=== PATIENT | male | born 1950 | race Caucasian/White ===

== ENCOUNTER 2018-01-29 16:06 | Inpatient (IN) | payer MEDICARE, OTHER ==
--- NOTE | 2018-01-29 16:13 | ED Physician Chart ---
ED Chief Complaint/HPI - Patient Information Date Seen:: 01/29/18 Time Seen:: 16:00 Chief Complaint:: Redness and Swelling History of Present Illness:: onset x 3 days of right sided redness and swelling; no report of trauma, H/As, S /T, neck pain, C/P, SOB, Abd. Pain, A/N/V/D/C, fever, chills, or urinary s/s Historian:: Patient, EMS Review:: Nurse's Note Reviewed, Old Chart Reviewed, EMS run form Reviewed ED Review of Systems - Review of Systems General/Constitutional: Fever, No chills, No weight loss, No weakness, No diaphoresis, No edema, No loss of appetite Skin: No skin lesions, No rash, No bruising Head: No headache, No light-headedness Eyes: No loss of vision, No pain, No diplopia ENT: No earache, No nasal drainage, No sore throat, No tinnitus Neck: No neck pain, No swelling, No thyromegaly, No stiffness, No mass noted Cardio Vascular: No chest pain, No palpitations, No PND, No orthopnea, No edema Pulmonary: No SOB, No cough, No sputum, No wheezing GI: No nausea, No vomiting, No diarrhea, No pain, No melena, No hematochezia, No constipation, No hematemesis G/U: No dysuria, No frequency, No hematuria, No nacturia Musculoskeletal: No bone or joint pain, No back pain, No muscle pain Endocrine: No polyuria, No polydipsia Psychiatric: No prior psych history, No depression, No anxiety, No suicidal ideation, No homicidal ideation, No auditory hallucination, No visual hallucination Hematopoietic: No bruising, No lymphadenopathy Allergic/Immuno: No urticaria, No angioedema Neurological: No syncope, No focal symptoms, No weakness, No paresthesia, No headache, No seizure, No dizziness, No confusion, No vertigo ED Past Medical History - Past Medical History Obtainable: Yes Past Medical History: HTN, Asthma/COPD, CVA/TIA, Dyslipidemia, ESRD, Arthritis Family History: Diabetes Melitus, HTN Social History: Non Smoker, No Alcohol, No Drug Use, Single, Care Facility Surgical History: other (Dialysis Catheter) Psychiatricy History: None Medication: Reviewed ED Physical Exam - Physical Examination General/Constitutional: Awake, Well-developed, well-nourished, Alert, No distress, GCS 15, Non-toxic appearing, Ambulatory Head: Atraumatic Eyes: Lids, conjuctiva normal, PERRL, EOMI Skin: Nl inspection, No rash, No skin lesions, No ecchymosis, Well hydrated, No lymphadenopathy Other Skin comments:: + cellulitis ENMT: External ears, nose nl, TM canals nl, Nasal exam nl, Lips, teeth, gums nl , Oropharynx nl, Tonsils nl Neck: Nontender, Full ROM w/o pain, No JVD, No nuchal rigidity, No bruit, No mass, No stridor Respiratory: Nl effort/Exclusion, Clear to Auscultation, No Wheeze/Rhonchi/Rales Other Respiratory comments:: Lungs: Decreased Breath Sounds on the right side Cardio Vascular: RRR, No murmur, gallop, rubs, NL S1 S2, Carotid/Femoral/Distal pulses equal bilaterally GI: No tenderness/rebounding/guarding, No organomegaly, No hernia, Normal BS's, Nondistended, No mass/bruits, No McBurney tenderness : No CVA tenderness Extremities: No tenderness or effusion, Full ROM, normal strength in all extremities, No edema, Normal digits & nails Neuro/Psych: Alert/oriented, DTR's symmetric, Normal sensory exam, Normal motor strength, Judgement/insight normal, Mood normal, Normal gait, No focal deficits Misc: Normal back, No paraspinal tenderness ED Labs/Radiology/EKG Results - Lab Results Comments:: WBC: 12.2; BUN: 47; Cr: 5.5 - Radiology Results Comments:: CXR: Right Pleural effusion - EKG Interpretations EKG Time:: 16:35 Rate & Rhythm: 67; NSR Comments:: non-specific st-t changes ED Septic Shock - . Is Septic Shock (SBP<90, OR Lactate>4 mmol\L) present?: No ED Reassessment (Disposition) - Reassessment Reassessment Condition:: Improved - Diagnosis Diagnosis:: Right Pleural Effusion; Leukocytosis; Cellulitis; Facial Abscess; ESRD - Aftercare/Follow up Instructions Aftercare/Follow-Up Instructions:: Counseled pt regarding lab results/diagnosis & need follow up, Counseled pt & family regarding lab results/diagnosis & need follow up - Patient Disposition Discharge/Transfer:: Acute Care w/in this hosp Accepting Physician:: Dr. Verdugo Time Called:: 1800 Time Responded:: 18:00 Admitted to:: Med/Surg Spoke to:: Dr. Verdugo Admitting Medical Physician:: Dr. Verdugo Condition at Disposition:: Stable, Improved
[2018-01-29 17:15] LABS: INR 0.95 (0.5-1.4); PROTHROMBIN TIME (TEST) 9.9 SECONDS (9.5-11.5)
[2018-01-29 17:20] LABS: ALB/GLOB RATIO 0.6 (1.0-1.8); ALBUMIN 2.4 gm/dL (4.2-5.5); ANION GAP 9.6 (7.0-16.0); BILIRUBIN,TOTAL 0.4 mg/dL (0.3-1.0); CALCIUM SERUM 9.1 mg/dL (8.6-10.3); CARBON DIOXIDE 34.7 mEq/L (21.0-31.0); GFR AFRICAN-AMERICAN 13.5 ml/min (>90); GFR NON AFRICAN-AMERICAN 11.1 ml/min; POTASSIUM SERUM 4.3 mEq/L (3.5-5.1); TOTAL PROTEIN,SERUM 6.2 gm/dL (6.0-8.3)
[2018-01-29 17:38] LABS: % BASOPHILS 0.8 % (0.0-2.0); % NEUTROPHILS 74.7 % (40.0-80.0); BASOPHILE ABSOLUTE 0.1 Th/cumm (0-0.2); LYMPHOCYTE ABSOLUTE 1.8 Th/cmm (1.5-3.0); MONOCYTE ABSOLUTE 0.9 Th/cmm (0.3-1.0)
[2018-01-29 17:46] LABS: % EOSINOPHILS 2.3 % (0.0-5.0); % LYMPHOCYTES 14.5 % (20.0-50.0); % MONOCYTES 7.7 % (2.0-10.0); EOSINOPHILE ABSOLUTE 0.3 Th/cmm (0.1-0.4); HEMATOCRIT 33.7 % (41.0-60); HEMOGLOBIN 11.4 gm/dL (12-16); MEAN CELL VOLUME 92.7 fl (80-99); MEAN CORPUSCULAR HEMOGLOBIN 31.5 pg (27.0-31.0); MEAN CORPUSCULAR HGB CONC 33.9 pg (28.0-36.0); MEAN PLATELET VOLUME 7.2 fl; NEUTROPHILE ABSOLUTE 9.1 Th/cmm (1.8-8.0); PLATELET COUNT 374 Th/cmm (150-400); RED BLOOD COUNT 3.63 Mil/cmm (3.80-5.80); RED CELL DISTRIBUTION WIDTH 14.6 % (11.5-20.0)
[2018-01-29] MEDS ORDERED: cefTRIAXone 1 GM in Sodium Chloride 0.9% 50 ML IV ONE (17:46)
[2018-01-29 17:48] LABS: CREATININE - SERUM 5.5 mg/dL (0.7-1.3)
[2018-01-29 17:49] LABS: WHITE BLOOD COUNT 12.2 Th/cmm (4.8-10.8)
[2018-01-29 22:49] LABS: URINE MICROSCOPIC INDICATED? YES; URINE SOURCE MIDSTREAM
[2018-01-29 22:58] LABS: URINE BILIRUBIN NEGATIVE (NEGATIVE); URINE BLOOD MODERATE (NEGATIVE); URINE GLUCOSE (UA) NEGATIVE (NEGATIVE); URINE KETONE NEGATIVE (NEGATIVE); URINE LEUKOCYTE ESTERASE LARGE (NEGATIVE); URINE NITRATE NEGATIVE (NEGATIVE); URINE PH 8.5 (4.6 - 8.0); URINE PROTEIN 100 mg/dL (NEGATIVE); URINE UROBILINOGEN 0.2 E.U./dL (0.2 - 1.0)
[2018-01-29 23:02] LABS: URINE CLARITY HAZY (CLEAR); URINE COLOR YELLOW
[2018-01-29 23:06] LABS: URINE BACTERIA MANY /hpf (NONE SEEN); URINE EPITHELIAL CELLS FEW /lpf (FEW); URINE WBC >100 /hpf (0-5)
[2018-01-29] MEDS ORDERED: Non-Formulary Item 1 EA (Lactobacillus Acidophilus [Acidophilus Lactobacillus] 1 EACH) PO SCH (23:15)
[2018-01-29] MEDS ORDERED: Non-Formulary Item 1 EA (Protein Hydrolysate,Milk [Liquid Protein Fortifier] 30 ML) PO SCH (23:15)
[2018-01-29] MEDS ORDERED: Morphine Sulfate 2 mg/mL 1mL Syr IVP PRN (23:18)
[2018-01-29] MEDS: Hydrocodone/APAP 5mg/325mg Tab PO PRN (23:29)
[2018-01-30] MEDS ORDERED: Morphine Sulfate 4 mg/mL 1mL Syr ONE (04:00)
[2018-01-30 06:04] VITALS: BP 180/84
[2018-01-30] MEDS ORDERED: Albuterol Nebulizer 2.5mg/3mL HHN PRN (08:00)
--- NOTE | 2018-01-30 08:13 | Diagnostic Imaging Report ---
Exam: Portable chest x-ray HISTORY: Pain. Prior exams: None Findings: Portable examination of the chest at 1625 hours was reviewed, no prior studies available for comparison The study demonstrates complete opacification of the right hemithorax most likely a fusion atelectasis with superimposed pneumonia. Endobronchial lesion cannot be excluded. The left lung parenchyma is well aerated. Bony thorax intact. 2 cm amorphous calcification is noted near the left acromioclavicular joint. Right-sided subclavian catheter terminates in superior vena cava IMPRESSION: Complete opacification right hemithorax. Clinical correlation and bronchoscopy may be helpful with follow-up examination recommended
[2018-01-30] MEDS: Lactobacillus Rhamnosus GG 15 Billion CFU CAP.SPRINK PO SCH (09:41)
[2018-01-30] MEDS: Vitamin B Complex w/Vitamin C Tab PO SCH (09:43)
[2018-01-30] MEDS: Morphine Sulfate 4 mg/mL 1mL Syr IVP PRN ×2 (10:15→14:36)
--- NOTE | 2018-01-30 10:26 | Diagnostic Imaging Report ---
Ultrasound soft tissues neck History: Pain rule out facial abscess Comparison: None Technique/procedure: Sonography of concern along the right mandibular region was performed in multiple planes. There is edema seen along the right mandibular region. Small nodules are seen in this region largest measuring 0.4 x 0.3 cm. No drainable fluid collection identified. IMPRESSION: Edema along the right mandibular area in the region of concern which may be due to cellulitis. No drainable fluid collection identified at this time. Small nodule seen in this region, nonspecific, and may represent small lymph nodes. If necessary CT follow-up may be helpful.
--- NOTE | 2018-01-30 12:21 | History & Physical ---
ADMIT DATE: CHIEF COMPLAINT: Right facial swelling and redness. HISTORY OF PRESENT ILLNESS: This is a 67-year-old gentleman, who resides at [facility] and who has past medical history significant for end-stage renal disease, on dialysis for about 7 years; COPD; hyperlipidemia; type 2 diabetes, who was in his usual state of health until 3 days ago when he woke up with right facial swelling, redness and pain. The patient denies any trauma or any unusual events. He had hemodialysis on Monday and on Monday as he woke up that is when he felt the swelling and the pain. He denies any fever, chills and again no trauma reported. Pertinent findings on admission included a white count of 12.2, UA consistent with a UTI and an x-ray showing complete opacification of the right hemithorax. PAST MEDICAL HISTORY: As noted above. He was on peritoneal dialysis up to a few months ago until he was diagnosed with peritonitis. He is currently on hemodialysis Tuesdays, and Saturdays; also chronic anemia; malnutrition. PAST SURGICAL HISTORY: He had cholecystectomy many years ago and he also had a drainage tube placed at that time and peritoneal dialysis placement. FAMILY HISTORY: Likely noncontributory to this admission. SOCIAL HISTORY: Longstanding history of nicotine dependence. He smoked about a pack a day for about 50 years, he quit a few months ago. Denies any alcohol or illicit drug usage. He lives at [facility]. ALLERGIES: NKDA. OUTPATIENT MEDICATIONS: Eliquis 2.5 b.i.d.; aspirin 81 q. day; fungal cream q. daily; Tylenol 650 q. 6 hours p.r.n. for pain; atorvastatin 40 at bedtime; Sensipar 30 q. day; Colace 100 q. day; Epogen 10,000 units Monday, Monday and Fridays; Nephro-Fito 1 tab q. day; Lasix 40 q. day; lactobacillus acidophilus 1 tab b.i.d.; Xopenex p.r.n. for SOB; Megace 40 q. day; metoprolol 50 b.i.d.; midodrine 5 t.i.d.; protein supplements t.i.d. with meals; Renvela 800 mg t.i.d.; Spiriva 18 mcg q. day. REVIEW OF SYSTEMS: CONSTITUTIONAL: No fever or chills, no recent weight loss. CARDIAC: No chest pain, palpitations. PULMONARY: Chronic cough but no shortness of breath. Denies any hemoptysis. GASTROINTESTINAL: No bowel habit changes. GENITOURINARY: Denies any dysuria or hematuria. NEUROLOGIC: No changes in vision, no headaches, no blurry vision. PHYSICAL EXAMINATION: VITAL SIGNS: Temperature 97.2, pulse 69, BP 174/85, respirations 18, satting 95-97% on room air. GENERAL: Well-developed, well-nourished, awake, alert and oriented x 3, not in acute distress. HEAD: He is atraumatic, normocephalic. On the right facial exam around the parotid gland, there is noticeable swelling and some warmth to touch. Currently, there is mild erythema as compared to the left side. There are no open wounds or drainage. PERRL. EOMI. NECK: There is no JVD or LAD. CARDIAC: Regular rate and rhythm with distant sounds. S1 and S2 are present. LUNGS: Diminished on the right side, otherwise clear to auscultation bilaterally. ABDOMEN: Soft, supple, nontender, nondistended, normoactive bowel sounds. There is a peritoneal dialysis catheter in place. EXTREMITIES: Lower extremity, there is no edema. LABORATORY DATA: White count 12.2, H and H 11/34 with a platelet count of 374. Sodium 135, potassium 4.3, chloride 95, CO2 34, BUN 47, creatinine 5.5. Troponin level was negative. UA shows positive for protein, moderate blood, large leukocyte esterase, 2-5 rbc's, over 100 wbc's and many bacteria. DIAGNOSTICS: Chest x-ray, again please refer to the HPI. EKG shows sinus rhythm, 67. ASSESSMENT: 1. Right facial swelling and redness consistent with cellulitis. Rule out abscess versus parotitis. 2. Complete opacification of the right hemithorax. Differential diagnosis includes lung collapse versus pleural effusion vs obstruction (mucous plug , mass). 3. Leukocytosis. 4. Urinary tract infection. 5. History of end-stage renal disease, on hemodialysis. 6. History of chronic obstructive pulmonary disease - appears to be stable clinically. 7. History of hyperlipidemia. 8. History of diabetes. PLAN: The patient has been admitted to the Medical/Surgical floor for further management and care. The patient has been placed on vancomycin, Rocephin and will be kept on his other medications as scheduled. An ultrasound will be done of the right facial swelling to rule out abscess and the patient will also be seen by Nephrology and Pulmonary given his hemodialysis and opacification of the right hemithorax. JOB# [id number] [place]
[2018-01-30] MEDS ORDERED: Albumin 25% 25gm/100mL 25 GM/100 ML BTL IV ONE (14:23)
[2018-01-30] MEDS: Ipratropium Neb 0.5 mg/2.5 mL UD HHN SCH ×2 (14:48→18:48)
[2018-01-30] MEDS: Albuterol/Ipratropium Neb 3 ML AERS HHN SCH ×2 (14:48→18:48)
[2018-01-30] MEDS: cefTRIAXone 1 GM in Sodium Chloride 0.9% 50 ML IV SCH (21:20)
[2018-01-31] MEDS: Albuterol/Ipratropium Neb 3 ML AERS HHN SCH ×7 (00:51→23:35)
[2018-01-31] MEDS: Ipratropium Neb 0.5 mg/2.5 mL UD HHN SCH (00:57)
[2018-01-31 05:37] LABS: % BASOPHILS 1.1 % (0.0-2.0); % EOSINOPHILS 2.4 % (0.0-5.0); % LYMPHOCYTES 14.3 % (20.0-50.0); % MONOCYTES 8.5 % (2.0-10.0); % NEUTROPHILS 73.7 % (40.0-80.0); BASOPHILE ABSOLUTE 0.1 Th/cumm (0-0.2); EOSINOPHILE ABSOLUTE 0.3 Th/cmm (0.1-0.4); HEMATOCRIT 32.4 % (41.0-60); HEMOGLOBIN 10.9 gm/dL (12-16); LYMPHOCYTE ABSOLUTE 1.9 Th/cmm (1.5-3.0); MEAN CORPUSCULAR HGB CONC 33.7 pg (28.0-36.0); MONOCYTE ABSOLUTE 1.1 Th/cmm (0.3-1.0); PLATELET COUNT 433 Th/cmm (150-400); RED BLOOD COUNT 3.52 Mil/cmm (3.80-5.80); RED CELL DISTRIBUTION WIDTH 14.6 % (11.5-20.0)
[2018-01-31 05:43] LABS: ANION GAP 13.1 (7.0-16.0); CALCIUM SERUM 8.8 mg/dL (8.6-10.3); CARBON DIOXIDE 26.8 mEq/L (21.0-31.0); GFR AFRICAN-AMERICAN 15.4 ml/min (>90); GFR NON AFRICAN-AMERICAN 12.7 ml/min; PHOSPHOROUS 4.1 mg/dL (2.5-5.0); POTASSIUM SERUM 3.9 mEq/L (3.5-5.1)
[2018-01-31 05:44] LABS: WHITE BLOOD COUNT 13.4 Th/cmm (4.8-10.8)
[2018-01-31 06:00] LABS: CREATININE - SERUM 4.9 mg/dL (0.7-1.3)
--- NOTE | 2018-01-31 08:08 | Diagnostic Imaging Report ---
CHEST X-RAY: AP view INDICATION: Shortness of breath COMPARISON: Chest x-ray 01/29/2018 FINDINGS: Right dialysis catheter is stable. Persistent complete opacification of the right hemithorax is noted. Congestive changes are noted. IMPRESSION: Persistent complete opacification of the right hemithorax which may be due to combination of large right effusion, right lung collapse and pneumonia. Cortical correlation and follow-up recommended. Overall no significant change. Congestive changes.
[2018-01-31] MEDS: Morphine Sulfate 4 mg/mL 1mL Syr IVP PRN (08:17)
[2018-01-31] MEDS: Lactobacillus Rhamnosus GG 15 Billion CFU CAP.SPRINK PO SCH (08:27)
[2018-01-31] MEDS: Vitamin B Complex w/Vitamin C Tab PO SCH (08:28)
--- NOTE | 2018-01-31 08:51 | Consultation ---
DATE OF CONSULTATION: 01/30/[address] Verdugo. Thank you very much, Dr. Verdugo for this consultation. HISTORY OF PRESENT ILLNESS: The patient is a 67-year-old male, who presents with abnormal labs. Chest x-ray showed right lung atelectasis versus collapse. The patient denies any shortness of breath. He is on dialysis 3 times a week. He has history of smoking for over 50 years, quit 2 months ago, he said. He denies any cough or congestion. No chest pain. OTHER PAST MEDICAL HISTORY: Hypertension. SOCIAL HISTORY: As above. REVIEW OF SYSTEMS: GENERAL: Weakness, no fatigue. CARDIOVASCULAR: No chest pain. RESPIRATORY: Shortness of breath. GASTROINTESTINAL: No nausea or vomiting. PHYSICAL EXAMINATION: GENERAL: Awake, alert, not in acute distress. VITAL SIGNS: Temperature 97.2, pulse 69, respiration is 20, blood pressure 174/85, saturation 95% on 2 liters oxygen. HEENT: Atraumatic, normocephalic. Pupils are equal and reactive to light and accommodation. Ears, nose and throat are normal. NECK: Supple. No JVD. CHEST: There is significant decreased breath sounds on right side. Few rhonchi bilaterally. HEART: Regular rate and rhythm. ABDOMEN: Soft. EXTREMITIES: No edema. Chest x-ray: Opacification of the right lung. LABORATORY DATA: WBC 12.2, hemoglobin is 7.4, hematocrit 33.7, platelets is 374. Sodium is 135, potassium 4.3, BUN is 47, creatinine 5.5. UA shows some WBCs and protein and large leukocyte esterase. IMPRESSION: 1. A 67-year-old male with a right lung opacification, possible endobronchial lesion versus atelectasis versus effusion as well. 2. Possibly underlying chronic obstructive pulmonary disease for many years of smoking. 3. Renal failure, on dialysis. 4. Urinary tract infection. PLAN: 1. IV antibiotics. 2. Nebulizer treatment. 3. Steroids. 4. CPT, supportive care, dialysis. 5. CT of the chest for further evaluation might need a bronchoscopy later. Thank you very much for this consultation. I will follow the patient with you. JOB# [id number]
--- NOTE | 2018-01-31 10:33 | Diagnostic Imaging Report ---
CT Chest without IV contrast HISTORY: Pleural effusion/pneumonia/atelectasis COMPARISON: Chest x-ray earlier the same day. Technique: Axial images were obtained from the base of the neck to the upper abdomen without IV contrast. Reconstructions were made. Total DLP 348, CTD I 17.8 Findings: A right IJ dialysis catheter is noted terminating within the cavoatrial junction. Assessment of the mediastinum is limited due to lack of IV contrast. No evidence of mediastinal lymphadenopathy. Heavy atherosclerosis is noted with heavy coronary artery calcifications. Heart size is normal. Trace pericardial effusion is noted. No evidence of an aortic aneurysm. There is a large right pleural effusion. There is also collapse of the right lung. Small left pleural effusion is seen with left basal compressive atelectatic changes. The upper abdomen demonstrates evidence of prior cholecystectomy. Generalized prominence of the common bile duct is noted measuring up to 1.2 cm. There is severe bilateral renal atrophy. Heavy atherosclerosis is noted. Degenerative changes of the spine are noted with multilevel Schmorl's node formation. IMPRESSION: Large right effusion with compressive atelectasis and collapse of the right lung. There may be underlying pneumonia. Small left effusion with left basal passive atelectatic consolidative changes. Heavy atherosclerotic vascular disease with coronary artery calcifications. Right IJ dialysis catheter with tip in the cavoatrial junction Severe bilateral renal atrophy Evidence of prior cholecystectomy. Common common bile duct measures up to 1.2 cm may be related to patient's previous cholecystectomy.
[2018-01-31] MEDS ORDERED: Vancomycin HCl 1.5 GM in Sodium Chloride 0.9% 500 ML IV ONE (11:00)
--- NOTE | 2018-01-31 13:21 | Consultation ---
DATE OF CONSULTATION: 01/30/2018 REASON FOR CONSULT: Electrolyte imbalance and fluid management. HISTORY OF PRESENT ILLNESS: This is a 67-year-old male with past medical history of end-stage renal disease, on hemodialysis, who came in because of right facial edema/erythema. Three days prior to admission, the patient noticed progressive increase in his right facial edema. A few hours prior to admission, he noted erythema along with increase amount of edema. He denied any fever/chills, facial pain, trauma, earache, toothache, nor any drainage. His white count was 12.2. Chest x-ray revealed complete right lung opacification. Facial ultrasound revealed right mandibular edema, questionable cellulitis with small lymph nodes. PAST MEDICAL HISTORY: 1. End-stage renal disease, on hemodialysis. The patient was on peritoneal dialysis, but developed peritonitis. Thus, he was switched to hemodialysis. 2. Type 2 diabetes mellitus. 3. Renal osteodystrophy. 4. Anemia, iron deficiency/chronic disease. 5. Secondary hyperparathyroidism. 6. COPD. PAST SURGICAL HISTORY: 1. Status post cholecystectomy. 2. Status post removal of infected PD catheter. CURRENT MEDICATIONS: He is currently on acetylcysteine, atorvastatin, ceftriaxone, cinacalcet, Epogen, furosemide, ipratropium, lactobacillus, megestrol acetate, metoprolol, midodrine, sevelamer, and vancomycin. ALLERGIES: No known drug allergies. SOCIAL HISTORY: He did have a history of smoking and quit only about 2 months ago. Denied any alcohol abuse. He used to be delivery truck driver heavy. FAMILY HISTORY: Noncontributory to present illness. REVIEW OF SYSTEMS: GENERAL: He did complain of weakness. Appetite had been fair. No fever or chills. HEENT: No mention of headaches nor dizziness. However, he did have that right facial swelling with some erythema. Denied any headaches, dizziness, blurring of vision, or decrease in hearing acuity. CARDIORESPIRATORY: Has a history of hypertension. No chest pain, palpitations, diaphoresis, cough and surprisingly, no shortness of breath nor congestion. GASTROINTESTINAL: No nausea or vomiting, abdominal pain or cramping, hematemesis, melena, hematochezia nor diarrhea. ENDOCRINE: No history of dyslipidemia nor any thyroid abnormalities. MUSCULOSKELETAL: Multiple joint arthralgias. GENITOURINARY: History of kidney failure, on hemodialysis. NEUROPSYCH: No syncopal episode nor seizure activity. PHYSICAL EXAMINATION: GENERAL: The patient is alert, verbal, and comfortable. VITAL SIGNS: Blood pressure is 174/85, pulse is 69, and temperature 97.2 degrees. SKIN: Good turgor and warm. No rash, no jaundice appreciated. HEENT: Head is normocephalic and atraumatic. Eyes; extraocular muscles intact. Pupils are equal, round, and reactive to light and accommodate. Anicteric sclerae. Pale conjunctivae. Nose, midline nasal septum. Mouth: Dry mucosa, adequate dentition. Face; mild right facial swelling with minimal erythema. No tenderness on palpation, no warmth. NECK: Supple. No adenopathy. No cervical nodes. Trachea palpated in the midline. CHEST AND CARDIOVASCULAR SYSTEM: S1 and S2. No rub, murmur and no gallop appreciated. Point of maximal impulse fifth intercostal space, left midclavicular line. No abdominal or femoral bruits are appreciated. LUNGS: Equal expansion. No use of accessory muscles. No supraclavicular retractions. Markedly diminished right-sided breath sounds, but no rales, wheezes, nor rhonchi appreciated. ABDOMEN: Flat and soft. Positive for bowel sounds. No bruits either diastolic or systolic. RECTAL: The patient refused. GENITOURINARY: Normal-appearing male genitalia. MUSCULOSKELETAL: No effusions present in his joints with adequate range of motion. EXTREMITIES: No evidence of edema, cyanosis, nor clubbing with palpable femoral, popliteal, and dorsalis pedis pulses. NEUROLOGIC: The patient is alert, verbal. Motor is 5/5. Cranial nerves 2-12 intact. Sensory intact. LABORATORY DATA: White count 12.2, hemoglobin 11.4, hematocrit 33.7, platelets 374, and polys 74.7%. Sodium is 135, potassium 4.3, chloride 95, CO2 34, BUN 47, creatinine 5.5, glucose 92, and albumin 2.4. Urine revealed large leukocyte esterase, greater than 100 wbc's, many bacteria. IMPRESSION: 1. End-stage renal disease, on hemodialysis. 2. Right facial edema with erythema, possible cellulitis, rule out any lymph node obstruction. 3. Right lung opacification with history of longstanding smoking, possible effusion secondary to malignancy or even some form of pneumonitis; mucus plug; severe atelectasis. 4. Complicated urinary tract infection. 5. Type 2 diabetes mellitus. 6. Renal osteodystrophy. 7. Anemia of chronic kidney disease, iron deficiency. 8. Secondary hyperparathyroidism. 9. Chronic obstructive pulmonary disease. PLAN: 1. He will continue on with hemodialysis. 2. Continue Rocephin. 3. Repeat chest x-ray, request for a CT scan of the chest. 4. Electrolytes. 5. Intact PTH. [facility]# [id number]
--- NOTE | 2018-01-31 14:05 | General Progress Note ---
Subjective - Review of Systems Service Date: 01/31/18 Subjective: feels better today, denied any cough/congestion Objective - Results Result Diagrams: 01/31/18 04:15 01/31/18 04:15 Recent Labs: Laboratory Last Values WBC 13.4 Th/cmm (4.8-10.8) H 01/31/18 04:15 RBC 3.52 Mil/cmm (3.80-5.80) L 01/31/18 04:15 Hgb 10.9 gm/dL (12-16) L 01/31/18 04:15 Hct 32.4 % (41.0-60) L 01/31/18 04:15 MCV 92.0 fl (80-99) 01/31/18 04:15 MCH 31.0 pg (27.0-31.0) 01/31/18 04:15 MCHC Differential 33.7 pg (28.0-36.0) 01/31/18 04:15 RDW 14.6 % (11.5-20.0) 01/31/18 04:15 Plt Count 433 Th/cmm (150-400) H 01/31/18 04:15 MPV 7.0 fl 01/31/18 04:15 Neutrophils % 73.7 % (40.0-80.0) 01/31/18 04:15 Lymphocytes % 14.3 % (20.0-50.0) L 01/31/18 04:15 Monocytes % 8.5 % (2.0-10.0) 01/31/18 04:15 Eosinophils % 2.4 % (0.0-5.0) 01/31/18 04:15 Basophils % 1.1 % (0.0-2.0) 01/31/18 04:15 ESR 87 mm/hr (0-20) H 01/31/18 04:15 PT 9.9 SECONDS (9.5-11.5) 01/29/18 16:42 INR 0.95 (0.5-1.4) 01/29/18 16:42 PTT (Actin FS) 29.9 SECONDS (26.0-38.0) 01/29/18 16:42 Sodium 134 mEq/L (136-145) L 01/31/18 04:15 Potassium 3.9 mEq/L (3.5-5.1) 01/31/18 04:15 Chloride 98 mEq/L (98-107) 01/31/18 04:15 Carbon Dioxide 26.8 mEq/L (21.0-31.0) 01/31/18 04:15 Anion Gap 13.1 (7.0-16.0) 01/31/18 04:15 BUN 35 mg/dL (7-25) H 01/31/18 04:15 Creatinine 4.9 mg/dL (0.7-1.3) H* 01/31/18 04:15 Est GFR ( Amer) 15.4 ml/min (>90) 01/31/18 04:15 Est GFR (Non-Af Amer) 12.7 ml/min 01/31/18 04:15 BUN/Creatinine Ratio 7.1 01/31/18 04:15 Glucose 72 mg/dL (70-105) 01/31/18 04:15 Whole Bld Lactic Acid 0.55 mmol/L (0.60-1.99) L 01/29/18 16:42 Calcium 8.8 mg/dL (8.6-10.3) 01/31/18 04:15 Phosphorus 4.1 mg/dL (2.5-5.0) 01/31/18 04:15 Magnesium 2.0 mg/dL (1.9-2.7) 01/31/18 04:15 Total Bilirubin 0.4 mg/dL (0.3-1.0) 01/29/18 16:42 AST 13 U/L (13-39) 01/29/18 16:42 ALT 7 U/L (7-52) 01/29/18 16:42 Alkaline Phosphatase 67 U/L (34-104) 01/29/18 16:42 Creatine Kinase 12 U/L (30-223) L 01/29/18 16:42 Troponin I 0.02 ng/mL (0.01-0.05) 01/29/18 16:42 C-Reactive Protein 11.4 mg/dL (0.0-0.9) H 01/31/18 04:15 Total Protein 6.2 gm/dL (6.0-8.3) 01/29/18 16:42 Albumin 2.4 gm/dL (4.2-5.5) L 01/29/18 16:42 Globulin 3.8 gm/dL 01/29/18 16:42 Albumin/Globulin Ratio 0.6 (1.0-1.8) L 01/29/18 16:42 Triglycerides 72 mg/dL (<150) 01/31/18 04:15 Cholesterol 97 mg/dL (<200) 01/31/18 04:15 LDL Cholesterol Direct 45 mg/dL (75-193) L 01/31/18 04:15 HDL Cholesterol 36 mg/dL (23-92) 01/31/18 04:15 TSH 2.15 uIU/ml (0.34-5.60) 01/31/18 04:15 Urine Source MIDSTREAM 01/29/18 22:30 Urine Color YELLOW 01/29/18 22:30 Urine Clarity HAZY (CLEAR) 01/29/18 22:30 Urine pH 8.5 (4.6 - 8.0) 01/29/18 22:30 Ur Specific [place] 1.015 (1.005-1.030) 01/29/18 22:30 Urine Protein 100 mg/dL (NEGATIVE) H 01/29/18 22:30 Urine Glucose (UA) NEGATIVE mg/dL (NEGATIVE) 01/29/18 22:30 Urine Ketones NEGATIVE mg/dL (NEGATIVE) 01/29/18 22:30 Urine Blood MODERATE (NEGATIVE) H 01/29/18 22:30 Urine Nitrate NEGATIVE (NEGATIVE) 01/29/18 22:30 Urine Bilirubin NEGATIVE (NEGATIVE) 01/29/18 22:30 Urine Urobilinogen 0.2 E.U./dL (0.2 - 1.0) 01/29/18 22:30 Ur Leukocyte Esterase LARGE (NEGATIVE) H 01/29/18 22:30 Urine RBC 2-5 /hpf (0-5) H 01/29/18 22:30 Urine WBC >100 /hpf (0-5) H 01/29/18 22:30 Ur Epithelial Cells FEW /lpf (FEW) 01/29/18 22:30 Urine Bacteria MANY /hpf (NONE SEEN) H 01/29/18 22:30 Random Vancomycin 10.1 ug/mL (5.0-40.0) 01/31/18 04:15 - Physical Exam Vitals and I&O: Vital Signs Temp 97.3 F 01/31/18 07:37 Pulse 78 01/31/18 11:31 Resp 18 01/31/18 11:31 BP 130/72 01/31/18 08:27 Pulse Ox 96 01/31/18 11:31 Intake & Output 01/30/18 01/31/18 01/31/18 18:59 06:59 18:59 Intake Total 550 170 Output Total 650 Balance -100 170 Weight (lbs) 81.647 kg 81.647 kg Intake: Intake, IV Amount 50 cefTRIAXone 1 gm In 50 Sodium Chloride 0.9% 50 ml @ 100 mls/hr IV Q24HR [facility] Rx#:[id number] Oral 550 120 Output: Urine 650 Other: # Voids 1 # Bowel Movements 0 Weight Source Bedscale Bedscale Active Medications: Current Medications Acetaminophen (Tylenol) 650 mg PO Q6HR PRN PRN Reason: PAIN Stop: 03/30/18 23:07 Acetaminophen/Hydrocodone Bitart ([place] 5mg/325mg) 2 tab PO Q4H PRN PRN Reason: Pain (Moderate) Stop: 03/30/18 23:16 Last Admin: 01/29/18 23:29 Dose: 2 tab Acetylcysteine (Mucomyst 20%) 2 ml HHN Q4HRT [facility] Stop: 03/31/18 14:59 Last Admin: 01/31/18 11:27 Dose: 2 ml Albuterol Sulfate (Albuterol 2.5mg/3ml Neb Ud) 2.5 mg HHN Q1H PRN PRN Reason: Respiratory Distress Stop: 03/31/18 07:59 Albuterol/Ipratropium (Duoneb Neb) 3 ml HHN Q4HRT [facility] Stop: 03/31/18 14:59 Last Admin: 01/31/18 11:27 Dose: 3 ml Atorvastatin Calcium (Lipitor) 40 mg PO HS [facility] Stop: 03/31/18 20:59 Last Admin: 01/30/18 21:19 Dose: 40 mg Cinacalcet (Sensipar) 30 mg PO DAILY [facility] Stop: 03/31/18 08:59 Last Admin: 01/31/18 08:28 Dose: Not Given Diclofenac Sodium (Voltaren) 50 mg PO BID [facility] Stop: 04/01/18 08:59 Last Admin: 01/31/18 08:25 Dose: 50 mg Docusate Sodium (Colace) 100 mg PO DAILY [facility] Stop: 03/31/18 08:59 Last Admin: 01/31/18 08:26 Dose: 100 mg Epoetin Vishal (Epogen) 10,000 units SUBQ MWF@1600 [facility] Stop: 04/01/18 15:59 Furosemide (Lasix) 40 mg PO DAILY [facility] Stop: 03/31/18 08:59 Last Admin: 01/31/18 08:26 Dose: 40 mg Heparin Sodium (Porcine) (Heparin) 5,000 units IVP ONCE@2100 [facility] Stop: 01/31/18 21:01 Last Admin: 01/30/18 21:18 Dose: 5,000 units Ceftriaxone Sodium 1 gm/ (Sodium Chloride) 50 mls @ 100 mls/hr IV Q24HR [facility] Stop: 03/31/18 18:59 Last Infusion: 01/30/18 21:50 Dose: Infused Ipratropium [place] (Atrovent Neb 0.5mg/2.5ml) 0.5 mg HHN Q6HRT [facility] Stop: 03/31/18 12:59 Last Admin: 01/31/18 00:57 Dose: Not Given Lactobacillus Rhamnosus (Culturelle 15b) 1 each PO DAILY [facility] Stop: 03/30/18 23:14 Last Admin: 01/31/18 08:27 Dose: 1 each Megestrol Acetate (Megace) 400 mg PO DAILY [facility] PRN Reason: Protocol Stop: 03/31/18 08:59 Last Admin: 01/31/18 09:31 Dose: Not Given Metoprolol Tartrate (Lopressor) 50 mg PO BID [facility] Stop: 03/30/18 23:14 Last Admin: 01/31/18 08:27 Dose: 50 mg Midodrine (Proamatine) 5 mg PO TID PRN PRN Reason: HYPOTENSION Stop: 03/30/18 23:07 Miscellaneous (Vancomycin Iv Per Pharmacy) 1 ea MC PRN [facility] Stop: 03/30/18 21:44 Morphine Sulfate (Morphine) 1 mg IVP Q4HR PRN PRN Reason: Pain (Severe) Stop: 03/30/18 23:17 Last Admin: 01/31/18 08:17 Dose: 1 mg Sevelamer Carbonate (Renvela) 800 mg PO TID [facility] Stop: 03/30/18 23:14 Last Admin: 01/31/18 08:28 Dose: 800 mg Vitamin B Complex/Vit C/Folic Acid (Vitamin B Complex W/Vitamin C) 1 tab PO DAILY [facility] Stop: 03/31/18 08:59 Last Admin: 01/31/18 08:28 Dose: 1 tab General: Alert, Oriented x3, Cooperative, No acute distress HEENT: Atraumatic, PERRLA, EOMI, Mucous membr. moist/pink Neck: Supple, +2 carotid pulse wo bruit Cardiovascular: Regular rate, Normal S1, Normal S2 Lungs: Other (decreased BS right lung field) Abdomen: Bowel sounds, Soft Extremities: no Edema Neurological: Sensation intact Skin: no Rash Psych/Mental Status: Mood NL Assessment/Plan - Problem List Patient Problems: All Active Problems RIGHT FACIAL SWELLING AND PAIN (Acute) - Assessment Assessment: ESRD on HD Right facial cellulitis Right lung opacification Cx UTI T2DM Anemia of CD - Plan Plan: Lab - Result Diagrams 01/31/18 04:15 01/31/18 04:15 Current Medications Acetaminophen (Tylenol) 650 mg PO Q6HR PRN PRN Reason: PAIN Stop: 03/30/18 23:07 Acetaminophen/Hydrocodone Bitart ([place] 5mg/325mg) 2 tab PO Q4H PRN PRN Reason: Pain (Moderate) Stop: 03/30/18 23:16 Last Admin: 01/29/18 23:29 Dose: 2 tab Acetylcysteine (Mucomyst 20%) 2 ml HHN Q4HRT [facility] Stop: 03/31/18 14:59 Last Admin: 01/31/18 11:27 Dose: 2 ml Albuterol Sulfate (Albuterol 2.5mg/3ml Neb Ud) 2.5 mg HHN Q1H PRN PRN Reason: Respiratory Distress Stop: 03/31/18 07:59 Albuterol/Ipratropium (Duoneb Neb) 3 ml HHN Q4HRT [facility] Stop: 03/31/18 14:59 Last Admin: 01/31/18 11:27 Dose: 3 ml Atorvastatin Calcium (Lipitor) 40 mg PO HS [facility] Stop: 03/31/18 20:59 Last Admin: 01/30/18 21:19 Dose: 40 mg Cinacalcet (Sensipar) 30 mg PO DAILY [facility] Stop: 03/31/18 08:59 Last Admin: 01/31/18 08:28 Dose: Not Given Diclofenac Sodium (Voltaren) 50 mg PO BID [facility] Stop: 04/01/18 08:59 Last Admin: 01/31/18 08:25 Dose: 50 mg Docusate Sodium (Colace) 100 mg PO DAILY [facility] Stop: 03/31/18 08:59 Last Admin: 01/31/18 08:26 Dose: 100 mg Epoetin Vishal (Epogen) 10,000 units SUBQ MWF@1600 [facility] Stop: 04/01/18 15:59 Furosemide (Lasix) 40 mg PO DAILY [facility] Stop: 03/31/18 08:59 Last Admin: 01/31/18 08:26 Dose: 40 mg Heparin Sodium (Porcine) (Heparin) 5,000 units IVP ONCE@2100 [facility] Stop: 01/31/18 21:01 Last Admin: 01/30/18 21:18 Dose: 5,000 units Ceftriaxone Sodium 1 gm/ (Sodium Chloride) 50 mls @ 100 mls/hr IV Q24HR [facility] Stop: 03/31/18 18:59 Last Infusion: 01/30/18 21:50 Dose: Infused Ipratropium [place] (Atrovent Neb 0.5mg/2.5ml) 0.5 mg HHN Q6HRT [facility] Stop: 03/31/18 12:59 Last Admin: 01/31/18 00:57 Dose: Not Given Lactobacillus Rhamnosus (Culturelle 15b) 1 each PO DAILY [facility] Stop: 03/30/18 23:14 Last Admin: 01/31/18 08:27 Dose: 1 each Megestrol Acetate (Megace) 400 mg PO DAILY [facility] PRN Reason: Protocol Stop: 03/31/18 08:59 Last Admin: 01/31/18 09:31 Dose: Not Given Metoprolol Tartrate (Lopressor) 50 mg PO BID [facility] Stop: 03/30/18 23:14 Last Admin: 01/31/18 08:27 Dose: 50 mg Midodrine (Proamatine) 5 mg PO TID PRN PRN Reason: HYPOTENSION Stop: 03/30/18 23:07 Miscellaneous (Vancomycin Iv Per Pharmacy) 1 ea MC PRN [facility] Stop: 03/30/18 21:44 Morphine Sulfate (Morphine) 1 mg IVP Q4HR PRN PRN Reason: Pain (Severe) Stop: 03/30/18 23:17 Last Admin: 01/31/18 08:17 Dose: 1 mg Sevelamer Carbonate (Renvela) 800 mg PO TID [facility] Stop: 03/30/18 23:14 Last Admin: 01/31/18 08:28 Dose: 800 mg Vitamin B Complex/Vit C/Folic Acid (Vitamin B Complex W/Vitamin C) 1 tab PO DAILY [facility] Stop: 03/31/18 08:59 Last Admin: 01/31/18 08:28 Dose: 1 tab Lab - Result Diagrams 01/31/18 04:15 01/31/18 04:15 schedule for HD in am less right facial discomfort CT scan chest revealed large right effusion 2/2 compatible ATx & collapse right lung ? PNA continue Rocephin WBC @ 13.4
[2018-01-31] MEDS: Epoetin Alfa 20000 Units/mL Vial SUBQ SCH (16:41)
[2018-01-31] MEDS: cefTRIAXone 1 GM in Sodium Chloride 0.9% 50 ML IV SCH (18:11)
[2018-02-01] MEDS: Albuterol/Ipratropium Neb 3 ML AERS HHN SCH ×6 (03:02→22:53)
[2018-02-01 05:51] LABS: % BASOPHILS 1.2 % (0.0-2.0); % EOSINOPHILS 4.6 % (0.0-5.0); % LYMPHOCYTES 16.1 % (20.0-50.0); % MONOCYTES 7.9 % (2.0-10.0); % NEUTROPHILS 70.2 % (40.0-80.0); BASOPHILE ABSOLUTE 0.1 Th/cumm (0-0.2); EOSINOPHILE ABSOLUTE 0.5 Th/cmm (0.1-0.4); HEMATOCRIT 31.6 % (41.0-60); HEMOGLOBIN 10.5 gm/dL (12-16); LYMPHOCYTE ABSOLUTE 1.6 Th/cmm (1.5-3.0); MEAN CELL VOLUME 92.2 fl (80-99); MEAN CORPUSCULAR HEMOGLOBIN 30.6 pg (27.0-31.0); MEAN CORPUSCULAR HGB CONC 33.2 pg (28.0-36.0); MEAN PLATELET VOLUME 6.9 fl; MONOCYTE ABSOLUTE 0.8 Th/cmm (0.3-1.0); NEUTROPHILE ABSOLUTE 7.1 Th/cmm (1.8-8.0); PLATELET COUNT 412 Th/cmm (150-400); RED BLOOD COUNT 3.42 Mil/cmm (3.80-5.80); RED CELL DISTRIBUTION WIDTH 14.5 % (11.5-20.0); WHITE BLOOD COUNT 10.1 Th/cmm (4.8-10.8)
[2018-02-01 06:07] LABS: ANION GAP 15.1 (7.0-16.0); CALCIUM SERUM 8.7 mg/dL (8.6-10.3); CARBON DIOXIDE 25.4 mEq/L (21.0-31.0); GFR AFRICAN-AMERICAN 11.1 ml/min (>90); GFR NON AFRICAN-AMERICAN 9.2 ml/min; POTASSIUM SERUM 4.5 mEq/L (3.5-5.1)
[2018-02-01 06:12] LABS: CREATININE - SERUM 6.5 mg/dL (0.7-1.3)
[2018-02-01] MEDS ORDERED: Dextrose 50% 50 mL Abboject IVP ONE ×2 (06:32→06:37)
[2018-02-01] MEDS: Lactobacillus Rhamnosus GG 15 Billion CFU CAP.SPRINK PO SCH (09:41)
[2018-02-01] MEDS: Vitamin B Complex w/Vitamin C Tab PO SCH (09:45)
--- NOTE | 2018-02-01 12:08 | General Progress Note ---
Subjective - Review of Systems Service Date: 02/01/18 Subjective: feels better today, denied any cough/congestion Objective - Results Result Diagrams: 02/01/18 05:22 02/01/18 05:22 Recent Labs: Laboratory Last Values WBC 10.1 Th/cmm (4.8-10.8) 02/01/18 05:22 RBC 3.42 Mil/cmm (3.80-5.80) L 02/01/18 05:22 Hgb 10.5 gm/dL (12-16) L 02/01/18 05:22 Hct 31.6 % (41.0-60) L 02/01/18 05:22 MCV 92.2 fl (80-99) 02/01/18 05:22 MCH 30.6 pg (27.0-31.0) 02/01/18 05:22 MCHC Differential 33.2 pg (28.0-36.0) 02/01/18 05:22 RDW 14.5 % (11.5-20.0) 02/01/18 05:22 Plt Count 412 Th/cmm (150-400) H 02/01/18 05:22 MPV 6.9 fl 02/01/18 05:22 Neutrophils % 70.2 % (40.0-80.0) 02/01/18 05:22 Lymphocytes % 16.1 % (20.0-50.0) L 02/01/18 05:22 Monocytes % 7.9 % (2.0-10.0) 02/01/18 05:22 Eosinophils % 4.6 % (0.0-5.0) 02/01/18 05:22 Basophils % 1.2 % (0.0-2.0) 02/01/18 05:22 ESR 87 mm/hr (0-20) H 01/31/18 04:15 PT 9.9 SECONDS (9.5-11.5) 01/29/18 16:42 INR 0.95 (0.5-1.4) 01/29/18 16:42 PTT (Actin FS) 29.9 SECONDS (26.0-38.0) 01/29/18 16:42 Sodium 134 mEq/L (136-145) L 02/01/18 05:22 Potassium 4.5 mEq/L (3.5-5.1) 02/01/18 05:22 Chloride 98 mEq/L (98-107) 02/01/18 05:22 Carbon Dioxide 25.4 mEq/L (21.0-31.0) 02/01/18 05:22 Anion Gap 15.1 (7.0-16.0) 02/01/18 05:22 BUN 41 mg/dL (7-25) H 02/01/18 05:22 Creatinine 6.5 mg/dL (0.7-1.3) H* 02/01/18 05:22 Est GFR ( Amer) 11.1 ml/min (>90) 02/01/18 05:22 Est GFR (Non-Af Amer) 9.2 ml/min 02/01/18 05:22 BUN/Creatinine Ratio 6.3 02/01/18 05:22 Glucose 56 mg/dL (70-105) L 02/01/18 05:22 POC Glucose 103 MG/DL (70 - 105) 02/01/18 07:42 Whole Bld Lactic Acid 0.55 mmol/L (0.60-1.99) L 01/29/18 16:42 Calcium 8.7 mg/dL (8.6-10.3) 02/01/18 05:22 Phosphorus 4.1 mg/dL (2.5-5.0) 01/31/18 04:15 Magnesium 2.0 mg/dL (1.9-2.7) 01/31/18 04:15 Total Bilirubin 0.4 mg/dL (0.3-1.0) 01/29/18 16:42 AST 13 U/L (13-39) 01/29/18 16:42 ALT 7 U/L (7-52) 01/29/18 16:42 Alkaline Phosphatase 67 U/L (34-104) 01/29/18 16:42 Creatine Kinase 12 U/L (30-223) L 01/29/18 16:42 Troponin I 0.02 ng/mL (0.01-0.05) 01/29/18 16:42 C-Reactive Protein 11.4 mg/dL (0.0-0.9) H 01/31/18 04:15 Total Protein 6.2 gm/dL (6.0-8.3) 01/29/18 16:42 Albumin 2.4 gm/dL (4.2-5.5) L 01/29/18 16:42 Globulin 3.8 gm/dL 01/29/18 16:42 Albumin/Globulin Ratio 0.6 (1.0-1.8) L 01/29/18 16:42 Triglycerides 72 mg/dL (<150) 01/31/18 04:15 Cholesterol 97 mg/dL (<200) 01/31/18 04:15 LDL Cholesterol Direct 45 mg/dL (75-193) L 01/31/18 04:15 HDL Cholesterol 36 mg/dL (23-92) 01/31/18 04:15 TSH 2.15 uIU/ml (0.34-5.60) 01/31/18 04:15 Urine Source MIDSTREAM 01/29/18 22:30 Urine Color YELLOW 01/29/18 22:30 Urine Clarity HAZY (CLEAR) 01/29/18 22:30 Urine pH 8.5 (4.6 - 8.0) 01/29/18 22:30 Ur Specific [place] 1.015 (1.005-1.030) 01/29/18 22:30 Urine Protein 100 mg/dL (NEGATIVE) H 01/29/18 22:30 Urine Glucose (UA) NEGATIVE mg/dL (NEGATIVE) 01/29/18 22:30 Urine Ketones NEGATIVE mg/dL (NEGATIVE) 01/29/18 22:30 Urine Blood MODERATE (NEGATIVE) H 01/29/18 22:30 Urine Nitrate NEGATIVE (NEGATIVE) 01/29/18 22:30 Urine Bilirubin NEGATIVE (NEGATIVE) 01/29/18 22:30 Urine Urobilinogen 0.2 E.U./dL (0.2 - 1.0) 01/29/18 22:30 Ur Leukocyte Esterase LARGE (NEGATIVE) H 01/29/18 22:30 Urine RBC 2-5 /hpf (0-5) H 01/29/18 22:30 Urine WBC >100 /hpf (0-5) H 01/29/18 22:30 Ur Epithelial Cells FEW /lpf (FEW) 01/29/18 22:30 Urine Bacteria MANY /hpf (NONE SEEN) H 01/29/18 22:30 Random Vancomycin 10.1 ug/mL (5.0-40.0) 01/31/18 04:15 - Physical Exam Vitals and I&O: Vital Signs Temp 96.9 F 02/01/18 04:00 Pulse 67 02/01/18 11:00 Resp 18 02/01/18 11:00 BP 156/78 02/01/18 09:44 Pulse Ox 96 02/01/18 11:00 Intake & Output 01/31/18 02/01/18 02/01/18 18:59 06:59 18:59 Intake Total 550 650 Output Total 750 Balance -200 650 Weight (lbs) 81.647 kg 81.647 kg Intake: Intake, IV Amount 550 cefTRIAXone 1 gm In 50 Sodium Chloride 0.9% 50 ml @ 100 mls/hr IV Q24HR [facility] Rx#:[id number] Oral 550 100 Output: Urine 750 Stool 0 Other: # Voids 1 # Bowel Movements 0 Weight Source Bedscale Bedscale Active Medications: Current Medications Acetaminophen (Tylenol) 650 mg PO Q6HR PRN PRN Reason: PAIN Stop: 03/30/18 23:07 Acetaminophen/Hydrocodone Bitart ([place] 5mg/325mg) 2 tab PO Q4H PRN PRN Reason: Pain (Moderate) Stop: 03/30/18 23:16 Last Admin: 01/29/18 23:29 Dose: 2 tab Acetylcysteine (Mucomyst 20%) 2 ml HHN Q4HRT [facility] Stop: 03/31/18 14:59 Last Admin: 02/01/18 07:22 Dose: Not Given Albuterol Sulfate (Albuterol 2.5mg/3ml Neb Ud) 2.5 mg HHN Q1H PRN PRN Reason: Respiratory Distress Stop: 03/31/18 07:59 Albuterol/Ipratropium (Duoneb Neb) 3 ml HHN Q4HRT [facility] Stop: 03/31/18 14:59 Last Admin: 02/01/18 11:00 Dose: 3 ml Atorvastatin Calcium (Lipitor) 40 mg PO HS [facility] Stop: 03/31/18 20:59 Last Admin: 01/31/18 20:34 Dose: 40 mg Cinacalcet (Sensipar) 30 mg PO DAILY [facility] Stop: 03/31/18 08:59 Last Admin: 02/01/18 09:38 Dose: Not Given Diclofenac Sodium (Voltaren) 50 mg PO BID [facility] Stop: 04/01/18 08:59 Last Admin: 02/01/18 09:39 Dose: Not Given Docusate Sodium (Colace) 100 mg PO DAILY [facility] Stop: 03/31/18 08:59 Last Admin: 02/01/18 09:39 Dose: Not Given Epoetin Vishal (Epogen) 10,000 units SUBQ MWF@1600 [facility] Stop: 04/01/18 15:59 Last Admin: 01/31/18 16:41 Dose: Not Given Furosemide (Lasix) 40 mg PO DAILY [facility] Stop: 03/31/18 08:59 Last Admin: 02/01/18 09:40 Dose: Not Given Ceftriaxone Sodium 1 gm/ (Sodium Chloride) 50 mls @ 100 mls/hr IV Q24HR [facility] Stop: 03/31/18 18:59 Last Infusion: 01/31/18 19:08 Dose: Infused Ipratropium [place] (Atrovent Neb 0.5mg/2.5ml) 0.5 mg HHN Q6HRT [facility] Stop: 03/31/18 12:59 Last Admin: 01/31/18 00:57 Dose: Not Given Lactobacillus Rhamnosus (Culturelle 15b) 1 each PO DAILY [facility] Stop: 03/30/18 23:14 Last Admin: 02/01/18 09:41 Dose: Not Given Megestrol Acetate (Megace) 400 mg PO DAILY [facility] PRN Reason: Protocol Stop: 03/31/18 08:59 Last Admin: 02/01/18 09:42 Dose: Not Given Metoprolol Tartrate (Lopressor) 50 mg PO BID [facility] Stop: 03/30/18 23:14 Last Admin: 02/01/18 09:44 Dose: Not Given Midodrine (Proamatine) 5 mg PO TID PRN PRN Reason: HYPOTENSION Stop: 03/30/18 23:07 Miscellaneous (Vancomycin Iv Per Pharmacy) 1 ea MC PRN [facility] Stop: 03/30/18 21:44 Morphine Sulfate (Morphine) 1 mg IVP Q4HR PRN PRN Reason: Pain (Severe) Stop: 03/30/18 23:17 Last Admin: 01/31/18 08:17 Dose: 1 mg Sevelamer Carbonate (Renvela) 800 mg PO TID [facility] Stop: 03/30/18 23:14 Last Admin: 02/01/18 09:45 Dose: Not Given Vitamin B Complex/Vit C/Folic Acid (Vitamin B Complex W/Vitamin C) 1 tab PO DAILY [facility] Stop: 03/31/18 08:59 Last Admin: 02/01/18 09:45 Dose: Not Given General: Alert, Oriented x3, Cooperative, No acute distress HEENT: Atraumatic, PERRLA, EOMI, Mucous membr. moist/pink Neck: Supple, +2 carotid pulse wo bruit Cardiovascular: Regular rate, Normal S1, Normal S2 Lungs: Other (decreased BS right lung field) Abdomen: Bowel sounds, Soft Extremities: no Edema Neurological: Sensation intact Skin: no Rash Psych/Mental Status: Mood NL Assessment/Plan - Problem List Patient Problems: All Active Problems RIGHT FACIAL SWELLING AND PAIN (Acute) - Assessment Assessment: ESRD on HD Right facial cellulitis Right lung opacification Cx UTI T2DM Anemia of CD - Plan Plan: Lab - Result Diagrams 01/31/18 04:15 01/31/18 04:15 Current Medications Acetaminophen (Tylenol) 650 mg PO Q6HR PRN PRN Reason: PAIN Stop: 03/30/18 23:07 Acetaminophen/Hydrocodone Bitart ([place] 5mg/325mg) 2 tab PO Q4H PRN PRN Reason: Pain (Moderate) Stop: 03/30/18 23:16 Last Admin: 01/29/18 23:29 Dose: 2 tab Acetylcysteine (Mucomyst 20%) 2 ml HHN Q4HRT [facility] Stop: 03/31/18 14:59 Last Admin: 01/31/18 11:27 Dose: 2 ml Albuterol Sulfate (Albuterol 2.5mg/3ml Neb Ud) 2.5 mg HHN Q1H PRN PRN Reason: Respiratory Distress Stop: 03/31/18 07:59 Albuterol/Ipratropium (Duoneb Neb) 3 ml HHN Q4HRT [facility] Stop: 03/31/18 14:59 Last Admin: 01/31/18 11:27 Dose: 3 ml Atorvastatin Calcium (Lipitor) 40 mg PO HS [facility] Stop: 03/31/18 20:59 Last Admin: 01/30/18 21:19 Dose: 40 mg Cinacalcet (Sensipar) 30 mg PO DAILY [facility] Stop: 03/31/18 08:59 Last Admin: 01/31/18 08:28 Dose: Not Given Diclofenac Sodium (Voltaren) 50 mg PO BID [facility] Stop: 04/01/18 08:59 Last Admin: 01/31/18 08:25 Dose: 50 mg Docusate Sodium (Colace) 100 mg PO DAILY [facility] Stop: 03/31/18 08:59 Last Admin: 01/31/18 08:26 Dose: 100 mg Epoetin Vishal (Epogen) 10,000 units SUBQ MWF@1600 [facility] Stop: 04/01/18 15:59 Furosemide (Lasix) 40 mg PO DAILY [facility] Stop: 03/31/18 08:59 Last Admin: 01/31/18 08:26 Dose: 40 mg Heparin Sodium (Porcine) (Heparin) 5,000 units IVP ONCE@2100 [facility] Stop: 01/31/18 21:01 Last Admin: 01/30/18 21:18 Dose: 5,000 units Ceftriaxone Sodium 1 gm/ (Sodium Chloride) 50 mls @ 100 mls/hr IV Q24HR [facility] Stop: 03/31/18 18:59 Last Infusion: 01/30/18 21:50 Dose: Infused Ipratropium [place] (Atrovent Neb 0.5mg/2.5ml) 0.5 mg HHN Q6HRT [facility] Stop: 03/31/18 12:59 Last Admin: 01/31/18 00:57 Dose: Not Given Lactobacillus Rhamnosus (Culturelle 15b) 1 each PO DAILY [facility] Stop: 03/30/18 23:14 Last Admin: 01/31/18 08:27 Dose: 1 each Megestrol Acetate (Megace) 400 mg PO DAILY [facility] PRN Reason: Protocol Stop: 03/31/18 08:59 Last Admin: 01/31/18 09:31 Dose: Not Given Metoprolol Tartrate (Lopressor) 50 mg PO BID [facility] Stop: 03/30/18 23:14 Last Admin: 01/31/18 08:27 Dose: 50 mg Midodrine (Proamatine) 5 mg PO TID PRN PRN Reason: HYPOTENSION Stop: 03/30/18 23:07 Miscellaneous (Vancomycin Iv Per Pharmacy) 1 ea MC PRN [facility] Stop: 03/30/18 21:44 Morphine Sulfate (Morphine) 1 mg IVP Q4HR PRN PRN Reason: Pain (Severe) Stop: 03/30/18 23:17 Last Admin: 01/31/18 08:17 Dose: 1 mg Sevelamer Carbonate (Renvela) 800 mg PO TID [facility] Stop: 03/30/18 23:14 Last Admin: 01/31/18 08:28 Dose: 800 mg Vitamin B Complex/Vit C/Folic Acid (Vitamin B Complex W/Vitamin C) 1 tab PO DAILY [facility] Stop: 03/31/18 08:59 Last Admin: 01/31/18 08:28 Dose: 1 t Lab - Result Diagrams 02/01/18 05:22 02/01/18 05:22 schedule for HD today less right facial discomfort CT scan chest revealed large right effusion 2/2 compatible ATx & collapse right lung ? PNA continue Rocephin WBC @ 10.1 agree w/ diagnostic/therapeutic thoracentesis
--- NOTE | 2018-02-01 12:28 | Diagnostic Imaging Report ---
Portable chest x-ray HISTORY: Shortness of breath, status post thoracentesis Compared with the prior exam of January 31, 2018, there remains complete opacification of the right hemithorax. Findings consistent with a persistent large right pleural effusion. No pneumothorax. IMPRESSION: 1. Persistent opacification of the right hemithorax consistent with a large residual pleural effusion.
--- NOTE | 2018-02-01 12:35 | Diagnostic Imaging Report ---
Thoracentesis (ultrasound-guided, right side) HISTORY: Pleural effusion Using ultrasound guidance and sterile technique, 1000 cc of yellow tinted pleural fluid was aspirated from the right hemithorax. The patient tolerated the procedure with no immediate apparent clinical complications. IMPRESSION: Thoracentesis as noted above
[2018-02-01 16:16] LABS: BF APPEARANCE HAZY; BF COLOR PALE YELLOW; BODY FLUID SOURCE PLEURAL
[2018-02-01 16:17] LABS: BF MONOCYTES 48 %; BF RBC 185 /cumm; BF WBC 149 /cumm
[2018-02-01 18:22] LABS: A1C % 3.5 % (4.0-6.0)
[2018-02-01] MEDS: cefTRIAXone 1 GM in Sodium Chloride 0.9% 50 ML IV SCH (20:05)
[2018-02-02] MEDS: Albuterol/Ipratropium Neb 3 ML AERS HHN SCH ×6 (02:35→22:53)
[2018-02-02] MEDS: Ipratropium Neb 0.5 mg/2.5 mL UD HHN SCH ×2 (06:43→12:45)
[2018-02-02 07:01] LABS: % EOSINOPHILS 5.5 % (0.0-5.0); % LYMPHOCYTES 19.6 % (20.0-50.0); % MONOCYTES 9.6 % (2.0-10.0); % NEUTROPHILS 64.3 % (40.0-80.0); BASOPHILE ABSOLUTE 0.1 Th/cumm (0-0.2); EOSINOPHILE ABSOLUTE 0.4 Th/cmm (0.1-0.4); HEMATOCRIT 31.5 % (41.0-60); HEMOGLOBIN 10.5 gm/dL (12-16); LYMPHOCYTE ABSOLUTE 1.5 Th/cmm (1.5-3.0); MEAN CELL VOLUME 92.5 fl (80-99); MEAN CORPUSCULAR HGB CONC 33.5 pg (28.0-36.0); MONOCYTE ABSOLUTE 0.7 Th/cmm (0.3-1.0); NEUTROPHILE ABSOLUTE 4.9 Th/cmm (1.8-8.0); PLATELET COUNT 362 Th/cmm (150-400); RED CELL DISTRIBUTION WIDTH 14.4 % (11.5-20.0); WHITE BLOOD COUNT 7.6 Th/cmm (4.8-10.8)
[2018-02-02 07:21] LABS: ANION GAP 8.8 (7.0-16.0); CALCIUM SERUM 8.5 mg/dL (8.6-10.3); CARBON DIOXIDE 30.8 mEq/L (21.0-31.0); GFR NON AFRICAN-AMERICAN 14.1 ml/min; POTASSIUM SERUM 3.6 mEq/L (3.5-5.1)
[2018-02-02 07:26] LABS: CREATININE - SERUM 4.5 mg/dL (0.7-1.3)
--- NOTE | 2018-02-02 07:35 | Diagnostic Imaging Report ---
CHEST X-RAY: AP view INDICATION: Shortness of breath COMPARISON: Chest x-ray 02/01/2018 FINDINGS: There is persistent complete opacification of the right hemithorax. Right dialysis catheter is stable. IMPRESSION: No significant change in pulmonary status.
[2018-02-02] MEDS: Vitamin B Complex w/Vitamin C Tab PO SCH (09:51)
[2018-02-02] MEDS: Lactobacillus Rhamnosus GG 15 Billion CFU CAP.SPRINK PO SCH (09:52)
[2018-02-02] MEDS ORDERED: Probiotic Screen MC PRN (13:09)
--- NOTE | 2018-02-02 14:22 | Pathology Report ---
[id number] Collection Date: 02/01/2018 Surgeon: Dr. Malka Torres Specimen Description: Thoracentesis fluid for cytology Gross Description: Received in a large glass bottle is approximately 1000 mL of dark red/brownish fluid. A financial representative portion is submitted for cytology processing. Microscopic Description: Examination of cell block and two cytospins shows scanty cellularity consisting of mostly degenerated fibrinous material and red blood cells, with only small numbers of lymphocytes and mesothelial cells appreciated. There is no evidence for atypia. Diagnosis: No cytologic evidence for malignancy (right pleural fluid cytology). [facility]# [id number]
--- NOTE | 2018-02-02 14:26 | General Progress Note ---
Subjective - Review of Systems Service Date: 02/02/18 Subjective: feels better today, denied any cough/congestion, eager to go home Objective - Results Result Diagrams: 02/02/18 05:30 02/02/18 05:30 Recent Labs: Laboratory Last Values WBC 7.6 Th/cmm (4.8-10.8) 02/02/18 05:30 RBC 3.40 Mil/cmm (3.80-5.80) L 02/02/18 05:30 Hgb 10.5 gm/dL (12-16) L 02/02/18 05:30 Hct 31.5 % (41.0-60) L 02/02/18 05:30 MCV 92.5 fl (80-99) 02/02/18 05:30 MCH 31.0 pg (27.0-31.0) 02/02/18 05:30 MCHC Differential 33.5 pg (28.0-36.0) 02/02/18 05:30 RDW 14.4 % (11.5-20.0) 02/02/18 05:30 Plt Count 362 Th/cmm (150-400) 02/02/18 05:30 MPV 7.0 fl 02/02/18 05:30 Neutrophils % 64.3 % (40.0-80.0) 02/02/18 05:30 Lymphocytes % 19.6 % (20.0-50.0) L 02/02/18 05:30 Monocytes % 9.6 % (2.0-10.0) 02/02/18 05:30 Eosinophils % 5.5 % (0.0-5.0) H 02/02/18 05:30 Basophils % 1.0 % (0.0-2.0) 02/02/18 05:30 ESR 87 mm/hr (0-20) H 01/31/18 04:15 PT 9.9 SECONDS (9.5-11.5) 01/29/18 16:42 INR 0.95 (0.5-1.4) 01/29/18 16:42 PTT (Actin FS) 29.9 SECONDS (26.0-38.0) 01/29/18 16:42 Sodium 137 mEq/L (136-145) 02/02/18 05:30 Potassium 3.6 mEq/L (3.5-5.1) 02/02/18 05:30 Chloride 101 mEq/L (98-107) 02/02/18 05:30 Carbon Dioxide 30.8 mEq/L (21.0-31.0) 02/02/18 05:30 Anion Gap 8.8 (7.0-16.0) 02/02/18 05:30 BUN 22 mg/dL (7-25) 02/02/18 05:30 Creatinine 4.5 mg/dL (0.7-1.3) H* 02/02/18 05:30 Est GFR ( Amer) 17.0 ml/min (>90) 02/02/18 05:30 Est GFR (Non-Af Amer) 14.1 ml/min 02/02/18 05:30 BUN/Creatinine Ratio 4.9 02/02/18 05:30 Glucose 78 mg/dL (70-105) 02/02/18 05:30 POC Glucose 103 MG/DL (70 - 105) 02/01/18 07:42 Hemoglobin A1c % 3.5 % (4.0-6.0) L 01/31/18 04:15 Whole Bld Lactic Acid 0.55 mmol/L (0.60-1.99) L 01/29/18 16:42 Calcium 8.5 mg/dL (8.6-10.3) L 02/02/18 05:30 Phosphorus 4.1 mg/dL (2.5-5.0) 01/31/18 04:15 Magnesium 2.0 mg/dL (1.9-2.7) 01/31/18 04:15 Total Bilirubin 0.4 mg/dL (0.3-1.0) 01/29/18 16:42 AST 13 U/L (13-39) 01/29/18 16:42 ALT 7 U/L (7-52) 01/29/18 16:42 Alkaline Phosphatase 67 U/L (34-104) 01/29/18 16:42 Creatine Kinase 12 U/L (30-223) L 01/29/18 16:42 Troponin I 0.02 ng/mL (0.01-0.05) 01/29/18 16:42 C-Reactive Protein 11.4 mg/dL (0.0-0.9) H 01/31/18 04:15 Total Protein 6.2 gm/dL (6.0-8.3) 01/29/18 16:42 Albumin 2.4 gm/dL (4.2-5.5) L 01/29/18 16:42 Globulin 3.8 gm/dL 01/29/18 16:42 Albumin/Globulin Ratio 0.6 (1.0-1.8) L 01/29/18 16:42 Triglycerides 72 mg/dL (<150) 01/31/18 04:15 Cholesterol 97 mg/dL (<200) 01/31/18 04:15 LDL Cholesterol Direct 45 mg/dL (75-193) L 01/31/18 04:15 HDL Cholesterol 36 mg/dL (23-92) 01/31/18 04:15 TSH 2.15 uIU/ml (0.34-5.60) 01/31/18 04:15 PTH Intact 36 pg/mL (15-65) 02/01/18 05:22 Urine Source MIDSTREAM 01/29/18 22:30 Urine Color YELLOW 01/29/18 22:30 Urine Clarity HAZY (CLEAR) 01/29/18 22:30 Urine pH 8.5 (4.6 - 8.0) 01/29/18 22:30 Ur Specific [place] 1.015 (1.005-1.030) 01/29/18 22:30 Urine Protein 100 mg/dL (NEGATIVE) H 01/29/18 22:30 Urine Glucose (UA) NEGATIVE mg/dL (NEGATIVE) 01/29/18 22:30 Urine Ketones NEGATIVE mg/dL (NEGATIVE) 01/29/18 22:30 Urine Blood MODERATE (NEGATIVE) H 01/29/18 22:30 Urine Nitrate NEGATIVE (NEGATIVE) 01/29/18 22:30 Urine Bilirubin NEGATIVE (NEGATIVE) 01/29/18 22:30 Urine Urobilinogen 0.2 E.U./dL (0.2 - 1.0) 01/29/18 22:30 Ur Leukocyte Esterase LARGE (NEGATIVE) H 01/29/18 22:30 Urine RBC 2-5 /hpf (0-5) H 01/29/18 22:30 Urine WBC >100 /hpf (0-5) H 01/29/18 22:30 Ur Epithelial Cells FEW /lpf (FEW) 01/29/18 22:30 Urine Bacteria MANY /hpf (NONE SEEN) H 01/29/18 22:30 Fluid Source PLEURAL 02/01/18 11:00 Fluid Color PALE YELLOW 02/01/18 11:00 Fluid Appearance HAZY 02/01/18 11:00 Fluid WBC 149 /cumm 02/01/18 11:00 Fluid RBC 185 /cumm 02/01/18 11:00 Fluid Neutrophils 2 % 02/01/18 11:00 Fluid Lymphocytes 50 % 02/01/18 11:00 Fluid Monocytes 48 % 02/01/18 11:00 Fluid Glucose 75.0 mg/dL 02/01/18 11:00 Fluid Total Protein 2.3 g/dL 02/01/18 11:00 Fluid Amylase 61 U/L 02/01/18 11:00 Random Vancomycin 18.0 ug/mL (5.0-40.0) 02/02/18 05:30 - Physical Exam Vitals and I&O: Vital Signs Temp 96.7 F 02/02/18 07:38 Pulse 76 02/02/18 10:28 Resp 20 02/02/18 10:28 BP 150/70 02/02/18 09:52 Pulse Ox 97 02/02/18 10:28 Intake & Output 02/01/18 02/02/18 02/02/18 18:59 06:59 18:59 Intake Total 400 100 Output Total 3400 Balance -3000 100 Weight (lbs) 81.647 kg 79.379 kg 79.379 kg Intake: Oral 400 100 Output: Stool 0 Hemodialysis 2400 Other 1000 Other: Weight Source Bedscale Bedscale Bedscale Active Medications: Current Medications Acetaminophen (Tylenol) 650 mg PO Q6HR PRN PRN Reason: PAIN Stop: 03/30/18 23:07 Acetaminophen/Hydrocodone Bitart ([place] 5mg/325mg) 2 tab PO Q4H PRN PRN Reason: Pain (Moderate) Stop: 03/30/18 23:16 Last Admin: 01/29/18 23:29 Dose: 2 tab Acetylcysteine (Mucomyst 20%) 2 ml HHN Q4HRT [facility] Stop: 03/31/18 14:59 Last Admin: 02/02/18 06:44 Dose: Not Given Albuterol Sulfate (Albuterol 2.5mg/3ml Neb Ud) 2.5 mg HHN Q1H PRN PRN Reason: Respiratory Distress Stop: 03/31/18 07:59 Last Admin: 02/01/18 15:33 Dose: 2.5 mg Albuterol/Ipratropium (Duoneb Neb) 3 ml HHN Q4HRT [facility] Stop: 03/31/18 14:59 Last Admin: 02/02/18 10:27 Dose: 3 ml Atorvastatin Calcium (Lipitor) 40 mg PO HS [facility] Stop: 03/31/18 20:59 Last Admin: 02/01/18 20:05 Dose: 40 mg Cinacalcet (Sensipar) 30 mg PO DAILY [facility] Stop: 03/31/18 08:59 Last Admin: 02/01/18 09:38 Dose: Not Given Diclofenac Sodium (Voltaren) 50 mg PO BID [facility] Stop: 04/01/18 08:59 Last Admin: 02/02/18 09:51 Dose: 50 mg Docusate Sodium (Colace) 100 mg PO DAILY [facility] Stop: 03/31/18 08:59 Last Admin: 02/02/18 09:52 Dose: 100 mg Epoetin Vishal (Epogen) 10,000 units SUBQ MWF@1600 [facility] Stop: 04/01/18 15:59 Last Admin: 01/31/18 16:41 Dose: Not Given Furosemide (Lasix) 40 mg PO DAILY [facility] Stop: 03/31/18 08:59 Last Admin: 02/02/18 09:52 Dose: 40 mg Ceftriaxone Sodium 1 gm/ (Sodium Chloride) 50 mls @ 100 mls/hr IV Q24HR [facility] Stop: 03/31/18 18:59 Last Admin: 02/01/18 20:05 Dose: 100 mls/hr Vancomycin HCl 1 gm/ Sodium (Chloride) 250 mls @ 165 mls/hr IV ONCE ONE Stop: 02/02/18 16:30 Ipratropium [place] (Atrovent Neb 0.5mg/2.5ml) 0.5 mg HHN Q6HRT [facility] Stop: 03/31/18 12:59 Last Admin: 02/02/18 12:45 Dose: Not Given Lactobacillus Rhamnosus (Culturelle 15b) 1 each PO DAILY [facility] Stop: 03/30/18 23:14 Last Admin: 02/02/18 09:52 Dose: 1 each Megestrol Acetate (Megace) 400 mg PO DAILY [facility] PRN Reason: Protocol Stop: 03/31/18 08:59 Metoprolol Tartrate (Lopressor) 50 mg PO BID [facility] Stop: 03/30/18 23:14 Last Admin: 02/02/18 09:51 Dose: 50 mg Midodrine (Proamatine) 5 mg PO TID PRN PRN Reason: HYPOTENSION Stop: 03/30/18 23:07 Miscellaneous (Vancomycin Iv Per Pharmacy) 1 ea MC PRN [facility] Stop: 03/30/18 21:44 Miscellaneous (Probiotic Screen) 1 ea MC PRN PRN PRN Reason: PROTOCOL Stop: 04/03/18 13:08 Morphine Sulfate (Morphine) 1 mg IVP Q4HR PRN PRN Reason: Pain (Severe) Stop: 03/30/18 23:17 Last Admin: 01/31/18 08:17 Dose: 1 mg Sevelamer Carbonate (Renvela) 800 mg PO TID [facility] Stop: 03/30/18 23:14 Last Admin: 02/02/18 14:19 Dose: 800 mg Vitamin B Complex/Vit C/Folic Acid (Vitamin B Complex W/Vitamin C) 1 tab PO DAILY [facility] Stop: 03/31/18 08:59 Last Admin: 02/02/18 09:51 Dose: 1 tab General: Alert, Oriented x3, Cooperative, No acute distress HEENT: Atraumatic, PERRLA, EOMI, Mucous membr. moist/pink Neck: Supple, +2 carotid pulse wo bruit Cardiovascular: Regular rate, Normal S1, Normal S2 Lungs: Other (decreased BS right lung field) Abdomen: Bowel sounds, Soft Extremities: no Edema Neurological: Sensation intact Skin: no Rash Psych/Mental Status: Mood NL Assessment/Plan - Problem List Patient Problems: All Active Problems RIGHT FACIAL SWELLING AND PAIN (Acute) - Assessment Assessment: ESRD on HD Right facial cellulitis Right lung opacification 2/2 effusion Cx UTI T2DM Anemia of CD - Plan Plan: Lab - Result Diagrams 01/31/18 04:15 01/31/18 04:15 Current Medications Acetaminophen (Tylenol) 650 mg PO Q6HR PRN PRN Reason: PAIN Stop: 03/30/18 23:07 Acetaminophen/Hydrocodone Bitart ([place] 5mg/325mg) 2 tab PO Q4H PRN PRN Reason: Pain (Moderate) Stop: 03/30/18 23:16 Last Admin: 01/29/18 23:29 Dose: 2 tab Acetylcysteine (Mucomyst 20%) 2 ml HHN Q4HRT [facility] Stop: 03/31/18 14:59 Last Admin: 01/31/18 11:27 Dose: 2 ml Albuterol Sulfate (Albuterol 2.5mg/3ml Neb Ud) 2.5 mg HHN Q1H PRN PRN Reason: Respiratory Distress Stop: 03/31/18 07:59 Albuterol/Ipratropium (Duoneb Neb) 3 ml HHN Q4HRT [facility] Stop: 03/31/18 14:59 Last Admin: 01/31/18 11:27 Dose: 3 ml Atorvastatin Calcium (Lipitor) 40 mg PO HS [facility] Stop: 03/31/18 20:59 Last Admin: 01/30/18 21:19 Dose: 40 mg Cinacalcet (Sensipar) 30 mg PO DAILY [facility] Stop: 03/31/18 08:59 Last Admin: 01/31/18 08:28 Dose: Not Given Diclofenac Sodium (Voltaren) 50 mg PO BID [facility] Stop: 04/01/18 08:59 Last Admin: 01/31/18 08:25 Dose: 50 mg Docusate Sodium (Colace) 100 mg PO DAILY [facility] Stop: 03/31/18 08:59 Last Admin: 01/31/18 08:26 Dose: 100 mg Epoetin Vishal (Epogen) 10,000 units SUBQ MWF@1600 [facility] Stop: 04/01/18 15:59 Furosemide (Lasix) 40 mg PO DAILY [facility] Stop: 03/31/18 08:59 Last Admin: 01/31/18 08:26 Dose: 40 mg Heparin Sodium (Porcine) (Heparin) 5,000 units IVP ONCE@2100 [facility] Stop: 01/31/18 21:01 Last Admin: 01/30/18 21:18 Dose: 5,000 units Ceftriaxone Sodium 1 gm/ (Sodium Chloride) 50 mls @ 100 mls/hr IV Q24HR [facility] Stop: 03/31/18 18:59 Last Infusion: 01/30/18 21:50 Dose: Infused Ipratropium [place] (Atrovent Neb 0.5mg/2.5ml) 0.5 mg HHN Q6HRT [facility] Stop: 03/31/18 12:59 Last Admin: 01/31/18 00:57 Dose: Not Given Lactobacillus Rhamnosus (Culturelle 15b) 1 each PO DAILY [facility] Stop: 03/30/18 23:14 Last Admin: 01/31/18 08:27 Dose: 1 each Megestrol Acetate (Megace) 400 mg PO DAILY [facility] PRN Reason: Protocol Stop: 03/31/18 08:59 Last Admin: 01/31/18 09:31 Dose: Not Given Metoprolol Tartrate (Lopressor) 50 mg PO BID [facility] Stop: 03/30/18 23:14 Last Admin: 01/31/18 08:27 Dose: 50 mg Midodrine (Proamatine) 5 mg PO TID PRN PRN Reason: HYPOTENSION Stop: 03/30/18 23:07 Miscellaneous (Vancomycin Iv Per Pharmacy) 1 ea MC PRN [facility] Stop: 03/30/18 21:44 Morphine Sulfate (Morphine) 1 mg IVP Q4HR PRN PRN Reason: Pain (Severe) Stop: 03/30/18 23:17 Last Admin: 01/31/18 08:17 Dose: 1 mg Sevelamer Carbonate (Renvela) 800 mg PO TID [facility] Stop: 03/30/18 23:14 Last Admin: 01/31/18 08:28 Dose: 800 mg Vitamin B Complex/Vit C/Folic Acid (Vitamin B Complex W/Vitamin C) 1 tab PO DAILY [facility] Stop: 03/31/18 08:59 Last Admin: 01/31/18 08:28 Dose: 1 t Lab - Result Diagrams 02/02/18 05:30 02/02/18 05:30 schedule for HD tomorrow less right facial discomfort CT scan chest revealed large right effusion 2/2 compatible ATx & collapse right lung ? PNA continue Rocephin WBC @ 7.6 agree w/ diagnostic/therapeutic thoracentesis
[2018-02-02] MEDS ORDERED: Albuterol/Ipratropium Neb 3 ML AERS HHN ONE (14:52)
--- NOTE | 2018-02-02 14:57 | General Progress Note ---
Subjective - Review of Systems Service Date: 02/02/18 Events since last encounter: discussed informed consent with patient and niece who is an RN Objective - Results Result Diagrams: 02/02/18 05:30 02/02/18 05:30 Recent Labs: Laboratory Last Values WBC 7.6 Th/cmm (4.8-10.8) 02/02/18 05:30 RBC 3.40 Mil/cmm (3.80-5.80) L 02/02/18 05:30 Hgb 10.5 gm/dL (12-16) L 02/02/18 05:30 Hct 31.5 % (41.0-60) L 02/02/18 05:30 MCV 92.5 fl (80-99) 02/02/18 05:30 MCH 31.0 pg (27.0-31.0) 02/02/18 05:30 MCHC Differential 33.5 pg (28.0-36.0) 02/02/18 05:30 RDW 14.4 % (11.5-20.0) 02/02/18 05:30 Plt Count 362 Th/cmm (150-400) 02/02/18 05:30 MPV 7.0 fl 02/02/18 05:30 Neutrophils % 64.3 % (40.0-80.0) 02/02/18 05:30 Lymphocytes % 19.6 % (20.0-50.0) L 02/02/18 05:30 Monocytes % 9.6 % (2.0-10.0) 02/02/18 05:30 Eosinophils % 5.5 % (0.0-5.0) H 02/02/18 05:30 Basophils % 1.0 % (0.0-2.0) 02/02/18 05:30 ESR 87 mm/hr (0-20) H 01/31/18 04:15 PT 9.9 SECONDS (9.5-11.5) 01/29/18 16:42 INR 0.95 (0.5-1.4) 01/29/18 16:42 PTT (Actin FS) 29.9 SECONDS (26.0-38.0) 01/29/18 16:42 Sodium 137 mEq/L (136-145) 02/02/18 05:30 Potassium 3.6 mEq/L (3.5-5.1) 02/02/18 05:30 Chloride 101 mEq/L (98-107) 02/02/18 05:30 Carbon Dioxide 30.8 mEq/L (21.0-31.0) 02/02/18 05:30 Anion Gap 8.8 (7.0-16.0) 02/02/18 05:30 BUN 22 mg/dL (7-25) 02/02/18 05:30 Creatinine 4.5 mg/dL (0.7-1.3) H* 02/02/18 05:30 Est GFR ( Amer) 17.0 ml/min (>90) 02/02/18 05:30 Est GFR (Non-Af Amer) 14.1 ml/min 02/02/18 05:30 BUN/Creatinine Ratio 4.9 02/02/18 05:30 Glucose 78 mg/dL (70-105) 02/02/18 05:30 POC Glucose 103 MG/DL (70 - 105) 02/01/18 07:42 Hemoglobin A1c % 3.5 % (4.0-6.0) L 01/31/18 04:15 Whole Bld Lactic Acid 0.55 mmol/L (0.60-1.99) L 01/29/18 16:42 Calcium 8.5 mg/dL (8.6-10.3) L 02/02/18 05:30 Phosphorus 4.1 mg/dL (2.5-5.0) 01/31/18 04:15 Magnesium 2.0 mg/dL (1.9-2.7) 01/31/18 04:15 Total Bilirubin 0.4 mg/dL (0.3-1.0) 01/29/18 16:42 AST 13 U/L (13-39) 01/29/18 16:42 ALT 7 U/L (7-52) 01/29/18 16:42 Alkaline Phosphatase 67 U/L (34-104) 01/29/18 16:42 Creatine Kinase 12 U/L (30-223) L 01/29/18 16:42 Troponin I 0.02 ng/mL (0.01-0.05) 01/29/18 16:42 C-Reactive Protein 11.4 mg/dL (0.0-0.9) H 01/31/18 04:15 Total Protein 6.2 gm/dL (6.0-8.3) 01/29/18 16:42 Albumin 2.4 gm/dL (4.2-5.5) L 01/29/18 16:42 Globulin 3.8 gm/dL 01/29/18 16:42 Albumin/Globulin Ratio 0.6 (1.0-1.8) L 01/29/18 16:42 Triglycerides 72 mg/dL (<150) 01/31/18 04:15 Cholesterol 97 mg/dL (<200) 01/31/18 04:15 LDL Cholesterol Direct 45 mg/dL (75-193) L 01/31/18 04:15 HDL Cholesterol 36 mg/dL (23-92) 01/31/18 04:15 TSH 2.15 uIU/ml (0.34-5.60) 01/31/18 04:15 PTH Intact 36 pg/mL (15-65) 02/01/18 05:22 Urine Source MIDSTREAM 01/29/18 22:30 Urine Color YELLOW 01/29/18 22:30 Urine Clarity HAZY (CLEAR) 01/29/18 22:30 Urine pH 8.5 (4.6 - 8.0) 01/29/18 22:30 Ur Specific [place] 1.015 (1.005-1.030) 01/29/18 22:30 Urine Protein 100 mg/dL (NEGATIVE) H 01/29/18 22:30 Urine Glucose (UA) NEGATIVE mg/dL (NEGATIVE) 01/29/18 22:30 Urine Ketones NEGATIVE mg/dL (NEGATIVE) 01/29/18 22:30 Urine Blood MODERATE (NEGATIVE) H 01/29/18 22:30 Urine Nitrate NEGATIVE (NEGATIVE) 01/29/18 22:30 Urine Bilirubin NEGATIVE (NEGATIVE) 01/29/18 22:30 Urine Urobilinogen 0.2 E.U./dL (0.2 - 1.0) 01/29/18 22:30 Ur Leukocyte Esterase LARGE (NEGATIVE) H 01/29/18 22:30 Urine RBC 2-5 /hpf (0-5) H 01/29/18 22:30 Urine WBC >100 /hpf (0-5) H 01/29/18 22:30 Ur Epithelial Cells FEW /lpf (FEW) 01/29/18 22:30 Urine Bacteria MANY /hpf (NONE SEEN) H 01/29/18 22:30 Fluid Source PLEURAL 02/01/18 11:00 Fluid Color PALE YELLOW 02/01/18 11:00 Fluid Appearance HAZY 02/01/18 11:00 Fluid WBC 149 /cumm 02/01/18 11:00 Fluid RBC 185 /cumm 02/01/18 11:00 Fluid Neutrophils 2 % 02/01/18 11:00 Fluid Lymphocytes 50 % 02/01/18 11:00 Fluid Monocytes 48 % 02/01/18 11:00 Fluid Glucose 75.0 mg/dL 02/01/18 11:00 Fluid Total Protein 2.3 g/dL 02/01/18 11:00 Fluid Amylase 61 U/L 02/01/18 11:00 Random Vancomycin 18.0 ug/mL (5.0-40.0) 02/02/18 05:30 - Physical Exam Vitals and I&O: Vital Signs Temp 96.7 F 02/02/18 07:38 Pulse 71 02/02/18 14:52 Resp 20 02/02/18 14:52 BP 150/70 02/02/18 09:52 Pulse Ox 97 02/02/18 14:52 Intake & Output 02/01/18 02/02/18 02/02/18 18:59 06:59 18:59 Intake Total 400 100 Output Total 3400 Balance -3000 100 Weight (lbs) 81.647 kg 79.379 kg 79.379 kg Intake: Oral 400 100 Output: Stool 0 Hemodialysis 2400 Other 1000 Other: Weight Source Bedscale Bedscale Bedscale Active Medications: Current Medications Acetaminophen (Tylenol) 650 mg PO Q6HR PRN PRN Reason: PAIN Stop: 03/30/18 23:07 Acetaminophen/Hydrocodone Bitart ([place] 5mg/325mg) 2 tab PO Q4H PRN PRN Reason: Pain (Moderate) Stop: 03/30/18 23:16 Last Admin: 01/29/18 23:29 Dose: 2 tab Acetylcysteine (Mucomyst 20%) 2 ml HHN Q4HRT [facility] Stop: 03/31/18 14:59 Last Admin: 02/02/18 06:44 Dose: Not Given Albuterol Sulfate (Albuterol 2.5mg/3ml Neb Ud) 2.5 mg HHN Q1H PRN PRN Reason: Respiratory Distress Stop: 03/31/18 07:59 Last Admin: 02/01/18 15:33 Dose: 2.5 mg Albuterol/Ipratropium (Duoneb Neb) 3 ml HHN Q4HRT [facility] Stop: 03/31/18 14:59 Last Admin: 02/02/18 14:51 Dose: 3 ml Atorvastatin Calcium (Lipitor) 40 mg PO HS [facility] Stop: 03/31/18 20:59 Last Admin: 02/01/18 20:05 Dose: 40 mg Cinacalcet (Sensipar) 30 mg PO DAILY [facility] Stop: 03/31/18 08:59 Last Admin: 02/01/18 09:38 Dose: Not Given Diclofenac Sodium (Voltaren) 50 mg PO BID [facility] Stop: 04/01/18 08:59 Last Admin: 02/02/18 09:51 Dose: 50 mg Docusate Sodium (Colace) 100 mg PO DAILY [facility] Stop: 03/31/18 08:59 Last Admin: 02/02/18 09:52 Dose: 100 mg Epoetin Vishal (Epogen) 10,000 units SUBQ MWF@1600 [facility] Stop: 04/01/18 15:59 Last Admin: 01/31/18 16:41 Dose: Not Given Furosemide (Lasix) 40 mg PO DAILY [facility] Stop: 03/31/18 08:59 Last Admin: 02/02/18 09:52 Dose: 40 mg Ceftriaxone Sodium 1 gm/ (Sodium Chloride) 50 mls @ 100 mls/hr IV Q24HR [facility] Stop: 03/31/18 18:59 Last Admin: 02/01/18 20:05 Dose: 100 mls/hr Vancomycin HCl 1 gm/ Sodium (Chloride) 250 mls @ 165 mls/hr IV ONCE ONE Stop: 02/02/18 16:30 Ipratropium [place] (Atrovent Neb 0.5mg/2.5ml) 0.5 mg HHN Q6HRT [facility] Stop: 03/31/18 12:59 Last Admin: 02/02/18 12:45 Dose: Not Given Lactobacillus Rhamnosus (Culturelle 15b) 1 each PO DAILY [facility] Stop: 03/30/18 23:14 Last Admin: 02/02/18 09:52 Dose: 1 each Megestrol Acetate (Megace) 400 mg PO DAILY [facility] PRN Reason: Protocol Stop: 03/31/18 08:59 Metoprolol Tartrate (Lopressor) 50 mg PO BID [facility] Stop: 03/30/18 23:14 Last Admin: 02/02/18 09:51 Dose: 50 mg Midodrine (Proamatine) 5 mg PO TID PRN PRN Reason: HYPOTENSION Stop: 03/30/18 23:07 Miscellaneous (Vancomycin Iv Per Pharmacy) 1 ea MC PRN [facility] Stop: 03/30/18 21:44 Miscellaneous (Probiotic Screen) 1 ea MC PRN PRN PRN Reason: PROTOCOL Stop: 04/03/18 13:08 Morphine Sulfate (Morphine) 1 mg IVP Q4HR PRN PRN Reason: Pain (Severe) Stop: 03/30/18 23:17 Last Admin: 01/31/18 08:17 Dose: 1 mg Sevelamer Carbonate (Renvela) 800 mg PO TID [facility] Stop: 03/30/18 23:14 Last Admin: 02/02/18 14:19 Dose: 800 mg Vitamin B Complex/Vit C/Folic Acid (Vitamin B Complex W/Vitamin C) 1 tab PO DAILY [facility] Stop: 03/31/18 08:59 Last Admin: 02/02/18 09:51 Dose: 1 tab General: Alert, Oriented x3, Cooperative, No acute distress HEENT: Atraumatic, PERRLA, EOMI, Mucous membr. moist/pink Neck: Supple, +2 carotid pulse wo bruit Cardiovascular: Regular rate, Normal S1, Normal S2 Lungs: Other (decreased BS right lung field) Abdomen: Bowel sounds, Soft Extremities: no Edema Neurological: Sensation intact Skin: no Rash Psych/Mental Status: Mood NL Assessment/Plan - Problem List Patient Problems: All Active Problems RIGHT FACIAL SWELLING AND PAIN (Acute)
[2018-02-02] MEDS: Epoetin Alfa 20000 Units/mL Vial SUBQ SCH (17:09)
[2018-02-02] MEDS: cefTRIAXone 1 GM in Sodium Chloride 0.9% 50 ML IV SCH (21:29)
[2018-02-03] MEDS: Albuterol/Ipratropium Neb 3 ML AERS HHN SCH ×6 (03:15→22:08)
[2018-02-03] MEDS: Lactobacillus Rhamnosus GG 15 Billion CFU CAP.SPRINK PO SCH (09:28)
[2018-02-03] MEDS: Vitamin B Complex w/Vitamin C Tab PO SCH (09:28)
--- NOTE | 2018-02-03 10:42 | General Progress Note ---
Subjective - Review of Systems Service Date: 02/03/18 Events since last encounter: scheduled for PleurX tube placement on 02/05/18 Objective - Results Result Diagrams: 02/02/18 05:30 02/02/18 05:30 Recent Labs: Laboratory Last Values WBC 7.6 Th/cmm (4.8-10.8) 02/02/18 05:30 RBC 3.40 Mil/cmm (3.80-5.80) L 02/02/18 05:30 Hgb 10.5 gm/dL (12-16) L 02/02/18 05:30 Hct 31.5 % (41.0-60) L 02/02/18 05:30 MCV 92.5 fl (80-99) 02/02/18 05:30 MCH 31.0 pg (27.0-31.0) 02/02/18 05:30 MCHC Differential 33.5 pg (28.0-36.0) 02/02/18 05:30 RDW 14.4 % (11.5-20.0) 02/02/18 05:30 Plt Count 362 Th/cmm (150-400) 02/02/18 05:30 MPV 7.0 fl 02/02/18 05:30 Neutrophils % 64.3 % (40.0-80.0) 02/02/18 05:30 Lymphocytes % 19.6 % (20.0-50.0) L 02/02/18 05:30 Monocytes % 9.6 % (2.0-10.0) 02/02/18 05:30 Eosinophils % 5.5 % (0.0-5.0) H 02/02/18 05:30 Basophils % 1.0 % (0.0-2.0) 02/02/18 05:30 ESR 87 mm/hr (0-20) H 01/31/18 04:15 PT 9.9 SECONDS (9.5-11.5) 01/29/18 16:42 INR 0.95 (0.5-1.4) 01/29/18 16:42 PTT (Actin FS) 29.9 SECONDS (26.0-38.0) 01/29/18 16:42 Sodium 137 mEq/L (136-145) 02/02/18 05:30 Potassium 3.6 mEq/L (3.5-5.1) 02/02/18 05:30 Chloride 101 mEq/L (98-107) 02/02/18 05:30 Carbon Dioxide 30.8 mEq/L (21.0-31.0) 02/02/18 05:30 Anion Gap 8.8 (7.0-16.0) 02/02/18 05:30 BUN 22 mg/dL (7-25) 02/02/18 05:30 Creatinine 4.5 mg/dL (0.7-1.3) H* 02/02/18 05:30 Est GFR ( Amer) 17.0 ml/min (>90) 02/02/18 05:30 Est GFR (Non-Af Amer) 14.1 ml/min 02/02/18 05:30 BUN/Creatinine Ratio 4.9 02/02/18 05:30 Glucose 78 mg/dL (70-105) 02/02/18 05:30 POC Glucose 103 MG/DL (70 - 105) 02/01/18 07:42 Hemoglobin A1c % 3.5 % (4.0-6.0) L 01/31/18 04:15 Whole Bld Lactic Acid 0.55 mmol/L (0.60-1.99) L 01/29/18 16:42 Calcium 8.5 mg/dL (8.6-10.3) L 02/02/18 05:30 Phosphorus 4.1 mg/dL (2.5-5.0) 01/31/18 04:15 Magnesium 2.0 mg/dL (1.9-2.7) 01/31/18 04:15 Total Bilirubin 0.4 mg/dL (0.3-1.0) 01/29/18 16:42 AST 13 U/L (13-39) 01/29/18 16:42 ALT 7 U/L (7-52) 01/29/18 16:42 Alkaline Phosphatase 67 U/L (34-104) 01/29/18 16:42 Creatine Kinase 12 U/L (30-223) L 01/29/18 16:42 Troponin I 0.02 ng/mL (0.01-0.05) 01/29/18 16:42 C-Reactive Protein 11.4 mg/dL (0.0-0.9) H 01/31/18 04:15 Total Protein 6.2 gm/dL (6.0-8.3) 01/29/18 16:42 Albumin 2.4 gm/dL (4.2-5.5) L 01/29/18 16:42 Globulin 3.8 gm/dL 01/29/18 16:42 Albumin/Globulin Ratio 0.6 (1.0-1.8) L 01/29/18 16:42 Triglycerides 72 mg/dL (<150) 01/31/18 04:15 Cholesterol 97 mg/dL (<200) 01/31/18 04:15 LDL Cholesterol Direct 45 mg/dL (75-193) L 01/31/18 04:15 HDL Cholesterol 36 mg/dL (23-92) 01/31/18 04:15 TSH 2.15 uIU/ml (0.34-5.60) 01/31/18 04:15 PTH Intact 36 pg/mL (15-65) 02/01/18 05:22 Urine Source MIDSTREAM 01/29/18 22:30 Urine Color YELLOW 01/29/18 22:30 Urine Clarity HAZY (CLEAR) 01/29/18 22:30 Urine pH 8.5 (4.6 - 8.0) 01/29/18 22:30 Ur Specific [place] 1.015 (1.005-1.030) 01/29/18 22:30 Urine Protein 100 mg/dL (NEGATIVE) H 01/29/18 22:30 Urine Glucose (UA) NEGATIVE mg/dL (NEGATIVE) 01/29/18 22:30 Urine Ketones NEGATIVE mg/dL (NEGATIVE) 01/29/18 22:30 Urine Blood MODERATE (NEGATIVE) H 01/29/18 22:30 Urine Nitrate NEGATIVE (NEGATIVE) 01/29/18 22:30 Urine Bilirubin NEGATIVE (NEGATIVE) 01/29/18 22:30 Urine Urobilinogen 0.2 E.U./dL (0.2 - 1.0) 01/29/18 22:30 Ur Leukocyte Esterase LARGE (NEGATIVE) H 01/29/18 22:30 Urine RBC 2-5 /hpf (0-5) H 01/29/18 22:30 Urine WBC >100 /hpf (0-5) H 01/29/18 22:30 Ur Epithelial Cells FEW /lpf (FEW) 01/29/18 22:30 Urine Bacteria MANY /hpf (NONE SEEN) H 01/29/18 22:30 Fluid Source PLEURAL 02/01/18 11:00 Fluid Color PALE YELLOW 02/01/18 11:00 Fluid Appearance HAZY 02/01/18 11:00 Fluid WBC 149 /cumm 02/01/18 11:00 Fluid RBC 185 /cumm 02/01/18 11:00 Fluid Neutrophils 2 % 02/01/18 11:00 Fluid Lymphocytes 50 % 02/01/18 11:00 Fluid Monocytes 48 % 02/01/18 11:00 Fluid Glucose 75.0 mg/dL 02/01/18 11:00 Fluid Total Protein 2.3 g/dL 02/01/18 11:00 Fluid Amylase 61 U/L 02/01/18 11:00 Random Vancomycin 18.0 ug/mL (5.0-40.0) 02/02/18 05:30 - Physical Exam Vitals and I&O: Vital Signs Temp 97.3 F 02/03/18 07:46 Pulse 66 02/03/18 09:29 Resp 19 02/03/18 07:46 BP 145/77 02/03/18 09:29 Pulse Ox 97 02/03/18 07:46 Intake & Output 02/02/18 02/03/18 02/03/18 18:59 06:59 18:59 Intake Total 500 50 Output Total 600 Balance -100 50 Weight (lbs) 79.379 kg 79.379 kg Intake: Intake, IV Amount 50 cefTRIAXone 1 gm In 50 Sodium Chloride 0.9% 50 ml @ 100 mls/hr IV Q24HR [facility] Rx#:[id number] Oral 500 Output: Urine 600 Other: # Bowel Movements 1 Weight Source Bedscale Bedscale Active Medications: Current Medications Acetaminophen (Tylenol) 650 mg PO Q6HR PRN PRN Reason: PAIN Stop: 03/30/18 23:07 Acetaminophen/Hydrocodone Bitart ([place] 5mg/325mg) 2 tab PO Q4H PRN PRN Reason: Pain (Moderate) Stop: 03/30/18 23:16 Last Admin: 01/29/18 23:29 Dose: 2 tab Acetylcysteine (Mucomyst 20%) 2 ml HHN Q4HRT [facility] Stop: 03/31/18 14:59 Last Admin: 02/03/18 07:29 Dose: Not Given Albuterol Sulfate (Albuterol 2.5mg/3ml Neb Ud) 2.5 mg HHN Q1H PRN PRN Reason: Respiratory Distress Stop: 03/31/18 07:59 Last Admin: 02/01/18 15:33 Dose: 2.5 mg Albuterol/Ipratropium (Duoneb Neb) 3 ml HHN Q4HRT [facility] Stop: 03/31/18 14:59 Last Admin: 02/03/18 07:07 Dose: 3 ml Atorvastatin Calcium (Lipitor) 40 mg PO HS [facility] Stop: 03/31/18 20:59 Last Admin: 02/02/18 21:30 Dose: 40 mg Cinacalcet (Sensipar) 30 mg PO DAILY [facility] Stop: 03/31/18 08:59 Last Admin: 02/03/18 09:36 Dose: Not Given Diclofenac Sodium (Voltaren) 50 mg PO BID [facility] Stop: 04/01/18 08:59 Last Admin: 02/03/18 09:29 Dose: 50 mg Docusate Sodium (Colace) 100 mg PO DAILY [facility] Stop: 03/31/18 08:59 Last Admin: 02/03/18 09:28 Dose: 100 mg Epoetin Vishal (Epogen) 10,000 units SUBQ MWF@1600 [facility] Stop: 04/01/18 15:59 Last Admin: 02/02/18 17:09 Dose: 10,000 units Furosemide (Lasix) 40 mg PO DAILY [facility] Stop: 03/31/18 08:59 Last Admin: 02/03/18 09:29 Dose: 40 mg Ceftriaxone Sodium 1 gm/ (Sodium Chloride) 50 mls @ 100 mls/hr IV Q24HR [facility] Stop: 03/31/18 18:59 Last Infusion: 02/02/18 21:59 Dose: Infused Ipratropium [place] (Atrovent Neb 0.5mg/2.5ml) 0.5 mg HHN Q6HRT [facility] Stop: 03/31/18 12:59 Last Admin: 02/02/18 12:45 Dose: Not Given Lactobacillus Rhamnosus (Culturelle 15b) 1 each PO DAILY [facility] Stop: 03/30/18 23:14 Last Admin: 02/03/18 09:28 Dose: 1 each Megestrol Acetate (Megace) 400 mg PO DAILY [facility] PRN Reason: Protocol Stop: 03/31/18 08:59 Last Admin: 02/03/18 09:30 Dose: Not Given Metoprolol Tartrate (Lopressor) 50 mg PO BID [facility] Stop: 03/30/18 23:14 Last Admin: 02/03/18 09:29 Dose: 50 mg Midodrine (Proamatine) 5 mg PO TID PRN PRN Reason: HYPOTENSION Stop: 03/30/18 23:07 Miscellaneous (Vancomycin Iv Per Pharmacy) 1 ea MC PRN [facility] Stop: 03/30/18 21:44 Miscellaneous (Probiotic Screen) 1 ea PRN PRN PRN Reason: PROTOCOL Stop: 04/03/18 13:08 Morphine Sulfate (Morphine) 1 mg IVP Q4HR PRN PRN Reason: Pain (Severe) Stop: 03/30/18 23:17 Last Admin: 01/31/18 08:17 Dose: 1 mg Sevelamer Carbonate (Renvela) 800 mg PO TID [facility] Stop: 03/30/18 23:14 Last Admin: 02/03/18 09:29 Dose: Not Given Vitamin B Complex/Vit C/Folic Acid (Vitamin B Complex W/Vitamin C) 1 tab PO DAILY [facility] Stop: 03/31/18 08:59 Last Admin: 02/03/18 09:28 Dose: 1 tab General: Alert, Oriented x3, Cooperative, No acute distress HEENT: Atraumatic, PERRLA, EOMI, Mucous membr. moist/pink Neck: Supple, +2 carotid pulse wo bruit Cardiovascular: Regular rate, Normal S1, Normal S2 Lungs: Other (decreased BS right lung field) Abdomen: Bowel sounds, Soft Extremities: no Edema Neurological: Sensation intact Skin: no Rash Psych/Mental Status: Mood NL Assessment/Plan - Problem List Patient Problems: All Active Problems RIGHT FACIAL SWELLING AND PAIN (Acute)
--- NOTE | 2018-02-03 12:22 | Consultation ---
DATE OF CONSULTATION: 02/02/2018 THORACIC SURGICAL CONSULT REFERRING PHYSICIAN: Dr. Verdugo. REASON FOR CONSULTATION: Right pleural effusion. Thank you for referring this patient to me. HISTORY OF PRESENT ILLNESS: This is a 67-year-old male admitted for electrolyte imbalance. The patient was noted to have complete opacification of the right chest and thoracentesis was done with removal of about 1000 mL of fluid. The repeat chest x-ray shows complete opacification of the right chest again. LABORATORY AND DIAGNOSTIC DATA: The laboratory studies show the WBC is normal, hemoglobin 10.5, and the platelet count is 364,000. BUN is 22 and creatinine is 4.5. PAST MEDICAL HISTORY: The patient has end-stage renal disease on peritoneal dialysis, which became infected and was removed. He now has a PermCath in the right subclavian location. PHYSICAL EXAMINATION: There is virtually no breath sounds on the right side, although the patient appears to be comfortable on nasal oxygen. ASSESSMENT AND PLAN: The niece who is a nurse at bedside and informed consent was discussed regarding the need for placement of PleurX tube for drainage of effusion as needed post-discharge. This will be scheduled on Monday as Surgery would not be available on the weekend. JOB# [id number]
[2018-02-03] MEDS ORDERED: Heparin Sodium 1,000 Units/mL Vial IVP ONE (14:52)
--- NOTE | 2018-02-03 17:33 | General Progress Note ---
Subjective - Review of Systems Service Date: 02/03/18 Subjective: feels better today, denied any cough/congestion, eager to go home Objective - Results Result Diagrams: 02/02/18 05:30 02/02/18 05:30 Recent Labs: Laboratory Last Values WBC 7.6 Th/cmm (4.8-10.8) 02/02/18 05:30 RBC 3.40 Mil/cmm (3.80-5.80) L 02/02/18 05:30 Hgb 10.5 gm/dL (12-16) L 02/02/18 05:30 Hct 31.5 % (41.0-60) L 02/02/18 05:30 MCV 92.5 fl (80-99) 02/02/18 05:30 MCH 31.0 pg (27.0-31.0) 02/02/18 05:30 MCHC Differential 33.5 pg (28.0-36.0) 02/02/18 05:30 RDW 14.4 % (11.5-20.0) 02/02/18 05:30 Plt Count 362 Th/cmm (150-400) 02/02/18 05:30 MPV 7.0 fl 02/02/18 05:30 Neutrophils % 64.3 % (40.0-80.0) 02/02/18 05:30 Lymphocytes % 19.6 % (20.0-50.0) L 02/02/18 05:30 Monocytes % 9.6 % (2.0-10.0) 02/02/18 05:30 Eosinophils % 5.5 % (0.0-5.0) H 02/02/18 05:30 Basophils % 1.0 % (0.0-2.0) 02/02/18 05:30 ESR 87 mm/hr (0-20) H 01/31/18 04:15 PT 9.9 SECONDS (9.5-11.5) 01/29/18 16:42 INR 0.95 (0.5-1.4) 01/29/18 16:42 PTT (Actin FS) 29.9 SECONDS (26.0-38.0) 01/29/18 16:42 Sodium 137 mEq/L (136-145) 02/02/18 05:30 Potassium 3.6 mEq/L (3.5-5.1) 02/02/18 05:30 Chloride 101 mEq/L (98-107) 02/02/18 05:30 Carbon Dioxide 30.8 mEq/L (21.0-31.0) 02/02/18 05:30 Anion Gap 8.8 (7.0-16.0) 02/02/18 05:30 BUN 22 mg/dL (7-25) 02/02/18 05:30 Creatinine 4.5 mg/dL (0.7-1.3) H* 02/02/18 05:30 Est GFR ( Amer) 17.0 ml/min (>90) 02/02/18 05:30 Est GFR (Non-Af Amer) 14.1 ml/min 02/02/18 05:30 BUN/Creatinine Ratio 4.9 02/02/18 05:30 Glucose 78 mg/dL (70-105) 02/02/18 05:30 POC Glucose 103 MG/DL (70 - 105) 02/01/18 07:42 Hemoglobin A1c % 3.5 % (4.0-6.0) L 01/31/18 04:15 Whole Bld Lactic Acid 0.55 mmol/L (0.60-1.99) L 01/29/18 16:42 Calcium 8.5 mg/dL (8.6-10.3) L 02/02/18 05:30 Phosphorus 4.1 mg/dL (2.5-5.0) 01/31/18 04:15 Magnesium 2.0 mg/dL (1.9-2.7) 01/31/18 04:15 Total Bilirubin 0.4 mg/dL (0.3-1.0) 01/29/18 16:42 AST 13 U/L (13-39) 01/29/18 16:42 ALT 7 U/L (7-52) 01/29/18 16:42 Alkaline Phosphatase 67 U/L (34-104) 01/29/18 16:42 Creatine Kinase 12 U/L (30-223) L 01/29/18 16:42 Troponin I 0.02 ng/mL (0.01-0.05) 01/29/18 16:42 C-Reactive Protein 11.4 mg/dL (0.0-0.9) H 01/31/18 04:15 Total Protein 6.2 gm/dL (6.0-8.3) 01/29/18 16:42 Albumin 2.4 gm/dL (4.2-5.5) L 01/29/18 16:42 Globulin 3.8 gm/dL 01/29/18 16:42 Albumin/Globulin Ratio 0.6 (1.0-1.8) L 01/29/18 16:42 Triglycerides 72 mg/dL (<150) 01/31/18 04:15 Cholesterol 97 mg/dL (<200) 01/31/18 04:15 LDL Cholesterol Direct 45 mg/dL (75-193) L 01/31/18 04:15 HDL Cholesterol 36 mg/dL (23-92) 01/31/18 04:15 TSH 2.15 uIU/ml (0.34-5.60) 01/31/18 04:15 PTH Intact 36 pg/mL (15-65) 02/01/18 05:22 Urine Source MIDSTREAM 01/29/18 22:30 Urine Color YELLOW 01/29/18 22:30 Urine Clarity HAZY (CLEAR) 01/29/18 22:30 Urine pH 8.5 (4.6 - 8.0) 01/29/18 22:30 Ur Specific [place] 1.015 (1.005-1.030) 01/29/18 22:30 Urine Protein 100 mg/dL (NEGATIVE) H 01/29/18 22:30 Urine Glucose (UA) NEGATIVE mg/dL (NEGATIVE) 01/29/18 22:30 Urine Ketones NEGATIVE mg/dL (NEGATIVE) 01/29/18 22:30 Urine Blood MODERATE (NEGATIVE) H 01/29/18 22:30 Urine Nitrate NEGATIVE (NEGATIVE) 01/29/18 22:30 Urine Bilirubin NEGATIVE (NEGATIVE) 01/29/18 22:30 Urine Urobilinogen 0.2 E.U./dL (0.2 - 1.0) 01/29/18 22:30 Ur Leukocyte Esterase LARGE (NEGATIVE) H 01/29/18 22:30 Urine RBC 2-5 /hpf (0-5) H 01/29/18 22:30 Urine WBC >100 /hpf (0-5) H 01/29/18 22:30 Ur Epithelial Cells FEW /lpf (FEW) 01/29/18 22:30 Urine Bacteria MANY /hpf (NONE SEEN) H 01/29/18 22:30 Fluid Source PLEURAL 02/01/18 11:00 Fluid Color PALE YELLOW 02/01/18 11:00 Fluid Appearance HAZY 02/01/18 11:00 Fluid WBC 149 /cumm 02/01/18 11:00 Fluid RBC 185 /cumm 02/01/18 11:00 Fluid Neutrophils 2 % 02/01/18 11:00 Fluid Lymphocytes 50 % 02/01/18 11:00 Fluid Monocytes 48 % 02/01/18 11:00 Fluid Glucose 75.0 mg/dL 02/01/18 11:00 Fluid Total Protein 2.3 g/dL 02/01/18 11:00 Fluid Amylase 61 U/L 02/01/18 11:00 Random Vancomycin 18.0 ug/mL (5.0-40.0) 02/02/18 05:30 - Physical Exam Vitals and I&O: Vital Signs Temp 97.9 F 02/03/18 15:26 Pulse 64 02/03/18 16:29 Resp 16 02/03/18 15:38 BP 142/74 02/03/18 16:29 Pulse Ox 98 02/03/18 15:38 Intake & Output 02/02/18 02/03/18 02/03/18 18:59 06:59 18:59 Intake Total 500 50 Output Total 600 Balance -100 50 Weight (lbs) 79.379 kg 79.379 kg Intake: Intake, IV Amount 50 cefTRIAXone 1 gm In 50 Sodium Chloride 0.9% 50 ml @ 100 mls/hr IV Q24HR [facility] Rx#:[id number] Oral 500 Output: Urine 600 Other: # Bowel Movements 1 Weight Source Bedscale Bedscale Active Medications: Current Medications Acetaminophen (Tylenol) 650 mg PO Q6HR PRN PRN Reason: PAIN Stop: 03/30/18 23:07 Acetaminophen/Hydrocodone Bitart ([place] 5mg/325mg) 2 tab PO Q4H PRN PRN Reason: Pain (Moderate) Stop: 03/30/18 23:16 Last Admin: 01/29/18 23:29 Dose: 2 tab Acetylcysteine (Mucomyst 20%) 2 ml HHN Q4HRT [facility] Stop: 03/31/18 14:59 Last Admin: 02/03/18 15:22 Dose: Not Given Albuterol Sulfate (Albuterol 2.5mg/3ml Neb Ud) 2.5 mg HHN Q1H PRN PRN Reason: Respiratory Distress Stop: 03/31/18 07:59 Last Admin: 02/01/18 15:33 Dose: 2.5 mg Albuterol/Ipratropium (Duoneb Neb) 3 ml HHN Q4HRT [facility] Stop: 03/31/18 14:59 Last Admin: 02/03/18 15:22 Dose: 3 ml Atorvastatin Calcium (Lipitor) 40 mg PO HS [facility] Stop: 03/31/18 20:59 Last Admin: 02/02/18 21:30 Dose: 40 mg Cinacalcet (Sensipar) 30 mg PO DAILY [facility] Stop: 03/31/18 08:59 Last Admin: 02/03/18 09:36 Dose: Not Given Diclofenac Sodium (Voltaren) 50 mg PO BID [facility] Stop: 04/01/18 08:59 Last Admin: 02/03/18 16:29 Dose: 50 mg Docusate Sodium (Colace) 100 mg PO DAILY [facility] Stop: 03/31/18 08:59 Last Admin: 02/03/18 09:28 Dose: 100 mg Epoetin Vishal (Epogen) 10,000 units SUBQ MWF@1600 [facility] Stop: 04/01/18 15:59 Last Admin: 02/02/18 17:09 Dose: 10,000 units Furosemide (Lasix) 40 mg PO DAILY [facility] Stop: 03/31/18 08:59 Last Admin: 02/03/18 09:29 Dose: 40 mg Ceftriaxone Sodium 1 gm/ (Sodium Chloride) 50 mls @ 100 mls/hr IV Q24HR [facility] Stop: 03/31/18 18:59 Last Infusion: 02/02/18 21:59 Dose: Infused Ipratropium [place] (Atrovent Neb 0.5mg/2.5ml) 0.5 mg HHN Q6HRT [facility] Stop: 03/31/18 12:59 Last Admin: 02/02/18 12:45 Dose: Not Given Lactobacillus Rhamnosus (Culturelle 15b) 1 each PO DAILY [facility] Stop: 03/30/18 23:14 Last Admin: 02/03/18 09:28 Dose: 1 each Megestrol Acetate (Megace) 400 mg PO DAILY [facility] PRN Reason: Protocol Stop: 03/31/18 08:59 Last Admin: 02/03/18 09:30 Dose: Not Given Metoprolol Tartrate (Lopressor) 50 mg PO BID [facility] Stop: 03/30/18 23:14 Last Admin: 02/03/18 16:29 Dose: 50 mg Midodrine (Proamatine) 5 mg PO TID PRN PRN Reason: HYPOTENSION Stop: 03/30/18 23:07 Miscellaneous (Vancomycin Iv Per Pharmacy) 1 ea MC PRN [facility] Stop: 03/30/18 21:44 Miscellaneous (Probiotic Screen) 1 ea MC PRN PRN PRN Reason: PROTOCOL Stop: 04/03/18 13:08 Morphine Sulfate (Morphine) 1 mg IVP Q4HR PRN PRN Reason: Pain (Severe) Stop: 03/30/18 23:17 Last Admin: 01/31/18 08:17 Dose: 1 mg Sevelamer Carbonate (Renvela) 800 mg PO TID [facility] Stop: 03/30/18 23:14 Last Admin: 02/03/18 13:27 Dose: Not Given Vitamin B Complex/Vit C/Folic Acid (Vitamin B Complex W/Vitamin C) 1 tab PO DAILY [facility] Stop: 03/31/18 08:59 Last Admin: 02/03/18 09:28 Dose: 1 tab General: Alert, Oriented x3, Cooperative, No acute distress HEENT: Atraumatic, PERRLA, EOMI, Mucous membr. moist/pink Neck: Supple, +2 carotid pulse wo bruit Cardiovascular: Regular rate, Normal S1, Normal S2 Lungs: Other (decreased BS right lung field) Abdomen: Bowel sounds, Soft Extremities: no Edema Neurological: Sensation intact Skin: no Rash Psych/Mental Status: Mood NL Assessment/Plan - Problem List Patient Problems: All Active Problems RIGHT FACIAL SWELLING AND PAIN (Acute) - Assessment Assessment: ESRD on HD Right facial cellulitis Right lung opacification 2/2 effusion Cx UTI T2DM Anemia of CD - Plan Plan: Lab - Result Diagrams 01/31/18 04:15 01/31/18 04:15 Current Medications Acetaminophen (Tylenol) 650 mg PO Q6HR PRN PRN Reason: PAIN Stop: 03/30/18 23:07 Acetaminophen/Hydrocodone Bitart ([place] 5mg/325mg) 2 tab PO Q4H PRN PRN Reason: Pain (Moderate) Stop: 03/30/18 23:16 Last Admin: 01/29/18 23:29 Dose: 2 tab Acetylcysteine (Mucomyst 20%) 2 ml HHN Q4HRT [facility] Stop: 03/31/18 14:59 Last Admin: 01/31/18 11:27 Dose: 2 ml Albuterol Sulfate (Albuterol 2.5mg/3ml Neb Ud) 2.5 mg HHN Q1H PRN PRN Reason: Respiratory Distress Stop: 03/31/18 07:59 Albuterol/Ipratropium (Duoneb Neb) 3 ml HHN Q4HRT [facility] Stop: 03/31/18 14:59 Last Admin: 01/31/18 11:27 Dose: 3 ml Atorvastatin Calcium (Lipitor) 40 mg PO HS [facility] Stop: 03/31/18 20:59 Last Admin: 01/30/18 21:19 Dose: 40 mg Cinacalcet (Sensipar) 30 mg PO DAILY [facility] Stop: 03/31/18 08:59 Last Admin: 01/31/18 08:28 Dose: Not Given Diclofenac Sodium (Voltaren) 50 mg PO BID [facility] Stop: 04/01/18 08:59 Last Admin: 01/31/18 08:25 Dose: 50 mg Docusate Sodium (Colace) 100 mg PO DAILY [facility] Stop: 03/31/18 08:59 Last Admin: 01/31/18 08:26 Dose: 100 mg Epoetin Vishal (Epogen) 10,000 units SUBQ MWF@1600 [facility] Stop: 04/01/18 15:59 Furosemide (Lasix) 40 mg PO DAILY [facility] Stop: 03/31/18 08:59 Last Admin: 01/31/18 08:26 Dose: 40 mg Heparin Sodium (Porcine) (Heparin) 5,000 units IVP ONCE@2100 [facility] Stop: 01/31/18 21:01 Last Admin: 01/30/18 21:18 Dose: 5,000 units Ceftriaxone Sodium 1 gm/ (Sodium Chloride) 50 mls @ 100 mls/hr IV Q24HR [facility] Stop: 03/31/18 18:59 Last Infusion: 01/30/18 21:50 Dose: Infused Ipratropium [place] (Atrovent Neb 0.5mg/2.5ml) 0.5 mg HHN Q6HRT [facility] Stop: 03/31/18 12:59 Last Admin: 01/31/18 00:57 Dose: Not Given Lactobacillus Rhamnosus (Culturelle 15b) 1 each PO DAILY [facility] Stop: 03/30/18 23:14 Last Admin: 01/31/18 08:27 Dose: 1 each Megestrol Acetate (Megace) 400 mg PO DAILY [facility] PRN Reason: Protocol Stop: 03/31/18 08:59 Last Admin: 01/31/18 09:31 Dose: Not Given Metoprolol Tartrate (Lopressor) 50 mg PO BID [facility] Stop: 03/30/18 23:14 Last Admin: 01/31/18 08:27 Dose: 50 mg Midodrine (Proamatine) 5 mg PO TID PRN PRN Reason: HYPOTENSION Stop: 03/30/18 23:07 Miscellaneous (Vancomycin Iv Per Pharmacy) 1 ea MC PRN [facility] Stop: 03/30/18 21:44 Morphine Sulfate (Morphine) 1 mg IVP Q4HR PRN PRN Reason: Pain (Severe) Stop: 03/30/18 23:17 Last Admin: 01/31/18 08:17 Dose: 1 mg Sevelamer Carbonate (Renvela) 800 mg PO TID [facility] Stop: 03/30/18 23:14 Last Admin: 01/31/18 08:28 Dose: 800 mg Vitamin B Complex/Vit C/Folic Acid (Vitamin B Complex W/Vitamin C) 1 tab PO DAILY [facility] Stop: 03/31/18 08:59 Last Admin: 01/31/18 08:28 Dose: 1 t Lab - Result Diagrams 02/02/18 05:30 02/02/18 05:30 schedule for HD today less right facial discomfort CT scan chest revealed large right effusion 2/2 compatible ATx & collapse right lung ? PNA continue Rocephin WBC @ 7.6 for Pleurx on Mon Nutritional Asmnt/Malnutr-PDOC - Dietary Evaluation Malnutrition Findings (Please click <Entered> for more info): Nutritional Asmnt/Malnutrition Start: 02/03/18 12: 10 Text: Status: Complete Freq: Document 02/03/18 12:10 [email or web address] (Rec: 02/03/18 12:31 [email or web address] [id number]) Nutritional Asmnt/Malnutrition Patient General Information Nutritional Screening Moderate Risk Diagnosis Rt facuial cellulitis, rt pleural effusion Pertinent Medical Hx/Surgical Hx ESRD on dialysis x 7 years, COPD, hyperlipidemia, Type 2 diabetes Subjective Information Per H&P, patient was on peritoneal dialysis up to a few months ago when he was diagnosed with peritonitis ( now on HD TTS). Per nursing notes, pt refusing some medications. Diet education not appropriate at this time. Current Diet Order/ Nutrition Support 60 gm CCHO, 1200 ml fluid restriction Patient / S.O Not Indicated Pertinent Medications lipitor, Sensipar, colace, lasix, Epogen, Megacem abx, Renvela, Vitamin B complex with C Pertinent Labs ((02/02) Cr 4.5, Ca 8.5, albumin 24 Nutritional Hx/Data Height 1.68 m Height (Calculated Centimeters) 167.6 Current Weight (lbs) 79.379 kg Weight (Calculated Kilograms) 79.4 Weight (Calculated Grams) 48271.7 Colbert Body Weight 142 % Colbert Body Weight 123 Body Mass Index (BMI) 28.2 Recent Weight Change No Weight Status Overweight GI Symptoms GI Symptoms None Last BM 02/02 x 1 Difficult in: None Food Allergies No Cultural/Ethnic/[employer] Belief none indicated Usual diet at home unknown Skin Integrity/Comment: Ba 15, cellulitis facial Current %PO Good (75-100%) Estimated Nutritional Goals BEE in Kcals: Adj wt of IBW Calories/Kcals/Kg 27-32 kcal/kg using 68.2 kg Adj wt Kcals Calculated 2065-7874 kcal/day Protein: Adj wt of IBW Protein g/k.2-1.5 gm/kg (HD) Protein Calculated 80-100 gm/day Fluid: ml Per MD due to HD Nutritional Problem 1. Problem Problem Increased nutrient needs related to Etiology impaired skin integrity/ dialysis aeb Signs/Symptoms: Facial cellulitis and on HD Intervention/Recommendation Comments Consider modifying diet to 2gm sodium. Glucose/HG1AC low, no need for Diabetic restriction . Continue to monitor K and Phosphorus levels and need for Renal diet (not needed at this time.) Consider Prosource with meals for added protein due to cellulitis and HD. Expected Outcomes/Goals Expected Outcomes/Goals oral intake to meet >75% of nutrient needs, nutritino related labs normalize, weight stable.
[2018-02-03] MEDS: cefTRIAXone 1 GM in Sodium Chloride 0.9% 50 ML IV SCH (18:00)
[2018-02-03] MEDS: Ipratropium Neb 0.5 mg/2.5 mL UD HHN SCH (19:39)
[2018-02-04] MEDS: Albuterol/Ipratropium Neb 3 ML AERS HHN SCH ×6 (02:00→22:13)
[2018-02-04] MEDS: Vitamin B Complex w/Vitamin C Tab PO SCH (08:46)
[2018-02-04] MEDS: Lactobacillus Rhamnosus GG 15 Billion CFU CAP.SPRINK PO SCH (08:46)
--- NOTE | 2018-02-04 09:28 | General Progress Note ---
Subjective - Review of Systems Service Date: 02/04/18 Events since last encounter: for placement of PleurX tube tomorrow Objective - Results Result Diagrams: 02/02/18 05:30 02/02/18 05:30 Recent Labs: Laboratory Last Values WBC 7.6 Th/cmm (4.8-10.8) 02/02/18 05:30 RBC 3.40 Mil/cmm (3.80-5.80) L 02/02/18 05:30 Hgb 10.5 gm/dL (12-16) L 02/02/18 05:30 Hct 31.5 % (41.0-60) L 02/02/18 05:30 MCV 92.5 fl (80-99) 02/02/18 05:30 MCH 31.0 pg (27.0-31.0) 02/02/18 05:30 MCHC Differential 33.5 pg (28.0-36.0) 02/02/18 05:30 RDW 14.4 % (11.5-20.0) 02/02/18 05:30 Plt Count 362 Th/cmm (150-400) 02/02/18 05:30 MPV 7.0 fl 02/02/18 05:30 Neutrophils % 64.3 % (40.0-80.0) 02/02/18 05:30 Lymphocytes % 19.6 % (20.0-50.0) L 02/02/18 05:30 Monocytes % 9.6 % (2.0-10.0) 02/02/18 05:30 Eosinophils % 5.5 % (0.0-5.0) H 02/02/18 05:30 Basophils % 1.0 % (0.0-2.0) 02/02/18 05:30 ESR 87 mm/hr (0-20) H 01/31/18 04:15 PT 9.9 SECONDS (9.5-11.5) 01/29/18 16:42 INR 0.95 (0.5-1.4) 01/29/18 16:42 PTT (Actin FS) 29.9 SECONDS (26.0-38.0) 01/29/18 16:42 Sodium 137 mEq/L (136-145) 02/02/18 05:30 Potassium 3.6 mEq/L (3.5-5.1) 02/02/18 05:30 Chloride 101 mEq/L (98-107) 02/02/18 05:30 Carbon Dioxide 30.8 mEq/L (21.0-31.0) 02/02/18 05:30 Anion Gap 8.8 (7.0-16.0) 02/02/18 05:30 BUN 22 mg/dL (7-25) 02/02/18 05:30 Creatinine 4.5 mg/dL (0.7-1.3) H* 02/02/18 05:30 Est GFR ( Amer) 17.0 ml/min (>90) 02/02/18 05:30 Est GFR (Non-Af Amer) 14.1 ml/min 02/02/18 05:30 BUN/Creatinine Ratio 4.9 02/02/18 05:30 Glucose 78 mg/dL (70-105) 02/02/18 05:30 POC Glucose 103 MG/DL (70 - 105) 02/01/18 07:42 Hemoglobin A1c % 3.5 % (4.0-6.0) L 01/31/18 04:15 Whole Bld Lactic Acid 0.55 mmol/L (0.60-1.99) L 01/29/18 16:42 Calcium 8.5 mg/dL (8.6-10.3) L 02/02/18 05:30 Phosphorus 4.1 mg/dL (2.5-5.0) 01/31/18 04:15 Magnesium 2.0 mg/dL (1.9-2.7) 01/31/18 04:15 Total Bilirubin 0.4 mg/dL (0.3-1.0) 01/29/18 16:42 AST 13 U/L (13-39) 01/29/18 16:42 ALT 7 U/L (7-52) 01/29/18 16:42 Alkaline Phosphatase 67 U/L (34-104) 01/29/18 16:42 Creatine Kinase 12 U/L (30-223) L 01/29/18 16:42 Troponin I 0.02 ng/mL (0.01-0.05) 01/29/18 16:42 C-Reactive Protein 11.4 mg/dL (0.0-0.9) H 01/31/18 04:15 Total Protein 6.2 gm/dL (6.0-8.3) 01/29/18 16:42 Albumin 2.4 gm/dL (4.2-5.5) L 01/29/18 16:42 Globulin 3.8 gm/dL 01/29/18 16:42 Albumin/Globulin Ratio 0.6 (1.0-1.8) L 01/29/18 16:42 Triglycerides 72 mg/dL (<150) 01/31/18 04:15 Cholesterol 97 mg/dL (<200) 01/31/18 04:15 LDL Cholesterol Direct 45 mg/dL (75-193) L 01/31/18 04:15 HDL Cholesterol 36 mg/dL (23-92) 01/31/18 04:15 TSH 2.15 uIU/ml (0.34-5.60) 01/31/18 04:15 PTH Intact 36 pg/mL (15-65) 02/01/18 05:22 Urine Source MIDSTREAM 01/29/18 22:30 Urine Color YELLOW 01/29/18 22:30 Urine Clarity HAZY (CLEAR) 01/29/18 22:30 Urine pH 8.5 (4.6 - 8.0) 01/29/18 22:30 Ur Specific [place] 1.015 (1.005-1.030) 01/29/18 22:30 Urine Protein 100 mg/dL (NEGATIVE) H 01/29/18 22:30 Urine Glucose (UA) NEGATIVE mg/dL (NEGATIVE) 01/29/18 22:30 Urine Ketones NEGATIVE mg/dL (NEGATIVE) 01/29/18 22:30 Urine Blood MODERATE (NEGATIVE) H 01/29/18 22:30 Urine Nitrate NEGATIVE (NEGATIVE) 01/29/18 22:30 Urine Bilirubin NEGATIVE (NEGATIVE) 01/29/18 22:30 Urine Urobilinogen 0.2 E.U./dL (0.2 - 1.0) 01/29/18 22:30 Ur Leukocyte Esterase LARGE (NEGATIVE) H 01/29/18 22:30 Urine RBC 2-5 /hpf (0-5) H 01/29/18 22:30 Urine WBC >100 /hpf (0-5) H 01/29/18 22:30 Ur Epithelial Cells FEW /lpf (FEW) 01/29/18 22:30 Urine Bacteria MANY /hpf (NONE SEEN) H 01/29/18 22:30 Fluid Source PLEURAL 02/01/18 11:00 Fluid Color PALE YELLOW 02/01/18 11:00 Fluid Appearance HAZY 02/01/18 11:00 Fluid WBC 149 /cumm 02/01/18 11:00 Fluid RBC 185 /cumm 02/01/18 11:00 Fluid Neutrophils 2 % 02/01/18 11:00 Fluid Lymphocytes 50 % 02/01/18 11:00 Fluid Monocytes 48 % 02/01/18 11:00 Fluid Glucose 75.0 mg/dL 02/01/18 11:00 Fluid Total Protein 2.3 g/dL 02/01/18 11:00 Fluid Amylase 61 U/L 02/01/18 11:00 Random Vancomycin 22.5 ug/mL (5.0-40.0) 02/04/18 05:52 - Physical Exam Vitals and I&O: Vital Signs Temp 97.6 F 02/04/18 07:46 Pulse 64 02/04/18 08:47 Resp 18 02/04/18 07:46 BP 167/80 02/04/18 08:47 Pulse Ox 96 02/04/18 07:46 Intake & Output 02/03/18 02/04/18 02/04/18 18:59 06:59 18:59 Intake Total 550 300 Output Total 2600 0 Balance -2050 300 Weight (lbs) 78.018 kg 78.018 kg Intake: Intake, IV Amount 50 cefTRIAXone 1 gm In 50 Sodium Chloride 0.9% 50 ml @ 100 mls/hr IV Q24HR [facility] Rx#:[id number] Oral 500 300 Output: Urine 0 Hemodialysis 2600 Other: # Bowel Movements 0 Weight Source Bedscale Bedscale Active Medications: Current Medications Acetaminophen (Tylenol) 650 mg PO Q6HR PRN PRN Reason: PAIN Stop: 03/30/18 23:07 Acetaminophen/Hydrocodone Bitart ([place] 5mg/325mg) 2 tab PO Q4H PRN PRN Reason: Pain (Moderate) Stop: 03/30/18 23:16 Last Admin: 01/29/18 23:29 Dose: 2 tab Acetylcysteine (Mucomyst 20%) 2 ml HHN Q4HRT [facility] Stop: 03/31/18 14:59 Last Admin: 02/04/18 07:17 Dose: Not Given Albuterol Sulfate (Albuterol 2.5mg/3ml Neb Ud) 2.5 mg HHN Q1H PRN PRN Reason: Respiratory Distress Stop: 03/31/18 07:59 Last Admin: 02/01/18 15:33 Dose: 2.5 mg Albuterol/Ipratropium (Duoneb Neb) 3 ml HHN Q4HRT [facility] Stop: 03/31/18 14:59 Last Admin: 02/04/18 07:11 Dose: 3 ml Atorvastatin Calcium (Lipitor) 40 mg PO HS [facility] Stop: 03/31/18 20:59 Last Admin: 02/03/18 21:03 Dose: 40 mg Cinacalcet (Sensipar) 30 mg PO DAILY [facility] Stop: 03/31/18 08:59 Last Admin: 02/04/18 08:45 Dose: 30 mg Diclofenac Sodium (Voltaren) 50 mg PO BID [facility] Stop: 04/01/18 08:59 Last Admin: 02/04/18 08:46 Dose: 50 mg Docusate Sodium (Colace) 100 mg PO DAILY [facility] Stop: 03/31/18 08:59 Last Admin: 02/04/18 08:46 Dose: 100 mg Epoetin Vishal (Epogen) 10,000 units SUBQ MWF@1600 [facility] Stop: 04/01/18 15:59 Last Admin: 02/02/18 17:09 Dose: 10,000 units Furosemide (Lasix) 40 mg PO DAILY [facility] Stop: 03/31/18 08:59 Last Admin: 02/04/18 08:46 Dose: 40 mg Ceftriaxone Sodium 1 gm/ (Sodium Chloride) 50 mls @ 100 mls/hr IV Q24HR [facility] Stop: 03/31/18 18:59 Last Infusion: 02/03/18 18:30 Dose: Infused Ipratropium [place] (Atrovent Neb 0.5mg/2.5ml) 0.5 mg HHN Q6HRT [facility] Stop: 03/31/18 12:59 Last Admin: 02/03/18 19:39 Dose: Not Given Lactobacillus Rhamnosus (Culturelle 15b) 1 each PO DAILY [facility] Stop: 03/30/18 23:14 Last Admin: 02/04/18 08:46 Dose: 1 each Megestrol Acetate (Megace) 400 mg PO DAILY [facility] PRN Reason: Protocol Stop: 03/31/18 08:59 Last Admin: 02/04/18 08:46 Dose: Not Given Metoprolol Tartrate (Lopressor) 50 mg PO BID [facility] Stop: 03/30/18 23:14 Last Admin: 02/04/18 08:47 Dose: 50 mg Midodrine (Proamatine) 5 mg PO TID PRN PRN Reason: HYPOTENSION Stop: 03/30/18 23:07 Miscellaneous (Vancomycin Iv Per Pharmacy) 1 ea MC PRN [facility] Stop: 03/30/18 21:44 Miscellaneous (Probiotic Screen) 1 ea MC PRN PRN PRN Reason: PROTOCOL Stop: 04/03/18 13:08 Morphine Sulfate (Morphine) 1 mg IVP Q4HR PRN PRN Reason: Pain (Severe) Stop: 03/30/18 23:17 Last Admin: 01/31/18 08:17 Dose: 1 mg Sevelamer Carbonate (Renvela) 800 mg PO TID [facility] Stop: 03/30/18 23:14 Last Admin: 02/04/18 08:46 Dose: 800 mg Vitamin B Complex/Vit C/Folic Acid (Vitamin B Complex W/Vitamin C) 1 tab PO DAILY [facility] Stop: 03/31/18 08:59 Last Admin: 02/04/18 08:46 Dose: 1 tab General: Alert, Oriented x3, Cooperative, No acute distress HEENT: Atraumatic, PERRLA, EOMI, Mucous membr. moist/pink Neck: Supple, +2 carotid pulse wo bruit Cardiovascular: Regular rate, Normal S1, Normal S2 Lungs: Other (decreased BS right lung field) Abdomen: Bowel sounds, Soft Extremities: no Edema Neurological: Sensation intact Skin: no Rash Psych/Mental Status: Mood NL Assessment/Plan - Problem List Patient Problems: All Active Problems RIGHT FACIAL SWELLING AND PAIN (Acute) Nutritional Asmnt/Malnutr-PDOC - Dietary Evaluation Malnutrition Findings (Please click <Entered> for more info): Nutritional Asmnt/Malnutrition Start: 02/03/18 12: 10 Text: Status: Complete Freq: Document 02/03/18 12:10 MMULHERN (Rec: 02/03/18 12:31 [email or web address] [id number]) Nutritional Asmnt/Malnutrition Patient General Information Nutritional Screening Moderate Risk Diagnosis Rt facuial cellulitis, rt pleural effusion Pertinent Medical Hx/Surgical Hx ESRD on dialysis x 7 years, COPD, hyperlipidemia, Type 2 diabetes Subjective Information Per H&P, patient was on peritoneal dialysis up to a few months ago when he was diagnosed with peritonitis ( now on HD TTS). Per nursing notes, pt refusing some medications. Diet education not appropriate at this time. Current Diet Order/ Nutrition Support 60 gm CCHO, 1200 ml fluid restriction Patient / S.O Not Indicated Pertinent Medications lipitor, Sensipar, colace, lasix, Epogen, [place] abx, Renvela, Vitamin B complex with C Pertinent Labs ((02/02) Cr 4.5, Ca 8.5, albumin 24 Nutritional Hx/Data Height 1.68 m Height (Calculated Centimeters) 167.6 Current Weight (lbs) 79.379 kg Weight (Calculated Kilograms) 79.4 Weight (Calculated Grams) 17962.7 [place] Body Weight 142 % [place] Body Weight 123 Body Mass Index (BMI) 28.2 Recent Weight Change No Weight Status Overweight GI Symptoms GI Symptoms None Last BM 02/02 x 1 Difficult in: None Food Allergies No Cultural/Ethnic/Temple Belief none indicated Usual diet at home unknown Skin Integrity/Comment: Ba 15, cellulitis facial Current %PO Good (75-100%) Estimated Nutritional Goals BEE in Kcals: Adj wt of IBW Calories/Kcals/Kg 27-32 kcal/kg using 68.2 kg Adj wt Kcals Calculated 8430-3568 kcal/day Protein: Adj wt of IBW Protein g/k.2-1.5 gm/kg (HD) Protein Calculated 80-100 gm/day Fluid: ml Per MD due to HD Nutritional Problem 1. Problem Problem Increased nutrient needs related to Etiology impaired skin integrity/ dialysis aeb Signs/Symptoms: Facial cellulitis and on HD Intervention/Recommendation Comments Consider modifying diet to 2gm sodium. Glucose/HG1AC low, no need for Diabetic restriction . Continue to monitor K and Phosphorus levels and need for Renal diet (not needed at this time.) Consider Prosource with meals for added protein due to cellulitis and HD. Expected Outcomes/Goals Expected Outcomes/Goals oral intake to meet >75% of nutrient needs, nutritino related labs normalize, weight stable.
--- NOTE | 2018-02-04 15:32 | General Progress Note ---
Subjective - Review of Systems Service Date: 02/04/18 Subjective: feels better today, denied any cough/congestion, eager to go home, watching golf Objective - Results Result Diagrams: 02/02/18 05:30 02/02/18 05:30 Recent Labs: Laboratory Last Values WBC 7.6 Th/cmm (4.8-10.8) 02/02/18 05:30 RBC 3.40 Mil/cmm (3.80-5.80) L 02/02/18 05:30 Hgb 10.5 gm/dL (12-16) L 02/02/18 05:30 Hct 31.5 % (41.0-60) L 02/02/18 05:30 MCV 92.5 fl (80-99) 02/02/18 05:30 MCH 31.0 pg (27.0-31.0) 02/02/18 05:30 MCHC Differential 33.5 pg (28.0-36.0) 02/02/18 05:30 RDW 14.4 % (11.5-20.0) 02/02/18 05:30 Plt Count 362 Th/cmm (150-400) 02/02/18 05:30 MPV 7.0 fl 02/02/18 05:30 Neutrophils % 64.3 % (40.0-80.0) 02/02/18 05:30 Lymphocytes % 19.6 % (20.0-50.0) L 02/02/18 05:30 Monocytes % 9.6 % (2.0-10.0) 02/02/18 05:30 Eosinophils % 5.5 % (0.0-5.0) H 02/02/18 05:30 Basophils % 1.0 % (0.0-2.0) 02/02/18 05:30 ESR 87 mm/hr (0-20) H 01/31/18 04:15 PT 9.9 SECONDS (9.5-11.5) 01/29/18 16:42 INR 0.95 (0.5-1.4) 01/29/18 16:42 PTT (Actin FS) 29.9 SECONDS (26.0-38.0) 01/29/18 16:42 Sodium 137 mEq/L (136-145) 02/02/18 05:30 Potassium 3.6 mEq/L (3.5-5.1) 02/02/18 05:30 Chloride 101 mEq/L (98-107) 02/02/18 05:30 Carbon Dioxide 30.8 mEq/L (21.0-31.0) 02/02/18 05:30 Anion Gap 8.8 (7.0-16.0) 02/02/18 05:30 BUN 22 mg/dL (7-25) 02/02/18 05:30 Creatinine 4.5 mg/dL (0.7-1.3) H* 02/02/18 05:30 Est GFR ( Amer) 17.0 ml/min (>90) 02/02/18 05:30 Est GFR (Non-Af Amer) 14.1 ml/min 02/02/18 05:30 BUN/Creatinine Ratio 4.9 02/02/18 05:30 Glucose 78 mg/dL (70-105) 02/02/18 05:30 POC Glucose 103 MG/DL (70 - 105) 02/01/18 07:42 Hemoglobin A1c % 3.5 % (4.0-6.0) L 01/31/18 04:15 Whole Bld Lactic Acid 0.55 mmol/L (0.60-1.99) L 01/29/18 16:42 Calcium 8.5 mg/dL (8.6-10.3) L 02/02/18 05:30 Phosphorus 4.1 mg/dL (2.5-5.0) 01/31/18 04:15 Magnesium 2.0 mg/dL (1.9-2.7) 01/31/18 04:15 Total Bilirubin 0.4 mg/dL (0.3-1.0) 01/29/18 16:42 AST 13 U/L (13-39) 01/29/18 16:42 ALT 7 U/L (7-52) 01/29/18 16:42 Alkaline Phosphatase 67 U/L (34-104) 01/29/18 16:42 Creatine Kinase 12 U/L (30-223) L 01/29/18 16:42 Troponin I 0.02 ng/mL (0.01-0.05) 01/29/18 16:42 C-Reactive Protein 11.4 mg/dL (0.0-0.9) H 01/31/18 04:15 Total Protein 6.2 gm/dL (6.0-8.3) 01/29/18 16:42 Albumin 2.4 gm/dL (4.2-5.5) L 01/29/18 16:42 Globulin 3.8 gm/dL 01/29/18 16:42 Albumin/Globulin Ratio 0.6 (1.0-1.8) L 01/29/18 16:42 Triglycerides 72 mg/dL (<150) 01/31/18 04:15 Cholesterol 97 mg/dL (<200) 01/31/18 04:15 LDL Cholesterol Direct 45 mg/dL (75-193) L 01/31/18 04:15 HDL Cholesterol 36 mg/dL (23-92) 01/31/18 04:15 TSH 2.15 uIU/ml (0.34-5.60) 01/31/18 04:15 PTH Intact 36 pg/mL (15-65) 02/01/18 05:22 Urine Source MIDSTREAM 01/29/18 22:30 Urine Color YELLOW 01/29/18 22:30 Urine Clarity HAZY (CLEAR) 01/29/18 22:30 Urine pH 8.5 (4.6 - 8.0) 01/29/18 22:30 Ur Specific [place] 1.015 (1.005-1.030) 01/29/18 22:30 Urine Protein 100 mg/dL (NEGATIVE) H 01/29/18 22:30 Urine Glucose (UA) NEGATIVE mg/dL (NEGATIVE) 01/29/18 22:30 Urine Ketones NEGATIVE mg/dL (NEGATIVE) 01/29/18 22:30 Urine Blood MODERATE (NEGATIVE) H 01/29/18 22:30 Urine Nitrate NEGATIVE (NEGATIVE) 01/29/18 22:30 Urine Bilirubin NEGATIVE (NEGATIVE) 01/29/18 22:30 Urine Urobilinogen 0.2 E.U./dL (0.2 - 1.0) 01/29/18 22:30 Ur Leukocyte Esterase LARGE (NEGATIVE) H 01/29/18 22:30 Urine RBC 2-5 /hpf (0-5) H 01/29/18 22:30 Urine WBC >100 /hpf (0-5) H 01/29/18 22:30 Ur Epithelial Cells FEW /lpf (FEW) 01/29/18 22:30 Urine Bacteria MANY /hpf (NONE SEEN) H 01/29/18 22:30 Fluid Source PLEURAL 02/01/18 11:00 Fluid Color PALE YELLOW 02/01/18 11:00 Fluid Appearance HAZY 02/01/18 11:00 Fluid WBC 149 /cumm 02/01/18 11:00 Fluid RBC 185 /cumm 02/01/18 11:00 Fluid Neutrophils 2 % 02/01/18 11:00 Fluid Lymphocytes 50 % 02/01/18 11:00 Fluid Monocytes 48 % 02/01/18 11:00 Fluid Glucose 75.0 mg/dL 02/01/18 11:00 Fluid Total Protein 2.3 g/dL 02/01/18 11:00 Fluid Amylase 61 U/L 02/01/18 11:00 Random Vancomycin 22.5 ug/mL (5.0-40.0) 02/04/18 05:52 - Physical Exam Vitals and I&O: Vital Signs Temp 96.9 F 02/04/18 11:00 Pulse 62 02/04/18 15:07 Resp 18 02/04/18 15:16 BP 145/69 02/04/18 11:00 Pulse Ox 94 02/04/18 15:07 Intake & Output 02/03/18 02/04/18 02/04/18 18:59 06:59 18:59 Intake Total 550 300 Output Total 2600 0 Balance -2050 300 Weight (lbs) 78.018 kg 78.018 kg Intake: Intake, IV Amount 50 cefTRIAXone 1 gm In 50 Sodium Chloride 0.9% 50 ml @ 100 mls/hr IV Q24HR [facility] Rx#:[id number] Oral 500 300 Output: Urine 0 Hemodialysis 2600 Other: # Bowel Movements 0 Weight Source Bedscale Bedscale Active Medications: Current Medications Acetaminophen (Tylenol) 650 mg PO Q6HR PRN PRN Reason: PAIN Stop: 03/30/18 23:07 Acetaminophen/Hydrocodone Bitart ([place] 5mg/325mg) 2 tab PO Q4H PRN PRN Reason: Pain (Moderate) Stop: 03/30/18 23:16 Last Admin: 01/29/18 23:29 Dose: 2 tab Acetylcysteine (Mucomyst 20%) [address] [facility] Stop: 03/31/18 14:59 Last Admin: 02/04/18 07:17 Dose: Not Given Albuterol Sulfate (Albuterol 2.5mg/3ml Neb Ud) 2.5 mg HHN Q1H PRN PRN Reason: Respiratory Distress Stop: 03/31/18 07:59 Last Admin: 02/01/18 15:33 Dose: 2.5 mg Albuterol/Ipratropium (Duoneb Neb) 3 ml HHN Q4HRT [facility] Stop: 03/31/18 14:59 Last Admin: 02/04/18 15:05 Dose: 3 ml Atorvastatin Calcium (Lipitor) 40 mg PO HS [facility] Stop: 03/31/18 20:59 Last Admin: 02/03/18 21:03 Dose: 40 mg Cinacalcet (Sensipar) 30 mg PO DAILY [facility] Stop: 03/31/18 08:59 Last Admin: 02/04/18 08:45 Dose: 30 mg Diclofenac Sodium (Voltaren) 50 mg PO BID [facility] Stop: 04/01/18 08:59 Last Admin: 02/04/18 08:46 Dose: 50 mg Docusate Sodium (Colace) 100 mg PO DAILY [facility] Stop: 03/31/18 08:59 Last Admin: 02/04/18 08:46 Dose: 100 mg Epoetin Vishal (Epogen) 10,000 units SUBQ MWF@1600 [facility] Stop: 04/01/18 15:59 Last Admin: 02/02/18 17:09 Dose: 10,000 units Furosemide (Lasix) 40 mg PO DAILY [facility] Stop: 03/31/18 08:59 Last Admin: 02/04/18 08:46 Dose: 40 mg Ceftriaxone Sodium 1 gm/ (Sodium Chloride) 50 mls @ 100 mls/hr IV Q24HR [facility] Stop: 03/31/18 18:59 Last Infusion: 02/03/18 18:30 Dose: Infused Ipratropium [place] (Atrovent Neb 0.5mg/2.5ml) 0.5 mg HHN Q6HRT [facility] Stop: 03/31/18 12:59 Last Admin: 02/03/18 19:39 Dose: Not Given Lactobacillus Rhamnosus (Culturelle 15b) 1 each PO DAILY [facility] Stop: 03/30/18 23:14 Last Admin: 02/04/18 08:46 Dose: 1 each Megestrol Acetate (Megace) 400 mg PO DAILY [facility] PRN Reason: Protocol Stop: 03/31/18 08:59 Last Admin: 02/04/18 08:46 Dose: Not Given Metoprolol Tartrate (Lopressor) [address] [facility] Stop: 03/30/18 23:14 Last Admin: 02/04/18 08:47 Dose: 50 mg Midodrine (Proamatine) 5 mg PO TID PRN PRN Reason: HYPOTENSION Stop: 03/30/18 23:07 Miscellaneous (Vancomycin Iv Per Pharmacy) [address] [facility] Stop: 03/30/18 21:44 Miscellaneous (Probiotic Screen) 1 ea MC PRN PRN PRN Reason: PROTOCOL Stop: 04/03/18 13:08 Morphine Sulfate (Morphine) 1 mg IVP Q4HR PRN PRN Reason: Pain (Severe) Stop: 03/30/18 23:17 Last Admin: 01/31/18 08:17 Dose: 1 mg Sevelamer Carbonate (Renvela) [address] [facility] Stop: 03/30/18 23:14 Last Admin: 02/04/18 13:16 Dose: Not Given Vitamin B Complex/Vit C/Folic Acid (Vitamin B Complex W/Vitamin C) [address] [facility] Stop: 03/31/18 08:59 Last Admin: 02/04/18 08:46 Dose: 1 tab General: Alert, Oriented x3, Cooperative, No acute distress HEENT: Atraumatic, PERRLA, EOMI, Mucous membr. moist/pink Neck: Supple, +2 carotid pulse wo bruit Cardiovascular: Regular rate, Normal S1, Normal S2 Lungs: Other (increased BS right lung field) Abdomen: Bowel sounds, Soft Extremities: no Edema Neurological: Sensation intact Skin: no Rash Psych/Mental Status: Mood NL Assessment/Plan - Problem List Patient Problems: All Active Problems RIGHT FACIAL SWELLING AND PAIN (Acute) - Assessment Assessment: ESRD on HD Right facial cellulitis Right lung opacification 2/2 effusion Cx UTI T2DM Anemia of CD - Plan Plan: Lab - Result Diagrams 01/31/18 04:15 01/31/18 04:15 Current Medications Acetaminophen (Tylenol) 650 mg PO Q6HR PRN PRN Reason: PAIN Stop: 03/30/18 23:07 Acetaminophen/Hydrocodone Bitart ([place] 5mg/325mg) 2 tab PO Q4H PRN PRN Reason: Pain (Moderate) Stop: 03/30/18 23:16 Last Admin: 01/29/18 23:29 Dose: 2 tab Acetylcysteine (Mucomyst 20%) [address] [facility] Stop: 03/31/18 14:59 Last Admin: 01/31/18 11:27 Dose: 2 ml Albuterol Sulfate (Albuterol 2.5mg/3ml Neb Ud) 2.5 mg HHN Q1H PRN PRN Reason: Respiratory Distress Stop: 03/31/18 07:59 Albuterol/Ipratropium (Duoneb Neb) 3 ml HHN Q4HRT [facility] Stop: 03/31/18 14:59 Last Admin: 01/31/18 11:27 Dose: 3 ml Atorvastatin Calcium (Lipitor) [address] [facility] Stop: 03/31/18 20:59 Last Admin: 01/30/18 21:19 Dose: 40 mg Cinacalcet (Sensipar) [address] [facility] Stop: 03/31/18 08:59 Last Admin: 01/31/18 08:28 Dose: Not Given Diclofenac Sodium (Voltaren) [address] [facility] Stop: 04/01/18 08:59 Last Admin: 01/31/18 08:25 Dose: 50 mg Docusate Sodium (Colace) [address] [facility] Stop: 03/31/18 08:59 Last Admin: 01/31/18 08:26 Dose: 100 mg Epoetin Vishal (Epogen) 10,000 units SUBQ MWF@1600 [facility] Stop: 04/01/18 15:59 Furosemide (Lasix) [address] [facility] Stop: 03/31/18 08:59 Last Admin: 01/31/18 08:26 Dose: 40 mg Heparin Sodium (Porcine) (Heparin) 5,000 units IVP ONCE@2100 [facility] Stop: 01/31/18 21:01 Last Admin: 01/30/18 21:18 Dose: 5,000 units Ceftriaxone Sodium 1 gm/ (Sodium Chloride) 50 mls @ 100 mls/hr IV Q24HR [facility] Stop: 03/31/18 18:59 Last Infusion: 01/30/18 21:50 Dose: Infused Ipratropium [place] (Atrovent Neb 0.5mg/2.5ml) 0.[address] [facility] Stop: 03/31/18 12:59 Last Admin: 01/31/18 00:57 Dose: Not Given Lactobacillus Rhamnosus (Culturelle 15b) [address] [facility] Stop: 03/30/18 23:14 Last Admin: 01/31/18 08:27 Dose: 1 each Megestrol Acetate (Megace) 400 mg PO DAILY [facility] PRN Reason: Protocol Stop: 03/31/18 08:59 Last Admin: 01/31/18 09:31 Dose: Not Given Metoprolol Tartrate (Lopressor) [address] [facility] Stop: 03/30/18 23:14 Last Admin: 01/31/18 08:27 Dose: 50 mg Midodrine (Proamatine) 5 mg PO TID PRN PRN Reason: HYPOTENSION Stop: 03/30/18 23:07 Miscellaneous (Vancomycin Iv Per Pharmacy) [address] [facility] Stop: 03/30/18 21:44 Morphine Sulfate (Morphine) 1 mg IVP Q4HR PRN PRN Reason: Pain (Severe) Stop: 03/30/18 23:17 Last Admin: 01/31/18 08:17 Dose: 1 mg Sevelamer Carbonate (Renvela) [address] [facility] Stop: 03/30/18 23:14 Last Admin: 01/31/18 08:28 Dose: 800 mg Vitamin B Complex/Vit C/Folic Acid (Vitamin B Complex W/Vitamin C) [address] [facility] Stop: 03/31/18 08:59 Last Admin: 01/31/18 08:28 Dose: 1 t Lab - Result Diagrams 02/02/18 05:30 02/02/18 05:30 pt. dialyzed yesterday & tolerated it well less right facial discomfort CT scan chest revealed large right effusion 2/2 compatible ATx & collapse right lung ? PNA continue Rocephin WBC @ 7.6 for PleurX tomorrow Nutritional Asmnt/Malnutr-PDOC - Dietary Evaluation Malnutrition Findings (Please click <Entered> for more info): Nutritional Asmnt/Malnutrition Start: 02/03/18 12: 10 Text: Status: Complete Freq: Document 02/03/18 12:10 MMULHERN (Rec: 02/03/18 12:31 [email or web address] VALERIO- [id number]) Nutritional Asmnt/Malnutrition Patient General Information Nutritional Screening Moderate Risk Diagnosis Rt facuial cellulitis, rt pleural effusion Pertinent Medical Hx/Surgical Hx ESRD on dialysis x 7 years, COPD, hyperlipidemia, Type 2 diabetes Subjective Information Per H&P, patient was on peritoneal dialysis up to a few months ago when he was diagnosed with peritonitis ( now on HD TTS). Per nursing notes, pt refusing some medications. Diet education not appropriate at this time. Current Diet Order/ Nutrition Support 60 gm CCHO, 1200 ml fluid restriction Patient / S.O Not Indicated Pertinent Medications lipitor, Sensipar, colace, lasix, Epogen, Megacem abx, Renvela, Vitamin B complex with C Pertinent Labs ((02/02) Cr 4.5, Ca 8.5, albumin 24 Nutritional Hx/Data Height 1.68 m Height (Calculated Centimeters) 167.6 Current Weight (lbs) 79.379 kg Weight (Calculated Kilograms) 79.4 Weight (Calculated Grams) 52257.7 [place] Body Weight 142 % [place] Body Weight 123 Body Mass Index (BMI) 28.2 Recent Weight Change No Weight Status Overweight GI Symptoms GI Symptoms None Last BM 02/02 x 1 Difficult in: None Food Allergies No Cultural/Ethnic/L[employer]-Day Belief none indicated Usual diet at home unknown Skin Integrity/Comment: Ba 15, cellulitis facial Current %PO Good (75-100%) Estimated Nutritional Goals BEE in Kcals: Adj wt of IBW Calories/Kcals/Kg 27-32 kcal/kg using 68.2 kg Adj wt Kcals Calculated 9357-2460 kcal/day Protein: Adj wt of IBW Protein g/k.2-1.5 gm/kg (HD) Protein Calculated 80-100 gm/day Fluid: ml Per MD due to HD Nutritional Problem 1. Problem Problem Increased nutrient needs related to Etiology impaired skin integrity/ dialysis aeb Signs/Symptoms: Facial cellulitis and on HD Intervention/Recommendation Comments Consider modifying diet to 2gm sodium. Glucose/HG1AC low, no need for Diabetic restriction . Continue to monitor K and Phosphorus levels and need for Renal diet (not needed at this time.) Consider Prosource with meals for added protein due to cellulitis and HD. Expected Outcomes/Goals Expected Outcomes/Goals oral intake to meet >75% of nutrient needs, nutritino related labs normalize, weight stable.
[2018-02-04] MEDS: cefTRIAXone 1 GM in Sodium Chloride 0.9% 50 ML IV SCH (18:01)
[2018-02-05] MEDS: Albuterol/Ipratropium Neb 3 ML AERS HHN SCH ×6 (02:49→23:03)
[2018-02-05] MEDS ORDERED: Dextrose 50% 50 mL Abboject IVP ONE (06:29)
[2018-02-05] MEDS: D5-0.45NS 1,000 ML IV SCH ×2 (06:49→21:04)
[2018-02-05] MEDS ORDERED: Midazolam 1mg/ml 2 ml vial IV ONE ×2 (08:15)
[2018-02-05] MEDS ORDERED: fentaNYL Citrate 100 mcg/2mL Vial ONE (08:16)
[2018-02-05] MEDS: Lactobacillus Rhamnosus GG 15 Billion CFU CAP.SPRINK PO SCH (08:16)
[2018-02-05] MEDS: Vitamin B Complex w/Vitamin C Tab PO SCH (08:17)
[2018-02-05] MEDS ORDERED: Propofol **SURGERY USE ONLY** 20 ML IV ONE (08:20)
[2018-02-05] MEDS ORDERED: Labetalol 5 mg/mL 20 mL Vial ONE (09:03)
--- NOTE | 2018-02-05 10:26 | Diagnostic Imaging Report ---
Portable chest x-ray HISTORY: Chest tube placement Compared with the prior radiograph of 02/02/2018, right chest tube is been inserted. The tip is in the upper medial portion of the right hemithorax. There is a large (greater than 90%) right pneumothorax. The left lung is clear. IMPRESSION: 1. Large (greater than 90%) right pneumothorax with chest tube placement.
--- NOTE | 2018-02-05 11:26 | Diagnostic Imaging Report ---
Chest tube placement (intraoperative fluoroscopic images and services) HISTORY: Right chest tube placement Intraoperative fluoroscopic images and services were provided facilitation of a right chest tube placement. 25 seconds fluoroscopy time was utilized.
--- NOTE | 2018-02-05 12:25 | Operative Report ---
DATE OF SURGERY: 02/05/2018 PREOPERATIVE DIAGNOSES: 1. Recurrent right pleural effusion. 2. End-stage renal disease, on hemodialysis. POSTOPERATIVE DIAGNOSES: 1. Recurrent right pleural effusion. 2. End-stage renal disease, on hemodialysis. OPERATION DONE: Placement of right PleurX tube under fluoroscopy. SURGEON: Dr. Arriola ANESTHESIA: MAC. ANESTHESIOLOGIST: Carlton. ESTIMATED BLOOD LOSS: None. OPERATIVE FINDINGS: A 4000 mL of serous fluid removed. Cultures were taken. DESCRIPTION OF PROCEDURE: The patient was given IV sedation. The right chest was prepped with ChloraPrep and draped in appropriate manner. 1% lidocaine was used to infiltrate the anterior axilla line at the seventh intercostal space. A size 18 needle was used to enter the pleural space and serous fluid was aspirated. A guide was inserted under fluoroscopy and went into the chest cavity without difficulty. Under fluoroscopy, the dilator and then the introducer was placed and then the PleurX tube. A PleurX tube was connected to suction and 4000 mL of fluid was removed. The PleurX tube was anchored to the chest wall with 2-0 silk. This secured in place with Op-Site. The patient tolerated the procedure well. JOB# [id number]
--- NOTE | 2018-02-05 12:55 | General Progress Note ---
Subjective - Review of Systems Service Date: 02/05/18 Subjective: feel ok, comfortable Objective - Results Result Diagrams: 02/02/18 05:30 02/05/18 07:47 Recent Labs: Laboratory Last Values WBC 7.6 Th/cmm (4.8-10.8) 02/02/18 05:30 RBC 3.40 Mil/cmm (3.80-5.80) L 02/02/18 05:30 Hgb 10.5 gm/dL (12-16) L 02/02/18 05:30 Hct 31.5 % (41.0-60) L 02/02/18 05:30 MCV 92.5 fl (80-99) 02/02/18 05:30 MCH 31.0 pg (27.0-31.0) 02/02/18 05:30 MCHC Differential 33.5 pg (28.0-36.0) 02/02/18 05:30 RDW 14.4 % (11.5-20.0) 02/02/18 05:30 Plt Count 362 Th/cmm (150-400) 02/02/18 05:30 MPV 7.0 fl 02/02/18 05:30 Neutrophils % 64.3 % (40.0-80.0) 02/02/18 05:30 Lymphocytes % 19.6 % (20.0-50.0) L 02/02/18 05:30 Monocytes % 9.6 % (2.0-10.0) 02/02/18 05:30 Eosinophils % 5.5 % (0.0-5.0) H 02/02/18 05:30 Basophils % 1.0 % (0.0-2.0) 02/02/18 05:30 ESR 87 mm/hr (0-20) H 01/31/18 04:15 PT 9.9 SECONDS (9.5-11.5) 01/29/18 16:42 INR 0.95 (0.5-1.4) 01/29/18 16:42 PTT (Actin FS) 29.9 SECONDS (26.0-38.0) 01/29/18 16:42 Sodium 137 mEq/L (136-145) 02/02/18 05:30 Potassium 3.6 mEq/L (3.5-5.1) 02/05/18 07:47 Chloride 101 mEq/L (98-107) 02/02/18 05:30 Carbon Dioxide 30.8 mEq/L (21.0-31.0) 02/02/18 05:30 Anion Gap 8.8 (7.0-16.0) 02/02/18 05:30 BUN 22 mg/dL (7-25) 02/02/18 05:30 Creatinine 4.5 mg/dL (0.7-1.3) H* 02/02/18 05:30 Est GFR ( Amer) 17.0 ml/min (>90) 02/02/18 05:30 Est GFR (Non-Af Amer) 14.1 ml/min 02/02/18 05:30 BUN/Creatinine Ratio 4.9 02/02/18 05:30 Glucose 78 mg/dL (70-105) 02/02/18 05:30 POC Glucose 125 MG/DL (70 - 105) H 02/05/18 12:10 Hemoglobin A1c % 3.5 % (4.0-6.0) L 01/31/18 04:15 Whole Bld Lactic Acid 0.55 mmol/L (0.60-1.99) L 01/29/18 16:42 Calcium 8.5 mg/dL (8.6-10.3) L 02/02/18 05:30 Phosphorus 4.1 mg/dL (2.5-5.0) 01/31/18 04:15 Magnesium 2.0 mg/dL (1.9-2.7) 01/31/18 04:15 Total Bilirubin 0.4 mg/dL (0.3-1.0) 01/29/18 16:42 AST 13 U/L (13-39) 01/29/18 16:42 ALT 7 U/L (7-52) 01/29/18 16:42 Alkaline Phosphatase 67 U/L (34-104) 01/29/18 16:42 Creatine Kinase 12 U/L (30-223) L 01/29/18 16:42 Troponin I 0.02 ng/mL (0.01-0.05) 01/29/18 16:42 C-Reactive Protein 11.4 mg/dL (0.0-0.9) H 01/31/18 04:15 Total Protein 6.2 gm/dL (6.0-8.3) 01/29/18 16:42 Albumin 2.4 gm/dL (4.2-5.5) L 01/29/18 16:42 Globulin 3.8 gm/dL 01/29/18 16:42 Albumin/Globulin Ratio 0.6 (1.0-1.8) L 01/29/18 16:42 Triglycerides 72 mg/dL (<150) 01/31/18 04:15 Cholesterol 97 mg/dL (<200) 01/31/18 04:15 LDL Cholesterol Direct 45 mg/dL (75-193) L 01/31/18 04:15 HDL Cholesterol 36 mg/dL (23-92) 01/31/18 04:15 TSH 2.15 uIU/ml (0.34-5.60) 01/31/18 04:15 PTH Intact 36 pg/mL (15-65) 02/01/18 05:22 Urine Source MIDSTREAM 01/29/18 22:30 Urine Color YELLOW 01/29/18 22:30 Urine Clarity HAZY (CLEAR) 01/29/18 22:30 Urine pH 8.5 (4.6 - 8.0) 01/29/18 22:30 Ur Specific [place] 1.015 (1.005-1.030) 01/29/18 22:30 Urine Protein 100 mg/dL (NEGATIVE) H 01/29/18 22:30 Urine Glucose (UA) NEGATIVE mg/dL (NEGATIVE) 01/29/18 22:30 Urine Ketones NEGATIVE mg/dL (NEGATIVE) 01/29/18 22:30 Urine Blood MODERATE (NEGATIVE) H 01/29/18 22:30 Urine Nitrate NEGATIVE (NEGATIVE) 01/29/18 22:30 Urine Bilirubin NEGATIVE (NEGATIVE) 01/29/18 22:30 Urine Urobilinogen 0.2 E.U./dL (0.2 - 1.0) 01/29/18 22:30 Ur Leukocyte Esterase LARGE (NEGATIVE) H 01/29/18 22:30 Urine RBC 2-5 /hpf (0-5) H 01/29/18 22:30 Urine WBC >100 /hpf (0-5) H 01/29/18 22:30 Ur Epithelial Cells FEW /lpf (FEW) 01/29/18 22:30 Urine Bacteria MANY /hpf (NONE SEEN) H 01/29/18 22:30 Fluid Source PLEURAL 02/01/18 11:00 Fluid Color PALE YELLOW 02/01/18 11:00 Fluid Appearance HAZY 02/01/18 11:00 Fluid WBC 149 /cumm 02/01/18 11:00 Fluid RBC 185 /cumm 02/01/18 11:00 Fluid Neutrophils 2 % 02/01/18 11:00 Fluid Lymphocytes 50 % 02/01/18 11:00 Fluid Monocytes 48 % 02/01/18 11:00 Fluid Glucose 75.0 mg/dL 02/01/18 11:00 Fluid Total Protein 2.3 g/dL 02/01/18 11:00 Fluid Amylase 61 U/L 02/01/18 11:00 Random Vancomycin 22.5 ug/mL (5.0-40.0) 02/04/18 05:52 - Physical Exam Vitals and I&O: Vital Signs Temp 97.0 F 02/05/18 12:31 Pulse 61 02/05/18 12:31 Resp 18 02/05/18 12:31 BP 144/83 02/05/18 12:31 Pulse Ox 99 02/05/18 12:31 Intake & Output 02/04/18 02/05/18 02/05/18 18:59 06:59 18:59 Intake Total 400 Output Total 1 Balance 399 Weight (lbs) 78.018 kg 78.018 kg Intake: Oral 400 Output: Urine 1 Other: # Bowel Movements 0 Weight Source Bedscale Bedscale Active Medications: Current Medications Acetaminophen (Tylenol) 650 mg PO Q6HR PRN PRN Reason: PAIN Stop: 03/30/18 23:07 Acetaminophen/Hydrocodone Bitart ([place] 5mg/325mg) 2 tab PO Q4H PRN PRN Reason: Pain (Moderate) Stop: 03/30/18 23:16 Last Admin: 01/29/18 23:29 Dose: 2 tab Acetylcysteine (Mucomyst 20%) 2 ml HHN Q4HRT AMANDA Stop: 03/31/18 14:59 Last Admin: 02/04/18 07:17 Dose: Not Given Albuterol Sulfate (Albuterol 2.5mg/3ml Neb Ud) 2.5 mg HHN Q1H PRN PRN Reason: Respiratory Distress Stop: 03/31/18 07:59 Last Admin: 02/01/18 15:33 Dose: 2.5 mg Albuterol/Ipratropium (Duoneb Neb) 3 ml HHN Q4HRT AMANDA Stop: 03/31/18 14:59 Last Admin: 02/05/18 11:43 Dose: 3 ml Atorvastatin Calcium (Lipitor) 40 mg PO HS AMANDA Stop: 03/31/18 20:59 Last Admin: 02/04/18 22:00 Dose: 40 mg Cinacalcet (Sensipar) 30 mg PO DAILY AMANDA Stop: 03/31/18 08:59 Last Admin: 02/05/18 08:16 Dose: Not Given Diclofenac Sodium (Voltaren) 50 mg PO BID AMANDA Stop: 04/01/18 08:59 Last Admin: 02/05/18 08:16 Dose: Not Given Docusate Sodium (Colace) 100 mg PO DAILY AMANDA Stop: 03/31/18 08:59 Last Admin: 02/05/18 08:16 Dose: Not Given Epoetin Vishal (Epogen) 10,000 units SUBQ MWF@1600 AMANDA Stop: 04/01/18 15:59 Last Admin: 02/02/18 17:09 Dose: 10,000 units Furosemide (Lasix) 40 mg PO DAILY AMANDA Stop: 03/31/18 08:59 Last Admin: 02/05/18 08:16 Dose: Not Given Ceftriaxone Sodium 1 gm/ (Sodium Chloride) 50 mls @ 100 mls/hr IV Q24HR AMANDA Stop: 03/31/18 18:59 Last Admin: 02/04/18 18:01 Dose: 100 mls/hr Dextrose/Sodium Chloride (D5-0.45ns) 1,000 mls @ 100 mls/hr IV .Q10H AMANDA Stop: 04/06/18 06:29 Last Admin: 02/05/18 06:49 Dose: 100 mls/hr Ipratropium [place] (Atrovent Neb 0.5mg/2.5ml) 0.5 mg HHN Q6HRT AMANDA Stop: 03/31/18 12:59 Last Admin: 02/03/18 19:39 Dose: Not Given Lactobacillus Rhamnosus (Culturelle 15b) 1 each PO DAILY AMANDA Stop: 03/30/18 23:14 Last Admin: 02/05/18 08:16 Dose: Not Given Megestrol Acetate (Megace) 400 mg PO DAILY AMANDA PRN Reason: Protocol Stop: 03/31/18 08:59 Last Admin: 02/05/18 08:17 Dose: Not Given Metoprolol Tartrate (Lopressor) 50 mg PO BID [facility] Stop: 03/30/18 23:14 Last Admin: 02/05/18 08:17 Dose: Not Given Midodrine (Proamatine) 5 mg PO TID PRN PRN Reason: HYPOTENSION Stop: 03/30/18 23:07 Miscellaneous (Vancomycin Iv Per Pharmacy) 1 ea MC PRN [facility] Stop: 03/30/18 21:44 Miscellaneous (Probiotic Screen) 1 ea MC PRN PRN PRN Reason: PROTOCOL Stop: 04/03/18 13:08 Morphine Sulfate (Morphine) 1 mg IVP Q4HR PRN PRN Reason: Pain (Severe) Stop: 03/30/18 23:17 Last Admin: 01/31/18 08:17 Dose: 1 mg Sevelamer Carbonate (Renvela) 800 mg PO TID [facility] Stop: 03/30/18 23:14 Last Admin: 02/05/18 08:17 Dose: Not Given Vitamin B Complex/Vit C/Folic Acid (Vitamin B Complex W/Vitamin C) 1 tab PO DAILY [facility] Stop: 03/31/18 08:59 Last Admin: 02/05/18 08:17 Dose: Not Given General: Alert, Oriented x3, Cooperative, No acute distress HEENT: Atraumatic, PERRLA, EOMI, Mucous membr. moist/pink Neck: Supple, +2 carotid pulse wo bruit Cardiovascular: Regular rate, Normal S1, Normal S2 Lungs: Other (increased BS right lung field, (+) PleurX tube) Abdomen: Bowel sounds, Soft Extremities: no Edema Neurological: Sensation intact Skin: no Rash Psych/Mental Status: Mood NL - Procedures Procedures: Procedures Procedure Code Date DRAINAGE OF R PLEURAL CAV WITH DRAIN DEV, PERC APPROACH [id number] 01/29/18 Assessment/Plan - Problem List Patient Problems: All Active Problems RIGHT FACIAL SWELLING AND PAIN (Acute) - Assessment Assessment: ESRD on HD Right facial cellulitis Right lung opacification 2/2 effusion S/P PleurX tube Cx UTI T2DM Anemia of CD - Plan Plan: Lab - Result Diagrams 01/31/18 04:15 01/31/18 04:15 Current Medications Acetaminophen (Tylenol) 650 mg PO Q6HR PRN PRN Reason: PAIN Stop: 03/30/18 23:07 Acetaminophen/Hydrocodone Bitart ([place] 5mg/325mg) 2 tab PO Q4H PRN PRN Reason: Pain (Moderate) Stop: 03/30/18 23:16 Last Admin: 01/29/18 23:29 Dose: 2 tab Acetylcysteine (Mucomyst 20%) 2 ml HHN Q4HRT [facility] Stop: 03/31/18 14:59 Last Admin: 01/31/18 11:27 Dose: 2 ml Albuterol Sulfate (Albuterol 2.5mg/3ml Neb Ud) 2.5 mg HHN Q1H PRN PRN Reason: Respiratory Distress Stop: 03/31/18 07:59 Albuterol/Ipratropium (Duoneb Neb) 3 ml HHN Q4HRT AMANDA Stop: 03/31/18 14:59 Last Admin: 01/31/18 11:27 Dose: 3 ml Atorvastatin Calcium (Lipitor) 40 mg PO HS [facility] Stop: 03/31/18 20:59 Last Admin: 01/30/18 21:19 Dose: 40 mg Cinacalcet (Sensipar) 30 mg PO DAILY AMANDA Stop: 03/31/18 08:59 Last Admin: 01/31/18 08:28 Dose: Not Given Diclofenac Sodium (Voltaren) 50 mg PO BID [facility] Stop: 04/01/18 08:59 Last Admin: 01/31/18 08:25 Dose: 50 mg Docusate Sodium (Colace) 100 mg PO DAILY [facility] Stop: 03/31/18 08:59 Last Admin: 01/31/18 08:26 Dose: 100 mg Epoetin Vishal (Epogen) 10,000 units SUBQ MWF@1600 [facility] Stop: 04/01/18 15:59 Furosemide (Lasix) 40 mg PO DAILY [facility] Stop: 03/31/18 08:59 Last Admin: 01/31/18 08:26 Dose: 40 mg Heparin Sodium (Porcine) (Heparin) 5,000 units IVP ONCE@2100 [facility] Stop: 01/31/18 21:01 Last Admin: 01/30/18 21:18 Dose: 5,000 units Ceftriaxone Sodium 1 gm/ (Sodium Chloride) 50 mls @ 100 mls/hr IV Q24HR [facility] Stop: 03/31/18 18:59 Last Infusion: 01/30/18 21:50 Dose: Infused Ipratropium [place] (Atrovent Neb 0.5mg/2.5ml) 0.5 mg HHN Q6HRT [facility] Stop: 03/31/18 12:59 Last Admin: 01/31/18 00:57 Dose: Not Given Lactobacillus Rhamnosus (Culturelle 15b) 1 each PO DAILY [facility] Stop: 03/30/18 23:14 Last Admin: 01/31/18 08:27 Dose: 1 each Megestrol Acetate (Megace) 400 mg PO DAILY AMANDA PRN Reason: Protocol Stop: 03/31/18 08:59 Last Admin: 01/31/18 09:31 Dose: Not Given Metoprolol Tartrate (Lopressor) 50 mg PO BID [facility] Stop: 03/30/18 23:14 Last Admin: 01/31/18 08:27 Dose: 50 mg Midodrine (Proamatine) 5 mg PO TID PRN PRN Reason: HYPOTENSION Stop: 03/30/18 23:07 Miscellaneous (Vancomycin Iv Per Pharmacy) 1 ea MC PRN [facility] Stop: 03/30/18 21:44 Morphine Sulfate (Morphine) 1 mg IVP Q4HR PRN PRN Reason: Pain (Severe) Stop: 03/30/18 23:17 Last Admin: 01/31/18 08:17 Dose: 1 mg Sevelamer Carbonate (Renvela) 800 mg PO TID [facility] Stop: 03/30/18 23:14 Last Admin: 01/31/18 08:28 Dose: 800 mg Vitamin B Complex/Vit C/Folic Acid (Vitamin B Complex W/Vitamin C) 1 tab PO DAILY [facility] Stop: 03/31/18 08:59 Last Admin: 01/31/18 08:28 Dose: 1 t Lab - Result Diagrams 02/02/18 05:30 02/02/18 05:30 scheduled for HD in am just had PleurX placed, miriam 4L of serous fluid obtained CT scan chest revealed large right effusion 2/2 compatible ATx & collapse right lung ? PNA continue Rocephin WBC @ 7.6 Nutritional Asmnt/Malnutr-PDOC - Dietary Evaluation Malnutrition Findings (Please click <Entered> for more info): Nutritional Asmnt/Malnutrition Start: 05/12/18 12: 10 Text: Status: Complete Freq: Document 02/03/18 12:10 RICO (Rec: 02/03/18 12:31 RICO [email or web address]- [email or web address]) Nutritional Asmnt/Malnutrition Patient General Information Nutritional Screening Moderate Risk Diagnosis Rt facuial cellulitis, rt pleural effusion Pertinent Medical Hx/Surgical Hx ESRD on dialysis x 7 years, COPD, hyperlipidemia, Type 2 diabetes Subjective Information Per H&P, patient was on peritoneal dialysis up to a few months ago when he was diagnosed with peritonitis ( now on HD TTS). Per nursing notes, pt refusing some medications. Diet education not appropriate at this time. Current Diet Order/ Nutrition Support 60 gm CCHO, 1200 ml fluid restriction Patient / S.O Not Indicated Pertinent Medications lipitor, Sensipar, colace, lasix, Epogen, Megacem abx, Renvela, Vitamin B complex with C Pertinent Labs ((02/02) Cr 4.5, Ca 8.5, albumin 24 Nutritional Hx/Data Height 1.68 m Height (Calculated Centimeters) 167.6 Current Weight (lbs) 79.379 kg Weight (Calculated Kilograms) 79.4 Weight (Calculated Grams) 00525.7 [place] Body Weight 142 % [place] Body Weight 123 Body Mass Index (BMI) 28.2 Recent Weight Change No Weight Status Overweight GI Symptoms GI Symptoms None Last BM 02/02 x 1 Difficult in: None Food Allergies No Cultural/Ethnic/Moravian Belief none indicated Usual diet at home unknown Skin Integrity/Comment: Ba 15, cellulitis facial Current %PO Good (75-100%) Estimated Nutritional Goals BEE in Kcals: Adj wt of IBW Calories/Kcals/Kg 27-32 kcal/kg using 68.2 kg Adj wt Kcals Calculated [id number] kcal/day Protein: Adj wt of IBW Protein g/k.2-1.5 gm/kg (HD) Protein Calculated 80-100 gm/day Fluid: ml Per MD due to HD Nutritional Problem 1. Problem Problem Increased nutrient needs related to Etiology impaired skin integrity/ dialysis aeb Signs/Symptoms: Facial cellulitis and on HD Intervention/Recommendation Comments Consider modifying diet to 2gm sodium. Glucose/HG1AC low, no need for Diabetic restriction . Continue to monitor K and Phosphorus levels and need for Renal diet (not needed at this time.) Consider Prosource with meals for added protein due to cellulitis and HD. Expected Outcomes/Goals Expected Outcomes/Goals oral intake to meet >75% of nutrient needs, nutritino related labs normalize, weight stable.
[2018-02-05] MEDS: Morphine Sulfate 4 mg/mL 1mL Syr IVP PRN (18:36)
[2018-02-05] MEDS: Epoetin Alfa 20000 Units/mL Vial SUBQ SCH (19:06)
[2018-02-05] MEDS: cefTRIAXone 1 GM in Sodium Chloride 0.9% 50 ML IV SCH (20:52)
[2018-02-05] MEDS: Hydrocodone/APAP 5mg/325mg Tab PO PRN (20:57)
[2018-02-06] MEDS: Albuterol/Ipratropium Neb 3 ML AERS HHN SCH ×6 (02:05→22:41)
[2018-02-06 06:07] LABS: ALB/GLOB RATIO 0.6 (1.0-1.8); ALBUMIN 2.1 gm/dL (4.2-5.5); ANION GAP 11.4 (7.0-16.0); BILIRUBIN,TOTAL 0.3 mg/dL (0.3-1.0); CALCIUM SERUM 8.6 mg/dL (8.6-10.3); CARBON DIOXIDE 23.5 mEq/L (21.0-31.0); GFR AFRICAN-AMERICAN 11.5 ml/min (>90); GFR NON AFRICAN-AMERICAN 9.5 ml/min; MAGNESIUM 1.9 mg/dL (1.9-2.7); POTASSIUM SERUM 3.9 mEq/L (3.5-5.1); TOTAL PROTEIN,SERUM 5.9 gm/dL (6.0-8.3)
[2018-02-06 06:11] LABS: CREATININE - SERUM 6.3 mg/dL (0.7-1.3)
[2018-02-06 06:34] LABS: % BASOPHILS 0.1 % (0.0-2.0); % EOSINOPHILS 5.7 % (0.0-5.0); % LYMPHOCYTES 21.8 % (20.0-50.0); % MONOCYTES 7.5 % (2.0-10.0); % NEUTROPHILS 64.9 % (40.0-80.0); EOSINOPHILE ABSOLUTE 0.6 Th/cmm (0.1-0.4); HEMATOCRIT 35.5 % (41.0-60); HEMOGLOBIN 11.7 gm/dL (12-16); LYMPHOCYTE ABSOLUTE 2.2 Th/cmm (1.5-3.0); MEAN CELL VOLUME 92.6 fl (80-99); MEAN CORPUSCULAR HEMOGLOBIN 30.5 pg (27.0-31.0); MEAN CORPUSCULAR HGB CONC 32.9 pg (28.0-36.0); MEAN PLATELET VOLUME 6.9 fl; MONOCYTE ABSOLUTE 0.8 Th/cmm (0.3-1.0); NEUTROPHILE ABSOLUTE 6.6 Th/cmm (1.8-8.0); PLATELET COUNT 350 Th/cmm (150-400); RED BLOOD COUNT 3.84 Mil/cmm (3.80-5.80); RED CELL DISTRIBUTION WIDTH 14.5 % (11.5-20.0); WHITE BLOOD COUNT 10.2 Th/cmm (4.8-10.8)
[2018-02-06] MEDS: Ipratropium Neb 0.5 mg/2.5 mL UD HHN SCH ×2 (07:43→13:53)
--- NOTE | 2018-02-06 07:57 | Diagnostic Imaging Report ---
CT Chest without IV contrast HISTORY: Pneumothorax COMPARISON: Chest x-ray performed the same day at 9:[address] of the chest on 01/31/2018. Technique: Axial images were obtained from the base of the neck to the upper abdomen without IV contrast. Reconstructions were made. Total DLP to 47 CTD I 6.3 Findings: A right sided IJ line is seen terminating at the cavoatrial junction. Evaluation of the mediastinum is limited due to lack of IV contrast. No definite evidence of mediastinal lymphadenopathy. An aberrant retroesophageal right subclavian artery is noted. Heavy atherosclerosis is noted including coronary artery calcifications. Heart size is normal. No pericardial effusion identified. There is a right anterior approach chest tube coursing superiorly initially and then coursing inferiorly with tip terminating along the medial aspect of the right lower hemithorax adjacent to the mediastinum. There is persistent large right anterior pneumothorax estimated at 40-50%. Diffuse right lung infiltrates are seen with consolidative changes and small right effusion. Small left effusion is also noted with left basal opacity of atelectatic and consolidative changes. The upper abdomen demonstrates severe bilateral renal atrophy. Previous cholecystectomy is noted. Dilated common bile duct is noted. Atherosclerosis is noted. Diffuse anasarca is noted. Degenerative changes of the spine are noted. IMPRESSION: Right-sided chest tube noted with tip terminating along the right lower lung along the mediastinal border. There is persistent right anterior pneumothorax estimated 40-50%. Extensive right lung infiltrates and small right effusion Small left effusion with left basal passive atelectatic and consolidative changes. Right sided central line with tip in the cavoatrial junction. Heavy atherosclerotic vascular disease . Incidentally noted is an aberrant retroesophageal right subclavian artery. Anasarca Bilateral renal atrophy. Previous cholecystectomy and nondilated common bile duct.
--- NOTE | 2018-02-06 08:23 | Diagnostic Imaging Report ---
CHEST X-RAY: AP view INDICATION: Right pleural effusion COMPARISON: Chest x-ray and chest CT 02/05/2018 FINDINGS: Right chest tube and right dialysis catheter are stable. Persistent right-sided pneumothorax is noted estimated at 40%. A right effusion is noted. Mild Congestive changes are noted. Cardiomegaly is noted. IMPRESSION: Persistent right pneumothorax greatest along the mid to upper lung zones estimated at 40-50% with right pleural effusion also noted. Please refer to CT chest performed on 02/05/2018 for further details. Mild congestive changes.
[2018-02-06] MEDS: Lactobacillus Rhamnosus GG 15 Billion CFU CAP.SPRINK PO SCH (08:39)
[2018-02-06] MEDS: Vitamin B Complex w/Vitamin C Tab PO SCH (08:39)
--- NOTE | 2018-02-06 11:13 | General Progress Note ---
Subjective - Review of Systems Service Date: 02/06/18 Subjective: feels ok, comfortable Objective - Results Result Diagrams: 02/06/18 05:35 02/06/18 05:35 Recent Labs: Laboratory Last Values WBC 10.2 Th/cmm (4.8-10.8) 02/06/18 05:35 RBC 3.84 Mil/cmm (3.80-5.80) 02/06/18 05:35 Hgb 11.7 gm/dL (12-16) L 02/06/18 05:35 Hct 35.5 % (41.0-60) L 02/06/18 05:35 MCV 92.6 fl (80-99) 02/06/18 05:35 MCH 30.5 pg (27.0-31.0) 02/06/18 05:35 MCHC Differential 32.9 pg (28.0-36.0) 02/06/18 05:35 RDW 14.5 % (11.5-20.0) 02/06/18 05:35 Plt Count 350 Th/cmm (150-400) 02/06/18 05:35 MPV 6.9 fl 02/06/18 05:35 Neutrophils % 64.9 % (40.0-80.0) 02/06/18 05:35 Lymphocytes % 21.8 % (20.0-50.0) 02/06/18 05:35 Monocytes % 7.5 % (2.0-10.0) 02/06/18 05:35 Eosinophils % 5.7 % (0.0-5.0) H 02/06/18 05:35 Basophils % 0.1 % (0.0-2.0) 02/06/18 05:35 ESR 87 mm/hr (0-20) H 01/31/18 04:15 PT 9.9 SECONDS (9.5-11.5) 01/29/18 16:42 INR 0.95 (0.5-1.4) 01/29/18 16:42 PTT (Actin FS) 29.9 SECONDS (26.0-38.0) 01/29/18 16:42 Sodium 133 mEq/L (136-145) L 02/06/18 05:35 Potassium 3.9 mEq/L (3.5-5.1) 02/06/18 05:35 Chloride 102 mEq/L (98-107) 02/06/18 05:35 Carbon Dioxide 23.5 mEq/L (21.0-31.0) 02/06/18 05:35 Anion Gap 11.4 (7.0-16.0) 02/06/18 05:35 BUN 22 mg/dL (7-25) 02/06/18 05:35 Creatinine 6.3 mg/dL (0.7-1.3) H* 02/06/18 05:35 Est GFR ( Amer) 11.5 ml/min (>90) 02/06/18 05:35 Est GFR (Non-Af Amer) 9.5 ml/min 02/06/18 05:35 BUN/Creatinine Ratio 3.5 02/06/18 05:35 Glucose 73 mg/dL (70-105) 02/06/18 05:35 POC Glucose 125 MG/DL (70 - 105) H 02/05/18 12:10 Hemoglobin A1c % 3.5 % (4.0-6.0) L 01/31/18 04:15 Whole Bld Lactic Acid 0.55 mmol/L (0.60-1.99) L 01/29/18 16:42 Calcium 8.6 mg/dL (8.6-10.3) 02/06/18 05:35 Phosphorus 4.1 mg/dL (2.5-5.0) 01/31/18 04:15 Magnesium 1.9 mg/dL (1.9-2.7) 02/06/18 05:35 Total Bilirubin 0.3 mg/dL (0.3-1.0) 02/06/18 05:35 AST 12 U/L (13-39) L 02/06/18 05:35 ALT 4 U/L (7-52) L 02/06/18 05:35 Alkaline Phosphatase 53 U/L (34-104) 02/06/18 05:35 Creatine Kinase 12 U/L (30-223) L 01/29/18 16:42 Troponin I 0.02 ng/mL (0.01-0.05) 01/29/18 16:42 C-Reactive Protein 11.4 mg/dL (0.0-0.9) H 01/31/18 04:15 Total Protein 5.9 gm/dL (6.0-8.3) L 02/06/18 05:35 Albumin 2.1 gm/dL (4.2-5.5) L 02/06/18 05:35 Globulin 3.8 gm/dL 02/06/18 05:35 Albumin/Globulin Ratio 0.6 (1.0-1.8) L 02/06/18 05:35 Triglycerides 72 mg/dL (<150) 01/31/18 04:15 Cholesterol 97 mg/dL (<200) 01/31/18 04:15 LDL Cholesterol Direct 45 mg/dL (75-193) L 01/31/18 04:15 HDL Cholesterol 36 mg/dL (23-92) 01/31/18 04:15 TSH 2.15 uIU/ml (0.34-5.60) 01/31/18 04:15 PTH Intact 36 pg/mL (15-65) 02/01/18 05:22 Urine Source MIDSTREAM 01/29/18 22:30 Urine Color YELLOW 01/29/18 22:30 Urine Clarity HAZY (CLEAR) 01/29/18 22:30 Urine pH 8.5 (4.6 - 8.0) 01/29/18 22:30 Ur Specific [place] 1.015 (1.005-1.030) 01/29/18 22:30 Urine Protein 100 mg/dL (NEGATIVE) H 01/29/18 22:30 Urine Glucose (UA) NEGATIVE mg/dL (NEGATIVE) 01/29/18 22:30 Urine Ketones NEGATIVE mg/dL (NEGATIVE) 01/29/18 22:30 Urine Blood MODERATE (NEGATIVE) H 01/29/18 22:30 Urine Nitrate NEGATIVE (NEGATIVE) 01/29/18 22:30 Urine Bilirubin NEGATIVE (NEGATIVE) 01/29/18 22:30 Urine Urobilinogen 0.2 E.U./dL (0.2 - 1.0) 01/29/18 22:30 Ur Leukocyte Esterase LARGE (NEGATIVE) H 01/29/18 22:30 Urine RBC 2-5 /hpf (0-5) H 01/29/18 22:30 Urine WBC >100 /hpf (0-5) H 01/29/18 22:30 Ur Epithelial Cells FEW /lpf (FEW) 01/29/18 22:30 Urine Bacteria MANY /hpf (NONE SEEN) H 01/29/18 22:30 Fluid Source PLEURAL 02/01/18 11:00 Fluid Color PALE YELLOW 02/01/18 11:00 Fluid Appearance HAZY 02/01/18 11:00 Fluid WBC 149 /cumm 02/01/18 11:00 Fluid RBC 185 /cumm 02/01/18 11:00 Fluid Neutrophils 2 % 02/01/18 11:00 Fluid Lymphocytes 50 % 02/01/18 11:00 Fluid Monocytes 48 % 02/01/18 11:00 Fluid Glucose 75.0 mg/dL 02/01/18 11:00 Fluid Total Protein 2.3 g/dL 02/01/18 11:00 Fluid Amylase 61 U/L 02/01/18 11:00 Random Vancomycin 22.5 ug/mL (5.0-40.0) 02/04/18 05:52 - Physical Exam Vitals and I&O: Vital Signs Temp 96.9 F 02/06/18 07:59 Pulse 62 02/06/18 08:40 Resp 18 02/06/18 07:59 BP 120/62 02/06/18 08:40 Pulse Ox 97 02/06/18 07:59 Intake & Output 02/05/18 02/06/18 02/06/18 18:59 06:59 18:59 Intake Total 1000 650 Balance 1000 650 Weight (lbs) 74.644 kg Intake: Intake, IV Amount 1000 D5-0.45NS 1,000 ml @ 100 1000 mls/hr IV .Q10H [facility] Rx#: [id number] Oral 650 Other: # Voids 0 # Bowel Movements 0 Weight Source Bedscale Active Medications: Current Medications Acetaminophen (Tylenol) 650 mg PO Q6HR PRN PRN Reason: PAIN Stop: 03/30/18 23:07 Acetaminophen/Hydrocodone Bitart ([place] 5mg/325mg) 2 tab PO Q4H PRN PRN Reason: Pain (Moderate) Stop: 03/30/18 23:16 Last Admin: 02/05/18 20:57 Dose: 2 tab Acetylcysteine (Mucomyst 20%) 2 ml HHN Q4HRT [facility] Stop: 03/31/18 14:59 Last Admin: 02/06/18 07:43 Dose: Not Given Albuterol Sulfate (Albuterol 2.5mg/3ml Neb Ud) 2.5 mg HHN Q1H PRN PRN Reason: Respiratory Distress Stop: 03/31/18 07:59 Last Admin: 02/01/18 15:33 Dose: 2.5 mg Albuterol/Ipratropium (Duoneb Neb) 3 ml HHN Q4HRT [facility] Stop: 03/31/18 14:59 Last Admin: 02/06/18 07:43 Dose: 3 ml Atorvastatin Calcium (Lipitor) 40 mg PO HS [facility] Stop: 03/31/18 20:59 Last Admin: 02/05/18 20:56 Dose: 40 mg Cinacalcet (Sensipar) 30 mg PO DAILY [facility] Stop: 03/31/18 08:59 Last Admin: 02/06/18 08:39 Dose: 30 mg Diclofenac Sodium (Voltaren) 50 mg PO BID [facility] Stop: 04/01/18 08:59 Last Admin: 02/06/18 08:40 Dose: 50 mg Docusate Sodium (Colace) 100 mg PO DAILY [facility] Stop: 03/31/18 08:59 Last Admin: 02/06/18 08:40 Dose: 100 mg Epoetin Vishal (Epogen) 10,000 units SUBQ MWF@1600 [facility] Stop: 04/01/18 15:59 Last Admin: 02/05/18 19:06 Dose: Not Given Furosemide (Lasix) 40 mg PO DAILY [facility] Stop: 03/31/18 08:59 Last Admin: 02/06/18 08:40 Dose: 40 mg Ceftriaxone Sodium 1 gm/ (Sodium Chloride) 50 mls @ 100 mls/hr IV Q24HR [facility] Stop: 03/31/18 18:59 Last Admin: 02/05/18 20:52 Dose: 100 mls/hr Ipratropium [place] (Atrovent Neb 0.5mg/2.5ml) 0.5 mg HHN Q6HRT [facility] Stop: 03/31/18 12:59 Last Admin: 02/06/18 07:43 Dose: Not Given Lactobacillus Rhamnosus (Culturelle 15b) 1 each PO DAILY [facility] Stop: 03/30/18 23:14 Last Admin: 02/06/18 08:39 Dose: 1 each Megestrol Acetate (Megace) 400 mg PO DAILY [facility] PRN Reason: Protocol Stop: 03/31/18 08:59 Last Admin: 02/06/18 08:46 Dose: Not Given Metoprolol Tartrate (Lopressor) 50 mg PO BID [facility] Stop: 03/30/18 23:14 Last Admin: 02/06/18 08:40 Dose: 50 mg Midodrine (Proamatine) 5 mg PO TID PRN PRN Reason: HYPOTENSION Stop: 03/30/18 23:07 Miscellaneous (Probiotic Screen) 1 ea MC PRN PRN PRN Reason: PROTOCOL Stop: 04/03/18 13:08 Morphine Sulfate (Morphine) 1 mg IVP Q4HR PRN PRN Reason: Pain (Severe) Stop: 03/30/18 23:17 Last Admin: 02/05/18 18:36 Dose: 1 mg Sevelamer Carbonate (Renvela) 800 mg PO TID [facility] Stop: 03/30/18 23:14 Last Admin: 02/06/18 08:46 Dose: Not Given Vitamin B Complex/Vit C/Folic Acid (Vitamin B Complex W/Vitamin C) 1 tab PO DAILY [facility] Stop: 03/31/18 08:59 Last Admin: 02/06/18 08:39 Dose: 1 tab General: Alert, Oriented x3, Cooperative, No acute distress HEENT: Atraumatic, PERRLA, EOMI, Mucous membr. moist/pink Neck: Supple, +2 carotid pulse wo bruit Cardiovascular: Regular rate, Normal S1, Normal S2 Lungs: Other (increased BS right lung field, (+) PleurX tube) Abdomen: Bowel sounds, Soft Extremities: no Edema Neurological: Sensation intact Skin: no Rash Psych/Mental Status: Mood NL - Procedures Procedures: Procedures Procedure Code Date DRAINAGE OF R PLEURAL CAV WITH DRAIN DEV, PERC APPROACH [id number] 01/29/18 Assessment/Plan - Problem List Patient Problems: All Active Problems RIGHT FACIAL SWELLING AND PAIN (Acute) - Assessment Assessment: ESRD on HD Right facial cellulitis Right lung opacification 2/2 effusion S/P PleurX tube Cx UTI T2DM Anemia of CD - Plan Plan: Lab - Result Diagrams 01/31/18 04:15 01/31/18 04:15 Current Medications Acetaminophen (Tylenol) 650 mg PO Q6HR PRN PRN Reason: PAIN Stop: 03/30/18 23:07 Acetaminophen/Hydrocodone Bitart ([place] 5mg/325mg) 2 tab PO Q4H PRN PRN Reason: Pain (Moderate) Stop: 03/30/18 23:16 Last Admin: 01/29/18 23:29 Dose: 2 tab Acetylcysteine (Mucomyst 20%) 2 ml HHN Q4HRT [facility] Stop: 03/31/18 14:59 Last Admin: 01/31/18 11:27 Dose: 2 ml Albuterol Sulfate (Albuterol 2.5mg/3ml Neb Ud) 2.5 mg HHN Q1H PRN PRN Reason: Respiratory Distress Stop: 03/31/18 07:59 Albuterol/Ipratropium (Duoneb Neb) 3 ml HHN Q4HRT [facility] Stop: 03/31/18 14:59 Last Admin: 01/31/18 11:27 Dose: 3 ml Atorvastatin Calcium (Lipitor) 40 mg PO HS [facility] Stop: 03/31/18 20:59 Last Admin: 01/30/18 21:19 Dose: 40 mg Cinacalcet (Sensipar) 30 mg PO DAILY [facility] Stop: 03/31/18 08:59 Last Admin: 01/31/18 08:28 Dose: Not Given Diclofenac Sodium (Voltaren) 50 mg PO BID [facility] Stop: 04/01/18 08:59 Last Admin: 01/31/18 08:25 Dose: 50 mg Docusate Sodium (Colace) 100 mg PO DAILY [facility] Stop: 03/31/18 08:59 Last Admin: 01/31/18 08:26 Dose: 100 mg Epoetin Vishal (Epogen) 10,000 units SUBQ MWF@1600 [facility] Stop: 04/01/18 15:59 Furosemide (Lasix) 40 mg PO DAILY [facility] Stop: 03/31/18 08:59 Last Admin: 01/31/18 08:26 Dose: 40 mg Heparin Sodium (Porcine) (Heparin) 5,000 units IVP ONCE@2100 [facility] Stop: 01/31/18 21:01 Last Admin: 01/30/18 21:18 Dose: 5,000 units Ceftriaxone Sodium 1 gm/ (Sodium Chloride) 50 mls @ 100 mls/hr IV Q24HR [facility] Stop: 03/31/18 18:59 Last Infusion: 01/30/18 21:50 Dose: Infused Ipratropium [place] (Atrovent Neb 0.5mg/2.5ml) 0.5 mg HHN Q6HRT [facility] Stop: 03/31/18 12:59 Last Admin: 01/31/18 00:57 Dose: Not Given Lactobacillus Rhamnosus (Culturelle 15b) 1 each PO DAILY [facility] Stop: 03/30/18 23:14 Last Admin: 01/31/18 08:27 Dose: 1 each Megestrol Acetate (Megace) 400 mg PO DAILY [facility] PRN Reason: Protocol Stop: 03/31/18 08:59 Last Admin: 01/31/18 09:31 Dose: Not Given Metoprolol Tartrate (Lopressor) 50 mg PO BID [facility] Stop: 03/30/18 23:14 Last Admin: 01/31/18 08:27 Dose: 50 mg Midodrine (Proamatine) 5 mg PO TID PRN PRN Reason: HYPOTENSION Stop: 03/30/18 23:07 Miscellaneous (Vancomycin Iv Per Pharmacy) 1 ea MC PRN [facility] Stop: 03/30/18 21:44 Morphine Sulfate (Morphine) 1 mg IVP Q4HR PRN PRN Reason: Pain (Severe) Stop: 03/30/18 23:17 Last Admin: 01/31/18 08:17 Dose: 1 mg Sevelamer Carbonate (Renvela) 800 mg PO TID [facility] Stop: 03/30/18 23:14 Last Admin: 01/31/18 08:28 Dose: 800 mg Vitamin B Complex/Vit C/Folic Acid (Vitamin B Complex W/Vitamin C) 1 tab PO DAILY [facility] Stop: 03/31/18 08:59 Last Admin: 01/31/18 08:28 Dose: 1 t Lab - Result Diagrams 02/06/18 05:35 02/06/18 05:35 scheduled for HD today just had PleurX placed CT scan chest revealed large right effusion 2/2 compatible ATx & collapse right lung ? PNA continue Rocephin WBC @ 10.2 Nutritional Asmnt/Malnutr-PDOC - Dietary Evaluation Malnutrition Findings (Please click <Entered> for more info): Nutritional Asmnt/Malnutrition Start: 02/03/18 12: 10 Text: Status: Complete Freq: Document 02/03/18 12:10 MMULHERN (Rec: 02/03/18 12:31 [email or web address] [email or web address]) Nutritional Asmnt/Malnutrition Patient General Information Nutritional Screening Moderate Risk Diagnosis Rt facuial cellulitis, rt pleural effusion Pertinent Medical Hx/Surgical Hx ESRD on dialysis x 7 years, COPD, hyperlipidemia, Type 2 diabetes Subjective Information Per H&P, patient was on peritoneal dialysis up to a few months ago when he was diagnosed with peritonitis ( now on HD TTS). Per nursing notes, pt refusing some medications. Diet education not appropriate at this time. Current Diet Order/ Nutrition Support 60 gm CCHO, 1200 ml fluid restriction Patient / S.O Not Indicated Pertinent Medications lipitor, Sensipar, colace, lasix, Epogen, [place] abx, Renvela, Vitamin B complex with C Pertinent Labs ((02/02) Cr 4.5, Ca 8.5, albumin 24 Nutritional Hx/Data Height 1.68 m Height (Calculated Centimeters) 167.6 Current Weight (lbs) 79.379 kg Weight (Calculated Kilograms) 79.4 Weight (Calculated Grams) 78891.7 [place] Body Weight 142 % [place] Body Weight 123 Body Mass Index (BMI) 28.2 Recent Weight Change No Weight Status Overweight GI Symptoms GI Symptoms None Last BM 02/02 x 1 Difficult in: None Food Allergies No Cultural/Ethnic/Evangelical Belief none indicated Usual diet at home unknown Skin Integrity/Comment: Ba 15, cellulitis facial Current %PO Good (75-100%) Estimated Nutritional Goals BEE in Kcals: Adj wt of IBW Calories/Kcals/Kg 27-32 kcal/kg using 68.2 kg Adj wt Kcals Calculated 5375-1162 kcal/day Protein: Adj wt of IBW Protein g/k.2-1.5 gm/kg (HD) Protein Calculated 80-100 gm/day Fluid: ml Per MD due to HD Nutritional Problem 1. Problem Problem Increased nutrient needs related to Etiology impaired skin integrity/ dialysis aeb Signs/Symptoms: Facial cellulitis and on HD Intervention/Recommendation Comments Consider modifying diet to 2gm sodium. Glucose/HG1AC low, no need for Diabetic restriction . Continue to monitor K and Phosphorus levels and need for Renal diet (not needed at this time.) Consider Prosource with meals for added protein due to cellulitis and HD. Expected Outcomes/Goals Expected Outcomes/Goals oral intake to meet >75% of nutrient needs, nutritino related labs normalize, weight stable.
--- NOTE | 2018-02-06 11:33 | General Progress Note ---
Subjective - Review of Systems Service Date: 02/06/18 Events since last encounter: pneumo persists move patient to ICU for suction as current machine does not work Objective - Results Result Diagrams: 02/06/18 05:35 02/06/18 05:35 Recent Labs: Laboratory Last Values WBC 10.2 Th/cmm (4.8-10.8) 02/06/18 05:35 RBC 3.84 Mil/cmm (3.80-5.80) 02/06/18 05:35 Hgb 11.7 gm/dL (12-16) L 02/06/18 05:35 Hct 35.5 % (41.0-60) L 02/06/18 05:35 MCV 92.6 fl (80-99) 02/06/18 05:35 MCH 30.5 pg (27.0-31.0) 02/06/18 05:35 MCHC Differential 32.9 pg (28.0-36.0) 02/06/18 05:35 RDW 14.5 % (11.5-20.0) 02/06/18 05:35 Plt Count 350 Th/cmm (150-400) 02/06/18 05:35 MPV 6.9 fl 02/06/18 05:35 Neutrophils % 64.9 % (40.0-80.0) 02/06/18 05:35 Lymphocytes % 21.8 % (20.0-50.0) 02/06/18 05:35 Monocytes % 7.5 % (2.0-10.0) 02/06/18 05:35 Eosinophils % 5.7 % (0.0-5.0) H 02/06/18 05:35 Basophils % 0.1 % (0.0-2.0) 02/06/18 05:35 ESR 87 mm/hr (0-20) H 01/31/18 04:15 PT 9.9 SECONDS (9.5-11.5) 01/29/18 16:42 INR 0.95 (0.5-1.4) 01/29/18 16:42 PTT (Actin FS) 29.9 SECONDS (26.0-38.0) 01/29/18 16:42 Sodium 133 mEq/L (136-145) L 02/06/18 05:35 Potassium 3.9 mEq/L (3.5-5.1) 02/06/18 05:35 Chloride 102 mEq/L (98-107) 02/06/18 05:35 Carbon Dioxide 23.5 mEq/L (21.0-31.0) 02/06/18 05:35 Anion Gap 11.4 (7.0-16.0) 02/06/18 05:35 BUN 22 mg/dL (7-25) 02/06/18 05:35 Creatinine 6.3 mg/dL (0.7-1.3) H* 02/06/18 05:35 Est GFR ( Amer) 11.5 ml/min (>90) 02/06/18 05:35 Est GFR (Non-Af Amer) 9.5 ml/min 02/06/18 05:35 BUN/Creatinine Ratio 3.5 02/06/18 05:35 Glucose 73 mg/dL (70-105) 02/06/18 05:35 POC Glucose 125 MG/DL (70 - 105) H 02/05/18 12:10 Hemoglobin A1c % 3.5 % (4.0-6.0) L 01/31/18 04:15 Whole Bld Lactic Acid 0.55 mmol/L (0.60-1.99) L 01/29/18 16:42 Calcium 8.6 mg/dL (8.6-10.3) 02/06/18 05:35 Phosphorus 4.1 mg/dL (2.5-5.0) 01/31/18 04:15 Magnesium 1.9 mg/dL (1.9-2.7) 02/06/18 05:35 Total Bilirubin 0.3 mg/dL (0.3-1.0) 02/06/18 05:35 AST 12 U/L (13-39) L 02/06/18 05:35 ALT 4 U/L (7-52) L 02/06/18 05:35 Alkaline Phosphatase 53 U/L (34-104) 02/06/18 05:35 Creatine Kinase 12 U/L (30-223) L 01/29/18 16:42 Troponin I 0.02 ng/mL (0.01-0.05) 01/29/18 16:42 C-Reactive Protein 11.4 mg/dL (0.0-0.9) H 01/31/18 04:15 Total Protein 5.9 gm/dL (6.0-8.3) L 02/06/18 05:35 Albumin 2.1 gm/dL (4.2-5.5) L 02/06/18 05:35 Globulin 3.8 gm/dL 02/06/18 05:35 Albumin/Globulin Ratio 0.6 (1.0-1.8) L 02/06/18 05:35 Triglycerides 72 mg/dL (<150) 01/31/18 04:15 Cholesterol 97 mg/dL (<200) 01/31/18 04:15 LDL Cholesterol Direct 45 mg/dL (75-193) L 01/31/18 04:15 HDL Cholesterol 36 mg/dL (23-92) 01/31/18 04:15 TSH 2.15 uIU/ml (0.34-5.60) 01/31/18 04:15 PTH Intact 36 pg/mL (15-65) 02/01/18 05:22 Urine Source MIDSTREAM 01/29/18 22:30 Urine Color YELLOW 01/29/18 22:30 Urine Clarity HAZY (CLEAR) 01/29/18 22:30 Urine pH 8.5 (4.6 - 8.0) 01/29/18 22:30 Ur Specific [place] 1.015 (1.005-1.030) 01/29/18 22:30 Urine Protein 100 mg/dL (NEGATIVE) H 01/29/18 22:30 Urine Glucose (UA) NEGATIVE mg/dL (NEGATIVE) 01/29/18 22:30 Urine Ketones NEGATIVE mg/dL (NEGATIVE) 01/29/18 22:30 Urine Blood MODERATE (NEGATIVE) H 01/29/18 22:30 Urine Nitrate NEGATIVE (NEGATIVE) 01/29/18 22:30 Urine Bilirubin NEGATIVE (NEGATIVE) 01/29/18 22:30 Urine Urobilinogen 0.2 E.U./dL (0.2 - 1.0) 01/29/18 22:30 Ur Leukocyte Esterase LARGE (NEGATIVE) H 01/29/18 22:30 Urine RBC 2-5 /hpf (0-5) H 01/29/18 22:30 Urine WBC >100 /hpf (0-5) H 01/29/18 22:30 Ur Epithelial Cells FEW /lpf (FEW) 01/29/18 22:30 Urine Bacteria MANY /hpf (NONE SEEN) H 01/29/18 22:30 Fluid Source PLEURAL 02/01/18 11:00 Fluid Color PALE YELLOW 02/01/18 11:00 Fluid Appearance HAZY 02/01/18 11:00 Fluid WBC 149 /cumm 02/01/18 11:00 Fluid RBC 185 /cumm 02/01/18 11:00 Fluid Neutrophils 2 % 02/01/18 11:00 Fluid Lymphocytes 50 % 02/01/18 11:00 Fluid Monocytes 48 % 02/01/18 11:00 Fluid Glucose 75.0 mg/dL 02/01/18 11:00 Fluid Total Protein 2.3 g/dL 02/01/18 11:00 Fluid Amylase 61 U/L 02/01/18 11:00 Random Vancomycin 22.5 ug/mL (5.0-40.0) 02/04/18 05:52 - Physical Exam Vitals and I&O: Vital Signs Temp 96.9 F 02/06/18 07:59 Pulse 75 02/06/18 11:14 Resp 18 02/06/18 11:14 BP 120/62 02/06/18 08:40 Pulse Ox 97 02/06/18 11:14 Intake & Output 02/05/18 02/06/18 02/06/18 18:59 06:59 18:59 Intake Total 1000 650 Balance 1000 650 Weight (lbs) 74.644 kg Intake: Intake, IV Amount 1000 D5-0.45NS 1,000 ml @ 100 1000 mls/hr IV .Q10H [facility] Rx#: [id number] Oral 650 Other: # Voids 0 # Bowel Movements 0 Weight Source Bedscale Active Medications: Current Medications Acetaminophen (Tylenol) 650 mg PO Q6HR PRN PRN Reason: PAIN Stop: 03/30/18 23:07 Acetaminophen/Hydrocodone Bitart ([place] 5mg/325mg) 2 tab PO Q4H PRN PRN Reason: Pain (Moderate) Stop: 03/30/18 23:16 Last Admin: 02/05/18 20:57 Dose: 2 tab Acetylcysteine (Mucomyst 20%) 2 ml HHN Q4HRT [facility] Stop: 03/31/18 14:59 Last Admin: 02/06/18 11:16 Dose: Not Given Albuterol Sulfate (Albuterol 2.5mg/3ml Neb Ud) 2.5 mg HHN Q1H PRN PRN Reason: Respiratory Distress Stop: 03/31/18 07:59 Last Admin: 02/01/18 15:33 Dose: 2.5 mg Albuterol/Ipratropium (Duoneb Neb) 3 ml HHN Q4HRT [facility] Stop: 03/31/18 14:59 Last Admin: 02/06/18 11:13 Dose: 3 ml Atorvastatin Calcium (Lipitor) 40 mg PO HS [facility] Stop: 03/31/18 20:59 Last Admin: 02/05/18 20:56 Dose: 40 mg Cinacalcet (Sensipar) 30 mg PO DAILY [facility] Stop: 03/31/18 08:59 Last Admin: 02/06/18 08:39 Dose: 30 mg Diclofenac Sodium (Voltaren) 50 mg PO BID [facility] Stop: 04/01/18 08:59 Last Admin: 02/06/18 08:40 Dose: 50 mg Docusate Sodium (Colace) 100 mg PO DAILY [facility] Stop: 03/31/18 08:59 Last Admin: 02/06/18 08:40 Dose: 100 mg Epoetin Vishal (Epogen) 10,000 units SUBQ MWF@1600 [facility] Stop: 04/01/18 15:59 Last Admin: 02/05/18 19:06 Dose: Not Given Furosemide (Lasix) 40 mg PO DAILY [facility] Stop: 03/31/18 08:59 Last Admin: 02/06/18 08:40 Dose: 40 mg Ceftriaxone Sodium 1 gm/ (Sodium Chloride) 50 mls @ 100 mls/hr IV Q24HR [facility] Stop: 03/31/18 18:59 Last Admin: 02/05/18 20:52 Dose: 100 mls/hr Ipratropium [place] (Atrovent Neb 0.5mg/2.5ml) 0.5 mg HHN Q6HRT [facility] Stop: 03/31/18 12:59 Last Admin: 02/06/18 07:43 Dose: Not Given Lactobacillus Rhamnosus (Culturelle 15b) 1 each PO DAILY [facility] Stop: 03/30/18 23:14 Last Admin: 02/06/18 08:39 Dose: 1 each Megestrol Acetate (Megace) 400 mg PO DAILY [facility] PRN Reason: Protocol Stop: 03/31/18 08:59 Last Admin: 02/06/18 08:46 Dose: Not Given Metoprolol Tartrate (Lopressor) 50 mg PO BID [facility] Stop: 03/30/18 23:14 Last Admin: 02/06/18 08:40 Dose: 50 mg Midodrine (Proamatine) 5 mg PO TID PRN PRN Reason: HYPOTENSION Stop: 03/30/18 23:07 Miscellaneous (Probiotic Screen) 1 ea MC PRN PRN PRN Reason: PROTOCOL Stop: 04/03/18 13:08 Morphine Sulfate (Morphine) 1 mg IVP Q4HR PRN PRN Reason: Pain (Severe) Stop: 03/30/18 23:17 Last Admin: 02/05/18 18:36 Dose: 1 mg Sevelamer Carbonate (Renvela) 800 mg PO TID [facility] Stop: 03/30/18 23:14 Last Admin: 02/06/18 08:46 Dose: Not Given Vitamin B Complex/Vit C/Folic Acid (Vitamin B Complex W/Vitamin C) 1 tab PO DAILY [facility] Stop: 03/31/18 08:59 Last Admin: 02/06/18 08:39 Dose: 1 tab General: Alert, Oriented x3, Cooperative, No acute distress HEENT: Atraumatic, PERRLA, EOMI, Mucous membr. moist/pink Neck: Supple, +2 carotid pulse wo bruit Cardiovascular: Regular rate, Normal S1, Normal S2 Lungs: Other (increased BS right lung field, (+) PleurX tube) Abdomen: Bowel sounds, Soft Extremities: no Edema Neurological: Sensation intact Skin: no Rash Psych/Mental Status: Mood NL - Procedures Procedures: Procedures Procedure Code Date DRAINAGE OF R PLEURAL CAV WITH DRAIN DEV, PERC APPROACH [id number] 01/29/18 Assessment/Plan - Problem List Patient Problems: All Active Problems RIGHT FACIAL SWELLING AND PAIN (Acute) Nutritional Asmnt/Malnutr-PDOC - Dietary Evaluation Malnutrition Findings (Please click <Entered> for more info): Nutritional Asmnt/Malnutrition Start: 02/03/18 12: 10 Text: Status: Complete Freq: Document 02/03/18 12:10 MMULHERN (Rec: 02/03/18 12:31 [id number] [email or web address]) Nutritional Asmnt/Malnutrition Patient General Information Nutritional Screening Moderate Risk Diagnosis Rt facuial cellulitis, rt pleural effusion Pertinent Medical Hx/Surgical Hx ESRD on dialysis x 7 years, COPD, hyperlipidemia, Type 2 diabetes Subjective Information Per H&P, patient was on peritoneal dialysis up to a few months ago when he was diagnosed with peritonitis ( now on HD TTS). Per nursing notes, pt refusing some medications. Diet education not appropriate at this time. Current Diet Order/ Nutrition Support 60 gm CCHO, 1200 ml fluid restriction Patient / S.O Not Indicated Pertinent Medications lipitor, Sensipar, colace, lasix, Epogen, Megacem abx, Renvela, Vitamin B complex with C Pertinent Labs ((02/02) Cr 4.5, Ca 8.5, albumin 24 Nutritional Hx/Data Height 1.68 m Height (Calculated Centimeters) 167.6 Current Weight (lbs) 79.379 kg Weight (Calculated Kilograms) 79.4 Weight (Calculated Grams) 38696.7 [place] Body Weight 142 % [place] Body Weight 123 Body Mass Index (BMI) 28.2 Recent Weight Change No Weight Status Overweight GI Symptoms GI Symptoms None Last BM 02/02 x 1 Difficult in: None Food Allergies No Cultural/Ethnic/Catholic Belief none indicated Usual diet at home unknown Skin Integrity/Comment: Ba 15, cellulitis facial Current %PO Good (75-100%) Estimated Nutritional Goals BEE in Kcals: Adj wt of IBW Calories/Kcals/Kg 27-32 kcal/kg using 68.2 kg Adj wt Kcals Calculated 0262-6307 kcal/day Protein: Adj wt of IBW Protein g/k.2-1.5 gm/kg (HD) Protein Calculated 80-100 gm/day Fluid: ml Per MD due to HD Nutritional Problem 1. Problem Problem Increased nutrient needs related to Etiology impaired skin integrity/ dialysis aeb Signs/Symptoms: Facial cellulitis and on HD Intervention/Recommendation Comments Consider modifying diet to 2gm sodium. Glucose/HG1AC low, no need for Diabetic restriction . Continue to monitor K and Phosphorus levels and need for Renal diet (not needed at this time.) Consider Prosource with meals for added protein due to cellulitis and HD. Expected Outcomes/Goals Expected Outcomes/Goals oral intake to meet >75% of nutrient needs, nutritino related labs normalize, weight stable.
[2018-02-06] MEDS: Hydrocodone/APAP 5mg/325mg Tab PO PRN (13:38)
[2018-02-06] MEDS: cefTRIAXone 1 GM in Sodium Chloride 0.9% 50 ML IV SCH (18:00)
[2018-02-07] MEDS: Albuterol/Ipratropium Neb 3 ML AERS HHN SCH ×6 (03:10→22:18)
[2018-02-07] MEDS: Hydrocodone/APAP 5mg/325mg Tab PO PRN (04:10)
[2018-02-07 06:14] LABS: ANION GAP 8.5 (7.0-16.0); CALCIUM SERUM 8.6 mg/dL (8.6-10.3); CARBON DIOXIDE 27.3 mEq/L (21.0-31.0); GFR AFRICAN-AMERICAN 17.4 ml/min (>90); GFR NON AFRICAN-AMERICAN 14.4 ml/min; MAGNESIUM 1.8 mg/dL (1.9-2.7); POTASSIUM SERUM 3.8 mEq/L (3.5-5.1)
[2018-02-07 06:16] LABS: % EOSINOPHILS 7.2 % (0.0-5.0); % LYMPHOCYTES 20.3 % (20.0-50.0); % MONOCYTES 8.7 % (2.0-10.0); % NEUTROPHILS 63.8 % (40.0-80.0); EOSINOPHILE ABSOLUTE 0.7 Th/cmm (0.1-0.4); HEMATOCRIT 36.5 % (41.0-60); LYMPHOCYTE ABSOLUTE 2.1 Th/cmm (1.5-3.0); MEAN CELL VOLUME 92.6 fl (80-99); MEAN CORPUSCULAR HEMOGLOBIN 30.5 pg (27.0-31.0); MEAN CORPUSCULAR HGB CONC 32.9 pg (28.0-36.0); MEAN PLATELET VOLUME 6.9 fl; MONOCYTE ABSOLUTE 0.9 Th/cmm (0.3-1.0); NEUTROPHILE ABSOLUTE 6.4 Th/cmm (1.8-8.0); PLATELET COUNT 331 Th/cmm (150-400); RED BLOOD COUNT 3.94 Mil/cmm (3.80-5.80); RED CELL DISTRIBUTION WIDTH 14.7 % (11.5-20.0); WHITE BLOOD COUNT 10.1 Th/cmm (4.8-10.8)
[2018-02-07 06:21] LABS: CREATININE - SERUM 4.4 mg/dL (0.7-1.3)
[2018-02-07] MEDS: Ipratropium Neb 0.5 mg/2.5 mL UD HHN SCH ×3 (07:18→19:04)
--- NOTE | 2018-02-07 09:08 | Diagnostic Imaging Report ---
CHEST X-RAY: AP view INDICATION: Shortness of breath COMPARISON: 02/06/2018 FINDINGS: Support devices including right-sided chest tube are stable. Right pneumothorax is again noted with right pleural effusion. Cardiomegaly is noted. IMPRESSION: Persistent right-sided hydropneumothorax. Stable right chest tube abutting the right mediastinal border. Note, pneumonia of the right lung cannot be excluded.
[2018-02-07] MEDS: Lactobacillus Rhamnosus GG 15 Billion CFU CAP.SPRINK PO SCH (09:52)
[2018-02-07] MEDS: Vitamin B Complex w/Vitamin C Tab PO SCH (09:52)
--- NOTE | 2018-02-07 13:09 | General Progress Note ---
Subjective - Review of Systems Service Date: 02/07/18 Subjective: feels ok, comfortable Objective - Results Result Diagrams: 02/07/18 05:30 02/07/18 05:30 Recent Labs: Laboratory Last Values WBC 10.1 Th/cmm (4.8-10.8) 02/07/18 05:30 RBC 3.94 Mil/cmm (3.80-5.80) 02/07/18 05:30 Hgb 12.0 gm/dL (12-16) 02/07/18 05:30 Hct 36.5 % (41.0-60) L 02/07/18 05:30 MCV 92.6 fl (80-99) 02/07/18 05:30 MCH 30.5 pg (27.0-31.0) 02/07/18 05:30 MCHC Differential 32.9 pg (28.0-36.0) 02/07/18 05:30 RDW 14.7 % (11.5-20.0) 02/07/18 05:30 Plt Count 331 Th/cmm (150-400) 02/07/18 05:30 MPV 6.9 fl 02/07/18 05:30 Neutrophils % 63.8 % (40.0-80.0) 02/07/18 05:30 Lymphocytes % 20.3 % (20.0-50.0) 02/07/18 05:30 Monocytes % 8.7 % (2.0-10.0) 02/07/18 05:30 Eosinophils % 7.2 % (0.0-5.0) H 02/07/18 05:30 Basophils % 0.0 % (0.0-2.0) 02/07/18 05:30 ESR 87 mm/hr (0-20) H 01/31/18 04:15 PT 9.9 SECONDS (9.5-11.5) 01/29/18 16:42 INR 0.95 (0.5-1.4) 01/29/18 16:42 PTT (Actin FS) 29.9 SECONDS (26.0-38.0) 01/29/18 16:42 Sodium 136 mEq/L (136-145) 02/07/18 05:30 Potassium 3.8 mEq/L (3.5-5.1) 02/07/18 05:30 Chloride 104 mEq/L (98-107) 02/07/18 05:30 Carbon Dioxide 27.3 mEq/L (21.0-31.0) 02/07/18 05:30 Anion Gap 8.5 (7.0-16.0) 02/07/18 05:30 BUN 12 mg/dL (7-25) 02/07/18 05:30 Creatinine 4.4 mg/dL (0.7-1.3) H* 02/07/18 05:30 Est GFR ( Amer) 17.4 ml/min (>90) 02/07/18 05:30 Est GFR (Non-Af Amer) 14.4 ml/min 02/07/18 05:30 BUN/Creatinine Ratio 2.7 02/07/18 05:30 Glucose 86 mg/dL (70-105) 02/07/18 05:30 POC Glucose 125 MG/DL (70 - 105) H 02/05/18 12:10 Hemoglobin A1c % 3.5 % (4.0-6.0) L 01/31/18 04:15 Whole Bld Lactic Acid 0.55 mmol/L (0.60-1.99) L 01/29/18 16:42 Calcium 8.6 mg/dL (8.6-10.3) 02/07/18 05:30 Phosphorus 4.1 mg/dL (2.5-5.0) 01/31/18 04:15 Magnesium 1.8 mg/dL (1.9-2.7) L 02/07/18 05:30 Total Bilirubin 0.3 mg/dL (0.3-1.0) 02/06/18 05:35 AST 12 U/L (13-39) L 02/06/18 05:35 ALT 4 U/L (7-52) L 02/06/18 05:35 Alkaline Phosphatase 53 U/L (34-104) 02/06/18 05:35 Creatine Kinase 12 U/L (30-223) L 01/29/18 16:42 Troponin I 0.02 ng/mL (0.01-0.05) 01/29/18 16:42 C-Reactive Protein 11.4 mg/dL (0.0-0.9) H 01/31/18 04:15 Total Protein 5.9 gm/dL (6.0-8.3) L 02/06/18 05:35 Albumin 2.1 gm/dL (4.2-5.5) L 02/06/18 05:35 Globulin 3.8 gm/dL 02/06/18 05:35 Albumin/Globulin Ratio 0.6 (1.0-1.8) L 02/06/18 05:35 Triglycerides 72 mg/dL (<150) 01/31/18 04:15 Cholesterol 97 mg/dL (<200) 01/31/18 04:15 LDL Cholesterol Direct 45 mg/dL (75-193) L 01/31/18 04:15 HDL Cholesterol 36 mg/dL (23-92) 01/31/18 04:15 TSH 2.15 uIU/ml (0.34-5.60) 01/31/18 04:15 PTH Intact 36 pg/mL (15-65) 02/01/18 05:22 Urine Source MIDSTREAM 01/29/18 22:30 Urine Color YELLOW 01/29/18 22:30 Urine Clarity HAZY (CLEAR) 01/29/18 22:30 Urine pH 8.5 (4.6 - 8.0) 01/29/18 22:30 Ur Specific [place] 1.015 (1.005-1.030) 01/29/18 22:30 Urine Protein 100 mg/dL (NEGATIVE) H 01/29/18 22:30 Urine Glucose (UA) NEGATIVE mg/dL (NEGATIVE) 01/29/18 22:30 Urine Ketones NEGATIVE mg/dL (NEGATIVE) 01/29/18 22:30 Urine Blood MODERATE (NEGATIVE) H 01/29/18 22:30 Urine Nitrate NEGATIVE (NEGATIVE) 01/29/18 22:30 Urine Bilirubin NEGATIVE (NEGATIVE) 01/29/18 22:30 Urine Urobilinogen 0.2 E.U./dL (0.2 - 1.0) 01/29/18 22:30 Ur Leukocyte Esterase LARGE (NEGATIVE) H 01/29/18 22:30 Urine RBC 2-5 /hpf (0-5) H 01/29/18 22:30 Urine WBC >100 /hpf (0-5) H 01/29/18 22:30 Ur Epithelial Cells FEW /lpf (FEW) 01/29/18 22:30 Urine Bacteria MANY /hpf (NONE SEEN) H 01/29/18 22:30 Fluid Source PLEURAL 02/01/18 11:00 Fluid Color PALE YELLOW 02/01/18 11:00 Fluid Appearance HAZY 02/01/18 11:00 Fluid WBC 149 /cumm 02/01/18 11:00 Fluid RBC 185 /cumm 02/01/18 11:00 Fluid Neutrophils 2 % 02/01/18 11:00 Fluid Lymphocytes 50 % 02/01/18 11:00 Fluid Monocytes 48 % 02/01/18 11:00 Fluid Glucose 75.0 mg/dL 02/01/18 11:00 Fluid Total Protein 2.3 g/dL 02/01/18 11:00 Fluid Amylase 61 U/L 02/01/18 11:00 Random Vancomycin 22.5 ug/mL (5.0-40.0) 02/04/18 05:52 - Physical Exam Vitals and I&O: Vital Signs Temp 96.5 F 02/07/18 11:53 Pulse 56 02/07/18 11:53 Resp 19 02/07/18 11:53 BP 145/72 02/07/18 11:53 Pulse Ox 100 02/07/18 11:53 Intake & Output 02/06/18 02/07/18 02/07/18 18:59 06:59 18:59 Intake Total 350 150 Output Total 300 2500 Balance 50 -2350 Weight (lbs) 74.389 kg 71.894 kg 71.668 kg Intake: Intake, IV Amount 50 cefTRIAXone 1 gm In 50 Sodium Chloride 0.9% 50 ml @ 100 mls/hr IV Q24HR [facility] Rx#:[id number] Oral 300 150 Output: Urine 300 Hemodialysis 2500 Other: # Voids 0 # Bowel Movements 0 Weight Source Bedscale Bedscale Bedscale Active Medications: Current Medications Acetaminophen (Tylenol) 650 mg PO Q6HR PRN PRN Reason: PAIN Stop: 03/30/18 23:07 Acetaminophen/Hydrocodone Bitart (Barton 5mg/325mg) 2 tab PO Q4H PRN PRN Reason: Pain (Moderate) Stop: 03/30/18 23:16 Last Admin: 02/07/18 04:10 Dose: 2 tab Acetylcysteine (Mucomyst 20%) 2 ml HHN Q4HRT AMANDA Stop: 03/31/18 14:59 Last Admin: 02/07/18 07:18 Dose: Not Given Albuterol Sulfate (Albuterol 2.5mg/3ml Neb Ud) 2.5 mg HHN Q1H PRN PRN Reason: Respiratory Distress Stop: 03/31/18 07:59 Last Admin: 02/01/18 15:33 Dose: 2.5 mg Albuterol/Ipratropium (Duoneb Neb) 3 ml HHN Q4HRT AMANDA Stop: 03/31/18 14:59 Last Admin: 02/07/18 10:57 Dose: 3 ml Atorvastatin Calcium (Lipitor) 40 mg PO HS [facility]ANDA Stop: 03/31/18 20:59 Last Admin: 02/06/18 22:00 Dose: 40 mg Cinacalcet (Sensipar) 30 mg PO DAILY [facility]AN[facility] Stop: 03/31/18 08:59 Last Admin: 02/07/18 09:57 Dose: Not Given Diclofenac Sodium (Voltaren) 50 mg PO BID [facility] Stop: 04/01/18 08:59 Last Admin: 02/07/18 09:51 Dose: 50 mg Docusate Sodium (Colace) 100 mg PO DAILY [facility] Stop: 03/31/18 08:59 Last Admin: 02/07/18 09:51 Dose: 100 mg Epoetin Vishal (Epogen) 10,000 units SUBQ MWF@1600 [facility] Stop: 04/01/18 15:59 Last Admin: 02/05/18 19:06 Dose: Not Given Furosemide (Lasix) 40 mg PO DAILY [facility] Stop: 03/31/18 08:59 Last Admin: 02/07/18 09:51 Dose: 40 mg Ceftriaxone Sodium 1 gm/ (Sodium Chloride) 50 mls @ 100 mls/hr IV Q24HR [facility] Stop: 03/31/18 18:59 Last Infusion: 02/06/18 18:30 Dose: Infused Ipratropium [place] (Atrovent Neb 0.5mg/2.5ml) 0.5 mg HHN Q6HRT [facility] Stop: 03/31/18 12:59 Last Admin: 02/07/18 07:18 Dose: Not Given Lactobacillus Rhamnosus (Culturelle 15b) 1 each PO DAILY [facility] Stop: 03/30/18 23:14 Last Admin: 02/07/18 09:52 Dose: 1 each Megestrol Acetate (Megace) 400 mg PO DAILY AMANDA PRN Reason: Protocol Stop: 03/31/18 08:59 Last Admin: 02/07/18 09:58 Dose: Not Given Metoprolol Tartrate (Lopressor) 50 mg PO BID [facility] Stop: 03/30/18 23:14 Last Admin: 02/07/18 09:52 Dose: 50 mg Midodrine (Proamatine) 5 mg PO TID PRN PRN Reason: HYPOTENSION Stop: 03/30/18 23:07 Miscellaneous (Probiotic Screen) 1 ea MC PRN PRN PRN Reason: PROTOCOL Stop: 04/03/18 13:08 Miscellaneous (Clinical Monitoring) 1 ea MC DAILY PRN PRN Reason: RENAL Stop: 04/08/18 08:30 Morphine Sulfate (Morphine) 1 mg IVP Q4HR PRN PRN Reason: Pain (Severe) Stop: 03/30/18 23:17 Last Admin: 02/05/18 18:36 Dose: 1 mg Mupirocin (Bactroban Oint) 1 appl NS BID [facility] Stop: 02/11/18 17:01 Last Admin: 02/07/18 10:39 Dose: 1 appl Sevelamer Carbonate (Renvela) 800 mg PO TID [facility] Stop: 03/30/18 23:14 Last Admin: 02/07/18 09:58 Dose: Not Given Vitamin B Complex/Vit C/Folic Acid (Vitamin B Complex W/Vitamin C) 1 tab PO DAILY [facility] Stop: 03/31/18 08:59 Last Admin: 02/07/18 09:52 Dose: 1 tab General: Alert, Oriented x3, Cooperative, No acute distress HEENT: Atraumatic, PERRLA, EOMI, Mucous membr. moist/pink Neck: Supple, +2 carotid pulse wo bruit Cardiovascular: Regular rate, Normal S1, Normal S2 Lungs: Other (increased BS right lung field, (+) PleurX tube) Abdomen: Bowel sounds, Soft Extremities: no Edema Neurological: Sensation intact Skin: no Rash Psych/Mental Status: Mood NL - Procedures Procedures: Procedures Procedure Code Date DRAINAGE OF R PLEURAL CAV WITH DRAIN DEV, PERC APPROACH [id number] 01/29/18 Assessment/Plan - Problem List Patient Problems: All Active Problems RIGHT FACIAL SWELLING AND PAIN (Acute) - Assessment Assessment: ESRD on HD Right facial cellulitis Right lung opacification 2/2 effusion S/P PleurX tube Cx UTI T2DM Anemia of CD - Plan Plan: Lab - Result Diagrams 01/31/18 04:15 01/31/18 04:15 Current Medications Acetaminophen (Tylenol) 650 mg PO Q6HR PRN PRN Reason: PAIN Stop: 03/30/18 23:07 Acetaminophen/Hydrocodone Bitart (Barton 5mg/325mg) 2 tab PO Q4H PRN PRN Reason: Pain (Moderate) Stop: 03/30/18 23:16 Last Admin: 01/29/18 23:29 Dose: 2 tab Acetylcysteine (Mucomyst 20%) 2 ml HHN Q4HRT [facility] Stop: 03/31/18 14:59 Last Admin: 01/31/18 11:27 Dose: 2 ml Albuterol Sulfate (Albuterol 2.5mg/3ml Neb Ud) 2.5 mg HHN Q1H PRN PRN Reason: Respiratory Distress Stop: 03/31/18 07:59 Albuterol/Ipratropium (Duoneb Neb) 3 ml HHN Q4HRT [facility] Stop: 03/31/18 14:59 Last Admin: 01/31/18 11:27 Dose: 3 ml Atorvastatin Calcium (Lipitor) 40 mg PO HS [facility] Stop: 03/31/18 20:59 Last Admin: 01/30/18 21:19 Dose: 40 mg Cinacalcet (Sensipar) 30 mg PO DAILY [facility] Stop: 03/31/18 08:59 Last Admin: 01/31/18 08:28 Dose: Not Given Diclofenac Sodium (Voltaren) 50 mg PO BID [facility] Stop: 04/01/18 08:59 Last Admin: 01/31/18 08:25 Dose: 50 mg Docusate Sodium (Colace) 100 mg PO DAILY [facility] Stop: 03/31/18 08:59 Last Admin: 01/31/18 08:26 Dose: 100 mg Epoetin Vishal (Epogen) 10,000 units SUBQ MWF@1600 [facility] Stop: 04/01/18 15:59 Furosemide (Lasix) 40 mg PO DAILY [facility] Stop: 03/31/18 08:59 Last Admin: 01/31/18 08:26 Dose: 40 mg Heparin Sodium (Porcine) (Heparin) 5,000 units IVP ONCE@2100 [facility] Stop: 01/31/18 21:01 Last Admin: 01/30/18 21:18 Dose: 5,000 units Ceftriaxone Sodium 1 gm/ (Sodium Chloride) 50 mls @ 100 mls/hr IV Q24HR [facility] Stop: 03/31/18 18:59 Last Infusion: 01/30/18 21:50 Dose: Infused Ipratropium [place] (Atrovent Neb 0.5mg/2.5ml) 0.5 mg HHN Q6HRT [facility] Stop: 03/31/18 12:59 Last Admin: 01/31/18 00:57 Dose: Not Given Lactobacillus Rhamnosus (Culturelle 15b) 1 each PO DAILY [facility] Stop: 03/30/18 23:14 Last Admin: 01/31/18 08:27 Dose: 1 each Megestrol Acetate (Megace) 400 mg PO DAILY [facility] PRN Reason: Protocol Stop: 03/31/18 08:59 Last Admin: 01/31/18 09:31 Dose: Not Given Metoprolol Tartrate (Lopressor) 50 mg PO BID [facility] Stop: 03/30/18 23:14 Last Admin: 01/31/18 08:27 Dose: 50 mg Midodrine (Proamatine) 5 mg PO TID PRN PRN Reason: HYPOTENSION Stop: 03/30/18 23:07 Miscellaneous (Vancomycin Iv Per Pharmacy) 1 ea MC PRN [facility] Stop: 03/30/18 21:44 Morphine Sulfate (Morphine) 1 mg IVP Q4HR PRN PRN Reason: Pain (Severe) Stop: 03/30/18 23:17 Last Admin: 01/31/18 08:17 Dose: 1 mg Sevelamer Carbonate (Renvela) 800 mg PO TID [facility] Stop: 03/30/18 23:14 Last Admin: 01/31/18 08:28 Dose: 800 mg Vitamin B Complex/Vit C/Folic Acid (Vitamin B Complex W/Vitamin C) 1 tab PO DAILY [facility] Stop: 03/31/18 08:59 Last Admin: 01/31/18 08:28 Dose: 1 t Lab - Result Diagrams 02/07/18 05:30 02/07/18 05:30 scheduled for HD tomorrow just had PleurX placed, suction now working CT scan chest revealed large right effusion 2/2 compatible ATx & collapse right lung ? PNA continue Rocephin WBC @ 10.1 Nutritional Asmnt/Malnutr-PDOC - Dietary Evaluation Malnutrition Findings (Please click <Entered> for more info): Nutritional Asmnt/Malnutrition Start: 02/03/18 12: 10 Text: Status: Complete Freq: Document 02/03/18 12:10 JENNARAUL (Rec: 02/03/18 12:31 RICO IMAN- [email or web address]) Nutritional Asmnt/Malnutrition Patient General Information Nutritional Screening Moderate Risk Diagnosis Rt facuial cellulitis, rt pleural effusion Pertinent Medical Hx/Surgical Hx ESRD on dialysis x 7 years, COPD, hyperlipidemia, Type 2 diabetes Subjective Information Per H&P, patient was on peritoneal dialysis up to a few months ago when he was diagnosed with peritonitis ( now on HD TTS). Per nursing notes, pt refusing some medications. Diet education not appropriate at this time. Current Diet Order/ Nutrition Support 60 gm CCHO, 1200 ml fluid restriction Patient / S.O Not Indicated Pertinent Medications lipitor, Sensipar, colace, lasix, Epogen, Megacem abx, Renvela, Vitamin B complex with C Pertinent Labs ((02/02) Cr 4.5, Ca 8.5, albumin 24 Nutritional Hx/Data Height 1.68 m Height (Calculated Centimeters) 167.6 Current Weight (lbs) 79.379 kg Weight (Calculated Kilograms) 79.4 Weight (Calculated Grams) 87969.7 [place] Body Weight 142 % [place] Body Weight 123 Body Mass Index (BMI) 28.2 Recent Weight Change No Weight Status Overweight GI Symptoms GI Symptoms None Last BM 02/02 x 1 Difficult in: None Food Allergies No Cultural/Ethnic/Oriental Orthodox Belief none indicated Usual diet at home unknown Skin Integrity/Comment: Ba 15, cellulitis facial Current %PO Good (75-100%) Estimated Nutritional Goals BEE in Kcals: Adj wt of IBW Calories/Kcals/Kg 27-32 kcal/kg using 68.2 kg Adj wt Kcals Calculated [id number] kcal/day Protein: Adj wt of IBW Protein g/k.2-1.5 gm/kg (HD) Protein Calculated 80-100 gm/day Fluid: ml Per MD due to HD Nutritional Problem 1. Problem Problem Increased nutrient needs related to Etiology impaired skin integrity/ dialysis aeb Signs/Symptoms: Facial cellulitis and on HD Intervention/Recommendation Comments Consider modifying diet to 2gm sodium. Glucose/HG1AC low, no need for Diabetic restriction . Continue to monitor K and Phosphorus levels and need for Renal diet (not needed at this time.) Consider Prosource with meals for added protein due to cellulitis and HD. Expected Outcomes/Goals Expected Outcomes/Goals oral intake to meet >75% of nutrient needs, nutritino related labs normalize, weight stable.
--- NOTE | 2018-02-07 14:35 | General Progress Note ---
Subjective - Review of Systems Service Date: 02/07/18 Events since last encounter: CT drainage about 1000 cc per day still has pneumo but patient has no SOB Objective - Results Result Diagrams: 02/07/18 05:30 02/07/18 05:30 Recent Labs: Laboratory Last Values WBC 10.1 Th/cmm (4.8-10.8) 02/07/18 05:30 RBC 3.94 Mil/cmm (3.80-5.80) 02/07/18 05:30 Hgb 12.0 gm/dL (12-16) 02/07/18 05:30 Hct 36.5 % (41.0-60) L 02/07/18 05:30 MCV 92.6 fl (80-99) 02/07/18 05:30 MCH 30.5 pg (27.0-31.0) 02/07/18 05:30 MCHC Differential 32.9 pg (28.0-36.0) 02/07/18 05:30 RDW 14.7 % (11.5-20.0) 02/07/18 05:30 Plt Count 331 Th/cmm (150-400) 02/07/18 05:30 MPV 6.9 fl 02/07/18 05:30 Neutrophils % 63.8 % (40.0-80.0) 02/07/18 05:30 Lymphocytes % 20.3 % (20.0-50.0) 02/07/18 05:30 Monocytes % 8.7 % (2.0-10.0) 02/07/18 05:30 Eosinophils % 7.2 % (0.0-5.0) H 02/07/18 05:30 Basophils % 0.0 % (0.0-2.0) 02/07/18 05:30 ESR 87 mm/hr (0-20) H 01/31/18 04:15 PT 9.9 SECONDS (9.5-11.5) 01/29/18 16:42 INR 0.95 (0.5-1.4) 01/29/18 16:42 PTT (Actin FS) 29.9 SECONDS (26.0-38.0) 01/29/18 16:42 Sodium 136 mEq/L (136-145) 02/07/18 05:30 Potassium 3.8 mEq/L (3.5-5.1) 02/07/18 05:30 Chloride 104 mEq/L (98-107) 02/07/18 05:30 Carbon Dioxide 27.3 mEq/L (21.0-31.0) 02/07/18 05:30 Anion Gap 8.5 (7.0-16.0) 02/07/18 05:30 BUN 12 mg/dL (7-25) 02/07/18 05:30 Creatinine 4.4 mg/dL (0.7-1.3) H* 02/07/18 05:30 Est GFR ( Amer) 17.4 ml/min (>90) 02/07/18 05:30 Est GFR (Non-Af Amer) 14.4 ml/min 02/07/18 05:30 BUN/Creatinine Ratio 2.7 02/07/18 05:30 Glucose 86 mg/dL (70-105) 02/07/18 05:30 POC Glucose 125 MG/DL (70 - 105) H 02/05/18 12:10 Hemoglobin A1c % 3.5 % (4.0-6.0) L 01/31/18 04:15 Whole Bld Lactic Acid 0.55 mmol/L (0.60-1.99) L 01/29/18 16:42 Calcium 8.6 mg/dL (8.6-10.3) 02/07/18 05:30 Phosphorus 4.1 mg/dL (2.5-5.0) 01/31/18 04:15 Magnesium 1.8 mg/dL (1.9-2.7) L 02/07/18 05:30 Total Bilirubin 0.3 mg/dL (0.3-1.0) 02/06/18 05:35 AST 12 U/L (13-39) L 02/06/18 05:35 ALT 4 U/L (7-52) L 02/06/18 05:35 Alkaline Phosphatase 53 U/L (34-104) 02/06/18 05:35 Creatine Kinase 12 U/L (30-223) L 01/29/18 16:42 Troponin I 0.02 ng/mL (0.01-0.05) 01/29/18 16:42 C-Reactive Protein 11.4 mg/dL (0.0-0.9) H 01/31/18 04:15 Total Protein 5.9 gm/dL (6.0-8.3) L 02/06/18 05:35 Albumin 2.1 gm/dL (4.2-5.5) L 02/06/18 05:35 Globulin 3.8 gm/dL 02/06/18 05:35 Albumin/Globulin Ratio 0.6 (1.0-1.8) L 02/06/18 05:35 Triglycerides 72 mg/dL (<150) 01/31/18 04:15 Cholesterol 97 mg/dL (<200) 01/31/18 04:15 LDL Cholesterol Direct 45 mg/dL (75-193) L 01/31/18 04:15 HDL Cholesterol 36 mg/dL (23-92) 01/31/18 04:15 TSH 2.15 uIU/ml (0.34-5.60) 01/31/18 04:15 PTH Intact 36 pg/mL (15-65) 02/01/18 05:22 Urine Source MIDSTREAM 01/29/18 22:30 Urine Color YELLOW 01/29/18 22:30 Urine Clarity HAZY (CLEAR) 01/29/18 22:30 Urine pH 8.5 (4.6 - 8.0) 01/29/18 22:30 Ur Specific [place] 1.015 (1.005-1.030) 01/29/18 22:30 Urine Protein 100 mg/dL (NEGATIVE) H 01/29/18 22:30 Urine Glucose (UA) NEGATIVE mg/dL (NEGATIVE) 01/29/18 22:30 Urine Ketones NEGATIVE mg/dL (NEGATIVE) 01/29/18 22:30 Urine Blood MODERATE (NEGATIVE) H 01/29/18 22:30 Urine Nitrate NEGATIVE (NEGATIVE) 01/29/18 22:30 Urine Bilirubin NEGATIVE (NEGATIVE) 01/29/18 22:30 Urine Urobilinogen 0.2 E.U./dL (0.2 - 1.0) 01/29/18 22:30 Ur Leukocyte Esterase LARGE (NEGATIVE) H 01/29/18 22:30 Urine RBC 2-5 /hpf (0-5) H 01/29/18 22:30 Urine WBC >100 /hpf (0-5) H 01/29/18 22:30 Ur Epithelial Cells FEW /lpf (FEW) 01/29/18 22:30 Urine Bacteria MANY /hpf (NONE SEEN) H 01/29/18 22:30 Fluid Source PLEURAL 02/01/18 11:00 Fluid Color PALE YELLOW 02/01/18 11:00 Fluid Appearance HAZY 02/01/18 11:00 Fluid WBC 149 /cumm 02/01/18 11:00 Fluid RBC 185 /cumm 02/01/18 11:00 Fluid Neutrophils 2 % 02/01/18 11:00 Fluid Lymphocytes 50 % 02/01/18 11:00 Fluid Monocytes 48 % 02/01/18 11:00 Fluid Glucose 75.0 mg/dL 02/01/18 11:00 Fluid Total Protein 2.3 g/dL 02/01/18 11:00 Fluid Amylase 61 U/L 02/01/18 11:00 Random Vancomycin 22.5 ug/mL (5.0-40.0) 02/04/18 05:52 - Physical Exam Vitals and I&O: Vital Signs Temp 96.5 F 02/07/18 11:53 Pulse 67 02/07/18 14:04 Resp 18 02/07/18 14:04 BP 145/72 02/07/18 11:53 Pulse Ox 98 02/07/18 14:04 Intake & Output 02/06/18 02/07/18 02/07/18 18:59 06:59 18:59 Intake Total 350 150 Output Total 300 2500 Balance 50 -2350 Weight (lbs) 74.389 kg 71.894 kg 71.668 kg Intake: Intake, IV Amount 50 cefTRIAXone 1 gm In 50 Sodium Chloride 0.9% 50 ml @ 100 mls/hr IV Q24HR [facility] Rx#:[id number] Oral 300 150 Output: Urine 300 Hemodialysis 2500 Other: # Voids 0 # Bowel Movements 0 Weight Source Bedscale Bedscale Bedscale Active Medications: Current Medications Acetaminophen (Tylenol) 650 mg PO Q6HR PRN PRN Reason: PAIN Stop: 03/30/18 23:07 Acetaminophen/Hydrocodone Bitart ([place] 5mg/325mg) 2 tab PO Q4H PRN PRN Reason: Pain (Moderate) Stop: 03/30/18 23:16 Last Admin: 02/07/18 04:10 Dose: 2 tab Acetylcysteine (Mucomyst 20%) 2 ml HHN Q4HRT [facility]ANDA Stop: 03/31/18 14:59 Last Admin: 02/07/18 14:04 Dose: Not Given Albuterol Sulfate (Albuterol 2.5mg/3ml Neb Ud) 2.5 mg HHN Q1H PRN PRN Reason: Respiratory Distress Stop: 03/31/18 07:59 Last Admin: 02/01/18 15:33 Dose: 2.5 mg Albuterol/Ipratropium (Duoneb Neb) 3 ml HHN Q4HRT [facility] Stop: 03/31/18 14:59 Last Admin: 02/07/18 14:03 Dose: 3 ml Atorvastatin Calcium (Lipitor) 40 mg PO HS [facility] Stop: 03/31/18 20:59 Last Admin: 02/06/18 22:00 Dose: 40 mg Cinacalcet (Sensipar) 30 mg PO DAILY [facility] Stop: 03/31/18 08:59 Last Admin: 02/07/18 09:57 Dose: Not Given Diclofenac Sodium (Voltaren) 50 mg PO BID [facility] Stop: 04/01/18 08:59 Last Admin: 02/07/18 09:51 Dose: 50 mg Docusate Sodium (Colace) 100 mg PO DAILY [facility] Stop: 03/31/18 08:59 Last Admin: 02/07/18 09:51 Dose: 100 mg Epoetin Vishal (Epogen) 10,000 units SUBQ MWF@1600 [facility] Stop: 04/01/18 15:59 Last Admin: 02/05/18 19:06 Dose: Not Given Furosemide (Lasix) 40 mg PO DAILY [facility] Stop: 03/31/18 08:59 Last Admin: 02/07/18 09:51 Dose: 40 mg Ceftriaxone Sodium 1 gm/ (Sodium Chloride) 50 mls @ 100 mls/hr IV Q24HR [facility] Stop: 03/31/18 18:59 Last Infusion: 02/06/18 18:30 Dose: Infused Ipratropium [place] (Atrovent Neb 0.5mg/2.5ml) 0.5 mg HHN Q6HRT [facility] Stop: 03/31/18 12:59 Last Admin: 02/07/18 14:04 Dose: Not Given Lactobacillus Rhamnosus (Culturelle 15b) 1 each PO DAILY [facility] Stop: 03/30/18 23:14 Last Admin: 02/07/18 09:52 Dose: 1 each Megestrol Acetate (Megace) 400 mg PO DAILY [facility] PRN Reason: Protocol Stop: 03/31/18 08:59 Last Admin: 02/07/18 09:58 Dose: Not Given Metoprolol Tartrate (Lopressor) 50 mg PO BID [facility] Stop: 03/30/18 23:14 Last Admin: 02/07/18 09:52 Dose: 50 mg Midodrine (Proamatine) 5 mg PO TID PRN PRN Reason: HYPOTENSION Stop: 03/30/18 23:07 Miscellaneous (Probiotic Screen) 1 ea MC PRN PRN PRN Reason: PROTOCOL Stop: 04/03/18 13:08 Miscellaneous (Clinical Monitoring) 1 ea MC DAILY PRN PRN Reason: RENAL Stop: 04/08/18 08:30 Morphine Sulfate (Morphine) 1 mg IVP Q4HR PRN PRN Reason: Pain (Severe) Stop: 03/30/18 23:17 Last Admin: 02/05/18 18:36 Dose: 1 mg Mupirocin (Bactroban Oint) 1 appl NS BID [facility] Stop: 02/11/18 17:01 Last Admin: 02/07/18 10:39 Dose: 1 appl Sevelamer Carbonate (Renvela) 800 mg PO TID [facility] Stop: 03/30/18 23:14 Last Admin: 02/07/18 09:58 Dose: Not Given Vitamin B Complex/Vit C/Folic Acid (Vitamin B Complex W/Vitamin C) 1 tab PO DAILY [facility] Stop: 03/31/18 08:59 Last Admin: 02/07/18 09:52 Dose: 1 tab General: Alert, Oriented x3, Cooperative, No acute distress HEENT: Atraumatic, PERRLA, EOMI, Mucous membr. moist/pink Neck: Supple, +2 carotid pulse wo bruit Cardiovascular: Regular rate, Normal S1, Normal S2 Lungs: Other (increased BS right lung field, (+) PleurX tube) Abdomen: Bowel sounds, Soft Extremities: no Edema Neurological: Sensation intact Skin: no Rash Psych/Mental Status: Mood NL - Procedures Procedures: Procedures Procedure Code Date DRAINAGE OF R PLEURAL CAV WITH DRAIN DEV, PERC APPROACH [id number] 01/29/18 Assessment/Plan - Problem List Patient Problems: All Active Problems RIGHT FACIAL SWELLING AND PAIN (Acute) Nutritional Asmnt/Malnutr-PDOC - Dietary Evaluation Malnutrition Findings (Please click <Entered> for more info): Nutritional Asmnt/Malnutrition Start: 02/03/18 12: 10 Text: Status: Complete Freq: Document 02/03/18 12:10 RICO (Rec: 02/03/18 12:31 RICO IMAN- [email or web address]) Nutritional Asmnt/Malnutrition Patient General Information Nutritional Screening Moderate Risk Diagnosis Rt facuial cellulitis, rt pleural effusion Pertinent Medical Hx/Surgical Hx ESRD on dialysis x 7 years, COPD, hyperlipidemia, Type 2 diabetes Subjective Information Per H&P, patient was on peritoneal dialysis up to a few months ago when he was diagnosed with peritonitis ( now on HD TTS). Per nursing notes, pt refusing some medications. Diet education not appropriate at this time. Current Diet Order/ Nutrition Support 60 gm CCHO, 1200 ml fluid restriction Patient / S.O Not Indicated Pertinent Medications lipitor, Sensipar, colace, lasix, Epogen, Megacem abx, Renvela, Vitamin B complex with C Pertinent Labs ((02/02) Cr 4.5, Ca 8.5, albumin 24 Nutritional Hx/Data Height 1.68 m Height (Calculated Centimeters) 167.6 Current Weight (lbs) 79.379 kg Weight (Calculated Kilograms) 79.4 Weight (Calculated Grams) 69090.7 [place] Body Weight 142 % [place] Body Weight 123 Body Mass Index (BMI) 28.2 Recent Weight Change No Weight Status Overweight GI Symptoms GI Symptoms None Last BM 02/02 x 1 Difficult in: None Food Allergies No Cultural/Ethnic/Quaker Belief none indicated Usual diet at home unknown Skin Integrity/Comment: Ba 15, cellulitis facial Current %PO Good (75-100%) Estimated Nutritional Goals BEE in Kcals: Adj wt of IBW Calories/Kcals/Kg 27-32 kcal/kg using 68.2 kg Adj wt Kcals Calculated 7834-0219 kcal/day Protein: Adj wt of IBW Protein g/k.2-1.5 gm/kg (HD) Protein Calculated 80-100 gm/day Fluid: ml Per MD due to HD Nutritional Problem 1. Problem Problem Increased nutrient needs related to Etiology impaired skin integrity/ dialysis aeb Signs/Symptoms: Facial cellulitis and on HD Intervention/Recommendation Comments Consider modifying diet to 2gm sodium. Glucose/HG1AC low, no need for Diabetic restriction . Continue to monitor K and Phosphorus levels and need for Renal diet (not needed at this time.) Consider Prosource with meals for added protein due to cellulitis and HD. Expected Outcomes/Goals Expected Outcomes/Goals oral intake to meet >75% of nutrient needs, nutritino related labs normalize, weight stable.
[2018-02-07] MEDS: Morphine Sulfate 4 mg/mL 1mL Syr IVP PRN (14:43)
[2018-02-07] MEDS: Epoetin Alfa 20000 Units/mL Vial SUBQ SCH (17:07)
[2018-02-07] MEDS: cefTRIAXone 1 GM in Sodium Chloride 0.9% 50 ML IV SCH (18:18)
[2018-02-08] MEDS: Ipratropium Neb 0.5 mg/2.5 mL UD HHN SCH ×4 (01:00→18:38)
[2018-02-08] MEDS: Albuterol/Ipratropium Neb 3 ML AERS HHN SCH ×6 (02:50→22:15)
[2018-02-08] MEDS: Lactobacillus Rhamnosus GG 15 Billion CFU CAP.SPRINK PO SCH (09:21)
[2018-02-08] MEDS: Vitamin B Complex w/Vitamin C Tab PO SCH (09:21)
--- NOTE | 2018-02-08 10:58 | Diagnostic Imaging Report ---
CHEST X-RAY: AP view INDICATION: Pneumothorax COMPARISON: 02/07/2018 FINDINGS: Right chest tube and right dialysis catheter stable. There is volume loss of the right lung with persistent right hydropneumothorax. Mild cardiomegaly is noted. IMPRESSION: Volume loss of the right lung with persistent right hydropneumothorax.
--- NOTE | 2018-02-08 12:00 | General Progress Note ---
Subjective - Review of Systems Service Date: 02/08/18 Events since last encounter: patient continues to drain serous fluid via PleurX but pneumothorax persists Plan: insert chest tube and cap PleuX tube Objective - Results Result Diagrams: 02/07/18 05:30 02/07/18 05:30 Recent Labs: Laboratory Last Values WBC 10.1 Th/cmm (4.8-10.8) 02/07/18 05:30 RBC 3.94 Mil/cmm (3.80-5.80) 02/07/18 05:30 Hgb 12.0 gm/dL (12-16) 02/07/18 05:30 Hct 36.5 % (41.0-60) L 02/07/18 05:30 MCV 92.6 fl (80-99) 02/07/18 05:30 MCH 30.5 pg (27.0-31.0) 02/07/18 05:30 MCHC Differential 32.9 pg (28.0-36.0) 02/07/18 05:30 RDW 14.7 % (11.5-20.0) 02/07/18 05:30 Plt Count 331 Th/cmm (150-400) 02/07/18 05:30 MPV 6.9 fl 02/07/18 05:30 Neutrophils % 63.8 % (40.0-80.0) 02/07/18 05:30 Lymphocytes % 20.3 % (20.0-50.0) 02/07/18 05:30 Monocytes % 8.7 % (2.0-10.0) 02/07/18 05:30 Eosinophils % 7.2 % (0.0-5.0) H 02/07/18 05:30 Basophils % 0.0 % (0.0-2.0) 02/07/18 05:30 ESR 87 mm/hr (0-20) H 01/31/18 04:15 PT 9.9 SECONDS (9.5-11.5) 01/29/18 16:42 INR 0.95 (0.5-1.4) 01/29/18 16:42 PTT (Actin FS) 29.9 SECONDS (26.0-38.0) 01/29/18 16:42 Sodium 136 mEq/L (136-145) 02/07/18 05:30 Potassium 3.8 mEq/L (3.5-5.1) 02/07/18 05:30 Chloride 104 mEq/L (98-107) 02/07/18 05:30 Carbon Dioxide 27.3 mEq/L (21.0-31.0) 02/07/18 05:30 Anion Gap 8.5 (7.0-16.0) 02/07/18 05:30 BUN 12 mg/dL (7-25) 02/07/18 05:30 Creatinine 4.4 mg/dL (0.7-1.3) H* 02/07/18 05:30 Est GFR ( Amer) 17.4 ml/min (>90) 02/07/18 05:30 Est GFR (Non-Af Amer) 14.4 ml/min 02/07/18 05:30 BUN/Creatinine Ratio 2.7 02/07/18 05:30 Glucose 86 mg/dL (70-105) 02/07/18 05:30 POC Glucose 125 MG/DL (70 - 105) H 02/05/18 12:10 Hemoglobin A1c % 3.5 % (4.0-6.0) L 01/31/18 04:15 Whole Bld Lactic Acid 0.55 mmol/L (0.60-1.99) L 01/29/18 16:42 Calcium 8.6 mg/dL (8.6-10.3) 02/07/18 05:30 Phosphorus 4.1 mg/dL (2.5-5.0) 01/31/18 04:15 Magnesium 1.8 mg/dL (1.9-2.7) L 02/07/18 05:30 Total Bilirubin 0.3 mg/dL (0.3-1.0) 02/06/18 05:35 AST 12 U/L (13-39) L 02/06/18 05:35 ALT 4 U/L (7-52) L 02/06/18 05:35 Alkaline Phosphatase 53 U/L (34-104) 02/06/18 05:35 Creatine Kinase 12 U/L (30-223) L 01/29/18 16:42 Troponin I 0.02 ng/mL (0.01-0.05) 01/29/18 16:42 C-Reactive Protein 11.4 mg/dL (0.0-0.9) H 01/31/18 04:15 Total Protein 5.9 gm/dL (6.0-8.3) L 02/06/18 05:35 Albumin 2.1 gm/dL (4.2-5.5) L 02/06/18 05:35 Globulin 3.8 gm/dL 02/06/18 05:35 Albumin/Globulin Ratio 0.6 (1.0-1.8) L 02/06/18 05:35 Triglycerides 72 mg/dL (<150) 01/31/18 04:15 Cholesterol 97 mg/dL (<200) 01/31/18 04:15 LDL Cholesterol Direct 45 mg/dL (75-193) L 01/31/18 04:15 HDL Cholesterol 36 mg/dL (23-92) 01/31/18 04:15 TSH 2.15 uIU/ml (0.34-5.60) 01/31/18 04:15 PTH Intact 36 pg/mL (15-65) 02/01/18 05:22 Urine Source MIDSTREAM 01/29/18 22:30 Urine Color YELLOW 01/29/18 22:30 Urine Clarity HAZY (CLEAR) 01/29/18 22:30 Urine pH 8.5 (4.6 - 8.0) 01/29/18 22:30 Ur Specific [place] 1.015 (1.005-1.030) 01/29/18 22:30 Urine Protein 100 mg/dL (NEGATIVE) H 01/29/18 22:30 Urine Glucose (UA) NEGATIVE mg/dL (NEGATIVE) 01/29/18 22:30 Urine Ketones NEGATIVE mg/dL (NEGATIVE) 01/29/18 22:30 Urine Blood MODERATE (NEGATIVE) H 01/29/18 22:30 Urine Nitrate NEGATIVE (NEGATIVE) 01/29/18 22:30 Urine Bilirubin NEGATIVE (NEGATIVE) 01/29/18 22:30 Urine Urobilinogen 0.2 E.U./dL (0.2 - 1.0) 01/29/18 22:30 Ur Leukocyte Esterase LARGE (NEGATIVE) H 01/29/18 22:30 Urine RBC 2-5 /hpf (0-5) H 01/29/18 22:30 Urine WBC >100 /hpf (0-5) H 01/29/18 22:30 Ur Epithelial Cells FEW /lpf (FEW) 01/29/18 22:30 Urine Bacteria MANY /hpf (NONE SEEN) H 01/29/18 22:30 Fluid Source PLEURAL 02/01/18 11:00 Fluid Color PALE YELLOW 02/01/18 11:00 Fluid Appearance HAZY 02/01/18 11:00 Fluid WBC 149 /cumm 02/01/18 11:00 Fluid RBC 185 /cumm 02/01/18 11:00 Fluid Neutrophils 2 % 02/01/18 11:00 Fluid Lymphocytes 50 % 02/01/18 11:00 Fluid Monocytes 48 % 02/01/18 11:00 Fluid Glucose 75.0 mg/dL 02/01/18 11:00 Fluid Total Protein 2.3 g/dL 02/01/18 11:00 Fluid Amylase 61 U/L 02/01/18 11:00 Random Vancomycin 22.5 ug/mL (5.0-40.0) 02/04/18 05:52 - Physical Exam Vitals and I&O: Vital Signs Temp 96.5 F 02/08/18 09:38 Pulse 65 02/08/18 10:59 Resp 18 02/08/18 10:59 BP 120/61 02/08/18 09:38 Pulse Ox 98 02/08/18 10:59 Intake & Output 02/07/18 02/08/18 02/08/18 18:59 06:59 18:59 Intake Total 150 250 200 Output Total 2500 420 145 Balance -2350 -170 55 Weight (lbs) 71.668 kg 71.668 kg 71.214 kg Intake: Oral 150 250 200 Output: Chest Tube Drainage 420 Right Lower Anterior 420 Chest Hemodialysis 2500 Other 145 Other: # Voids 0 2 0 # Bowel Movements 0 0 0 Weight Source Bedscale Bedscale Bedscale Active Medications: Current Medications Acetaminophen (Tylenol) 650 mg PO Q6HR PRN PRN Reason: PAIN Stop: 03/30/18 23:07 Acetaminophen/Hydrocodone Bitart ([place] 5mg/325mg) 2 tab PO Q4H PRN PRN Reason: Pain (Moderate) Stop: 03/30/18 23:16 Last Admin: 02/07/18 04:10 Dose: 2 tab Acetylcysteine (Mucomyst 20%) 2 ml HHN Q4HRT [facility] Stop: 03/31/18 14:59 Last Admin: 02/08/18 07:18 Dose: Not Given Albuterol Sulfate (Albuterol 2.5mg/3ml Neb Ud) 2.5 mg HHN Q1H PRN PRN Reason: Respiratory Distress Stop: 03/31/18 07:59 Last Admin: 02/01/18 15:33 Dose: 2.5 mg Albuterol/Ipratropium (Duoneb Neb) 3 ml HHN Q4HRT [facility] Stop: 03/31/18 14:59 Last Admin: 02/08/18 10:59 Dose: 3 ml Atorvastatin Calcium (Lipitor) 40 mg PO HS [facility] Stop: 03/31/18 20:59 Last Admin: 02/07/18 21:54 Dose: 40 mg Cinacalcet (Sensipar) 30 mg PO DAILY [facility] Stop: 03/31/18 08:59 Last Admin: 02/08/18 09:20 Dose: Not Given Diclofenac Sodium (Voltaren) 50 mg PO BID [facility] Stop: 04/01/18 08:59 Last Admin: 02/08/18 09:20 Dose: Not Given Docusate Sodium (Colace) 100 mg PO DAILY [facility] Stop: 03/31/18 08:59 Last Admin: 02/08/18 09:20 Dose: Not Given Epoetin Vishal (Epogen) 10,000 units SUBQ MWF@1600 [facility] Stop: 04/01/18 15:59 Last Admin: 02/07/18 17:07 Dose: Not Given Furosemide (Lasix) 40 mg PO DAILY [facility] Stop: 03/31/18 08:59 Last Admin: 02/08/18 09:20 Dose: Not Given Ceftriaxone Sodium 1 gm/ (Sodium Chloride) 50 mls @ 100 mls/hr IV Q24HR [facility] Stop: 03/31/18 18:59 Last Admin: 02/07/18 18:18 Dose: 100 mls/hr Ipratropium [place] (Atrovent Neb 0.5mg/2.5ml) 0.5 mg HHN Q6HRT [facility] Stop: 03/31/18 12:59 Last Admin: 02/08/18 07:18 Dose: Not Given Lactobacillus Rhamnosus (Culturelle 15b) 1 each PO DAILY [facility] Stop: 03/30/18 23:14 Last Admin: 02/08/18 09:21 Dose: Not Given Megestrol Acetate (Megace) 400 mg PO DAILY [facility] PRN Reason: Protocol Stop: 03/31/18 08:59 Last Admin: 02/08/18 09:21 Dose: Not Given Metoprolol Tartrate (Lopressor) 50 mg PO BID [facility] Stop: 03/30/18 23:14 Last Admin: 02/08/18 09:21 Dose: Not Given Midodrine (Proamatine) 5 mg PO TID PRN PRN Reason: HYPOTENSION Stop: 03/30/18 23:07 Miscellaneous (Probiotic Screen) 1 ea MC PRN PRN PRN Reason: PROTOCOL Stop: 04/03/18 13:08 Miscellaneous (Clinical Monitoring) 1 ea MC DAILY PRN PRN Reason: RENAL Stop: 04/08/18 08:30 Morphine Sulfate (Morphine) 1 mg IVP Q4HR PRN PRN Reason: Pain (Severe) Stop: 03/30/18 23:17 Last Admin: 02/07/18 14:43 Dose: 1 mg Mupirocin (Bactroban Oint) 1 appl NS BID [facility] Stop: 02/11/18 17:01 Last Admin: 02/08/18 09:25 Dose: 1 appl Sevelamer Carbonate (Renvela) 800 mg PO TID [facility] Stop: 03/30/18 23:14 Last Admin: 02/08/18 09:21 Dose: Not Given Vitamin B Complex/Vit C/Folic Acid (Vitamin B Complex W/Vitamin C) 1 tab PO DAILY [facility] Stop: 03/31/18 08:59 Last Admin: 02/08/18 09:21 Dose: Not Given General: Alert, Oriented x3, Cooperative, No acute distress HEENT: Atraumatic, PERRLA, EOMI, Mucous membr. moist/pink Neck: Supple, +2 carotid pulse wo bruit Cardiovascular: Regular rate, Normal S1, Normal S2 Lungs: Other (increased BS right lung field, (+) PleurX tube) Abdomen: Bowel sounds, Soft Extremities: no Edema Neurological: Sensation intact Skin: no Rash Psych/Mental Status: Mood NL - Procedures Procedures: Procedures Procedure Code Date DRAINAGE OF R PLEURAL CAV WITH DRAIN DEV, PERC APPROACH [id number] 01/29/18 Assessment/Plan - Problem List Patient Problems: All Active Problems RIGHT FACIAL SWELLING AND PAIN (Acute) Nutritional Asmnt/Malnutr-PDOC - Dietary Evaluation Malnutrition Findings (Please click <Entered> for more info): Nutritional Asmnt/Malnutrition Start: 02/03/18 12: 10 Text: Status: Complete Freq: Document 02/03/18 12:10 RICO (Rec: 02/03/18 12:31 RICO IMAN- [email or web address]) Nutritional Asmnt/Malnutrition Patient General Information Nutritional Screening Moderate Risk Diagnosis Rt facuial cellulitis, rt pleural effusion Pertinent Medical Hx/Surgical Hx ESRD on dialysis x 7 years, COPD, hyperlipidemia, Type 2 diabetes Subjective Information Per H&P, patient was on peritoneal dialysis up to a few months ago when he was diagnosed with peritonitis ( now on HD TTS). Per nursing notes, pt refusing some medications. Diet education not appropriate at this time. Current Diet Order/ Nutrition Support 60 gm CCHO, 1200 ml fluid restriction Patient / S.O Not Indicated Pertinent Medications lipitor, Sensipar, colace, lasix, Epogen, Megacem abx, Renvela, Vitamin B complex with C Pertinent Labs ((02/02) Cr 4.5, Ca 8.5, albumin 24 Nutritional Hx/Data Height 1.68 m Height (Calculated Centimeters) 167.6 Current Weight (lbs) 79.379 kg Weight (Calculated Kilograms) 79.4 Weight (Calculated Grams) 37902.7 [place] Body Weight 142 % [place] Body Weight 123 Body Mass Index (BMI) 28.2 Recent Weight Change No Weight Status Overweight GI Symptoms GI Symptoms None Last BM 02/02 x 1 Difficult in: None Food Allergies No Cultural/Ethnic/Jain Belief none indicated Usual diet at home unknown Skin Integrity/Comment: Ba 15, cellulitis facial Current %PO Good (75-100%) Estimated Nutritional Goals BEE in Kcals: Adj wt of IBW Calories/Kcals/Kg 27-32 kcal/kg using 68.2 kg Adj wt Kcals Calculated 2101-0502 kcal/day Protein: Adj wt of IBW Protein g/k.2-1.5 gm/kg (HD) Protein Calculated 80-100 gm/day Fluid: ml Per MD due to HD Nutritional Problem 1. Problem Problem Increased nutrient needs related to Etiology impaired skin integrity/ dialysis aeb Signs/Symptoms: Facial cellulitis and on HD Intervention/Recommendation Comments Consider modifying diet to 2gm sodium. Glucose/HG1AC low, no need for Diabetic restriction . Continue to monitor K and Phosphorus levels and need for Renal diet (not needed at this time.) Consider Prosource with meals for added protein due to cellulitis and HD. Expected Outcomes/Goals Expected Outcomes/Goals oral intake to meet >75% of nutrient needs, nutritino related labs normalize, weight stable.
[2018-02-08] MEDS ORDERED: Propofol **SURGERY USE ONLY** 20 ML IV ONE (12:29)
[2018-02-08] MEDS ORDERED: fentaNYL Citrate 100 mcg/2mL Vial ONE (12:29)
--- NOTE | 2018-02-08 13:12 | Diagnostic Imaging Report ---
CHEST X-RAY: AP view INDICATION: Chest tube placement COMPARISON: Chest x-ray earlier the same day FINDINGS: Second right-sided chest tube has been placed with tip along the right upper hemithorax. The first right sided chest tube is unchanged with tip along the medial aspect of the right mid thorax. There is probable slight decrease in right-sided hydropneumothorax. Persistent volume loss of the right lung is noted. Cardiomegaly is noted. Right dialysis catheter is stable. IMPRESSION: Interval right-sided second chest tube placement with tip along the right upper hemithorax. Stable additional chest tube is again noted. There appears to be mild decrease in size of right hydropneumothorax. Persistent volume loss of the right lung is noted.
--- NOTE | 2018-02-08 13:24 | Operative Report ---
DATE OF SURGERY: 02/08/2018 PREOPERATIVE DIAGNOSES: 1. Recurrent right pleural effusion. 2. Pneumothorax, right chest. 3. End-stage renal disease. POSTOPERATIVE DIAGNOSES: 1. Recurrent right pleural effusion. 2. Pneumothorax, right chest. 3. End-stage renal disease. OPERATION DONE: Insertion of right chest tube. SURGEON: Dr. Arriola ANESTHESIA: MAC. ANESTHESIOLOGIST: Dr. Flores INDICATIONS FOR SURGERY: The patient had PleurX tube inserted 2 days ago with removal of 4000 mL of serous fluid, possibly of malignancy. The patient, however, developed pneumothorax and did not resolve with connecting the PleurX tube to suction. DESCRIPTION OF PROCEDURE: The patient was given IV sedation. The right chest was prepped with ChloraPrep and draped in appropriate manner. 1% lidocaine was used to infiltrate the seventh intercostal space at the midclavicular line. An incision was made and a hemostat was used to introduce into the thoracic cavity. A 24 Micronesian trocar catheter was inserted following this and anchored to the chest wall with 2-0 silk. This was connected to underwater seal and suction. The patient tolerated the procedure well. JOB# [id number]
--- NOTE | 2018-02-08 14:52 | General Progress Note ---
Subjective - Review of Systems Service Date: 02/08/18 Subjective: feels ok, comfortable Objective - Results Result Diagrams: 02/07/18 05:30 02/07/18 05:30 Recent Labs: Laboratory Last Values WBC 10.1 Th/cmm (4.8-10.8) 02/07/18 05:30 RBC 3.94 Mil/cmm (3.80-5.80) 02/07/18 05:30 Hgb 12.0 gm/dL (12-16) 02/07/18 05:30 Hct 36.5 % (41.0-60) L 02/07/18 05:30 MCV 92.6 fl (80-99) 02/07/18 05:30 MCH 30.5 pg (27.0-31.0) 02/07/18 05:30 MCHC Differential 32.9 pg (28.0-36.0) 02/07/18 05:30 RDW 14.7 % (11.5-20.0) 02/07/18 05:30 Plt Count 331 Th/cmm (150-400) 02/07/18 05:30 MPV 6.9 fl 02/07/18 05:30 Neutrophils % 63.8 % (40.0-80.0) 02/07/18 05:30 Lymphocytes % 20.3 % (20.0-50.0) 02/07/18 05:30 Monocytes % 8.7 % (2.0-10.0) 02/07/18 05:30 Eosinophils % 7.2 % (0.0-5.0) H 02/07/18 05:30 Basophils % 0.0 % (0.0-2.0) 02/07/18 05:30 ESR 87 mm/hr (0-20) H 01/31/18 04:15 PT 9.9 SECONDS (9.5-11.5) 01/29/18 16:42 INR 0.95 (0.5-1.4) 01/29/18 16:42 PTT (Actin FS) 29.9 SECONDS (26.0-38.0) 01/29/18 16:42 Sodium 136 mEq/L (136-145) 02/07/18 05:30 Potassium 3.8 mEq/L (3.5-5.1) 02/07/18 05:30 Chloride 104 mEq/L (98-107) 02/07/18 05:30 Carbon Dioxide 27.3 mEq/L (21.0-31.0) 02/07/18 05:30 Anion Gap 8.5 (7.0-16.0) 02/07/18 05:30 BUN 12 mg/dL (7-25) 02/07/18 05:30 Creatinine 4.4 mg/dL (0.7-1.3) H* 02/07/18 05:30 Est GFR ( Amer) 17.4 ml/min (>90) 02/07/18 05:30 Est GFR (Non-Af Amer) 14.4 ml/min 02/07/18 05:30 BUN/Creatinine Ratio 2.7 02/07/18 05:30 Glucose 86 mg/dL (70-105) 02/07/18 05:30 POC Glucose 106 MG/DL (70 - 105) H 02/08/18 12:11 Hemoglobin A1c % 3.5 % (4.0-6.0) L 01/31/18 04:15 Whole Bld Lactic Acid 0.55 mmol/L (0.60-1.99) L 01/29/18 16:42 Calcium 8.6 mg/dL (8.6-10.3) 02/07/18 05:30 Phosphorus 4.1 mg/dL (2.5-5.0) 01/31/18 04:15 Magnesium 1.8 mg/dL (1.9-2.7) L 02/07/18 05:30 Total Bilirubin 0.3 mg/dL (0.3-1.0) 02/06/18 05:35 AST 12 U/L (13-39) L 02/06/18 05:35 ALT 4 U/L (7-52) L 02/06/18 05:35 Alkaline Phosphatase 53 U/L (34-104) 02/06/18 05:35 Creatine Kinase 12 U/L (30-223) L 01/29/18 16:42 Troponin I 0.02 ng/mL (0.01-0.05) 01/29/18 16:42 C-Reactive Protein 11.4 mg/dL (0.0-0.9) H 01/31/18 04:15 Total Protein 5.9 gm/dL (6.0-8.3) L 02/06/18 05:35 Albumin 2.1 gm/dL (4.2-5.5) L 02/06/18 05:35 Globulin 3.8 gm/dL 02/06/18 05:35 Albumin/Globulin Ratio 0.6 (1.0-1.8) L 02/06/18 05:35 Triglycerides 72 mg/dL (<150) 01/31/18 04:15 Cholesterol 97 mg/dL (<200) 01/31/18 04:15 LDL Cholesterol Direct 45 mg/dL (75-193) L 01/31/18 04:15 HDL Cholesterol 36 mg/dL (23-92) 01/31/18 04:15 TSH 2.15 uIU/ml (0.34-5.60) 01/31/18 04:15 PTH Intact 36 pg/mL (15-65) 02/01/18 05:22 Urine Source MIDSTREAM 01/29/18 22:30 Urine Color YELLOW 01/29/18 22:30 Urine Clarity HAZY (CLEAR) 01/29/18 22:30 Urine pH 8.5 (4.6 - 8.0) 01/29/18 22:30 Ur Specific [place] 1.015 (1.005-1.030) 01/29/18 22:30 Urine Protein 100 mg/dL (NEGATIVE) H 01/29/18 22:30 Urine Glucose (UA) NEGATIVE mg/dL (NEGATIVE) 01/29/18 22:30 Urine Ketones NEGATIVE mg/dL (NEGATIVE) 01/29/18 22:30 Urine Blood MODERATE (NEGATIVE) H 01/29/18 22:30 Urine Nitrate NEGATIVE (NEGATIVE) 01/29/18 22:30 Urine Bilirubin NEGATIVE (NEGATIVE) 01/29/18 22:30 Urine Urobilinogen 0.2 E.U./dL (0.2 - 1.0) 01/29/18 22:30 Ur Leukocyte Esterase LARGE (NEGATIVE) H 01/29/18 22:30 Urine RBC 2-5 /hpf (0-5) H 01/29/18 22:30 Urine WBC >100 /hpf (0-5) H 01/29/18 22:30 Ur Epithelial Cells FEW /lpf (FEW) 01/29/18 22:30 Urine Bacteria MANY /hpf (NONE SEEN) H 01/29/18 22:30 Fluid Source PLEURAL 02/01/18 11:00 Fluid Color PALE YELLOW 02/01/18 11:00 Fluid Appearance HAZY 02/01/18 11:00 Fluid WBC 149 /cumm 02/01/18 11:00 Fluid RBC 185 /cumm 02/01/18 11:00 Fluid Neutrophils 2 % 02/01/18 11:00 Fluid Lymphocytes 50 % 02/01/18 11:00 Fluid Monocytes 48 % 02/01/18 11:00 Fluid Glucose 75.0 mg/dL 02/01/18 11:00 Fluid Total Protein 2.3 g/dL 02/01/18 11:00 Fluid Amylase 61 U/L 02/01/18 11:00 Random Vancomycin 22.5 ug/mL (5.0-40.0) 02/04/18 05:52 - Physical Exam Vitals and I&O: Vital Signs Temp 98 F 02/08/18 13:00 Pulse 66 02/08/18 14:38 Resp 18 02/08/18 14:38 BP 135/68 02/08/18 13:00 Pulse Ox 98 02/08/18 14:38 Intake & Output 02/07/18 02/08/18 02/08/18 18:59 06:59 18:59 Intake Total 150 250 200 Output Total 2500 420 145 Balance -2350 -170 55 Weight (lbs) 71.668 kg 71.668 kg 71.214 kg Intake: Oral 150 250 200 Output: Chest Tube Drainage 420 Right Lower Anterior 420 Chest Hemodialysis 2500 Other 145 Other: # Voids 0 2 0 # Bowel Movements 0 0 0 Weight Source Bedscale Bedscale Bedscale Active Medications: Current Medications Acetaminophen (Tylenol) 650 mg PO Q6HR PRN PRN Reason: PAIN Stop: 03/30/18 23:07 Acetaminophen/Hydrocodone Bitart (Decker 5mg/325mg) 2 tab PO Q4H PRN PRN Reason: Pain (Moderate) Stop: 03/30/18 23:16 Last Admin: 02/07/18 04:10 Dose: 2 tab Acetylcysteine (Mucomyst 20%) 2 ml HHN Q4HRT AMANDA Stop: 03/31/18 14:59 Last Admin: 02/08/18 14:37 Dose: Not Given Albuterol Sulfate (Albuterol 2.5mg/3ml Neb Ud) 2.5 mg HHN Q1H PRN PRN Reason: Respiratory Distress Stop: 03/31/18 07:59 Last Admin: 02/01/18 15:33 Dose: 2.5 mg Albuterol/Ipratropium (Duoneb Neb) 3 ml HHN Q4HRT AMANDA Stop: 03/31/18 14:59 Last Admin: 02/08/18 14:38 Dose: Not Given Atorvastatin Calcium (Lipitor) 40 mg PO HS [facility]ANDA Stop: 03/31/18 20:59 Last Admin: 02/07/18 21:54 Dose: 40 mg Cinacalcet (Sensipar) 30 mg PO DAILY [facility]ANDA Stop: 03/31/18 08:59 Last Admin: 02/08/18 09:20 Dose: Not Given Diclofenac Sodium (Voltaren) 50 mg PO BID [facility]ANDA Stop: 04/01/18 08:59 Last Admin: 02/08/18 09:20 Dose: Not Given Docusate Sodium (Colace) 100 mg PO DAILY [facility] Stop: 03/31/18 08:59 Last Admin: 02/08/18 09:20 Dose: Not Given Epoetin Vishal (Epogen) 10,000 units SUBQ MWF@1600 [facility] Stop: 04/01/18 15:59 Last Admin: 02/07/18 17:07 Dose: Not Given Furosemide (Lasix) 40 mg PO DAILY [facility] Stop: 03/31/18 08:59 Last Admin: 02/08/18 09:20 Dose: Not Given Ceftriaxone Sodium 1 gm/ (Sodium Chloride) 50 mls @ 100 mls/hr IV Q24HR [facility] Stop: 03/31/18 18:59 Last Admin: 02/07/18 18:18 Dose: 100 mls/hr Ipratropium [place] (Atrovent Neb 0.5mg/2.5ml) 0.5 mg HHN Q6HRT AMANDA Stop: 03/31/18 12:59 Last Admin: 02/08/18 14:37 Dose: Not Given Lactobacillus Rhamnosus (Culturelle 15b) 1 each PO DAILY [facility] Stop: 03/30/18 23:14 Last Admin: 02/08/18 09:21 Dose: Not Given Megestrol Acetate (Megace) 400 mg PO DAILY MAANDA PRN Reason: Protocol Stop: 03/31/18 08:59 Last Admin: 02/08/18 09:21 Dose: Not Given Metoprolol Tartrate (Lopressor) 50 mg PO BID [facility] Stop: 03/30/18 23:14 Last Admin: 02/08/18 09:21 Dose: Not Given Midodrine (Proamatine) 5 mg PO TID PRN PRN Reason: HYPOTENSION Stop: 03/30/18 23:07 Miscellaneous (Probiotic Screen) 1 ea MC PRN PRN PRN Reason: PROTOCOL Stop: 04/03/18 13:08 Miscellaneous (Clinical Monitoring) 1 ea MC DAILY PRN PRN Reason: RENAL Stop: 04/08/18 08:30 Morphine Sulfate (Morphine) 1 mg IVP Q4HR PRN PRN Reason: Pain (Severe) Stop: 03/30/18 23:17 Last Admin: 02/07/18 14:43 Dose: 1 mg Mupirocin (Bactroban Oint) 1 appl NS BID [facility] Stop: 02/11/18 17:01 Last Admin: 02/08/18 09:25 Dose: 1 appl Sevelamer Carbonate (Renvela) 800 mg PO TID [facility] Stop: 03/30/18 23:14 Last Admin: 02/08/18 14:18 Dose: 800 mg Vitamin B Complex/Vit C/Folic Acid (Vitamin B Complex W/Vitamin C) 1 tab PO DAILY [facility] Stop: 03/31/18 08:59 Last Admin: 02/08/18 09:21 Dose: Not Given General: Alert, Oriented x3, Cooperative, No acute distress HEENT: Atraumatic, PERRLA, EOMI, Mucous membr. moist/pink Neck: Supple, +2 carotid pulse wo bruit Cardiovascular: Regular rate, Normal S1, Normal S2 Lungs: Other (increased BS right lung field, (+) chest tube) Abdomen: Bowel sounds, Soft Extremities: no Edema Neurological: Sensation intact Skin: no Rash Psych/Mental Status: Mood NL - Procedures Procedures: Procedures Procedure Code Date DRAINAGE OF R PLEURAL CAV WITH DRAIN DEV, PERC APPROACH [id number] 01/29/18 Assessment/Plan - Problem List Patient Problems: All Active Problems RIGHT FACIAL SWELLING AND PAIN (Acute) - Assessment Assessment: ESRD on HD Right facial cellulitis Right lung opacification 2/2 effusion S/P Chest tube Cx UTI T2DM Anemia of CD - Plan Plan: Lab - Result Diagrams 01/31/18 04:15 01/31/18 04:15 Current Medications Acetaminophen (Tylenol) 650 mg PO Q6HR PRN PRN Reason: PAIN Stop: 03/30/18 23:07 Acetaminophen/Hydrocodone Bitart (Decker 5mg/325mg) 2 tab PO Q4H PRN PRN Reason: Pain (Moderate) Stop: 03/30/18 23:16 Last Admin: 01/29/18 23:29 Dose: 2 tab Acetylcysteine (Mucomyst 20%) 2 ml HHN Q4HRT [facility] Stop: 03/31/18 14:59 Last Admin: 01/31/18 11:27 Dose: 2 ml Albuterol Sulfate (Albuterol 2.5mg/3ml Neb Ud) 2.5 mg HHN Q1H PRN PRN Reason: Respiratory Distress Stop: 03/31/18 07:59 Albuterol/Ipratropium (Duoneb Neb) 3 ml HHN Q4HRT AMANDA Stop: 03/31/18 14:59 Last Admin: 01/31/18 11:27 Dose: 3 ml Atorvastatin Calcium (Lipitor) 40 mg PO HS [facility] Stop: 03/31/18 20:59 Last Admin: 01/30/18 21:19 Dose: 40 mg Cinacalcet (Sensipar) 30 mg PO DAILY [facility] Stop: 03/31/18 08:59 Last Admin: 01/31/18 08:28 Dose: Not Given Diclofenac Sodium (Voltaren) 50 mg PO BID [facility] Stop: 04/01/18 08:59 Last Admin: 01/31/18 08:25 Dose: 50 mg Docusate Sodium (Colace) 100 mg PO DAILY [facility] Stop: 03/31/18 08:59 Last Admin: 01/31/18 08:26 Dose: 100 mg Epoetin Vishal (Epogen) 10,000 units SUBQ MWF@1600 [facility] Stop: 04/01/18 15:59 Furosemide (Lasix) 40 mg PO DAILY [facility] Stop: 03/31/18 08:59 Last Admin: 01/31/18 08:26 Dose: 40 mg Heparin Sodium (Porcine) (Heparin) 5,000 units IVP ONCE@2100 [facility] Stop: 01/31/18 21:01 Last Admin: 01/30/18 21:18 Dose: 5,000 units Ceftriaxone Sodium 1 gm/ (Sodium Chloride) 50 mls @ 100 mls/hr IV Q24HR [facility] Stop: 03/31/18 18:59 Last Infusion: 01/30/18 21:50 Dose: Infused Ipratropium [place] (Atrovent Neb 0.5mg/2.5ml) 0.5 mg HHN Q6HRT [facility] Stop: 03/31/18 12:59 Last Admin: 01/31/18 00:57 Dose: Not Given Lactobacillus Rhamnosus (Culturelle 15b) 1 each PO DAILY [facility] Stop: 03/30/18 23:14 Last Admin: 01/31/18 08:27 Dose: 1 each Megestrol Acetate (Megace) 400 mg PO DAILY [facility]ANDA PRN Reason: Protocol Stop: 03/31/18 08:59 Last Admin: 01/31/18 09:31 Dose: Not Given Metoprolol Tartrate (Lopressor) 50 mg PO BID [facility] Stop: 03/30/18 23:14 Last Admin: 01/31/18 08:27 Dose: 50 mg Midodrine (Proamatine) 5 mg PO TID PRN PRN Reason: HYPOTENSION Stop: 03/30/18 23:07 Miscellaneous (Vancomycin Iv Per Pharmacy) 1 ea MC PRN [facility] Stop: 03/30/18 21:44 Morphine Sulfate (Morphine) 1 mg IVP Q4HR PRN PRN Reason: Pain (Severe) Stop: 03/30/18 23:17 Last Admin: 01/31/18 08:17 Dose: 1 mg Sevelamer Carbonate (Renvela) 800 mg PO TID [facility] Stop: 03/30/18 23:14 Last Admin: 01/31/18 08:28 Dose: 800 mg Vitamin B Complex/Vit C/Folic Acid (Vitamin B Complex W/Vitamin C) 1 tab PO DAILY [facility] Stop: 03/31/18 08:59 Last Admin: 01/31/18 08:28 Dose: 1 t Lab - Result Diagrams 02/07/18 05:30 02/07/18 05:30 scheduled for HD t0day switched to Chest tube CT scan chest revealed large right effusion 2/2 compatible ATx & collapse right lung ? PNA continue Rocephin WBC @ 10.1 Nutritional Asmnt/Malnutr-PDOC - Dietary Evaluation Malnutrition Findings (Please click <Entered> for more info): Nutritional Asmnt/Malnutrition Start: 02/03/18 12: 10 Text: Status: Complete Freq: Document 02/03/18 12:10 RICO (Rec: 02/03/18 12:31 [email or web address] [email or web address]) Nutritional Asmnt/Malnutrition Patient General Information Nutritional Screening Moderate Risk Diagnosis Rt facuial cellulitis, rt pleural effusion Pertinent Medical Hx/Surgical Hx ESRD on dialysis x 7 years, COPD, hyperlipidemia, Type 2 diabetes Subjective Information Per H&P, patient was on peritoneal dialysis up to a few months ago when he was diagnosed with peritonitis ( now on HD TTS). Per nursing notes, pt refusing some medications. Diet education not appropriate at this time. Current Diet Order/ Nutrition Support 60 gm CCHO, 1200 ml fluid restriction Patient / S.O Not Indicated Pertinent Medications lipitor, Sensipar, colace, lasix, Epogen, Megacem abx, Renvela, Vitamin B complex with C Pertinent Labs ((02/02) Cr 4.5, Ca 8.5, albumin 24 Nutritional Hx/Data Height 1.68 m Height (Calculated Centimeters) 167.6 Current Weight (lbs) 79.379 kg Weight (Calculated Kilograms) 79.4 Weight (Calculated Grams) [address]18.7 [place] Body Weight 142 % [place] Body Weight 123 Body Mass Index (BMI) 28.2 Recent Weight Change No Weight Status Overweight GI Symptoms GI Symptoms None Last BM 02/02 x 1 Difficult in: None Food Allergies No Cultural/Ethnic/Adventism Belief none indicated Usual diet at home unknown Skin Integrity/Comment: Ba 15, cellulitis facial Current %PO Good (75-100%) Estimated Nutritional Goals BEE in Kcals: Adj wt of IBW Calories/Kcals/Kg 27-32 kcal/kg using 68.2 kg Adj wt Kcals Calculated 0351-5065 kcal/day Protein: Adj wt of IBW Protein g/k.2-1.5 gm/kg (HD) Protein Calculated 80-100 gm/day Fluid: ml Per MD due to HD Nutritional Problem 1. Problem Problem Increased nutrient needs related to Etiology impaired skin integrity/ dialysis aeb Signs/Symptoms: Facial cellulitis and on HD Intervention/Recommendation Comments Consider modifying diet to 2gm sodium. Glucose/HG1AC low, no need for Diabetic restriction . Continue to monitor K and Phosphorus levels and need for Renal diet (not needed at this time.) Consider Prosource with meals for added protein due to cellulitis and HD. Expected Outcomes/Goals Expected Outcomes/Goals oral intake to meet >75% of nutrient needs, nutritino related labs normalize, weight stable.
[2018-02-08] MEDS: Hydrocodone/APAP 5mg/325mg Tab PO PRN ×2 (16:27→21:07)
[2018-02-08] MEDS: cefTRIAXone 1 GM in Sodium Chloride 0.9% 50 ML IV SCH (18:06)
[2018-02-09] MEDS: Ipratropium Neb 0.5 mg/2.5 mL UD HHN SCH ×4 (00:33→19:00)
[2018-02-09] MEDS: Albuterol/Ipratropium Neb 3 ML AERS HHN SCH ×6 (03:33→22:22)
[2018-02-09] MEDS: Morphine Sulfate 4 mg/mL 1mL Syr IVP PRN (04:30)
[2018-02-09 04:53] LABS: % BASOPHILS 1.4 % (0.0-2.0); % LYMPHOCYTES 24.3 % (20.0-50.0); % NEUTROPHILS 60.3 % (40.0-80.0); BASOPHILE ABSOLUTE 0.1 Th/cumm (0-0.2); EOSINOPHILE ABSOLUTE 0.5 Th/cmm (0.1-0.4); HEMATOCRIT 36.9 % (41.0-60); HEMOGLOBIN 12.2 gm/dL (12-16); LYMPHOCYTE ABSOLUTE 2.1 Th/cmm (1.5-3.0); MEAN CELL VOLUME 90.9 fl (80-99); MEAN CORPUSCULAR HEMOGLOBIN 30.1 pg (27.0-31.0); MEAN PLATELET VOLUME 6.5 fl; MONOCYTE ABSOLUTE 0.7 Th/cmm (0.3-1.0); NEUTROPHILE ABSOLUTE 5.4 Th/cmm (1.8-8.0); PLATELET COUNT 355 Th/cmm (150-400); RED BLOOD COUNT 4.06 Mil/cmm (3.80-5.80); RED CELL DISTRIBUTION WIDTH 14.9 % (11.5-20.0); WHITE BLOOD COUNT 8.8 Th/cmm (4.8-10.8)
[2018-02-09 05:55] LABS: ANION GAP 9.6 (7.0-16.0); CALCIUM SERUM 8.9 mg/dL (8.6-10.3); CARBON DIOXIDE 30.3 mEq/L (21.0-31.0); GFR NON AFRICAN-AMERICAN 14.1 ml/min; POTASSIUM SERUM 3.9 mEq/L (3.5-5.1)
[2018-02-09 06:07] LABS: CREATININE - SERUM 4.5 mg/dL (0.7-1.3)
[2018-02-09] MEDS: Lactobacillus Rhamnosus GG 15 Billion CFU CAP.SPRINK PO SCH (08:12)
[2018-02-09] MEDS: Vitamin B Complex w/Vitamin C Tab PO SCH (08:12)
--- NOTE | 2018-02-09 09:13 | Diagnostic Imaging Report ---
Portable chest x-ray HISTORY: Pneumothorax, shortness of breath Compared with prior exam of 02/08/2018, no change in a right pneumothorax with compression of the majority of the right lung. Small right pleural effusion also evident. IMPRESSION: 1. No change in the cardiopulmonary status with persistent right pneumothorax.
--- NOTE | 2018-02-09 12:39 | General Progress Note ---
Subjective - Review of Systems Service Date: 02/09/18 Events since last encounter: slight decrease in pneumo, drainage overnight 150 cc might benefit from bronchoscopy Objective - Results Result Diagrams: 02/09/18 04:20 02/09/18 04:20 Recent Labs: Laboratory Last Values WBC 8.8 Th/cmm (4.8-10.8) 02/09/18 04:20 RBC 4.06 Mil/cmm (3.80-5.80) 02/09/18 04:20 Hgb 12.2 gm/dL (12-16) 02/09/18 04:20 Hct 36.9 % (41.0-60) L 02/09/18 04:20 MCV 90.9 fl (80-99) 02/09/18 04:20 MCH 30.1 pg (27.0-31.0) 02/09/18 04:20 MCHC Differential 33.0 pg (28.0-36.0) 02/09/18 04:20 RDW 14.9 % (11.5-20.0) 02/09/18 04:20 Plt Count 355 Th/cmm (150-400) 02/09/18 04:20 MPV 6.5 fl 02/09/18 04:20 Neutrophils % 60.3 % (40.0-80.0) 02/09/18 04:20 Lymphocytes % 24.3 % (20.0-50.0) 02/09/18 04:20 Monocytes % 8.0 % (2.0-10.0) 02/09/18 04:20 Eosinophils % 6.0 % (0.0-5.0) H 02/09/18 04:20 Basophils % 1.4 % (0.0-2.0) 02/09/18 04:20 ESR 87 mm/hr (0-20) H 01/31/18 04:15 PT 9.9 SECONDS (9.5-11.5) 01/29/18 16:42 INR 0.95 (0.5-1.4) 01/29/18 16:42 PTT (Actin FS) 29.9 SECONDS (26.0-38.0) 01/29/18 16:42 Sodium 137 mEq/L (136-145) 02/09/18 04:20 Potassium 3.9 mEq/L (3.5-5.1) 02/09/18 04:20 Chloride 101 mEq/L (98-107) 02/09/18 04:20 Carbon Dioxide 30.3 mEq/L (21.0-31.0) 02/09/18 04:20 Anion Gap 9.6 (7.0-16.0) 02/09/18 04:20 BUN 12 mg/dL (7-25) 02/09/18 04:20 Creatinine 4.5 mg/dL (0.7-1.3) H* 02/09/18 04:20 Est GFR ( Amer) 17.0 ml/min (>90) 02/09/18 04:20 Est GFR (Non-Af Amer) 14.1 ml/min 02/09/18 04:20 BUN/Creatinine Ratio 2.7 02/09/18 04:20 Glucose 75 mg/dL (70-105) 02/09/18 04:20 POC Glucose 106 MG/DL (70 - 105) H 02/08/18 12:11 Hemoglobin A1c % 3.5 % (4.0-6.0) L 01/31/18 04:15 Whole Bld Lactic Acid 0.55 mmol/L (0.60-1.99) L 01/29/18 16:42 Calcium 8.9 mg/dL (8.6-10.3) 02/09/18 04:20 Phosphorus 4.1 mg/dL (2.5-5.0) 01/31/18 04:15 Magnesium 1.8 mg/dL (1.9-2.7) L 02/07/18 05:30 Total Bilirubin 0.3 mg/dL (0.3-1.0) 02/06/18 05:35 AST 12 U/L (13-39) L 02/06/18 05:35 ALT 4 U/L (7-52) L 02/06/18 05:35 Alkaline Phosphatase 53 U/L (34-104) 02/06/18 05:35 Creatine Kinase 12 U/L (30-223) L 01/29/18 16:42 Troponin I 0.02 ng/mL (0.01-0.05) 01/29/18 16:42 C-Reactive Protein 11.4 mg/dL (0.0-0.9) H 01/31/18 04:15 Total Protein 5.9 gm/dL (6.0-8.3) L 02/06/18 05:35 Albumin 2.1 gm/dL (4.2-5.5) L 02/06/18 05:35 Globulin 3.8 gm/dL 02/06/18 05:35 Albumin/Globulin Ratio 0.6 (1.0-1.8) L 02/06/18 05:35 Triglycerides 72 mg/dL (<150) 01/31/18 04:15 Cholesterol 97 mg/dL (<200) 01/31/18 04:15 LDL Cholesterol Direct 45 mg/dL (75-193) L 01/31/18 04:15 HDL Cholesterol 36 mg/dL (23-92) 01/31/18 04:15 TSH 2.15 uIU/ml (0.34-5.60) 01/31/18 04:15 PTH Intact 36 pg/mL (15-65) 02/01/18 05:22 Urine Source MIDSTREAM 01/29/18 22:30 Urine Color YELLOW 01/29/18 22:30 Urine Clarity HAZY (CLEAR) 01/29/18 22:30 Urine pH 8.5 (4.6 - 8.0) 01/29/18 22:30 Ur Specific [place] 1.015 (1.005-1.030) 01/29/18 22:30 Urine Protein 100 mg/dL (NEGATIVE) H 01/29/18 22:30 Urine Glucose (UA) NEGATIVE mg/dL (NEGATIVE) 01/29/18 22:30 Urine Ketones NEGATIVE mg/dL (NEGATIVE) 01/29/18 22:30 Urine Blood MODERATE (NEGATIVE) H 01/29/18 22:30 Urine Nitrate NEGATIVE (NEGATIVE) 01/29/18 22:30 Urine Bilirubin NEGATIVE (NEGATIVE) 01/29/18 22:30 Urine Urobilinogen 0.2 E.U./dL (0.2 - 1.0) 01/29/18 22:30 Ur Leukocyte Esterase LARGE (NEGATIVE) H 01/29/18 22:30 Urine RBC 2-5 /hpf (0-5) H 01/29/18 22:30 Urine WBC >100 /hpf (0-5) H 01/29/18 22:30 Ur Epithelial Cells FEW /lpf (FEW) 01/29/18 22:30 Urine Bacteria MANY /hpf (NONE SEEN) H 01/29/18 22:30 Fluid Source PLEURAL 02/01/18 11:00 Fluid Color PALE YELLOW 02/01/18 11:00 Fluid Appearance HAZY 02/01/18 11:00 Fluid WBC 149 /cumm 02/01/18 11:00 Fluid RBC 185 /cumm 02/01/18 11:00 Fluid Neutrophils 2 % 02/01/18 11:00 Fluid Lymphocytes 50 % 02/01/18 11:00 Fluid Monocytes 48 % 02/01/18 11:00 Fluid Glucose 75.0 mg/dL 02/01/18 11:00 Fluid Total Protein 2.3 g/dL 02/01/18 11:00 Fluid Amylase 61 U/L 02/01/18 11:00 Random Vancomycin 22.5 ug/mL (5.0-40.0) 02/04/18 05:52 - Physical Exam Vitals and I&O: Vital Signs Temp 96.6 F 02/09/18 11:54 Pulse 67 02/09/18 11:54 Resp 18 02/09/18 11:54 BP 101/54 02/09/18 11:54 Pulse Ox 99 02/09/18 11:54 Intake & Output 02/08/18 02/09/18 02/09/18 18:59 06:59 18:59 Intake Total 700 200 Output Total 720 2550 Balance -20 -2350 Weight (lbs) 71.214 kg 71.214 kg Intake: Oral 700 200 Output: Chest Tube Drainage 325 700 Right Lower Anterior 325 700 Chest Urine 250 300 Other 145 1550 Other: # Voids 0 2 # Bowel Movements 0 0 Weight Source Bedscale Bedscale Active Medications: Current Medications Acetaminophen (Tylenol) 650 mg PO Q6HR PRN PRN Reason: PAIN Stop: 03/30/18 23:07 Acetaminophen/Hydrocodone Bitart ([place] 5mg/325mg) 2 tab PO Q4H PRN PRN Reason: Pain (Moderate) Stop: 03/30/18 23:16 Last Admin: 02/08/18 21:07 Dose: 2 tab Albuterol Sulfate (Albuterol 2.5mg/3ml Neb Ud) 2.5 mg HHN Q1H PRN PRN Reason: Respiratory Distress Stop: 03/31/18 07:59 Last Admin: 02/01/18 15:33 Dose: 2.5 mg Albuterol/Ipratropium (Duoneb Neb) 3 ml HHN Q4HRT [facility] Stop: 03/31/18 14:59 Last Admin: 02/09/18 12:06 Dose: Not Given Atorvastatin Calcium (Lipitor) 40 mg PO HS [facility] Stop: 03/31/18 20:59 Last Admin: 02/08/18 21:06 Dose: 40 mg Cinacalcet (Sensipar) 30 mg PO DAILY [facility] Stop: 03/31/18 08:59 Last Admin: 02/09/18 08:26 Dose: Not Given Diclofenac Sodium (Voltaren) 50 mg PO BID [facility] Stop: 04/01/18 08:59 Last Admin: 02/09/18 08:12 Dose: 50 mg Docusate Sodium (Colace) 100 mg PO DAILY [facility] Stop: 03/31/18 08:59 Last Admin: 02/09/18 08:12 Dose: 100 mg Epoetin Vishal (Epogen) 10,000 units SUBQ MWF@1600 [facility] Stop: 04/01/18 15:59 Last Admin: 02/07/18 17:07 Dose: Not Given Furosemide (Lasix) 40 mg PO DAILY [facility] Stop: 03/31/18 08:59 Last Admin: 02/09/18 08:12 Dose: 40 mg Ceftriaxone Sodium 1 gm/ (Sodium Chloride) 50 mls @ 100 mls/hr IV Q24HR [facility] Stop: 03/31/18 18:59 Last Admin: 02/08/18 18:06 Dose: 100 mls/hr Ipratropium [place] (Atrovent Neb 0.5mg/2.5ml) 0.5 mg HHN Q6HRT [facility] Stop: 03/31/18 12:59 Last Admin: 02/09/18 12:09 Dose: 0.5 mg Lactobacillus Rhamnosus (Culturelle 15b) 1 each PO DAILY [facility] Stop: 03/30/18 23:14 Last Admin: 02/09/18 08:12 Dose: 1 each Megestrol Acetate (Megace) 400 mg PO DAILY [facility] PRN Reason: Protocol Stop: 03/31/18 08:59 Last Admin: 02/09/18 08:13 Dose: Not Given Metoprolol Tartrate (Lopressor) 50 mg PO BID [facility] Stop: 03/30/18 23:14 Last Admin: 02/09/18 08:12 Dose: 50 mg Midodrine (Proamatine) 5 mg PO TID PRN PRN Reason: HYPOTENSION Stop: 03/30/18 23:07 Miscellaneous (Probiotic Screen) 1 ea MC PRN PRN PRN Reason: PROTOCOL Stop: 04/03/18 13:08 Miscellaneous (Clinical Monitoring) 1 ea MC DAILY PRN PRN Reason: RENAL Stop: 04/08/18 08:30 Morphine Sulfate (Morphine) 1 mg IVP Q4HR PRN PRN Reason: Pain (Severe) Stop: 03/30/18 23:17 Last Admin: 02/09/18 04:30 Dose: 1 mg Mupirocin (Bactroban Oint) 1 appl NS BID [facility] Stop: 02/11/18 17:01 Last Admin: 02/09/18 08:11 Dose: 1 appl Sevelamer Carbonate (Renvela) 800 mg PO TID [facility] Stop: 03/30/18 23:14 Last Admin: 02/09/18 08:12 Dose: 800 mg Vitamin B Complex/Vit C/Folic Acid (Vitamin B Complex W/Vitamin C) 1 tab PO DAILY [facility] Stop: 03/31/18 08:59 Last Admin: 02/09/18 08:12 Dose: 1 tab General: Alert, Oriented x3, Cooperative, No acute distress HEENT: Atraumatic, PERRLA, EOMI, Mucous membr. moist/pink Neck: Supple, +2 carotid pulse wo bruit Cardiovascular: Regular rate, Normal S1, Normal S2 Lungs: Other (increased BS right lung field, (+) chest tube) Abdomen: Bowel sounds, Soft Extremities: no Edema Neurological: Sensation intact Skin: no Rash Psych/Mental Status: Mood NL - Procedures Procedures: Procedures Procedure Code Date DRAINAGE OF R PLEURAL CAV WITH DRAIN DEV, PERC APPROACH [id number] 01/29/18 Assessment/Plan - Problem List Patient Problems: All Active Problems RIGHT FACIAL SWELLING AND PAIN (Acute) Nutritional Asmnt/Malnutr-PDOC - Dietary Evaluation Malnutrition Findings (Please click <Entered> for more info): Nutritional Asmnt/Malnutrition Start: 02/03/18 12: 10 Text: Status: Complete Freq: Document 02/03/18 12:10 MMULHERN (Rec: 02/03/18 12:31 [email or web address] [id number]) Nutritional Asmnt/Malnutrition Patient General Information Nutritional Screening Moderate Risk Diagnosis Rt facuial cellulitis, rt pleural effusion Pertinent Medical Hx/Surgical Hx ESRD on dialysis x 7 years, COPD, hyperlipidemia, Type 2 diabetes Subjective Information Per H&P, patient was on peritoneal dialysis up to a few months ago when he was diagnosed with peritonitis ( now on HD TTS). Per nursing notes, pt refusing some medications. Diet education not appropriate at this time. Current Diet Order/ Nutrition Support 60 gm CCHO, 1200 ml fluid restriction Patient / S.O Not Indicated Pertinent Medications lipitor, Sensipar, colace, lasix, Epogen, Megacem abx, Renvela, Vitamin B complex with C Pertinent Labs ((02/02) Cr 4.5, Ca 8.5, albumin 24 Nutritional Hx/Data Height 1.68 m Height (Calculated Centimeters) 167.6 Current Weight (lbs) 79.379 kg Weight (Calculated Kilograms) 79.4 Weight (Calculated Grams) 67706.7 [place] Body Weight 142 % [place] Body Weight 123 Body Mass Index (BMI) 28.2 Recent Weight Change No Weight Status Overweight GI Symptoms GI Symptoms None Last BM 02/02 x 1 Difficult in: None Food Allergies No Cultural/Ethnic/Orthodox Belief none indicated Usual diet at home unknown Skin Integrity/Comment: Ba 15, cellulitis facial Current %PO Good (75-100%) Estimated Nutritional Goals BEE in Kcals: Adj wt of IBW Calories/Kcals/Kg 27-32 kcal/kg using 68.2 kg Adj wt Kcals Calculated 7832-4089 kcal/day Protein: Adj wt of IBW Protein g/k.2-1.5 gm/kg (HD) Protein Calculated 80-100 gm/day Fluid: ml Per MD due to HD Nutritional Problem 1. Problem Problem Increased nutrient needs related to Etiology impaired skin integrity/ dialysis aeb Signs/Symptoms: Facial cellulitis and on HD Intervention/Recommendation Comments Consider modifying diet to 2gm sodium. Glucose/HG1AC low, no need for Diabetic restriction . Continue to monitor K and Phosphorus levels and need for Renal diet (not needed at this time.) Consider Prosource with meals for added protein due to cellulitis and HD. Expected Outcomes/Goals Expected Outcomes/Goals oral intake to meet >75% of nutrient needs, nutritino related labs normalize, weight stable.
--- NOTE | 2018-02-09 14:20 | General Progress Note ---
Subjective - Review of Systems Service Date: 02/09/18 Subjective: feels ok, comfortable Objective - Results Result Diagrams: 02/09/18 04:20 02/09/18 04:20 Recent Labs: Laboratory Last Values WBC 8.8 Th/cmm (4.8-10.8) 02/09/18 04:20 RBC 4.06 Mil/cmm (3.80-5.80) 02/09/18 04:20 Hgb 12.2 gm/dL (12-16) 02/09/18 04:20 Hct 36.9 % (41.0-60) L 02/09/18 04:20 MCV 90.9 fl (80-99) 02/09/18 04:20 MCH 30.1 pg (27.0-31.0) 02/09/18 04:20 MCHC Differential 33.0 pg (28.0-36.0) 02/09/18 04:20 RDW 14.9 % (11.5-20.0) 02/09/18 04:20 Plt Count 355 Th/cmm (150-400) 02/09/18 04:20 MPV 6.5 fl 02/09/18 04:20 Neutrophils % 60.3 % (40.0-80.0) 02/09/18 04:20 Lymphocytes % 24.3 % (20.0-50.0) 02/09/18 04:20 Monocytes % 8.0 % (2.0-10.0) 02/09/18 04:20 Eosinophils % 6.0 % (0.0-5.0) H 02/09/18 04:20 Basophils % 1.4 % (0.0-2.0) 02/09/18 04:20 ESR 87 mm/hr (0-20) H 01/31/18 04:15 PT 9.9 SECONDS (9.5-11.5) 01/29/18 16:42 INR 0.95 (0.5-1.4) 01/29/18 16:42 PTT (Actin FS) 29.9 SECONDS (26.0-38.0) 01/29/18 16:42 Sodium 137 mEq/L (136-145) 02/09/18 04:20 Potassium 3.9 mEq/L (3.5-5.1) 02/09/18 04:20 Chloride 101 mEq/L (98-107) 02/09/18 04:20 Carbon Dioxide 30.3 mEq/L (21.0-31.0) 02/09/18 04:20 Anion Gap 9.6 (7.0-16.0) 02/09/18 04:20 BUN 12 mg/dL (7-25) 02/09/18 04:20 Creatinine 4.5 mg/dL (0.7-1.3) H* 02/09/18 04:20 Est GFR ( Amer) 17.0 ml/min (>90) 02/09/18 04:20 Est GFR (Non-Af Amer) 14.1 ml/min 02/09/18 04:20 BUN/Creatinine Ratio 2.7 02/09/18 04:20 Glucose 75 mg/dL (70-105) 02/09/18 04:20 POC Glucose 106 MG/DL (70 - 105) H 02/08/18 12:11 Hemoglobin A1c % 3.5 % (4.0-6.0) L 01/31/18 04:15 Whole Bld Lactic Acid 0.55 mmol/L (0.60-1.99) L 01/29/18 16:42 Calcium 8.9 mg/dL (8.6-10.3) 02/09/18 04:20 Phosphorus 4.1 mg/dL (2.5-5.0) 01/31/18 04:15 Magnesium 1.8 mg/dL (1.9-2.7) L 02/07/18 05:30 Total Bilirubin 0.3 mg/dL (0.3-1.0) 02/06/18 05:35 AST 12 U/L (13-39) L 02/06/18 05:35 ALT 4 U/L (7-52) L 02/06/18 05:35 Alkaline Phosphatase 53 U/L (34-104) 02/06/18 05:35 Creatine Kinase 12 U/L (30-223) L 01/29/18 16:42 Troponin I 0.02 ng/mL (0.01-0.05) 01/29/18 16:42 C-Reactive Protein 11.4 mg/dL (0.0-0.9) H 01/31/18 04:15 Total Protein 5.9 gm/dL (6.0-8.3) L 02/06/18 05:35 Albumin 2.1 gm/dL (4.2-5.5) L 02/06/18 05:35 Globulin 3.8 gm/dL 02/06/18 05:35 Albumin/Globulin Ratio 0.6 (1.0-1.8) L 02/06/18 05:35 Triglycerides 72 mg/dL (<150) 01/31/18 04:15 Cholesterol 97 mg/dL (<200) 01/31/18 04:15 LDL Cholesterol Direct 45 mg/dL (75-193) L 01/31/18 04:15 HDL Cholesterol 36 mg/dL (23-92) 01/31/18 04:15 TSH 2.15 uIU/ml (0.34-5.60) 01/31/18 04:15 PTH Intact 36 pg/mL (15-65) 02/01/18 05:22 Urine Source MIDSTREAM 01/29/18 22:30 Urine Color YELLOW 01/29/18 22:30 Urine Clarity HAZY (CLEAR) 01/29/18 22:30 Urine pH 8.5 (4.6 - 8.0) 01/29/18 22:30 Ur Specific [place] 1.015 (1.005-1.030) 01/29/18 22:30 Urine Protein 100 mg/dL (NEGATIVE) H 01/29/18 22:30 Urine Glucose (UA) NEGATIVE mg/dL (NEGATIVE) 01/29/18 22:30 Urine Ketones NEGATIVE mg/dL (NEGATIVE) 01/29/18 22:30 Urine Blood MODERATE (NEGATIVE) H 01/29/18 22:30 Urine Nitrate NEGATIVE (NEGATIVE) 01/29/18 22:30 Urine Bilirubin NEGATIVE (NEGATIVE) 01/29/18 22:30 Urine Urobilinogen 0.2 E.U./dL (0.2 - 1.0) 01/29/18 22:30 Ur Leukocyte Esterase LARGE (NEGATIVE) H 01/29/18 22:30 Urine RBC 2-5 /hpf (0-5) H 01/29/18 22:30 Urine WBC >100 /hpf (0-5) H 01/29/18 22:30 Ur Epithelial Cells FEW /lpf (FEW) 01/29/18 22:30 Urine Bacteria MANY /hpf (NONE SEEN) H 01/29/18 22:30 Fluid Source PLEURAL 02/01/18 11:00 Fluid Color PALE YELLOW 02/01/18 11:00 Fluid Appearance HAZY 02/01/18 11:00 Fluid WBC 149 /cumm 02/01/18 11:00 Fluid RBC 185 /cumm 02/01/18 11:00 Fluid Neutrophils 2 % 02/01/18 11:00 Fluid Lymphocytes 50 % 02/01/18 11:00 Fluid Monocytes 48 % 02/01/18 11:00 Fluid Glucose 75.0 mg/dL 02/01/18 11:00 Fluid Total Protein 2.3 g/dL 02/01/18 11:00 Fluid Amylase 61 U/L 02/01/18 11:00 Random Vancomycin 22.5 ug/mL (5.0-40.0) 02/04/18 05:52 - Physical Exam Vitals and I&O: Vital Signs Temp 96.6 F 02/09/18 11:54 Pulse 67 02/09/18 11:54 Resp 18 02/09/18 11:54 BP 101/54 02/09/18 11:54 Pulse Ox 99 02/09/18 11:54 Intake & Output 02/08/18 02/09/18 02/09/18 18:59 06:59 18:59 Intake Total 700 200 Output Total 720 2550 Balance -20 -2350 Weight (lbs) 71.214 kg 71.214 kg Intake: Oral 700 200 Output: Chest Tube Drainage 325 700 Right Lower Anterior 325 700 Chest Urine 250 300 Other 145 1550 Other: # Voids 0 2 # Bowel Movements 0 0 Weight Source Bedscale Bedscale Active Medications: Current Medications Acetaminophen (Tylenol) 650 mg PO Q6HR PRN PRN Reason: PAIN Stop: 03/30/18 23:07 Acetaminophen/Hydrocodone Bitart (Helix 5mg/325mg) 2 tab PO Q4H PRN PRN Reason: Pain (Moderate) Stop: 03/30/18 23:16 Last Admin: 02/08/18 21:07 Dose: 2 tab Albuterol Sulfate (Albuterol 2.5mg/3ml Neb Ud) 2.5 mg HHN Q1H PRN PRN Reason: Respiratory Distress Stop: 03/31/18 07:59 Last Admin: 02/01/18 15:33 Dose: 2.5 mg Albuterol/Ipratropium (Duoneb Neb) 3 ml HHN Q4HRT [facility] Stop: 03/31/18 14:59 Last Admin: 02/09/18 12:06 Dose: Not Given Atorvastatin Calcium (Lipitor) 40 mg PO HS [facility] Stop: 03/31/18 20:59 Last Admin: 02/08/18 21:06 Dose: 40 mg Cinacalcet (Sensipar) 30 mg PO DAILY [facility] Stop: 03/31/18 08:59 Last Admin: 02/09/18 08:26 Dose: Not Given Diclofenac Sodium (Voltaren) 50 mg PO BID [facility] Stop: 04/01/18 08:59 Last Admin: 02/09/18 08:12 Dose: 50 mg Docusate Sodium (Colace) 100 mg PO DAILY [facility] Stop: 03/31/18 08:59 Last Admin: 02/09/18 08:12 Dose: 100 mg Epoetin Vishal (Epogen) 10,000 units SUBQ MWF@1600 [facility] Stop: 04/01/18 15:59 Last Admin: 02/07/18 17:07 Dose: Not Given Furosemide (Lasix) 40 mg PO DAILY [facility] Stop: 03/31/18 08:59 Last Admin: 02/09/18 08:12 Dose: 40 mg Ceftriaxone Sodium 1 gm/ (Sodium Chloride) 50 mls @ 100 mls/hr IV Q24HR [facility] Stop: 03/31/18 18:59 Last Admin: 02/08/18 18:06 Dose: 100 mls/hr Ipratropium [place] (Atrovent Neb 0.5mg/2.5ml) 0.5 mg HHN Q6HRT [facility] Stop: 03/31/18 12:59 Last Admin: 02/09/18 12:09 Dose: 0.5 mg Lactobacillus Rhamnosus (Culturelle 15b) 1 each PO DAILY [facility] Stop: 03/30/18 23:14 Last Admin: 02/09/18 08:12 Dose: 1 each Megestrol Acetate (Megace) 400 mg PO DAILY [facility] PRN Reason: Protocol Stop: 03/31/18 08:59 Last Admin: 02/09/18 08:13 Dose: Not Given Metoprolol Tartrate (Lopressor) 50 mg PO BID [facility] Stop: 03/30/18 23:14 Last Admin: 02/09/18 08:12 Dose: 50 mg Midodrine (Proamatine) 5 mg PO TID PRN PRN Reason: HYPOTENSION Stop: 03/30/18 23:07 Miscellaneous (Probiotic Screen) 1 ea MC PRN PRN PRN Reason: PROTOCOL Stop: 04/03/18 13:08 Miscellaneous (Clinical Monitoring) 1 ea MC DAILY PRN PRN Reason: RENAL Stop: 04/08/18 08:30 Morphine Sulfate (Morphine) 1 mg IVP Q4HR PRN PRN Reason: Pain (Severe) Stop: 03/30/18 23:17 Last Admin: 02/09/18 04:30 Dose: 1 mg Mupirocin (Bactroban Oint) 1 appl NS BID [facility] Stop: 02/11/18 17:01 Last Admin: 02/09/18 08:11 Dose: 1 appl Sevelamer Carbonate (Renvela) 800 mg PO TID [facility] Stop: 03/30/18 23:14 Last Admin: 02/09/18 08:12 Dose: 800 mg Vitamin B Complex/Vit C/Folic Acid (Vitamin B Complex W/Vitamin C) 1 tab PO DAILY [facility] Stop: 03/31/18 08:59 Last Admin: 02/09/18 08:12 Dose: 1 tab General: Alert, Oriented x3, Cooperative, No acute distress HEENT: Atraumatic, PERRLA, EOMI, Mucous membr. moist/pink Neck: Supple, +2 carotid pulse wo bruit Cardiovascular: Regular rate, Normal S1, Normal S2 Lungs: Other (increased BS right lung field, (+) chest tube) Abdomen: Bowel sounds, Soft Extremities: no Edema Neurological: Sensation intact Skin: no Rash Psych/Mental Status: Mood NL - Procedures Procedures: Procedures Procedure Code Date DRAINAGE OF R PLEURAL CAV WITH DRAIN DEV, PERC APPROACH [id number] 01/29/18 Assessment/Plan - Problem List Patient Problems: All Active Problems RIGHT FACIAL SWELLING AND PAIN (Acute) - Assessment Assessment: ESRD on HD Right facial cellulitis Right lung opacification 2/2 effusion S/P Chest tube Cx UTI T2DM Anemia of CD - Plan Plan: Lab - Result Diagrams 01/31/18 04:15 01/31/18 04:15 Current Medications Acetaminophen (Tylenol) 650 mg PO Q6HR PRN PRN Reason: PAIN Stop: 03/30/18 23:07 Acetaminophen/Hydrocodone Bitart (Helix 5mg/325mg) 2 tab PO Q4H PRN PRN Reason: Pain (Moderate) Stop: 03/30/18 23:16 Last Admin: 01/29/18 23:29 Dose: 2 tab Acetylcysteine (Mucomyst 20%) 2 ml HHN Q4HRT [facility] Stop: 03/31/18 14:59 Last Admin: 01/31/18 11:27 Dose: 2 ml Albuterol Sulfate (Albuterol 2.5mg/3ml Neb Ud) 2.5 mg HHN Q1H PRN PRN Reason: Respiratory Distress Stop: 03/31/18 07:59 Albuterol/Ipratropium (Duoneb Neb) 3 ml HHN Q4HRT [facility] Stop: 03/31/18 14:59 Last Admin: 01/31/18 11:27 Dose: 3 ml Atorvastatin Calcium (Lipitor) 40 mg PO HS [facility] Stop: 03/31/18 20:59 Last Admin: 01/30/18 21:19 Dose: 40 mg Cinacalcet (Sensipar) 30 mg PO DAILY [facility] Stop: 03/31/18 08:59 Last Admin: 01/31/18 08:28 Dose: Not Given Diclofenac Sodium (Voltaren) 50 mg PO BID [facility] Stop: 04/01/18 08:59 Last Admin: 01/31/18 08:25 Dose: 50 mg Docusate Sodium (Colace) 100 mg PO DAILY [facility] Stop: 03/31/18 08:59 Last Admin: 01/31/18 08:26 Dose: 100 mg Epoetin Vishal (Epogen) 10,000 units SUBQ MWF@1600 [facility] Stop: 04/01/18 15:59 Furosemide (Lasix) 40 mg PO DAILY [facility] Stop: 03/31/18 08:59 Last Admin: 01/31/18 08:26 Dose: 40 mg Heparin Sodium (Porcine) (Heparin) 5,000 units IVP ONCE@2100 [facility] Stop: 01/31/18 21:01 Last Admin: 01/30/18 21:18 Dose: 5,000 units Ceftriaxone Sodium 1 gm/ (Sodium Chloride) 50 mls @ 100 mls/hr IV Q24HR [facility] Stop: 03/31/18 18:59 Last Infusion: 01/30/18 21:50 Dose: Infused Ipratropium [place] (Atrovent Neb 0.5mg/2.5ml) 0.5 mg HHN Q6HRT [facility] Stop: 03/31/18 12:59 Last Admin: 01/31/18 00:57 Dose: Not Given Lactobacillus Rhamnosus (Culturelle 15b) 1 each PO DAILY [facility] Stop: 03/30/18 23:14 Last Admin: 01/31/18 08:27 Dose: 1 each Megestrol Acetate (Megace) 400 mg PO DAILY [facility] PRN Reason: Protocol Stop: 03/31/18 08:59 Last Admin: 01/31/18 09:31 Dose: Not Given Metoprolol Tartrate (Lopressor) 50 mg PO BID [facility] Stop: 03/30/18 23:14 Last Admin: 01/31/18 08:27 Dose: 50 mg Midodrine (Proamatine) 5 mg PO TID PRN PRN Reason: HYPOTENSION Stop: 03/30/18 23:07 Miscellaneous (Vancomycin Iv Per Pharmacy) 1 ea MC PRN [facility] Stop: 03/30/18 21:44 Morphine Sulfate (Morphine) 1 mg IVP Q4HR PRN PRN Reason: Pain (Severe) Stop: 03/30/18 23:17 Last Admin: 01/31/18 08:17 Dose: 1 mg Sevelamer Carbonate (Renvela) 800 mg PO TID [facility] Stop: 03/30/18 23:14 Last Admin: 01/31/18 08:28 Dose: 800 mg Vitamin B Complex/Vit C/Folic Acid (Vitamin B Complex W/Vitamin C) 1 tab PO DAILY [facility] Stop: 03/31/18 08:59 Last Admin: 01/31/18 08:28 Dose: 1 t Lab - Result Diagrams 02/09/18 04:20 02/09/18 04:20 scheduled for HD tomorrow switched to Chest tube, drainage miriam. 300ml since am CT scan chest revealed large right effusion 2/2 compatible ATx & collapse right lung ? PNA continue Rocephin WBC @ 8.8 Nutritional Asmnt/Malnutr-PDOC - Dietary Evaluation Malnutrition Findings (Please click <Entered> for more info): Nutritional Asmnt/Malnutrition Start: 02/03/18 12: 10 Text: Status: Complete Freq: Document 02/03/18 12:10 [email or web address] (Rec: 02/03/18 12:31 [email or web address] [id number]) Nutritional Asmnt/Malnutrition Patient General Information Nutritional Screening Moderate Risk Diagnosis Rt facuial cellulitis, rt pleural effusion Pertinent Medical Hx/Surgical Hx ESRD on dialysis x 7 years, COPD, hyperlipidemia, Type 2 diabetes Subjective Information Per H&P, patient was on peritoneal dialysis up to a few months ago when he was diagnosed with peritonitis ( now on HD TTS). Per nursing notes, pt refusing some medications. Diet education not appropriate at this time. Current Diet Order/ Nutrition Support 60 gm CCHO, 1200 ml fluid restriction Patient / S.O Not Indicated Pertinent Medications lipitor, Sensipar, colace, lasix, Epogen, Megacem abx, Renvela, Vitamin B complex with C Pertinent Labs ((02/02) Cr 4.5, Ca 8.5, albumin 24 Nutritional Hx/Data Height 1.68 m Height (Calculated Centimeters) 167.6 Current Weight (lbs) 79.379 kg Weight (Calculated Kilograms) 79.4 Weight (Calculated Grams) 99226.7 [place] Body Weight 142 % [place] Body Weight 123 Body Mass Index (BMI) 28.2 Recent Weight Change No Weight Status Overweight GI Symptoms GI Symptoms None Last BM 02/02 x 1 Difficult in: None Food Allergies No Cultural/Ethnic/Hinduism Belief none indicated Usual diet at home unknown Skin Integrity/Comment: Ba 15, cellulitis facial Current %PO Good (75-100%) Estimated Nutritional Goals BEE in Kcals: Adj wt of IBW Calories/Kcals/Kg 27-32 kcal/kg using 68.2 kg Adj wt Kcals Calculated 5682-5455 kcal/day Protein: Adj wt of IBW Protein g/k.2-1.5 gm/kg (HD) Protein Calculated 80-100 gm/day Fluid: ml Per MD due to HD Nutritional Problem 1. Problem Problem Increased nutrient needs related to Etiology impaired skin integrity/ dialysis aeb Signs/Symptoms: Facial cellulitis and on HD Intervention/Recommendation Comments Consider modifying diet to 2gm sodium. Glucose/HG1AC low, no need for Diabetic restriction . Continue to monitor K and Phosphorus levels and need for Renal diet (not needed at this time.) Consider Prosource with meals for added protein due to cellulitis and HD. Expected Outcomes/Goals Expected Outcomes/Goals oral intake to meet >75% of nutrient needs, nutritino related labs normalize, weight stable.
[2018-02-09] MEDS: Epoetin Alfa 20000 Units/mL Vial SUBQ SCH (15:58)
--- NOTE | 2018-02-09 17:10 | Pathology Report ---
[id number] Collection date: 02/07/2018 Surgeon: Dr. Rachel Tapia Specimen Description: Right pleural fluid for cytology Gross Description: Received in a large plastic drainage container is approximately 1800 ml of reddish watery fluid. A sales representative publications portion is submitted for cytology processing. Microscopic Description: Examination of two cytospins and a cell block slide shows the specimen to consist of mostly proteinaceous material and red blood cells with only small numbers of inflammatory cells present consisting of mostly lymphocytes. A background also contains small numbers of macrophages and mesothelial cells. There is no evidence for atypia. Diagnosis: No cytologic evidence for malignancy (right pleural fluid cytology). [facility]# [id number] [place]
[2018-02-09] MEDS: Hydrocodone/APAP 5mg/325mg Tab PO PRN (18:04)
[2018-02-09] MEDS: cefTRIAXone 1 GM in Sodium Chloride 0.9% 50 ML IV SCH (18:04)
[2018-02-10] MEDS: Ipratropium Neb 0.5 mg/2.5 mL UD HHN SCH (02:11)
[2018-02-10] MEDS: Albuterol/Ipratropium Neb 3 ML AERS HHN SCH ×6 (02:11→23:45)
[2018-02-10 07:12] LABS: ANION GAP 10.1 (7.0-16.0); CALCIUM SERUM 8.9 mg/dL (8.6-10.3); GFR AFRICAN-AMERICAN 12.7 ml/min (>90); GFR NON AFRICAN-AMERICAN 10.5 ml/min; POTASSIUM SERUM 4.1 mEq/L (3.5-5.1)
[2018-02-10 07:29] LABS: CREATININE - SERUM 5.8 mg/dL (0.7-1.3)
[2018-02-10] MEDS: Vitamin B Complex w/Vitamin C Tab PO SCH (09:06)
[2018-02-10] MEDS: Lactobacillus Rhamnosus GG 15 Billion CFU CAP.SPRINK PO SCH (09:06)
--- NOTE | 2018-02-10 09:48 | General Progress Note ---
Subjective - Review of Systems Service Date: 02/10/18 Events since last encounter: xray today is unchanged, drainage of fluid is less, no air leak suspect atelectasis and will recommend bronchoscopy Objective - Results Result Diagrams: 02/09/18 04:20 02/10/18 05:40 Recent Labs: Laboratory Last Values WBC 8.8 Th/cmm (4.8-10.8) 02/09/18 04:20 RBC 4.06 Mil/cmm (3.80-5.80) 02/09/18 04:20 Hgb 12.2 gm/dL (12-16) 02/09/18 04:20 Hct 36.9 % (41.0-60) L 02/09/18 04:20 MCV 90.9 fl (80-99) 02/09/18 04:20 MCH 30.1 pg (27.0-31.0) 02/09/18 04:20 MCHC Differential 33.0 pg (28.0-36.0) 02/09/18 04:20 RDW 14.9 % (11.5-20.0) 02/09/18 04:20 Plt Count 355 Th/cmm (150-400) 02/09/18 04:20 MPV 6.5 fl 02/09/18 04:20 Neutrophils % 60.3 % (40.0-80.0) 02/09/18 04:20 Lymphocytes % 24.3 % (20.0-50.0) 02/09/18 04:20 Monocytes % 8.0 % (2.0-10.0) 02/09/18 04:20 Eosinophils % 6.0 % (0.0-5.0) H 02/09/18 04:20 Basophils % 1.4 % (0.0-2.0) 02/09/18 04:20 ESR 87 mm/hr (0-20) H 01/31/18 04:15 PT 9.9 SECONDS (9.5-11.5) 01/29/18 16:42 INR 0.95 (0.5-1.4) 01/29/18 16:42 PTT (Actin FS) 29.9 SECONDS (26.0-38.0) 01/29/18 16:42 Sodium 136 mEq/L (136-145) 02/10/18 05:40 Potassium 4.1 mEq/L (3.5-5.1) 02/10/18 05:40 Chloride 101 mEq/L (98-107) 02/10/18 05:40 Carbon Dioxide 29.0 mEq/L (21.0-31.0) 02/10/18 05:40 Anion Gap 10.1 (7.0-16.0) 02/10/18 05:40 BUN 18 mg/dL (7-25) 02/10/18 05:40 Creatinine 5.8 mg/dL (0.7-1.3) H* 02/10/18 05:40 Est GFR ( Amer) 12.7 ml/min (>90) 02/10/18 05:40 Est GFR (Non-Af Amer) 10.5 ml/min 02/10/18 05:40 BUN/Creatinine Ratio 3.1 02/10/18 05:40 Glucose 64 mg/dL (70-105) L 02/10/18 05:40 POC Glucose 106 MG/DL (70 - 105) H 02/08/18 12:11 Hemoglobin A1c % 3.5 % (4.0-6.0) L 01/31/18 04:15 Whole Bld Lactic Acid 0.55 mmol/L (0.60-1.99) L 01/29/18 16:42 Calcium 8.9 mg/dL (8.6-10.3) 02/10/18 05:40 Phosphorus 4.1 mg/dL (2.5-5.0) 01/31/18 04:15 Magnesium 1.8 mg/dL (1.9-2.7) L 02/07/18 05:30 Total Bilirubin 0.3 mg/dL (0.3-1.0) 02/06/18 05:35 AST 12 U/L (13-39) L 02/06/18 05:35 ALT 4 U/L (7-52) L 02/06/18 05:35 Alkaline Phosphatase 53 U/L (34-104) 02/06/18 05:35 Creatine Kinase 12 U/L (30-223) L 01/29/18 16:42 Troponin I 0.02 ng/mL (0.01-0.05) 01/29/18 16:42 C-Reactive Protein 11.4 mg/dL (0.0-0.9) H 01/31/18 04:15 Total Protein 5.9 gm/dL (6.0-8.3) L 02/06/18 05:35 Albumin 2.1 gm/dL (4.2-5.5) L 02/06/18 05:35 Globulin 3.8 gm/dL 02/06/18 05:35 Albumin/Globulin Ratio 0.6 (1.0-1.8) L 02/06/18 05:35 Triglycerides 72 mg/dL (<150) 01/31/18 04:15 Cholesterol 97 mg/dL (<200) 01/31/18 04:15 LDL Cholesterol Direct 45 mg/dL (75-193) L 01/31/18 04:15 HDL Cholesterol 36 mg/dL (23-92) 01/31/18 04:15 TSH 2.15 uIU/ml (0.34-5.60) 01/31/18 04:15 PTH Intact 36 pg/mL (15-65) 02/01/18 05:22 Urine Source MIDSTREAM 01/29/18 22:30 Urine Color YELLOW 01/29/18 22:30 Urine Clarity HAZY (CLEAR) 01/29/18 22:30 Urine pH 8.5 (4.6 - 8.0) 01/29/18 22:30 Ur Specific [place] 1.015 (1.005-1.030) 01/29/18 22:30 Urine Protein 100 mg/dL (NEGATIVE) H 01/29/18 22:30 Urine Glucose (UA) NEGATIVE mg/dL (NEGATIVE) 01/29/18 22:30 Urine Ketones NEGATIVE mg/dL (NEGATIVE) 01/29/18 22:30 Urine Blood MODERATE (NEGATIVE) H 01/29/18 22:30 Urine Nitrate NEGATIVE (NEGATIVE) 01/29/18 22:30 Urine Bilirubin NEGATIVE (NEGATIVE) 01/29/18 22:30 Urine Urobilinogen 0.2 E.U./dL (0.2 - 1.0) 01/29/18 22:30 Ur Leukocyte Esterase LARGE (NEGATIVE) H 01/29/18 22:30 Urine RBC 2-5 /hpf (0-5) H 01/29/18 22:30 Urine WBC >100 /hpf (0-5) H 01/29/18 22:30 Ur Epithelial Cells FEW /lpf (FEW) 01/29/18 22:30 Urine Bacteria MANY /hpf (NONE SEEN) H 01/29/18 22:30 Fluid Source PLEURAL 02/01/18 11:00 Fluid Color PALE YELLOW 02/01/18 11:00 Fluid Appearance HAZY 02/01/18 11:00 Fluid WBC 149 /cumm 02/01/18 11:00 Fluid RBC 185 /cumm 02/01/18 11:00 Fluid Neutrophils 2 % 02/01/18 11:00 Fluid Lymphocytes 50 % 02/01/18 11:00 Fluid Monocytes 48 % 02/01/18 11:00 Fluid Glucose 75.0 mg/dL 02/01/18 11:00 Fluid Total Protein 2.3 g/dL 02/01/18 11:00 Fluid Amylase 61 U/L 02/01/18 11:00 Random Vancomycin 22.5 ug/mL (5.0-40.0) 02/04/18 05:52 - Physical Exam Vitals and I&O: Vital Signs Temp 97 F 02/10/18 03:48 Pulse 74 02/10/18 09:08 Resp 20 02/10/18 08:27 BP 103/64 02/10/18 09:10 Pulse Ox 96 02/10/18 07:25 Intake & Output 02/09/18 02/10/18 02/10/18 18:59 06:59 18:59 Intake Total 300 200 Output Total 350 602 Balance -50 -402 Weight (lbs) 71.214 kg 71.214 kg Intake: Oral 300 200 Output: Chest Tube Drainage 350 200 Right Lower Anterior 350 200 Chest Urine 200 Stool 2 Other 200 Other: # Bowel Movements 0 Weight Source Bedscale Bedscale Active Medications: Current Medications Acetaminophen (Tylenol) 650 mg PO Q6HR PRN PRN Reason: PAIN Stop: 03/30/18 23:07 Acetaminophen/Hydrocodone Bitart ([place] 5mg/325mg) 2 tab PO Q4H PRN PRN Reason: Pain (Moderate) Stop: 03/30/18 23:16 Last Admin: 02/09/18 18:04 Dose: 2 tab Albuterol Sulfate (Albuterol 2.5mg/3ml Neb Ud) 2.5 mg HHN Q1H PRN PRN Reason: Respiratory Distress Stop: 03/31/18 07:59 Last Admin: 02/01/18 15:33 Dose: 2.5 mg Albuterol/Ipratropium (Duoneb Neb) 3 ml HHN Q4HRT AMANDA Stop: 03/31/18 14:59 Last Admin: 02/10/18 07:24 Dose: 3 ml Atorvastatin Calcium (Lipitor) 40 mg PO HS AMANDA Stop: 03/31/18 20:59 Last Admin: 02/09/18 20:45 Dose: 40 mg Cinacalcet (Sensipar) 30 mg PO DAILY AMANDA Stop: 03/31/18 08:59 Last Admin: 02/09/18 08:26 Dose: Not Given Diclofenac Sodium (Voltaren) 50 mg PO BID AMANDA Stop: 04/01/18 08:59 Last Admin: 02/10/18 09:05 Dose: 50 mg Docusate Sodium (Colace) 100 mg PO DAILY AMANDA Stop: 03/31/18 08:59 Last Admin: 02/10/18 09:06 Dose: 100 mg Epoetin Vishal (Epogen) 10,000 units SUBQ MWF@1600 AMANDA Stop: 04/01/18 15:59 Last Admin: 02/09/18 15:58 Dose: Not Given Furosemide (Lasix) 40 mg PO DAILY [facility] Stop: 03/31/18 08:59 Last Admin: 02/10/18 09:10 Dose: 40 mg Ceftriaxone Sodium 1 gm/ (Sodium Chloride) 50 mls @ 100 mls/hr IV Q24HR AMANDA Stop: 03/31/18 18:59 Last Admin: 02/09/18 18:04 Dose: 100 mls/hr Ipratropium [place] (Atrovent Neb 0.5mg/2.5ml) 0.5 mg HHN Q6HRT [facility] Stop: 03/31/18 12:59 Last Admin: 02/10/18 02:11 Dose: Not Given Lactobacillus Rhamnosus (Culturelle 15b) 1 each PO DAILY [facility] Stop: 03/30/18 23:14 Last Admin: 02/10/18 09:06 Dose: 1 each Megestrol Acetate (Megace) 400 mg PO DAILY [facility] PRN Reason: Protocol Stop: 03/31/18 08:59 Last Admin: 02/10/18 09:06 Dose: 400 mg Metoprolol Tartrate (Lopressor) 50 mg PO BID [facility] Stop: 03/30/18 23:14 Last Admin: 02/10/18 09:08 Dose: 50 mg Midodrine (Proamatine) 5 mg PO TID PRN PRN Reason: HYPOTENSION Stop: 03/30/18 23:07 Miscellaneous (Probiotic Screen) 1 ea MC PRN PRN PRN Reason: PROTOCOL Stop: 04/03/18 13:08 Miscellaneous (Clinical Monitoring) 1 ea MC DAILY PRN PRN Reason: RENAL Stop: 04/08/18 08:30 Morphine Sulfate (Morphine) 1 mg IVP Q4HR PRN PRN Reason: Pain (Severe) Stop: 03/30/18 23:17 Last Admin: 02/09/18 04:30 Dose: 1 mg Mupirocin (Bactroban Oint) 1 appl NS BID [facility] Stop: 02/11/18 17:01 Last Admin: 02/10/18 09:12 Dose: 1 appl Sevelamer Carbonate (Renvela) 800 mg PO TID [facility] Stop: 03/30/18 23:14 Last Admin: 02/10/18 09:05 Dose: 800 mg Vitamin B Complex/Vit C/Folic Acid (Vitamin B Complex W/Vitamin C) 1 tab PO DAILY [facility] Stop: 03/31/18 08:59 Last Admin: 02/10/18 09:06 Dose: 1 tab General: Alert, Oriented x3, Cooperative, No acute distress HEENT: Atraumatic, PERRLA, EOMI, Mucous membr. moist/pink Neck: Supple, +2 carotid pulse wo bruit Cardiovascular: Regular rate, Normal S1, Normal S2 Lungs: Other (increased BS right lung field, (+) chest tube) Abdomen: Bowel sounds, Soft Extremities: no Edema Neurological: Sensation intact Skin: no Rash Psych/Mental Status: Mood NL - Procedures Procedures: Procedures Procedure Code Date DRAINAGE OF R PLEURAL CAV WITH DRAIN DEV, PERC APPROACH [id number] 01/29/18 Assessment/Plan - Problem List Patient Problems: All Active Problems RIGHT FACIAL SWELLING AND PAIN (Acute) Nutritional Asmnt/Malnutr-PDOC - Dietary Evaluation Malnutrition Findings (Please click <Entered> for more info): Nutritional Asmnt/Malnutrition Start: 02/03/18 12: 10 Text: Status: Complete Freq: Document 02/03/18 12:10 MMULHERN (Rec: 02/03/18 12:31 [email or web address] [email or web address]) Nutritional Asmnt/Malnutrition Patient General Information Nutritional Screening Moderate Risk Diagnosis Rt facuial cellulitis, rt pleural effusion Pertinent Medical Hx/Surgical Hx ESRD on dialysis x 7 years, COPD, hyperlipidemia, Type 2 diabetes Subjective Information Per H&P, patient was on peritoneal dialysis up to a few months ago when he was diagnosed with peritonitis ( now on HD TTS). Per nursing notes, pt refusing some medications. Diet education not appropriate at this time. Current Diet Order/ Nutrition Support 60 gm CCHO, 1200 ml fluid restriction Patient / S.O Not Indicated Pertinent Medications lipitor, Sensipar, colace, lasix, Epogen, Megacem abx, Renvela, Vitamin B complex with C Pertinent Labs ((02/02) Cr 4.5, Ca 8.5, albumin 24 Nutritional Hx/Data Height 1.68 m Height (Calculated Centimeters) 167.6 Current Weight (lbs) 79.379 kg Weight (Calculated Kilograms) 79.4 Weight (Calculated Grams) 43794.7 [place] Body Weight 142 % [place] Body Weight 123 Body Mass Index (BMI) 28.2 Recent Weight Change No Weight Status Overweight GI Symptoms GI Symptoms None Last BM 02/02 x 1 Difficult in: None Food Allergies No Cultural/Ethnic/Restoration Belief none indicated Usual diet at home unknown Skin Integrity/Comment: Ba 15, cellulitis facial Current %PO Good (75-100%) Estimated Nutritional Goals BEE in Kcals: Adj wt of IBW Calories/Kcals/Kg 27-32 kcal/kg using 68.2 kg Adj wt Kcals Calculated 7541-1515 kcal/day Protein: Adj wt of IBW Protein g/k.2-1.5 gm/kg (HD) Protein Calculated 80-100 gm/day Fluid: ml Per MD due to HD Nutritional Problem 1. Problem Problem Increased nutrient needs related to Etiology impaired skin integrity/ dialysis aeb Signs/Symptoms: Facial cellulitis and on HD Intervention/Recommendation Comments Consider modifying diet to 2gm sodium. Glucose/HG1AC low, no need for Diabetic restriction . Continue to monitor K and Phosphorus levels and need for Renal diet (not needed at this time.) Consider Prosource with meals for added protein due to cellulitis and HD. Expected Outcomes/Goals Expected Outcomes/Goals oral intake to meet >75% of nutrient needs, nutritino related labs normalize, weight stable.
--- NOTE | 2018-02-10 10:07 | Diagnostic Imaging Report ---
Exam: Portable chest x-ray Pneumothorax. Findings: Portable upright examination of the chest at 0944 hours reviewed and compared to prior study the early unchanged in appearance. Again noted loss of volume the right hemithorax with chest tube positioning with superimposed small amount of free air collection suggestive of residual pneumothorax. Hyperexpansion left lung parenchyma appreciated. IMPRESSION: Unchanged examination of the chest compared to prior study. Follow-up exam is recommended.
--- NOTE | 2018-02-10 14:05 | General Progress Note ---
Subjective - Review of Systems Service Date: 02/10/18 Subjective: feels ok, comfortable Objective - Results Result Diagrams: 02/09/18 04:20 02/10/18 05:40 Recent Labs: Laboratory Last Values WBC 8.8 Th/cmm (4.8-10.8) 02/09/18 04:20 RBC 4.06 Mil/cmm (3.80-5.80) 02/09/18 04:20 Hgb 12.2 gm/dL (12-16) 02/09/18 04:20 Hct 36.9 % (41.0-60) L 02/09/18 04:20 MCV 90.9 fl (80-99) 02/09/18 04:20 MCH 30.1 pg (27.0-31.0) 02/09/18 04:20 MCHC Differential 33.0 pg (28.0-36.0) 02/09/18 04:20 RDW 14.9 % (11.5-20.0) 02/09/18 04:20 Plt Count 355 Th/cmm (150-400) 02/09/18 04:20 MPV 6.5 fl 02/09/18 04:20 Neutrophils % 60.3 % (40.0-80.0) 02/09/18 04:20 Lymphocytes % 24.3 % (20.0-50.0) 02/09/18 04:20 Monocytes % 8.0 % (2.0-10.0) 02/09/18 04:20 Eosinophils % 6.0 % (0.0-5.0) H 02/09/18 04:20 Basophils % 1.4 % (0.0-2.0) 02/09/18 04:20 ESR 87 mm/hr (0-20) H 01/31/18 04:15 PT 9.9 SECONDS (9.5-11.5) 01/29/18 16:42 INR 0.95 (0.5-1.4) 01/29/18 16:42 PTT (Actin FS) 29.9 SECONDS (26.0-38.0) 01/29/18 16:42 Sodium 136 mEq/L (136-145) 02/10/18 05:40 Potassium 4.1 mEq/L (3.5-5.1) 02/10/18 05:40 Chloride 101 mEq/L (98-107) 02/10/18 05:40 Carbon Dioxide 29.0 mEq/L (21.0-31.0) 02/10/18 05:40 Anion Gap 10.1 (7.0-16.0) 02/10/18 05:40 BUN 18 mg/dL (7-25) 02/10/18 05:40 Creatinine 5.8 mg/dL (0.7-1.3) H* 02/10/18 05:40 Est GFR ( Amer) 12.7 ml/min (>90) 02/10/18 05:40 Est GFR (Non-Af Amer) 10.5 ml/min 02/10/18 05:40 BUN/Creatinine Ratio 3.1 02/10/18 05:40 Glucose 64 mg/dL (70-105) L 02/10/18 05:40 POC Glucose 106 MG/DL (70 - 105) H 02/08/18 12:11 Hemoglobin A1c % 3.5 % (4.0-6.0) L 01/31/18 04:15 Whole Bld Lactic Acid 0.55 mmol/L (0.60-1.99) L 01/29/18 16:42 Calcium 8.9 mg/dL (8.6-10.3) 02/10/18 05:40 Phosphorus 4.1 mg/dL (2.5-5.0) 01/31/18 04:15 Magnesium 1.8 mg/dL (1.9-2.7) L 02/07/18 05:30 Total Bilirubin 0.3 mg/dL (0.3-1.0) 02/06/18 05:35 AST 12 U/L (13-39) L 02/06/18 05:35 ALT 4 U/L (7-52) L 02/06/18 05:35 Alkaline Phosphatase 53 U/L (34-104) 02/06/18 05:35 Creatine Kinase 12 U/L (30-223) L 01/29/18 16:42 Troponin I 0.02 ng/mL (0.01-0.05) 01/29/18 16:42 C-Reactive Protein 11.4 mg/dL (0.0-0.9) H 01/31/18 04:15 Total Protein 5.9 gm/dL (6.0-8.3) L 02/06/18 05:35 Albumin 2.1 gm/dL (4.2-5.5) L 02/06/18 05:35 Globulin 3.8 gm/dL 02/06/18 05:35 Albumin/Globulin Ratio 0.6 (1.0-1.8) L 02/06/18 05:35 Triglycerides 72 mg/dL (<150) 01/31/18 04:15 Cholesterol 97 mg/dL (<200) 01/31/18 04:15 LDL Cholesterol Direct 45 mg/dL (75-193) L 01/31/18 04:15 HDL Cholesterol 36 mg/dL (23-92) 01/31/18 04:15 TSH 2.15 uIU/ml (0.34-5.60) 01/31/18 04:15 PTH Intact 36 pg/mL (15-65) 02/01/18 05:22 Urine Source MIDSTREAM 01/29/18 22:30 Urine Color YELLOW 01/29/18 22:30 Urine Clarity HAZY (CLEAR) 01/29/18 22:30 Urine pH 8.5 (4.6 - 8.0) 01/29/18 22:30 Ur Specific [place] 1.015 (1.005-1.030) 01/29/18 22:30 Urine Protein 100 mg/dL (NEGATIVE) H 01/29/18 22:30 Urine Glucose (UA) NEGATIVE mg/dL (NEGATIVE) 01/29/18 22:30 Urine Ketones NEGATIVE mg/dL (NEGATIVE) 01/29/18 22:30 Urine Blood MODERATE (NEGATIVE) H 01/29/18 22:30 Urine Nitrate NEGATIVE (NEGATIVE) 01/29/18 22:30 Urine Bilirubin NEGATIVE (NEGATIVE) 01/29/18 22:30 Urine Urobilinogen 0.2 E.U./dL (0.2 - 1.0) 01/29/18 22:30 Ur Leukocyte Esterase LARGE (NEGATIVE) H 01/29/18 22:30 Urine RBC 2-5 /hpf (0-5) H 01/29/18 22:30 Urine WBC >100 /hpf (0-5) H 01/29/18 22:30 Ur Epithelial Cells FEW /lpf (FEW) 01/29/18 22:30 Urine Bacteria MANY /hpf (NONE SEEN) H 01/29/18 22:30 Fluid Source PLEURAL 02/01/18 11:00 Fluid Color PALE YELLOW 02/01/18 11:00 Fluid Appearance HAZY 02/01/18 11:00 Fluid WBC 149 /cumm 02/01/18 11:00 Fluid RBC 185 /cumm 02/01/18 11:00 Fluid Neutrophils 2 % 02/01/18 11:00 Fluid Lymphocytes 50 % 02/01/18 11:00 Fluid Monocytes 48 % 02/01/18 11:00 Fluid Glucose 75.0 mg/dL 02/01/18 11:00 Fluid Total Protein 2.3 g/dL 02/01/18 11:00 Fluid Amylase 61 U/L 02/01/18 11:00 Random Vancomycin 22.5 ug/mL (5.0-40.0) 02/04/18 05:52 - Physical Exam Vitals and I&O: Vital Signs Temp 97 F 02/10/18 03:48 Pulse 73 02/10/18 11:08 Resp 20 02/10/18 12:00 BP 103/64 02/10/18 09:10 Pulse Ox 95 02/10/18 11:08 Intake & Output 02/09/18 02/10/18 02/10/18 18:59 06:59 18:59 Intake Total 300 200 Output Total 350 602 Balance -50 -402 Weight (lbs) 71.214 kg 71.214 kg Intake: Oral 300 200 Output: Chest Tube Drainage 350 200 Right Lower Anterior 350 200 Chest Urine 200 Stool 2 Other 200 Other: # Bowel Movements 0 Weight Source Bedscale Bedscale Active Medications: Current Medications Acetaminophen (Tylenol) 650 mg PO Q6HR PRN PRN Reason: PAIN Stop: 03/30/18 23:07 Acetaminophen/Hydrocodone Bitart ([place] 5mg/325mg) 2 tab PO Q4H PRN PRN Reason: Pain (Moderate) Stop: 03/30/18 23:16 Last Admin: 02/09/18 18:04 Dose: 2 tab Albuterol Sulfate (Albuterol 2.5mg/3ml Neb Ud) 2.5 mg HHN Q1H PRN PRN Reason: Respiratory Distress Stop: 03/31/18 07:59 Last Admin: 02/01/18 15:33 Dose: 2.5 mg Albuterol/Ipratropium (Duoneb Neb) 3 ml HHN Q4HRT [facility] Stop: 03/31/18 14:59 Last Admin: 02/10/18 11:05 Dose: 3 ml Atorvastatin Calcium (Lipitor) 40 mg PO HS [facility] Stop: 03/31/18 20:59 Last Admin: 02/09/18 20:45 Dose: 40 mg Cinacalcet (Sensipar) 30 mg PO DAILY [facility] Stop: 03/31/18 08:59 Last Admin: 02/10/18 10:15 Dose: Not Given Diclofenac Sodium (Voltaren) 50 mg PO BID [facility] Stop: 04/01/18 08:59 Last Admin: 02/10/18 09:05 Dose: 50 mg Docusate Sodium (Colace) 100 mg PO DAILY [facility] Stop: 03/31/18 08:59 Last Admin: 02/10/18 09:06 Dose: 100 mg Epoetin Vishal (Epogen) 10,000 units SUBQ MWF@1600 [facility] Stop: 04/01/18 15:59 Last Admin: 02/09/18 15:58 Dose: Not Given Furosemide (Lasix) 40 mg PO DAILY [facility] Stop: 03/31/18 08:59 Last Admin: 02/10/18 09:10 Dose: 40 mg Ceftriaxone Sodium 1 gm/ (Sodium Chloride) 50 mls @ 100 mls/hr IV Q24HR [facility] Stop: 03/31/18 18:59 Last Admin: 02/09/18 18:04 Dose: 100 mls/hr Ipratropium [place] (Atrovent Neb 0.5mg/2.5ml) 0.5 mg HHN Q6HRT [facility] Stop: 03/31/18 12:59 Last Admin: 02/10/18 02:11 Dose: Not Given Lactobacillus Rhamnosus (Culturelle 15b) 1 each PO DAILY [facility] Stop: 03/30/18 23:14 Last Admin: 02/10/18 09:06 Dose: 1 each Megestrol Acetate (Megace) 400 mg PO DAILY [facility] PRN Reason: Protocol Stop: 03/31/18 08:59 Last Admin: 02/10/18 09:06 Dose: 400 mg Metoprolol Tartrate (Lopressor) 50 mg PO BID [facility] Stop: 03/30/18 23:14 Last Admin: 02/10/18 09:08 Dose: 50 mg Midodrine (Proamatine) 5 mg PO TID PRN PRN Reason: HYPOTENSION Stop: 03/30/18 23:07 Miscellaneous (Probiotic Screen) 1 ea MC PRN PRN PRN Reason: PROTOCOL Stop: 04/03/18 13:08 Miscellaneous (Clinical Monitoring) 1 ea MC DAILY PRN PRN Reason: RENAL Stop: 04/08/18 08:30 Morphine Sulfate (Morphine) 1 mg IVP Q4HR PRN PRN Reason: Pain (Severe) Stop: 03/30/18 23:17 Last Admin: 02/09/18 04:30 Dose: 1 mg Mupirocin (Bactroban Oint) 1 appl NS BID [facility] Stop: 02/11/18 17:01 Last Admin: 02/10/18 09:12 Dose: 1 appl Sevelamer Carbonate (Renvela) 800 mg PO TID [facility] Stop: 03/30/18 23:14 Last Admin: 02/10/18 09:05 Dose: 800 mg Vitamin B Complex/Vit C/Folic Acid (Vitamin B Complex W/Vitamin C) 1 tab PO DAILY [facility] Stop: 03/31/18 08:59 Last Admin: 02/10/18 09:06 Dose: 1 tab General: Alert, Oriented x3, Cooperative, No acute distress HEENT: Atraumatic, PERRLA, EOMI, Mucous membr. moist/pink Neck: Supple, +2 carotid pulse wo bruit Cardiovascular: Regular rate, Normal S1, Normal S2 Lungs: Other (increased BS right lung field, (+) chest tube) Abdomen: Bowel sounds, Soft Extremities: no Edema Neurological: Sensation intact Skin: no Rash Psych/Mental Status: Mood NL - Procedures Procedures: Procedures Procedure Code Date DRAINAGE OF R PLEURAL CAV WITH DRAIN DEV, PERC APPROACH [id number] 01/29/18 Assessment/Plan - Problem List Patient Problems: All Active Problems RIGHT FACIAL SWELLING AND PAIN (Acute) - Assessment Assessment: ESRD on HD Right facial cellulitis Right lung opacification 2/2 effusion S/P Chest tube Cx UTI T2DM Anemia of CD - Plan Plan: Lab - Result Diagrams 01/31/18 04:15 01/31/18 04:15 Current Medications Acetaminophen (Tylenol) 650 mg PO Q6HR PRN PRN Reason: PAIN Stop: 03/30/18 23:07 Acetaminophen/Hydrocodone Bitart ([place] 5mg/325mg) 2 tab PO Q4H PRN PRN Reason: Pain (Moderate) Stop: 03/30/18 23:16 Last Admin: 01/29/18 23:29 Dose: 2 tab Acetylcysteine (Mucomyst 20%) 2 ml HHN Q4HRT [facility] Stop: 03/31/18 14:59 Last Admin: 01/31/18 11:27 Dose: 2 ml Albuterol Sulfate (Albuterol 2.5mg/3ml Neb Ud) 2.5 mg HHN Q1H PRN PRN Reason: Respiratory Distress Stop: 03/31/18 07:59 Albuterol/Ipratropium (Duoneb Neb) 3 ml HHN Q4HRT [facility] Stop: 03/31/18 14:59 Last Admin: 01/31/18 11:27 Dose: 3 ml Atorvastatin Calcium (Lipitor) 40 mg PO HS [facility] Stop: 03/31/18 20:59 Last Admin: 01/30/18 21:19 Dose: 40 mg Cinacalcet (Sensipar) 30 mg PO DAILY [facility] Stop: 03/31/18 08:59 Last Admin: 01/31/18 08:28 Dose: Not Given Diclofenac Sodium (Voltaren) 50 mg PO BID [facility] Stop: 04/01/18 08:59 Last Admin: 01/31/18 08:25 Dose: 50 mg Docusate Sodium (Colace) 100 mg PO DAILY [facility] Stop: 03/31/18 08:59 Last Admin: 01/31/18 08:26 Dose: 100 mg Epoetin Vishal (Epogen) 10,000 units SUBQ MWF@1600 [facility] Stop: 04/01/18 15:59 Furosemide (Lasix) 40 mg PO DAILY [facility] Stop: 03/31/18 08:59 Last Admin: 01/31/18 08:26 Dose: 40 mg Heparin Sodium (Porcine) (Heparin) 5,000 units IVP ONCE@2100 [facility] Stop: 01/31/18 21:01 Last Admin: 01/30/18 21:18 Dose: 5,000 units Ceftriaxone Sodium 1 gm/ (Sodium Chloride) 50 mls @ 100 mls/hr IV Q24HR [facility] Stop: 03/31/18 18:59 Last Infusion: 01/30/18 21:50 Dose: Infused Ipratropium [place] (Atrovent Neb 0.5mg/2.5ml) 0.5 mg HHN Q6HRT [facility] Stop: 03/31/18 12:59 Last Admin: 01/31/18 00:57 Dose: Not Given Lactobacillus Rhamnosus (Culturelle 15b) 1 each PO DAILY [facility] Stop: 03/30/18 23:14 Last Admin: 01/31/18 08:27 Dose: 1 each Megestrol Acetate (Megace) 400 mg PO DAILY [facility] PRN Reason: Protocol Stop: 03/31/18 08:59 Last Admin: 01/31/18 09:31 Dose: Not Given Metoprolol Tartrate (Lopressor) 50 mg PO BID [facility] Stop: 03/30/18 23:14 Last Admin: 01/31/18 08:27 Dose: 50 mg Midodrine (Proamatine) 5 mg PO TID PRN PRN Reason: HYPOTENSION Stop: 03/30/18 23:07 Miscellaneous (Vancomycin Iv Per Pharmacy) 1 ea MC PRN [facility] Stop: 03/30/18 21:44 Morphine Sulfate (Morphine) 1 mg IVP Q4HR PRN PRN Reason: Pain (Severe) Stop: 03/30/18 23:17 Last Admin: 01/31/18 08:17 Dose: 1 mg Sevelamer Carbonate (Renvela) 800 mg PO TID [facility] Stop: 03/30/18 23:14 Last Admin: 01/31/18 08:28 Dose: 800 mg Vitamin B Complex/Vit C/Folic Acid (Vitamin B Complex W/Vitamin C) 1 tab PO DAILY [facility] Stop: 03/31/18 08:59 Last Admin: 01/31/18 08:28 Dose: 1 t Lab - Result Diagrams 02/09/18 04:20 02/10/18 05:40 scheduled for HD today switched to Chest tube, drainage miriam. [address] scan chest revealed large right effusion 2/2 compatible ATx & collapse right lung ? PNA continue Rocephin WBC @ 8.8 Nutritional Asmnt/Malnutr-PDOC - Dietary Evaluation Malnutrition Findings (Please click <Entered> for more info): Nutritional Asmnt/Malnutrition Start: 02/03/18 12: 10 Text: Status: Complete Freq: Document 02/03/18 12:10 RICO (Rec: 02/03/18 12:31 [email or web address] [email or web address]) Nutritional Asmnt/Malnutrition Patient General Information Nutritional Screening Moderate Risk Diagnosis Rt facuial cellulitis, rt pleural effusion Pertinent Medical Hx/Surgical Hx ESRD on dialysis x 7 years, COPD, hyperlipidemia, Type 2 diabetes Subjective Information Per H&P, patient was on peritoneal dialysis up to a few months ago when he was diagnosed with peritonitis ( now on HD TTS). Per nursing notes, pt refusing some medications. Diet education not appropriate at this time. Current Diet Order/ Nutrition Support 60 gm CCHO, 1200 ml fluid restriction Patient / S.O Not Indicated Pertinent Medications lipitor, Sensipar, colace, lasix, Epogen, Megacem abx, Renvela, Vitamin B complex with C Pertinent Labs ((02/02) Cr 4.5, Ca 8.5, albumin 24 Nutritional Hx/Data Height 1.68 m Height (Calculated Centimeters) 167.6 Current Weight (lbs) 79.379 kg Weight (Calculated Kilograms) 79.4 Weight (Calculated Grams) 51430.7 [place] Body Weight 142 % [place] Body Weight 123 Body Mass Index (BMI) 28.2 Recent Weight Change No Weight Status Overweight GI Symptoms GI Symptoms None Last BM 02/02 x 1 Difficult in: None Food Allergies No Cultural/Ethnic/[employer] Belief none indicated Usual diet at home unknown Skin Integrity/Comment: Ba 15, cellulitis facial Current %PO Good (75-100%) Estimated Nutritional Goals BEE in Kcals: Adj wt of IBW Calories/Kcals/Kg 27-32 kcal/kg using 68.2 kg Adj wt Kcals Calculated 7909-7813 kcal/day Protein: Adj wt of IBW Protein g/k.2-1.5 gm/kg (HD) Protein Calculated 80-100 gm/day Fluid: ml Per MD due to HD Nutritional Problem 1. Problem Problem Increased nutrient needs related to Etiology impaired skin integrity/ dialysis aeb Signs/Symptoms: Facial cellulitis and on HD Intervention/Recommendation Comments Consider modifying diet to 2gm sodium. Glucose/HG1AC low, no need for Diabetic restriction . Continue to monitor K and Phosphorus levels and need for Renal diet (not needed at this time.) Consider Prosource with meals for added protein due to cellulitis and HD. Expected Outcomes/Goals Expected Outcomes/Goals oral intake to meet >75% of nutrient needs, nutritino related labs normalize, weight stable.
[2018-02-10] MEDS: cefTRIAXone 1 GM in Sodium Chloride 0.9% 50 ML IV SCH (19:22)
[2018-02-10] MEDS: Morphine Sulfate 4 mg/mL 1mL Syr IVP PRN (21:11)
[2018-02-11] MEDS: Albuterol/Ipratropium Neb 3 ML AERS HHN SCH ×6 (03:27→22:47)
[2018-02-11] MEDS: Vitamin B Complex w/Vitamin C Tab PO SCH (08:54)
[2018-02-11] MEDS: Lactobacillus Rhamnosus GG 15 Billion CFU CAP.SPRINK PO SCH (08:54)
--- NOTE | 2018-02-11 09:25 | General Progress Note ---
Subjective - Review of Systems Service Date: 02/11/18 Events since last encounter: await decision for bronchoscopy had 150 cc drainage overnight, after suction change has drained over 200 cc this morning Objective - Results Result Diagrams: 02/09/18 04:20 02/10/18 05:40 Recent Labs: Laboratory Last Values WBC 8.8 Th/cmm (4.8-10.8) 02/09/18 04:20 RBC 4.06 Mil/cmm (3.80-5.80) 02/09/18 04:20 Hgb 12.2 gm/dL (12-16) 02/09/18 04:20 Hct 36.9 % (41.0-60) L 02/09/18 04:20 MCV 90.9 fl (80-99) 02/09/18 04:20 MCH 30.1 pg (27.0-31.0) 02/09/18 04:20 MCHC Differential 33.0 pg (28.0-36.0) 02/09/18 04:20 RDW 14.9 % (11.5-20.0) 02/09/18 04:20 Plt Count 355 Th/cmm (150-400) 02/09/18 04:20 MPV 6.5 fl 02/09/18 04:20 Neutrophils % 60.3 % (40.0-80.0) 02/09/18 04:20 Lymphocytes % 24.3 % (20.0-50.0) 02/09/18 04:20 Monocytes % 8.0 % (2.0-10.0) 02/09/18 04:20 Eosinophils % 6.0 % (0.0-5.0) H 02/09/18 04:20 Basophils % 1.4 % (0.0-2.0) 02/09/18 04:20 ESR 87 mm/hr (0-20) H 01/31/18 04:15 PT 9.9 SECONDS (9.5-11.5) 01/29/18 16:42 INR 0.95 (0.5-1.4) 01/29/18 16:42 PTT (Actin FS) 29.9 SECONDS (26.0-38.0) 01/29/18 16:42 Sodium 136 mEq/L (136-145) 02/10/18 05:40 Potassium 4.1 mEq/L (3.5-5.1) 02/10/18 05:40 Chloride 101 mEq/L (98-107) 02/10/18 05:40 Carbon Dioxide 29.0 mEq/L (21.0-31.0) 02/10/18 05:40 Anion Gap 10.1 (7.0-16.0) 02/10/18 05:40 BUN 18 mg/dL (7-25) 02/10/18 05:40 Creatinine 5.8 mg/dL (0.7-1.3) H* 02/10/18 05:40 Est GFR ( Amer) 12.7 ml/min (>90) 02/10/18 05:40 Est GFR (Non-Af Amer) 10.5 ml/min 02/10/18 05:40 BUN/Creatinine Ratio 3.1 02/10/18 05:40 Glucose 64 mg/dL (70-105) L 02/10/18 05:40 POC Glucose 106 MG/DL (70 - 105) H 02/08/18 12:11 Hemoglobin A1c % 3.5 % (4.0-6.0) L 01/31/18 04:15 Whole Bld Lactic Acid 0.55 mmol/L (0.60-1.99) L 01/29/18 16:42 Calcium 8.9 mg/dL (8.6-10.3) 02/10/18 05:40 Phosphorus 4.1 mg/dL (2.5-5.0) 01/31/18 04:15 Magnesium 1.8 mg/dL (1.9-2.7) L 02/07/18 05:30 Total Bilirubin 0.3 mg/dL (0.3-1.0) 02/06/18 05:35 AST 12 U/L (13-39) L 02/06/18 05:35 ALT 4 U/L (7-52) L 02/06/18 05:35 Alkaline Phosphatase 53 U/L (34-104) 02/06/18 05:35 Creatine Kinase 12 U/L (30-223) L 01/29/18 16:42 Troponin I 0.02 ng/mL (0.01-0.05) 01/29/18 16:42 C-Reactive Protein 11.4 mg/dL (0.0-0.9) H 01/31/18 04:15 Total Protein 5.9 gm/dL (6.0-8.3) L 02/06/18 05:35 Albumin 2.1 gm/dL (4.2-5.5) L 02/06/18 05:35 Globulin 3.8 gm/dL 02/06/18 05:35 Albumin/Globulin Ratio 0.6 (1.0-1.8) L 02/06/18 05:35 Triglycerides 72 mg/dL (<150) 01/31/18 04:15 Cholesterol 97 mg/dL (<200) 01/31/18 04:15 LDL Cholesterol Direct 45 mg/dL (75-193) L 01/31/18 04:15 HDL Cholesterol 36 mg/dL (23-92) 01/31/18 04:15 TSH 2.15 uIU/ml (0.34-5.60) 01/31/18 04:15 PTH Intact 36 pg/mL (15-65) 02/01/18 05:22 Urine Source MIDSTREAM 01/29/18 22:30 Urine Color YELLOW 01/29/18 22:30 Urine Clarity HAZY (CLEAR) 01/29/18 22:30 Urine pH 8.5 (4.6 - 8.0) 01/29/18 22:30 Ur Specific [place] 1.015 (1.005-1.030) 01/29/18 22:30 Urine Protein 100 mg/dL (NEGATIVE) H 01/29/18 22:30 Urine Glucose (UA) NEGATIVE mg/dL (NEGATIVE) 01/29/18 22:30 Urine Ketones NEGATIVE mg/dL (NEGATIVE) 01/29/18 22:30 Urine Blood MODERATE (NEGATIVE) H 01/29/18 22:30 Urine Nitrate NEGATIVE (NEGATIVE) 01/29/18 22:30 Urine Bilirubin NEGATIVE (NEGATIVE) 01/29/18 22:30 Urine Urobilinogen 0.2 E.U./dL (0.2 - 1.0) 01/29/18 22:30 Ur Leukocyte Esterase LARGE (NEGATIVE) H 01/29/18 22:30 Urine RBC 2-5 /hpf (0-5) H 01/29/18 22:30 Urine WBC >100 /hpf (0-5) H 01/29/18 22:30 Ur Epithelial Cells FEW /lpf (FEW) 01/29/18 22:30 Urine Bacteria MANY /hpf (NONE SEEN) H 01/29/18 22:30 Fluid Source PLEURAL 02/01/18 11:00 Fluid Color PALE YELLOW 02/01/18 11:00 Fluid Appearance HAZY 02/01/18 11:00 Fluid WBC 149 /cumm 02/01/18 11:00 Fluid RBC 185 /cumm 02/01/18 11:00 Fluid Neutrophils 2 % 02/01/18 11:00 Fluid Lymphocytes 50 % 02/01/18 11:00 Fluid Monocytes 48 % 02/01/18 11:00 Fluid Glucose 75.0 mg/dL 02/01/18 11:00 Fluid Total Protein 2.3 g/dL 02/01/18 11:00 Fluid Amylase 61 U/L 02/01/18 11:00 Random Vancomycin 22.5 ug/mL (5.0-40.0) 02/04/18 05:52 - Physical Exam Vitals and I&O: Vital Signs Temp 96.9 F 02/11/18 08:25 Pulse 74 02/11/18 08:54 Resp 17 02/11/18 08:25 BP 102/51 02/11/18 08:54 Pulse Ox 97 02/11/18 08:25 Intake & Output 02/10/18 02/11/18 02/11/18 18:59 06:59 18:59 Intake Total 500 170 Output Total 145 Balance 500 25 Weight (lbs) 71.214 kg 71.214 kg Intake: Intake, IV Amount 50 cefTRIAXone 1 gm In 50 Sodium Chloride 0.9% 50 ml @ 100 mls/hr IV Q24HR [facility] Rx#:[id number] Oral 500 120 Output: Chest Tube Drainage 145 Right Lower Anterior 145 Chest Other: # Voids 0 # Bowel Movements 0 Weight Source Bedscale Bedscale Active Medications: Current Medications Acetaminophen (Tylenol) 650 mg PO Q6HR PRN PRN Reason: PAIN Stop: 03/30/18 23:07 Acetaminophen/Hydrocodone Bitart ([place] 5mg/325mg) 2 tab PO Q4H PRN PRN Reason: Pain (Moderate) Stop: 03/30/18 23:16 Last Admin: 02/09/18 18:04 Dose: 2 tab Albuterol Sulfate (Albuterol 2.5mg/3ml Neb Ud) 2.5 mg HHN Q1H PRN PRN Reason: Respiratory Distress Stop: 03/31/18 07:59 Last Admin: 02/01/18 15:33 Dose: 2.5 mg Albuterol/Ipratropium (Duoneb Neb) 3 ml HHN Q4HRT [facility] Stop: 03/31/18 14:59 Last Admin: 02/11/18 07:27 Dose: 3 ml Atorvastatin Calcium (Lipitor) 40 mg PO HS AMANDA Stop: 03/31/18 20:59 Last Admin: 02/10/18 20:29 Dose: 40 mg Cinacalcet (Sensipar) 30 mg PO DAILY AMANDA Stop: 03/31/18 08:59 Last Admin: 02/11/18 08:54 Dose: Not Given Diclofenac Sodium (Voltaren) 50 mg PO BID [facility] Stop: 04/01/18 08:59 Last Admin: 02/11/18 08:53 Dose: 50 mg Docusate Sodium (Colace) 100 mg PO DAILY [facility] Stop: 03/31/18 08:59 Last Admin: 02/11/18 08:54 Dose: 100 mg Epoetin Vishal (Epogen) 10,000 units SUBQ MWF@1600 [facility] Stop: 04/01/18 15:59 Last Admin: 02/09/18 15:58 Dose: Not Given Furosemide (Lasix) 40 mg PO DAILY [facility] Stop: 03/31/18 08:59 Last Admin: 02/11/18 08:53 Dose: 40 mg Ceftriaxone Sodium 1 gm/ (Sodium Chloride) 50 mls @ 100 mls/hr IV Q24HR AMANDA Stop: 03/31/18 18:59 Last Infusion: 02/10/18 19:52 Dose: Infused Ipratropium [place] (Atrovent Neb 0.5mg/2.5ml) 0.5 mg HHN Q6HRT [facility] Stop: 03/31/18 12:59 Last Admin: 02/10/18 02:11 Dose: Not Given Lactobacillus Rhamnosus (Culturelle 15b) 1 each PO DAILY [facility] Stop: 03/30/18 23:14 Last Admin: 02/11/18 08:54 Dose: 1 each Megestrol Acetate (Megace) 400 mg PO DAILY AMANDA PRN Reason: Protocol Stop: 03/31/18 08:59 Last Admin: 02/11/18 08:54 Dose: Not Given Metoprolol Tartrate (Lopressor) 50 mg PO BID [facility] Stop: 03/30/18 23:14 Last Admin: 02/11/18 08:54 Dose: 50 mg Midodrine (Proamatine) 5 mg PO TID PRN PRN Reason: HYPOTENSION Stop: 03/30/18 23:07 Miscellaneous (Probiotic Screen) 1 ea MC PRN PRN PRN Reason: PROTOCOL Stop: 04/03/18 13:08 Miscellaneous (Clinical Monitoring) 1 ea MC DAILY PRN PRN Reason: RENAL Stop: 04/08/18 08:30 Morphine Sulfate (Morphine) 1 mg IVP Q4HR PRN PRN Reason: Pain (Severe) Stop: 03/30/18 23:17 Last Admin: 02/10/18 21:11 Dose: 1 mg Mupirocin (Bactroban Oint) 1 appl NS BID [facility] Stop: 02/11/18 17:01 Last Admin: 02/11/18 08:58 Dose: 1 appl Sevelamer Carbonate (Renvela) 800 mg PO TID [facility] Stop: 03/30/18 23:14 Last Admin: 02/11/18 08:54 Dose: 800 mg Vitamin B Complex/Vit C/Folic Acid (Vitamin B Complex W/Vitamin C) 1 tab PO DAILY [facility] Stop: 03/31/18 08:59 Last Admin: 02/11/18 08:54 Dose: 1 tab General: Alert, Oriented x3, Cooperative, No acute distress HEENT: Atraumatic, PERRLA, EOMI, Mucous membr. moist/pink Neck: Supple, +2 carotid pulse wo bruit Cardiovascular: Regular rate, Normal S1, Normal S2 Lungs: Other (increased BS right lung field, (+) chest tube) Abdomen: Bowel sounds, Soft Extremities: no Edema Neurological: Sensation intact Skin: no Rash Psych/Mental Status: Mood NL - Procedures Procedures: Procedures Procedure Code Date DRAINAGE OF R PLEURAL CAV WITH DRAIN DEV, PERC APPROACH [id number] 01/29/18 Assessment/Plan - Problem List Patient Problems: All Active Problems RIGHT FACIAL SWELLING AND PAIN (Acute) Nutritional Asmnt/Malnutr-PDOC - Dietary Evaluation Malnutrition Findings (Please click <Entered> for more info): Nutritional Asmnt/Malnutrition Start: 02/03/18 12: 10 Text: Status: Complete Freq: Document 02/03/18 12:10 [email or web address] (Rec: 02/03/18 12:31 RICO IMAN- [email or web address]) Nutritional Asmnt/Malnutrition Patient General Information Nutritional Screening Moderate Risk Diagnosis Rt facuial cellulitis, rt pleural effusion Pertinent Medical Hx/Surgical Hx ESRD on dialysis x 7 years, COPD, hyperlipidemia, Type 2 diabetes Subjective Information Per H&P, patient was on peritoneal dialysis up to a few months ago when he was diagnosed with peritonitis ( now on HD TTS). Per nursing notes, pt refusing some medications. Diet education not appropriate at this time. Current Diet Order/ Nutrition Support 60 gm CCHO, 1200 ml fluid restriction Patient / S.O Not Indicated Pertinent Medications lipitor, Sensipar, colace, lasix, Epogen, Megacem abx, Renvela, Vitamin B complex with C Pertinent Labs ((02/02) Cr 4.5, Ca 8.5, albumin 24 Nutritional Hx/Data Height 1.68 m Height (Calculated Centimeters) 167.6 Current Weight (lbs) 79.379 kg Weight (Calculated Kilograms) 79.4 Weight (Calculated Grams) 44585.7 [place] Body Weight 142 % [place] Body Weight 123 Body Mass Index (BMI) 28.2 Recent Weight Change No Weight Status Overweight GI Symptoms GI Symptoms None Last BM 02/02 x 1 Difficult in: None Food Allergies No Cultural/Ethnic/Jewish Belief none indicated Usual diet at home unknown Skin Integrity/Comment: Ba 15, cellulitis facial Current %PO Good (75-100%) Estimated Nutritional Goals BEE in Kcals: Adj wt of IBW Calories/Kcals/Kg 27-32 kcal/kg using 68.2 kg Adj wt Kcals Calculated 0580-5867 kcal/day Protein: Adj wt of IBW Protein g/k.2-1.5 gm/kg (HD) Protein Calculated 80-100 gm/day Fluid: ml Per MD due to HD Nutritional Problem 1. Problem Problem Increased nutrient needs related to Etiology impaired skin integrity/ dialysis aeb Signs/Symptoms: Facial cellulitis and on HD Intervention/Recommendation Comments Consider modifying diet to 2gm sodium. Glucose/HG1AC low, no need for Diabetic restriction . Continue to monitor K and Phosphorus levels and need for Renal diet (not needed at this time.) Consider Prosource with meals for added protein due to cellulitis and HD. Expected Outcomes/Goals Expected Outcomes/Goals oral intake to meet >75% of nutrient needs, nutritino related labs normalize, weight stable.
--- NOTE | 2018-02-11 13:53 | General Progress Note ---
Subjective - Review of Systems Service Date: 02/11/18 Subjective: feels ok, comfortable Objective - Results Result Diagrams: 02/09/18 04:20 02/10/18 05:40 Recent Labs: Laboratory Last Values WBC 8.8 Th/cmm (4.8-10.8) 02/09/18 04:20 RBC 4.06 Mil/cmm (3.80-5.80) 02/09/18 04:20 Hgb 12.2 gm/dL (12-16) 02/09/18 04:20 Hct 36.9 % (41.0-60) L 02/09/18 04:20 MCV 90.9 fl (80-99) 02/09/18 04:20 MCH 30.1 pg (27.0-31.0) 02/09/18 04:20 MCHC Differential 33.0 pg (28.0-36.0) 02/09/18 04:20 RDW 14.9 % (11.5-20.0) 02/09/18 04:20 Plt Count 355 Th/cmm (150-400) 02/09/18 04:20 MPV 6.5 fl 02/09/18 04:20 Neutrophils % 60.3 % (40.0-80.0) 02/09/18 04:20 Lymphocytes % 24.3 % (20.0-50.0) 02/09/18 04:20 Monocytes % 8.0 % (2.0-10.0) 02/09/18 04:20 Eosinophils % 6.0 % (0.0-5.0) H 02/09/18 04:20 Basophils % 1.4 % (0.0-2.0) 02/09/18 04:20 ESR 87 mm/hr (0-20) H 01/31/18 04:15 PT 9.9 SECONDS (9.5-11.5) 01/29/18 16:42 INR 0.95 (0.5-1.4) 01/29/18 16:42 PTT (Actin FS) 29.9 SECONDS (26.0-38.0) 01/29/18 16:42 Sodium 136 mEq/L (136-145) 02/10/18 05:40 Potassium 4.1 mEq/L (3.5-5.1) 02/10/18 05:40 Chloride 101 mEq/L (98-107) 02/10/18 05:40 Carbon Dioxide 29.0 mEq/L (21.0-31.0) 02/10/18 05:40 Anion Gap 10.1 (7.0-16.0) 02/10/18 05:40 BUN 18 mg/dL (7-25) 02/10/18 05:40 Creatinine 5.8 mg/dL (0.7-1.3) H* 02/10/18 05:40 Est GFR ( Amer) 12.7 ml/min (>90) 02/10/18 05:40 Est GFR (Non-Af Amer) 10.5 ml/min 02/10/18 05:40 BUN/Creatinine Ratio 3.1 02/10/18 05:40 Glucose 64 mg/dL (70-105) L 02/10/18 05:40 POC Glucose 106 MG/DL (70 - 105) H 02/08/18 12:11 Hemoglobin A1c % 3.5 % (4.0-6.0) L 01/31/18 04:15 Whole Bld Lactic Acid 0.55 mmol/L (0.60-1.99) L 01/29/18 16:42 Calcium 8.9 mg/dL (8.6-10.3) 02/10/18 05:40 Phosphorus 4.1 mg/dL (2.5-5.0) 01/31/18 04:15 Magnesium 1.8 mg/dL (1.9-2.7) L 02/07/18 05:30 Total Bilirubin 0.3 mg/dL (0.3-1.0) 02/06/18 05:35 AST 12 U/L (13-39) L 02/06/18 05:35 ALT 4 U/L (7-52) L 02/06/18 05:35 Alkaline Phosphatase 53 U/L (34-104) 02/06/18 05:35 Creatine Kinase 12 U/L (30-223) L 01/29/18 16:42 Troponin I 0.02 ng/mL (0.01-0.05) 01/29/18 16:42 C-Reactive Protein 11.4 mg/dL (0.0-0.9) H 01/31/18 04:15 Total Protein 5.9 gm/dL (6.0-8.3) L 02/06/18 05:35 Albumin 2.1 gm/dL (4.2-5.5) L 02/06/18 05:35 Globulin 3.8 gm/dL 02/06/18 05:35 Albumin/Globulin Ratio 0.6 (1.0-1.8) L 02/06/18 05:35 Triglycerides 72 mg/dL (<150) 01/31/18 04:15 Cholesterol 97 mg/dL (<200) 01/31/18 04:15 LDL Cholesterol Direct 45 mg/dL (75-193) L 01/31/18 04:15 HDL Cholesterol 36 mg/dL (23-92) 01/31/18 04:15 TSH 2.15 uIU/ml (0.34-5.60) 01/31/18 04:15 PTH Intact 36 pg/mL (15-65) 02/01/18 05:22 Urine Source MIDSTREAM 01/29/18 22:30 Urine Color YELLOW 01/29/18 22:30 Urine Clarity HAZY (CLEAR) 01/29/18 22:30 Urine pH 8.5 (4.6 - 8.0) 01/29/18 22:30 Ur Specific [place] 1.015 (1.005-1.030) 01/29/18 22:30 Urine Protein 100 mg/dL (NEGATIVE) H 01/29/18 22:30 Urine Glucose (UA) NEGATIVE mg/dL (NEGATIVE) 01/29/18 22:30 Urine Ketones NEGATIVE mg/dL (NEGATIVE) 01/29/18 22:30 Urine Blood MODERATE (NEGATIVE) H 01/29/18 22:30 Urine Nitrate NEGATIVE (NEGATIVE) 01/29/18 22:30 Urine Bilirubin NEGATIVE (NEGATIVE) 01/29/18 22:30 Urine Urobilinogen 0.2 E.U./dL (0.2 - 1.0) 01/29/18 22:30 Ur Leukocyte Esterase LARGE (NEGATIVE) H 01/29/18 22:30 Urine RBC 2-5 /hpf (0-5) H 01/29/18 22:30 Urine WBC >100 /hpf (0-5) H 01/29/18 22:30 Ur Epithelial Cells FEW /lpf (FEW) 01/29/18 22:30 Urine Bacteria MANY /hpf (NONE SEEN) H 01/29/18 22:30 Fluid Source PLEURAL 02/01/18 11:00 Fluid Color PALE YELLOW 02/01/18 11:00 Fluid Appearance HAZY 02/01/18 11:00 Fluid WBC 149 /cumm 02/01/18 11:00 Fluid RBC 185 /cumm 02/01/18 11:00 Fluid Neutrophils 2 % 02/01/18 11:00 Fluid Lymphocytes 50 % 02/01/18 11:00 Fluid Monocytes 48 % 02/01/18 11:00 Fluid Glucose 75.0 mg/dL 02/01/18 11:00 Fluid Total Protein 2.3 g/dL 02/01/18 11:00 Fluid Amylase 61 U/L 02/01/18 11:00 Random Vancomycin 22.5 ug/mL (5.0-40.0) 02/04/18 05:52 - Physical Exam Vitals and I&O: Vital Signs Temp 96.9 F 02/11/18 12:00 Pulse 63 02/11/18 12:00 Resp 17 02/11/18 12:00 BP 98/56 02/11/18 12:00 Pulse Ox 98 02/11/18 12:00 Intake & Output 02/10/18 02/11/18 02/11/18 18:59 06:59 18:59 Intake Total 500 170 Output Total 145 Balance 500 25 Weight (lbs) 71.214 kg 71.214 kg Intake: Intake, IV Amount 50 cefTRIAXone 1 gm In 50 Sodium Chloride 0.9% 50 ml @ 100 mls/hr IV Q24HR [facility] Rx#:[id number] Oral 500 120 Output: Chest Tube Drainage 145 Right Lower Anterior 145 Chest Other: # Voids 0 # Bowel Movements 0 Weight Source Bedscale Bedscale Active Medications: Current Medications Acetaminophen (Tylenol) 650 mg PO Q6HR PRN PRN Reason: PAIN Stop: 03/30/18 23:07 Acetaminophen/Hydrocodone Bitart (Hermon 5mg/325mg) 2 tab PO Q4H PRN PRN Reason: Pain (Moderate) Stop: 03/30/18 23:16 Last Admin: 02/09/18 18:04 Dose: 2 tab Albuterol Sulfate (Albuterol 2.5mg/3ml Neb Ud) 2.5 mg HHN Q1H PRN PRN Reason: Respiratory Distress Stop: 03/31/18 07:59 Last Admin: 02/01/18 15:33 Dose: 2.5 mg Albuterol/Ipratropium (Duoneb Neb) 3 ml HHN Q4HRT [facility] Stop: 03/31/18 14:59 Last Admin: 02/11/18 10:59 Dose: 3 ml Atorvastatin Calcium (Lipitor) 40 mg PO HS AMANDA Stop: 03/31/18 20:59 Last Admin: 02/10/18 20:29 Dose: 40 mg Cinacalcet (Sensipar) 30 mg PO DAILY AMNADA Stop: 03/31/18 08:59 Last Admin: 02/11/18 08:54 Dose: Not Given Diclofenac Sodium (Voltaren) 50 mg PO BID AMANDA Stop: 04/01/18 08:59 Last Admin: 02/11/18 08:53 Dose: 50 mg Docusate Sodium (Colace) 100 mg PO DAILY [facility] Stop: 03/31/18 08:59 Last Admin: 02/11/18 08:54 Dose: 100 mg Epoetin Vishal (Epogen) 10,000 units SUBQ MWF@1600 AMANDA Stop: 04/01/18 15:59 Last Admin: 02/09/18 15:58 Dose: Not Given Furosemide (Lasix) 40 mg PO DAILY [facility] Stop: 03/31/18 08:59 Last Admin: 02/11/18 08:53 Dose: 40 mg Ceftriaxone Sodium 1 gm/ (Sodium Chloride) 50 mls @ 100 mls/hr IV Q24HR AMANDA Stop: 03/31/18 18:59 Last Infusion: 02/10/18 19:52 Dose: Infused Ipratropium [place] (Atrovent Neb 0.5mg/2.5ml) 0.5 mg HHN Q6HRT [facility] Stop: 03/31/18 12:59 Last Admin: 02/10/18 02:11 Dose: Not Given Lactobacillus Rhamnosus (Culturelle 15b) 1 each PO DAILY [facility] Stop: 03/30/18 23:14 Last Admin: 02/11/18 08:54 Dose: 1 each Megestrol Acetate (Megace) 400 mg PO DAILY [facility] PRN Reason: Protocol Stop: 03/31/18 08:59 Last Admin: 02/11/18 08:54 Dose: Not Given Metoprolol Tartrate (Lopressor) 50 mg PO BID [facility] Stop: 03/30/18 23:14 Last Admin: 02/11/18 08:54 Dose: 50 mg Midodrine (Proamatine) 5 mg PO TID PRN PRN Reason: HYPOTENSION Stop: 03/30/18 23:07 Miscellaneous (Probiotic Screen) 1 ea MC PRN PRN PRN Reason: PROTOCOL Stop: 04/03/18 13:08 Miscellaneous (Clinical Monitoring) 1 ea MC DAILY PRN PRN Reason: RENAL Stop: 04/08/18 08:30 Morphine Sulfate (Morphine) 1 mg IVP Q4HR PRN PRN Reason: Pain (Severe) Stop: 03/30/18 23:17 Last Admin: 02/10/18 21:11 Dose: 1 mg Mupirocin (Bactroban Oint) 1 appl NS BID [facility] Stop: 02/11/18 17:01 Last Admin: 02/11/18 08:58 Dose: 1 appl Sevelamer Carbonate (Renvela) 800 mg PO TID [facility] Stop: 03/30/18 23:14 Last Admin: 02/11/18 08:54 Dose: 800 mg Vitamin B Complex/Vit C/Folic Acid (Vitamin B Complex W/Vitamin C) 1 tab PO DAILY [facility] Stop: 03/31/18 08:59 Last Admin: 02/11/18 08:54 Dose: 1 tab General: Alert, Oriented x3, Cooperative, No acute distress HEENT: Atraumatic, PERRLA, EOMI, Mucous membr. moist/pink Neck: Supple, +2 carotid pulse wo bruit Cardiovascular: Regular rate, Normal S1, Normal S2 Lungs: Other (increased BS right lung field, (+) chest tube) Abdomen: Bowel sounds, Soft Extremities: no Edema Neurological: Sensation intact Skin: no Rash Psych/Mental Status: Mood NL - Procedures Procedures: Procedures Procedure Code Date DRAINAGE OF R PLEURAL CAV WITH DRAIN DEV, PERC APPROACH [id number] 01/29/18 Assessment/Plan - Problem List Patient Problems: All Active Problems RIGHT FACIAL SWELLING AND PAIN (Acute) - Assessment Assessment: ESRD on HD Right facial cellulitis Right lung opacification 2/2 effusion S/P Chest tube Cx UTI T2DM Anemia of CD - Plan Plan: Lab - Result Diagrams 01/31/18 04:15 01/31/18 04:15 Current Medications Acetaminophen (Tylenol) 650 mg PO Q6HR PRN PRN Reason: PAIN Stop: 03/30/18 23:07 Acetaminophen/Hydrocodone Bitart (Hermon 5mg/325mg) 2 tab PO Q4H PRN PRN Reason: Pain (Moderate) Stop: 03/30/18 23:16 Last Admin: 01/29/18 23:29 Dose: 2 tab Acetylcysteine (Mucomyst 20%) 2 ml HHN Q4HRT AMANDA Stop: 03/31/18 14:59 Last Admin: 01/31/18 11:27 Dose: 2 ml Albuterol Sulfate (Albuterol 2.5mg/3ml Neb Ud) 2.5 mg HHN Q1H PRN PRN Reason: Respiratory Distress Stop: 03/31/18 07:59 Albuterol/Ipratropium (Duoneb Neb) 3 ml HHN Q4HRT [facility] Stop: 03/31/18 14:59 Last Admin: 01/31/18 11:27 Dose: 3 ml Atorvastatin Calcium (Lipitor) 40 mg PO HS [facility] Stop: 03/31/18 20:59 Last Admin: 01/30/18 21:19 Dose: 40 mg Cinacalcet (Sensipar) 30 mg PO DAILY [facility] Stop: 03/31/18 08:59 Last Admin: 01/31/18 08:28 Dose: Not Given Diclofenac Sodium (Voltaren) 50 mg PO BID [facility] Stop: 04/01/18 08:59 Last Admin: 01/31/18 08:25 Dose: 50 mg Docusate Sodium (Colace) 100 mg PO DAILY [facility] Stop: 03/31/18 08:59 Last Admin: 01/31/18 08:26 Dose: 100 mg Epoetin Vishal (Epogen) 10,000 units SUBQ MWF@1600 [facility] Stop: 04/01/18 15:59 Furosemide (Lasix) 40 mg PO DAILY [facility] Stop: 03/31/18 08:59 Last Admin: 01/31/18 08:26 Dose: 40 mg Heparin Sodium (Porcine) (Heparin) 5,000 units IVP ONCE@2100 [facility] Stop: 01/31/18 21:01 Last Admin: 01/30/18 21:18 Dose: 5,000 units Ceftriaxone Sodium 1 gm/ (Sodium Chloride) 50 mls @ 100 mls/hr IV Q24HR [facility] Stop: 03/31/18 18:59 Last Infusion: 01/30/18 21:50 Dose: Infused Ipratropium [place] (Atrovent Neb 0.5mg/2.5ml) 0.5 mg HHN Q6HRT [facility] Stop: 03/31/18 12:59 Last Admin: 01/31/18 00:57 Dose: Not Given Lactobacillus Rhamnosus (Culturelle 15b) 1 each PO DAILY [facility] Stop: 03/30/18 23:14 Last Admin: 01/31/18 08:27 Dose: 1 each Megestrol Acetate (Megace) 400 mg PO DAILY AMANDA PRN Reason: Protocol Stop: 03/31/18 08:59 Last Admin: 01/31/18 09:31 Dose: Not Given Metoprolol Tartrate (Lopressor) 50 mg PO BID [facility] Stop: 03/30/18 23:14 Last Admin: 01/31/18 08:27 Dose: 50 mg Midodrine (Proamatine) 5 mg PO TID PRN PRN Reason: HYPOTENSION Stop: 03/30/18 23:07 Miscellaneous (Vancomycin Iv Per Pharmacy) 1 ea MC PRN [facility] Stop: 03/30/18 21:44 Morphine Sulfate (Morphine) 1 mg IVP Q4HR PRN PRN Reason: Pain (Severe) Stop: 03/30/18 23:17 Last Admin: 01/31/18 08:17 Dose: 1 mg Sevelamer Carbonate (Renvela) 800 mg PO TID [facility] Stop: 03/30/18 23:14 Last Admin: 01/31/18 08:28 Dose: 800 mg Vitamin B Complex/Vit C/Folic Acid (Vitamin B Complex W/Vitamin C) 1 tab PO DAILY [facility] Stop: 03/31/18 08:59 Last Admin: 01/31/18 08:28 Dose: 1 t Lab - Result Diagrams 02/09/18 04:20 02/10/18 05:40 scheduled for HD tomorrow switched to Chest tube, drainage miriam. [address] scan chest revealed large right effusion 2/2 compatible ATx & collapse right lung ? PNA continue Rocephin WBC @ 8.8 Possible bronchoscopy Nutritional Asmnt/Malnutr-PDOC - Dietary Evaluation Malnutrition Findings (Please click <Entered> for more info): Nutritional Asmnt/Malnutrition Start: 02/03/18 12: 10 Text: Status: Complete Freq: Document 02/03/18 12:10 [email or web address] (Rec: 02/03/18 12:31 [place]- [email or web address]) Nutritional Asmnt/Malnutrition Patient General Information Nutritional Screening Moderate Risk Diagnosis Rt facuial cellulitis, rt pleural effusion Pertinent Medical Hx/Surgical Hx ESRD on dialysis x 7 years, COPD, hyperlipidemia, Type 2 diabetes Subjective Information Per H&P, patient was on peritoneal dialysis up to a few months ago when he was diagnosed with peritonitis ( now on HD TTS). Per nursing notes, pt refusing some medications. Diet education not appropriate at this time. Current Diet Order/ Nutrition Support 60 gm CCHO, 1200 ml fluid restriction Patient / S.O Not Indicated Pertinent Medications lipitor, Sensipar, colace, lasix, Epogen, Megacem abx, Renvela, Vitamin B complex with C Pertinent Labs ((02/02) Cr 4.5, Ca 8.5, albumin 24 Nutritional Hx/Data Height 1.68 m Height (Calculated Centimeters) 167.6 Current Weight (lbs) 79.379 kg Weight (Calculated Kilograms) 79.4 Weight (Calculated Grams) 32610.7 Peel Body Weight 142 % Peel Body Weight 123 Body Mass Index (BMI) 28.2 Recent Weight Change No Weight Status Overweight GI Symptoms GI Symptoms None Last BM 02/02 x 1 Difficult in: None Food Allergies No Cultural/Ethnic/Anabaptist Belief none indicated Usual diet at home unknown Skin Integrity/Comment: Ba 15, cellulitis facial Current %PO Good (75-100%) Estimated Nutritional Goals BEE in Kcals: Adj wt of IBW Calories/Kcals/Kg 27-32 kcal/kg using 68.2 kg Adj wt Kcals Calculated 5380-9309 kcal/day Protein: Adj wt of IBW Protein g/k.2-1.5 gm/kg (HD) Protein Calculated 80-100 gm/day Fluid: ml Per MD due to HD Nutritional Problem 1. Problem Problem Increased nutrient needs related to Etiology impaired skin integrity/ dialysis aeb Signs/Symptoms: Facial cellulitis and on HD Intervention/Recommendation Comments Consider modifying diet to 2gm sodium. Glucose/HG1AC low, no need for Diabetic restriction . Continue to monitor K and Phosphorus levels and need for Renal diet (not needed at this time.) Consider Prosource with meals for added protein due to cellulitis and HD. Expected Outcomes/Goals Expected Outcomes/Goals oral intake to meet >75% of nutrient needs, nutritino related labs normalize, weight stable.
[2018-02-11] MEDS: cefTRIAXone 1 GM in Sodium Chloride 0.9% 50 ML IV SCH (19:38)
[2018-02-12] MEDS: Albuterol/Ipratropium Neb 3 ML AERS HHN SCH ×6 (03:31→22:25)
[2018-02-12] MEDS: Ipratropium Neb 0.5 mg/2.5 mL UD HHN SCH ×2 (07:17→19:00)
[2018-02-12] MEDS: Vitamin B Complex w/Vitamin C Tab PO SCH (08:53)
[2018-02-12] MEDS: Lactobacillus Rhamnosus GG 15 Billion CFU CAP.SPRINK PO SCH (08:54)
--- NOTE | 2018-02-12 13:17 | Diagnostic Imaging Report ---
CT scan of the chest without intravenous contrast HISTORY: Pleural effusion, pneumothorax Total DLP equals 228 CTDI equals 6.0 Axial sections were obtained from a level above the clavicles down to level below the diaphragm. The exam is compared with prior study of February 05, 2018. Compared with the prior exam, there remains an approximate 40-50% right pneumothorax. Right chest tube noted. There is persistent yet somewhat decreased parenchymal density in the right lower lobe along with evidence of a small right pleural effusion. Small left pleural effusion also noted. The heart remains enlarged. Severe coronary artery and atherosclerotic vascular calcification noted. Evaluation the hilar regions limited due to the absence of intravenous contrast. IMPRESSION: 1. Little change since February 05, 2018 with a persistent right pneumothorax (40-50%). 2. Persistent yet decreased parenchymal density in the right lower lobe consistent with atelectasis and/or consolidation. Volume loss noted on the right side. 3. Small bilateral pleural effusions 4. Persistent cardiomegaly with evidence of severe coronary artery and atherosclerotic vascular changes
--- NOTE | 2018-02-12 14:27 | General Progress Note ---
Subjective - Review of Systems Service Date: 02/12/18 Subjective: feels ok, comfortable Objective - Results Result Diagrams: 02/09/18 04:20 02/10/18 05:40 Recent Labs: Laboratory Last Values WBC 8.8 Th/cmm (4.8-10.8) 02/09/18 04:20 RBC 4.06 Mil/cmm (3.80-5.80) 02/09/18 04:20 Hgb 12.2 gm/dL (12-16) 02/09/18 04:20 Hct 36.9 % (41.0-60) L 02/09/18 04:20 MCV 90.9 fl (80-99) 02/09/18 04:20 MCH 30.1 pg (27.0-31.0) 02/09/18 04:20 MCHC Differential 33.0 pg (28.0-36.0) 02/09/18 04:20 RDW 14.9 % (11.5-20.0) 02/09/18 04:20 Plt Count 355 Th/cmm (150-400) 02/09/18 04:20 MPV 6.5 fl 02/09/18 04:20 Neutrophils % 60.3 % (40.0-80.0) 02/09/18 04:20 Lymphocytes % 24.3 % (20.0-50.0) 02/09/18 04:20 Monocytes % 8.0 % (2.0-10.0) 02/09/18 04:20 Eosinophils % 6.0 % (0.0-5.0) H 02/09/18 04:20 Basophils % 1.4 % (0.0-2.0) 02/09/18 04:20 ESR 87 mm/hr (0-20) H 01/31/18 04:15 PT 9.9 SECONDS (9.5-11.5) 01/29/18 16:42 INR 0.95 (0.5-1.4) 01/29/18 16:42 PTT (Actin FS) 29.9 SECONDS (26.0-38.0) 01/29/18 16:42 Sodium 136 mEq/L (136-145) 02/10/18 05:40 Potassium 4.1 mEq/L (3.5-5.1) 02/10/18 05:40 Chloride 101 mEq/L (98-107) 02/10/18 05:40 Carbon Dioxide 29.0 mEq/L (21.0-31.0) 02/10/18 05:40 Anion Gap 10.1 (7.0-16.0) 02/10/18 05:40 BUN 18 mg/dL (7-25) 02/10/18 05:40 Creatinine 5.8 mg/dL (0.7-1.3) H* 02/10/18 05:40 Est GFR ( Amer) 12.7 ml/min (>90) 02/10/18 05:40 Est GFR (Non-Af Amer) 10.5 ml/min 02/10/18 05:40 BUN/Creatinine Ratio 3.1 02/10/18 05:40 Glucose 64 mg/dL (70-105) L 02/10/18 05:40 POC Glucose 106 MG/DL (70 - 105) H 02/08/18 12:11 Hemoglobin A1c % 3.5 % (4.0-6.0) L 01/31/18 04:15 Whole Bld Lactic Acid 0.55 mmol/L (0.60-1.99) L 01/29/18 16:42 Calcium 8.9 mg/dL (8.6-10.3) 02/10/18 05:40 Phosphorus 4.1 mg/dL (2.5-5.0) 01/31/18 04:15 Magnesium 1.8 mg/dL (1.9-2.7) L 02/07/18 05:30 Total Bilirubin 0.3 mg/dL (0.3-1.0) 02/06/18 05:35 AST 12 U/L (13-39) L 02/06/18 05:35 ALT 4 U/L (7-52) L 02/06/18 05:35 Alkaline Phosphatase 53 U/L (34-104) 02/06/18 05:35 Creatine Kinase 12 U/L (30-223) L 01/29/18 16:42 Troponin I 0.02 ng/mL (0.01-0.05) 01/29/18 16:42 C-Reactive Protein 11.4 mg/dL (0.0-0.9) H 01/31/18 04:15 Total Protein 5.9 gm/dL (6.0-8.3) L 02/06/18 05:35 Albumin 2.1 gm/dL (4.2-5.5) L 02/06/18 05:35 Globulin 3.8 gm/dL 02/06/18 05:35 Albumin/Globulin Ratio 0.6 (1.0-1.8) L 02/06/18 05:35 Triglycerides 72 mg/dL (<150) 01/31/18 04:15 Cholesterol 97 mg/dL (<200) 01/31/18 04:15 LDL Cholesterol Direct 45 mg/dL (75-193) L 01/31/18 04:15 HDL Cholesterol 36 mg/dL (23-92) 01/31/18 04:15 TSH 2.15 uIU/ml (0.34-5.60) 01/31/18 04:15 PTH Intact 36 pg/mL (15-65) 02/01/18 05:22 Urine Source MIDSTREAM 01/29/18 22:30 Urine Color YELLOW 01/29/18 22:30 Urine Clarity HAZY (CLEAR) 01/29/18 22:30 Urine pH 8.5 (4.6 - 8.0) 01/29/18 22:30 Ur Specific [place] 1.015 (1.005-1.030) 01/29/18 22:30 Urine Protein 100 mg/dL (NEGATIVE) H 01/29/18 22:30 Urine Glucose (UA) NEGATIVE mg/dL (NEGATIVE) 01/29/18 22:30 Urine Ketones NEGATIVE mg/dL (NEGATIVE) 01/29/18 22:30 Urine Blood MODERATE (NEGATIVE) H 01/29/18 22:30 Urine Nitrate NEGATIVE (NEGATIVE) 01/29/18 22:30 Urine Bilirubin NEGATIVE (NEGATIVE) 01/29/18 22:30 Urine Urobilinogen 0.2 E.U./dL (0.2 - 1.0) 01/29/18 22:30 Ur Leukocyte Esterase LARGE (NEGATIVE) H 01/29/18 22:30 Urine RBC 2-5 /hpf (0-5) H 01/29/18 22:30 Urine WBC >100 /hpf (0-5) H 01/29/18 22:30 Ur Epithelial Cells FEW /lpf (FEW) 01/29/18 22:30 Urine Bacteria MANY /hpf (NONE SEEN) H 01/29/18 22:30 Fluid Source PLEURAL 02/01/18 11:00 Fluid Color PALE YELLOW 02/01/18 11:00 Fluid Appearance HAZY 02/01/18 11:00 Fluid WBC 149 /cumm 02/01/18 11:00 Fluid RBC 185 /cumm 02/01/18 11:00 Fluid Neutrophils 2 % 02/01/18 11:00 Fluid Lymphocytes 50 % 02/01/18 11:00 Fluid Monocytes 48 % 02/01/18 11:00 Fluid Glucose 75.0 mg/dL 02/01/18 11:00 Fluid Total Protein 2.3 g/dL 02/01/18 11:00 Fluid Amylase 61 U/L 02/01/18 11:00 Random Vancomycin 22.5 ug/mL (5.0-40.0) 02/04/18 05:52 - Physical Exam Vitals and I&O: Vital Signs Temp 97 F 02/12/18 12:00 Pulse 64 02/12/18 12:00 Resp 18 02/12/18 12:00 BP 117/56 02/12/18 12:00 Pulse Ox 93 02/12/18 12:00 Intake & Output 02/11/18 02/12/18 02/12/18 18:59 06:59 18:59 Intake Total 720 Output Total 130 Balance 590 Weight (lbs) 71.214 kg Intake: Intake, IV Amount 50 cefTRIAXone 1 gm In 50 Sodium Chloride 0.9% 50 ml @ 100 mls/hr IV Q24HR [facility] Rx#:[id number] Oral 670 Output: Chest Tube Drainage 130 Right Lower Anterior 130 Chest Other: # Voids 3 # Bowel Movements 0 Weight Source Bedscale Active Medications: Current Medications Acetaminophen (Tylenol) 650 mg PO Q6HR PRN PRN Reason: PAIN Stop: 03/30/18 23:07 Acetaminophen/Hydrocodone Bitart ([place] 5mg/325mg) 2 tab PO Q4H PRN PRN Reason: Pain (Moderate) Stop: 03/30/18 23:16 Last Admin: 02/09/18 18:04 Dose: 2 tab Albuterol Sulfate (Albuterol 2.5mg/3ml Neb Ud) 2.5 mg HHN Q1H PRN PRN Reason: Respiratory Distress Stop: 03/31/18 07:59 Last Admin: 02/01/18 15:33 Dose: 2.5 mg Albuterol/Ipratropium (Duoneb Neb) 3 ml HHN Q4HRT AMANDA Stop: 03/31/18 14:59 Last Admin: 02/12/18 11:30 Dose: 3 ml Atorvastatin Calcium (Lipitor) 40 mg PO HS AMANDA Stop: 03/31/18 20:59 Last Admin: 02/11/18 20:30 Dose: 40 mg Cinacalcet (Sensipar) 30 mg PO DAILY AMANDA Stop: 03/31/18 08:59 Last Admin: 02/12/18 08:53 Dose: 30 mg Diclofenac Sodium (Voltaren) 50 mg PO BID AMANDA Stop: 04/01/18 08:59 Last Admin: 02/12/18 08:54 Dose: 50 mg Docusate Sodium (Colace) 100 mg PO DAILY [facility] Stop: 03/31/18 08:59 Last Admin: 02/12/18 08:54 Dose: 100 mg Epoetin Vishal (Epogen) 10,000 units SUBQ MWF@1600 [facility] Stop: 04/01/18 15:59 Last Admin: 02/09/18 15:58 Dose: Not Given Furosemide (Lasix) 40 mg PO DAILY AMANDA Stop: 03/31/18 08:59 Last Admin: 02/12/18 08:53 Dose: 40 mg Ceftriaxone Sodium 1 gm/ (Sodium Chloride) 50 mls @ 100 mls/hr IV Q24HR [facility] Stop: 03/31/18 18:59 Last Infusion: 02/11/18 20:08 Dose: Infused Ipratropium [place] (Atrovent Neb 0.5mg/2.5ml) 0.5 mg HHN Q6HRT AMANDA Stop: 03/31/18 12:59 Last Admin: 02/12/18 07:17 Dose: Not Given Lactobacillus Rhamnosus (Culturelle 15b) 1 each PO DAILY AMANDA Stop: 03/30/18 23:14 Last Admin: 02/12/18 08:54 Dose: 1 each Megestrol Acetate (Megace) 400 mg PO DAILY [facility] PRN Reason: Protocol Stop: 03/31/18 08:59 Last Admin: 02/12/18 08:54 Dose: 400 mg Metoprolol Tartrate (Lopressor) 50 mg PO BID AMANDA Stop: 03/30/18 23:14 Last Admin: 02/12/18 08:53 Dose: 50 mg Midodrine (Proamatine) 5 mg PO TID PRN PRN Reason: HYPOTENSION Stop: 03/30/18 23:07 Miscellaneous (Probiotic Screen) 1 ea MC PRN PRN PRN Reason: PROTOCOL Stop: 04/03/18 13:08 Miscellaneous (Clinical Monitoring) 1 ea MC DAILY PRN PRN Reason: RENAL Stop: 04/08/18 08:30 Morphine Sulfate (Morphine) 1 mg IVP Q4HR PRN PRN Reason: Pain (Severe) Stop: 03/30/18 23:17 Last Admin: 02/10/18 21:11 Dose: 1 mg Sevelamer Carbonate (Renvela) 800 mg PO TID AMANDA Stop: 03/30/18 23:14 Last Admin: 02/12/18 13:38 Dose: Not Given Vitamin B Complex/Vit C/Folic Acid (Vitamin B Complex W/Vitamin C) 1 tab PO DAILY AMANDA Stop: 03/31/18 08:59 Last Admin: 02/12/18 08:53 Dose: 1 tab General: Alert, Oriented x3, Cooperative, No acute distress HEENT: Atraumatic, PERRLA, EOMI, Mucous membr. moist/pink Neck: Supple, +2 carotid pulse wo bruit Cardiovascular: Regular rate, Normal S1, Normal S2 Lungs: Other (increased BS right lung field, (+) chest tube) Abdomen: Bowel sounds, Soft Extremities: no Edema Neurological: Sensation intact Skin: no Rash Psych/Mental Status: Mood NL - Procedures Procedures: Procedures Procedure Code Date DRAINAGE OF R PLEURAL CAV WITH DRAIN DEV, PERC APPROACH [id number] 01/29/18 Assessment/Plan - Problem List Patient Problems: All Active Problems RIGHT FACIAL SWELLING AND PAIN (Acute) - Assessment Assessment: ESRD on HD Right facial cellulitis Right lung opacification 2/2 effusion S/P Chest tube Cx UTI T2DM Anemia of CD - Plan Plan: Lab - Result Diagrams 01/31/18 04:15 01/31/18 04:15 Current Medications Acetaminophen (Tylenol) 650 mg PO Q6HR PRN PRN Reason: PAIN Stop: 03/30/18 23:07 Acetaminophen/Hydrocodone Bitart ([place] 5mg/325mg) 2 tab PO Q4H PRN PRN Reason: Pain (Moderate) Stop: 03/30/18 23:16 Last Admin: 01/29/18 23:29 Dose: 2 tab Acetylcysteine (Mucomyst 20%) 2 ml HHN Q4HRT AMANDA Stop: 03/31/18 14:59 Last Admin: 01/31/18 11:27 Dose: 2 ml Albuterol Sulfate (Albuterol 2.5mg/3ml Neb Ud) 2.5 mg HHN Q1H PRN PRN Reason: Respiratory Distress Stop: 03/31/18 07:59 Albuterol/Ipratropium (Duoneb Neb) 3 ml HHN Q4HRT AMANDA Stop: 03/31/18 14:59 Last Admin: 01/31/18 11:27 Dose: 3 ml Atorvastatin Calcium (Lipitor) 40 mg PO HS [facility] Stop: 03/31/18 20:59 Last Admin: 01/30/18 21:19 Dose: 40 mg Cinacalcet (Sensipar) 30 mg PO DAILY AMANDA Stop: 03/31/18 08:59 Last Admin: 01/31/18 08:28 Dose: Not Given Diclofenac Sodium (Voltaren) 50 mg PO BID AMANDA Stop: 04/01/18 08:59 Last Admin: 01/31/18 08:25 Dose: 50 mg Docusate Sodium (Colace) 100 mg PO DAILY AMNADA Stop: 03/31/18 08:59 Last Admin: 01/31/18 08:26 Dose: 100 mg Epoetin Vishal (Epogen) 10,000 units SUBQ MWF@1600 [facility] Stop: 04/01/18 15:59 Furosemide (Lasix) 40 mg PO DAILY AMANDA Stop: 03/31/18 08:59 Last Admin: 01/31/18 08:26 Dose: 40 mg Heparin Sodium (Porcine) (Heparin) 5,000 units IVP ONCE@2100 [facility] Stop: 01/31/18 21:01 Last Admin: 01/30/18 21:18 Dose: 5,000 units Ceftriaxone Sodium 1 gm/ (Sodium Chloride) 50 mls @ 100 mls/hr IV Q24HR AMANDA Stop: 03/31/18 18:59 Last Infusion: 01/30/18 21:50 Dose: Infused Ipratropium [place] (Atrovent Neb 0.5mg/2.5ml) 0.5 mg HHN Q6HRT AMANDA Stop: 03/31/18 12:59 Last Admin: 01/31/18 00:57 Dose: Not Given Lactobacillus Rhamnosus (Culturelle 15b) 1 each PO DAILY [facility] Stop: 03/30/18 23:14 Last Admin: 01/31/18 08:27 Dose: 1 each Megestrol Acetate (Megace) 400 mg PO DAILY AMANDA PRN Reason: Protocol Stop: 03/31/18 08:59 Last Admin: 01/31/18 09:31 Dose: Not Given Metoprolol Tartrate (Lopressor) 50 mg PO BID [facility] Stop: 03/30/18 23:14 Last Admin: 01/31/18 08:27 Dose: 50 mg Midodrine (Proamatine) 5 mg PO TID PRN PRN Reason: HYPOTENSION Stop: 03/30/18 23:07 Miscellaneous (Vancomycin Iv Per Pharmacy) 1 ea MC PRN [facility] Stop: 03/30/18 21:44 Morphine Sulfate (Morphine) 1 mg IVP Q4HR PRN PRN Reason: Pain (Severe) Stop: 03/30/18 23:17 Last Admin: 01/31/18 08:17 Dose: 1 mg Sevelamer Carbonate (Renvela) 800 mg PO TID [facility] Stop: 03/30/18 23:14 Last Admin: 01/31/18 08:28 Dose: 800 mg Vitamin B Complex/Vit C/Folic Acid (Vitamin B Complex W/Vitamin C) 1 tab PO DAILY [facility] Stop: 03/31/18 08:59 Last Admin: 01/31/18 08:28 Dose: 1 t Lab - Result Diagrams 02/09/18 04:20 02/10/18 05:40 scheduled for HD tomorrow switched to Chest tube, drainage miriam. [address] scan chest revealed large right effusion 2/2 compatible ATx & collapse right lung ? PNA continue Rocephin WBC @ 8.8 Possible bronchoscopy in am Nutritional Asmnt/Malnutr-PDOC - Dietary Evaluation Malnutrition Findings (Please click <Entered> for more info): Nutritional Asmnt/Malnutrition Start: 02/03/18 12: 10 Text: Status: Complete Freq: Document 02/03/18 12:10 [email or web address] (Rec: 02/03/18 12:31 [email or web address] [id number]) Nutritional Asmnt/Malnutrition Patient General Information Nutritional Screening Moderate Risk Diagnosis Rt facuial cellulitis, rt pleural effusion Pertinent Medical Hx/Surgical Hx ESRD on dialysis x 7 years, COPD, hyperlipidemia, Type 2 diabetes Subjective Information Per H&P, patient was on peritoneal dialysis up to a few months ago when he was diagnosed with peritonitis ( now on HD TTS). Per nursing notes, pt refusing some medications. Diet education not appropriate at this time. Current Diet Order/ Nutrition Support 60 gm CCHO, 1200 ml fluid restriction Patient / S.O Not Indicated Pertinent Medications lipitor, Sensipar, colace, lasix, Epogen, [place] abx, Renvela, Vitamin B complex with C Pertinent Labs ((02/02) Cr 4.5, Ca 8.5, albumin 24 Nutritional Hx/Data Height 1.68 m Height (Calculated Centimeters) 167.6 Current Weight (lbs) 79.379 kg Weight (Calculated Kilograms) 79.4 Weight (Calculated Grams) 86773.7 [place] Body Weight 142 % [place] Body Weight 123 Body Mass Index (BMI) 28.2 Recent Weight Change No Weight Status Overweight GI Symptoms GI Symptoms None Last BM 02/02 x 1 Difficult in: None Food Allergies No Cultural/Ethnic/Anab[employer]ism Belief none indicated Usual diet at home unknown Skin Integrity/Comment: Ba 15, cellulitis facial Current %PO Good (75-100%) Estimated Nutritional Goals BEE in Kcals: Adj wt of IBW Calories/Kcals/Kg 27-32 kcal/kg using 68.2 kg Adj wt Kcals Calculated 9804-6141 kcal/day Protein: Adj wt of IBW Protein g/k.2-1.5 gm/kg (HD) Protein Calculated 80-100 gm/day Fluid: ml Per MD due to HD Nutritional Problem 1. Problem Problem Increased nutrient needs related to Etiology impaired skin integrity/ dialysis aeb Signs/Symptoms: Facial cellulitis and on HD Intervention/Recommendation Comments Consider modifying diet to 2gm sodium. Glucose/HG1AC low, no need for Diabetic restriction . Continue to monitor K and Phosphorus levels and need for Renal diet (not needed at this time.) Consider Prosource with meals for added protein due to cellulitis and HD. Expected Outcomes/Goals Expected Outcomes/Goals oral intake to meet >75% of nutrient needs, nutritino related labs normalize, weight stable.
[2018-02-12] MEDS: Epoetin Alfa 20000 Units/mL Vial SUBQ SCH (16:41)
[2018-02-12] MEDS: cefTRIAXone 1 GM in Sodium Chloride 0.9% 50 ML IV SCH (20:58)
[2018-02-12] MEDS: Hydrocodone/APAP 5mg/325mg Tab PO PRN (20:59)
[2018-02-13] MEDS: Albuterol/Ipratropium Neb 3 ML AERS HHN SCH ×6 (02:02→23:33)
[2018-02-13] MEDS: Ipratropium Neb 0.5 mg/2.5 mL UD HHN SCH ×3 (02:02→13:00)
[2018-02-13] MEDS ORDERED: Probiotic Screen MC PRN (09:45)
[2018-02-13] MEDS: Albumin 25% 25gm/100mL 25 GM/100 ML BTL IV SCH (10:58)
--- NOTE | 2018-02-13 11:10 | General Progress Note ---
Subjective - Review of Systems Service Date: 02/13/18 Subjective: sleeping, comfortable Objective - Results Result Diagrams: 02/09/18 04:20 02/10/18 05:40 Recent Labs: Laboratory Last Values WBC 8.8 Th/cmm (4.8-10.8) 02/09/18 04:20 RBC 4.06 Mil/cmm (3.80-5.80) 02/09/18 04:20 Hgb 12.2 gm/dL (12-16) 02/09/18 04:20 Hct 36.9 % (41.0-60) L 02/09/18 04:20 MCV 90.9 fl (80-99) 02/09/18 04:20 MCH 30.1 pg (27.0-31.0) 02/09/18 04:20 MCHC Differential 33.0 pg (28.0-36.0) 02/09/18 04:20 RDW 14.9 % (11.5-20.0) 02/09/18 04:20 Plt Count 355 Th/cmm (150-400) 02/09/18 04:20 MPV 6.5 fl 02/09/18 04:20 Neutrophils % 60.3 % (40.0-80.0) 02/09/18 04:20 Lymphocytes % 24.3 % (20.0-50.0) 02/09/18 04:20 Monocytes % 8.0 % (2.0-10.0) 02/09/18 04:20 Eosinophils % 6.0 % (0.0-5.0) H 02/09/18 04:20 Basophils % 1.4 % (0.0-2.0) 02/09/18 04:20 ESR 87 mm/hr (0-20) H 01/31/18 04:15 PT 9.9 SECONDS (9.5-11.5) 01/29/18 16:42 INR 0.95 (0.5-1.4) 01/29/18 16:42 PTT (Actin FS) 29.9 SECONDS (26.0-38.0) 01/29/18 16:42 Sodium 136 mEq/L (136-145) 02/10/18 05:40 Potassium 4.1 mEq/L (3.5-5.1) 02/10/18 05:40 Chloride 101 mEq/L (98-107) 02/10/18 05:40 Carbon Dioxide 29.0 mEq/L (21.0-31.0) 02/10/18 05:40 Anion Gap 10.1 (7.0-16.0) 02/10/18 05:40 BUN 18 mg/dL (7-25) 02/10/18 05:40 Creatinine 5.8 mg/dL (0.7-1.3) H* 02/10/18 05:40 Est GFR ( Amer) 12.7 ml/min (>90) 02/10/18 05:40 Est GFR (Non-Af Amer) 10.5 ml/min 02/10/18 05:40 BUN/Creatinine Ratio 3.1 02/10/18 05:40 Glucose 64 mg/dL (70-105) L 02/10/18 05:40 POC Glucose 106 MG/DL (70 - 105) H 02/08/18 12:11 Hemoglobin A1c % 3.5 % (4.0-6.0) L 01/31/18 04:15 Whole Bld Lactic Acid 0.55 mmol/L (0.60-1.99) L 01/29/18 16:42 Calcium 8.9 mg/dL (8.6-10.3) 02/10/18 05:40 Phosphorus 4.1 mg/dL (2.5-5.0) 01/31/18 04:15 Magnesium 1.8 mg/dL (1.9-2.7) L 02/07/18 05:30 Total Bilirubin 0.3 mg/dL (0.3-1.0) 02/06/18 05:35 AST 12 U/L (13-39) L 02/06/18 05:35 ALT 4 U/L (7-52) L 02/06/18 05:35 Alkaline Phosphatase 53 U/L (34-104) 02/06/18 05:35 Creatine Kinase 12 U/L (30-223) L 01/29/18 16:42 Troponin I 0.02 ng/mL (0.01-0.05) 01/29/18 16:42 C-Reactive Protein 11.4 mg/dL (0.0-0.9) H 01/31/18 04:15 Total Protein 5.9 gm/dL (6.0-8.3) L 02/06/18 05:35 Albumin 2.1 gm/dL (4.2-5.5) L 02/06/18 05:35 Globulin 3.8 gm/dL 02/06/18 05:35 Albumin/Globulin Ratio 0.6 (1.0-1.8) L 02/06/18 05:35 Triglycerides 72 mg/dL (<150) 01/31/18 04:15 Cholesterol 97 mg/dL (<200) 01/31/18 04:15 LDL Cholesterol Direct 45 mg/dL (75-193) L 01/31/18 04:15 HDL Cholesterol 36 mg/dL (23-92) 01/31/18 04:15 TSH 2.15 uIU/ml (0.34-5.60) 01/31/18 04:15 PTH Intact 36 pg/mL (15-65) 02/01/18 05:22 Urine Source MIDSTREAM 01/29/18 22:30 Urine Color YELLOW 01/29/18 22:30 Urine Clarity HAZY (CLEAR) 01/29/18 22:30 Urine pH 8.5 (4.6 - 8.0) 01/29/18 22:30 Ur Specific [place] 1.015 (1.005-1.030) 01/29/18 22:30 Urine Protein 100 mg/dL (NEGATIVE) H 01/29/18 22:30 Urine Glucose (UA) NEGATIVE mg/dL (NEGATIVE) 01/29/18 22:30 Urine Ketones NEGATIVE mg/dL (NEGATIVE) 01/29/18 22:30 Urine Blood MODERATE (NEGATIVE) H 01/29/18 22:30 Urine Nitrate NEGATIVE (NEGATIVE) 01/29/18 22:30 Urine Bilirubin NEGATIVE (NEGATIVE) 01/29/18 22:30 Urine Urobilinogen 0.2 E.U./dL (0.2 - 1.0) 01/29/18 22:30 Ur Leukocyte Esterase LARGE (NEGATIVE) H 01/29/18 22:30 Urine RBC 2-5 /hpf (0-5) H 01/29/18 22:30 Urine WBC >100 /hpf (0-5) H 01/29/18 22:30 Ur Epithelial Cells FEW /lpf (FEW) 01/29/18 22:30 Urine Bacteria MANY /hpf (NONE SEEN) H 01/29/18 22:30 Fluid Source PLEURAL 02/01/18 11:00 Fluid Color PALE YELLOW 02/01/18 11:00 Fluid Appearance HAZY 02/01/18 11:00 Fluid WBC 149 /cumm 02/01/18 11:00 Fluid RBC 185 /cumm 02/01/18 11:00 Fluid Neutrophils 2 % 02/01/18 11:00 Fluid Lymphocytes 50 % 02/01/18 11:00 Fluid Monocytes 48 % 02/01/18 11:00 Fluid Glucose 75.0 mg/dL 02/01/18 11:00 Fluid Total Protein 2.3 g/dL 02/01/18 11:00 Fluid Amylase 61 U/L 02/01/18 11:00 Random Vancomycin 22.5 ug/mL (5.0-40.0) 02/04/18 05:52 - Physical Exam Vitals and I&O: Vital Signs Temp 96.4 F 02/13/18 08:00 Pulse 58 02/13/18 10:52 Resp 18 02/13/18 10:52 BP 104/54 02/13/18 09:12 Pulse Ox 93 02/13/18 10:52 Intake & Output 02/12/18 02/13/18 02/13/18 18:59 06:59 18:59 Intake Total 100 240 Output Total 201 90 Balance -101 150 Weight (lbs) 79.379 kg 78.925 kg Intake: Oral 100 240 Output: Chest Tube Drainage 90 Right Lower Anterior 90 Chest Urine 200 Stool 1 Other: Stool Characteristics Soft Brown Weight Source Bedscale Bedscale Active Medications: Current Medications Acetaminophen (Tylenol) 650 mg PO Q6HR PRN PRN Reason: PAIN Stop: 03/30/18 23:07 Acetaminophen/Hydrocodone Bitart ([place] 5mg/325mg) 2 tab PO Q4H PRN PRN Reason: Pain (Moderate) Stop: 03/30/18 23:16 Last Admin: 02/12/18 20:59 Dose: 2 tab Albuterol Sulfate (Albuterol 2.5mg/3ml Neb Ud) 2.5 mg HHN Q1H PRN PRN Reason: Respiratory Distress Stop: 03/31/18 07:59 Last Admin: 02/01/18 15:33 Dose: 2.5 mg Albuterol/Ipratropium (Duoneb Neb) 3 ml HHN Q4HRT AMANDA Stop: 03/31/18 14:59 Last Admin: 02/13/18 10:58 Dose: Not Given Atorvastatin Calcium (Lipitor) 40 mg PO HS AMANDA Stop: 03/31/18 20:59 Last Admin: 02/12/18 20:59 Dose: 40 mg Cinacalcet (Sensipar) 30 mg PO DAILY AMANDA Stop: 03/31/18 08:59 Last Admin: 02/12/18 08:53 Dose: 30 mg Diclofenac Sodium (Voltaren) 50 mg PO BID [facility]ANDA Stop: 04/01/18 08:59 Last Admin: 02/12/18 16:39 Dose: 50 mg Docusate Sodium (Colace) 100 mg PO DAILY [facility]ANDA Stop: 03/31/18 08:59 Last Admin: 02/12/18 08:54 Dose: 100 mg Epoetin Vishal (Epogen) 10,000 units SUBQ MWF@1600 [facility] Stop: 04/01/18 15:59 Last Admin: 02/12/18 16:41 Dose: Not Given Ceftriaxone Sodium 1 gm/ (Sodium Chloride) 50 mls @ 100 mls/hr IV Q24HR AMANDA Stop: 03/31/18 18:59 Last Admin: 02/12/18 20:58 Dose: 100 mls/hr Albumin Human (Albuminar 25%) 25 gm in 100 mls @ 50 mls/hr IV NOW [facility] Stop: 02/14/18 11:46 Last Admin: 02/13/18 10:58 Dose: 50 mls/hr Ipratropium [place] (Atrovent Neb 0.5mg/2.5ml) 0.5 mg HHN Q6HRT AMANDA Stop: 03/31/18 12:59 Last Admin: 02/13/18 07:04 Dose: 0.5 mg Lactobacillus Rhamnosus (Culturelle 15b) 1 each PO DAILY AMANDA Stop: 03/30/18 23:14 Last Admin: 02/12/18 08:54 Dose: 1 each Lactobacillus Rhamnosus (Culturelle 15b) 1 each PO DAILY [facility] Stop: 04/15/18 08:59 Megestrol Acetate (Megace) 400 mg PO DAILY [facility] PRN Reason: Protocol Stop: 03/31/18 08:59 Last Admin: 02/13/18 09:12 Dose: Not Given Metoprolol Tartrate (Lopressor) 50 mg PO BID [facility] Stop: 03/30/18 23:14 Last Admin: 02/13/18 09:12 Dose: Not Given Midodrine (Proamatine) 5 mg PO TID PRN PRN Reason: HYPOTENSION Stop: 03/30/18 23:07 Miscellaneous (Probiotic Screen) 1 ea MC PRN PRN PRN Reason: PROTOCOL Stop: 04/03/18 13:08 Miscellaneous (Clinical Monitoring) 1 ea MC DAILY PRN PRN Reason: RENAL Stop: 04/08/18 08:30 Miscellaneous (Probiotic Screen) 1 ea MC PRN PRN PRN Reason: PROTOCOL Stop: 04/14/18 09:44 Morphine Sulfate (Morphine) 1 mg IVP Q4HR PRN PRN Reason: Pain (Severe) Stop: 03/30/18 23:17 Last Admin: 02/10/18 21:11 Dose: 1 mg Sevelamer Carbonate (Renvela) 800 mg PO TID [facility] Stop: 03/30/18 23:14 Last Admin: 02/13/18 09:13 Dose: Not Given Vitamin B Complex/Vit C/Folic Acid (Vitamin B Complex W/Vitamin C) 1 tab PO DAILY [facility] Stop: 03/31/18 08:59 Last Admin: 02/12/18 08:53 Dose: 1 tab General: Alert, Oriented x3, Cooperative, No acute distress HEENT: Atraumatic, PERRLA, EOMI, Mucous membr. moist/pink Neck: Supple, +2 carotid pulse wo bruit Cardiovascular: Regular rate, Normal S1, Normal S2 Lungs: Other (increased BS right lung field, (+) chest tube) Abdomen: Bowel sounds, Soft Extremities: no Edema Neurological: Sensation intact Skin: no Rash Psych/Mental Status: Mood NL - Procedures Procedures: Procedures Procedure Code Date DRAINAGE OF R PLEURAL CAV WITH DRAIN DEV, PERC APPROACH [id number] 01/29/18 Assessment/Plan - Problem List Patient Problems: All Active Problems RIGHT FACIAL SWELLING AND PAIN (Acute) - Assessment Assessment: ESRD on HD Right facial cellulitis Right lung opacification 2/2 effusion S/P Chest tube Cx UTI T2DM Anemia of CD - Plan Plan: Lab - Result Diagrams 01/31/18 04:15 01/31/18 04:15 Current Medications Acetaminophen (Tylenol) 650 mg PO Q6HR PRN PRN Reason: PAIN Stop: 03/30/18 23:07 Acetaminophen/Hydrocodone Bitart ([place] 5mg/325mg) 2 tab PO Q4H PRN PRN Reason: Pain (Moderate) Stop: 03/30/18 23:16 Last Admin: 01/29/18 23:29 Dose: 2 tab Acetylcysteine (Mucomyst 20%) 2 ml HHN Q4HRT AMANDA Stop: 03/31/18 14:59 Last Admin: 01/31/18 11:27 Dose: 2 ml Albuterol Sulfate (Albuterol 2.5mg/3ml Neb Ud) 2.5 mg HHN Q1H PRN PRN Reason: Respiratory Distress Stop: 03/31/18 07:59 Albuterol/Ipratropium (Duoneb Neb) 3 ml HHN Q4HRT [facility] Stop: 03/31/18 14:59 Last Admin: 01/31/18 11:27 Dose: 3 ml Atorvastatin Calcium (Lipitor) 40 mg PO HS [facility] Stop: 03/31/18 20:59 Last Admin: 01/30/18 21:19 Dose: 40 mg Cinacalcet (Sensipar) 30 mg PO DAILY [facility] Stop: 03/31/18 08:59 Last Admin: 01/31/18 08:28 Dose: Not Given Diclofenac Sodium (Voltaren) 50 mg PO BID [facility] Stop: 04/01/18 08:59 Last Admin: 01/31/18 08:25 Dose: 50 mg Docusate Sodium (Colace) 100 mg PO DAILY [facility] Stop: 03/31/18 08:59 Last Admin: 01/31/18 08:26 Dose: 100 mg Epoetin Vishal (Epogen) 10,000 units SUBQ MWF@1600 [facility] Stop: 04/01/18 15:59 Furosemide (Lasix) 40 mg PO DAILY [facility] Stop: 03/31/18 08:59 Last Admin: 01/31/18 08:26 Dose: 40 mg Heparin Sodium (Porcine) (Heparin) 5,000 units IVP ONCE@2100 [facility] Stop: 01/31/18 21:01 Last Admin: 01/30/18 21:18 Dose: 5,000 units Ceftriaxone Sodium 1 gm/ (Sodium Chloride) 50 mls @ 100 mls/hr IV Q24HR [facility] Stop: 03/31/18 18:59 Last Infusion: 01/30/18 21:50 Dose: Infused Ipratropium [place] (Atrovent Neb 0.5mg/2.5ml) 0.5 mg HHN Q6HRT [facility] Stop: 03/31/18 12:59 Last Admin: 01/31/18 00:57 Dose: Not Given Lactobacillus Rhamnosus (Culturelle 15b) 1 each PO DAILY [facility] Stop: 03/30/18 23:14 Last Admin: 01/31/18 08:27 Dose: 1 each Megestrol Acetate (Megace) 400 mg PO DAILY [facility]ANDA PRN Reason: Protocol Stop: 03/31/18 08:59 Last Admin: 01/31/18 09:31 Dose: Not Given Metoprolol Tartrate (Lopressor) 50 mg PO BID [facility] Stop: 03/30/18 23:14 Last Admin: 01/31/18 08:27 Dose: 50 mg Midodrine (Proamatine) 5 mg PO TID PRN PRN Reason: HYPOTENSION Stop: 03/30/18 23:07 Miscellaneous (Vancomycin Iv Per Pharmacy) 1 ea MC PRN [facility] Stop: 03/30/18 21:44 Morphine Sulfate (Morphine) 1 mg IVP Q4HR PRN PRN Reason: Pain (Severe) Stop: 03/30/18 23:17 Last Admin: 01/31/18 08:17 Dose: 1 mg Sevelamer Carbonate (Renvela) 800 mg PO TID [facility] Stop: 03/30/18 23:14 Last Admin: 01/31/18 08:28 Dose: 800 mg Vitamin B Complex/Vit C/Folic Acid (Vitamin B Complex W/Vitamin C) 1 tab PO DAILY [facility] Stop: 03/31/18 08:59 Last Admin: 01/31/18 08:28 Dose: 1 t Lab - Result Diagrams 02/09/18 04:20 02/10/18 05:40 currently being dialyzed switched to Chest tube, drainage miriam. [address] scan chest revealed large right effusion 2/2 compatible ATx & collapse right lung ? PNA continue Rocephin WBC @ 8.8 Possible bronchoscopy in am Nutritional Asmnt/Malnutr-PDOC - Dietary Evaluation Malnutrition Findings (Please click <Entered> for more info): Nutritional Asmnt/Malnutrition Start: 02/03/18 12: 10 Text: Status: Complete Freq: Document 02/03/18 12:10 [email or web address] (Rec: 02/03/18 12:31 [place]- [email or web address]) Nutritional Asmnt/Malnutrition Patient General Information Nutritional Screening Moderate Risk Diagnosis Rt facuial cellulitis, rt pleural effusion Pertinent Medical Hx/Surgical Hx ESRD on dialysis x 7 years, COPD, hyperlipidemia, Type 2 diabetes Subjective Information Per H&P, patient was on peritoneal dialysis up to a few months ago when he was diagnosed with peritonitis ( now on HD TTS). Per nursing notes, pt refusing some medications. Diet education not appropriate at this time. Current Diet Order/ Nutrition Support 60 gm CCHO, 1200 ml fluid restriction Patient / S.O Not Indicated Pertinent Medications lipitor, Sensipar, colace, lasix, Epogen, Megacem abx, Renvela, Vitamin B complex with C Pertinent Labs ((02/02) Cr 4.5, Ca 8.5, albumin 24 Nutritional Hx/Data Height 1.68 m Height (Calculated Centimeters) 167.6 Current Weight (lbs) 79.379 kg Weight (Calculated Kilograms) 79.4 Weight (Calculated Grams) 49110.7 [place] Body Weight 142 % [place] Body Weight 123 Body Mass Index (BMI) 28.2 Recent Weight Change No Weight Status Overweight GI Symptoms GI Symptoms None Last BM 02/02 x 1 Difficult in: None Food Allergies No Cultural/Ethnic/Taoist Belief none indicated Usual diet at home unknown Skin Integrity/Comment: Ba 15, cellulitis facial Current %PO Good (75-100%) Estimated Nutritional Goals BEE in Kcals: Adj wt of IBW Calories/Kcals/Kg 27-32 kcal/kg using 68.2 kg Adj wt Kcals Calculated 3593-5862 kcal/day Protein: Adj wt of IBW Protein g/k.2-1.5 gm/kg (HD) Protein Calculated 80-100 gm/day Fluid: ml Per MD due to HD Nutritional Problem 1. Problem Problem Increased nutrient needs related to Etiology impaired skin integrity/ dialysis aeb Signs/Symptoms: Facial cellulitis and on HD Intervention/Recommendation Comments Consider modifying diet to 2gm sodium. Glucose/HG1AC low, no need for Diabetic restriction . Continue to monitor K and Phosphorus levels and need for Renal diet (not needed at this time.) Consider Prosource with meals for added protein due to cellulitis and HD. Expected Outcomes/Goals Expected Outcomes/Goals oral intake to meet >75% of nutrient needs, nutritino related labs normalize, weight stable.
[2018-02-13] MEDS: Vitamin B Complex w/Vitamin C Tab PO SCH (11:55)
[2018-02-13] MEDS: Lactobacillus Rhamnosus GG 15 Billion CFU CAP.SPRINK PO SCH (11:57)
--- NOTE | 2018-02-13 12:05 | General Progress Note ---
Subjective - Review of Systems Service Date: 02/13/18 Events since last encounter: CT scan noted, 700 cc drainage, no SOB, still persistent pneumo with no air leak observed on suction bronchoscopy? Objective - Results Result Diagrams: 02/09/18 04:20 02/10/18 05:40 Recent Labs: Laboratory Last Values WBC 8.8 Th/cmm (4.8-10.8) 02/09/18 04:20 RBC 4.06 Mil/cmm (3.80-5.80) 02/09/18 04:20 Hgb 12.2 gm/dL (12-16) 02/09/18 04:20 Hct 36.9 % (41.0-60) L 02/09/18 04:20 MCV 90.9 fl (80-99) 02/09/18 04:20 MCH 30.1 pg (27.0-31.0) 02/09/18 04:20 MCHC Differential 33.0 pg (28.0-36.0) 02/09/18 04:20 RDW 14.9 % (11.5-20.0) 02/09/18 04:20 Plt Count 355 Th/cmm (150-400) 02/09/18 04:20 MPV 6.5 fl 02/09/18 04:20 Neutrophils % 60.3 % (40.0-80.0) 02/09/18 04:20 Lymphocytes % 24.3 % (20.0-50.0) 02/09/18 04:20 Monocytes % 8.0 % (2.0-10.0) 02/09/18 04:20 Eosinophils % 6.0 % (0.0-5.0) H 02/09/18 04:20 Basophils % 1.4 % (0.0-2.0) 02/09/18 04:20 ESR 87 mm/hr (0-20) H 01/31/18 04:15 PT 9.9 SECONDS (9.5-11.5) 01/29/18 16:42 INR 0.95 (0.5-1.4) 01/29/18 16:42 PTT (Actin FS) 29.9 SECONDS (26.0-38.0) 01/29/18 16:42 Sodium 136 mEq/L (136-145) 02/10/18 05:40 Potassium 4.1 mEq/L (3.5-5.1) 02/10/18 05:40 Chloride 101 mEq/L (98-107) 02/10/18 05:40 Carbon Dioxide 29.0 mEq/L (21.0-31.0) 02/10/18 05:40 Anion Gap 10.1 (7.0-16.0) 02/10/18 05:40 BUN 18 mg/dL (7-25) 02/10/18 05:40 Creatinine 5.8 mg/dL (0.7-1.3) H* 02/10/18 05:40 Est GFR ( Amer) 12.7 ml/min (>90) 02/10/18 05:40 Est GFR (Non-Af Amer) 10.5 ml/min 02/10/18 05:40 BUN/Creatinine Ratio 3.1 02/10/18 05:40 Glucose 64 mg/dL (70-105) L 02/10/18 05:40 POC Glucose 106 MG/DL (70 - 105) H 02/08/18 12:11 Hemoglobin A1c % 3.5 % (4.0-6.0) L 01/31/18 04:15 Whole Bld Lactic Acid 0.55 mmol/L (0.60-1.99) L 01/29/18 16:42 Calcium 8.9 mg/dL (8.6-10.3) 02/10/18 05:40 Phosphorus 4.1 mg/dL (2.5-5.0) 01/31/18 04:15 Magnesium 1.8 mg/dL (1.9-2.7) L 02/07/18 05:30 Total Bilirubin 0.3 mg/dL (0.3-1.0) 02/06/18 05:35 AST 12 U/L (13-39) L 02/06/18 05:35 ALT 4 U/L (7-52) L 02/06/18 05:35 Alkaline Phosphatase 53 U/L (34-104) 02/06/18 05:35 Creatine Kinase 12 U/L (30-223) L 01/29/18 16:42 Troponin I 0.02 ng/mL (0.01-0.05) 01/29/18 16:42 C-Reactive Protein 11.4 mg/dL (0.0-0.9) H 01/31/18 04:15 Total Protein 5.9 gm/dL (6.0-8.3) L 02/06/18 05:35 Albumin 2.1 gm/dL (4.2-5.5) L 02/06/18 05:35 Globulin 3.8 gm/dL 02/06/18 05:35 Albumin/Globulin Ratio 0.6 (1.0-1.8) L 02/06/18 05:35 Triglycerides 72 mg/dL (<150) 01/31/18 04:15 Cholesterol 97 mg/dL (<200) 01/31/18 04:15 LDL Cholesterol Direct 45 mg/dL (75-193) L 01/31/18 04:15 HDL Cholesterol 36 mg/dL (23-92) 01/31/18 04:15 TSH 2.15 uIU/ml (0.34-5.60) 01/31/18 04:15 PTH Intact 36 pg/mL (15-65) 02/01/18 05:22 Urine Source MIDSTREAM 01/29/18 22:30 Urine Color YELLOW 01/29/18 22:30 Urine Clarity HAZY (CLEAR) 01/29/18 22:30 Urine pH 8.5 (4.6 - 8.0) 01/29/18 22:30 Ur Specific [place] 1.015 (1.005-1.030) 01/29/18 22:30 Urine Protein 100 mg/dL (NEGATIVE) H 01/29/18 22:30 Urine Glucose (UA) NEGATIVE mg/dL (NEGATIVE) 01/29/18 22:30 Urine Ketones NEGATIVE mg/dL (NEGATIVE) 01/29/18 22:30 Urine Blood MODERATE (NEGATIVE) H 01/29/18 22:30 Urine Nitrate NEGATIVE (NEGATIVE) 01/29/18 22:30 Urine Bilirubin NEGATIVE (NEGATIVE) 01/29/18 22:30 Urine Urobilinogen 0.2 E.U./dL (0.2 - 1.0) 01/29/18 22:30 Ur Leukocyte Esterase LARGE (NEGATIVE) H 01/29/18 22:30 Urine RBC 2-5 /hpf (0-5) H 01/29/18 22:30 Urine WBC >100 /hpf (0-5) H 01/29/18 22:30 Ur Epithelial Cells FEW /lpf (FEW) 01/29/18 22:30 Urine Bacteria MANY /hpf (NONE SEEN) H 01/29/18 22:30 Fluid Source PLEURAL 02/01/18 11:00 Fluid Color PALE YELLOW 02/01/18 11:00 Fluid Appearance HAZY 02/01/18 11:00 Fluid WBC 149 /cumm 02/01/18 11:00 Fluid RBC 185 /cumm 02/01/18 11:00 Fluid Neutrophils 2 % 02/01/18 11:00 Fluid Lymphocytes 50 % 02/01/18 11:00 Fluid Monocytes 48 % 02/01/18 11:00 Fluid Glucose 75.0 mg/dL 02/01/18 11:00 Fluid Total Protein 2.3 g/dL 02/01/18 11:00 Fluid Amylase 61 U/L 02/01/18 11:00 Random Vancomycin 22.5 ug/mL (5.0-40.0) 02/04/18 05:52 - Physical Exam Vitals and I&O: Vital Signs Temp 96.4 F 02/13/18 08:00 Pulse 58 02/13/18 10:52 Resp 18 02/13/18 10:52 BP 104/54 02/13/18 09:12 Pulse Ox 93 02/13/18 10:52 Intake & Output 02/12/18 02/13/18 02/13/18 18:59 06:59 18:59 Intake Total 100 240 Output Total 201 90 Balance -101 150 Weight (lbs) 79.379 kg 78.925 kg Intake: Oral 100 240 Output: Chest Tube Drainage 90 Right Lower Anterior 90 Chest Urine 200 Stool 1 Other: Stool Characteristics Soft Brown Weight Source Bedscale Bedscale Active Medications: Current Medications Acetaminophen (Tylenol) 650 mg PO Q6HR PRN PRN Reason: PAIN Stop: 03/30/18 23:07 Acetaminophen/Hydrocodone Bitart ([place] 5mg/325mg) 2 tab PO Q4H PRN PRN Reason: Pain (Moderate) Stop: 03/30/18 23:16 Last Admin: 02/12/18 20:59 Dose: 2 tab Albuterol Sulfate (Albuterol 2.5mg/3ml Neb Ud) 2.5 mg HHN Q1H PRN PRN Reason: Respiratory Distress Stop: 03/31/18 07:59 Last Admin: 02/01/18 15:33 Dose: 2.5 mg Albuterol/Ipratropium (Duoneb Neb) 3 ml HHN Q4HRT [facility] Stop: 03/31/18 14:59 Last Admin: 02/13/18 10:58 Dose: Not Given Atorvastatin Calcium (Lipitor) 40 mg PO HS AMANDA Stop: 03/31/18 20:59 Last Admin: 02/12/18 20:59 Dose: 40 mg Cinacalcet (Sensipar) 30 mg PO DAILY [facility]AN[facility] Stop: 03/31/18 08:59 Last Admin: 02/13/18 11:57 Dose: Not Given Diclofenac Sodium (Voltaren) 50 mg PO BID [facility]AN[facility] Stop: 04/01/18 08:59 Last Admin: 02/13/18 11:55 Dose: 50 mg Docusate Sodium (Colace) 100 mg PO DAILY [facility]AN[facility] Stop: 03/31/18 08:59 Last Admin: 02/13/18 11:55 Dose: 100 mg Epoetin Vishal (Epogen) 10,000 units SUBQ MWF@1600 [facility] Stop: 04/01/18 15:59 Last Admin: 02/12/18 16:41 Dose: Not Given Ceftriaxone Sodium 1 gm/ (Sodium Chloride) 50 mls @ 100 mls/hr IV Q24HR [facility] Stop: 03/31/18 18:59 Last Admin: 02/12/18 20:58 Dose: 100 mls/hr Albumin Human (Albuminar 25%) 25 gm in 100 mls @ 50 mls/hr IV NOW [facility] Stop: 02/14/18 11:46 Last Admin: 02/13/18 10:58 Dose: 50 mls/hr Ipratropium [place] (Atrovent Neb 0.5mg/2.5ml) 0.5 mg HHN Q6HRT [facility] Stop: 03/31/18 12:59 Last Admin: 02/13/18 07:04 Dose: 0.5 mg Lactobacillus Rhamnosus (Culturelle 15b) 1 each PO DAILY [facility] Stop: 03/30/18 23:14 Last Admin: 02/13/18 11:57 Dose: Not Given Lactobacillus Rhamnosus (Culturelle 15b) 1 each PO DAILY [facility] Stop: 04/15/18 08:59 Megestrol Acetate (Megace) 400 mg PO DAILY [facility] PRN Reason: Protocol Stop: 03/31/18 08:59 Last Admin: 02/13/18 09:12 Dose: Not Given Metoprolol Tartrate (Lopressor) 50 mg PO BID [facility] Stop: 03/30/18 23:14 Last Admin: 02/13/18 09:12 Dose: Not Given Midodrine (Proamatine) 5 mg PO TID PRN PRN Reason: HYPOTENSION Stop: 03/30/18 23:07 Miscellaneous (Probiotic Screen) 1 ea MC PRN PRN PRN Reason: PROTOCOL Stop: 04/03/18 13:08 Miscellaneous (Clinical Monitoring) 1 ea MC DAILY PRN PRN Reason: RENAL Stop: 04/08/18 08:30 Miscellaneous (Probiotic Screen) 1 ea MC PRN PRN PRN Reason: PROTOCOL Stop: 04/14/18 09:44 Morphine Sulfate (Morphine) 1 mg IVP Q4HR PRN PRN Reason: Pain (Severe) Stop: 03/30/18 23:17 Last Admin: 02/10/18 21:11 Dose: 1 mg Sevelamer Carbonate (Renvela) 800 mg PO TID [facility] Stop: 03/30/18 23:14 Last Admin: 02/13/18 09:13 Dose: Not Given Vitamin B Complex/Vit C/Folic Acid (Vitamin B Complex W/Vitamin C) 1 tab PO DAILY [facility] Stop: 03/31/18 08:59 Last Admin: 02/13/18 11:55 Dose: 1 tab General: Alert, Oriented x3, Cooperative, No acute distress HEENT: Atraumatic, PERRLA, EOMI, Mucous membr. moist/pink Neck: Supple, +2 carotid pulse wo bruit Cardiovascular: Regular rate, Normal S1, Normal S2 Lungs: Other (increased BS right lung field, (+) chest tube) Abdomen: Bowel sounds, Soft Extremities: no Edema Neurological: Sensation intact Skin: no Rash Psych/Mental Status: Mood NL - Procedures Procedures: Procedures Procedure Code Date DRAINAGE OF R PLEURAL CAV WITH DRAIN DEV, PERC APPROACH [id number] 01/29/18 Assessment/Plan - Problem List Patient Problems: All Active Problems RIGHT FACIAL SWELLING AND PAIN (Acute) Nutritional Asmnt/Malnutr-PDOC - Dietary Evaluation Malnutrition Findings (Please click <Entered> for more info): Nutritional Asmnt/Malnutrition Start: 02/03/18 12: 10 Text: Status: Complete Freq: Document 02/03/18 12:10 RICO (Rec: 02/03/18 12:31 RICO IMAN- [email or web address]) Nutritional Asmnt/Malnutrition Patient General Information Nutritional Screening Moderate Risk Diagnosis Rt facuial cellulitis, rt pleural effusion Pertinent Medical Hx/Surgical Hx ESRD on dialysis x 7 years, COPD, hyperlipidemia, Type 2 diabetes Subjective Information Per H&P, patient was on peritoneal dialysis up to a few months ago when he was diagnosed with peritonitis ( now on HD TTS). Per nursing notes, pt refusing some medications. Diet education not appropriate at this time. Current Diet Order/ Nutrition Support 60 gm CCHO, 1200 ml fluid restriction Patient / S.O Not Indicated Pertinent Medications lipitor, Sensipar, colace, lasix, Epogen, Megacem abx, Renvela, Vitamin B complex with C Pertinent Labs ((02/02) Cr 4.5, Ca 8.5, albumin 24 Nutritional Hx/Data Height 1.68 m Height (Calculated Centimeters) 167.6 Current Weight (lbs) 79.379 kg Weight (Calculated Kilograms) 79.4 Weight (Calculated Grams) 10019.7 [place] Body Weight 142 % [place] Body Weight 123 Body Mass Index (BMI) 28.2 Recent Weight Change No Weight Status Overweight GI Symptoms GI Symptoms None Last BM 02/02 x 1 Difficult in: None Food Allergies No Cultural/Ethnic/Anabaptist Belief none indicated Usual diet at home unknown Skin Integrity/Comment: Ba 15, cellulitis facial Current %PO Good (75-100%) Estimated Nutritional Goals BEE in Kcals: Adj wt of IBW Calories/Kcals/Kg 27-32 kcal/kg using 68.2 kg Adj wt Kcals Calculated 5462-8736 kcal/day Protein: Adj wt of IBW Protein g/k.2-1.5 gm/kg (HD) Protein Calculated 80-100 gm/day Fluid: ml Per MD due to HD Nutritional Problem 1. Problem Problem Increased nutrient needs related to Etiology impaired skin integrity/ dialysis aeb Signs/Symptoms: Facial cellulitis and on HD Intervention/Recommendation Comments Consider modifying diet to 2gm sodium. Glucose/HG1AC low, no need for Diabetic restriction . Continue to monitor K and Phosphorus levels and need for Renal diet (not needed at this time.) Consider Prosource with meals for added protein due to cellulitis and HD. Expected Outcomes/Goals Expected Outcomes/Goals oral intake to meet >75% of nutrient needs, nutritino related labs normalize, weight stable.
[2018-02-13] MEDS: cefTRIAXone 1 GM in Sodium Chloride 0.9% 50 ML IV SCH (19:12)
[2018-02-14] MEDS: Albuterol/Ipratropium Neb 3 ML AERS HHN SCH ×6 (03:48→23:12)
[2018-02-14 07:42] LABS: % BASOPHILS 1.5 % (0.0-2.0); % EOSINOPHILS 6.8 % (0.0-5.0); % LYMPHOCYTES 19.4 % (20.0-50.0); % MONOCYTES 8.3 % (2.0-10.0); BASOPHILE ABSOLUTE 0.1 Th/cumm (0-0.2); EOSINOPHILE ABSOLUTE 0.6 Th/cmm (0.1-0.4); HEMATOCRIT 36.6 % (41.0-60); HEMOGLOBIN 12.1 gm/dL (12-16); LYMPHOCYTE ABSOLUTE 1.7 Th/cmm (1.5-3.0); MEAN CELL VOLUME 91.5 fl (80-99); MEAN CORPUSCULAR HEMOGLOBIN 30.3 pg (27.0-31.0); MEAN CORPUSCULAR HGB CONC 33.1 pg (28.0-36.0); MEAN PLATELET VOLUME 6.8 fl; MONOCYTE ABSOLUTE 0.7 Th/cmm (0.3-1.0); NEUTROPHILE ABSOLUTE 5.6 Th/cmm (1.8-8.0); PLATELET COUNT 306 Th/cmm (150-400); RED CELL DISTRIBUTION WIDTH 15.3 % (11.5-20.0); WHITE BLOOD COUNT 8.7 Th/cmm (4.8-10.8)
[2018-02-14 07:52] LABS: ALB/GLOB RATIO 0.6 (1.0-1.8); ALBUMIN 2.4 gm/dL (4.2-5.5); ANION GAP 12.6 (7.0-16.0); BILIRUBIN,TOTAL 0.3 mg/dL (0.3-1.0); CARBON DIOXIDE 25.7 mEq/L (21.0-31.0); GFR AFRICAN-AMERICAN 15.1 ml/min (>90); GFR NON AFRICAN-AMERICAN 12.4 ml/min; POTASSIUM SERUM 4.3 mEq/L (3.5-5.1); TOTAL PROTEIN,SERUM 6.2 gm/dL (6.0-8.3)
--- NOTE | 2018-02-14 08:29 | General Progress Note ---
Subjective - Review of Systems Service Date: 02/14/18 Events since last encounter: bronchoscopy today Objective - Results Result Diagrams: 02/14/18 06:10 02/14/18 06:10 Recent Labs: Laboratory Last Values WBC 8.7 Th/cmm (4.8-10.8) 02/14/18 06:10 RBC 4.00 Mil/cmm (3.80-5.80) 02/14/18 06:10 Hgb 12.1 gm/dL (12-16) 02/14/18 06:10 Hct 36.6 % (41.0-60) L 02/14/18 06:10 MCV 91.5 fl (80-99) 02/14/18 06:10 MCH 30.3 pg (27.0-31.0) 02/14/18 06:10 MCHC Differential 33.1 pg (28.0-36.0) 02/14/18 06:10 RDW 15.3 % (11.5-20.0) 02/14/18 06:10 Plt Count 306 Th/cmm (150-400) 02/14/18 06:10 MPV 6.8 fl 02/14/18 06:10 Neutrophils % 64.0 % (40.0-80.0) 02/14/18 06:10 Lymphocytes % 19.4 % (20.0-50.0) L 02/14/18 06:10 Monocytes % 8.3 % (2.0-10.0) 02/14/18 06:10 Eosinophils % 6.8 % (0.0-5.0) H 02/14/18 06:10 Basophils % 1.5 % (0.0-2.0) 02/14/18 06:10 ESR 87 mm/hr (0-20) H 01/31/18 04:15 PT 9.9 SECONDS (9.5-11.5) 01/29/18 16:42 INR 0.95 (0.5-1.4) 01/29/18 16:42 PTT (Actin FS) 29.9 SECONDS (26.0-38.0) 01/29/18 16:42 Sodium 135 mEq/L (136-145) L 02/14/18 06:10 Potassium 4.3 mEq/L (3.5-5.1) 02/14/18 06:10 Chloride 101 mEq/L (98-107) 02/14/18 06:10 Carbon Dioxide 25.7 mEq/L (21.0-31.0) 02/14/18 06:10 Anion Gap 12.6 (7.0-16.0) 02/14/18 06:10 BUN 13 mg/dL (7-25) 02/14/18 06:10 Creatinine 5.0 mg/dL (0.7-1.3) H* 02/14/18 06:10 Est GFR ( Amer) 15.1 ml/min (>90) 02/14/18 06:10 Est GFR (Non-Af Amer) 12.4 ml/min 02/14/18 06:10 BUN/Creatinine Ratio 2.6 02/14/18 06:10 Glucose 56 mg/dL (70-105) L 02/14/18 06:10 POC Glucose 106 MG/DL (70 - 105) H 02/08/18 12:11 Hemoglobin A1c % 3.5 % (4.0-6.0) L 01/31/18 04:15 Whole Bld Lactic Acid 0.55 mmol/L (0.60-1.99) L 01/29/18 16:42 Calcium 9.0 mg/dL (8.6-10.3) 02/14/18 06:10 Phosphorus 4.1 mg/dL (2.5-5.0) 01/31/18 04:15 Magnesium 1.8 mg/dL (1.9-2.7) L 02/07/18 05:30 Total Bilirubin 0.3 mg/dL (0.3-1.0) 02/14/18 06:10 AST 18 U/L (13-39) 02/14/18 06:10 ALT 5 U/L (7-52) L 02/14/18 06:10 Alkaline Phosphatase 61 U/L (34-104) 02/14/18 06:10 Creatine Kinase 12 U/L (30-223) L 01/29/18 16:42 Troponin I 0.02 ng/mL (0.01-0.05) 01/29/18 16:42 C-Reactive Protein 11.4 mg/dL (0.0-0.9) H 01/31/18 04:15 Total Protein 6.2 gm/dL (6.0-8.3) 02/14/18 06:10 Albumin 2.4 gm/dL (4.2-5.5) L 02/14/18 06:10 Globulin 3.8 gm/dL 02/14/18 06:10 Albumin/Globulin Ratio 0.6 (1.0-1.8) L 02/14/18 06:10 Triglycerides 72 mg/dL (<150) 01/31/18 04:15 Cholesterol 97 mg/dL (<200) 01/31/18 04:15 LDL Cholesterol Direct 45 mg/dL (75-193) L 01/31/18 04:15 HDL Cholesterol 36 mg/dL (23-92) 01/31/18 04:15 TSH 2.15 uIU/ml (0.34-5.60) 01/31/18 04:15 PTH Intact 36 pg/mL (15-65) 02/01/18 05:22 Urine Source MIDSTREAM 01/29/18 22:30 Urine Color YELLOW 01/29/18 22:30 Urine Clarity HAZY (CLEAR) 01/29/18 22:30 Urine pH 8.5 (4.6 - 8.0) 01/29/18 22:30 Ur Specific [place] 1.015 (1.005-1.030) 01/29/18 22:30 Urine Protein 100 mg/dL (NEGATIVE) H 01/29/18 22:30 Urine Glucose (UA) NEGATIVE mg/dL (NEGATIVE) 01/29/18 22:30 Urine Ketones NEGATIVE mg/dL (NEGATIVE) 01/29/18 22:30 Urine Blood MODERATE (NEGATIVE) H 01/29/18 22:30 Urine Nitrate NEGATIVE (NEGATIVE) 01/29/18 22:30 Urine Bilirubin NEGATIVE (NEGATIVE) 01/29/18 22:30 Urine Urobilinogen 0.2 E.U./dL (0.2 - 1.0) 01/29/18 22:30 Ur Leukocyte Esterase LARGE (NEGATIVE) H 01/29/18 22:30 Urine RBC 2-5 /hpf (0-5) H 01/29/18 22:30 Urine WBC >100 /hpf (0-5) H 01/29/18 22:30 Ur Epithelial Cells FEW /lpf (FEW) 01/29/18 22:30 Urine Bacteria MANY /hpf (NONE SEEN) H 01/29/18 22:30 Fluid Source PLEURAL 02/01/18 11:00 Fluid Color PALE YELLOW 02/01/18 11:00 Fluid Appearance HAZY 02/01/18 11:00 Fluid WBC 149 /cumm 02/01/18 11:00 Fluid RBC 185 /cumm 02/01/18 11:00 Fluid Neutrophils 2 % 02/01/18 11:00 Fluid Lymphocytes 50 % 02/01/18 11:00 Fluid Monocytes 48 % 02/01/18 11:00 Fluid Glucose 75.0 mg/dL 02/01/18 11:00 Fluid Total Protein 2.3 g/dL 02/01/18 11:00 Fluid Amylase 61 U/L 02/01/18 11:00 Random Vancomycin 22.5 ug/mL (5.0-40.0) 02/04/18 05:52 - Physical Exam Vitals and I&O: Vital Signs Temp 98.2 F 02/14/18 07:57 Pulse 64 02/14/18 07:57 Resp 18 02/14/18 08:05 BP 96/51 02/14/18 07:57 Pulse Ox 100 02/14/18 07:57 Intake & Output 02/13/18 02/14/18 02/14/18 18:59 06:59 18:59 Intake Total 340 Output Total 90 Balance 250 Weight (lbs) 78.925 kg Intake: Intake, IV Amount 100 Albumin 25% 25gm/100mL 25 100 gm In 100 ml @ 50 mls/hr IV NOW [facility] Rx#:[id number] Oral 240 Output: Chest Tube Drainage 90 Right Lower Anterior 90 Chest Other: Stool Characteristics Soft Brown Weight Source Bedscale Active Medications: Current Medications Acetaminophen (Tylenol) 650 mg PO Q6HR PRN PRN Reason: PAIN Stop: 03/30/18 23:07 Acetaminophen/Hydrocodone Bitart ([place] 5mg/325mg) 2 tab PO Q4H PRN PRN Reason: Pain (Moderate) Stop: 03/30/18 23:16 Last Admin: 02/12/18 20:59 Dose: 2 tab Albuterol Sulfate (Albuterol 2.5mg/3ml Neb Ud) 2.5 mg HHN Q1H PRN PRN Reason: Respiratory Distress Stop: 03/31/18 07:59 Last Admin: 05/10/18 15:33 Dose: 2.5 mg Albuterol/Ipratropium (Duoneb Neb) 3 ml HHN Q4HRT [facility] Stop: 03/31/18 14:59 Last Admin: 02/14/18 07:50 Dose: Not Given Atorvastatin Calcium (Lipitor) 40 mg PO HS [facility] Stop: 03/31/18 20:59 Last Admin: 02/13/18 23:10 Dose: 40 mg Cinacalcet (Sensipar) 30 mg PO DAILY [facility] Stop: 03/31/18 08:59 Last Admin: 02/13/18 11:57 Dose: Not Given Diclofenac Sodium (Voltaren) 50 mg PO BID [facility] Stop: 04/01/18 08:59 Last Admin: 02/13/18 19:15 Dose: 50 mg Docusate Sodium (Colace) 100 mg PO DAILY [facility] Stop: 03/31/18 08:59 Last Admin: 02/13/18 11:55 Dose: 100 mg Epoetin Vishal (Epogen) 10,000 units SUBQ MWF@1600 [facility] Stop: 04/01/18 15:59 Last Admin: 02/12/18 16:41 Dose: Not Given Ceftriaxone Sodium 1 gm/ (Sodium Chloride) 50 mls @ 100 mls/hr IV Q24HR [facility] Stop: 03/31/18 18:59 Last Admin: 02/13/18 19:12 Dose: 100 mls/hr Albumin Human (Albuminar 25%) 25 gm in 100 mls @ 50 mls/hr IV NOW [facility] Stop: 02/14/18 11:46 Last Infusion: 02/13/18 13:00 Dose: Infused Ipratropium [place] (Atrovent Neb 0.5mg/2.5ml) 0.5 mg HHN Q6HRT [facility] Stop: 03/31/18 12:59 Last Admin: 02/13/18 13:00 Dose: Not Given Lactobacillus Rhamnosus (Culturelle 15b) 1 each PO DAILY [facility] Stop: 03/30/18 23:14 Last Admin: 02/13/18 11:57 Dose: Not Given Lactobacillus Rhamnosus (Culturelle 15b) 1 each PO DAILY [facility] Stop: 04/15/18 08:59 Megestrol Acetate (Megace) 400 mg PO DAILY [facility] PRN Reason: Protocol Stop: 03/31/18 08:59 Last Admin: 02/13/18 09:12 Dose: Not Given Metoprolol Tartrate (Lopressor) 50 mg PO BID [facility] Stop: 03/30/18 23:14 Last Admin: 02/13/18 19:16 Dose: 50 mg Midodrine (Proamatine) 5 mg PO TID PRN PRN Reason: HYPOTENSION Stop: 03/30/18 23:07 Miscellaneous (Probiotic Screen) 1 ea MC PRN PRN PRN Reason: PROTOCOL Stop: 04/03/18 13:08 Miscellaneous (Clinical Monitoring) 1 ea MC DAILY PRN PRN Reason: RENAL Stop: 04/08/18 08:30 Miscellaneous (Probiotic Screen) 1 ea MC PRN PRN PRN Reason: PROTOCOL Stop: 04/14/18 09:44 Morphine Sulfate (Morphine) 1 mg IVP Q4HR PRN PRN Reason: Pain (Severe) Stop: 03/30/18 23:17 Last Admin: 02/10/18 21:11 Dose: 1 mg Sevelamer Carbonate (Renvela) 800 mg PO TID [facility] Stop: 03/30/18 23:14 Last Admin: 02/13/18 23:10 Dose: 800 mg Vitamin B Complex/Vit C/Folic Acid (Vitamin B Complex W/Vitamin C) 1 tab PO DAILY [facility] Stop: 03/31/18 08:59 Last Admin: 02/13/18 11:55 Dose: 1 tab General: Alert, Oriented x3, Cooperative, No acute distress HEENT: Atraumatic, PERRLA, EOMI, Mucous membr. moist/pink Neck: Supple, +2 carotid pulse wo bruit Cardiovascular: Regular rate, Normal S1, Normal S2 Lungs: Other (increased BS right lung field, (+) chest tube) Abdomen: Bowel sounds, Soft Extremities: no Edema Neurological: Sensation intact Skin: no Rash Psych/Mental Status: Mood NL - Procedures Procedures: Procedures Procedure Code Date DRAINAGE OF R PLEURAL CAV WITH DRAIN DEV, PERC APPROACH [id number] 01/29/18 Assessment/Plan - Problem List Patient Problems: All Active Problems RIGHT FACIAL SWELLING AND PAIN (Acute) Nutritional Asmnt/Malnutr-PDOC - Dietary Evaluation Malnutrition Findings (Please click <Entered> for more info): Nutritional Asmnt/Malnutrition Start: 02/03/18 12: 10 Text: Status: Complete Freq: Document 02/03/18 12:10 [email or web address] (Rec: 02/03/18 12:31 RICO VALERIO- [email or web address]) Nutritional Asmnt/Malnutrition Patient General Information Nutritional Screening Moderate Risk Diagnosis Rt facuial cellulitis, rt pleural effusion Pertinent Medical Hx/Surgical Hx ESRD on dialysis x 7 years, COPD, hyperlipidemia, Type 2 diabetes Subjective Information Per H&P, patient was on peritoneal dialysis up to a few months ago when he was diagnosed with peritonitis ( now on HD TTS). Per nursing notes, pt refusing some medications. Diet education not appropriate at this time. Current Diet Order/ Nutrition Support 60 gm CCHO, 1200 ml fluid restriction Patient / S.O Not Indicated Pertinent Medications lipitor, Sensipar, colace, lasix, Epogen, Megacem abx, Renvela, Vitamin B complex with C Pertinent Labs ((02/02) Cr 4.5, Ca 8.5, albumin 24 Nutritional Hx/Data Height 1.68 m Height (Calculated Centimeters) 167.6 Current Weight (lbs) 79.379 kg Weight (Calculated Kilograms) 79.4 Weight (Calculated Grams) 06416.7 [place] Body Weight 142 % [place] Body Weight 123 Body Mass Index (BMI) 28.2 Recent Weight Change No Weight Status Overweight GI Symptoms GI Symptoms None Last BM 02/02 x 1 Difficult in: None Food Allergies No Cultural/Ethnic/Sabianism Belief none indicated Usual diet at home unknown Skin Integrity/Comment: Ba 15, cellulitis facial Current %PO Good (75-100%) Estimated Nutritional Goals BEE in Kcals: Adj wt of IBW Calories/Kcals/Kg 27-32 kcal/kg using 68.2 kg Adj wt Kcals Calculated 6282-5675 kcal/day Protein: Adj wt of IBW Protein g/k.2-1.5 gm/kg (HD) Protein Calculated 80-100 gm/day Fluid: ml Per MD due to HD Nutritional Problem 1. Problem Problem Increased nutrient needs related to Etiology impaired skin integrity/ dialysis aeb Signs/Symptoms: Facial cellulitis and on HD Intervention/Recommendation Comments Consider modifying diet to 2gm sodium. Glucose/HG1AC low, no need for Diabetic restriction . Continue to monitor K and Phosphorus levels and need for Renal diet (not needed at this time.) Consider Prosource with meals for added protein due to cellulitis and HD. Expected Outcomes/Goals Expected Outcomes/Goals oral intake to meet >75% of nutrient needs, nutritino related labs normalize, weight stable.
--- NOTE | 2018-02-14 08:46 | Diagnostic Imaging Report ---
CHEST X-RAY: AP view INDICATION: Shortness of breath COMPARISON: Chest x-ray 02/10/2019 CT chest on 02/12/2018 FINDINGS: Support devices including 2 right-sided chest tubes are stable. Persistent right hydropneumothorax is seen with volume loss of right lung and right lung infiltrates. IMPRESSION: Persistent right hydropneumothorax with volume loss of the right lung and right lung infiltrates.
[2018-02-14] MEDS: Lactobacillus Rhamnosus GG 15 Billion CFU CAP.SPRINK PO SCH ×2 (09:06)
[2018-02-14] MEDS: Vitamin B Complex w/Vitamin C Tab PO SCH (09:07)
[2018-02-14] MEDS: Albumin 25% 25gm/100mL 25 GM/100 ML BTL IV SCH (10:41)
--- NOTE | 2018-02-14 10:46 | General Progress Note ---
Subjective - Review of Systems Service Date: 02/14/18 Subjective: awake, comfortable Objective - Results Result Diagrams: 02/14/18 06:10 02/14/18 06:10 Recent Labs: Laboratory Last Values WBC 8.7 Th/cmm (4.8-10.8) 02/14/18 06:10 RBC 4.00 Mil/cmm (3.80-5.80) 02/14/18 06:10 Hgb 12.1 gm/dL (12-16) 02/14/18 06:10 Hct 36.6 % (41.0-60) L 02/14/18 06:10 MCV 91.5 fl (80-99) 02/14/18 06:10 MCH 30.3 pg (27.0-31.0) 02/14/18 06:10 MCHC Differential 33.1 pg (28.0-36.0) 02/14/18 06:10 RDW 15.3 % (11.5-20.0) 02/14/18 06:10 Plt Count 306 Th/cmm (150-400) 02/14/18 06:10 MPV 6.8 fl 02/14/18 06:10 Neutrophils % 64.0 % (40.0-80.0) 02/14/18 06:10 Lymphocytes % 19.4 % (20.0-50.0) L 02/14/18 06:10 Monocytes % 8.3 % (2.0-10.0) 02/14/18 06:10 Eosinophils % 6.8 % (0.0-5.0) H 02/14/18 06:10 Basophils % 1.5 % (0.0-2.0) 02/14/18 06:10 ESR 87 mm/hr (0-20) H 01/31/18 04:15 PT 9.9 SECONDS (9.5-11.5) 01/29/18 16:42 INR 0.95 (0.5-1.4) 01/29/18 16:42 PTT (Actin FS) 29.9 SECONDS (26.0-38.0) 01/29/18 16:42 Sodium 135 mEq/L (136-145) L 02/14/18 06:10 Potassium 4.3 mEq/L (3.5-5.1) 02/14/18 06:10 Chloride 101 mEq/L (98-107) 02/14/18 06:10 Carbon Dioxide 25.7 mEq/L (21.0-31.0) 02/14/18 06:10 Anion Gap 12.6 (7.0-16.0) 02/14/18 06:10 BUN 13 mg/dL (7-25) 02/14/18 06:10 Creatinine 5.0 mg/dL (0.7-1.3) H* 02/14/18 06:10 Est GFR ( Amer) 15.1 ml/min (>90) 02/14/18 06:10 Est GFR (Non-Af Amer) 12.4 ml/min 02/14/18 06:10 BUN/Creatinine Ratio 2.6 02/14/18 06:10 Glucose 56 mg/dL (70-105) L 02/14/18 06:10 POC Glucose 106 MG/DL (70 - 105) H 02/08/18 12:11 Hemoglobin A1c % 3.5 % (4.0-6.0) L 01/31/18 04:15 Whole Bld Lactic Acid 0.55 mmol/L (0.60-1.99) L 01/29/18 16:42 Calcium 9.0 mg/dL (8.6-10.3) 02/14/18 06:10 Phosphorus 4.1 mg/dL (2.5-5.0) 01/31/18 04:15 Magnesium 1.8 mg/dL (1.9-2.7) L 02/07/18 05:30 Total Bilirubin 0.3 mg/dL (0.3-1.0) 02/14/18 06:10 AST 18 U/L (13-39) 02/14/18 06:10 ALT 5 U/L (7-52) L 02/14/18 06:10 Alkaline Phosphatase 61 U/L (34-104) 02/14/18 06:10 Creatine Kinase 12 U/L (30-223) L 01/29/18 16:42 Troponin I 0.02 ng/mL (0.01-0.05) 01/29/18 16:42 C-Reactive Protein 11.4 mg/dL (0.0-0.9) H 01/31/18 04:15 Total Protein 6.2 gm/dL (6.0-8.3) 02/14/18 06:10 Albumin 2.4 gm/dL (4.2-5.5) L 02/14/18 06:10 Globulin 3.8 gm/dL 02/14/18 06:10 Albumin/Globulin Ratio 0.6 (1.0-1.8) L 02/14/18 06:10 Triglycerides 72 mg/dL (<150) 01/31/18 04:15 Cholesterol 97 mg/dL (<200) 01/31/18 04:15 LDL Cholesterol Direct 45 mg/dL (75-193) L 01/31/18 04:15 HDL Cholesterol 36 mg/dL (23-92) 01/31/18 04:15 TSH 2.15 uIU/ml (0.34-5.60) 01/31/18 04:15 PTH Intact 36 pg/mL (15-65) 02/01/18 05:22 Urine Source MIDSTREAM 01/29/18 22:30 Urine Color YELLOW 01/29/18 22:30 Urine Clarity HAZY (CLEAR) 01/29/18 22:30 Urine pH 8.5 (4.6 - 8.0) 01/29/18 22:30 Ur Specific [place] 1.015 (1.005-1.030) 01/29/18 22:30 Urine Protein 100 mg/dL (NEGATIVE) H 01/29/18 22:30 Urine Glucose (UA) NEGATIVE mg/dL (NEGATIVE) 01/29/18 22:30 Urine Ketones NEGATIVE mg/dL (NEGATIVE) 01/29/18 22:30 Urine Blood MODERATE (NEGATIVE) H 01/29/18 22:30 Urine Nitrate NEGATIVE (NEGATIVE) 01/29/18 22:30 Urine Bilirubin NEGATIVE (NEGATIVE) 01/29/18 22:30 Urine Urobilinogen 0.2 E.U./dL (0.2 - 1.0) 01/29/18 22:30 Ur Leukocyte Esterase LARGE (NEGATIVE) H 01/29/18 22:30 Urine RBC 2-5 /hpf (0-5) H 01/29/18 22:30 Urine WBC >100 /hpf (0-5) H 01/29/18 22:30 Ur Epithelial Cells FEW /lpf (FEW) 01/29/18 22:30 Urine Bacteria MANY /hpf (NONE SEEN) H 01/29/18 22:30 Fluid Source PLEURAL 02/01/18 11:00 Fluid Color PALE YELLOW 02/01/18 11:00 Fluid Appearance HAZY 02/01/18 11:00 Fluid WBC 149 /cumm 02/01/18 11:00 Fluid RBC 185 /cumm 02/01/18 11:00 Fluid Neutrophils 2 % 02/01/18 11:00 Fluid Lymphocytes 50 % 02/01/18 11:00 Fluid Monocytes 48 % 02/01/18 11:00 Fluid Glucose 75.0 mg/dL 02/01/18 11:00 Fluid Total Protein 2.3 g/dL 02/01/18 11:00 Fluid Amylase 61 U/L 02/01/18 11:00 Random Vancomycin 22.5 ug/mL (5.0-40.0) 02/04/18 05:52 - Physical Exam Vitals and I&O: Vital Signs Temp 98.2 F 02/14/18 07:57 Pulse 64 02/14/18 09:06 Resp 18 02/14/18 08:05 BP 96/51 02/14/18 09:06 Pulse Ox 100 02/14/18 07:57 Intake & Output 02/13/18 02/14/18 02/14/18 18:59 06:59 18:59 Intake Total 340 50 Output Total 90 Balance 250 50 Weight (lbs) 78.925 kg 78.925 kg Intake: Intake, IV Amount 100 50 Albumin 25% 25gm/100mL 25 100 gm In 100 ml @ 50 mls/hr IV NOW [facility] Rx#:[id number] cefTRIAXone 1 gm In 50 Sodium Chloride 0.9% 50 ml @ 100 mls/hr IV Q24HR [facility] Rx#:[id number] Oral 240 Output: Chest Tube Drainage 90 Right Lower Anterior 90 Chest Other: Stool Characteristics Soft Brown Weight Source Bedscale Bedscale Active Medications: Current Medications Acetaminophen (Tylenol) 650 mg PO Q6HR PRN PRN Reason: PAIN Stop: 03/30/18 23:07 Acetaminophen/Hydrocodone Bitart (Imler 5mg/325mg) 2 tab PO Q4H PRN PRN Reason: Pain (Moderate) Stop: 03/30/18 23:16 Last Admin: 02/12/18 20:59 Dose: 2 tab Albuterol Sulfate (Albuterol 2.5mg/3ml Neb Ud) 2.5 mg HHN Q1H PRN PRN Reason: Respiratory Distress Stop: 03/31/18 07:59 Last Admin: 02/01/18 15:33 Dose: 2.5 mg Albuterol/Ipratropium (Duoneb Neb) 3 ml HHN Q4HRT AMANDA Stop: 03/31/18 14:59 Last Admin: 02/14/18 07:50 Dose: Not Given Atorvastatin Calcium (Lipitor) 40 mg PO HS AMANDA Stop: 03/31/18 20:59 Last Admin: 02/13/18 23:10 Dose: 40 mg Cinacalcet (Sensipar) 30 mg PO DAILY AMANDA Stop: 03/31/18 08:59 Last Admin: 02/14/18 09:05 Dose: Not Given Diclofenac Sodium (Voltaren) 50 mg PO BID AMANDA Stop: 04/01/18 08:59 Last Admin: 02/14/18 09:06 Dose: Not Given Docusate Sodium (Colace) 100 mg PO DAILY AMANDA Stop: 03/31/18 08:59 Last Admin: 02/14/18 09:06 Dose: Not Given Epoetin Vishal (Epogen) 10,000 units SUBQ MWF@1600 [facility] Stop: 04/01/18 15:59 Last Admin: 02/12/18 16:41 Dose: Not Given Ceftriaxone Sodium 1 gm/ (Sodium Chloride) 50 mls @ 100 mls/hr IV Q24HR AMANDA Stop: 03/31/18 18:59 Last Infusion: 02/13/18 19:42 Dose: Infused Albumin Human (Albuminar 25%) 25 gm in 100 mls @ 50 mls/hr IV NOW AMANDA Stop: 02/14/18 11:46 Last Admin: 02/14/18 10:41 Dose: Not Given Ipratropium Bieber (Atrovent Neb 0.5mg/2.5ml) 0.5 mg HHN Q6HRT AMANDA Stop: 03/31/18 12:59 Last Admin: 02/13/18 13:00 Dose: Not Given Lactobacillus Rhamnosus (Culturelle 15b) 1 each PO DAILY [facility] Stop: 03/30/18 23:14 Last Admin: 02/14/18 09:06 Dose: Not Given Lactobacillus Rhamnosus (Culturelle 15b) 1 each PO DAILY [facility] Stop: 04/15/18 08:59 Last Admin: 02/14/18 09:06 Dose: Not Given Megestrol Acetate (Megace) 400 mg PO DAILY AMANDA PRN Reason: Protocol Stop: 03/31/18 08:59 Last Admin: 02/14/18 09:06 Dose: Not Given Metoprolol Tartrate (Lopressor) 50 mg PO BID AMANDA Stop: 03/30/18 23:14 Last Admin: 02/14/18 09:06 Dose: Not Given Midodrine (Proamatine) 5 mg PO TID PRN PRN Reason: HYPOTENSION Stop: 03/30/18 23:07 Miscellaneous (Probiotic Screen) 1 ea MC PRN PRN PRN Reason: PROTOCOL Stop: 04/03/18 13:08 Miscellaneous (Clinical Monitoring) 1 ea MC DAILY PRN PRN Reason: RENAL Stop: 04/08/18 08:30 Miscellaneous (Probiotic Screen) 1 ea MC PRN PRN PRN Reason: PROTOCOL Stop: 04/14/18 09:44 Morphine Sulfate (Morphine) 1 mg IVP Q4HR PRN PRN Reason: Pain (Severe) Stop: 03/30/18 23:17 Last Admin: 02/10/18 21:11 Dose: 1 mg Sevelamer Carbonate (Renvela) 800 mg PO TID AMANDA Stop: 03/30/18 23:14 Last Admin: 02/14/18 09:07 Dose: Not Given Vitamin B Complex/Vit C/Folic Acid (Vitamin B Complex W/Vitamin C) 1 tab PO DAILY AMANDA Stop: 03/31/18 08:59 Last Admin: 02/14/18 09:07 Dose: Not Given General: Alert, Oriented x3, Cooperative, No acute distress HEENT: Atraumatic, PERRLA, EOMI, Mucous membr. moist/pink Neck: Supple, +2 carotid pulse wo bruit Cardiovascular: Regular rate, Normal S1, Normal S2 Lungs: Other (increased BS right lung field, (+) chest tube) Abdomen: Bowel sounds, Soft Extremities: no Edema Neurological: Sensation intact Skin: no Rash Psych/Mental Status: Mood NL - Procedures Procedures: Procedures Procedure Code Date DRAINAGE OF R PLEURAL CAV WITH DRAIN DEV, PERC APPROACH [id number] 01/29/18 Assessment/Plan - Problem List Patient Problems: All Active Problems RIGHT FACIAL SWELLING AND PAIN (Acute) - Assessment Assessment: ESRD on HD Right facial cellulitis Right lung opacification 2/2 effusion Cx UTI T2DM Anemia of CKD right PTX s/p chest tube - Plan Plan: Lab - Result Diagrams 01/31/18 04:15 01/31/18 04:15 Current Medications Acetaminophen (Tylenol) 650 mg PO Q6HR PRN PRN Reason: PAIN Stop: 03/30/18 23:07 Acetaminophen/Hydrocodone Bitart (Imler 5mg/325mg) 2 tab PO Q4H PRN PRN Reason: Pain (Moderate) Stop: 03/30/18 23:16 Last Admin: 01/29/18 23:29 Dose: 2 tab Acetylcysteine (Mucomyst 20%) 2 ml HHN Q4HRT AMANDA Stop: 03/31/18 14:59 Last Admin: 01/31/18 11:27 Dose: 2 ml Albuterol Sulfate (Albuterol 2.5mg/3ml Neb Ud) 2.5 mg HHN Q1H PRN PRN Reason: Respiratory Distress Stop: 03/31/18 07:59 Albuterol/Ipratropium (Duoneb Neb) 3 ml HHN Q4HRT AMANDA Stop: 03/31/18 14:59 Last Admin: 01/31/18 11:27 Dose: 3 ml Atorvastatin Calcium (Lipitor) 40 mg PO HS [facility] Stop: 03/31/18 20:59 Last Admin: 01/30/18 21:19 Dose: 40 mg Cinacalcet (Sensipar) 30 mg PO DAILY AMANDA Stop: 03/31/18 08:59 Last Admin: 01/31/18 08:28 Dose: Not Given Diclofenac Sodium (Voltaren) 50 mg PO BID AMANDA Stop: 04/01/18 08:59 Last Admin: 01/31/18 08:25 Dose: 50 mg Docusate Sodium (Colace) 100 mg PO DAILY AMANDA Stop: 03/31/18 08:59 Last Admin: 01/31/18 08:26 Dose: 100 mg Epoetin Vishal (Epogen) 10,000 units SUBQ MWF@1600 [facility] Stop: 04/01/18 15:59 Furosemide (Lasix) 40 mg PO DAILY [facility]ANDA Stop: 03/31/18 08:59 Last Admin: 01/31/18 08:26 Dose: 40 mg Heparin Sodium (Porcine) (Heparin) 5,000 units IVP ONCE@2100 [facility] Stop: 01/31/18 21:01 Last Admin: 01/30/18 21:18 Dose: 5,000 units Ceftriaxone Sodium 1 gm/ (Sodium Chloride) 50 mls @ 100 mls/hr IV Q24HR [facility]ANDA Stop: 03/31/18 18:59 Last Infusion: 01/30/18 21:50 Dose: Infused Ipratropium Bieber (Atrovent Neb 0.5mg/2.5ml) 0.5 mg HHN Q6HRT AMANDA Stop: 03/31/18 12:59 Last Admin: 01/31/18 00:57 Dose: Not Given Lactobacillus Rhamnosus (Culturelle 15b) 1 each PO DAILY [facility] Stop: 03/30/18 23:14 Last Admin: 01/31/18 08:27 Dose: 1 each Megestrol Acetate (Megace) 400 mg PO DAILY AMANDA PRN Reason: Protocol Stop: 03/31/18 08:59 Last Admin: 01/31/18 09:31 Dose: Not Given Metoprolol Tartrate (Lopressor) 50 mg PO BID [facility] Stop: 03/30/18 23:14 Last Admin: 01/31/18 08:27 Dose: 50 mg Midodrine (Proamatine) 5 mg PO TID PRN PRN Reason: HYPOTENSION Stop: 03/30/18 23:07 Miscellaneous (Vancomycin Iv Per Pharmacy) 1 ea MC PRN [facility] Stop: 03/30/18 21:44 Morphine Sulfate (Morphine) 1 mg IVP Q4HR PRN PRN Reason: Pain (Severe) Stop: 03/30/18 23:17 Last Admin: 01/31/18 08:17 Dose: 1 mg Sevelamer Carbonate (Renvela) 800 mg PO TID [facility] Stop: 03/30/18 23:14 Last Admin: 01/31/18 08:28 Dose: 800 mg Vitamin B Complex/Vit C/Folic Acid (Vitamin B Complex W/Vitamin C) 1 tab PO DAILY [facility] Stop: 03/31/18 08:59 Last Admin: 01/31/18 08:28 Dose: 1 t Lab - Result Diagrams 02/14/18 06:10 02/14/18 06:10 scheduled for HD in am switched to Chest tube, drainage miriam. [address] scan chest revealed large right effusion 2/2 compatible ATx & collapse right lung ? PNA continue Rocephin WBC @ 8.9 Possible bronchoscopy today Nutritional Asmnt/Malnutr-PDOC - Dietary Evaluation Malnutrition Findings (Please click <Entered> for more info): Nutritional Asmnt/Malnutrition Start: 02/03/18 12: 10 Text: Status: Complete Freq: Document 02/03/18 12:10 RICO (Rec: 02/03/18 12:31 [email or web address] [email or web address]- [email or web address]) Nutritional Asmnt/Malnutrition Patient General Information Nutritional Screening Moderate Risk Diagnosis Rt facuial cellulitis, rt pleural effusion Pertinent Medical Hx/Surgical Hx ESRD on dialysis x 7 years, COPD, hyperlipidemia, Type 2 diabetes Subjective Information Per H&P, patient was on peritoneal dialysis up to a few months ago when he was diagnosed with peritonitis ( now on HD TTS). Per nursing notes, pt refusing some medications. Diet education not appropriate at this time. Current Diet Order/ Nutrition Support 60 gm CCHO, 1200 ml fluid restriction Patient / S.O Not Indicated Pertinent Medications lipitor, Sensipar, colace, lasix, Epogen, Megacem abx, Renvela, Vitamin B complex with C Pertinent Labs ((02/02) Cr 4.5, Ca 8.5, albumin 24 Nutritional Hx/Data Height 1.68 m Height (Calculated Centimeters) 167.6 Current Weight (lbs) 79.379 kg Weight (Calculated Kilograms) 79.4 Weight (Calculated Grams) 29865.7 [place] Body Weight 142 % [place] Body Weight 123 Body Mass Index (BMI) 28.2 Recent Weight Change No Weight Status Overweight GI Symptoms GI Symptoms None Last BM 02/02 x 1 Difficult in: None Food Allergies No Cultural/Ethnic/Catholic Belief none indicated Usual diet at home unknown Skin Integrity/Comment: Ba 15, cellulitis facial Current %PO Good (75-100%) Estimated Nutritional Goals BEE in Kcals: Adj wt of IBW Calories/Kcals/Kg 27-32 kcal/kg using 68.2 kg Adj wt Kcals Calculated 0220-1987 kcal/day Protein: Adj wt of IBW Protein g/k.2-1.5 gm/kg (HD) Protein Calculated 80-100 gm/day Fluid: ml Per MD due to HD Nutritional Problem 1. Problem Problem Increased nutrient needs related to Etiology impaired skin integrity/ dialysis aeb Signs/Symptoms: Facial cellulitis and on HD Intervention/Recommendation Comments Consider modifying diet to 2gm sodium. Glucose/HG1AC low, no need for Diabetic restriction . Continue to monitor K and Phosphorus levels and need for Renal diet (not needed at this time.) Consider Prosource with meals for added protein due to cellulitis and HD. Expected Outcomes/Goals Expected Outcomes/Goals oral intake to meet >75% of nutrient needs, nutritino related labs normalize, weight stable.
[2018-02-14] MEDS ORDERED: Cetacaine 56 mL Bottle TP ONE (11:18)
[2018-02-14] MEDS ORDERED: Midazolam 1mg/ml 2 ml vial IV ONE (11:18)
[2018-02-14] MEDS ORDERED: Lidocaine 2% Gel 5 mL TP ONE ×4 (14:39→15:19)
[2018-02-14] MEDS ORDERED: EPINEPHRINE INJ ONE (15:19)
[2018-02-14] MEDS ORDERED: LIDOCAINE INJ ONE (15:19)
--- NOTE | 2018-02-14 16:51 | Operative Report ---
DATE OF SURGERY: 02/14/2018 PROCEDURE NAME: Flexible bronchoscopy. PREOPERATIVE DIAGNOSIS: Rule out endobronchial lesion, right-sided lung atelectasis. POSTOPERATIVE DIAGNOSIS: No evidence of endobronchial lesions, copious amount of bloody secretions from the right side. DESCRIPTION OF PROCEDURE: The procedure was done in endoscopy suite with total sedation was accomplished and 4 mg of Versed given in increments. Local anesthesia was accomplished with Hurricaine [place] to the throat area and lidocaine jelly to the right nostril area. Insertion of the small channel bronchoscope was tried in the right nostril. The patient was resistant to have it done, would not let me do it. We went through the oral route. Inspection of the upper airways shows no abnormalities. Vocal cords were moving normally. They were passed after installation of some lidocaine spray. The laceration some lidocaine through the bronchoscope. The inspection of the trachea shows: 1. Inspection of the jessica shows no abnormalities. There is some kind of what appears to be bloody fluids gushing from the right side were suctioned, aspirated, inspection of the right side. After cleaning all the fluids and liquids and bloody secretions showed no endobronchial lesions, no other abnormalities or the segments are open and clear. Inspection of the left side shows no abnormalities either. The bronchial lavage was done in the right lower lobe area and sent for cultures and cytology. The patient tolerated the procedure well and maintained stable vitals throughout the procedure. FINDINGS: 1. No endobronchial lesion. 2. Secretions was evident from the right side of the lung suctioned and cleared and sent for cytology and cultures. JOB# [id number] [email or web address]
[2018-02-14] MEDS: Hydrocodone/APAP 5mg/325mg Tab PO PRN (17:13)
[2018-02-14] MEDS: cefTRIAXone 1 GM in Sodium Chloride 0.9% 50 ML IV SCH (18:55)
[2018-02-15] MEDS ORDERED: Albumin 25% 25gm/100mL 25 GM/100 ML BTL IV ONE ×4 (00:20→10:03)
[2018-02-15] MEDS: Albuterol/Ipratropium Neb 3 ML AERS HHN SCH ×6 (03:10→23:42)
[2018-02-15] MEDS: Ipratropium Neb 0.5 mg/2.5 mL UD HHN SCH ×2 (07:15→12:35)
--- NOTE | 2018-02-15 09:02 | General Progress Note ---
Subjective - Review of Systems Service Date: 02/15/18 Events since last encounter: discussed bronchoscopy findings with Dr. Tapia await cytology report Objective - Results Result Diagrams: 02/14/18 06:10 02/14/18 06:10 Recent Labs: Laboratory Last Values WBC 8.7 Th/cmm (4.8-10.8) 02/14/18 06:10 RBC 4.00 Mil/cmm (3.80-5.80) 02/14/18 06:10 Hgb 12.1 gm/dL (12-16) 02/14/18 06:10 Hct 36.6 % (41.0-60) L 02/14/18 06:10 MCV 91.5 fl (80-99) 02/14/18 06:10 MCH 30.3 pg (27.0-31.0) 02/14/18 06:10 MCHC Differential 33.1 pg (28.0-36.0) 02/14/18 06:10 RDW 15.3 % (11.5-20.0) 02/14/18 06:10 Plt Count 306 Th/cmm (150-400) 02/14/18 06:10 MPV 6.8 fl 02/14/18 06:10 Neutrophils % 64.0 % (40.0-80.0) 02/14/18 06:10 Lymphocytes % 19.4 % (20.0-50.0) L 02/14/18 06:10 Monocytes % 8.3 % (2.0-10.0) 02/14/18 06:10 Eosinophils % 6.8 % (0.0-5.0) H 02/14/18 06:10 Basophils % 1.5 % (0.0-2.0) 02/14/18 06:10 ESR 87 mm/hr (0-20) H 01/31/18 04:15 PT 9.9 SECONDS (9.5-11.5) 01/29/18 16:42 INR 0.95 (0.5-1.4) 01/29/18 16:42 PTT (Actin FS) 29.9 SECONDS (26.0-38.0) 01/29/18 16:42 Sodium 135 mEq/L (136-145) L 02/14/18 06:10 Potassium 4.3 mEq/L (3.5-5.1) 02/14/18 06:10 Chloride 101 mEq/L (98-107) 02/14/18 06:10 Carbon Dioxide 25.7 mEq/L (21.0-31.0) 02/14/18 06:10 Anion Gap 12.6 (7.0-16.0) 02/14/18 06:10 BUN 13 mg/dL (7-25) 02/14/18 06:10 Creatinine 5.0 mg/dL (0.7-1.3) H* 02/14/18 06:10 Est GFR ( Amer) 15.1 ml/min (>90) 02/14/18 06:10 Est GFR (Non-Af Amer) 12.4 ml/min 02/14/18 06:10 BUN/Creatinine Ratio 2.6 02/14/18 06:10 Glucose 56 mg/dL (70-105) L 02/14/18 06:10 POC Glucose 106 MG/DL (70 - 105) H 02/08/18 12:11 Hemoglobin A1c % 3.5 % (4.0-6.0) L 01/31/18 04:15 Whole Bld Lactic Acid 0.55 mmol/L (0.60-1.99) L 01/29/18 16:42 Calcium 9.0 mg/dL (8.6-10.3) 02/14/18 06:10 Phosphorus 4.1 mg/dL (2.5-5.0) 01/31/18 04:15 Magnesium 1.8 mg/dL (1.9-2.7) L 02/07/18 05:30 Total Bilirubin 0.3 mg/dL (0.3-1.0) 02/14/18 06:10 AST 18 U/L (13-39) 02/14/18 06:10 ALT 5 U/L (7-52) L 02/14/18 06:10 Alkaline Phosphatase 61 U/L (34-104) 02/14/18 06:10 Creatine Kinase 12 U/L (30-223) L 01/29/18 16:42 Troponin I 0.02 ng/mL (0.01-0.05) 01/29/18 16:42 C-Reactive Protein 11.4 mg/dL (0.0-0.9) H 01/31/18 04:15 Total Protein 6.2 gm/dL (6.0-8.3) 02/14/18 06:10 Albumin 2.4 gm/dL (4.2-5.5) L 02/14/18 06:10 Globulin 3.8 gm/dL 02/14/18 06:10 Albumin/Globulin Ratio 0.6 (1.0-1.8) L 02/14/18 06:10 Triglycerides 72 mg/dL (<150) 01/31/18 04:15 Cholesterol 97 mg/dL (<200) 01/31/18 04:15 LDL Cholesterol Direct 45 mg/dL (75-193) L 01/31/18 04:15 HDL Cholesterol 36 mg/dL (23-92) 01/31/18 04:15 TSH 2.15 uIU/ml (0.34-5.60) 01/31/18 04:15 PTH Intact 36 pg/mL (15-65) 02/01/18 05:22 Urine Source MIDSTREAM 01/29/18 22:30 Urine Color YELLOW 01/29/18 22:30 Urine Clarity HAZY (CLEAR) 01/29/18 22:30 Urine pH 8.5 (4.6 - 8.0) 01/29/18 22:30 Ur Specific [place] 1.015 (1.005-1.030) 01/29/18 22:30 Urine Protein 100 mg/dL (NEGATIVE) H 01/29/18 22:30 Urine Glucose (UA) NEGATIVE mg/dL (NEGATIVE) 01/29/18 22:30 Urine Ketones NEGATIVE mg/dL (NEGATIVE) 01/29/18 22:30 Urine Blood MODERATE (NEGATIVE) H 01/29/18 22:30 Urine Nitrate NEGATIVE (NEGATIVE) 01/29/18 22:30 Urine Bilirubin NEGATIVE (NEGATIVE) 01/29/18 22:30 Urine Urobilinogen 0.2 E.U./dL (0.2 - 1.0) 01/29/18 22:30 Ur Leukocyte Esterase LARGE (NEGATIVE) H 01/29/18 22:30 Urine RBC 2-5 /hpf (0-5) H 01/29/18 22:30 Urine WBC >100 /hpf (0-5) H 01/29/18 22:30 Ur Epithelial Cells FEW /lpf (FEW) 01/29/18 22:30 Urine Bacteria MANY /hpf (NONE SEEN) H 01/29/18 22:30 Fluid Source PLEURAL 02/01/18 11:00 Fluid Color PALE YELLOW 02/01/18 11:00 Fluid Appearance HAZY 02/01/18 11:00 Fluid WBC 149 /cumm 02/01/18 11:00 Fluid RBC 185 /cumm 02/01/18 11:00 Fluid Neutrophils 2 % 02/01/18 11:00 Fluid Lymphocytes 50 % 02/01/18 11:00 Fluid Monocytes 48 % 02/01/18 11:00 Fluid Glucose 75.0 mg/dL 02/01/18 11:00 Fluid Total Protein 2.3 g/dL 02/01/18 11:00 Fluid Amylase 61 U/L 02/01/18 11:00 Random Vancomycin 22.5 ug/mL (5.0-40.0) 02/04/18 05:52 - Physical Exam Vitals and I&O: Vital Signs Temp 97 F 02/15/18 04:00 Pulse 77 02/15/18 07:16 Resp 18 02/15/18 07:16 BP 120/56 02/15/18 06:00 Pulse Ox 97 02/15/18 07:16 Intake & Output 02/14/18 02/15/18 02/15/18 18:59 06:59 18:59 Intake Total 350 Output Total 450 Balance -100 Weight (lbs) 67.676 kg Intake: Oral 350 Output: Chest Tube Drainage 350 Right Lower Anterior 350 Chest Urine 100 Other: # Voids 0 # Bowel Movements 0 Stool Characteristics Formed Formed Brown Brown Weight Source Bedscale Active Medications: Current Medications Acetaminophen (Tylenol) 650 mg PO Q6HR PRN PRN Reason: PAIN Stop: 03/30/18 23:07 Acetaminophen/Hydrocodone Bitart ([place] 5mg/325mg) 2 tab PO Q4H PRN PRN Reason: Pain (Moderate) Stop: 03/30/18 23:16 Last Admin: 02/14/18 17:13 Dose: 2 tab Albuterol Sulfate (Albuterol 2.5mg/3ml Neb Ud) 2.5 mg HHN Q1H PRN PRN Reason: Respiratory Distress Stop: 03/31/18 07:59 Last Admin: 02/01/18 15:33 Dose: 2.5 mg Albuterol/Ipratropium (Duoneb Neb) 3 ml HHN Q4HRT [facility] Stop: 03/31/18 14:59 Last Admin: 02/15/18 07:15 Dose: 3 ml Atorvastatin Calcium (Lipitor) 40 mg PO HS AMANDA Stop: 03/31/18 20:59 Last Admin: 02/14/18 20:32 Dose: 40 mg Cinacalcet (Sensipar) 30 mg PO DAILY AMANDA Stop: 03/31/18 08:59 Last Admin: 02/14/18 09:05 Dose: Not Given Diclofenac Sodium (Voltaren) 50 mg PO BID AMANDA Stop: 04/01/18 08:59 Last Admin: 02/14/18 17:06 Dose: 50 mg Docusate Sodium (Colace) 100 mg PO DAILY [facility] Stop: 03/31/18 08:59 Last Admin: 02/14/18 09:06 Dose: Not Given Ceftriaxone Sodium 1 gm/ (Sodium Chloride) 50 mls @ 100 mls/hr IV Q24HR AMANDA Stop: 03/31/18 18:59 Last Admin: 02/14/18 18:55 Dose: 100 mls/hr Ipratropium [place] (Atrovent Neb 0.5mg/2.5ml) 0.5 mg HHN Q6HRT [facility] Stop: 03/31/18 12:59 Last Admin: 02/15/18 07:15 Dose: Not Given Lactobacillus Rhamnosus (Culturelle 15b) 1 each PO DAILY [facility] Stop: 03/30/18 23:14 Last Admin: 02/14/18 09:06 Dose: Not Given Lactobacillus Rhamnosus (Culturelle 15b) 1 each PO DAILY [facility] Stop: 04/15/18 08:59 Last Admin: 02/14/18 09:06 Dose: Not Given Megestrol Acetate (Megace) 400 mg PO DAILY [facility] PRN Reason: Protocol Stop: 03/31/18 08:59 Last Admin: 02/14/18 09:06 Dose: Not Given Midodrine (Proamatine) 10 mg PO TID [facility] Stop: 04/16/18 00:29 Last Admin: 02/15/18 01:27 Dose: 10 mg Miscellaneous (Probiotic Screen) 1 ea PRN PRN PRN Reason: PROTOCOL Stop: 04/03/18 13:08 Miscellaneous (Clinical Monitoring) 1 ea MC DAILY PRN PRN Reason: RENAL Stop: 04/08/18 08:30 Miscellaneous (Probiotic Screen) 1 ea MC PRN PRN PRN Reason: PROTOCOL Stop: 04/14/18 09:44 Morphine Sulfate (Morphine) 1 mg IVP Q4HR PRN PRN Reason: Pain (Severe) Stop: 03/30/18 23:17 Last Admin: 02/10/18 21:11 Dose: 1 mg Sevelamer Carbonate (Renvela) 800 mg PO TID AMANDA Stop: 03/30/18 23:14 Last Admin: 02/14/18 20:44 Dose: Not Given Vitamin B Complex/Vit C/Folic Acid (Vitamin B Complex W/Vitamin C) 1 tab PO DAILY AMANDA Stop: 03/31/18 08:59 Last Admin: 02/14/18 09:07 Dose: Not Given General: Alert, Oriented x3, Cooperative, No acute distress HEENT: Atraumatic, PERRLA, EOMI, Mucous membr. moist/pink Neck: Supple, +2 carotid pulse wo bruit Cardiovascular: Regular rate, Normal S1, Normal S2 Lungs: Other (increased BS right lung field, (+) chest tube) Abdomen: Bowel sounds, Soft Extremities: no Edema Neurological: Sensation intact Skin: no Rash Psych/Mental Status: Mood NL - Procedures Procedures: Procedures Procedure Code Date DRAINAGE OF R PLEURAL CAV WITH DRAIN DEV, PERC APPROACH [id number] 01/29/18 DRAINAGE OF RIGHT LOWER LUNG LOBE, ENDO, DIAGN [id number] 01/29/18 Assessment/Plan - Problem List Patient Problems: All Active Problems RIGHT FACIAL SWELLING AND PAIN (Acute) Nutritional Asmnt/Malnutr-PDOC - Dietary Evaluation Malnutrition Findings (Please click <Entered> for more info): Nutritional Asmnt/Malnutrition Start: 02/03/18 12: 10 Text: Status: Complete Freq: Document 02/03/18 12:10 RICO (Rec: 02/03/18 12:31 RICO TORRES) Nutritional Asmnt/Malnutrition Patient General Information Nutritional Screening Moderate Risk Diagnosis Rt facuial cellulitis, rt pleural effusion Pertinent Medical Hx/Surgical Hx ESRD on dialysis x 7 years, COPD, hyperlipidemia, Type 2 diabetes Subjective Information Per H&P, patient was on peritoneal dialysis up to a few months ago when he was diagnosed with peritonitis ( now on HD TTS). Per nursing notes, pt refusing some medications. Diet education not appropriate at this time. Current Diet Order/ Nutrition Support 60 gm CCHO, 1200 ml fluid restriction Patient / S.O Not Indicated Pertinent Medications lipitor, Sensipar, colace, lasix, Epogen, Megacem abx, Renvela, Vitamin B complex with C Pertinent Labs ((02/02) Cr 4.5, Ca 8.5, albumin 24 Nutritional Hx/Data Height 1.68 m Height (Calculated Centimeters) 167.6 Current Weight (lbs) 79.379 kg Weight (Calculated Kilograms) 79.4 Weight (Calculated Grams) 91581.7 Jelm Body Weight 142 % Jelm Body Weight 123 Body Mass Index (BMI) 28.2 Recent Weight Change No Weight Status Overweight GI Symptoms GI Symptoms None Last BM 02/02 x 1 Difficult in: None Food Allergies No Cultural/Ethnic/Caodaism Belief none indicated Usual diet at home unknown Skin Integrity/Comment: Ba 15, cellulitis facial Current %PO Good (75-100%) Estimated Nutritional Goals BEE in Kcals: Adj wt of IBW Calories/Kcals/Kg 27-32 kcal/kg using 68.2 kg Adj wt Kcals Calculated [id number] kcal/day Protein: Adj wt of IBW Protein g/k.2-1.5 gm/kg (HD) Protein Calculated 80-100 gm/day Fluid: ml Per MD due to HD Nutritional Problem 1. Problem Problem Increased nutrient needs related to Etiology impaired skin integrity/ dialysis aeb Signs/Symptoms: Facial cellulitis and on HD Intervention/Recommendation Comments Consider modifying diet to 2gm sodium. Glucose/HG1AC low, no need for Diabetic restriction . Continue to monitor K and Phosphorus levels and need for Renal diet (not needed at this time.) Consider Prosource with meals for added protein due to cellulitis and HD. Expected Outcomes/Goals Expected Outcomes/Goals oral intake to meet >75% of nutrient needs, nutritino related labs normalize, weight stable.
[2018-02-15] MEDS: Vitamin B Complex w/Vitamin C Tab PO SCH (09:46)
[2018-02-15] MEDS: Lactobacillus Rhamnosus GG 15 Billion CFU CAP.SPRINK PO SCH ×2 (09:56→10:06)
[2018-02-15] MEDS ORDERED: Albumin 5% 12.5gm/250mL 12.5 GM/250 ML BTL IV ONE (10:00)
--- NOTE | 2018-02-15 14:23 | General Progress Note ---
Subjective - Review of Systems Service Date: 02/15/18 Subjective: sleeping, comfortable Objective - Results Result Diagrams: 02/14/18 06:10 02/14/18 06:10 Recent Labs: Laboratory Last Values WBC 8.7 Th/cmm (4.8-10.8) 02/14/18 06:10 RBC 4.00 Mil/cmm (3.80-5.80) 02/14/18 06:10 Hgb 12.1 gm/dL (12-16) 02/14/18 06:10 Hct 36.6 % (41.0-60) L 02/14/18 06:10 MCV 91.5 fl (80-99) 02/14/18 06:10 MCH 30.3 pg (27.0-31.0) 02/14/18 06:10 MCHC Differential 33.1 pg (28.0-36.0) 02/14/18 06:10 RDW 15.3 % (11.5-20.0) 02/14/18 06:10 Plt Count 306 Th/cmm (150-400) 02/14/18 06:10 MPV 6.8 fl 02/14/18 06:10 Neutrophils % 64.0 % (40.0-80.0) 02/14/18 06:10 Lymphocytes % 19.4 % (20.0-50.0) L 02/14/18 06:10 Monocytes % 8.3 % (2.0-10.0) 02/14/18 06:10 Eosinophils % 6.8 % (0.0-5.0) H 02/14/18 06:10 Basophils % 1.5 % (0.0-2.0) 02/14/18 06:10 ESR 87 mm/hr (0-20) H 01/31/18 04:15 PT 9.9 SECONDS (9.5-11.5) 01/29/18 16:42 INR 0.95 (0.5-1.4) 01/29/18 16:42 PTT (Actin FS) 29.9 SECONDS (26.0-38.0) 01/29/18 16:42 Sodium 135 mEq/L (136-145) L 02/14/18 06:10 Potassium 4.3 mEq/L (3.5-5.1) 02/14/18 06:10 Chloride 101 mEq/L (98-107) 02/14/18 06:10 Carbon Dioxide 25.7 mEq/L (21.0-31.0) 02/14/18 06:10 Anion Gap 12.6 (7.0-16.0) 02/14/18 06:10 BUN 13 mg/dL (7-25) 02/14/18 06:10 Creatinine 5.0 mg/dL (0.7-1.3) H* 02/14/18 06:10 Est GFR ( Amer) 15.1 ml/min (>90) 02/14/18 06:10 Est GFR (Non-Af Amer) 12.4 ml/min 02/14/18 06:10 BUN/Creatinine Ratio 2.6 02/14/18 06:10 Glucose 56 mg/dL (70-105) L 02/14/18 06:10 POC Glucose 106 MG/DL (70 - 105) H 02/08/18 12:11 Hemoglobin A1c % 3.5 % (4.0-6.0) L 01/31/18 04:15 Whole Bld Lactic Acid 0.55 mmol/L (0.60-1.99) L 01/29/18 16:42 Calcium 9.0 mg/dL (8.6-10.3) 02/14/18 06:10 Phosphorus 4.1 mg/dL (2.5-5.0) 01/31/18 04:15 Magnesium 1.8 mg/dL (1.9-2.7) L 02/07/18 05:30 Total Bilirubin 0.3 mg/dL (0.3-1.0) 02/14/18 06:10 AST 18 U/L (13-39) 02/14/18 06:10 ALT 5 U/L (7-52) L 02/14/18 06:10 Alkaline Phosphatase 61 U/L (34-104) 02/14/18 06:10 Creatine Kinase 12 U/L (30-223) L 01/29/18 16:42 Troponin I 0.02 ng/mL (0.01-0.05) 01/29/18 16:42 C-Reactive Protein 11.4 mg/dL (0.0-0.9) H 01/31/18 04:15 Total Protein 6.2 gm/dL (6.0-8.3) 02/14/18 06:10 Albumin 2.4 gm/dL (4.2-5.5) L 02/14/18 06:10 Globulin 3.8 gm/dL 02/14/18 06:10 Albumin/Globulin Ratio 0.6 (1.0-1.8) L 02/14/18 06:10 Triglycerides 72 mg/dL (<150) 01/31/18 04:15 Cholesterol 97 mg/dL (<200) 01/31/18 04:15 LDL Cholesterol Direct 45 mg/dL (75-193) L 01/31/18 04:15 HDL Cholesterol 36 mg/dL (23-92) 01/31/18 04:15 TSH 2.15 uIU/ml (0.34-5.60) 01/31/18 04:15 PTH Intact 36 pg/mL (15-65) 02/01/18 05:22 Urine Source MIDSTREAM 01/29/18 22:30 Urine Color YELLOW 01/29/18 22:30 Urine Clarity HAZY (CLEAR) 01/29/18 22:30 Urine pH 8.5 (4.6 - 8.0) 01/29/18 22:30 Ur Specific [place] 1.015 (1.005-1.030) 01/29/18 22:30 Urine Protein 100 mg/dL (NEGATIVE) H 01/29/18 22:30 Urine Glucose (UA) NEGATIVE mg/dL (NEGATIVE) 01/29/18 22:30 Urine Ketones NEGATIVE mg/dL (NEGATIVE) 01/29/18 22:30 Urine Blood MODERATE (NEGATIVE) H 01/29/18 22:30 Urine Nitrate NEGATIVE (NEGATIVE) 01/29/18 22:30 Urine Bilirubin NEGATIVE (NEGATIVE) 01/29/18 22:30 Urine Urobilinogen 0.2 E.U./dL (0.2 - 1.0) 01/29/18 22:30 Ur Leukocyte Esterase LARGE (NEGATIVE) H 01/29/18 22:30 Urine RBC 2-5 /hpf (0-5) H 01/29/18 22:30 Urine WBC >100 /hpf (0-5) H 01/29/18 22:30 Ur Epithelial Cells FEW /lpf (FEW) 01/29/18 22:30 Urine Bacteria MANY /hpf (NONE SEEN) H 01/29/18 22:30 Fluid Source PLEURAL 02/01/18 11:00 Fluid Color PALE YELLOW 02/01/18 11:00 Fluid Appearance HAZY 02/01/18 11:00 Fluid WBC 149 /cumm 02/01/18 11:00 Fluid RBC 185 /cumm 02/01/18 11:00 Fluid Neutrophils 2 % 02/01/18 11:00 Fluid Lymphocytes 50 % 02/01/18 11:00 Fluid Monocytes 48 % 02/01/18 11:00 Fluid Glucose 75.0 mg/dL 02/01/18 11:00 Fluid Total Protein 2.3 g/dL 02/01/18 11:00 Fluid Amylase 61 U/L 02/01/18 11:00 Random Vancomycin 22.5 ug/mL (5.0-40.0) 02/04/18 05:52 - Physical Exam Vitals and I&O: Vital Signs Temp 96.8 F 02/15/18 11:44 Pulse 78 02/15/18 12:35 Resp 18 02/15/18 12:35 BP 120/58 02/15/18 11:44 Pulse Ox 97 02/15/18 12:35 Intake & Output 02/14/18 02/15/18 02/15/18 18:59 06:59 18:59 Intake Total 350 Output Total 450 Balance -100 Weight (lbs) 67.676 kg Intake: Oral 350 Output: Chest Tube Drainage 350 Right Lower Anterior 350 Chest Urine 100 Other: # Voids 0 # Bowel Movements 0 Stool Characteristics Formed Formed Soft Brown Brown Brown Weight Source Bedscale Active Medications: Current Medications Acetaminophen (Tylenol) 650 mg PO Q6HR PRN PRN Reason: PAIN Stop: 03/30/18 23:07 Acetaminophen/Hydrocodone Bitart ([place] 5mg/325mg) 2 tab PO Q4H PRN PRN Reason: Pain (Moderate) Stop: 03/30/18 23:16 Last Admin: 02/14/18 17:13 Dose: 2 tab Albuterol Sulfate (Albuterol 2.5mg/3ml Neb Ud) 2.5 mg HHN Q1H PRN PRN Reason: Respiratory Distress Stop: 03/31/18 07:59 Last Admin: 02/01/18 15:33 Dose: 2.5 mg Albuterol/Ipratropium (Duoneb Neb) 3 ml HHN Q4HRT [facility] Stop: 03/31/18 14:59 Last Admin: 02/15/18 12:35 Dose: Not Given Atorvastatin Calcium (Lipitor) 40 mg PO HS [facility] Stop: 03/31/18 20:59 Last Admin: 02/14/18 20:32 Dose: 40 mg Cinacalcet (Sensipar) 30 mg PO DAILY AMANDA Stop: 03/31/18 08:59 Last Admin: 02/15/18 09:59 Dose: Not Given Diclofenac Sodium (Voltaren) 50 mg PO BID AMANDA Stop: 04/01/18 08:59 Last Admin: 02/15/18 09:47 Dose: 50 mg Docusate Sodium (Colace) 100 mg PO DAILY [facility] Stop: 03/31/18 08:59 Last Admin: 02/15/18 09:46 Dose: 100 mg Ceftriaxone Sodium 1 gm/ (Sodium Chloride) 50 mls @ 100 mls/hr IV Q24HR AMANDA Stop: 03/31/18 18:59 Last Admin: 02/14/18 18:55 Dose: 100 mls/hr Ipratropium [place] (Atrovent Neb 0.5mg/2.5ml) 0.5 mg HHN Q6HRT [facility]AN[facility] Stop: 03/31/18 12:59 Last Admin: 02/15/18 12:35 Dose: Not Given Lactobacillus Rhamnosus (Culturelle 15b) 1 each PO DAILY [facility] Stop: 03/30/18 23:14 Last Admin: 02/15/18 09:56 Dose: Not Given Lactobacillus Rhamnosus (Culturelle 15b) 1 each PO DAILY [facility] Stop: 04/15/18 08:59 Last Admin: 02/15/18 10:06 Dose: Not Given Megestrol Acetate (Megace) 400 mg PO DAILY AMANDA PRN Reason: Protocol Stop: 03/31/18 08:59 Last Admin: 02/15/18 09:54 Dose: Not Given Midodrine (Proamatine) 10 mg PO TID [facility] Stop: 04/16/18 00:29 Last Admin: 02/15/18 13:44 Dose: 10 mg Miscellaneous (Probiotic Screen) 1 ea MC PRN PRN PRN Reason: PROTOCOL Stop: 04/03/18 13:08 Miscellaneous (Clinical Monitoring) 1 ea MC DAILY PRN PRN Reason: RENAL Stop: 04/08/18 08:30 Miscellaneous (Probiotic Screen) 1 ea MC PRN PRN PRN Reason: PROTOCOL Stop: 04/14/18 09:44 Morphine Sulfate (Morphine) 1 mg IVP Q4HR PRN PRN Reason: Pain (Severe) Stop: 03/30/18 23:17 Last Admin: 02/10/18 21:11 Dose: 1 mg Sevelamer Carbonate (Renvela) 800 mg PO TID [facility] Stop: 03/30/18 23:14 Last Admin: 02/15/18 10:00 Dose: Not Given Vitamin B Complex/Vit C/Folic Acid (Vitamin B Complex W/Vitamin C) 1 tab PO DAILY AMANDA Stop: 03/31/18 08:59 Last Admin: 02/15/18 09:46 Dose: 1 tab General: Alert, Oriented x3, Cooperative, No acute distress HEENT: Atraumatic, PERRLA, EOMI, Mucous membr. moist/pink Neck: Supple, +2 carotid pulse wo bruit Cardiovascular: Regular rate, Normal S1, Normal S2 Lungs: Other (increased BS right lung field, (+) chest tube) Abdomen: Bowel sounds, Soft Extremities: no Edema Neurological: Sensation intact Skin: no Rash Psych/Mental Status: Mood NL - Procedures Procedures: Procedures Procedure Code Date DRAINAGE OF R PLEURAL CAV WITH DRAIN DEV, PERC APPROACH [id number] 01/29/18 DRAINAGE OF RIGHT LOWER LUNG LOBE, ENDO, DIAGN [id number] 01/29/18 Assessment/Plan - Problem List Patient Problems: All Active Problems RIGHT FACIAL SWELLING AND PAIN (Acute) - Assessment Assessment: ESRD on HD Right facial cellulitis Right lung opacification 2/2 effusion Cx UTI T2DM Anemia of CKD right PTX s/p chest tube - Plan Plan: Lab - Result Diagrams 01/31/18 04:15 01/31/18 04:15 Current Medications Acetaminophen (Tylenol) 650 mg PO Q6HR PRN PRN Reason: PAIN Stop: 03/30/18 23:07 Acetaminophen/Hydrocodone Bitart ([place] 5mg/325mg) 2 tab PO Q4H PRN PRN Reason: Pain (Moderate) Stop: 03/30/18 23:16 Last Admin: 01/29/18 23:29 Dose: 2 tab Acetylcysteine (Mucomyst 20%) 2 ml HHN Q4HRT [facility] Stop: 03/31/18 14:59 Last Admin: 01/31/18 11:27 Dose: 2 ml Albuterol Sulfate (Albuterol 2.5mg/3ml Neb Ud) 2.5 mg HHN Q1H PRN PRN Reason: Respiratory Distress Stop: 03/31/18 07:59 Albuterol/Ipratropium (Duoneb Neb) 3 ml HHN Q4HRT [facility]AN[facility] Stop: 03/31/18 14:59 Last Admin: 01/31/18 11:27 Dose: 3 ml Atorvastatin Calcium (Lipitor) 40 mg PO HS AMANDA Stop: 03/31/18 20:59 Last Admin: 01/30/18 21:19 Dose: 40 mg Cinacalcet (Sensipar) 30 mg PO DAILY [facility]ANDA Stop: 03/31/18 08:59 Last Admin: 01/31/18 08:28 Dose: Not Given Diclofenac Sodium (Voltaren) 50 mg PO BID AMANDA Stop: 04/01/18 08:59 Last Admin: 01/31/18 08:25 Dose: 50 mg Docusate Sodium (Colace) 100 mg PO DAILY AMANDA Stop: 03/31/18 08:59 Last Admin: 01/31/18 08:26 Dose: 100 mg Epoetin Vishal (Epogen) 10,000 units SUBQ MWF@1600 [facility] Stop: 04/01/18 15:59 Furosemide (Lasix) 40 mg PO DAILY AMANDA Stop: 03/31/18 08:59 Last Admin: 01/31/18 08:26 Dose: 40 mg Heparin Sodium (Porcine) (Heparin) 5,000 units IVP ONCE@2100 [facility] Stop: 01/31/18 21:01 Last Admin: 01/30/18 21:18 Dose: 5,000 units Ceftriaxone Sodium 1 gm/ (Sodium Chloride) 50 mls @ 100 mls/hr IV Q24HR AMANDA Stop: 03/31/18 18:59 Last Infusion: 01/30/18 21:50 Dose: Infused Ipratropium [place] (Atrovent Neb 0.5mg/2.5ml) 0.5 mg HHN Q6HRT [facility] Stop: 03/31/18 12:59 Last Admin: 01/31/18 00:57 Dose: Not Given Lactobacillus Rhamnosus (Culturelle 15b) 1 each PO DAILY [facility] Stop: 03/30/18 23:14 Last Admin: 01/31/18 08:27 Dose: 1 each Megestrol Acetate (Megace) 400 mg PO DAILY AMANDA PRN Reason: Protocol Stop: 03/31/18 08:59 Last Admin: 01/31/18 09:31 Dose: Not Given Metoprolol Tartrate (Lopressor) 50 mg PO BID [facility] Stop: 03/30/18 23:14 Last Admin: 01/31/18 08:27 Dose: 50 mg Midodrine (Proamatine) 5 mg PO TID PRN PRN Reason: HYPOTENSION Stop: 03/30/18 23:07 Miscellaneous (Vancomycin Iv Per Pharmacy) 1 ea MC PRN [facility] Stop: 03/30/18 21:44 Morphine Sulfate (Morphine) 1 mg IVP Q4HR PRN PRN Reason: Pain (Severe) Stop: 03/30/18 23:17 Last Admin: 01/31/18 08:17 Dose: 1 mg Sevelamer Carbonate (Renvela) 800 mg PO TID [facility] Stop: 03/30/18 23:14 Last Admin: 01/31/18 08:28 Dose: 800 mg Vitamin B Complex/Vit C/Folic Acid (Vitamin B Complex W/Vitamin C) 1 tab PO DAILY [facility] Stop: 03/31/18 08:59 Last Admin: 01/31/18 08:28 Dose: 1 t Lab - Result Diagrams 02/14/18 06:10 02/14/18 06:10 developed hypotension during dialysis, administered albumin w/ some improvement , no UF switched to Chest tube CT scan chest revealed large right effusion 2/2 compatible ATx & collapse right lung ? PNA continue Rocephin WBC @ 8.7 bronchoscopy: no endobronchial lesion Nutritional Asmnt/Malnutr-PDOC - Dietary Evaluation Malnutrition Findings (Please click <Entered> for more info): Nutritional Asmnt/Malnutrition Start: 02/03/18 12: 10 Text: Status: Complete Freq: Document 02/03/18 12:10 RICO (Rec: 02/03/18 12:31 [email or web address] VALERIO- FN) Nutritional Asmnt/Malnutrition Patient General Information Nutritional Screening Moderate Risk Diagnosis Rt facuial cellulitis, rt pleural effusion Pertinent Medical Hx/Surgical Hx ESRD on dialysis x 7 years, COPD, hyperlipidemia, Type 2 diabetes Subjective Information Per H&P, patient was on peritoneal dialysis up to a few months ago when he was diagnosed with peritonitis ( now on HD TTS). Per nursing notes, pt refusing some medications. Diet education not appropriate at this time. Current Diet Order/ Nutrition Support 60 gm CCHO, 1200 ml fluid restriction Patient / S.O Not Indicated Pertinent Medications lipitor, Sensipar, colace, lasix, Epogen, Megacem abx, Renvela, Vitamin B complex with C Pertinent Labs ((02/02) Cr 4.5, Ca 8.5, albumin 24 Nutritional Hx/Data Height 1.68 m Height (Calculated Centimeters) 167.6 Current Weight (lbs) 79.379 kg Weight (Calculated Kilograms) 79.4 Weight (Calculated Grams) 41625.7 [place] Body Weight 142 % [place] Body Weight 123 Body Mass Index (BMI) 28.2 Recent Weight Change No Weight Status Overweight GI Symptoms GI Symptoms None Last BM 02/02 x 1 Difficult in: None Food Allergies No Cultural/Ethnic/Mandaen Belief none indicated Usual diet at home unknown Skin Integrity/Comment: Ba 15, cellulitis facial Current %PO Good (75-100%) Estimated Nutritional Goals BEE in Kcals: Adj wt of IBW Calories/Kcals/Kg 27-32 kcal/kg using 68.2 kg Adj wt Kcals Calculated 8057-3178 kcal/day Protein: Adj wt of IBW Protein g/k.2-1.5 gm/kg (HD) Protein Calculated 80-100 gm/day Fluid: ml Per MD due to HD Nutritional Problem 1. Problem Problem Increased nutrient needs related to Etiology impaired skin integrity/ dialysis aeb Signs/Symptoms: Facial cellulitis and on HD Intervention/Recommendation Comments Consider modifying diet to 2gm sodium. Glucose/HG1AC low, no need for Diabetic restriction . Continue to monitor K and Phosphorus levels and need for Renal diet (not needed at this time.) Consider Prosource with meals for added protein due to cellulitis and HD. Expected Outcomes/Goals Expected Outcomes/Goals oral intake to meet >75% of nutrient needs, nutritino related labs normalize, weight stable.
[2018-02-15] MEDS: cefTRIAXone 1 GM in Sodium Chloride 0.9% 50 ML IV SCH (20:46)
[2018-02-16] MEDS: Albuterol/Ipratropium Neb 3 ML AERS HHN SCH ×7 (02:38→23:02)
[2018-02-16] MEDS: Ipratropium Neb 0.5 mg/2.5 mL UD HHN SCH ×3 (07:42→19:11)
--- NOTE | 2018-02-16 08:55 | Diagnostic Imaging Report ---
Exam: Portable chest x-ray HISTORY: Shortness of breath. Findings: Portable examination of the chest at 0738 hours reviewed and compared to prior study 02/14/2018 demonstrates unchanged appearance of tubes and lines. Right chest tube in satisfactory position and orientation there is no evidence for pneumothorax. There is evidence for significant loss of volume in right hemithorax with superimposed right lower lobe pneumonia and effusion. IMPRESSION: No evidence of pneumothorax, loss of volume of right hemithorax superimposed right-sided pneumonia and effusion. Tubes and lines unchanged position.
[2018-02-16] MEDS: Vitamin B Complex w/Vitamin C Tab PO SCH (09:25)
[2018-02-16] MEDS: Lactobacillus Rhamnosus GG 15 Billion CFU CAP.SPRINK PO SCH (09:35)
[2018-02-16 11:08] LABS: % BASOPHILS 1.9 % (0.0-2.0); % EOSINOPHILS 5.2 % (0.0-5.0); % LYMPHOCYTES 11.1 % (20.0-50.0); % MONOCYTES 5.1 % (2.0-10.0); % NEUTROPHILS 76.7 % (40.0-80.0); BASOPHILE ABSOLUTE 0.2 Th/cumm (0-0.2); EOSINOPHILE ABSOLUTE 0.6 Th/cmm (0.1-0.4); HEMATOCRIT 37.4 % (41.0-60); HEMOGLOBIN 12.1 gm/dL (12-16); LYMPHOCYTE ABSOLUTE 1.3 Th/cmm (1.5-3.0); MEAN CELL VOLUME 91.9 fl (80-99); MEAN CORPUSCULAR HEMOGLOBIN 29.7 pg (27.0-31.0); MEAN CORPUSCULAR HGB CONC 32.4 pg (28.0-36.0); MEAN PLATELET VOLUME 6.1 fl; MONOCYTE ABSOLUTE 0.6 Th/cmm (0.3-1.0); NEUTROPHILE ABSOLUTE 8.6 Th/cmm (1.8-8.0); PLATELET COUNT 326 Th/cmm (150-400); RED BLOOD COUNT 4.06 Mil/cmm (3.80-5.80); RED CELL DISTRIBUTION WIDTH 15.6 % (11.5-20.0); WHITE BLOOD COUNT 11.3 Th/cmm (4.8-10.8)
[2018-02-16 11:19] LABS: ANION GAP 10.6 (7.0-16.0); CALCIUM SERUM 9.3 mg/dL (8.6-10.3); CARBON DIOXIDE 29.8 mEq/L (21.0-31.0); GFR AFRICAN-AMERICAN 17.9 ml/min (>90); GFR NON AFRICAN-AMERICAN 14.8 ml/min; MAGNESIUM 1.7 mg/dL (1.9-2.7); POTASSIUM SERUM 4.4 mEq/L (3.5-5.1)
[2018-02-16 11:21] LABS: CREATININE - SERUM 4.3 mg/dL (0.7-1.3)
--- NOTE | 2018-02-16 14:38 | Pathology Report ---
[id number] Collection date: 02/14/2018 Surgeon: Dr. Rachel Tapia Specimen Description: Right lower lobe bronchial washing for cytology Gross Description: Received in a small plastic container is approximately 5 ml of reddish watery fluid. The entire specimen is sent for cytology processing. Microscopic Description: Examination of two cytospin slides shows inflammatory cells that consist of mostly neutrophils. There are adequate numbers of macrophages consistent with broncho-alveolar lavage. There are also large numbers of squamous cells and other upper airway material present. There is no evidence for atypia. Diagnosis: No cytologic evidence for malignancy. [facility]# [id number] [facility]
--- NOTE | 2018-02-16 15:45 | General Progress Note ---
Subjective - Review of Systems Service Date: 02/16/18 Subjective: alert, verbal, comfortable Objective - Results Result Diagrams: 02/16/18 10:59 02/16/18 10:59 Recent Labs: Laboratory Last Values WBC 11.3 Th/cmm (4.8-10.8) H 02/16/18 10:59 RBC 4.06 Mil/cmm (3.80-5.80) 02/16/18 10:59 Hgb 12.1 gm/dL (12-16) 02/16/18 10:59 Hct 37.4 % (41.0-60) L 02/16/18 10:59 MCV 91.9 fl (80-99) 02/16/18 10:59 MCH 29.7 pg (27.0-31.0) 02/16/18 10:59 MCHC Differential 32.4 pg (28.0-36.0) 02/16/18 10:59 RDW 15.6 % (11.5-20.0) 02/16/18 10:59 Plt Count 326 Th/cmm (150-400) 02/16/18 10:59 MPV 6.1 fl 02/16/18 10:59 Neutrophils % 76.7 % (40.0-80.0) 02/16/18 10:59 Lymphocytes % 11.1 % (20.0-50.0) L 02/16/18 10:59 Monocytes % 5.1 % (2.0-10.0) 02/16/18 10:59 Eosinophils % 5.2 % (0.0-5.0) H 02/16/18 10:59 Basophils % 1.9 % (0.0-2.0) 02/16/18 10:59 ESR 87 mm/hr (0-20) H 01/31/18 04:15 PT 9.9 SECONDS (9.5-11.5) 01/29/18 16:42 INR 0.95 (0.5-1.4) 01/29/18 16:42 PTT (Actin FS) 29.9 SECONDS (26.0-38.0) 01/29/18 16:42 Sodium 138 mEq/L (136-145) 02/16/18 10:59 Potassium 4.4 mEq/L (3.5-5.1) 02/16/18 10:59 Chloride 102 mEq/L (98-107) 02/16/18 10:59 Carbon Dioxide 29.8 mEq/L (21.0-31.0) 02/16/18 10:59 Anion Gap 10.6 (7.0-16.0) 02/16/18 10:59 BUN 11 mg/dL (7-25) 02/16/18 10:59 Creatinine 4.3 mg/dL (0.7-1.3) H* 02/16/18 10:59 Est GFR ( Amer) 17.9 ml/min (>90) 02/16/18 10:59 Est GFR (Non-Af Amer) 14.8 ml/min 02/16/18 10:59 BUN/Creatinine Ratio 2.6 02/16/18 10:59 Glucose 97 mg/dL (70-105) 02/16/18 10:59 POC Glucose 106 MG/DL (70 - 105) H 02/08/18 12:11 Hemoglobin A1c % 3.5 % (4.0-6.0) L 01/31/18 04:15 Whole Bld Lactic Acid 0.55 mmol/L (0.60-1.99) L 01/29/18 16:42 Calcium 9.3 mg/dL (8.6-10.3) 02/16/18 10:59 Phosphorus 4.1 mg/dL (2.5-5.0) 01/31/18 04:15 Magnesium 1.7 mg/dL (1.9-2.7) L 02/16/18 10:59 Total Bilirubin 0.3 mg/dL (0.3-1.0) 02/14/18 06:10 AST 18 U/L (13-39) 02/14/18 06:10 ALT 5 U/L (7-52) L 02/14/18 06:10 Alkaline Phosphatase 61 U/L (34-104) 02/14/18 06:10 Creatine Kinase 12 U/L (30-223) L 01/29/18 16:42 Troponin I 0.02 ng/mL (0.01-0.05) 01/29/18 16:42 C-Reactive Protein 11.4 mg/dL (0.0-0.9) H 01/31/18 04:15 Total Protein 6.2 gm/dL (6.0-8.3) 02/14/18 06:10 Albumin 2.4 gm/dL (4.2-5.5) L 02/14/18 06:10 Globulin 3.8 gm/dL 02/14/18 06:10 Albumin/Globulin Ratio 0.6 (1.0-1.8) L 02/14/18 06:10 Triglycerides 72 mg/dL (<150) 01/31/18 04:15 Cholesterol 97 mg/dL (<200) 01/31/18 04:15 LDL Cholesterol Direct 45 mg/dL (75-193) L 01/31/18 04:15 HDL Cholesterol 36 mg/dL (23-92) 01/31/18 04:15 TSH 2.15 uIU/ml (0.34-5.60) 01/31/18 04:15 PTH Intact 36 pg/mL (15-65) 02/01/18 05:22 Urine Source MIDSTREAM 01/29/18 22:30 Urine Color YELLOW 01/29/18 22:30 Urine Clarity HAZY (CLEAR) 01/29/18 22:30 Urine pH 8.5 (4.6 - 8.0) 01/29/18 22:30 Ur Specific Stephenson 1.015 (1.005-1.030) 01/29/18 22:30 Urine Protein 100 mg/dL (NEGATIVE) H 01/29/18 22:30 Urine Glucose (UA) NEGATIVE mg/dL (NEGATIVE) 01/29/18 22:30 Urine Ketones NEGATIVE mg/dL (NEGATIVE) 01/29/18 22:30 Urine Blood MODERATE (NEGATIVE) H 01/29/18 22:30 Urine Nitrate NEGATIVE (NEGATIVE) 01/29/18 22:30 Urine Bilirubin NEGATIVE (NEGATIVE) 01/29/18 22:30 Urine Urobilinogen 0.2 E.U./dL (0.2 - 1.0) 01/29/18 22:30 Ur Leukocyte Esterase LARGE (NEGATIVE) H 01/29/18 22:30 Urine RBC 2-5 /hpf (0-5) H 01/29/18 22:30 Urine WBC >100 /hpf (0-5) H 01/29/18 22:30 Ur Epithelial Cells FEW /lpf (FEW) 01/29/18 22:30 Urine Bacteria MANY /hpf (NONE SEEN) H 01/29/18 22:30 Fluid Source PLEURAL 02/01/18 11:00 Fluid Color PALE YELLOW 02/01/18 11:00 Fluid Appearance HAZY 02/01/18 11:00 Fluid WBC 149 /cumm 02/01/18 11:00 Fluid RBC 185 /cumm 02/01/18 11:00 Fluid Neutrophils 2 % 02/01/18 11:00 Fluid Lymphocytes 50 % 02/01/18 11:00 Fluid Monocytes 48 % 02/01/18 11:00 Fluid Glucose 75.0 mg/dL 02/01/18 11:00 Fluid Total Protein 2.3 g/dL 02/01/18 11:00 Fluid Amylase 61 U/L 02/01/18 11:00 Random Vancomycin 22.5 ug/mL (5.0-40.0) 02/04/18 05:52 - Physical Exam Vitals and I&O: Vital Signs Temp 96.8 F 02/16/18 14:13 Pulse 81 02/16/18 14:49 Resp 18 02/16/18 14:49 BP 102/53 02/16/18 14:13 Pulse Ox 98 02/16/18 14:49 Intake & Output 02/15/18 02/16/18 02/16/18 18:59 06:59 18:59 Intake Total 25 Output Total 150 Balance -125 Weight (lbs) 67.676 kg 66.678 kg Intake: Oral 25 Output: Chest Tube Drainage 150 Right Lower Anterior 150 Chest Other: # Voids 3 # Bowel Movements 0 Stool Characteristics Soft Brown Weight Source Bedscale Standing scale Active Medications: Current Medications Acetaminophen (Tylenol) 650 mg PO Q6HR PRN PRN Reason: PAIN Stop: 03/30/18 23:07 Acetaminophen/Hydrocodone Bitart ([place] 5mg/325mg) 2 tab PO Q4H PRN PRN Reason: Pain (Moderate) Stop: 03/30/18 23:16 Last Admin: 02/14/18 17:13 Dose: 2 tab Albuterol Sulfate (Albuterol 2.5mg/3ml Neb Ud) 2.5 mg HHN Q1H PRN PRN Reason: Respiratory Distress Stop: 03/31/18 07:59 Last Admin: 02/01/18 15:33 Dose: 2.5 mg Albuterol/Ipratropium (Duoneb Neb) 3 ml HHN Q4HRT [facility] Stop: 03/31/18 14:59 Last Admin: 02/16/18 14:49 Dose: 3 ml Atorvastatin Calcium (Lipitor) 40 mg PO HS [facility] Stop: 03/31/18 20:59 Last Admin: 02/15/18 20:52 Dose: Not Given Cinacalcet (Sensipar) 30 mg PO DAILY [facility] Stop: 03/31/18 08:59 Last Admin: 02/16/18 09:25 Dose: 30 mg Diclofenac Sodium (Voltaren) 50 mg PO BID [facility] Stop: 04/01/18 08:59 Last Admin: 02/16/18 09:30 Dose: 50 mg Docusate Sodium (Colace) 100 mg PO DAILY [facility] Stop: 03/31/18 08:59 Last Admin: 02/16/18 09:30 Dose: 100 mg Ceftriaxone Sodium 1 gm/ (Sodium Chloride) 50 mls @ 100 mls/hr IV Q24HR [facility] Stop: 03/31/18 18:59 Last Admin: 02/15/18 20:46 Dose: 100 mls/hr Ipratropium [place] (Atrovent Neb 0.5mg/2.5ml) 0.5 mg HHN Q6HRT [facility] Stop: 03/31/18 12:59 Last Admin: 02/16/18 14:49 Dose: Not Given Lactobacillus Rhamnosus (Culturelle 15b) 1 each PO DAILY [facility] Stop: 04/15/18 08:59 Last Admin: 02/16/18 09:35 Dose: 1 each Megestrol Acetate (Megace) 400 mg PO DAILY [facility] PRN Reason: Protocol Stop: 03/31/18 08:59 Last Admin: 02/16/18 09:25 Dose: 400 mg Midodrine (Proamatine) 10 mg PO TID [facility] Stop: 04/16/18 00:29 Last Admin: 02/16/18 13:06 Dose: 10 mg Miscellaneous (Clinical Monitoring) 1 ea MC DAILY PRN PRN Reason: RENAL Stop: 04/08/18 08:30 Miscellaneous (Probiotic Screen) 1 ea MC PRN PRN PRN Reason: PROTOCOL Stop: 04/14/18 09:44 Morphine Sulfate (Morphine) 1 mg IVP Q4HR PRN PRN Reason: Pain (Severe) Stop: 03/30/18 23:17 Last Admin: 02/10/18 21:11 Dose: 1 mg Sevelamer Carbonate (Renvela) 800 mg PO TID [facility] Stop: 03/30/18 23:14 Last Admin: 02/16/18 13:06 Dose: 800 mg Vitamin B Complex/Vit C/Folic Acid (Vitamin B Complex W/Vitamin C) 1 tab PO DAILY [facility] Stop: 03/31/18 08:59 Last Admin: 02/16/18 09:25 Dose: 1 tab General: Alert, Oriented x3, Cooperative, No acute distress HEENT: Atraumatic, PERRLA, EOMI, Mucous membr. moist/pink Neck: Supple, +2 carotid pulse wo bruit Cardiovascular: Regular rate, Normal S1, Normal S2 Lungs: Other (increased BS right lung field, (+) chest tube) Abdomen: Bowel sounds, Soft Extremities: no Edema Neurological: Sensation intact Skin: no Rash Psych/Mental Status: Mood NL - Procedures Procedures: Procedures Procedure Code Date DRAINAGE OF R PLEURAL CAV WITH DRAIN DEV, PERC APPROACH [id number] 01/29/18 DRAINAGE OF RIGHT LOWER LUNG LOBE, ENDO, DIAGN [id number] 01/29/18 Assessment/Plan - Problem List Patient Problems: All Active Problems RIGHT FACIAL SWELLING AND PAIN (Acute) - Assessment Assessment: ESRD on HD Right facial cellulitis Right lung opacification 2/2 effusion Cx UTI T2DM Anemia of CKD right PTX s/p chest tube - Plan Plan: Lab - Result Diagrams 01/31/18 04:15 01/31/18 04:15 Current Medications Acetaminophen (Tylenol) 650 mg PO Q6HR PRN PRN Reason: PAIN Stop: 03/30/18 23:07 Acetaminophen/Hydrocodone Bitart ([place] 5mg/325mg) 2 tab PO Q4H PRN PRN Reason: Pain (Moderate) Stop: 03/30/18 23:16 Last Admin: 01/29/18 23:29 Dose: 2 tab Acetylcysteine (Mucomyst 20%) 2 ml HHN Q4HRT [facility] Stop: 03/31/18 14:59 Last Admin: 01/31/18 11:27 Dose: 2 ml Albuterol Sulfate (Albuterol 2.5mg/3ml Neb Ud) 2.5 mg HHN Q1H PRN PRN Reason: Respiratory Distress Stop: 03/31/18 07:59 Albuterol/Ipratropium (Duoneb Neb) 3 ml HHN Q4HRT [facility] Stop: 03/31/18 14:59 Last Admin: 01/31/18 11:27 Dose: 3 ml Atorvastatin Calcium (Lipitor) 40 mg PO HS [facility] Stop: 03/31/18 20:59 Last Admin: 01/30/18 21:19 Dose: 40 mg Cinacalcet (Sensipar) 30 mg PO DAILY [facility] Stop: 03/31/18 08:59 Last Admin: 01/31/18 08:28 Dose: Not Given Diclofenac Sodium (Voltaren) 50 mg PO BID [facility] Stop: 04/01/18 08:59 Last Admin: 01/31/18 08:25 Dose: 50 mg Docusate Sodium (Colace) 100 mg PO DAILY [facility] Stop: 03/31/18 08:59 Last Admin: 01/31/18 08:26 Dose: 100 mg Epoetin Vishal (Epogen) 10,000 units SUBQ MWF@1600 [facility] Stop: 04/01/18 15:59 Furosemide (Lasix) 40 mg PO DAILY [facility] Stop: 03/31/18 08:59 Last Admin: 01/31/18 08:26 Dose: 40 mg Heparin Sodium (Porcine) (Heparin) 5,000 units IVP ONCE@2100 [facility] Stop: 01/31/18 21:01 Last Admin: 01/30/18 21:18 Dose: 5,000 units Ceftriaxone Sodium 1 gm/ (Sodium Chloride) 50 mls @ 100 mls/hr IV Q24HR [facility] Stop: 03/31/18 18:59 Last Infusion: 01/30/18 21:50 Dose: Infused Ipratropium [place] (Atrovent Neb 0.5mg/2.5ml) 0.5 mg HHN Q6HRT [facility] Stop: 03/31/18 12:59 Last Admin: 01/31/18 00:57 Dose: Not Given Lactobacillus Rhamnosus (Culturelle 15b) 1 each PO DAILY [facility] Stop: 03/30/18 23:14 Last Admin: 01/31/18 08:27 Dose: 1 each Megestrol Acetate (Megace) 400 mg PO DAILY [facility] PRN Reason: Protocol Stop: 03/31/18 08:59 Last Admin: 01/31/18 09:31 Dose: Not Given Metoprolol Tartrate (Lopressor) 50 mg PO BID [facility] Stop: 03/30/18 23:14 Last Admin: 01/31/18 08:27 Dose: 50 mg Midodrine (Proamatine) 5 mg PO TID PRN PRN Reason: HYPOTENSION Stop: 03/30/18 23:07 Miscellaneous (Vancomycin Iv Per Pharmacy) 1 ea MC PRN [facility] Stop: 03/30/18 21:44 Morphine Sulfate (Morphine) 1 mg IVP Q4HR PRN PRN Reason: Pain (Severe) Stop: 03/30/18 23:17 Last Admin: 01/31/18 08:17 Dose: 1 mg Sevelamer Carbonate (Renvela) 800 mg PO TID [facility] Stop: 03/30/18 23:14 Last Admin: 01/31/18 08:28 Dose: 800 mg Vitamin B Complex/Vit C/Folic Acid (Vitamin B Complex W/Vitamin C) 1 tab PO DAILY [facility] Stop: 03/31/18 08:59 Last Admin: 01/31/18 08:28 Dose: 1 t Lab - Result Diagrams 02/16/18 10:59 02/16/18 10:59 developed hypotension during dialysis, administered albumin w/ some improvement , no UF switched to Chest tube CT scan chest revealed large right effusion 2/2 compatible ATx & collapse right lung ? PNA continue Rocephin WBC up to 11.3 bronchoscopy: no endobronchial lesion CXR: no PTX, decreased right lung volume/ PNA/effusion Nutritional Asmnt/Malnutr-PDOC - Dietary Evaluation Malnutrition Findings (Please click <Entered> for more info): Nutritional Asmnt/Malnutrition Start: 02/03/18 12: 10 Text: Status: Complete Freq: Document 02/03/18 12:10 MMULN (Rec: 02/03/18 12:31 MMULRAUL VALERIO- [id number]) Nutritional Asmnt/Malnutrition Patient General Information Nutritional Screening Moderate Risk Diagnosis Rt facuial cellulitis, rt pleural effusion Pertinent Medical Hx/Surgical Hx ESRD on dialysis x 7 years, COPD, hyperlipidemia, Type 2 diabetes Subjective Information Per H&P, patient was on peritoneal dialysis up to a few months ago when he was diagnosed with peritonitis ( now on HD TTS). Per nursing notes, pt refusing some medications. Diet education not appropriate at this time. Current Diet Order/ Nutrition Support 60 gm CCHO, 1200 ml fluid restriction Patient / S.O Not Indicated Pertinent Medications lipitor, Sensipar, colace, lasix, Epogen, Megacem abx, Renvela, Vitamin B complex with C Pertinent Labs ((02/02) Cr 4.5, Ca 8.5, albumin 24 Nutritional Hx/Data Height 1.68 m Height (Calculated Centimeters) 167.6 Current Weight (lbs) 79.379 kg Weight (Calculated Kilograms) 79.4 Weight (Calculated Grams) 84701.7 [place] Body Weight 142 % [place] Body Weight 123 Body Mass Index (BMI) 28.2 Recent Weight Change No Weight Status Overweight GI Symptoms GI Symptoms None Last BM 02/02 x 1 Difficult in: None Food Allergies No Cultural/Ethnic/[employer]al Belief none indicated Usual diet at home unknown Skin Integrity/Comment: Ba 15, cellulitis facial Current %PO Good (75-100%) Estimated Nutritional Goals BEE in Kcals: Adj wt of IBW Calories/Kcals/Kg 27-32 kcal/kg using 68.2 kg Adj wt Kcals Calculated 9606-0623 kcal/day Protein: Adj wt of IBW Protein g/k.2-1.5 gm/kg (HD) Protein Calculated 80-100 gm/day Fluid: ml Per MD due to HD Nutritional Problem 1. Problem Problem Increased nutrient needs related to Etiology impaired skin integrity/ dialysis aeb Signs/Symptoms: Facial cellulitis and on HD Intervention/Recommendation Comments Consider modifying diet to 2gm sodium. Glucose/HG1AC low, no need for Diabetic restriction . Continue to monitor K and Phosphorus levels and need for Renal diet (not needed at this time.) Consider Prosource with meals for added protein due to cellulitis and HD. Expected Outcomes/Goals Expected Outcomes/Goals oral intake to meet >75% of nutrient needs, nutritino related labs normalize, weight stable.
[2018-02-16] MEDS: cefTRIAXone 1 GM in Sodium Chloride 0.9% 50 ML IV SCH (18:44)
[2018-02-16] MEDS ORDERED: Maalox 30 mL Cup PO PRN (22:03)
[2018-02-17] MEDS: Ipratropium Neb 0.5 mg/2.5 mL UD HHN SCH ×2 (01:51→19:17)
[2018-02-17] MEDS: Albuterol/Ipratropium Neb 3 ML AERS HHN SCH ×6 (02:56→23:18)
[2018-02-17 06:44] LABS: % BASOPHILS 1.4 % (0.0-2.0); % LYMPHOCYTES 18.7 % (20.0-50.0); % MONOCYTES 7.1 % (2.0-10.0); % NEUTROPHILS 63.8 % (40.0-80.0); BASOPHILE ABSOLUTE 0.1 Th/cumm (0-0.2); EOSINOPHILE ABSOLUTE 0.9 Th/cmm (0.1-0.4); HEMATOCRIT 36.2 % (41.0-60); HEMOGLOBIN 11.8 gm/dL (12-16); LYMPHOCYTE ABSOLUTE 1.9 Th/cmm (1.5-3.0); MEAN CELL VOLUME 91.5 fl (80-99); MEAN CORPUSCULAR HEMOGLOBIN 29.9 pg (27.0-31.0); MEAN CORPUSCULAR HGB CONC 32.6 pg (28.0-36.0); MEAN PLATELET VOLUME 6.9 fl; MONOCYTE ABSOLUTE 0.7 Th/cmm (0.3-1.0); NEUTROPHILE ABSOLUTE 6.4 Th/cmm (1.8-8.0); PLATELET COUNT 326 Th/cmm (150-400); RED BLOOD COUNT 3.95 Mil/cmm (3.80-5.80); RED CELL DISTRIBUTION WIDTH 15.6 % (11.5-20.0)
[2018-02-17 07:28] LABS: ANION GAP 10.3 (7.0-16.0); CALCIUM SERUM 9.3 mg/dL (8.6-10.3); CARBON DIOXIDE 29.1 mEq/L (21.0-31.0); GFR AFRICAN-AMERICAN 12.4 ml/min (>90); GFR NON AFRICAN-AMERICAN 10.3 ml/min; POTASSIUM SERUM 4.4 mEq/L (3.5-5.1)
[2018-02-17 07:33] LABS: CREATININE - SERUM 5.9 mg/dL (0.7-1.3)
[2018-02-17] MEDS: Vitamin B Complex w/Vitamin C Tab PO SCH (08:59)
[2018-02-17] MEDS: Lactobacillus Rhamnosus GG 15 Billion CFU CAP.SPRINK PO SCH (08:59)
[2018-02-17] MEDS ORDERED: Albumin 25% 25gm/100mL 25 GM/100 ML BTL IV ONE (11:25)
[2018-02-17] MEDS ORDERED: Levofloxacin 250mg/50mL 250 MG/50 ML BAG IV SCH (15:45)
[2018-02-17 17:16] LABS: URINE MICROSCOPIC INDICATED? YES; URINE SOURCE CLEAN C
[2018-02-17 17:17] LABS: URINE BILIRUBIN NEGATIVE (NEGATIVE); URINE BLOOD LARGE (NEGATIVE); URINE GLUCOSE (UA) 100 mg/dL (NEGATIVE); URINE KETONE NEGATIVE (NEGATIVE); URINE LEUKOCYTE ESTERASE SMALL (NEGATIVE); URINE NITRATE NEGATIVE (NEGATIVE); URINE PH 8.5 (4.6 - 8.0); URINE PROTEIN >=300 mg/dL (NEGATIVE); URINE UROBILINOGEN 0.2 E.U./dL (0.2 - 1.0)
[2018-02-17 17:21] LABS: URINE CLARITY HAZY (CLEAR); URINE COLOR YELLOW
[2018-02-17 17:27] LABS: URINE BACTERIA FEW /hpf (NONE SEEN); URINE EPITHELIAL CELLS MODERATE /lpf (FEW); URINE RBC 25-50 /hpf (0-5)
[2018-02-17] MEDS: Hydrocodone/APAP 5mg/325mg Tab PO PRN (21:03)
--- NOTE | 2018-02-18 04:50 | Consultation ---
DATE OF CONSULTATION: 02/18/2018 REFERRING PHYSICIAN: Dr. Arriola and Dr. Verdugo. REASON FOR CONSULTATION: Empyema with extensive pneumonia on the right side with pleural fluid culture and growing Pseudomonas aeruginosa. HISTORY OF PRESENT ILLNESS: The patient is a 67-year-old male with a past medical history of smoking, which he quit a few months ago, CKD stage V, on hemodialysis for 7 years, COPD, hyperlipidemia, and diabetes mellitus type 2. He was doing well prior to his admission to the hospital. He developed right-sided facial swelling with redness and pain. He denies any trauma or any unusual event. On initial evaluation, he was afebrile and his WBC count is 12,200. Urinalysis showed pyuria and bacteriuria consistent with a UTI. Chest XRay showed complete opacification of right hemithorax. His initial diagnosis was right facial swelling and redness consistent with cellulitis. Complete opacification of the right hemithorax and UTI. Vancomycin and Rocephin were started. Ultrasound of the face performed on 01/30/2018, showed cellulitis. CT of the chest performed on 01/31/2018, showed right pleural effusion with compressive atelectasis, collapse of the right lung, and underlying pneumonia. Common bile duct was dilated up to 1.2 cm. Ultrasound-guided thoracentesis performed on 02/01/2018 and 1 liter of yellow tinted pleural fluid was aspirated. The pleural fluid studies showed hazy fluid with WBC 149, RBC 185, monocyte 48, and lymphocytes 50. WBC count has improved. On 02/05/2018, 4 liter of serous fluid removed and PleurX tube was placed into the right side. On 01/09/2018, right-sided chest tube was placed in, because of the pneumothorax. On 02/12/2018, 3rd CT scan of the chest performed. It showed persistent right pneumothorax, persistent decreased parenchymal density in right lower lobe consistent with atelectases and/or consolidation. Persistent cardiomegaly with evidence of severe carotid disease. On 02/14/2018, bronchoscopy was performed and copious amount of bloody secretions removed from the right side. Fluid culture grew Pseudomonas aeruginosa. Unfotunately, BAL cultures were canceled at this time. Pleural fluid culture grew Pseudomonas aeruginosa. Antibiotics were changed to Levaquin. ID consult was called for antibiotic management. PMH: CKD stage V, on hemodialysis for 7 years, COPD, hyperlipidemia, and diabetes mellitus type 2. ALLERGY: NKDA. Medications: As per medication reconciliation sheet. Antibiotoc-dumas, he is receiving levaquin. SH: Has history of smoking, no alcohol or drug use. ROS: Gen: No fever, no chills. c/o peggy loss. HEENT: Denies diplopia, photophobia. Denies sore throat. RS: Cough present, denies shortness of breath. CVS: denies any chest pains, palpitations, or leg swellings. GI: Denies any nausea, vomiting, abdominal pains, diarrhea, constipations. SKIN: there is no rash or hives. 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 PE: GEN: Cachectic. Vital signs: Temperature 98.7F pulse 62 respiration 18 blood pressure 109/51 HEENT: Head: normocephalic atraumatic. Oral cavity: moist, pink tongue. Eyes: pallor is present. no icterus.Pupil PERRLA. EOMI. Neck: Supple. no JVD, no use of accessory neck muscles. CHEST: Vesicular breath sounds, right sided chest tube with watershield drainage. crackles and decreased breath sounds in right. HEART: S1 and S2 WNL. ABDOMEN: Soft NTND BS present. EXTREMITIES: NCCE. RAW MILL OPERATOR: AAOx3. No focal neurodeficit. LAB: WBC 10,000 him 11.8 hematocrit 36.2 platelets are 326,000 neutrophils 64%. Sodium 138 potassium 4.4 chloride 103 bicarbonate is 29 BUN is 16 creatinine 5.9 glucose is 69. Fluid culture grew Pseudomonas aeruginosa. CT scans reviewed. IMPRESSION: 1. Pleural effusion with lymphocyte predominance. Empyema culture growing Pseudomonas. It is not clear whether it is from the bronchoalveolar lavage are from the pleural fluid. The differential includes fungal pneumonia and may have malignant pleural effusion, may have tuberculous empyema. 2. Pseudomonas pneumonia. 3. Chronic kidney disease stage 5, on hemodialysis. 4. Diabetes mellitus type 2. 5. Chronic obstructive pulmonary disease. 6. Hyperlipidemia. 7. Urinary tract infection, treated. 8. Hyperlipidemia. RECOMMENDATIONS: Check the TB Gold QuantiFERON, cocci serology, may send pleural fluid for AFB, may send pleural fluid for adenosine deaminase. Antibiotic dumas, continue levofloxacin. Thank you, Dr. Verdugo and Dr. Arriola for involving me in taking care of this patient. JOB# [id number] [place]
[2018-02-18 06:49] LABS: % BASOPHILS 1.6 % (0.0-2.0); % LYMPHOCYTES 24.2 % (20.0-50.0); % MONOCYTES 9.1 % (2.0-10.0); % NEUTROPHILS 55.1 % (40.0-80.0); BASOPHILE ABSOLUTE 0.1 Th/cumm (0-0.2); EOSINOPHILE ABSOLUTE 0.8 Th/cmm (0.1-0.4); HEMATOCRIT 34.7 % (41.0-60); HEMOGLOBIN 11.6 gm/dL (12-16); LYMPHOCYTE ABSOLUTE 1.9 Th/cmm (1.5-3.0); MEAN CELL VOLUME 91.2 fl (80-99); MEAN CORPUSCULAR HEMOGLOBIN 30.3 pg (27.0-31.0); MEAN CORPUSCULAR HGB CONC 33.2 pg (28.0-36.0); MONOCYTE ABSOLUTE 0.7 Th/cmm (0.3-1.0); NEUTROPHILE ABSOLUTE 4.4 Th/cmm (1.8-8.0); PLATELET COUNT 297 Th/cmm (150-400); RED BLOOD COUNT 3.81 Mil/cmm (3.80-5.80); RED CELL DISTRIBUTION WIDTH 15.4 % (11.5-20.0); WHITE BLOOD COUNT 7.9 Th/cmm (4.8-10.8)
[2018-02-18 07:04] LABS: ALB/GLOB RATIO 0.9 (1.0-1.8); ALBUMIN 2.8 gm/dL (4.2-5.5); ANION GAP 8.1 (7.0-16.0); BILIRUBIN,TOTAL 0.4 mg/dL (0.3-1.0); CALCIUM SERUM 9.1 mg/dL (8.6-10.3); CARBON DIOXIDE 33.2 mEq/L (21.0-31.0); CREATININE - SERUM 3.8 mg/dL (0.7-1.3); GFR AFRICAN-AMERICAN 20.7 ml/min (>90); GFR NON AFRICAN-AMERICAN 17.1 ml/min; POTASSIUM SERUM 4.3 mEq/L (3.5-5.1)
[2018-02-18] MEDS: Albuterol/Ipratropium Neb 3 ML AERS HHN SCH ×5 (07:34→22:37)
[2018-02-18] MEDS: Vitamin B Complex w/Vitamin C Tab PO SCH (08:19)
[2018-02-18] MEDS: Lactobacillus Rhamnosus GG 15 Billion CFU CAP.SPRINK PO SCH (08:20)
--- NOTE | 2018-02-18 09:53 | General Progress Note ---
Subjective - Review of Systems Service Date: 02/18/18 Events since last encounter: cytology negative, drainage 30 cc per 12 hrs, serous Objective - Results Result Diagrams: 02/18/18 05:50 02/18/18 05:50 Recent Labs: Laboratory Last Values WBC 7.9 Th/cmm (4.8-10.8) 02/18/18 05:50 RBC 3.81 Mil/cmm (3.80-5.80) 02/18/18 05:50 Hgb 11.6 gm/dL (12-16) L 02/18/18 05:50 Hct 34.7 % (41.0-60) L 02/18/18 05:50 MCV 91.2 fl (80-99) 02/18/18 05:50 MCH 30.3 pg (27.0-31.0) 02/18/18 05:50 MCHC Differential 33.2 pg (28.0-36.0) 02/18/18 05:50 RDW 15.4 % (11.5-20.0) 02/18/18 05:50 Plt Count 297 Th/cmm (150-400) 02/18/18 05:50 MPV 7.0 fl 02/18/18 05:50 Neutrophils % 55.1 % (40.0-80.0) 02/18/18 05:50 Lymphocytes % 24.2 % (20.0-50.0) 02/18/18 05:50 Monocytes % 9.1 % (2.0-10.0) 02/18/18 05:50 Eosinophils % 10.0 % (0.0-5.0) H 02/18/18 05:50 Basophils % 1.6 % (0.0-2.0) 02/18/18 05:50 ESR 87 mm/hr (0-20) H 01/31/18 04:15 PT 9.9 SECONDS (9.5-11.5) 01/29/18 16:42 INR 0.95 (0.5-1.4) 01/29/18 16:42 PTT (Actin FS) 29.9 SECONDS (26.0-38.0) 01/29/18 16:42 Sodium 139 mEq/L (136-145) 02/18/18 05:50 Potassium 4.3 mEq/L (3.5-5.1) 02/18/18 05:50 Chloride 102 mEq/L (98-107) 02/18/18 05:50 Carbon Dioxide 33.2 mEq/L (21.0-31.0) H 02/18/18 05:50 Anion Gap 8.1 (7.0-16.0) 02/18/18 05:50 BUN 11 mg/dL (7-25) 02/18/18 05:50 Creatinine 3.8 mg/dL (0.7-1.3) H 02/18/18 05:50 Est GFR ( Amer) 20.7 ml/min (>90) 02/18/18 05:50 Est GFR (Non-Af Amer) 17.1 ml/min 02/18/18 05:50 BUN/Creatinine Ratio 2.9 02/18/18 05:50 Glucose 72 mg/dL (70-105) 02/18/18 05:50 POC Glucose 106 MG/DL (70 - 105) H 02/08/18 12:11 Hemoglobin A1c % 3.5 % (4.0-6.0) L 01/31/18 04:15 Whole Bld Lactic Acid 0.55 mmol/L (0.60-1.99) L 01/29/18 16:42 Calcium 9.1 mg/dL (8.6-10.3) 02/18/18 05:50 Phosphorus 4.1 mg/dL (2.5-5.0) 01/31/18 04:15 Magnesium 2.0 mg/dL (1.9-2.7) 02/17/18 05:49 Total Bilirubin 0.4 mg/dL (0.3-1.0) 02/18/18 05:50 AST 12 U/L (13-39) L 02/18/18 05:50 ALT 5 U/L (7-52) L 02/18/18 05:50 Alkaline Phosphatase 59 U/L (34-104) 02/18/18 05:50 Creatine Kinase 12 U/L (30-223) L 01/29/18 16:42 Troponin I 0.02 ng/mL (0.01-0.05) 01/29/18 16:42 C-Reactive Protein 11.4 mg/dL (0.0-0.9) H 01/31/18 04:15 Total Protein 6.0 gm/dL (6.0-8.3) 02/18/18 05:50 Albumin 2.8 gm/dL (4.2-5.5) L 02/18/18 05:50 Globulin 3.2 gm/dL 02/18/18 05:50 Albumin/Globulin Ratio 0.9 (1.0-1.8) L 02/18/18 05:50 Triglycerides 72 mg/dL (<150) 01/31/18 04:15 Cholesterol 97 mg/dL (<200) 01/31/18 04:15 LDL Cholesterol Direct 45 mg/dL (75-193) L 01/31/18 04:15 HDL Cholesterol 36 mg/dL (23-92) 01/31/18 04:15 TSH 2.15 uIU/ml (0.34-5.60) 01/31/18 04:15 PTH Intact 36 pg/mL (15-65) 02/01/18 05:22 Urine Source CLEAN C 02/17/18 16:59 Urine Color YELLOW 02/17/18 16:59 Urine Clarity HAZY (CLEAR) 02/17/18 16:59 Urine pH 8.5 (4.6 - 8.0) 02/17/18 16:59 Ur Specific [place] 1.020 (1.005-1.030) 02/17/18 16:59 Urine Protein >=300 mg/dL (NEGATIVE) 02/17/18 16:59 Urine Glucose (UA) 100 mg/dL (NEGATIVE) H 02/17/18 16:59 Urine Ketones NEGATIVE mg/dL (NEGATIVE) 02/17/18 16:59 Urine Blood LARGE (NEGATIVE) H 02/17/18 16:59 Urine Nitrate NEGATIVE (NEGATIVE) 02/17/18 16:59 Urine Bilirubin NEGATIVE (NEGATIVE) 02/17/18 16:59 Urine Urobilinogen 0.2 E.U./dL (0.2 - 1.0) 02/17/18 16:59 Ur Leukocyte Esterase SMALL (NEGATIVE) H 02/17/18 16:59 Urine RBC 25-50 /hpf (0-5) H 02/17/18 16:59 Urine WBC 6-10 /hpf (0-5) 02/17/18 16:59 Ur Epithelial Cells MODERATE /lpf (FEW) 02/17/18 16:59 Urine Bacteria FEW /hpf (NONE SEEN) 02/17/18 16:59 Fluid Source PLEURAL 02/01/18 11:00 Fluid Color PALE YELLOW 02/01/18 11:00 Fluid Appearance HAZY 02/01/18 11:00 Fluid WBC 149 /cumm 02/01/18 11:00 Fluid RBC 185 /cumm 02/01/18 11:00 Fluid Neutrophils 2 % 02/01/18 11:00 Fluid Lymphocytes 50 % 02/01/18 11:00 Fluid Monocytes 48 % 02/01/18 11:00 Fluid Glucose 75.0 mg/dL 02/01/18 11:00 Fluid Total Protein 2.3 g/dL 02/01/18 11:00 Fluid Amylase 61 U/L 02/01/18 11:00 Random Vancomycin 22.5 ug/mL (5.0-40.0) 02/04/18 05:52 - Physical Exam Vitals and I&O: Vital Signs Temp 96.9 F 02/18/18 08:00 Pulse 63 02/18/18 08:00 Resp 18 02/18/18 08:00 BP 117/70 02/18/18 08:00 Pulse Ox 100 02/18/18 08:00 Intake & Output 02/17/18 02/18/18 02/18/18 18:59 06:59 18:59 Intake Total 50 150 Output Total 20 Balance 50 130 Weight (lbs) 66.678 kg 66.678 kg Intake: Intake, IV Amount 50 Levofloxacin 250mg/50mL 50 250 mg In 50 ml @ 50 mls/ hr IV Q24HR [facility] Rx#: [id number] Oral 150 Output: Chest Tube Drainage 20 Right Lower Anterior 20 Chest Other: # Voids 0 2 # Bowel Movements 0 2 Weight Source Bedscale Bedscale Active Medications: Current Medications Acetaminophen (Tylenol) 650 mg PO Q6HR PRN PRN Reason: PAIN Stop: 03/30/18 23:07 Acetaminophen/Hydrocodone Bitart ([place] 5mg/325mg) 2 tab PO Q4H PRN PRN Reason: Pain (Moderate) Stop: 03/30/18 23:16 Last Admin: 02/17/18 21:03 Dose: 2 tab Al Hydrox/Mg Hydrox/Simethicone (Maalox) 30 ml PO Q4H PRN PRN Reason: Heartburn Stop: 04/17/18 22:02 Last Admin: 02/16/18 22:29 Dose: 30 ml Albuterol Sulfate (Albuterol 2.5mg/3ml Neb Ud) 2.5 mg HHN Q1H PRN PRN Reason: Respiratory Distress Stop: 03/31/18 07:59 Last Admin: 02/01/18 15:33 Dose: 2.5 mg Albuterol/Ipratropium (Duoneb Neb) 3 ml HHN Q4HRT AMANDA Stop: 03/31/18 14:59 Last Admin: 02/18/18 07:34 Dose: 3 ml Atorvastatin Calcium (Lipitor) 40 mg PO HS [facility] Stop: 03/31/18 20:59 Last Admin: 02/17/18 21:02 Dose: 40 mg Cinacalcet (Sensipar) 30 mg PO DAILY [facility] Stop: 03/31/18 08:59 Last Admin: 02/18/18 08:19 Dose: Not Given Diclofenac Sodium (Voltaren) 50 mg PO BID [facility] Stop: 04/01/18 08:59 Last Admin: 02/18/18 08:19 Dose: 50 mg Docusate Sodium (Colace) 100 mg PO DAILY [facility] Stop: 03/31/18 08:59 Last Admin: 02/18/18 08:19 Dose: 100 mg Famotidine (Pepcid) 20 mg PO DAILY [facility] Stop: 04/18/18 08:59 Last Admin: 02/18/18 08:19 Dose: 20 mg Levofloxacin (Levaquin Pb) 250 mg in 50 mls @ 50 mls/hr IV Q24HR [facility] Stop: 04/18/18 15:44 Last Infusion: 02/17/18 18:00 Dose: Infused Ipratropium [place] (Atrovent Neb 0.5mg/2.5ml) 0.5 mg HHN Q6HRT [facility] Stop: 03/31/18 12:59 Last Admin: 02/17/18 19:17 Dose: Not Given Lactobacillus Rhamnosus (Culturelle 15b) 1 each PO DAILY [facility]AN[facility] Stop: 04/15/18 08:59 Last Admin: 02/18/18 08:20 Dose: Not Given Megestrol Acetate (Megace) 400 mg PO DAILY AMANDA PRN Reason: Protocol Stop: 03/31/18 08:59 Last Admin: 02/18/18 08:20 Dose: Not Given Midodrine (Proamatine) 10 mg PO TID [facility] Stop: 04/16/18 00:29 Last Admin: 02/18/18 08:19 Dose: 10 mg Miscellaneous (Clinical Monitoring) 1 ea MC DAILY PRN PRN Reason: RENAL Stop: 04/08/18 08:30 Miscellaneous (Probiotic Screen) 1 ea MC PRN PRN PRN Reason: PROTOCOL Stop: 04/14/18 09:44 Morphine Sulfate (Morphine) 1 mg IVP Q4HR PRN PRN Reason: Pain (Severe) Stop: 03/30/18 23:17 Last Admin: 02/10/18 21:11 Dose: 1 mg Sevelamer Carbonate (Renvela) 800 mg PO TID [facility] Stop: 03/30/18 23:14 Last Admin: 02/18/18 08:19 Dose: 800 mg Vitamin B Complex/Vit C/Folic Acid (Vitamin B Complex W/Vitamin C) 1 tab PO DAILY [facility] Stop: 03/31/18 08:59 Last Admin: 02/18/18 08:19 Dose: 1 tab General: Alert, Oriented x3, Cooperative, No acute distress HEENT: Atraumatic, PERRLA, EOMI, Mucous membr. moist/pink Neck: Supple, +2 carotid pulse wo bruit Cardiovascular: Regular rate, Normal S1, Normal S2 Lungs: Other (increased BS right lung field, (+) chest tube) Abdomen: Bowel sounds, Soft Extremities: no Edema Neurological: Sensation intact Skin: no Rash Psych/Mental Status: Mood NL - Procedures Procedures: Procedures Procedure Code Date DRAINAGE OF R PLEURAL CAV WITH DRAIN DEV, PERC APPROACH [id number] 01/29/18 DRAINAGE OF RIGHT LOWER LUNG LOBE, ENDO, DIAGN [id number] 01/29/18 Assessment/Plan - Problem List Patient Problems: All Active Problems RIGHT FACIAL SWELLING AND PAIN (Acute) Nutritional Asmnt/Malnutr-PDOC - Dietary Evaluation Malnutrition Findings (Please click <Entered> for more info): Nutritional Asmnt/Malnutrition Start: 02/03/18 12: 10 Text: Status: Complete Freq: Document 02/03/18 12:10 MMULHERN (Rec: 02/03/18 12:31 [email or web address]- [email or web address]) Nutritional Asmnt/Malnutrition Patient General Information Nutritional Screening Moderate Risk Diagnosis Rt facuial cellulitis, rt pleural effusion Pertinent Medical Hx/Surgical Hx ESRD on dialysis x 7 years, COPD, hyperlipidemia, Type 2 diabetes Subjective Information Per H&P, patient was on peritoneal dialysis up to a few months ago when he was diagnosed with peritonitis ( now on HD TTS). Per nursing notes, pt refusing some medications. Diet education not appropriate at this time. Current Diet Order/ Nutrition Support 60 gm CCHO, 1200 ml fluid restriction Patient / S.O Not Indicated Pertinent Medications lipitor, Sensipar, colace, lasix, Epogen, Megacem abx, Renvela, Vitamin B complex with C Pertinent Labs ((02/02) Cr 4.5, Ca 8.5, albumin 24 Nutritional Hx/Data Height 1.68 m Height (Calculated Centimeters) 167.6 Current Weight (lbs) 79.379 kg Weight (Calculated Kilograms) 79.4 Weight (Calculated Grams) 22270.7 [place] Body Weight 142 % [place] Body Weight 123 Body Mass Index (BMI) 28.2 Recent Weight Change No Weight Status Overweight GI Symptoms GI Symptoms None Last BM 02/02 x 1 Difficult in: None Food Allergies No Cultural/Ethnic/Yarsanism Belief none indicated Usual diet at home unknown Skin Integrity/Comment: Ba 15, cellulitis facial Current %PO Good (75-100%) Estimated Nutritional Goals BEE in Kcals: Adj wt of IBW Calories/Kcals/Kg 27-32 kcal/kg using 68.2 kg Adj wt Kcals Calculated 9491-1170 kcal/day Protein: Adj wt of IBW Protein g/k.2-1.5 gm/kg (HD) Protein Calculated 80-100 gm/day Fluid: ml Per MD due to HD Nutritional Problem 1. Problem Problem Increased nutrient needs related to Etiology impaired skin integrity/ dialysis aeb Signs/Symptoms: Facial cellulitis and on HD Intervention/Recommendation Comments Consider modifying diet to 2gm sodium. Glucose/HG1AC low, no need for Diabetic restriction . Continue to monitor K and Phosphorus levels and need for Renal diet (not needed at this time.) Consider Prosource with meals for added protein due to cellulitis and HD. Expected Outcomes/Goals Expected Outcomes/Goals oral intake to meet >75% of nutrient needs, nutritino related labs normalize, weight stable.
--- NOTE | 2018-02-18 14:17 | Infectious Disease Prog Note ---
Infectious Disease Subjective - Review of Systems Service Date: 02/18/18 Subjective: No new change, no fever. Infectious Disease Objective - Results Result Diagrams: 02/18/18 05:50 02/18/18 05:50 Recent Labs: Laboratory Last Values WBC 7.9 Th/cmm (4.8-10.8) 02/18/18 05:50 RBC 3.81 Mil/cmm (3.80-5.80) 02/18/18 05:50 Hgb 11.6 gm/dL (12-16) L 02/18/18 05:50 Hct 34.7 % (41.0-60) L 02/18/18 05:50 MCV 91.2 fl (80-99) 02/18/18 05:50 MCH 30.3 pg (27.0-31.0) 02/18/18 05:50 MCHC Differential 33.2 pg (28.0-36.0) 02/18/18 05:50 RDW 15.4 % (11.5-20.0) 02/18/18 05:50 Plt Count 297 Th/cmm (150-400) 02/18/18 05:50 MPV 7.0 fl 02/18/18 05:50 Neutrophils % 55.1 % (40.0-80.0) 02/18/18 05:50 Lymphocytes % 24.2 % (20.0-50.0) 02/18/18 05:50 Monocytes % 9.1 % (2.0-10.0) 02/18/18 05:50 Eosinophils % 10.0 % (0.0-5.0) H 02/18/18 05:50 Basophils % 1.6 % (0.0-2.0) 02/18/18 05:50 ESR 87 mm/hr (0-20) H 01/31/18 04:15 PT 9.9 SECONDS (9.5-11.5) 01/29/18 16:42 INR 0.95 (0.5-1.4) 01/29/18 16:42 PTT (Actin FS) 29.9 SECONDS (26.0-38.0) 01/29/18 16:42 Sodium 139 mEq/L (136-145) 02/18/18 05:50 Potassium 4.3 mEq/L (3.5-5.1) 02/18/18 05:50 Chloride 102 mEq/L (98-107) 02/18/18 05:50 Carbon Dioxide 33.2 mEq/L (21.0-31.0) H 02/18/18 05:50 Anion Gap 8.1 (7.0-16.0) 02/18/18 05:50 BUN 11 mg/dL (7-25) 02/18/18 05:50 Creatinine 3.8 mg/dL (0.7-1.3) H 02/18/18 05:50 Est GFR ( Amer) 20.7 ml/min (>90) 02/18/18 05:50 Est GFR (Non-Af Amer) 17.1 ml/min 02/18/18 05:50 BUN/Creatinine Ratio 2.9 02/18/18 05:50 Glucose 72 mg/dL (70-105) 02/18/18 05:50 POC Glucose 106 MG/DL (70 - 105) H 02/08/18 12:11 Hemoglobin A1c % 3.5 % (4.0-6.0) L 01/31/18 04:15 Whole Bld Lactic Acid 0.55 mmol/L (0.60-1.99) L 01/29/18 16:42 Calcium 9.1 mg/dL (8.6-10.3) 02/18/18 05:50 Phosphorus 4.1 mg/dL (2.5-5.0) 01/31/18 04:15 Magnesium 2.0 mg/dL (1.9-2.7) 02/17/18 05:49 Total Bilirubin 0.4 mg/dL (0.3-1.0) 02/18/18 05:50 AST 12 U/L (13-39) L 02/18/18 05:50 ALT 5 U/L (7-52) L 02/18/18 05:50 Alkaline Phosphatase 59 U/L (34-104) 02/18/18 05:50 Creatine Kinase 12 U/L (30-223) L 01/29/18 16:42 Troponin I 0.02 ng/mL (0.01-0.05) 01/29/18 16:42 C-Reactive Protein 11.4 mg/dL (0.0-0.9) H 01/31/18 04:15 Total Protein 6.0 gm/dL (6.0-8.3) 02/18/18 05:50 Albumin 2.8 gm/dL (4.2-5.5) L 02/18/18 05:50 Globulin 3.2 gm/dL 02/18/18 05:50 Albumin/Globulin Ratio 0.9 (1.0-1.8) L 02/18/18 05:50 Triglycerides 72 mg/dL (<150) 01/31/18 04:15 Cholesterol 97 mg/dL (<200) 01/31/18 04:15 LDL Cholesterol Direct 45 mg/dL (75-193) L 01/31/18 04:15 HDL Cholesterol 36 mg/dL (23-92) 01/31/18 04:15 TSH 2.15 uIU/ml (0.34-5.60) 01/31/18 04:15 PTH Intact 36 pg/mL (15-65) 02/01/18 05:22 Urine Source CLEAN C 02/17/18 16:59 Urine Color YELLOW 02/17/18 16:59 Urine Clarity HAZY (CLEAR) 02/17/18 16:59 Urine pH 8.5 (4.6 - 8.0) 02/17/18 16:59 Ur Specific [place] 1.020 (1.005-1.030) 02/17/18 16:59 Urine Protein >=300 mg/dL (NEGATIVE) 02/17/18 16:59 Urine Glucose (UA) 100 mg/dL (NEGATIVE) H 02/17/18 16:59 Urine Ketones NEGATIVE mg/dL (NEGATIVE) 02/17/18 16:59 Urine Blood LARGE (NEGATIVE) H 02/17/18 16:59 Urine Nitrate NEGATIVE (NEGATIVE) 02/17/18 16:59 Urine Bilirubin NEGATIVE (NEGATIVE) 02/17/18 16:59 Urine Urobilinogen 0.2 E.U./dL (0.2 - 1.0) 02/17/18 16:59 Ur Leukocyte Esterase SMALL (NEGATIVE) H 02/17/18 16:59 Urine RBC 25-50 /hpf (0-5) H 02/17/18 16:59 Urine WBC 6-10 /hpf (0-5) 02/17/18 16:59 Ur Epithelial Cells MODERATE /lpf (FEW) 02/17/18 16:59 Urine Bacteria FEW /hpf (NONE SEEN) 02/17/18 16:59 Fluid Source PLEURAL 02/01/18 11:00 Fluid Color PALE YELLOW 02/01/18 11:00 Fluid Appearance HAZY 02/01/18 11:00 Fluid WBC 149 /cumm 02/01/18 11:00 Fluid RBC 185 /cumm 02/01/18 11:00 Fluid Neutrophils 2 % 02/01/18 11:00 Fluid Lymphocytes 50 % 02/01/18 11:00 Fluid Monocytes 48 % 02/01/18 11:00 Fluid Glucose 75.0 mg/dL 02/01/18 11:00 Fluid Total Protein 2.3 g/dL 02/01/18 11:00 Fluid Amylase 61 U/L 02/01/18 11:00 Random Vancomycin 22.5 ug/mL (5.0-40.0) 02/04/18 05:52 - Physical Exam Vitals and I&O: Vital Signs Temp 97.1 F 02/18/18 11:44 Pulse 64 02/18/18 11:44 Resp 20 02/18/18 11:44 BP 121/76 02/18/18 11:44 Pulse Ox 100 02/18/18 11:44 Intake & Output 02/17/18 02/18/18 02/18/18 18:59 06:59 18:59 Intake Total 50 150 Output Total 20 Balance 50 130 Weight (lbs) 66.678 kg 66.678 kg Intake: Intake, IV Amount 50 Levofloxacin 250mg/50mL 50 250 mg In 50 ml @ 50 mls/ hr IV Q24HR [facility] Rx#: [id number] Oral 150 Output: Chest Tube Drainage 20 Right Lower Anterior 20 Chest Other: # Voids 0 2 # Bowel Movements 0 2 Weight Source Bedscale Bedscale Active Medications: Current Medications Acetaminophen (Tylenol) 650 mg PO Q6HR PRN PRN Reason: PAIN Stop: 03/30/18 23:07 Acetaminophen/Hydrocodone Bitart ([place] 5mg/325mg) 2 tab PO Q4H PRN PRN Reason: Pain (Moderate) Stop: 03/30/18 23:16 Last Admin: 02/17/18 21:03 Dose: 2 tab Al Hydrox/Mg Hydrox/Simethicone (Maalox) 30 ml PO Q4H PRN PRN Reason: Heartburn Stop: 04/17/18 22:02 Last Admin: 02/16/18 22:29 Dose: 30 ml Albuterol Sulfate (Albuterol 2.5mg/3ml Neb Ud) 2.5 mg HHN Q1H PRN PRN Reason: Respiratory Distress Stop: 03/31/18 07:59 Last Admin: 02/01/18 15:33 Dose: 2.5 mg Albuterol/Ipratropium (Duoneb Neb) 3 ml HHN Q4HRT [facility] Stop: 03/31/18 14:59 Last Admin: 02/18/18 11:15 Dose: 3 ml Atorvastatin Calcium (Lipitor) 40 mg PO HS [facility] Stop: 03/31/18 20:59 Last Admin: 02/17/18 21:02 Dose: 40 mg Cinacalcet (Sensipar) 30 mg PO DAILY [facility] Stop: 03/31/18 08:59 Last Admin: 02/18/18 08:19 Dose: Not Given Diclofenac Sodium (Voltaren) 50 mg PO BID [facility] Stop: 04/01/18 08:59 Last Admin: 02/18/18 08:19 Dose: 50 mg Docusate Sodium (Colace) 100 mg PO DAILY [facility] Stop: 03/31/18 08:59 Last Admin: 02/18/18 08:19 Dose: 100 mg Famotidine (Pepcid) 20 mg PO DAILY [facility] Stop: 04/18/18 08:59 Last Admin: 02/18/18 08:19 Dose: 20 mg Levofloxacin (Levaquin Pb) 250 mg in 50 mls @ 50 mls/hr IV Q24HR [facility] Stop: 04/18/18 15:44 Last Infusion: 02/17/18 18:00 Dose: Infused Ipratropium [place] (Atrovent Neb 0.5mg/2.5ml) 0.5 mg HHN Q6HRT [facility] Stop: 03/31/18 12:59 Last Admin: 02/17/18 19:17 Dose: Not Given Lactobacillus Rhamnosus (Culturelle 15b) 1 each PO DAILY [facility] Stop: 04/15/18 08:59 Last Admin: 02/18/18 08:20 Dose: Not Given Megestrol Acetate (Megace) 400 mg PO DAILY AMANDA PRN Reason: Protocol Stop: 03/31/18 08:59 Last Admin: 05/27/18 08:20 Dose: Not Given Midodrine (Proamatine) 10 mg PO TID [facility] Stop: 04/16/18 00:29 Last Admin: 02/18/18 08:19 Dose: 10 mg Miscellaneous (Clinical Monitoring) 1 ea MC DAILY PRN PRN Reason: RENAL Stop: 04/08/18 08:30 Miscellaneous (Probiotic Screen) 1 ea MC PRN PRN PRN Reason: PROTOCOL Stop: 04/14/18 09:44 Morphine Sulfate (Morphine) 1 mg IVP Q4HR PRN PRN Reason: Pain (Severe) Stop: 03/30/18 23:17 Last Admin: 02/10/18 21:11 Dose: 1 mg Sevelamer Carbonate (Renvela) 800 mg PO TID [facility] Stop: 03/30/18 23:14 Last Admin: 02/18/18 08:19 Dose: 800 mg Vitamin B Complex/Vit C/Folic Acid (Vitamin B Complex W/Vitamin C) 1 tab PO DAILY [facility] Stop: 03/31/18 08:59 Last Admin: 02/18/18 08:19 Dose: 1 tab General: no acute distress, well developed, well nourished HEENT: atraumatic, normocephalic, PERRLA Neck: supple, no thyromegaly Cardiovascular: S1S2, regular, other (right sublacvian catheter.) Lungs: clear to percussion, rhonchi (on right), other ( Chest tube on right. decreased breath sounds.) Abdomen: soft, no tender, no distended Extremities: no cyanosis, no clubbing, no edema Neurological: awake, alert, oriented Skin: intact - Procedures Procedures: Procedures Procedure Code Date DRAINAGE OF R PLEURAL CAV WITH DRAIN DEV, PERC APPROACH [id number] 01/29/18 DRAINAGE OF RIGHT LOWER LUNG LOBE, ENDO, DIAGN [id number] 01/29/18 Infectious Disease Assmt/Plan - Problem List Patient Problems: All Active Problems RIGHT FACIAL SWELLING AND PAIN (Acute) - Assessment Assessment: 1. Pleural effusion with lymphocyte predominance. Empyema culture growing Pseudomonas. It is not clear whether it is from the bronchoalveolar lavage are from the pleural fluid. The differential includes fungal pneumonia and may have malignant pleural effusion, may have tuberculous empyema. 2. Pseudomonas pneumonia. 3. Chronic kidney disease stage 5, on hemodialysis. 4. Diabetes mellitus type 2. 5. Chronic obstructive pulmonary disease. 6. Hyperlipidemia. 7. Urinary tract infection, treated. 8. Hyperlipidemia. - Plan Plan: Continue the same treatment. Nutritional Asmnt/Malnutr-PDOC - Dietary Evaluation Malnutrition Findings (Please click <Entered> for more info): Nutritional Asmnt/Malnutrition Start: 02/03/18 12: 10 Text: Status: Complete Freq: Document 02/03/18 12:10 RICO (Rec: 02/03/18 12:31 [email or web address]- [email or web address]) Nutritional Asmnt/Malnutrition Patient General Information Nutritional Screening Moderate Risk Diagnosis Rt facuial cellulitis, rt pleural effusion Pertinent Medical Hx/Surgical Hx ESRD on dialysis x 7 years, COPD, hyperlipidemia, Type 2 diabetes Subjective Information Per H&P, patient was on peritoneal dialysis up to a few months ago when he was diagnosed with peritonitis ( now on HD TTS). Per nursing notes, pt refusing some medications. Diet education not appropriate at this time. Current Diet Order/ Nutrition Support 60 gm CCHO, 1200 ml fluid restriction Patient / S.O Not Indicated Pertinent Medications lipitor, Sensipar, colace, lasix, Epogen, Megacem abx, Renvela, Vitamin B complex with C Pertinent Labs ((02/02) Cr 4.5, Ca 8.5, albumin 24 Nutritional Hx/Data Height 1.68 m Height (Calculated Centimeters) 167.6 Current Weight (lbs) 79.379 kg Weight (Calculated Kilograms) 79.4 Weight (Calculated Grams) 73236.7 [place] Body Weight 142 % [place] Body Weight 123 Body Mass Index (BMI) 28.2 Recent Weight Change No Weight Status Overweight GI Symptoms GI Symptoms None Last BM 02/02 x 1 Difficult in: None Food Allergies No Cultural/Ethnic/Yazidi Belief none indicated Usual diet at home unknown Skin Integrity/Comment: Ba 15, cellulitis facial Current %PO Good (75-100%) Estimated Nutritional Goals BEE in Kcals: Adj wt of IBW Calories/Kcals/Kg 27-32 kcal/kg using 68.2 kg Adj wt Kcals Calculated 2529-9286 kcal/day Protein: Adj wt of IBW Protein g/k.2-1.5 gm/kg (HD) Protein Calculated 80-100 gm/day Fluid: ml Per MD due to HD Nutritional Problem 1. Problem Problem Increased nutrient needs related to Etiology impaired skin integrity/ dialysis aeb Signs/Symptoms: Facial cellulitis and on HD Intervention/Recommendation Comments Consider modifying diet to 2gm sodium. Glucose/HG1AC low, no need for Diabetic restriction . Continue to monitor K and Phosphorus levels and need for Renal diet (not needed at this time.) Consider Prosource with meals for added protein due to cellulitis and HD. Expected Outcomes/Goals Expected Outcomes/Goals oral intake to meet >75% of nutrient needs, nutritino related labs normalize, weight stable.
[2018-02-18] MEDS: Ipratropium Neb 0.5 mg/2.5 mL UD HHN SCH (15:11)
[2018-02-18] MEDS: Hydrocodone/APAP 5mg/325mg Tab PO PRN (22:42)
[2018-02-19] MEDS: Albuterol/Ipratropium Neb 3 ML AERS HHN SCH ×6 (02:56→23:09)
[2018-02-19 06:08] LABS: % BASOPHILS 1.4 % (0.0-2.0); % EOSINOPHILS 9.5 % (0.0-5.0); % MONOCYTES 10.1 % (2.0-10.0); BASOPHILE ABSOLUTE 0.1 Th/cumm (0-0.2); EOSINOPHILE ABSOLUTE 0.9 Th/cmm (0.1-0.4); HEMATOCRIT 32.9 % (41.0-60); HEMOGLOBIN 10.9 gm/dL (12-16); LYMPHOCYTE ABSOLUTE 2.1 Th/cmm (1.5-3.0); MEAN CELL VOLUME 91.3 fl (80-99); MEAN CORPUSCULAR HEMOGLOBIN 30.3 pg (27.0-31.0); MEAN CORPUSCULAR HGB CONC 33.2 pg (28.0-36.0); MEAN PLATELET VOLUME 6.9 fl; MONOCYTE ABSOLUTE 0.9 Th/cmm (0.3-1.0); NEUTROPHILE ABSOLUTE 5.1 Th/cmm (1.8-8.0); PLATELET COUNT 282 Th/cmm (150-400); WHITE BLOOD COUNT 9.1 Th/cmm (4.8-10.8)
[2018-02-19 06:19] LABS: ALB/GLOB RATIO 0.9 (1.0-1.8); ALBUMIN 2.7 gm/dL (4.2-5.5); ANION GAP 8.3 (7.0-16.0); BILIRUBIN,TOTAL 0.3 mg/dL (0.3-1.0); CALCIUM SERUM 9.2 mg/dL (8.6-10.3); GFR AFRICAN-AMERICAN 13.2 ml/min (>90); GFR NON AFRICAN-AMERICAN 10.9 ml/min; POTASSIUM SERUM 4.3 mEq/L (3.5-5.1); TOTAL PROTEIN,SERUM 5.8 gm/dL (6.0-8.3)
[2018-02-19 06:23] LABS: CREATININE - SERUM 5.6 mg/dL (0.7-1.3)
[2018-02-19] MEDS: Vitamin B Complex w/Vitamin C Tab PO SCH (08:32)
[2018-02-19] MEDS: Lactobacillus Rhamnosus GG 15 Billion CFU CAP.SPRINK PO SCH (08:33)
--- NOTE | 2018-02-19 10:55 | General Progress Note ---
Subjective - Review of Systems Service Date: 02/19/18 Events since last encounter: 52 CC SEROUS DRAINAGE FROM CHEST TUBE CLINICALLY OK Objective - Results Result Diagrams: 02/19/18 05:27 02/19/18 05:27 Recent Labs: Laboratory Last Values WBC 9.1 Th/cmm (4.8-10.8) 02/19/18 05:27 RBC 3.60 Mil/cmm (3.80-5.80) L 02/19/18 05:27 Hgb 10.9 gm/dL (12-16) L 02/19/18 05:27 Hct 32.9 % (41.0-60) L 02/19/18 05:27 MCV 91.3 fl (80-99) 02/19/18 05:27 MCH 30.3 pg (27.0-31.0) 02/19/18 05:27 MCHC Differential 33.2 pg (28.0-36.0) 02/19/18 05:27 RDW 16.0 % (11.5-20.0) 02/19/18 05:27 Plt Count 282 Th/cmm (150-400) 02/19/18 05:27 MPV 6.9 fl 02/19/18 05:27 Neutrophils % 56.0 % (40.0-80.0) 02/19/18 05:27 Lymphocytes % 23.0 % (20.0-50.0) 02/19/18 05:27 Monocytes % 10.1 % (2.0-10.0) H 02/19/18 05:27 Eosinophils % 9.5 % (0.0-5.0) H 02/19/18 05:27 Basophils % 1.4 % (0.0-2.0) 02/19/18 05:27 ESR 87 mm/hr (0-20) H 01/31/18 04:15 PT 9.9 SECONDS (9.5-11.5) 01/29/18 16:42 INR 0.95 (0.5-1.4) 01/29/18 16:42 PTT (Actin FS) 29.9 SECONDS (26.0-38.0) 01/29/18 16:42 Sodium 139 mEq/L (136-145) 02/19/18 05:27 Potassium 4.3 mEq/L (3.5-5.1) 02/19/18 05:27 Chloride 103 mEq/L (98-107) 02/19/18 05:27 Carbon Dioxide 32.0 mEq/L (21.0-31.0) H 02/19/18 05:27 Anion Gap 8.3 (7.0-16.0) 02/19/18 05:27 BUN 20 mg/dL (7-25) 02/19/18 05:27 Creatinine 5.6 mg/dL (0.7-1.3) H* 02/19/18 05:27 Est GFR ( Amer) 13.2 ml/min (>90) 02/19/18 05:27 Est GFR (Non-Af Amer) 10.9 ml/min 02/19/18 05:27 BUN/Creatinine Ratio 3.6 02/19/18 05:27 Glucose 81 mg/dL (70-105) 02/19/18 05:27 POC Glucose 106 MG/DL (70 - 105) H 02/08/18 12:11 Hemoglobin A1c % 3.5 % (4.0-6.0) L 01/31/18 04:15 Whole Bld Lactic Acid 0.55 mmol/L (0.60-1.99) L 01/29/18 16:42 Calcium 9.2 mg/dL (8.6-10.3) 02/19/18 05:27 Phosphorus 4.1 mg/dL (2.5-5.0) 01/31/18 04:15 Magnesium 2.0 mg/dL (1.9-2.7) 02/17/18 05:49 Total Bilirubin 0.3 mg/dL (0.3-1.0) 02/19/18 05:27 AST 11 U/L (13-39) L 02/19/18 05:27 ALT 6 U/L (7-52) L 02/19/18 05:27 Alkaline Phosphatase 61 U/L (34-104) 02/19/18 05:27 Creatine Kinase 12 U/L (30-223) L 01/29/18 16:42 Troponin I 0.02 ng/mL (0.01-0.05) 01/29/18 16:42 C-Reactive Protein 11.4 mg/dL (0.0-0.9) H 01/31/18 04:15 Total Protein 5.8 gm/dL (6.0-8.3) L 02/19/18 05:27 Albumin 2.7 gm/dL (4.2-5.5) L 02/19/18 05:27 Globulin 3.1 gm/dL 02/19/18 05:27 Albumin/Globulin Ratio 0.9 (1.0-1.8) L 02/19/18 05:27 Triglycerides 72 mg/dL (<150) 01/31/18 04:15 Cholesterol 97 mg/dL (<200) 01/31/18 04:15 LDL Cholesterol Direct 45 mg/dL (75-193) L 01/31/18 04:15 HDL Cholesterol 36 mg/dL (23-92) 01/31/18 04:15 TSH 2.15 uIU/ml (0.34-5.60) 01/31/18 04:15 PTH Intact 36 pg/mL (15-65) 02/01/18 05:22 Urine Source CLEAN C 02/17/18 16:59 Urine Color YELLOW 02/17/18 16:59 Urine Clarity HAZY (CLEAR) 02/17/18 16:59 Urine pH 8.5 (4.6 - 8.0) 02/17/18 16:59 Ur Specific [place] 1.020 (1.005-1.030) 02/17/18 16:59 Urine Protein >=300 mg/dL (NEGATIVE) 02/17/18 16:59 Urine Glucose (UA) 100 mg/dL (NEGATIVE) H 02/17/18 16:59 Urine Ketones NEGATIVE mg/dL (NEGATIVE) 02/17/18 16:59 Urine Blood LARGE (NEGATIVE) H 02/17/18 16:59 Urine Nitrate NEGATIVE (NEGATIVE) 02/17/18 16:59 Urine Bilirubin NEGATIVE (NEGATIVE) 02/17/18 16:59 Urine Urobilinogen 0.2 E.U./dL (0.2 - 1.0) 02/17/18 16:59 Ur Leukocyte Esterase SMALL (NEGATIVE) H 02/17/18 16:59 Urine RBC 25-50 /hpf (0-5) H 02/17/18 16:59 Urine WBC 6-10 /hpf (0-5) 02/17/18 16:59 Ur Epithelial Cells MODERATE /lpf (FEW) 02/17/18 16:59 Urine Bacteria FEW /hpf (NONE SEEN) 02/17/18 16:59 Fluid Source PLEURAL 02/01/18 11:00 Fluid Color PALE YELLOW 02/01/18 11:00 Fluid Appearance HAZY 02/01/18 11:00 Fluid WBC 149 /cumm 02/01/18 11:00 Fluid RBC 185 /cumm 02/01/18 11:00 Fluid Neutrophils 2 % 02/01/18 11:00 Fluid Lymphocytes 50 % 02/01/18 11:00 Fluid Monocytes 48 % 02/01/18 11:00 Fluid Glucose 75.0 mg/dL 02/01/18 11:00 Fluid Total Protein 2.3 g/dL 02/01/18 11:00 Fluid Amylase 61 U/L 02/01/18 11:00 Random Vancomycin 22.5 ug/mL (5.0-40.0) 02/04/18 05:52 - Physical Exam Vitals and I&O: Vital Signs Temp 96.5 F 02/19/18 07:56 Pulse 57 02/19/18 07:56 Resp 18 02/19/18 07:56 BP 145/74 02/19/18 07:56 Pulse Ox 99 02/19/18 07:56 Intake & Output 02/18/18 02/19/18 02/19/18 18:59 06:59 18:59 Intake Total 350 200 Output Total 575 360 Balance -225 -160 Weight (lbs) 66.678 kg 69.49 kg Intake: Oral 350 200 Output: Chest Tube Drainage 125 360 Right Lower Anterior 125 360 Chest Urine 450 Other: # Voids 2 # Bowel Movements 1 0 Weight Source Bedscale Bedscale Active Medications: Current Medications Acetaminophen (Tylenol) 650 mg PO Q6HR PRN PRN Reason: PAIN Stop: 03/30/18 23:07 Acetaminophen/Hydrocodone Bitart ([place] 5mg/325mg) 2 tab PO Q4H PRN PRN Reason: Pain (Moderate) Stop: 03/30/18 23:16 Last Admin: 02/18/18 22:42 Dose: 2 tab Al Hydrox/Mg Hydrox/Simethicone (Maalox) 30 ml PO Q4H PRN PRN Reason: Heartburn Stop: 04/17/18 22:02 Last Admin: 02/16/18 22:29 Dose: 30 ml Albuterol Sulfate (Albuterol 2.5mg/3ml Neb Ud) 2.5 mg HHN Q1H PRN PRN Reason: Respiratory Distress Stop: 03/31/18 07:59 Last Admin: 02/01/18 15:33 Dose: 2.5 mg Albuterol/Ipratropium (Duoneb Neb) 3 ml HHN Q4HRT [facility] Stop: 03/31/18 14:59 Last Admin: 02/19/18 07:50 Dose: Not Given Atorvastatin Calcium (Lipitor) 40 mg PO HS [facility] Stop: 03/31/18 20:59 Last Admin: 02/18/18 20:56 Dose: 40 mg Cinacalcet (Sensipar) 30 mg PO DAILY [facility] Stop: 03/31/18 08:59 Last Admin: 02/19/18 08:33 Dose: Not Given Diclofenac Sodium (Voltaren) 50 mg PO BID [facility] Stop: 04/01/18 08:59 Last Admin: 02/19/18 08:31 Dose: 50 mg Docusate Sodium (Colace) 100 mg PO DAILY [facility] Stop: 03/31/18 08:59 Last Admin: 02/19/18 08:32 Dose: 100 mg Famotidine (Pepcid) 20 mg PO DAILY [facility] Stop: 04/18/18 08:59 Last Admin: 02/19/18 08:32 Dose: 20 mg Ipratropium [place] (Atrovent Neb 0.5mg/2.5ml) 0.5 mg HHN Q6HRT [facility] Stop: 03/31/18 12:59 Last Admin: 02/18/18 15:11 Dose: 0.5 mg Lactobacillus Rhamnosus (Culturelle 15b) 1 each PO DAILY [facility] Stop: 04/15/18 08:59 Last Admin: 02/19/18 08:33 Dose: Not Given Levofloxacin (Levaquin) 250 mg PO DAILY [facility] Stop: 04/19/18 16:59 Last Admin: 02/19/18 08:32 Dose: 250 mg Megestrol Acetate (Megace) 400 mg PO DAILY [facility] PRN Reason: Protocol Stop: 03/31/18 08:59 Last Admin: 02/19/18 08:33 Dose: Not Given Midodrine (Proamatine) 10 mg PO TID [facility] Stop: 04/16/18 00:29 Last Admin: 02/19/18 08:32 Dose: 10 mg Miscellaneous (Clinical Monitoring) 1 ea MC DAILY PRN PRN Reason: RENAL Stop: 04/08/18 08:30 Miscellaneous (Probiotic Screen) 1 ea MC PRN PRN PRN Reason: PROTOCOL Stop: 04/14/18 09:44 Morphine Sulfate (Morphine) 1 mg IVP Q4HR PRN PRN Reason: Pain (Severe) Stop: 03/30/18 23:17 Last Admin: 02/10/18 21:11 Dose: 1 mg Sevelamer Carbonate (Renvela) 800 mg PO TID [facility] Stop: 03/30/18 23:14 Last Admin: 02/19/18 08:32 Dose: 800 mg Vitamin B Complex/Vit C/Folic Acid (Vitamin B Complex W/Vitamin C) 1 tab PO DAILY [facility] Stop: 03/31/18 08:59 Last Admin: 02/19/18 08:32 Dose: 1 tab General: Alert, Oriented x3, Cooperative, No acute distress HEENT: Atraumatic, PERRLA, EOMI, Mucous membr. moist/pink Neck: Supple, +2 carotid pulse wo bruit Cardiovascular: Regular rate, Normal S1, Normal S2 Lungs: Other (increased BS right lung field, (+) chest tube) Abdomen: Bowel sounds, Soft Extremities: no Edema Neurological: Sensation intact Skin: no Rash Psych/Mental Status: Mood NL - Procedures Procedures: Procedures Procedure Code Date DRAINAGE OF R PLEURAL CAV WITH DRAIN DEV, PERC APPROACH [id number] 01/29/18 DRAINAGE OF RIGHT LOWER LUNG LOBE, ENDO, DIAGN [id number] 01/29/18 Assessment/Plan - Problem List Patient Problems: All Active Problems RIGHT FACIAL SWELLING AND PAIN (Acute) Nutritional Asmnt/Malnutr-PDOC - Dietary Evaluation Malnutrition Findings (Please click <Entered> for more info): Nutritional Asmnt/Malnutrition Start: 02/03/18 12: 10 Text: Status: Complete Freq: Document 02/03/18 12:10 MMULHERN (Rec: 02/03/18 12:31 [email or web address] VALERIO- [email or web address]) Nutritional Asmnt/Malnutrition Patient General Information Nutritional Screening Moderate Risk Diagnosis Rt facuial cellulitis, rt pleural effusion Pertinent Medical Hx/Surgical Hx ESRD on dialysis x 7 years, COPD, hyperlipidemia, Type 2 diabetes Subjective Information Per H&P, patient was on peritoneal dialysis up to a few months ago when he was diagnosed with peritonitis ( now on HD TTS). Per nursing notes, pt refusing some medications. Diet education not appropriate at this time. Current Diet Order/ Nutrition Support 60 gm CCHO, 1200 ml fluid restriction Patient / S.O Not Indicated Pertinent Medications lipitor, Sensipar, colace, lasix, Epogen, Meg[place]em abx, Renvela, Vitamin B complex with C Pertinent Labs ((02/02) Cr 4.5, Ca 8.5, albumin 24 Nutritional Hx/Data Height 1.68 m Height (Calculated Centimeters) 167.6 Current Weight (lbs) 79.379 kg Weight (Calculated Kilograms) 79.4 Weight (Calculated Grams) 30170.7 [place] Body Weight 142 % [place] Body Weight 123 Body Mass Index (BMI) 28.2 Recent Weight Change No Weight Status Overweight GI Symptoms GI Symptoms None Last BM 02/02 x 1 Difficult in: None Food Allergies No Cultural/Ethnic/L[employer]-Day Belief none indicated Usual diet at home unknown Skin Integrity/Comment: Ba 15, cellulitis facial Current %PO Good (75-100%) Estimated Nutritional Goals BEE in Kcals: Adj wt of IBW Calories/Kcals/Kg 27-32 kcal/kg using 68.2 kg Adj wt Kcals Calculated 4989-2936 kcal/day Protein: Adj wt of IBW Protein g/k.2-1.5 gm/kg (HD) Protein Calculated 80-100 gm/day Fluid: ml Per MD due to HD Nutritional Problem 1. Problem Problem Increased nutrient needs related to Etiology impaired skin integrity/ dialysis aeb Signs/Symptoms: Facial cellulitis and on HD Intervention/Recommendation Comments Consider modifying diet to 2gm sodium. Glucose/HG1AC low, no need for Diabetic restriction . Continue to monitor K and Phosphorus levels and need for Renal diet (not needed at this time.) Consider Prosource with meals for added protein due to cellulitis and HD. Expected Outcomes/Goals Expected Outcomes/Goals oral intake to meet >75% of nutrient needs, nutritino related labs normalize, weight stable.
--- NOTE | 2018-02-19 12:48 | General Progress Note ---
Subjective - Review of Systems Service Date: 02/19/18 Subjective: more alert, verbal, comfortable Objective - Results Result Diagrams: 02/19/18 05:27 02/19/18 05:27 Recent Labs: Laboratory Last Values WBC 9.1 Th/cmm (4.8-10.8) 02/19/18 05:27 RBC 3.60 Mil/cmm (3.80-5.80) L 02/19/18 05:27 Hgb 10.9 gm/dL (12-16) L 02/19/18 05:27 Hct 32.9 % (41.0-60) L 02/19/18 05:27 MCV 91.3 fl (80-99) 02/19/18 05:27 MCH 30.3 pg (27.0-31.0) 02/19/18 05:27 MCHC Differential 33.2 pg (28.0-36.0) 02/19/18 05:27 RDW 16.0 % (11.5-20.0) 02/19/18 05:27 Plt Count 282 Th/cmm (150-400) 02/19/18 05:27 MPV 6.9 fl 02/19/18 05:27 Neutrophils % 56.0 % (40.0-80.0) 02/19/18 05:27 Lymphocytes % 23.0 % (20.0-50.0) 02/19/18 05:27 Monocytes % 10.1 % (2.0-10.0) H 02/19/18 05:27 Eosinophils % 9.5 % (0.0-5.0) H 02/19/18 05:27 Basophils % 1.4 % (0.0-2.0) 02/19/18 05:27 ESR 87 mm/hr (0-20) H 01/31/18 04:15 PT 9.9 SECONDS (9.5-11.5) 01/29/18 16:42 INR 0.95 (0.5-1.4) 01/29/18 16:42 PTT (Actin FS) 29.9 SECONDS (26.0-38.0) 01/29/18 16:42 Sodium 139 mEq/L (136-145) 02/19/18 05:27 Potassium 4.3 mEq/L (3.5-5.1) 02/19/18 05:27 Chloride 103 mEq/L (98-107) 02/19/18 05:27 Carbon Dioxide 32.0 mEq/L (21.0-31.0) H 02/19/18 05:27 Anion Gap 8.3 (7.0-16.0) 02/19/18 05:27 BUN 20 mg/dL (7-25) 02/19/18 05:27 Creatinine 5.6 mg/dL (0.7-1.3) H* 02/19/18 05:27 Est GFR ( Amer) 13.2 ml/min (>90) 02/19/18 05:27 Est GFR (Non-Af Amer) 10.9 ml/min 02/19/18 05:27 BUN/Creatinine Ratio 3.6 02/19/18 05:27 Glucose 81 mg/dL (70-105) 02/19/18 05:27 POC Glucose 106 MG/DL (70 - 105) H 02/08/18 12:11 Hemoglobin A1c % 3.5 % (4.0-6.0) L 01/31/18 04:15 Whole Bld Lactic Acid 0.55 mmol/L (0.60-1.99) L 01/29/18 16:42 Calcium 9.2 mg/dL (8.6-10.3) 02/19/18 05:27 Phosphorus 4.1 mg/dL (2.5-5.0) 01/31/18 04:15 Magnesium 2.0 mg/dL (1.9-2.7) 02/17/18 05:49 Total Bilirubin 0.3 mg/dL (0.3-1.0) 02/19/18 05:27 AST 11 U/L (13-39) L 02/19/18 05:27 ALT 6 U/L (7-52) L 02/19/18 05:27 Alkaline Phosphatase 61 U/L (34-104) 02/19/18 05:27 Creatine Kinase 12 U/L (30-223) L 01/29/18 16:42 Troponin I 0.02 ng/mL (0.01-0.05) 01/29/18 16:42 C-Reactive Protein 11.4 mg/dL (0.0-0.9) H 01/31/18 04:15 Total Protein 5.8 gm/dL (6.0-8.3) L 02/19/18 05:27 Albumin 2.7 gm/dL (4.2-5.5) L 02/19/18 05:27 Globulin 3.1 gm/dL 02/19/18 05:27 Albumin/Globulin Ratio 0.9 (1.0-1.8) L 02/19/18 05:27 Triglycerides 72 mg/dL (<150) 01/31/18 04:15 Cholesterol 97 mg/dL (<200) 01/31/18 04:15 LDL Cholesterol Direct 45 mg/dL (75-193) L 01/31/18 04:15 HDL Cholesterol 36 mg/dL (23-92) 01/31/18 04:15 TSH 2.15 uIU/ml (0.34-5.60) 01/31/18 04:15 PTH Intact 36 pg/mL (15-65) 02/01/18 05:22 Urine Source CLEAN C 02/17/18 16:59 Urine Color YELLOW 02/17/18 16:59 Urine Clarity HAZY (CLEAR) 02/17/18 16:59 Urine pH 8.5 (4.6 - 8.0) 02/17/18 16:59 Ur Specific [place] 1.020 (1.005-1.030) 02/17/18 16:59 Urine Protein >=300 mg/dL (NEGATIVE) 02/17/18 16:59 Urine Glucose (UA) 100 mg/dL (NEGATIVE) H 02/17/18 16:59 Urine Ketones NEGATIVE mg/dL (NEGATIVE) 02/17/18 16:59 Urine Blood LARGE (NEGATIVE) H 02/17/18 16:59 Urine Nitrate NEGATIVE (NEGATIVE) 02/17/18 16:59 Urine Bilirubin NEGATIVE (NEGATIVE) 02/17/18 16:59 Urine Urobilinogen 0.2 E.U./dL (0.2 - 1.0) 02/17/18 16:59 Ur Leukocyte Esterase SMALL (NEGATIVE) H 02/17/18 16:59 Urine RBC 25-50 /hpf (0-5) H 02/17/18 16:59 Urine WBC 6-10 /hpf (0-5) 02/17/18 16:59 Ur Epithelial Cells MODERATE /lpf (FEW) 02/17/18 16:59 Urine Bacteria FEW /hpf (NONE SEEN) 02/17/18 16:59 Fluid Source PLEURAL 02/01/18 11:00 Fluid Color PALE YELLOW 02/01/18 11:00 Fluid Appearance HAZY 02/01/18 11:00 Fluid WBC 149 /cumm 02/01/18 11:00 Fluid RBC 185 /cumm 02/01/18 11:00 Fluid Neutrophils 2 % 02/01/18 11:00 Fluid Lymphocytes 50 % 02/01/18 11:00 Fluid Monocytes 48 % 02/01/18 11:00 Fluid Glucose 75.0 mg/dL 02/01/18 11:00 Fluid Total Protein 2.3 g/dL 02/01/18 11:00 Fluid Amylase 61 U/L 02/01/18 11:00 Random Vancomycin 22.5 ug/mL (5.0-40.0) 02/04/18 05:52 - Physical Exam Vitals and I&O: Vital Signs Temp 97.1 F 02/19/18 12:00 Pulse 60 02/19/18 12:00 Resp 18 02/19/18 12:00 BP 140/70 02/19/18 12:00 Pulse Ox 99 02/19/18 12:00 Intake & Output 02/18/18 02/19/18 02/19/18 18:59 06:59 18:59 Intake Total 350 200 Output Total 575 360 Balance -225 -160 Weight (lbs) 66.678 kg 69.49 kg Intake: Oral 350 200 Output: Chest Tube Drainage 125 360 Right Lower Anterior 125 360 Chest Urine 450 Other: # Voids 2 # Bowel Movements 1 0 Weight Source Bedscale Bedscale Active Medications: Current Medications Acetaminophen (Tylenol) 650 mg PO Q6HR PRN PRN Reason: PAIN Stop: 03/30/18 23:07 Acetaminophen/Hydrocodone Bitart ([place] 5mg/325mg) 2 tab PO Q4H PRN PRN Reason: Pain (Moderate) Stop: 03/30/18 23:16 Last Admin: 02/18/18 22:42 Dose: 2 tab Al Hydrox/Mg Hydrox/Simethicone (Maalox) 30 ml PO Q4H PRN PRN Reason: Heartburn Stop: 04/17/18 22:02 Last Admin: 02/16/18 22:29 Dose: 30 ml Albuterol Sulfate (Albuterol 2.5mg/3ml Neb Ud) 2.5 mg HHN Q1H PRN PRN Reason: Respiratory Distress Stop: 03/31/18 07:59 Last Admin: 02/01/18 15:33 Dose: 2.5 mg Albuterol/Ipratropium (Duoneb Neb) 3 ml HHN Q4HRT [facility] Stop: 03/31/18 14:59 Last Admin: 02/19/18 11:30 Dose: 3 ml Atorvastatin Calcium (Lipitor) 40 mg PO HS [facility] Stop: 03/31/18 20:59 Last Admin: 02/18/18 20:56 Dose: 40 mg Cinacalcet (Sensipar) 30 mg PO DAILY [facility] Stop: 03/31/18 08:59 Last Admin: 02/19/18 08:33 Dose: Not Given Diclofenac Sodium (Voltaren) 50 mg PO BID [facility] Stop: 04/01/18 08:59 Last Admin: 02/19/18 08:31 Dose: 50 mg Docusate Sodium (Colace) 100 mg PO DAILY [facility] Stop: 03/31/18 08:59 Last Admin: 02/19/18 08:32 Dose: 100 mg Famotidine (Pepcid) 20 mg PO DAILY [facility] Stop: 04/18/18 08:59 Last Admin: 02/19/18 08:32 Dose: 20 mg Ipratropium [place] (Atrovent Neb 0.5mg/2.5ml) 0.5 mg HHN Q6HRT [facility] Stop: 03/31/18 12:59 Last Admin: 02/18/18 15:11 Dose: 0.5 mg Lactobacillus Rhamnosus (Culturelle 15b) 1 each PO DAILY [facility] Stop: 04/15/18 08:59 Last Admin: 02/19/18 08:33 Dose: Not Given Levofloxacin (Levaquin) 250 mg PO DAILY [facility] Stop: 04/19/18 16:59 Last Admin: 02/19/18 08:32 Dose: 250 mg Megestrol Acetate (Megace) 400 mg PO DAILY [facility] PRN Reason: Protocol Stop: 03/31/18 08:59 Last Admin: 02/19/18 08:33 Dose: Not Given Midodrine (Proamatine) 10 mg PO TID [facility] Stop: 04/16/18 00:29 Last Admin: 02/19/18 08:32 Dose: 10 mg Miscellaneous (Clinical Monitoring) 1 ea MC DAILY PRN PRN Reason: RENAL Stop: 04/08/18 08:30 Miscellaneous (Probiotic Screen) 1 ea MC PRN PRN PRN Reason: PROTOCOL Stop: 04/14/18 09:44 Morphine Sulfate (Morphine) 1 mg IVP Q4HR PRN PRN Reason: Pain (Severe) Stop: 03/30/18 23:17 Last Admin: 02/10/18 21:11 Dose: 1 mg Sevelamer Carbonate (Renvela) 800 mg PO TID [facility] Stop: 03/30/18 23:14 Last Admin: 02/19/18 08:32 Dose: 800 mg Vitamin B Complex/Vit C/Folic Acid (Vitamin B Complex W/Vitamin C) 1 tab PO DAILY [facility] Stop: 03/31/18 08:59 Last Admin: 02/19/18 08:32 Dose: 1 tab General: Alert, Oriented x3, Cooperative, No acute distress HEENT: Atraumatic, PERRLA, EOMI, Mucous membr. moist/pink Neck: Supple, +2 carotid pulse wo bruit Cardiovascular: Regular rate, Normal S1, Normal S2 Lungs: Other (increased BS right lung field, (+) chest tube) Abdomen: Bowel sounds, Soft Extremities: no Edema Neurological: Sensation intact Skin: no Rash Psych/Mental Status: Mood NL - Procedures Procedures: Procedures Procedure Code Date DRAINAGE OF R PLEURAL CAV WITH DRAIN DEV, PERC APPROACH [id number] 01/29/18 DRAINAGE OF RIGHT LOWER LUNG LOBE, ENDO, DIAGN [id number] 01/29/18 Assessment/Plan - Problem List Patient Problems: All Active Problems RIGHT FACIAL SWELLING AND PAIN (Acute) - Assessment Assessment: ESRD on HD Right facial cellulitis Right lung opacification 2/2 effusion Cx UTI T2DM Anemia of CKD right PTX s/p chest tube - Plan Plan: Lab - Result Diagrams 01/31/18 04:15 01/31/18 04:15 Current Medications Acetaminophen (Tylenol) 650 mg PO Q6HR PRN PRN Reason: PAIN Stop: 03/30/18 23:07 Acetaminophen/Hydrocodone Bitart ([place] 5mg/325mg) 2 tab PO Q4H PRN PRN Reason: Pain (Moderate) Stop: 03/30/18 23:16 Last Admin: 05/07/18 23:29 Dose: 2 tab Acetylcysteine (Mucomyst 20%) 2 ml HHN Q4HRT [facility] Stop: 03/31/18 14:59 Last Admin: 01/31/18 11:27 Dose: 2 ml Albuterol Sulfate (Albuterol 2.5mg/3ml Neb Ud) 2.5 mg HHN Q1H PRN PRN Reason: Respiratory Distress Stop: 03/31/18 07:59 Albuterol/Ipratropium (Duoneb Neb) 3 ml HHN Q4HRT [facility] Stop: 03/31/18 14:59 Last Admin: 01/31/18 11:27 Dose: 3 ml Atorvastatin Calcium (Lipitor) 40 mg PO HS [facility] Stop: 03/31/18 20:59 Last Admin: 01/30/18 21:19 Dose: 40 mg Cinacalcet (Sensipar) 30 mg PO DAILY [facility] Stop: 03/31/18 08:59 Last Admin: 01/31/18 08:28 Dose: Not Given Diclofenac Sodium (Voltaren) 50 mg PO BID [facility] Stop: 04/01/18 08:59 Last Admin: 01/31/18 08:25 Dose: 50 mg Docusate Sodium (Colace) 100 mg PO DAILY [facility] Stop: 03/31/18 08:59 Last Admin: 01/31/18 08:26 Dose: 100 mg Epoetin [place] (Epogen) 10,000 units SUBQ MWF@1600 [facility] Stop: 04/01/18 15:59 Furosemide (Lasix) 40 mg PO DAILY [facility] Stop: 03/31/18 08:59 Last Admin: 01/31/18 08:26 Dose: 40 mg Heparin Sodium (Porcine) (Heparin) 5,000 units IVP ONCE@2100 [facility] Stop: 01/31/18 21:01 Last Admin: 01/30/18 21:18 Dose: 5,000 units Ceftriaxone Sodium 1 gm/ (Sodium Chloride) 50 mls @ 100 mls/hr IV Q24HR [facility] Stop: 03/31/18 18:59 Last Infusion: 01/30/18 21:50 Dose: Infused Ipratropium [place] (Atrovent Neb 0.5mg/2.5ml) 0.5 mg HHN Q6HRT [facility] Stop: 03/31/18 12:59 Last Admin: 01/31/18 00:57 Dose: Not Given Lactobacillus Rhamnosus (Culturelle 15b) 1 each PO DAILY [facility] Stop: 03/30/18 23:14 Last Admin: 01/31/18 08:27 Dose: 1 each Megestrol Acetate (Megace) 400 mg PO DAILY [facility] PRN Reason: Protocol Stop: 03/31/18 08:59 Last Admin: 01/31/18 09:31 Dose: Not Given Metoprolol Tartrate (Lopressor) 50 mg PO BID [facility] Stop: 03/30/18 23:14 Last Admin: 01/31/18 08:27 Dose: 50 mg Midodrine (Proamatine) 5 mg PO TID PRN PRN Reason: HYPOTENSION Stop: 03/30/18 23:07 Miscellaneous (Vancomycin Iv Per Pharmacy) 1 ea MC PRN [facility] Stop: 03/30/18 21:44 Morphine Sulfate (Morphine) 1 mg IVP Q4HR PRN PRN Reason: Pain (Severe) Stop: 03/30/18 23:17 Last Admin: 01/31/18 08:17 Dose: 1 mg Sevelamer Carbonate (Renvela) 800 mg PO TID [facility] Stop: 03/30/18 23:14 Last Admin: 01/31/18 08:28 Dose: 800 mg Vitamin B Complex/Vit C/Folic Acid (Vitamin B Complex W/Vitamin C) 1 tab PO DAILY [facility] Stop: 03/31/18 08:59 Last Admin: 01/31/18 08:28 Dose: 1 t Lab - Result Diagrams 02/19/18 05:27 02/19/18 05:27 switched to Chest tube 50 ml overnite drain continue Rocephin WBC down to 9.1 bronchoscopy: no endobronchial lesion CXR: no PTX, decreased right lung volume/ PNA/effusion for HD in am Nutritional Asmnt/Malnutr-PDOC - Dietary Evaluation Malnutrition Findings (Please click <Entered> for more info): Nutritional Asmnt/Malnutrition Start: 02/03/18 12: 10 Text: Status: Complete Freq: Document 02/03/18 12:10 MMULHERN (Rec: 02/03/18 12:31 [id number] [id number]) Nutritional Asmnt/Malnutrition Patient General Information Nutritional Screening Moderate Risk Diagnosis Rt facuial cellulitis, rt pleural effusion Pertinent Medical Hx/Surgical Hx ESRD on dialysis x 7 years, COPD, hyperlipidemia, Type 2 diabetes Subjective Information Per H&P, patient was on peritoneal dialysis up to a few months ago when he was diagnosed with peritonitis ( now on HD TTS). Per nursing notes, pt refusing some medications. Diet education not appropriate at this time. Current Diet Order/ Nutrition Support 60 gm CCHO, 1200 ml fluid restriction Patient / S.O Not Indicated Pertinent Medications lipitor, Sensipar, colace, lasix, Epogen, Megacem abx, Renvela, Vitamin B complex with C Pertinent Labs ((02/02) Cr 4.5, Ca 8.5, albumin 24 Nutritional Hx/Data Height 1.68 m Height (Calculated Centimeters) 167.6 Current Weight (lbs) 79.379 kg Weight (Calculated Kilograms) 79.4 Weight (Calculated Grams) 75752.7 Jolon Body Weight 142 % Jolon Body Weight 123 Body Mass Index (BMI) 28.2 Recent Weight Change No Weight Status Overweight GI Symptoms GI Symptoms None Last BM 02/02 x 1 Difficult in: None Food Allergies No Cultural/Ethnic/Orthodox Belief none indicated Usual diet at home unknown Skin Integrity/Comment: Ba 15, cellulitis facial Current %PO Good (75-100%) Estimated Nutritional Goals BEE in Kcals: Adj wt of IBW Calories/Kcals/Kg 27-32 kcal/kg using 68.2 kg Adj wt Kcals Calculated 6319-8231 kcal/day Protein: Adj wt of IBW Protein g/k.2-1.5 gm/kg (HD) Protein Calculated 80-100 gm/day Fluid: ml Per MD due to HD Nutritional Problem 1. Problem Problem Increased nutrient needs related to Etiology impaired skin integrity/ dialysis aeb Signs/Symptoms: Facial cellulitis and on HD Intervention/Recommendation Comments Consider modifying diet to 2gm sodium. Glucose/HG1AC low, no need for Diabetic restriction . Continue to monitor K and Phosphorus levels and need for Renal diet (not needed at this time.) Consider Prosource with meals for added protein due to cellulitis and HD. Expected Outcomes/Goals Expected Outcomes/Goals oral intake to meet >75% of nutrient needs, nutritino related labs normalize, weight stable.
[2018-02-20] MEDS: Albuterol/Ipratropium Neb 3 ML AERS HHN SCH ×5 (07:25→22:16)
[2018-02-20 07:28] LABS: % EOSINOPHILS 9.2 % (0.0-5.0); % LYMPHOCYTES 18.4 % (20.0-50.0); % MONOCYTES 8.2 % (2.0-10.0); % NEUTROPHILS 63.2 % (40.0-80.0); BASOPHILE ABSOLUTE 0.1 Th/cumm (0-0.2); EOSINOPHILE ABSOLUTE 0.9 Th/cmm (0.1-0.4); HEMATOCRIT 33.1 % (41.0-60); HEMOGLOBIN 10.7 gm/dL (12-16); LYMPHOCYTE ABSOLUTE 1.8 Th/cmm (1.5-3.0); MEAN CELL VOLUME 91.5 fl (80-99); MEAN CORPUSCULAR HEMOGLOBIN 29.7 pg (27.0-31.0); MEAN CORPUSCULAR HGB CONC 32.4 pg (28.0-36.0); MEAN PLATELET VOLUME 6.6 fl; MONOCYTE ABSOLUTE 0.8 Th/cmm (0.3-1.0); NEUTROPHILE ABSOLUTE 6.2 Th/cmm (1.8-8.0); PLATELET COUNT 280 Th/cmm (150-400); RED BLOOD COUNT 3.62 Mil/cmm (3.80-5.80); RED CELL DISTRIBUTION WIDTH 15.5 % (11.5-20.0); WHITE BLOOD COUNT 9.8 Th/cmm (4.8-10.8)
[2018-02-20 07:45] LABS: ALB/GLOB RATIO 0.8 (1.0-1.8); ALBUMIN 2.6 gm/dL (4.2-5.5); ANION GAP 12.6 (7.0-16.0); BILIRUBIN,TOTAL 0.4 mg/dL (0.3-1.0); CALCIUM SERUM 9.3 mg/dL (8.6-10.3); CARBON DIOXIDE 26.6 mEq/L (21.0-31.0); GFR AFRICAN-AMERICAN 10.6 ml/min (>90); GFR NON AFRICAN-AMERICAN 8.7 ml/min; POTASSIUM SERUM 4.2 mEq/L (3.5-5.1)
[2018-02-20 07:47] LABS: CREATININE - SERUM 6.8 mg/dL (0.7-1.3)
--- NOTE | 2018-02-20 07:57 | General Progress Note ---
Subjective - Review of Systems Service Date: 02/20/18 Events since last encounter: talked to [id number] yesterday who informed patient regarding need for surgery for persisting right lung collapse discussed with Dr. Tapia who feels we need to resolve the above surgically after poor response with chest tube and bronchoscopy Objective - Results Result Diagrams: 02/20/18 07:00 02/20/18 07:00 Recent Labs: Laboratory Last Values WBC 9.8 Th/cmm (4.8-10.8) 02/20/18 07:00 RBC 3.62 Mil/cmm (3.80-5.80) L 02/20/18 07:00 Hgb 10.7 gm/dL (12-16) L 02/20/18 07:00 Hct 33.1 % (41.0-60) L 02/20/18 07:00 MCV 91.5 fl (80-99) 02/20/18 07:00 MCH 29.7 pg (27.0-31.0) 02/20/18 07:00 MCHC Differential 32.4 pg (28.0-36.0) 02/20/18 07:00 RDW 15.5 % (11.5-20.0) 02/20/18 07:00 Plt Count 280 Th/cmm (150-400) 02/20/18 07:00 MPV 6.6 fl 02/20/18 07:00 Neutrophils % 63.2 % (40.0-80.0) 02/20/18 07:00 Lymphocytes % 18.4 % (20.0-50.0) L 02/20/18 07:00 Monocytes % 8.2 % (2.0-10.0) 02/20/18 07:00 Eosinophils % 9.2 % (0.0-5.0) H 02/20/18 07:00 Basophils % 1.0 % (0.0-2.0) 02/20/18 07:00 ESR 87 mm/hr (0-20) H 01/31/18 04:15 PT 9.9 SECONDS (9.5-11.5) 01/29/18 16:42 INR 0.95 (0.5-1.4) 01/29/18 16:42 PTT (Actin FS) 29.9 SECONDS (26.0-38.0) 01/29/18 16:42 Sodium 137 mEq/L (136-145) 02/20/18 07:00 Potassium 4.2 mEq/L (3.5-5.1) 02/20/18 07:00 Chloride 102 mEq/L (98-107) 02/20/18 07:00 Carbon Dioxide 26.6 mEq/L (21.0-31.0) 02/20/18 07:00 Anion Gap 12.6 (7.0-16.0) 02/20/18 07:00 BUN 29 mg/dL (7-25) H 02/20/18 07:00 Creatinine 6.8 mg/dL (0.7-1.3) H* 02/20/18 07:00 Est GFR ( Amer) 10.6 ml/min (>90) 02/20/18 07:00 Est GFR (Non-Af Amer) 8.7 ml/min 02/20/18 07:00 BUN/Creatinine Ratio 4.3 02/20/18 07:00 Glucose 70 mg/dL (70-105) 02/20/18 07:00 POC Glucose 106 MG/DL (70 - 105) H 02/08/18 12:11 Hemoglobin A1c % 3.5 % (4.0-6.0) L 01/31/18 04:15 Whole Bld Lactic Acid 0.55 mmol/L (0.60-1.99) L 01/29/18 16:42 Calcium 9.3 mg/dL (8.6-10.3) 02/20/18 07:00 Phosphorus 4.1 mg/dL (2.5-5.0) 01/31/18 04:15 Magnesium 2.0 mg/dL (1.9-2.7) 02/17/18 05:49 Total Bilirubin 0.4 mg/dL (0.3-1.0) 02/20/18 07:00 AST 11 U/L (13-39) L 02/20/18 07:00 ALT 5 U/L (7-52) L 02/20/18 07:00 Alkaline Phosphatase 52 U/L (34-104) 02/20/18 07:00 Creatine Kinase 12 U/L (30-223) L 01/29/18 16:42 Troponin I 0.02 ng/mL (0.01-0.05) 01/29/18 16:42 C-Reactive Protein 11.4 mg/dL (0.0-0.9) H 01/31/18 04:15 Total Protein 6.0 gm/dL (6.0-8.3) 02/20/18 07:00 Albumin 2.6 gm/dL (4.2-5.5) L 02/20/18 07:00 Globulin 3.4 gm/dL 02/20/18 07:00 Albumin/Globulin Ratio 0.8 (1.0-1.8) L 02/20/18 07:00 Triglycerides 72 mg/dL (<150) 01/31/18 04:15 Cholesterol 97 mg/dL (<200) 01/31/18 04:15 LDL Cholesterol Direct 45 mg/dL (75-193) L 01/31/18 04:15 HDL Cholesterol 36 mg/dL (23-92) 01/31/18 04:15 TSH 2.15 uIU/ml (0.34-5.60) 01/31/18 04:15 PTH Intact 36 pg/mL (15-65) 02/01/18 05:22 Urine Source CLEAN C 02/17/18 16:59 Urine Color YELLOW 02/17/18 16:59 Urine Clarity HAZY (CLEAR) 02/17/18 16:59 Urine pH 8.5 (4.6 - 8.0) 02/17/18 16:59 Ur Specific [place] 1.020 (1.005-1.030) 02/17/18 16:59 Urine Protein >=300 mg/dL (NEGATIVE) 02/17/18 16:59 Urine Glucose (UA) 100 mg/dL (NEGATIVE) H 02/17/18 16:59 Urine Ketones NEGATIVE mg/dL (NEGATIVE) 02/17/18 16:59 Urine Blood LARGE (NEGATIVE) H 02/17/18 16:59 Urine Nitrate NEGATIVE (NEGATIVE) 02/17/18 16:59 Urine Bilirubin NEGATIVE (NEGATIVE) 02/17/18 16:59 Urine Urobilinogen 0.2 E.U./dL (0.2 - 1.0) 02/17/18 16:59 Ur Leukocyte Esterase SMALL (NEGATIVE) H 02/17/18 16:59 Urine RBC 25-50 /hpf (0-5) H 02/17/18 16:59 Urine WBC 6-10 /hpf (0-5) 02/17/18 16:59 Ur Epithelial Cells MODERATE /lpf (FEW) 02/17/18 16:59 Urine Bacteria FEW /hpf (NONE SEEN) 02/17/18 16:59 Fluid Source PLEURAL 02/01/18 11:00 Fluid Color PALE YELLOW 02/01/18 11:00 Fluid Appearance HAZY 02/01/18 11:00 Fluid WBC 149 /cumm 02/01/18 11:00 Fluid RBC 185 /cumm 02/01/18 11:00 Fluid Neutrophils 2 % 02/01/18 11:00 Fluid Lymphocytes 50 % 02/01/18 11:00 Fluid Monocytes 48 % 02/01/18 11:00 Fluid Glucose 75.0 mg/dL 02/01/18 11:00 Fluid Total Protein 2.3 g/dL 02/01/18 11:00 Fluid Amylase 61 U/L 02/01/18 11:00 Random Vancomycin 22.5 ug/mL (5.0-40.0) 02/04/18 05:52 - Physical Exam Vitals and I&O: Vital Signs Temp 97.2 F 02/20/18 04:00 Pulse 65 02/20/18 04:00 Resp 18 02/20/18 04:00 BP 170/77 02/20/18 04:00 Pulse Ox 100 02/20/18 04:00 Intake & Output 02/19/18 02/20/18 02/20/18 18:59 06:59 18:59 Intake Total 120 Output Total 560 Balance -440 Weight (lbs) 69.49 kg Intake: Oral 120 Output: Chest Tube Drainage 360 Right Lower Anterior 360 Chest Urine 200 Other: # Bowel Movements 0 Weight Source Bedscale Active Medications: Current Medications Acetaminophen (Tylenol) 650 mg PO Q6HR PRN PRN Reason: PAIN Stop: 03/30/18 23:07 Acetaminophen/Hydrocodone Bitart ([place] 5mg/325mg) 2 tab PO Q4H PRN PRN Reason: Pain (Moderate) Stop: 03/30/18 23:16 Last Admin: 02/18/18 22:42 Dose: 2 tab Al Hydrox/Mg Hydrox/Simethicone (Maalox) 30 ml PO Q4H PRN PRN Reason: Heartburn Stop: 04/17/18 22:02 Last Admin: 02/16/18 22:29 Dose: 30 ml Albuterol Sulfate (Albuterol 2.5mg/3ml Neb Ud) 2.5 mg HHN Q1H PRN PRN Reason: Respiratory Distress Stop: 03/31/18 07:59 Last Admin: 02/01/18 15:33 Dose: 2.5 mg Albuterol/Ipratropium (Duoneb Neb) 3 ml HHN Q4HRT [facility] Stop: 03/31/18 14:59 Last Admin: 02/20/18 07:25 Dose: Not Given Atorvastatin Calcium (Lipitor) 40 mg PO HS [facility] Stop: 03/31/18 20:59 Last Admin: 02/19/18 20:49 Dose: 40 mg Cinacalcet (Sensipar) 30 mg PO DAILY [facility] Stop: 03/31/18 08:59 Last Admin: 02/19/18 08:33 Dose: Not Given Diclofenac Sodium (Voltaren) 50 mg PO BID [facility] Stop: 04/01/18 08:59 Last Admin: 02/19/18 17:50 Dose: 50 mg Docusate Sodium (Colace) 100 mg PO DAILY [facility] Stop: 03/31/18 08:59 Last Admin: 02/19/18 08:32 Dose: 100 mg Famotidine (Pepcid) 20 mg PO DAILY [facility] Stop: 04/18/18 08:59 Last Admin: 02/19/18 08:32 Dose: 20 mg Ipratropium [place] (Atrovent Neb 0.5mg/2.5ml) 0.5 mg HHN Q6HRT [facility] Stop: 03/31/18 12:59 Last Admin: 02/18/18 15:11 Dose: 0.5 mg Lactobacillus Rhamnosus (Culturelle 15b) 1 each PO DAILY [facility] Stop: 04/15/18 08:59 Last Admin: 02/19/18 08:33 Dose: Not Given Levofloxacin (Levaquin) 250 mg PO DAILY [facility] Stop: 04/19/18 16:59 Last Admin: 02/19/18 08:32 Dose: 250 mg Megestrol Acetate (Megace) 400 mg PO DAILY [facility] PRN Reason: Protocol Stop: 03/31/18 08:59 Last Admin: 02/19/18 08:33 Dose: Not Given Midodrine (Proamatine) 10 mg PO TID [facility] Stop: 04/16/18 00:29 Last Admin: 02/19/18 20:49 Dose: 10 mg Miscellaneous (Clinical Monitoring) 1 ea MC DAILY PRN PRN Reason: RENAL Stop: 04/08/18 08:30 Miscellaneous (Probiotic Screen) 1 ea MC PRN PRN PRN Reason: PROTOCOL Stop: 04/14/18 09:44 Morphine Sulfate (Morphine) 1 mg IVP Q4HR PRN PRN Reason: Pain (Severe) Stop: 03/30/18 23:17 Last Admin: 02/10/18 21:11 Dose: 1 mg Sevelamer Carbonate (Renvela) 800 mg PO TID [facility] Stop: 03/30/18 23:14 Last Admin: 02/19/18 20:49 Dose: 800 mg Vitamin B Complex/Vit C/Folic Acid (Vitamin B Complex W/Vitamin C) 1 tab PO DAILY [facility] Stop: 03/31/18 08:59 Last Admin: 02/19/18 08:32 Dose: 1 tab General: Alert, Oriented x3, Cooperative, No acute distress HEENT: Atraumatic, PERRLA, EOMI, Mucous membr. moist/pink Neck: Supple, +2 carotid pulse wo bruit Cardiovascular: Regular rate, Normal S1, Normal S2 Lungs: Other (increased BS right lung field, (+) chest tube) Abdomen: Bowel sounds, Soft Extremities: no Edema Neurological: Sensation intact Skin: no Rash Psych/Mental Status: Mood NL - Procedures Procedures: Procedures Procedure Code Date DRAINAGE OF R PLEURAL CAV WITH DRAIN DEV, PERC APPROACH [id number] 01/29/18 DRAINAGE OF RIGHT LOWER LUNG LOBE, ENDO, DIAGN [id number] 01/29/18 Assessment/Plan - Problem List Patient Problems: All Active Problems RIGHT FACIAL SWELLING AND PAIN (Acute) Nutritional Asmnt/Malnutr-PDOC - Dietary Evaluation Malnutrition Findings (Please click <Entered> for more info): Nutritional Asmnt/Malnutrition Start: 02/03/18 12: 10 Text: Status: Complete Freq: Document 02/03/18 12:10 MMULHERN (Rec: 02/03/18 12:31 [email or web address]) Nutritional Asmnt/Malnutrition Patient General Information Nutritional Screening Moderate Risk Diagnosis Rt facuial cellulitis, rt pleural effusion Pertinent Medical Hx/Surgical Hx ESRD on dialysis x 7 years, COPD, hyperlipidemia, Type 2 diabetes Subjective Information Per H&P, patient was on peritoneal dialysis up to a few months ago when he was diagnosed with peritonitis ( now on HD TTS). Per nursing notes, pt refusing some medications. Diet education not appropriate at this time. Current Diet Order/ Nutrition Support 60 gm CCHO, 1200 ml fluid restriction Patient / S.O Not Indicated Pertinent Medications lipitor, Sensipar, colace, lasix, Epogen, Megacem abx, Renvela, Vitamin B complex with C Pertinent Labs ((02/02) Cr 4.5, Ca 8.5, albumin 24 Nutritional Hx/Data Height 1.68 m Height (Calculated Centimeters) 167.6 Current Weight (lbs) 79.379 kg Weight (Calculated Kilograms) 79.4 Weight (Calculated Grams) 45264.7 [place] Body Weight 142 % [place] Body Weight 123 Body Mass Index (BMI) 28.2 Recent Weight Change No Weight Status Overweight GI Symptoms GI Symptoms None Last BM 02/02 x 1 Difficult in: None Food Allergies No Cultural/Ethnic/[employer]ian Belief none indicated Usual diet at home unknown Skin Integrity/Comment: Ba 15, cellulitis facial Current %PO Good (75-100%) Estimated Nutritional Goals BEE in Kcals: Adj wt of IBW Calories/Kcals/Kg 27-32 kcal/kg using 68.2 kg Adj wt Kcals Calculated 0553-3821 kcal/day Protein: Adj wt of IBW Protein g/k.2-1.5 gm/kg (HD) Protein Calculated 80-100 gm/day Fluid: ml Per MD due to HD Nutritional Problem 1. Problem Problem Increased nutrient needs related to Etiology impaired skin integrity/ dialysis aeb Signs/Symptoms: Facial cellulitis and on HD Intervention/Recommendation Comments Consider modifying diet to 2gm sodium. Glucose/HG1AC low, no need for Diabetic restriction . Continue to monitor K and Phosphorus levels and need for Renal diet (not needed at this time.) Consider Prosource with meals for added protein due to cellulitis and HD. Expected Outcomes/Goals Expected Outcomes/Goals oral intake to meet >75% of nutrient needs, nutritino related labs normalize, weight stable.
--- NOTE | 2018-02-20 08:53 | Diagnostic Imaging Report ---
Portable chest x-ray HISTORY: Pneumothorax Compared with prior exam of February 16, 2018, there remains opacification of the majority of the right hemithorax consistent with pleural fluid. No change in right chest tube position. Suggestion of a small amount of air within the right hemithorax. The left lung is clear. IMPRESSION: 1. Little change from 02/16/2018 as noted above.
[2018-02-20] MEDS: Lactobacillus Rhamnosus GG 15 Billion CFU CAP.SPRINK PO SCH (09:59)
[2018-02-20] MEDS: Vitamin B Complex w/Vitamin C Tab PO SCH (10:00)
[2018-02-20 10:06] LABS: INR 0.98 (0.5-1.4); PROTHROMBIN TIME (TEST) 10.2 SECONDS (9.5-11.5)
--- NOTE | 2018-02-20 13:24 | Infectious Disease Prog Note ---
Infectious Disease Subjective - Review of Systems Service Date: 02/20/18 Subjective: No new change, no fever. Infectious Disease Objective - Results Result Diagrams: 02/21/18 04:05 02/21/18 04:05 Recent Labs: Laboratory Last Values WBC 9.8 Th/cmm (4.8-10.8) 02/20/18 07:00 RBC 3.62 Mil/cmm (3.80-5.80) L 02/20/18 07:00 Hgb 10.7 gm/dL (12-16) L 02/20/18 07:00 Hct 33.1 % (41.0-60) L 02/20/18 07:00 MCV 91.5 fl (80-99) 02/20/18 07:00 MCH 29.7 pg (27.0-31.0) 02/20/18 07:00 MCHC Differential 32.4 pg (28.0-36.0) 02/20/18 07:00 RDW 15.5 % (11.5-20.0) 02/20/18 07:00 Plt Count 280 Th/cmm (150-400) 02/20/18 07:00 MPV 6.6 fl 02/20/18 07:00 Neutrophils % 63.2 % (40.0-80.0) 02/20/18 07:00 Lymphocytes % 18.4 % (20.0-50.0) L 02/20/18 07:00 Monocytes % 8.2 % (2.0-10.0) 02/20/18 07:00 Eosinophils % 9.2 % (0.0-5.0) H 02/20/18 07:00 Basophils % 1.0 % (0.0-2.0) 02/20/18 07:00 ESR 87 mm/hr (0-20) H 01/31/18 04:15 PT 10.2 SECONDS (9.5-11.5) 02/20/18 09:40 INR 0.98 (0.5-1.4) 02/20/18 09:40 PTT (Actin FS) 30.6 SECONDS (26.0-38.0) 02/20/18 09:40 Sodium 137 mEq/L (136-145) 02/20/18 07:00 Potassium 4.2 mEq/L (3.5-5.1) 02/20/18 07:00 Chloride 102 mEq/L (98-107) 02/20/18 07:00 Carbon Dioxide 26.6 mEq/L (21.0-31.0) 02/20/18 07:00 Anion Gap 12.6 (7.0-16.0) 02/20/18 07:00 BUN 29 mg/dL (7-25) H 02/20/18 07:00 Creatinine 6.8 mg/dL (0.7-1.3) H* 02/20/18 07:00 Est GFR ( Amer) 10.6 ml/min (>90) 02/20/18 07:00 Est GFR (Non-Af Amer) 8.7 ml/min 02/20/18 07:00 BUN/Creatinine Ratio 4.3 02/20/18 07:00 Glucose 70 mg/dL (70-105) 02/20/18 07:00 POC Glucose 106 MG/DL (70 - 105) H 02/08/18 12:11 Hemoglobin A1c % 3.5 % (4.0-6.0) L 01/31/18 04:15 Whole Bld Lactic Acid 0.55 mmol/L (0.60-1.99) L 01/29/18 16:42 Calcium 9.3 mg/dL (8.6-10.3) 02/20/18 07:00 Phosphorus 4.1 mg/dL (2.5-5.0) 01/31/18 04:15 Magnesium 2.0 mg/dL (1.9-2.7) 02/17/18 05:49 Total Bilirubin 0.4 mg/dL (0.3-1.0) 02/20/18 07:00 AST 11 U/L (13-39) L 02/20/18 07:00 ALT 5 U/L (7-52) L 02/20/18 07:00 Alkaline Phosphatase 52 U/L (34-104) 02/20/18 07:00 Creatine Kinase 12 U/L (30-223) L 01/29/18 16:42 Troponin I 0.02 ng/mL (0.01-0.05) 01/29/18 16:42 C-Reactive Protein 11.4 mg/dL (0.0-0.9) H 01/31/18 04:15 Total Protein 6.0 gm/dL (6.0-8.3) 02/20/18 07:00 Albumin 2.6 gm/dL (4.2-5.5) L 02/20/18 07:00 Globulin 3.4 gm/dL 02/20/18 07:00 Albumin/Globulin Ratio 0.8 (1.0-1.8) L 02/20/18 07:00 Triglycerides 72 mg/dL (<150) 01/31/18 04:15 Cholesterol 97 mg/dL (<200) 01/31/18 04:15 LDL Cholesterol Direct 45 mg/dL (75-193) L 01/31/18 04:15 HDL Cholesterol 36 mg/dL (23-92) 01/31/18 04:15 TSH 2.15 uIU/ml (0.34-5.60) 01/31/18 04:15 PTH Intact 36 pg/mL (15-65) 02/01/18 05:22 Urine Source CLEAN C 02/17/18 16:59 Urine Color YELLOW 02/17/18 16:59 Urine Clarity HAZY (CLEAR) 02/17/18 16:59 Urine pH 8.5 (4.6 - 8.0) 02/17/18 16:59 Ur Specific [place] 1.020 (1.005-1.030) 02/17/18 16:59 Urine Protein >=300 mg/dL (NEGATIVE) 02/17/18 16:59 Urine Glucose (UA) 100 mg/dL (NEGATIVE) H 02/17/18 16:59 Urine Ketones NEGATIVE mg/dL (NEGATIVE) 02/17/18 16:59 Urine Blood LARGE (NEGATIVE) H 02/17/18 16:59 Urine Nitrate NEGATIVE (NEGATIVE) 02/17/18 16:59 Urine Bilirubin NEGATIVE (NEGATIVE) 02/17/18 16:59 Urine Urobilinogen 0.2 E.U./dL (0.2 - 1.0) 02/17/18 16:59 Ur Leukocyte Esterase SMALL (NEGATIVE) H 02/17/18 16:59 Urine RBC 25-50 /hpf (0-5) H 02/17/18 16:59 Urine WBC 6-10 /hpf (0-5) 02/17/18 16:59 Ur Epithelial Cells MODERATE /lpf (FEW) 02/17/18 16:59 Urine Bacteria FEW /hpf (NONE SEEN) 02/17/18 16:59 Fluid Source PLEURAL 02/01/18 11:00 Fluid Color PALE YELLOW 02/01/18 11:00 Fluid Appearance HAZY 02/01/18 11:00 Fluid WBC 149 /cumm 02/01/18 11:00 Fluid RBC 185 /cumm 02/01/18 11:00 Fluid Neutrophils 2 % 02/01/18 11:00 Fluid Lymphocytes 50 % 02/01/18 11:00 Fluid Monocytes 48 % 02/01/18 11:00 Fluid Glucose 75.0 mg/dL 02/01/18 11:00 Fluid Total Protein 2.3 g/dL 02/01/18 11:00 Fluid Amylase 61 U/L 02/01/18 11:00 Random Vancomycin 22.5 ug/mL (5.0-40.0) 02/04/18 05:52 Blood Type O POSITIVE 02/20/18 07:00 Antibody Screen NEGATIVE 02/20/18 07:00 - Physical Exam Vitals and I&O: Vital Signs Temp 97.1 F 02/20/18 12:00 Pulse 105 02/20/18 12:00 Resp 17 02/20/18 12:00 BP 129/74 02/20/18 12:00 Pulse Ox 98 02/20/18 12:00 Intake & Output 02/19/18 02/20/18 02/20/18 18:59 06:59 18:59 Intake Total 120 Output Total 560 Balance -440 Weight (lbs) 69.49 kg Intake: Oral 120 Output: Chest Tube Drainage 360 Right Lower Anterior 360 Chest Urine 200 Other: # Bowel Movements 0 Weight Source Bedscale Active Medications: Current Medications Acetaminophen (Tylenol) 650 mg PO Q6HR PRN PRN Reason: PAIN Stop: 03/30/18 23:07 Acetaminophen/Hydrocodone Bitart ([place] 5mg/325mg) 2 tab PO Q4H PRN PRN Reason: Pain (Moderate) Stop: 03/30/18 23:16 Last Admin: 02/18/18 22:42 Dose: 2 tab Al Hydrox/Mg Hydrox/Simethicone (Maalox) 30 ml PO Q4H PRN PRN Reason: Heartburn Stop: 04/17/18 22:02 Last Admin: 02/16/18 22:29 Dose: 30 ml Albuterol Sulfate (Albuterol 2.5mg/3ml Neb Ud) 2.5 mg HHN Q1H PRN PRN Reason: Respiratory Distress Stop: 03/31/18 07:59 Last Admin: 02/01/18 15:33 Dose: 2.5 mg Albuterol/Ipratropium (Duoneb Neb) 3 ml HHN Q4HRT [facility] Stop: 03/31/18 14:59 Last Admin: 02/20/18 11:18 Dose: Not Given Atorvastatin Calcium (Lipitor) 40 mg PO HS [facility] Stop: 03/31/18 20:59 Last Admin: 02/19/18 20:49 Dose: 40 mg Cinacalcet (Sensipar) 30 mg PO DAILY [facility] Stop: 03/31/18 08:59 Last Admin: 02/20/18 09:59 Dose: Not Given Diclofenac Sodium (Voltaren) 50 mg PO BID [facility] Stop: 04/01/18 08:59 Last Admin: 02/20/18 09:59 Dose: Not Given Docusate Sodium (Colace) 100 mg PO DAILY [facility] Stop: 03/31/18 08:59 Last Admin: 02/20/18 09:59 Dose: Not Given Famotidine (Pepcid) 20 mg PO DAILY [facility] Stop: 04/18/18 08:59 Last Admin: 02/20/18 09:59 Dose: Not Given Ipratropium [place] (Atrovent Neb 0.5mg/2.5ml) 0.5 mg HHN Q6HRT [facility] Stop: 03/31/18 12:59 Last Admin: 02/18/18 15:11 Dose: 0.5 mg Lactobacillus Rhamnosus (Culturelle 15b) 1 each PO DAILY [facility] Stop: 04/15/18 08:59 Last Admin: 02/20/18 09:59 Dose: Not Given Levofloxacin (Levaquin) 250 mg PO DAILY [facility] Stop: 04/19/18 16:59 Last Admin: 02/20/18 10:00 Dose: Not Given Megestrol Acetate (Megace) 400 mg PO DAILY [facility] PRN Reason: Protocol Stop: 03/31/18 08:59 Last Admin: 02/20/18 10:00 Dose: Not Given Midodrine (Proamatine) 10 mg PO TID [facility] Stop: 04/16/18 00:29 Last Admin: 02/20/18 13:08 Dose: Not Given Miscellaneous (Clinical Monitoring) 1 ea MC DAILY PRN PRN Reason: RENAL Stop: 04/08/18 08:30 Miscellaneous (Probiotic Screen) 1 ea MC PRN PRN PRN Reason: PROTOCOL Stop: 04/14/18 09:44 Morphine Sulfate (Morphine) 1 mg IVP Q4HR PRN PRN Reason: Pain (Severe) Stop: 03/30/18 23:17 Last Admin: 02/10/18 21:11 Dose: 1 mg Sevelamer Carbonate (Renvela) 800 mg PO TID [facility] Stop: 03/30/18 23:14 Last Admin: 02/20/18 13:08 Dose: Not Given Vitamin B Complex/Vit C/Folic Acid (Vitamin B Complex W/Vitamin C) 1 tab PO DAILY [facility] Stop: 03/31/18 08:59 Last Admin: 02/20/18 10:00 Dose: Not Given General: no acute distress, cachectic HEENT: atraumatic, normocephalic, PERRLA, EOMI Neck: supple, no thyromegaly Cardiovascular: S1S2, regular Lungs: clear to percussion, crackles (on the right), other (chest tube on the right side.) Abdomen: soft, no tender, no distended, no mass, no hepatomegaly Extremities: no cyanosis, no clubbing, no edema Neurological: awake, alert, oriented Skin: intact - Procedures Procedures: Procedures Procedure Code Date DRAINAGE OF R PLEURAL CAV WITH DRAIN DEV, PERC APPROACH [id number] 01/29/18 DRAINAGE OF RIGHT LOWER LUNG LOBE, ENDO, DIAGN [id number] 01/29/18 Infectious Disease Assmt/Plan - Problem List Patient Problems: All Active Problems RIGHT FACIAL SWELLING AND PAIN (Acute) - Assessment Assessment: 1. Pleural effusion with lymphocyte predominance. Empyema culture growing Pseudomonas. It is not clear whether it is from the bronchoalveolar lavage are from the pleural fluid. The differential includes malignant pleural effusion, versus tuberculous empyema. 2. Pseudomonas pneumonia. 3. Chronic kidney disease stage 5, on hemodialysis. 4. Diabetes mellitus type 2. 5. Chronic obstructive pulmonary disease. 6. Hyperlipidemia. 7. Urinary tract infection, treated. 8. Hyperlipidemia. - Plan Plan: Continue the same treatment. Nutritional Asmnt/Malnutr-PDOC - Dietary Evaluation Malnutrition Findings (Please click <Entered> for more info): Nutritional Asmnt/Malnutrition Start: 02/03/18 12: 10 Text: Status: Complete Freq: Document 02/03/18 12:10 RICO (Rec: 02/03/18 12:31 [email or web address]) Nutritional Asmnt/Malnutrition Patient General Information Nutritional Screening Moderate Risk Diagnosis Rt facuial cellulitis, rt pleural effusion Pertinent Medical Hx/Surgical Hx ESRD on dialysis x 7 years, COPD, hyperlipidemia, Type 2 diabetes Subjective Information Per H&P, patient was on peritoneal dialysis up to a few months ago when he was diagnosed with peritonitis ( now on HD TTS). Per nursing notes, pt refusing some medications. Diet education not appropriate at this time. Current Diet Order/ Nutrition Support 60 gm CCHO, 1200 ml fluid restriction Patient / S.O Not Indicated Pertinent Medications lipitor, Sensipar, colace, lasix, Epogen, Megacem abx, Renvela, Vitamin B complex with C Pertinent Labs ((02/02) Cr 4.5, Ca 8.5, albumin 24 Nutritional Hx/Data Height 1.68 m Height (Calculated Centimeters) 167.6 Current Weight (lbs) 79.379 kg Weight (Calculated Kilograms) 79.4 Weight (Calculated Grams) 43298.7 [place] Body Weight 142 % [place] Body Weight 123 Body Mass Index (BMI) 28.2 Recent Weight Change No Weight Status Overweight GI Symptoms GI Symptoms None Last BM 02/02 x 1 Difficult in: None Food Allergies No Cultural/Ethnic/Gnosticist Belief none indicated Usual diet at home unknown Skin Integrity/Comment: Ba 15, cellulitis facial Current %PO Good (75-100%) Estimated Nutritional Goals BEE in Kcals: Adj wt of IBW Calories/Kcals/Kg 27-32 kcal/kg using 68.2 kg Adj wt Kcals Calculated 2505-9763 kcal/day Protein: Adj wt of IBW Protein g/k.2-1.5 gm/kg (HD) Protein Calculated 80-100 gm/day Fluid: ml Per MD due to HD Nutritional Problem 1. Problem Problem Increased nutrient needs related to Etiology impaired skin integrity/ dialysis aeb Signs/Symptoms: Facial cellulitis and on HD Intervention/Recommendation Comments Consider modifying diet to 2gm sodium. Glucose/HG1AC low, no need for Diabetic restriction . Continue to monitor K and Phosphorus levels and need for Renal diet (not needed at this time.) Consider Prosource with meals for added protein due to cellulitis and HD. Expected Outcomes/Goals Expected Outcomes/Goals oral intake to meet >75% of nutrient needs, nutritino related labs normalize, weight stable.
[2018-02-20] MEDS ORDERED: Propofol **SURGERY USE ONLY** 20 ML IV ONE (13:51)
--- NOTE | 2018-02-20 14:27 | General Progress Note ---
Subjective - Review of Systems Service Date: 02/20/18 Subjective: more alert, verbal, comfortable Objective - Results Result Diagrams: 02/20/18 07:00 02/20/18 13:44 Recent Labs: Laboratory Last Values WBC 9.8 Th/cmm (4.8-10.8) 02/20/18 07:00 RBC 3.62 Mil/cmm (3.80-5.80) L 02/20/18 07:00 Hgb 10.7 gm/dL (12-16) L 02/20/18 07:00 Hct 33.1 % (41.0-60) L 02/20/18 07:00 MCV 91.5 fl (80-99) 02/20/18 07:00 MCH 29.7 pg (27.0-31.0) 02/20/18 07:00 MCHC Differential 32.4 pg (28.0-36.0) 02/20/18 07:00 RDW 15.5 % (11.5-20.0) 02/20/18 07:00 Plt Count 280 Th/cmm (150-400) 02/20/18 07:00 MPV 6.6 fl 02/20/18 07:00 Neutrophils % 63.2 % (40.0-80.0) 02/20/18 07:00 Lymphocytes % 18.4 % (20.0-50.0) L 02/20/18 07:00 Monocytes % 8.2 % (2.0-10.0) 02/20/18 07:00 Eosinophils % 9.2 % (0.0-5.0) H 02/20/18 07:00 Basophils % 1.0 % (0.0-2.0) 02/20/18 07:00 ESR 87 mm/hr (0-20) H 01/31/18 04:15 PT 10.2 SECONDS (9.5-11.5) 02/20/18 09:40 INR 0.98 (0.5-1.4) 02/20/18 09:40 PTT (Actin FS) 30.6 SECONDS (26.0-38.0) 02/20/18 09:40 Sodium 137 mEq/L (136-145) 02/20/18 07:00 Potassium 3.8 mEq/L (3.5-5.1) 02/20/18 13:44 Chloride 102 mEq/L (98-107) 02/20/18 07:00 Carbon Dioxide 26.6 mEq/L (21.0-31.0) 02/20/18 07:00 Anion Gap 12.6 (7.0-16.0) 02/20/18 07:00 BUN 29 mg/dL (7-25) H 02/20/18 07:00 Creatinine 6.8 mg/dL (0.7-1.3) H* 02/20/18 07:00 Est GFR ( Amer) 10.6 ml/min (>90) 02/20/18 07:00 Est GFR (Non-Af Amer) 8.7 ml/min 02/20/18 07:00 BUN/Creatinine Ratio 4.3 02/20/18 07:00 Glucose 70 mg/dL (70-105) 02/20/18 07:00 POC Glucose 106 MG/DL (70 - 105) H 02/08/18 12:11 Hemoglobin A1c % 3.5 % (4.0-6.0) L 01/31/18 04:15 Whole Bld Lactic Acid 0.55 mmol/L (0.60-1.99) L 01/29/18 16:42 Calcium 9.3 mg/dL (8.6-10.3) 02/20/18 07:00 Phosphorus 4.1 mg/dL (2.5-5.0) 01/31/18 04:15 Magnesium 2.0 mg/dL (1.9-2.7) 02/17/18 05:49 Total Bilirubin 0.4 mg/dL (0.3-1.0) 02/20/18 07:00 AST 11 U/L (13-39) L 02/20/18 07:00 ALT 5 U/L (7-52) L 02/20/18 07:00 Alkaline Phosphatase 52 U/L (34-104) 02/20/18 07:00 Creatine Kinase 12 U/L (30-223) L 01/29/18 16:42 Troponin I 0.02 ng/mL (0.01-0.05) 01/29/18 16:42 C-Reactive Protein 11.4 mg/dL (0.0-0.9) H 01/31/18 04:15 Total Protein 6.0 gm/dL (6.0-8.3) 02/20/18 07:00 Albumin 2.6 gm/dL (4.2-5.5) L 02/20/18 07:00 Globulin 3.4 gm/dL 02/20/18 07:00 Albumin/Globulin Ratio 0.8 (1.0-1.8) L 02/20/18 07:00 Triglycerides 72 mg/dL (<150) 01/31/18 04:15 Cholesterol 97 mg/dL (<200) 01/31/18 04:15 LDL Cholesterol Direct 45 mg/dL (75-193) L 01/31/18 04:15 HDL Cholesterol 36 mg/dL (23-92) 01/31/18 04:15 TSH 2.15 uIU/ml (0.34-5.60) 01/31/18 04:15 PTH Intact 36 pg/mL (15-65) 02/01/18 05:22 Urine Source CLEAN C 02/17/18 16:59 Urine Color YELLOW 02/17/18 16:59 Urine Clarity HAZY (CLEAR) 02/17/18 16:59 Urine pH 8.5 (4.6 - 8.0) 02/17/18 16:59 Ur Specific [place] 1.020 (1.005-1.030) 02/17/18 16:59 Urine Protein >=300 mg/dL (NEGATIVE) 02/17/18 16:59 Urine Glucose (UA) 100 mg/dL (NEGATIVE) H 02/17/18 16:59 Urine Ketones NEGATIVE mg/dL (NEGATIVE) 02/17/18 16:59 Urine Blood LARGE (NEGATIVE) H 02/17/18 16:59 Urine Nitrate NEGATIVE (NEGATIVE) 02/17/18 16:59 Urine Bilirubin NEGATIVE (NEGATIVE) 02/17/18 16:59 Urine Urobilinogen 0.2 E.U./dL (0.2 - 1.0) 02/17/18 16:59 Ur Leukocyte Esterase SMALL (NEGATIVE) H 02/17/18 16:59 Urine RBC 25-50 /hpf (0-5) H 02/17/18 16:59 Urine WBC 6-10 /hpf (0-5) 02/17/18 16:59 Ur Epithelial Cells MODERATE /lpf (FEW) 02/17/18 16:59 Urine Bacteria FEW /hpf (NONE SEEN) 02/17/18 16:59 Fluid Source PLEURAL 02/01/18 11:00 Fluid Color PALE YELLOW 02/01/18 11:00 Fluid Appearance HAZY 02/01/18 11:00 Fluid WBC 149 /cumm 02/01/18 11:00 Fluid RBC 185 /cumm 02/01/18 11:00 Fluid Neutrophils 2 % 02/01/18 11:00 Fluid Lymphocytes 50 % 02/01/18 11:00 Fluid Monocytes 48 % 02/01/18 11:00 Fluid Glucose 75.0 mg/dL 02/01/18 11:00 Fluid Total Protein 2.3 g/dL 02/01/18 11:00 Fluid Amylase 61 U/L 02/01/18 11:00 Random Vancomycin 22.5 ug/mL (5.0-40.0) 02/04/18 05:52 Blood Type O POSITIVE 02/20/18 07:00 Antibody Screen NEGATIVE 02/20/18 07:00 - Physical Exam Vitals and I&O: Vital Signs Temp 97.1 F 02/20/18 12:00 Pulse 105 02/20/18 12:00 Resp 17 02/20/18 12:00 BP 129/74 02/20/18 12:00 Pulse Ox 98 02/20/18 12:00 Intake & Output 02/19/18 02/20/18 02/20/18 18:59 06:59 18:59 Intake Total 120 Output Total 560 Balance -440 Weight (lbs) 69.49 kg Intake: Oral 120 Output: Chest Tube Drainage 360 Right Lower Anterior 360 Chest Urine 200 Other: # Bowel Movements 0 Weight Source Bedscale Active Medications: Current Medications Acetaminophen (Tylenol) 650 mg PO Q6HR PRN PRN Reason: PAIN Stop: 03/30/18 23:07 Acetaminophen/Hydrocodone Bitart (Browder 5mg/325mg) 2 tab PO Q4H PRN PRN Reason: Pain (Moderate) Stop: 03/30/18 23:16 Last Admin: 02/18/18 22:42 Dose: 2 tab Al Hydrox/Mg Hydrox/Simethicone (Maalox) 30 ml PO Q4H PRN PRN Reason: Heartburn Stop: 04/17/18 22:02 Last Admin: 02/16/18 22:29 Dose: 30 ml Albuterol Sulfate (Albuterol 2.5mg/3ml Neb Ud) 2.5 mg HHN Q1H PRN PRN Reason: Respiratory Distress Stop: 03/31/18 07:59 Last Admin: 02/01/18 15:33 Dose: 2.5 mg Albuterol/Ipratropium (Duoneb Neb) 3 ml HHN Q4HRT [facility] Stop: 03/31/18 14:59 Last Admin: 02/20/18 11:18 Dose: Not Given Atorvastatin Calcium (Lipitor) 40 mg PO HS [facility]ANDA Stop: 03/31/18 20:59 Last Admin: 02/19/18 20:49 Dose: 40 mg Cinacalcet (Sensipar) 30 mg PO DAILY [facility]AN[facility] Stop: 03/31/18 08:59 Last Admin: 02/20/18 09:59 Dose: Not Given Diclofenac Sodium (Voltaren) 50 mg PO BID [facility] Stop: 04/01/18 08:59 Last Admin: 02/20/18 09:59 Dose: Not Given Docusate Sodium (Colace) 100 mg PO DAILY [facility] Stop: 03/31/18 08:59 Last Admin: 02/20/18 09:59 Dose: Not Given Famotidine (Pepcid) 20 mg PO DAILY [facility] Stop: 04/18/18 08:59 Last Admin: 02/20/18 09:59 Dose: Not Given Hydromorphone HCl (Dilaudid) 2 mg IVP Q4HR PRN PRN Reason: chest pain Stop: 04/21/18 13:55 Ipratropium Casar (Atrovent Neb 0.5mg/2.5ml) 0.5 mg HHN Q6HRT [facility] Stop: 03/31/18 12:59 Last Admin: 02/18/18 15:11 Dose: 0.5 mg Lactobacillus Rhamnosus (Culturelle 15b) 1 each PO DAILY [facility]AN[facility] Stop: 04/15/18 08:59 Last Admin: 02/20/18 09:59 Dose: Not Given Levofloxacin (Levaquin) 250 mg PO DAILY [facility] Stop: 04/19/18 16:59 Last Admin: 02/20/18 10:00 Dose: Not Given Megestrol Acetate (Megace) 400 mg PO DAILY AMANDA PRN Reason: Protocol Stop: 03/31/18 08:59 Last Admin: 02/20/18 10:00 Dose: Not Given Midodrine (Proamatine) 10 mg PO TID [facility] Stop: 04/16/18 00:29 Last Admin: 02/20/18 13:08 Dose: Not Given Miscellaneous (Clinical Monitoring) 1 ea MC DAILY PRN PRN Reason: RENAL Stop: 04/08/18 08:30 Miscellaneous (Probiotic Screen) 1 ea MC PRN PRN PRN Reason: PROTOCOL Stop: 04/14/18 09:44 Sevelamer Carbonate (Renvela) 800 mg PO TID [facility] Stop: 03/30/18 23:14 Last Admin: 02/20/18 13:08 Dose: Not Given Vitamin B Complex/Vit C/Folic Acid (Vitamin B Complex W/Vitamin C) 1 tab PO DAILY [facility] Stop: 03/31/18 08:59 Last Admin: 02/20/18 10:00 Dose: Not Given General: Alert, Oriented x3, Cooperative, No acute distress HEENT: Atraumatic, PERRLA, EOMI, Mucous membr. moist/pink Neck: Supple, +2 carotid pulse wo bruit Cardiovascular: Regular rate, Normal S1, Normal S2 Lungs: Other (increased BS right lung field, (+) chest tube) Abdomen: Bowel sounds, Soft Extremities: no Edema Neurological: Sensation intact Skin: no Rash Psych/Mental Status: Mood NL - Procedures Procedures: Procedures Procedure Code Date DRAINAGE OF R PLEURAL CAV WITH DRAIN DEV, PERC APPROACH [id number] 01/29/18 DRAINAGE OF RIGHT LOWER LUNG LOBE, ENDO, DIAGN [id number] 01/29/18 Assessment/Plan - Problem List Patient Problems: All Active Problems RIGHT FACIAL SWELLING AND PAIN (Acute) - Assessment Assessment: ESRD on HD Right facial cellulitis Right lung opacification 2/2 effusion Cx UTI T2DM Anemia of CKD right PTX s/p chest tube - Plan Plan: Lab - Result Diagrams 01/31/18 04:15 01/31/18 04:15 Current Medications Acetaminophen (Tylenol) 650 mg PO Q6HR PRN PRN Reason: PAIN Stop: 03/30/18 23:07 Acetaminophen/Hydrocodone Bitart (Browder 5mg/325mg) 2 tab PO Q4H PRN PRN Reason: Pain (Moderate) Stop: 03/30/18 23:16 Last Admin: 01/29/18 23:29 Dose: 2 tab Acetylcysteine (Mucomyst 20%) 2 ml HHN Q4HRT [facility] Stop: 03/31/18 14:59 Last Admin: 01/31/18 11:27 Dose: 2 ml Albuterol Sulfate (Albuterol 2.5mg/3ml Neb Ud) 2.5 mg HHN Q1H PRN PRN Reason: Respiratory Distress Stop: 03/31/18 07:59 Albuterol/Ipratropium (Duoneb Neb) 3 ml HHN Q4HRT [facility] Stop: 03/31/18 14:59 Last Admin: 01/31/18 11:27 Dose: 3 ml Atorvastatin Calcium (Lipitor) 40 mg PO HS [facility] Stop: 03/31/18 20:59 Last Admin: 01/30/18 21:19 Dose: 40 mg Cinacalcet (Sensipar) 30 mg PO DAILY [facility] Stop: 03/31/18 08:59 Last Admin: 01/31/18 08:28 Dose: Not Given Diclofenac Sodium (Voltaren) 50 mg PO BID [facility] Stop: 04/01/18 08:59 Last Admin: 01/31/18 08:25 Dose: 50 mg Docusate Sodium (Colace) 100 mg PO DAILY [facility] Stop: 03/31/18 08:59 Last Admin: 01/31/18 08:26 Dose: 100 mg Epoetin Vishal (Epogen) 10,000 units SUBQ MWF@1600 [facility] Stop: 04/01/18 15:59 Furosemide (Lasix) 40 mg PO DAILY [facility] Stop: 03/31/18 08:59 Last Admin: 01/31/18 08:26 Dose: 40 mg Heparin Sodium (Porcine) (Heparin) 5,000 units IVP ONCE@2100 [facility] Stop: 01/31/18 21:01 Last Admin: 01/30/18 21:18 Dose: 5,000 units Ceftriaxone Sodium 1 gm/ (Sodium Chloride) 50 mls @ 100 mls/hr IV Q24HR [facility] Stop: 03/31/18 18:59 Last Infusion: 01/30/18 21:50 Dose: Infused Ipratropium Casar (Atrovent Neb 0.5mg/2.5ml) 0.5 mg HHN Q6HRT [facility] Stop: 03/31/18 12:59 Last Admin: 01/31/18 00:57 Dose: Not Given Lactobacillus Rhamnosus (Culturelle 15b) 1 each PO DAILY [facility] Stop: 03/30/18 23:14 Last Admin: 01/31/18 08:27 Dose: 1 each Megestrol Acetate (Megace) 400 mg PO DAILY [facility]AN[facility] PRN Reason: Protocol Stop: 03/31/18 08:59 Last Admin: 01/31/18 09:31 Dose: Not Given Metoprolol Tartrate (Lopressor) 50 mg PO BID [facility] Stop: 03/30/18 23:14 Last Admin: 01/31/18 08:27 Dose: 50 mg Midodrine (Proamatine) 5 mg PO TID PRN PRN Reason: HYPOTENSION Stop: 03/30/18 23:07 Miscellaneous (Vancomycin Iv Per Pharmacy) 1 ea MC PRN [facility] Stop: 03/30/18 21:44 Morphine Sulfate (Morphine) 1 mg IVP Q4HR PRN PRN Reason: Pain (Severe) Stop: 03/30/18 23:17 Last Admin: 01/31/18 08:17 Dose: 1 mg Sevelamer Carbonate (Renvela) 800 mg PO TID [facility] Stop: 03/30/18 23:14 Last Admin: 01/31/18 08:28 Dose: 800 mg Vitamin B Complex/Vit C/Folic Acid (Vitamin B Complex W/Vitamin C) 1 tab PO DAILY [facility] Stop: 03/31/18 08:59 Last Admin: 01/31/18 08:28 Dose: 1 t Lab - Result Diagrams 02/20/18 07:00 02/20/18 13:44 switched to Chest tube 0 ml overnite drain per staff continue Rocephin WBC down to 9.8 bronchoscopy: no endobronchial lesion CXR: no PTX, decreased right lung volume/ PNA/effusion for HD today then lung surgery Nutritional Asmnt/Malnutr-PDOC - Dietary Evaluation Malnutrition Findings (Please click <Entered> for more info): Nutritional Asmnt/Malnutrition Start: 02/03/18 12: 10 Text: Status: Complete Freq: Document 02/03/18 12:10 MMULN (Rec: 02/03/18 12:31 [email or web address] VALERIO- [id number]) Nutritional Asmnt/Malnutrition Patient General Information Nutritional Screening Moderate Risk Diagnosis Rt facuial cellulitis, rt pleural effusion Pertinent Medical Hx/Surgical Hx ESRD on dialysis x 7 years, COPD, hyperlipidemia, Type 2 diabetes Subjective Information Per H&P, patient was on peritoneal dialysis up to a few months ago when he was diagnosed with peritonitis ( now on HD TTS). Per nursing notes, pt refusing some medications. Diet education not appropriate at this time. Current Diet Order/ Nutrition Support 60 gm CCHO, 1200 ml fluid restriction Patient / S.O Not Indicated Pertinent Medications lipitor, Sensipar, colace, lasix, Epogen, Megacem abx, Renvela, Vitamin B complex with C Pertinent Labs ((02/02) Cr 4.5, Ca 8.5, albumin 24 Nutritional Hx/Data Height 1.68 m Height (Calculated Centimeters) 167.6 Current Weight (lbs) 79.379 kg Weight (Calculated Kilograms) 79.4 Weight (Calculated Grams) 73473.7 [place] Body Weight 142 % [place] Body Weight 123 Body Mass Index (BMI) 28.2 Recent Weight Change No Weight Status Overweight GI Symptoms GI Symptoms None Last BM 02/02 x 1 Difficult in: None Food Allergies No Cultural/Ethnic/Buddhism Belief none indicated Usual diet at home unknown Skin Integrity/Comment: Ba 15, cellulitis facial Current %PO Good (75-100%) Estimated Nutritional Goals BEE in Kcals: Adj wt of IBW Calories/Kcals/Kg 27-32 kcal/kg using 68.2 kg Adj wt Kcals Calculated 2170-5163 kcal/day Protein: Adj wt of IBW Protein g/k.2-1.5 gm/kg (HD) Protein Calculated 80-100 gm/day Fluid: ml Per MD due to HD Nutritional Problem 1. Problem Problem Increased nutrient needs related to Etiology impaired skin integrity/ dialysis aeb Signs/Symptoms: Facial cellulitis and on HD Intervention/Recommendation Comments Consider modifying diet to 2gm sodium. Glucose/HG1AC low, no need for Diabetic restriction . Continue to monitor K and Phosphorus levels and need for Renal diet (not needed at this time.) Consider Prosource with meals for added protein due to cellulitis and HD. Expected Outcomes/Goals Expected Outcomes/Goals oral intake to meet >75% of nutrient needs, nutritino related labs normalize, weight stable.
[2018-02-20] MEDS ORDERED: HYDROmorphone 2 mg/mL 1mL Vial ONE (14:50)
[2018-02-20] MEDS ORDERED: Neostigmine 10mg/10mL Vial ONE (14:50)
[2018-02-20] MEDS ORDERED: BUPIVACAINE LIPOSOMAL INJ ONE (14:56)
[2018-02-20] MEDS ORDERED: Metoclopramide 5 mg/mL 2mL Vial ONE (15:23)
[2018-02-20] MEDS ORDERED: HYDROmorphone 1 mg/mL 1mL Syr IVP PRN (16:12)
[2018-02-20] MEDS: Sodium Chloride 0.9% 1,000 ML IV SCH (20:55)
[2018-02-21] MEDS: Albuterol/Ipratropium Neb 3 ML AERS HHN SCH ×5 (03:00→22:15)
[2018-02-21] MEDS: HYDROmorphone 2 mg/mL 1mL Vial IVP PRN ×2 (03:10→10:57)
[2018-02-21 04:42] LABS: HEMATOCRIT 29.9 % (41.0-60); HEMOGLOBIN 9.6 gm/dL (12-16); MEAN CORPUSCULAR HEMOGLOBIN 29.1 pg (27.0-31.0); RED BLOOD COUNT 3.29 Mil/cmm (3.80-5.80); WHITE BLOOD COUNT 11.1 Th/cmm (4.8-10.8)
[2018-02-21 04:43] LABS: % BASOPHILS 0.6 % (0.0-2.0); % EOSINOPHILS 2.8 % (0.0-5.0); % LYMPHOCYTES 12.8 % (20.0-50.0); % MONOCYTES 6.7 % (2.0-10.0); % NEUTROPHILS 77.1 % (40.0-80.0); BASOPHILE ABSOLUTE 0.1 Th/cumm (0-0.2); EOSINOPHILE ABSOLUTE 0.3 Th/cmm (0.1-0.4); LYMPHOCYTE ABSOLUTE 1.4 Th/cmm (1.5-3.0); MEAN PLATELET VOLUME 6.2 fl; MONOCYTE ABSOLUTE 0.7 Th/cmm (0.3-1.0); NEUTROPHILE ABSOLUTE 8.6 Th/cmm (1.8-8.0); PLATELET COUNT 233 Th/cmm (150-400); RED CELL DISTRIBUTION WIDTH 15.2 % (11.5-20.0)
[2018-02-21 04:44] LABS: ANION GAP 8.1 (7.0-16.0); CARBON DIOXIDE 25.3 mEq/L (21.0-31.0); POTASSIUM SERUM 4.4 mEq/L (3.5-5.1)
[2018-02-21 04:46] LABS: ALB/GLOB RATIO 0.8 (1.0-1.8); ALBUMIN 2.2 gm/dL (4.2-5.5); BILIRUBIN,TOTAL 0.4 mg/dL (0.3-1.0); CREATININE - SERUM 4.3 mg/dL (0.7-1.3); GFR AFRICAN-AMERICAN 17.9 ml/min (>90); GFR NON AFRICAN-AMERICAN 14.8 ml/min
[2018-02-21 04:47] LABS: MAGNESIUM 1.5 mg/dL (1.9-2.7)
[2018-02-21] MEDS: Ipratropium Neb 0.5 mg/2.5 mL UD HHN SCH ×3 (06:37→18:52)
--- NOTE | 2018-02-21 07:46 | Diagnostic Imaging Report ---
CHEST X-RAY: AP view INDICATION: Postoperative, cough COMPARISON: 02/20/2018 at 7:47 AM FINDINGS: Right chest tube is seen with tip along the apex. The previous right chest tube is been removed. Right pleural effusion is seen. No gross pneumothorax is identified. There is mild volume loss of the right lung. Subcutaneous emphysema of the right axillary region is noted. Mild cardiomegaly. IMPRESSION: Interval removal of the second right chest tube. The first right chest tube is seen with tip along the right apex. Right effusion and right lung volume loss with probable pneumonia. No gross pneumothorax identified Right-sided subcutaneous emphysema noted.
[2018-02-21] MEDS: Vitamin B Complex w/Vitamin C Tab PO SCH (08:17)
[2018-02-21] MEDS: Lactobacillus Rhamnosus GG 15 Billion CFU CAP.SPRINK PO SCH (08:18)
--- NOTE | 2018-02-21 09:18 | Diagnostic Imaging Report ---
Portable chest x-ray HISTORY: Shortness of breath Compared to prior exam of 02/11/2019, the heart remains enlarged. Pleural density noted in the right hemithorax with volume loss. No change in right chest tube position. Decreasing subcutaneous air noted adjacent to the right neck and chest. IMPRESSION: 1. No change in pulmonary status 2. Decreasing subcutaneous air adjacent to the right chest and neck.
--- NOTE | 2018-02-21 13:14 | Infectious Disease Prog Note ---
Infectious Disease Subjective - Review of Systems Service Date: 02/21/18 Events since last encounter: Operative procedure was reviewed. Subjective: Patient is in ICU. Infectious Disease Objective - Results Result Diagrams: 02/21/18 04:05 02/21/18 04:05 Recent Labs: Laboratory Last Values WBC 11.1 Th/cmm (4.8-10.8) H 02/21/18 04:05 RBC 3.29 Mil/cmm (3.80-5.80) L 02/21/18 04:05 Hgb 9.6 gm/dL (12-16) L 02/21/18 04:05 Hct 29.9 % (41.0-60) L 02/21/18 04:05 MCV 91.0 fl (80-99) 02/21/18 04:05 MCH 29.1 pg (27.0-31.0) 02/21/18 04:05 MCHC Differential 32.0 pg (28.0-36.0) 02/21/18 04:05 RDW 15.2 % (11.5-20.0) 02/21/18 04:05 Plt Count 233 Th/cmm (150-400) 02/21/18 04:05 MPV 6.2 fl 02/21/18 04:05 Neutrophils % 77.1 % (40.0-80.0) 02/21/18 04:05 Lymphocytes % 12.8 % (20.0-50.0) L 02/21/18 04:05 Monocytes % 6.7 % (2.0-10.0) 02/21/18 04:05 Eosinophils % 2.8 % (0.0-5.0) 02/21/18 04:05 Basophils % 0.6 % (0.0-2.0) 02/21/18 04:05 ESR 87 mm/hr (0-20) H 01/31/18 04:15 PT 10.2 SECONDS (9.5-11.5) 02/20/18 09:40 INR 0.98 (0.5-1.4) 02/20/18 09:40 PTT (Actin FS) 30.6 SECONDS (26.0-38.0) 02/20/18 09:40 Sodium 137 mEq/L (136-145) 02/21/18 04:05 Potassium 4.4 mEq/L (3.5-5.1) 02/21/18 04:05 Chloride 108 mEq/L (98-107) H 02/21/18 04:05 Carbon Dioxide 25.3 mEq/L (21.0-31.0) 02/21/18 04:05 Anion Gap 8.1 (7.0-16.0) 02/21/18 04:05 BUN 16 mg/dL (7-25) 02/21/18 04:05 Creatinine 4.3 mg/dL (0.7-1.3) H* 02/21/18 04:05 Est GFR ( Amer) 17.9 ml/min (>90) 02/21/18 04:05 Est GFR (Non-Af Amer) 14.8 ml/min 02/21/18 04:05 BUN/Creatinine Ratio 3.7 02/21/18 04:05 Glucose 88 mg/dL (70-105) 02/21/18 04:05 POC Glucose 106 MG/DL (70 - 105) H 02/08/18 12:11 Hemoglobin A1c % 3.5 % (4.0-6.0) L 01/31/18 04:15 Whole Bld Lactic Acid 0.55 mmol/L (0.60-1.99) L 01/29/18 16:42 Calcium 8.0 mg/dL (8.6-10.3) L 02/21/18 04:05 Phosphorus 4.1 mg/dL (2.5-5.0) 01/31/18 04:15 Magnesium 1.5 mg/dL (1.9-2.7) L 02/21/18 04:05 Total Bilirubin 0.4 mg/dL (0.3-1.0) 02/21/18 04:05 AST 15 U/L (13-39) 02/21/18 04:05 ALT 6 U/L (7-52) L 02/21/18 04:05 Alkaline Phosphatase 41 U/L (34-104) 02/21/18 04:05 Creatine Kinase 12 U/L (30-223) L 01/29/18 16:42 Troponin I 0.02 ng/mL (0.01-0.05) 01/29/18 16:42 C-Reactive Protein 11.4 mg/dL (0.0-0.9) H 01/31/18 04:15 Total Protein 5.0 gm/dL (6.0-8.3) L 02/21/18 04:05 Albumin 2.2 gm/dL (4.2-5.5) L 02/21/18 04:05 Globulin 2.8 gm/dL 02/21/18 04:05 Albumin/Globulin Ratio 0.8 (1.0-1.8) L 02/21/18 04:05 Triglycerides 72 mg/dL (<150) 01/31/18 04:15 Cholesterol 97 mg/dL (<200) 01/31/18 04:15 LDL Cholesterol Direct 45 mg/dL (75-193) L 01/31/18 04:15 HDL Cholesterol 36 mg/dL (23-92) 01/31/18 04:15 TSH 2.15 uIU/ml (0.34-5.60) 01/31/18 04:15 PTH Intact 36 pg/mL (15-65) 02/01/18 05:22 Urine Source CLEAN C 02/17/18 16:59 Urine Color YELLOW 02/17/18 16:59 Urine Clarity HAZY (CLEAR) 02/17/18 16:59 Urine pH 8.5 (4.6 - 8.0) 02/17/18 16:59 Ur Specific [place] 1.020 (1.005-1.030) 02/17/18 16:59 Urine Protein >=300 mg/dL (NEGATIVE) 02/17/18 16:59 Urine Glucose (UA) 100 mg/dL (NEGATIVE) H 02/17/18 16:59 Urine Ketones NEGATIVE mg/dL (NEGATIVE) 02/17/18 16:59 Urine Blood LARGE (NEGATIVE) H 02/17/18 16:59 Urine Nitrate NEGATIVE (NEGATIVE) 02/17/18 16:59 Urine Bilirubin NEGATIVE (NEGATIVE) 02/17/18 16:59 Urine Urobilinogen 0.2 E.U./dL (0.2 - 1.0) 02/17/18 16:59 Ur Leukocyte Esterase SMALL (NEGATIVE) H 02/17/18 16:59 Urine RBC 25-50 /hpf (0-5) H 02/17/18 16:59 Urine WBC 6-10 /hpf (0-5) 02/17/18 16:59 Ur Epithelial Cells MODERATE /lpf (FEW) 02/17/18 16:59 Urine Bacteria FEW /hpf (NONE SEEN) 02/17/18 16:59 Fluid Source PLEURAL 02/01/18 11:00 Fluid Color PALE YELLOW 02/01/18 11:00 Fluid Appearance HAZY 02/01/18 11:00 Fluid WBC 149 /cumm 02/01/18 11:00 Fluid RBC 185 /cumm 02/01/18 11:00 Fluid Neutrophils 2 % 02/01/18 11:00 Fluid Lymphocytes 50 % 02/01/18 11:00 Fluid Monocytes 48 % 02/01/18 11:00 Fluid Glucose 75.0 mg/dL 02/01/18 11:00 Fluid Total Protein 2.3 g/dL 02/01/18 11:00 Fluid Amylase 61 U/L 02/01/18 11:00 Random Vancomycin 22.5 ug/mL (5.0-40.0) 02/04/18 05:52 Blood Type O POSITIVE 02/20/18 07:00 Antibody Screen NEGATIVE 02/20/18 07:00 - Physical Exam Vitals and I&O: Vital Signs Temp 97.8 F 02/21/18 08:00 Pulse 82 02/21/18 13:11 Resp 18 02/21/18 13:11 BP 146/64 02/21/18 11:00 Pulse Ox 99 02/21/18 13:11 Intake & Output 02/20/18 02/21/18 02/21/18 18:59 06:59 18:59 Intake Total 130 320 Output Total 1380 160 Balance -1250 160 Weight (lbs) 69.626 kg 68.266 kg Intake: Oral 130 320 Output: Chest Tube Drainage 350 160 Right Lower Anterior 350 160 Chest Urine 30 Hemodialysis 1000 Other: Weight Source Bedscale Bedscale Active Medications: Current Medications Acetaminophen (Tylenol) 650 mg PO Q6HR PRN PRN Reason: PAIN Stop: 03/30/18 23:07 Acetaminophen/Hydrocodone Bitart ([place] 5mg/325mg) 2 tab PO Q4H PRN PRN Reason: Pain (Moderate) Stop: 03/30/18 23:16 Last Admin: 02/18/18 22:42 Dose: 2 tab Al Hydrox/Mg Hydrox/Simethicone (Maalox) 30 ml PO Q4H PRN PRN Reason: Heartburn Stop: 04/17/18 22:02 Last Admin: 02/16/18 22:29 Dose: 30 ml Albuterol Sulfate (Albuterol 2.5mg/3ml Neb Ud) 2.5 mg HHN Q1H PRN PRN Reason: Respiratory Distress Stop: 03/31/18 07:59 Last Admin: 02/01/18 15:33 Dose: 2.5 mg Albuterol/Ipratropium (Duoneb Neb) 3 ml HHN Q4HRT [facility] Stop: 03/31/18 14:59 Last Admin: 02/21/18 10:25 Dose: 3 ml Atorvastatin Calcium (Lipitor) 40 mg PO HS [facility] Stop: 03/31/18 20:59 Last Admin: 02/20/18 20:50 Dose: 40 mg Cinacalcet (Sensipar) 30 mg PO DAILY [facility] Stop: 03/31/18 08:59 Last Admin: 02/21/18 11:04 Dose: 30 mg Diclofenac Sodium (Voltaren) 50 mg PO BID [facility] Stop: 04/01/18 08:59 Last Admin: 02/21/18 11:04 Dose: 50 mg Docusate Sodium (Colace) 100 mg PO DAILY [facility] Stop: 03/31/18 08:59 Last Admin: 02/21/18 08:16 Dose: 100 mg Famotidine (Pepcid) 20 mg PO DAILY [facility] Stop: 04/18/18 08:59 Last Admin: 02/21/18 08:18 Dose: 20 mg Hydromorphone HCl (Dilaudid) 2 mg IVP Q4HR PRN PRN Reason: chest pain Stop: 04/21/18 13:55 Last Admin: 02/21/18 10:57 Dose: 2 mg Hydromorphone HCl (Dilaudid) 1 mg IVP Q4HR PRN PRN Reason: Pain (Moderate) Stop: 02/21/18 16:11 Sodium Chloride (Nacl 0.9%) 1,000 mls @ 60 mls/hr IV .[id number] [facility] Stop: 02/26/18 19:47 Last Admin: 02/20/18 20:55 Dose: 60 mls/hr Ipratropium [place] (Atrovent Neb 0.5mg/2.5ml) 0.5 mg HHN Q6HRT [facility] Stop: 03/31/18 12:59 Last Admin: 02/21/18 13:11 Dose: 0.5 mg Lactobacillus Rhamnosus (Culturelle 15b) 1 each PO DAILY [facility] Stop: 04/15/18 08:59 Last Admin: 02/21/18 08:18 Dose: 1 each Levofloxacin (Levaquin) 250 mg PO DAILY [facility] Stop: 04/19/18 16:59 Last Admin: 02/21/18 08:18 Dose: 250 mg Megestrol Acetate (Megace) 400 mg PO DAILY [facility]; Protocol Stop: 03/31/18 08:59 Last Admin: 02/21/18 08:17 Dose: 400 mg Midodrine (Proamatine) 10 mg PO TID [facility] Stop: 04/16/18 00:29 Last Admin: 02/21/18 08:17 Dose: 10 mg Miscellaneous (Clinical Monitoring) 1 ea [facility] DAILY PRN PRN Reason: RENAL Stop: 04/08/18 08:30 Miscellaneous (Probiotic Screen) 1 ea MC PRN PRN PRN Reason: PROTOCOL Stop: 04/14/18 09:44 Sevelamer Carbonate (Renvela) 800 mg PO TID [facility] Stop: 03/30/18 23:14 Last Admin: 02/21/18 08:18 Dose: 800 mg Vitamin B Complex/Vit C/Folic Acid (Vitamin B Complex W/Vitamin C) 1 tab PO DAILY [facility] Stop: 03/31/18 08:59 Last Admin: 02/21/18 08:17 Dose: 1 tab General: no acute distress, cachectic HEENT: atraumatic, normocephalic, PERRLA, EOMI Neck: supple, no thyromegaly Cardiovascular: S1S2, regular Lungs: clear to percussion, rhonchi (on the right), other (chest tube on the right. Decreased breath sound in the right.) Abdomen: soft, no tender, no distended, no mass, no rebound, no hepatomegaly Extremities: no cyanosis, no clubbing, no lines Neurological: awake, alert, oriented, CN 2-12 intact Skin: intact - Procedures Procedures: Procedures Procedure Code Date DRAINAGE OF R PLEURAL CAV WITH DRAIN DEV, PERC APPROACH [id number] 01/29/18 DRAINAGE OF RIGHT LOWER LUNG LOBE, ENDO, DIAGN [id number] 01/29/18 Infectious Disease Assmt/Plan - Problem List Patient Problems: All Active Problems RIGHT FACIAL SWELLING AND PAIN (Acute) - Assessment Assessment: 1. Pleural effusion with lymphocyte predominance. Empyema culture growing Pseudomonas. It is not clear whether it is from the bronchoalveolar lavage are from the pleural fluid. The differential includes malignant pleural effusion, versus tuberculous empyema. 2. Pseudomonas pneumonia. 3. Chronic kidney disease stage 5, on hemodialysis. 4. Diabetes mellitus type 2. 5. Chronic obstructive pulmonary disease. 6. Hyperlipidemia. 7. Urinary tract infection, treated. 8. Hyperlipidemia. - Plan Plan: Continue the same treatment. Nutritional Asmnt/Malnutr-PDOC - Dietary Evaluation Malnutrition Findings (Please click <Entered> for more info): Nutritional Asmnt/Malnutrition Start: 02/03/18 12: 10 Text: Status: Complete Freq: Protocol: Document 02/03/18 12:10 [email or web address] (Rec: 02/03/18 12:31 [email or web address] VALERIO- [id number]) Nutritional Asmnt/Malnutrition Patient General Information Nutritional Screening Moderate Risk Diagnosis Rt facuial cellulitis, rt pleural effusion Pertinent Medical Hx/Surgical Hx ESRD on dialysis x 7 years, COPD, hyperlipidemia, Type 2 diabetes Subjective Information Per H&P, patient was on peritoneal dialysis up to a few months ago when he was diagnosed with peritonitis ( now on HD TTS). Per nursing notes, pt refusing some medications. Diet education not appropriate at this time. Current Diet Order/ Nutrition Support 60 gm CCHO, 1200 ml fluid restriction Patient / S.O Not Indicated Pertinent Medications lipitor, Sensipar, colace, lasix, Epogen, Megacem abx, Renvela, Vitamin B complex with C Pertinent Labs ((02/02) Cr 4.5, Ca 8.5, albumin 24 Nutritional Hx/Data Height 1.68 m Height (Calculated Centimeters) 167.6 Current Weight (lbs) 79.379 kg Weight (Calculated Kilograms) 79.4 Weight (Calculated Grams) 38032.7 [place] Body Weight 142 % [place] Body Weight 123 Body Mass Index (BMI) 28.2 Recent Weight Change No Weight Status Overweight GI Symptoms GI Symptoms None Last BM 02/02 x 1 Difficult in: None Food Allergies No Cultural/Ethnic/Zoroastrian Belief none indicated Usual diet at home unknown Skin Integrity/Comment: Ba 15, cellulitis facial Current %PO Good (75-100%) Estimated Nutritional Goals BEE in Kcals: Adj wt of IBW Calories/Kcals/Kg 27-32 kcal/kg using 68.2 kg Adj wt Kcals Calculated 5106-4625 kcal/day Protein: Adj wt of IBW Protein g/k.2-1.5 gm/kg (HD) Protein Calculated 80-100 gm/day Fluid: ml Per MD due to HD Nutritional Problem 1. Problem Problem Increased nutrient needs related to Etiology impaired skin integrity/ dialysis aeb Signs/Symptoms: Facial cellulitis and on HD Intervention/Recommendation Comments Consider modifying diet to 2gm sodium. Glucose/HG1AC low, no need for Diabetic restriction . Continue to monitor K and Phosphorus levels and need for Renal diet (not needed at this time.) Consider Prosource with meals for added protein due to cellulitis and HD. Expected Outcomes/Goals Expected Outcomes/Goals oral intake to meet >75% of nutrient needs, nutritino related labs normalize, weight stable.
--- NOTE | 2018-02-21 15:02 | General Progress Note ---
Subjective - Review of Systems Service Date: 02/21/18 Subjective: more alert, verbal, comfortable Objective - Results Result Diagrams: 02/21/18 04:05 02/21/18 04:05 Recent Labs: Laboratory Last Values WBC 11.1 Th/cmm (4.8-10.8) H 02/21/18 04:05 RBC 3.29 Mil/cmm (3.80-5.80) L 02/21/18 04:05 Hgb 9.6 gm/dL (12-16) L 02/21/18 04:05 Hct 29.9 % (41.0-60) L 02/21/18 04:05 MCV 91.0 fl (80-99) 02/21/18 04:05 MCH 29.1 pg (27.0-31.0) 02/21/18 04:05 MCHC Differential 32.0 pg (28.0-36.0) 02/21/18 04:05 RDW 15.2 % (11.5-20.0) 02/21/18 04:05 Plt Count 233 Th/cmm (150-400) 02/21/18 04:05 MPV 6.2 fl 02/21/18 04:05 Neutrophils % 77.1 % (40.0-80.0) 02/21/18 04:05 Lymphocytes % 12.8 % (20.0-50.0) L 02/21/18 04:05 Monocytes % 6.7 % (2.0-10.0) 02/21/18 04:05 Eosinophils % 2.8 % (0.0-5.0) 02/21/18 04:05 Basophils % 0.6 % (0.0-2.0) 02/21/18 04:05 ESR 87 mm/hr (0-20) H 01/31/18 04:15 PT 10.2 SECONDS (9.5-11.5) 02/20/18 09:40 INR 0.98 (0.5-1.4) 02/20/18 09:40 PTT (Actin FS) 30.6 SECONDS (26.0-38.0) 02/20/18 09:40 Sodium 137 mEq/L (136-145) 02/21/18 04:05 Potassium 4.4 mEq/L (3.5-5.1) 02/21/18 04:05 Chloride 108 mEq/L (98-107) H 02/21/18 04:05 Carbon Dioxide 25.3 mEq/L (21.0-31.0) 02/21/18 04:05 Anion Gap 8.1 (7.0-16.0) 02/21/18 04:05 BUN 16 mg/dL (7-25) 02/21/18 04:05 Creatinine 4.3 mg/dL (0.7-1.3) H* 02/21/18 04:05 Est GFR ( Amer) 17.9 ml/min (>90) 02/21/18 04:05 Est GFR (Non-Af Amer) 14.8 ml/min 02/21/18 04:05 BUN/Creatinine Ratio 3.7 02/21/18 04:05 Glucose 88 mg/dL (70-105) 02/21/18 04:05 POC Glucose 106 MG/DL (70 - 105) H 02/08/18 12:11 Hemoglobin A1c % 3.5 % (4.0-6.0) L 01/31/18 04:15 Whole Bld Lactic Acid 0.55 mmol/L (0.60-1.99) L 01/29/18 16:42 Calcium 8.0 mg/dL (8.6-10.3) L 02/21/18 04:05 Phosphorus 4.1 mg/dL (2.5-5.0) 01/31/18 04:15 Magnesium 1.5 mg/dL (1.9-2.7) L 02/21/18 04:05 Total Bilirubin 0.4 mg/dL (0.3-1.0) 02/21/18 04:05 AST 15 U/L (13-39) 02/21/18 04:05 ALT 6 U/L (7-52) L 02/21/18 04:05 Alkaline Phosphatase 41 U/L (34-104) 02/21/18 04:05 Creatine Kinase 12 U/L (30-223) L 01/29/18 16:42 Troponin I 0.02 ng/mL (0.01-0.05) 01/29/18 16:42 C-Reactive Protein 11.4 mg/dL (0.0-0.9) H 01/31/18 04:15 Total Protein 5.0 gm/dL (6.0-8.3) L 02/21/18 04:05 Albumin 2.2 gm/dL (4.2-5.5) L 02/21/18 04:05 Globulin 2.8 gm/dL 02/21/18 04:05 Albumin/Globulin Ratio 0.8 (1.0-1.8) L 02/21/18 04:05 Triglycerides 72 mg/dL (<150) 01/31/18 04:15 Cholesterol 97 mg/dL (<200) 01/31/18 04:15 LDL Cholesterol Direct 45 mg/dL (75-193) L 01/31/18 04:15 HDL Cholesterol 36 mg/dL (23-92) 01/31/18 04:15 TSH 2.15 uIU/ml (0.34-5.60) 01/31/18 04:15 PTH Intact 36 pg/mL (15-65) 02/01/18 05:22 Urine Source CLEAN C 02/17/18 16:59 Urine Color YELLOW 02/17/18 16:59 Urine Clarity HAZY (CLEAR) 02/17/18 16:59 Urine pH 8.5 (4.6 - 8.0) 02/17/18 16:59 Ur Specific [place] 1.020 (1.005-1.030) 02/17/18 16:59 Urine Protein >=300 mg/dL (NEGATIVE) 02/17/18 16:59 Urine Glucose (UA) 100 mg/dL (NEGATIVE) H 02/17/18 16:59 Urine Ketones NEGATIVE mg/dL (NEGATIVE) 02/17/18 16:59 Urine Blood LARGE (NEGATIVE) H 02/17/18 16:59 Urine Nitrate NEGATIVE (NEGATIVE) 02/17/18 16:59 Urine Bilirubin NEGATIVE (NEGATIVE) 02/17/18 16:59 Urine Urobilinogen 0.2 E.U./dL (0.2 - 1.0) 02/17/18 16:59 Ur Leukocyte Esterase SMALL (NEGATIVE) H 02/17/18 16:59 Urine RBC 25-50 /hpf (0-5) H 02/17/18 16:59 Urine WBC 6-10 /hpf (0-5) 02/17/18 16:59 Ur Epithelial Cells MODERATE /lpf (FEW) 02/17/18 16:59 Urine Bacteria FEW /hpf (NONE SEEN) 02/17/18 16:59 Fluid Source PLEURAL 02/01/18 11:00 Fluid Color PALE YELLOW 02/01/18 11:00 Fluid Appearance HAZY 02/01/18 11:00 Fluid WBC 149 /cumm 02/01/18 11:00 Fluid RBC 185 /cumm 02/01/18 11:00 Fluid Neutrophils 2 % 02/01/18 11:00 Fluid Lymphocytes 50 % 02/01/18 11:00 Fluid Monocytes 48 % 02/01/18 11:00 Fluid Glucose 75.0 mg/dL 02/01/18 11:00 Fluid Total Protein 2.3 g/dL 02/01/18 11:00 Fluid Amylase 61 U/L 02/01/18 11:00 Random Vancomycin 22.5 ug/mL (5.0-40.0) 02/04/18 05:52 Blood Type O POSITIVE 02/20/18 07:00 Antibody Screen NEGATIVE 02/20/18 07:00 - Physical Exam Vitals and I&O: Vital Signs Temp 98.2 F 02/21/18 12:00 Pulse 86 02/21/18 14:00 Resp 19 02/21/18 14:00 BP 125/66 02/21/18 14:00 Pulse Ox 98 02/21/18 14:00 Intake & Output 02/20/18 02/21/18 02/21/18 18:59 06:59 18:59 Intake Total 130 320 Output Total 1380 160 Balance -1250 160 Weight (lbs) 69.626 kg 68.266 kg Intake: Oral 130 320 Output: Chest Tube Drainage 350 160 Right Lower Anterior 350 160 Chest Urine 30 Hemodialysis 1000 Other: Weight Source Bedscale Bedscale Active Medications: Current Medications Acetaminophen (Tylenol) 650 mg PO Q6HR PRN PRN Reason: PAIN Stop: 03/30/18 23:07 Acetaminophen/Hydrocodone Bitart ([place] 5mg/325mg) 2 tab PO Q4H PRN PRN Reason: Pain (Moderate) Stop: 03/30/18 23:16 Last Admin: 02/18/18 22:42 Dose: 2 tab Al Hydrox/Mg Hydrox/Simethicone (Maalox) 30 ml PO Q4H PRN PRN Reason: Heartburn Stop: 04/17/18 22:02 Last Admin: 02/16/18 22:29 Dose: 30 ml Albuterol Sulfate (Albuterol 2.5mg/3ml Neb Ud) 2.5 mg HHN Q1H PRN PRN Reason: Respiratory Distress Stop: 03/31/18 07:59 Last Admin: 02/01/18 15:33 Dose: 2.5 mg Albuterol/Ipratropium (Duoneb Neb) 3 ml HHN Q4HRT [facility] Stop: 03/31/18 14:59 Last Admin: 02/21/18 10:25 Dose: 3 ml Atorvastatin Calcium (Lipitor) 40 mg PO HS [facility] Stop: 03/31/18 20:59 Last Admin: 02/20/18 20:50 Dose: 40 mg Cinacalcet (Sensipar) 30 mg PO DAILY [facility] Stop: 03/31/18 08:59 Last Admin: 02/21/18 11:04 Dose: 30 mg Diclofenac Sodium (Voltaren) 50 mg PO BID [facility] Stop: 04/01/18 08:59 Last Admin: 02/21/18 11:04 Dose: 50 mg Docusate Sodium (Colace) 100 mg PO DAILY [facility] Stop: 03/31/18 08:59 Last Admin: 02/21/18 08:16 Dose: 100 mg Famotidine (Pepcid) 20 mg PO DAILY [facility] Stop: 04/18/18 08:59 Last Admin: 02/21/18 08:18 Dose: 20 mg Hydromorphone HCl (Dilaudid) 2 mg IVP Q4HR PRN PRN Reason: chest pain Stop: 04/21/18 13:55 Last Admin: 02/21/18 10:57 Dose: 2 mg Hydromorphone HCl (Dilaudid) 1 mg IVP Q4HR PRN PRN Reason: Pain (Moderate) Stop: 02/21/18 16:11 Sodium Chloride (Nacl 0.9%) 1,000 mls @ 60 mls/hr IV .[id number] [facility] Stop: 02/26/18 19:47 Last Admin: 02/20/18 20:55 Dose: 60 mls/hr Ipratropium [place] (Atrovent Neb 0.5mg/2.5ml) 0.5 mg HHN Q6HRT [facility] Stop: 03/31/18 12:59 Last Admin: 02/21/18 13:11 Dose: 0.5 mg Lactobacillus Rhamnosus (Culturelle 15b) 1 each PO DAILY [facility] Stop: 04/15/18 08:59 Last Admin: 02/21/18 08:18 Dose: 1 each Levofloxacin (Levaquin) 250 mg PO DAILY [facility] Stop: 04/19/18 16:59 Last Admin: 02/21/18 08:18 Dose: 250 mg Megestrol Acetate (Megace) 400 mg PO DAILY [facility]; Protocol Stop: 03/31/18 08:59 Last Admin: 02/21/18 08:17 Dose: 400 mg Midodrine (Proamatine) 10 mg PO TID [facility] Stop: 04/16/18 00:29 Last Admin: 02/21/18 13:48 Dose: 10 mg Miscellaneous (Clinical Monitoring) 1 ea MC DAILY PRN PRN Reason: RENAL Stop: 04/08/18 08:30 Miscellaneous (Probiotic Screen) 1 ea MC PRN PRN PRN Reason: PROTOCOL Stop: 04/14/18 09:44 Sevelamer Carbonate (Renvela) 800 mg PO TID [facility] Stop: 03/30/18 23:14 Last Admin: 02/21/18 13:48 Dose: 800 mg Vitamin B Complex/Vit C/Folic Acid (Vitamin B Complex W/Vitamin C) 1 tab PO DAILY [facility] Stop: 03/31/18 08:59 Last Admin: 02/21/18 08:17 Dose: 1 tab General: Alert, Oriented x3, Cooperative, No acute distress HEENT: Atraumatic, PERRLA, EOMI, Mucous membr. moist/pink Neck: Supple, +2 carotid pulse wo bruit Cardiovascular: Regular rate, Normal S1, Normal S2 Lungs: Other (increased BS right lung field, (+) chest tube) Abdomen: Bowel sounds, Soft Extremities: no Edema Neurological: Sensation intact Skin: no Rash Psych/Mental Status: Mood NL - Procedures Procedures: Procedures Procedure Code Date DRAINAGE OF R PLEURAL CAV WITH DRAIN DEV, PERC APPROACH [id number] 01/29/18 DRAINAGE OF RIGHT LOWER LUNG LOBE, ENDO, DIAGN [id number] 01/29/18 Assessment/Plan - Problem List Patient Problems: All Active Problems RIGHT FACIAL SWELLING AND PAIN (Acute) - Assessment Assessment: ESRD on HD Right facial cellulitis Right lung opacification 2/2 effusion Cx UTI T2DM Anemia of CKD right PTX s/p chest tube S/P right lung surgery - Plan Plan: Lab - Result Diagrams 01/31/18 04:15 01/31/18 04:15 Current Medications Acetaminophen (Tylenol) 650 mg PO Q6HR PRN PRN Reason: PAIN Stop: 03/30/18 23:07 Acetaminophen/Hydrocodone Bitart ([place] 5mg/325mg) 2 tab PO Q4H PRN PRN Reason: Pain (Moderate) Stop: 03/30/18 23:16 Last Admin: 01/29/18 23:29 Dose: 2 tab Acetylcysteine (Mucomyst 20%) 2 ml HHN Q4HRT [facility] Stop: 03/31/18 14:59 Last Admin: 01/31/18 11:27 Dose: 2 ml Albuterol Sulfate (Albuterol 2.5mg/3ml Neb Ud) 2.5 mg HHN Q1H PRN PRN Reason: Respiratory Distress Stop: 03/31/18 07:59 Albuterol/Ipratropium (Duoneb Neb) 3 ml HHN Q4HRT [facility] Stop: 03/31/18 14:59 Last Admin: 01/31/18 11:27 Dose: 3 ml Atorvastatin Calcium (Lipitor) 40 mg PO HS [facility] Stop: 03/31/18 20:59 Last Admin: 01/30/18 21:19 Dose: 40 mg Cinacalcet (Sensipar) 30 mg PO DAILY [facility] Stop: 03/31/18 08:59 Last Admin: 01/31/18 08:28 Dose: Not Given Diclofenac Sodium (Voltaren) 50 mg PO BID [facility] Stop: 04/01/18 08:59 Last Admin: 01/31/18 08:25 Dose: 50 mg Docusate Sodium (Colace) 100 mg PO DAILY [facility] Stop: 03/31/18 08:59 Last Admin: 01/31/18 08:26 Dose: 100 mg Epoetin Vishal (Epogen) 10,000 units SUBQ MWF@1600 [facility] Stop: 04/01/18 15:59 Furosemide (Lasix) 40 mg PO DAILY [facility] Stop: 03/31/18 08:59 Last Admin: 01/31/18 08:26 Dose: 40 mg Heparin Sodium (Porcine) (Heparin) 5,000 units IVP ONCE@2100 [facility] Stop: 05/09/18 21:01 Last Admin: 01/30/18 21:18 Dose: 5,000 units Ceftriaxone Sodium 1 gm/ (Sodium Chloride) 50 mls @ 100 mls/hr IV Q24HR [facility] Stop: 03/31/18 18:59 Last Infusion: 01/30/18 21:50 Dose: Infused Ipratropium [place] (Atrovent Neb 0.5mg/2.5ml) 0.5 mg HHN Q6HRT [facility] Stop: 03/31/18 12:59 Last Admin: 01/31/18 00:57 Dose: Not Given Lactobacillus Rhamnosus (Culturelle 15b) 1 each PO DAILY [facility] Stop: 03/30/18 23:14 Last Admin: 01/31/18 08:27 Dose: 1 each Megestrol Acetate (Megace) 400 mg PO DAILY [facility] PRN Reason: Protocol Stop: 03/31/18 08:59 Last Admin: 01/31/18 09:31 Dose: Not Given Metoprolol Tartrate (Lopressor) 50 mg PO BID [facility] Stop: 03/30/18 23:14 Last Admin: 01/31/18 08:27 Dose: 50 mg Midodrine (Proamatine) 5 mg PO TID PRN PRN Reason: HYPOTENSION Stop: 03/30/18 23:07 Miscellaneous (Vancomycin Iv Per Pharmacy) 1 ea MC PRN [facility] Stop: 03/30/18 21:44 Morphine Sulfate (Morphine) 1 mg IVP Q4HR PRN PRN Reason: Pain (Severe) Stop: 03/30/18 23:17 Last Admin: 01/31/18 08:17 Dose: 1 mg Sevelamer Carbonate (Renvela) 800 mg PO TID [facility] Stop: 03/30/18 23:14 Last Admin: 01/31/18 08:28 Dose: 800 mg Vitamin B Complex/Vit C/Folic Acid (Vitamin B Complex W/Vitamin C) 1 tab PO DAILY [facility] Stop: 03/31/18 08:59 Last Admin: 01/31/18 08:28 Dose: 1 t Lab - Result Diagrams 02/21/18 04:05 02/21/18 04:05 switched to Chest tube 450 ml overnite drain per staff continue Rocephin WBC up to 11.1 bronchoscopy: no endobronchial lesion CXR: no PTX, decreased right lung volume/ PNA/effusion surgery revealed trapped lung for HD in am Nutritional Asmnt/Malnutr-PDOC - Dietary Evaluation Malnutrition Findings (Please click <Entered> for more info): Nutritional Asmnt/Malnutrition Start: 02/03/18 12: 10 Text: Status: Complete Freq: Protocol: Document 02/03/18 12:10 JENNANancy (Rec: 02/03/18 12:31 RICO IMAN- [email or web address]) Nutritional Asmnt/Malnutrition Patient General Information Nutritional Screening Moderate Risk Diagnosis Rt facuial cellulitis, rt pleural effusion Pertinent Medical Hx/Surgical Hx ESRD on dialysis x 7 years, COPD, hyperlipidemia, Type 2 diabetes Subjective Information Per H&P, patient was on peritoneal dialysis up to a few months ago when he was diagnosed with peritonitis ( now on HD TTS). Per nursing notes, pt refusing some medications. Diet education not appropriate at this time. Current Diet Order/ Nutrition Support 60 gm CCHO, 1200 ml fluid restriction Patient / S.O Not Indicated Pertinent Medications lipitor, Sensipar, colace, lasix, Epogen, Megacem abx, Renvela, Vitamin B complex with C Pertinent Labs ((02/02) Cr 4.5, Ca 8.5, albumin 24 Nutritional Hx/Data Height 1.68 m Height (Calculated Centimeters) 167.6 Current Weight (lbs) 79.379 kg Weight (Calculated Kilograms) 79.4 Weight (Calculated Grams) 04922.7 Doyle Body Weight 142 % Doyle Body Weight 123 Body Mass Index (BMI) 28.2 Recent Weight Change No Weight Status Overweight GI Symptoms GI Symptoms None Last BM 02/02 x 1 Difficult in: None Food Allergies No Cultural/Ethnic/M[employer]on Belief none indicated Usual diet at home unknown Skin Integrity/Comment: Ba 15, cellulitis facial Current %PO Good (75-100%) Estimated Nutritional Goals BEE in Kcals: Adj wt of IBW Calories/Kcals/Kg 27-32 kcal/kg using 68.2 kg Adj wt Kcals Calculated 4464-6394 kcal/day Protein: Adj wt of IBW Protein g/k.2-1.5 gm/kg (HD) Protein Calculated 80-100 gm/day Fluid: ml Per MD due to HD Nutritional Problem 1. Problem Problem Increased nutrient needs related to Etiology impaired skin integrity/ dialysis aeb Signs/Symptoms: Facial cellulitis and on HD Intervention/Recommendation Comments Consider modifying diet to 2gm sodium. Glucose/HG1AC low, no need for Diabetic restriction . Continue to monitor K and Phosphorus levels and need for Renal diet (not needed at this time.) Consider Prosource with meals for added protein due to cellulitis and HD. Expected Outcomes/Goals Expected Outcomes/Goals oral intake to meet >75% of nutrient needs, nutritino related labs normalize, weight stable.
--- NOTE | 2018-02-21 15:46 | Operative Report ---
DATE OF SURGERY: 02/20/2018 PREOPERATIVE DIAGNOSES: 1. 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 2. Recurrent right pleural effusion. 3. End-stage renal disease. 4. Diabetes mellitus. 5. Chronic obstructive pulmonary disease with nicotine dependence. POSTOPERATIVE DIAGNOSES: 1. 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 2. Recurrent right pleural effusion. 3. End-stage renal disease. 4. Diabetes mellitus. 5. Chronic obstructive pulmonary disease with nicotine dependence. OPERATION DONE: 1. Video-assisted thoracoscopy with conversion to open right thoracotomy. 2. Decortication of visceral pleura, whole right lung. 3. Decortication of parietal pleura, posterior chest. 4. Injection of Exparel. SURGEON: Radha Arriola M.D. ANESTHESIA: General. ANESTHESIOLOGIST: Carlton. ESTIMATED BLOOD LOSS: 100 mL. OPERATIVE FINDINGS: A very thickened posterior parietal wall and there was thin peel over the whole right lung resulting in inability for the lung to expand. Decortication was done on both layers of the whole right lung and the posterior chest, minimal air leak following the procedure. The patient was given general anesthesia, but no double lumen tube was available for one lung ventilation. The right chest was elevated, prepped with Betadine and draped in appropriate manner. Incision was made in the mid axillary line at the seventh intercostal space. A hemostat was introduced and fluid was aspirated. The trocar 12 mm was inserted and the scope was introduced. The lung was found to be completely collapsed and because of this, the conversion to open thoracotomy was done. Bleeders were electrocoagulated and the retractors applied. There was thick peel over the posterior parietal pleura. There was thin peel over the visceral pleura, but even with this, the lung would not expand on forced ventilation. Very gentle removal of this peel was done involving the whole right lung. Following completion with took a long time, the whole lung was submerged in saline and minimal air leak was noted. After the procedure done, pleurodesis with doxycycline. Following satisfactory hemostasis, chest tube was applied into the chest cavity and 100 mL of doxycycline solution was instilled. The lung expanded well. The incision was closed with interrupted sutures of #1 PDS for the pericostals and the muscle layers were closed with #1 Vicryl in a continuous suture and the skin was closed with elias. The patient tolerated the procedure well. [facility]# [id number] [place]
[2018-02-21] MEDS: Sodium Chloride 0.9% 1,000 ML IV SCH (16:43)
[2018-02-22] MEDS: Albuterol/Ipratropium Neb 3 ML AERS HHN SCH ×7 (03:05→22:16)
[2018-02-22] MEDS: Ipratropium Neb 0.5 mg/2.5 mL UD HHN SCH ×4 (03:14→18:41)
[2018-02-22 05:03] LABS: % BASOPHILS 1.1 % (0.0-2.0); % EOSINOPHILS 6.9 % (0.0-5.0); % LYMPHOCYTES 15.5 % (20.0-50.0); % MONOCYTES 10.1 % (2.0-10.0); % NEUTROPHILS 66.4 % (40.0-80.0); BASOPHILE ABSOLUTE 0.1 Th/cumm (0-0.2); EOSINOPHILE ABSOLUTE 0.8 Th/cmm (0.1-0.4); HEMATOCRIT 29.3 % (41.0-60); HEMOGLOBIN 9.5 gm/dL (12-16); LYMPHOCYTE ABSOLUTE 1.8 Th/cmm (1.5-3.0); MEAN CELL VOLUME 91.9 fl (80-99); MEAN CORPUSCULAR HEMOGLOBIN 29.7 pg (27.0-31.0); MEAN CORPUSCULAR HGB CONC 32.3 pg (28.0-36.0); MEAN PLATELET VOLUME 6.6 fl; MONOCYTE ABSOLUTE 1.2 Th/cmm (0.3-1.0); PLATELET COUNT 261 Th/cmm (150-400); RED BLOOD COUNT 3.19 Mil/cmm (3.80-5.80); RED CELL DISTRIBUTION WIDTH 15.8 % (11.5-20.0); WHITE BLOOD COUNT 11.9 Th/cmm (4.8-10.8)
[2018-02-22 05:27] LABS: ANION GAP 9.7 (7.0-16.0); CALCIUM SERUM 8.5 mg/dL (8.6-10.3); CARBON DIOXIDE 23.1 mEq/L (21.0-31.0); GFR AFRICAN-AMERICAN 14.1 ml/min (>90); GFR NON AFRICAN-AMERICAN 11.6 ml/min; MAGNESIUM 1.7 mg/dL (1.9-2.7); POTASSIUM SERUM 4.8 mEq/L (3.5-5.1)
[2018-02-22 06:02] LABS: CREATININE - SERUM 5.3 mg/dL (0.7-1.3)
--- NOTE | 2018-02-22 08:38 | Diagnostic Imaging Report ---
CHEST X-RAY: AP view INDICATION: Shortness of breath COMPARISON: 02/21/2018 FINDINGS: Right dialysis catheter and right chest tube are stable. Persistent right effusion is seen with right infiltrates and mild volume loss the right lung. Borderline prominent heart is noted. IMPRESSION: Right pleural effusion and right lung infiltrates and mild volume loss of the right lung.
--- NOTE | 2018-02-22 08:46 | General Progress Note ---
Subjective - Review of Systems Service Date: 02/22/18 Events since last encounter: CT drainage overnight 20 ml xray today shows further clearing, no pneumo eating, having BM Objective - Results Result Diagrams: 02/22/18 04:40 02/22/18 04:40 Recent Labs: Laboratory Last Values WBC 11.9 Th/cmm (4.8-10.8) H 02/22/18 04:40 RBC 3.19 Mil/cmm (3.80-5.80) L 02/22/18 04:40 Hgb 9.5 gm/dL (12-16) L 02/22/18 04:40 Hct 29.3 % (41.0-60) L 02/22/18 04:40 MCV 91.9 fl (80-99) 02/22/18 04:40 MCH 29.7 pg (27.0-31.0) 02/22/18 04:40 MCHC Differential 32.3 pg (28.0-36.0) 02/22/18 04:40 RDW 15.8 % (11.5-20.0) 02/22/18 04:40 Plt Count 261 Th/cmm (150-400) 02/22/18 04:40 MPV 6.6 fl 02/22/18 04:40 Neutrophils % 66.4 % (40.0-80.0) 02/22/18 04:40 Lymphocytes % 15.5 % (20.0-50.0) L 02/22/18 04:40 Monocytes % 10.1 % (2.0-10.0) H 02/22/18 04:40 Eosinophils % 6.9 % (0.0-5.0) H 02/22/18 04:40 Basophils % 1.1 % (0.0-2.0) 02/22/18 04:40 ESR 87 mm/hr (0-20) H 01/31/18 04:15 PT 10.2 SECONDS (9.5-11.5) 02/20/18 09:40 INR 0.98 (0.5-1.4) 02/20/18 09:40 PTT (Actin FS) 30.6 SECONDS (26.0-38.0) 02/20/18 09:40 Sodium 136 mEq/L (136-145) 02/22/18 04:40 Potassium 4.8 mEq/L (3.5-5.1) 02/22/18 04:40 Chloride 108 mEq/L (98-107) H 02/22/18 04:40 Carbon Dioxide 23.1 mEq/L (21.0-31.0) 02/22/18 04:40 Anion Gap 9.7 (7.0-16.0) 02/22/18 04:40 BUN 25 mg/dL (7-25) 02/22/18 04:40 Creatinine 5.3 mg/dL (0.7-1.3) H* 02/22/18 04:40 Est GFR ( Amer) 14.1 ml/min (>90) 02/22/18 04:40 Est GFR (Non-Af Amer) 11.6 ml/min 02/22/18 04:40 BUN/Creatinine Ratio 4.7 02/22/18 04:40 Glucose 72 mg/dL (70-105) 02/22/18 04:40 POC Glucose 106 MG/DL (70 - 105) H 02/08/18 12:11 Hemoglobin A1c % 3.5 % (4.0-6.0) L 01/31/18 04:15 Whole Bld Lactic Acid 0.55 mmol/L (0.60-1.99) L 01/29/18 16:42 Calcium 8.5 mg/dL (8.6-10.3) L 02/22/18 04:40 Phosphorus 4.1 mg/dL (2.5-5.0) 01/31/18 04:15 Magnesium 1.7 mg/dL (1.9-2.7) L 02/22/18 04:40 Total Bilirubin 0.4 mg/dL (0.3-1.0) 02/21/18 04:05 AST 15 U/L (13-39) 02/21/18 04:05 ALT 6 U/L (7-52) L 02/21/18 04:05 Alkaline Phosphatase 41 U/L (34-104) 02/21/18 04:05 Creatine Kinase 12 U/L (30-223) L 01/29/18 16:42 Troponin I 0.02 ng/mL (0.01-0.05) 01/29/18 16:42 C-Reactive Protein 11.4 mg/dL (0.0-0.9) H 01/31/18 04:15 Total Protein 5.0 gm/dL (6.0-8.3) L 02/21/18 04:05 Albumin 2.2 gm/dL (4.2-5.5) L 02/21/18 04:05 Globulin 2.8 gm/dL 02/21/18 04:05 Albumin/Globulin Ratio 0.8 (1.0-1.8) L 02/21/18 04:05 Triglycerides 72 mg/dL (<150) 01/31/18 04:15 Cholesterol 97 mg/dL (<200) 01/31/18 04:15 LDL Cholesterol Direct 45 mg/dL (75-193) L 01/31/18 04:15 HDL Cholesterol 36 mg/dL (23-92) 01/31/18 04:15 TSH 2.15 uIU/ml (0.34-5.60) 01/31/18 04:15 PTH Intact 36 pg/mL (15-65) 02/01/18 05:22 Urine Source CLEAN C 02/17/18 16:59 Urine Color YELLOW 02/17/18 16:59 Urine Clarity HAZY (CLEAR) 02/17/18 16:59 Urine pH 8.5 (4.6 - 8.0) 02/17/18 16:59 Ur Specific [place] 1.020 (1.005-1.030) 02/17/18 16:59 Urine Protein >=300 mg/dL (NEGATIVE) 02/17/18 16:59 Urine Glucose (UA) 100 mg/dL (NEGATIVE) H 02/17/18 16:59 Urine Ketones NEGATIVE mg/dL (NEGATIVE) 02/17/18 16:59 Urine Blood LARGE (NEGATIVE) H 02/17/18 16:59 Urine Nitrate NEGATIVE (NEGATIVE) 02/17/18 16:59 Urine Bilirubin NEGATIVE (NEGATIVE) 02/17/18 16:59 Urine Urobilinogen 0.2 E.U./dL (0.2 - 1.0) 02/17/18 16:59 Ur Leukocyte Esterase SMALL (NEGATIVE) H 02/17/18 16:59 Urine RBC 25-50 /hpf (0-5) H 02/17/18 16:59 Urine WBC 6-10 /hpf (0-5) 02/17/18 16:59 Ur Epithelial Cells MODERATE /lpf (FEW) 02/17/18 16:59 Urine Bacteria FEW /hpf (NONE SEEN) 02/17/18 16:59 Fluid Source PLEURAL 02/01/18 11:00 Fluid Color PALE YELLOW 02/01/18 11:00 Fluid Appearance HAZY 02/01/18 11:00 Fluid WBC 149 /cumm 02/01/18 11:00 Fluid RBC 185 /cumm 02/01/18 11:00 Fluid Neutrophils 2 % 02/01/18 11:00 Fluid Lymphocytes 50 % 02/01/18 11:00 Fluid Monocytes 48 % 02/01/18 11:00 Fluid Glucose 75.0 mg/dL 02/01/18 11:00 Fluid Total Protein 2.3 g/dL 02/01/18 11:00 Fluid Amylase 61 U/L 02/01/18 11:00 Random Vancomycin 22.5 ug/mL (5.0-40.0) 02/04/18 05:52 TB (QFT) Gold In Tube Negative (Negative) 02/18/18 19:50 TB Test (QFT) Mitogen 7.52 IU/mL 02/18/18 19:50 TB Test (QFT) Antigen 0.06 IU/mL 02/18/18 19:50 TB Test Antigen - Nil 0.00 IU/mL 02/18/18 19:50 TB Test TB - Nil 0.06 IU/mL 02/18/18 19:50 TB Test (QFT) Interp 02/18/18 19:50 Blood Type O POSITIVE 02/20/18 07:00 Antibody Screen NEGATIVE 02/20/18 07:00 - Physical Exam Vitals and I&O: Vital Signs Temp 97.4 F 02/22/18 05:00 Pulse 75 02/22/18 06:50 Resp 18 02/22/18 06:50 BP 119/69 02/22/18 06:00 Pulse Ox 96 02/22/18 06:50 Intake & Output 02/21/18 02/22/18 02/22/18 18:59 06:59 18:59 Intake Total 1660 200 Output Total 100 20 Balance 1560 180 Weight (lbs) 68.039 kg 68.039 kg Intake: Intake, IV Amount 1000 Sodium Chloride 0.9% 1, 1000 000 ml @ 60 mls/hr IV . [id number] [facility] Rx#:[id number] Oral 660 200 Output: Chest Tube Drainage 100 20 Right Lower Anterior 100 20 Chest Urine 0 0 Other: # Bowel Movements 0 0 Weight Source Bedscale Bedscale Active Medications: Current Medications Acetaminophen (Tylenol) 650 mg PO Q6HR PRN PRN Reason: PAIN Stop: 03/30/18 23:07 Acetaminophen/Hydrocodone Bitart ([place] 5mg/325mg) 2 tab PO Q4H PRN PRN Reason: Pain (Moderate) Stop: 03/30/18 23:16 Last Admin: 02/18/18 22:42 Dose: 2 tab Al Hydrox/Mg Hydrox/Simethicone (Maalox) 30 ml PO Q4H PRN PRN Reason: Heartburn Stop: 04/17/18 22:02 Last Admin: 02/16/18 22:29 Dose: 30 ml Albuterol Sulfate (Albuterol 2.5mg/3ml Neb Ud) 2.5 mg HHN Q1H PRN PRN Reason: Respiratory Distress Stop: 03/31/18 07:59 Last Admin: 02/01/18 15:33 Dose: 2.5 mg Albuterol/Ipratropium (Duoneb Neb) 3 ml HHN Q4HRT [facility] Stop: 03/31/18 14:59 Last Admin: 02/22/18 06:50 Dose: 3 ml Atorvastatin Calcium (Lipitor) 40 mg PO HS [facility] Stop: 03/31/18 20:59 Last Admin: 02/21/18 20:26 Dose: 40 mg Cinacalcet (Sensipar) 30 mg PO DAILY [facility] Stop: 03/31/18 08:59 Last Admin: 02/21/18 11:04 Dose: 30 mg Diclofenac Sodium (Voltaren) 50 mg PO BID [facility] Stop: 04/01/18 08:59 Last Admin: 02/21/18 16:42 Dose: 50 mg Docusate Sodium (Colace) 100 mg PO DAILY [facility] Stop: 03/31/18 08:59 Last Admin: 02/21/18 08:16 Dose: 100 mg Famotidine (Pepcid) 20 mg PO DAILY [facility] Stop: 04/18/18 08:59 Last Admin: 02/21/18 08:18 Dose: 20 mg Hydromorphone HCl (Dilaudid) 2 mg IVP Q4HR PRN PRN Reason: chest pain Stop: 04/21/18 13:55 Last Admin: 02/21/18 10:57 Dose: 2 mg Sodium Chloride (Nacl 0.9%) 1,000 mls @ 60 mls/hr IV .[id number] [facility] Stop: 02/26/18 19:47 Last Admin: 02/21/18 16:43 Dose: 60 mls/hr Ipratropium [place] (Atrovent Neb 0.5mg/2.5ml) 0.5 mg HHN Q6HRT [facility] Stop: 03/31/18 12:59 Last Admin: 02/22/18 03:14 Dose: Not Given Lactobacillus Rhamnosus (Culturelle 15b) 1 each PO DAILY [facility] Stop: 04/15/18 08:59 Last Admin: 02/21/18 08:18 Dose: 1 each Levofloxacin (Levaquin) 250 mg PO DAILY [facility] Stop: 04/19/18 16:59 Last Admin: 02/21/18 08:18 Dose: 250 mg Megestrol Acetate (Megace) 400 mg PO DAILY [facility]; Protocol Stop: 03/31/18 08:59 Last Admin: 02/21/18 08:17 Dose: 400 mg Midodrine (Proamatine) 10 mg PO TID [facility] Stop: 04/16/18 00:29 Last Admin: 02/21/18 20:26 Dose: 10 mg Miscellaneous (Clinical Monitoring) 1 ea [facility] DAILY PRN PRN Reason: RENAL Stop: 04/08/18 08:30 Miscellaneous (Probiotic Screen) 1 [facility] PRN PRN PRN Reason: PROTOCOL Stop: 04/14/18 09:44 Sevelamer Carbonate (Renvela) 800 mg PO TID [facility] Stop: 03/30/18 23:14 Last Admin: 02/21/18 20:26 Dose: 800 mg Vitamin B Complex/Vit C/Folic Acid (Vitamin B Complex W/Vitamin C) 1 tab PO DAILY [facility] Stop: 03/31/18 08:59 Last Admin: 02/21/18 08:17 Dose: 1 tab General: Alert, Oriented x3, Cooperative, No acute distress HEENT: Atraumatic, PERRLA, EOMI, Mucous membr. moist/pink Neck: Supple, +2 carotid pulse wo bruit Cardiovascular: Regular rate, Normal S1, Normal S2 Lungs: Other (increased BS right lung field, (+) chest tube) Abdomen: Bowel sounds, Soft Extremities: no Edema Neurological: Sensation intact Skin: no Rash Psych/Mental Status: Mood NL - Procedures Procedures: Procedures Procedure Code Date DRAINAGE OF R PLEURAL CAV WITH DRAIN DEV, PERC APPROACH [id number] 01/29/18 DRAINAGE OF RIGHT LOWER LUNG LOBE, ENDO, DIAGN [id number] 01/29/18 Assessment/Plan - Problem List Patient Problems: All Active Problems RIGHT FACIAL SWELLING AND PAIN (Acute) Nutritional Asmnt/Malnutr-PDOC - Dietary Evaluation Malnutrition Findings (Please click <Entered> for more info): Nutritional Asmnt/Malnutrition Start: 02/03/18 12: 10 Text: Status: Complete Freq: Protocol: Document 02/03/18 12:10 MMULRAUL (Rec: 02/03/18 12:31 [email or web address]- [email or web address]) Nutritional Asmnt/Malnutrition Patient General Information Nutritional Screening Moderate Risk Diagnosis Rt facuial cellulitis, rt pleural effusion Pertinent Medical Hx/Surgical Hx ESRD on dialysis x 7 years, COPD, hyperlipidemia, Type 2 diabetes Subjective Information Per H&P, patient was on peritoneal dialysis up to a few months ago when he was diagnosed with peritonitis ( now on HD TTS). Per nursing notes, pt refusing some medications. Diet education not appropriate at this time. Current Diet Order/ Nutrition Support 60 gm CCHO, 1200 ml fluid restriction Patient / S.O Not Indicated Pertinent Medications lipitor, Sensipar, colace, lasix, Epogen, Megacem abx, Renvela, Vitamin B complex with C Pertinent Labs ((02/02) Cr 4.5, Ca 8.5, albumin 24 Nutritional Hx/Data Height 1.68 m Height (Calculated Centimeters) 167.6 Current Weight (lbs) 79.379 kg Weight (Calculated Kilograms) 79.4 Weight (Calculated Grams) 03410.7 [place] Body Weight 142 % [place] Body Weight 123 Body Mass Index (BMI) 28.2 Recent Weight Change No Weight Status Overweight GI Symptoms GI Symptoms None Last BM 02/02 x 1 Difficult in: None Food Allergies No Cultural/Ethnic/[employer] Belief none indicated Usual diet at home unknown Skin Integrity/Comment: Ba 15, cellulitis facial Current %PO Good (75-100%) Estimated Nutritional Goals BEE in Kcals: Adj wt of IBW Calories/Kcals/Kg 27-32 kcal/kg using 68.2 kg Adj wt Kcals Calculated 7531-5887 kcal/day Protein: Adj wt of IBW Protein g/k.2-1.5 gm/kg (HD) Protein Calculated 80-100 gm/day Fluid: ml Per MD due to HD Nutritional Problem 1. Problem Problem Increased nutrient needs related to Etiology impaired skin integrity/ dialysis aeb Signs/Symptoms: Facial cellulitis and on HD Intervention/Recommendation Comments Consider modifying diet to 2gm sodium. Glucose/HG1AC low, no need for Diabetic restriction . Continue to monitor K and Phosphorus levels and need for Renal diet (not needed at this time.) Consider Prosource with meals for added protein due to cellulitis and HD. Expected Outcomes/Goals Expected Outcomes/Goals oral intake to meet >75% of nutrient needs, nutritino related labs normalize, weight stable.
[2018-02-22] MEDS ORDERED: Mag Sulfate 2gm/50mL Premix 2 GM/50 ML BAG IV ONE (09:29)
--- NOTE | 2018-02-22 10:10 | Infectious Disease Prog Note ---
Infectious Disease Subjective - Review of Systems Service Date: 02/22/18 Subjective: Patient is in ICU. Infectious Disease Objective - Results Result Diagrams: 02/23/18 04:50 02/23/18 04:45 Recent Labs: Laboratory Last Values WBC 11.9 Th/cmm (4.8-10.8) H 02/22/18 04:40 RBC 3.19 Mil/cmm (3.80-5.80) L 02/22/18 04:40 Hgb 9.5 gm/dL (12-16) L 02/22/18 04:40 Hct 29.3 % (41.0-60) L 02/22/18 04:40 MCV 91.9 fl (80-99) 02/22/18 04:40 MCH 29.7 pg (27.0-31.0) 02/22/18 04:40 MCHC Differential 32.3 pg (28.0-36.0) 02/22/18 04:40 RDW 15.8 % (11.5-20.0) 02/22/18 04:40 Plt Count 261 Th/cmm (150-400) 02/22/18 04:40 MPV 6.6 fl 02/22/18 04:40 Neutrophils % 66.4 % (40.0-80.0) 02/22/18 04:40 Lymphocytes % 15.5 % (20.0-50.0) L 02/22/18 04:40 Monocytes % 10.1 % (2.0-10.0) H 02/22/18 04:40 Eosinophils % 6.9 % (0.0-5.0) H 02/22/18 04:40 Basophils % 1.1 % (0.0-2.0) 02/22/18 04:40 ESR 87 mm/hr (0-20) H 01/31/18 04:15 PT 10.2 SECONDS (9.5-11.5) 02/20/18 09:40 INR 0.98 (0.5-1.4) 02/20/18 09:40 PTT (Actin FS) 30.6 SECONDS (26.0-38.0) 02/20/18 09:40 Sodium 136 mEq/L (136-145) 02/22/18 04:40 Potassium 4.8 mEq/L (3.5-5.1) 02/22/18 04:40 Chloride 108 mEq/L (98-107) H 02/22/18 04:40 Carbon Dioxide 23.1 mEq/L (21.0-31.0) 02/22/18 04:40 Anion Gap 9.7 (7.0-16.0) 02/22/18 04:40 BUN 25 mg/dL (7-25) 02/22/18 04:40 Creatinine 5.3 mg/dL (0.7-1.3) H* 02/22/18 04:40 Est GFR ( Amer) 14.1 ml/min (>90) 02/22/18 04:40 Est GFR (Non-Af Amer) 11.6 ml/min 02/22/18 04:40 BUN/Creatinine Ratio 4.7 02/22/18 04:40 Glucose 72 mg/dL (70-105) 02/22/18 04:40 POC Glucose 106 MG/DL (70 - 105) H 02/08/18 12:11 Hemoglobin A1c % 3.5 % (4.0-6.0) L 01/31/18 04:15 Whole Bld Lactic Acid 0.55 mmol/L (0.60-1.99) L 01/29/18 16:42 Calcium 8.5 mg/dL (8.6-10.3) L 02/22/18 04:40 Phosphorus 4.1 mg/dL (2.5-5.0) 01/31/18 04:15 Magnesium 1.7 mg/dL (1.9-2.7) L 02/22/18 04:40 Total Bilirubin 0.4 mg/dL (0.3-1.0) 02/21/18 04:05 AST 15 U/L (13-39) 02/21/18 04:05 ALT 6 U/L (7-52) L 02/21/18 04:05 Alkaline Phosphatase 41 U/L (34-104) 02/21/18 04:05 Creatine Kinase 12 U/L (30-223) L 01/29/18 16:42 Troponin I 0.02 ng/mL (0.01-0.05) 01/29/18 16:42 C-Reactive Protein 11.4 mg/dL (0.0-0.9) H 01/31/18 04:15 Total Protein 5.0 gm/dL (6.0-8.3) L 02/21/18 04:05 Albumin 2.2 gm/dL (4.2-5.5) L 02/21/18 04:05 Globulin 2.8 gm/dL 02/21/18 04:05 Albumin/Globulin Ratio 0.8 (1.0-1.8) L 02/21/18 04:05 Triglycerides 72 mg/dL (<150) 01/31/18 04:15 Cholesterol 97 mg/dL (<200) 01/31/18 04:15 LDL Cholesterol Direct 45 mg/dL (75-193) L 01/31/18 04:15 HDL Cholesterol 36 mg/dL (23-92) 01/31/18 04:15 TSH 2.15 uIU/ml (0.34-5.60) 01/31/18 04:15 PTH Intact 36 pg/mL (15-65) 02/01/18 05:22 Urine Source CLEAN C 02/17/18 16:59 Urine Color YELLOW 02/17/18 16:59 Urine Clarity HAZY (CLEAR) 02/17/18 16:59 Urine pH 8.5 (4.6 - 8.0) 02/17/18 16:59 Ur Specific [place] 1.020 (1.005-1.030) 02/17/18 16:59 Urine Protein >=300 mg/dL (NEGATIVE) 02/17/18 16:59 Urine Glucose (UA) 100 mg/dL (NEGATIVE) H 02/17/18 16:59 Urine Ketones NEGATIVE mg/dL (NEGATIVE) 02/17/18 16:59 Urine Blood LARGE (NEGATIVE) H 02/17/18 16:59 Urine Nitrate NEGATIVE (NEGATIVE) 02/17/18 16:59 Urine Bilirubin NEGATIVE (NEGATIVE) 02/17/18 16:59 Urine Urobilinogen 0.2 E.U./dL (0.2 - 1.0) 02/17/18 16:59 Ur Leukocyte Esterase SMALL (NEGATIVE) H 02/17/18 16:59 Urine RBC 25-50 /hpf (0-5) H 02/17/18 16:59 Urine WBC 6-10 /hpf (0-5) 02/17/18 16:59 Ur Epithelial Cells MODERATE /lpf (FEW) 02/17/18 16:59 Urine Bacteria FEW /hpf (NONE SEEN) 02/17/18 16:59 Fluid Source PLEURAL 02/01/18 11:00 Fluid Color PALE YELLOW 02/01/18 11:00 Fluid Appearance HAZY 02/01/18 11:00 Fluid WBC 149 /cumm 02/01/18 11:00 Fluid RBC 185 /cumm 02/01/18 11:00 Fluid Neutrophils 2 % 02/01/18 11:00 Fluid Lymphocytes 50 % 02/01/18 11:00 Fluid Monocytes 48 % 02/01/18 11:00 Fluid Glucose 75.0 mg/dL 02/01/18 11:00 Fluid Total Protein 2.3 g/dL 02/01/18 11:00 Fluid Amylase 61 U/L 02/01/18 11:00 Random Vancomycin 22.5 ug/mL (5.0-40.0) 02/04/18 05:52 TB (QFT) Gold In Tube Negative (Negative) 02/18/18 19:50 TB Test (QFT) Mitogen 7.52 IU/mL 02/18/18 19:50 TB Test (QFT) Antigen 0.06 IU/mL 02/18/18 19:50 TB Test Antigen - Nil 0.00 IU/mL 02/18/18 19:50 TB Test TB - Nil 0.06 IU/mL 02/18/18 19:50 TB Test (QFT) Interp 02/18/18 19:50 Blood Type O POSITIVE 02/20/18 07:00 Antibody Screen NEGATIVE 02/20/18 07:00 - Physical Exam Vitals and I&O: Vital Signs Temp 97.4 F 02/22/18 05:00 Pulse 75 02/22/18 06:50 Resp 18 02/22/18 06:50 BP 119/69 02/22/18 06:00 Pulse Ox 96 02/22/18 06:50 Intake & Output 02/21/18 02/22/18 02/22/18 18:59 06:59 18:59 Intake Total 1660 200 Output Total 100 20 Balance 1560 180 Weight (lbs) 68.039 kg 68.039 kg Intake: Intake, IV Amount 1000 Sodium Chloride 0.9% 1, 1000 000 ml @ 60 mls/hr IV . [id number] [facility] Rx#:[id number] Oral 660 200 Output: Chest Tube Drainage 100 20 Right Lower Anterior 100 20 Chest Urine 0 0 Other: # Bowel Movements 0 0 Weight Source Bedscale Bedscale Active Medications: Current Medications Acetaminophen (Tylenol) 650 mg PO Q6HR PRN PRN Reason: PAIN Stop: 03/30/18 23:07 Acetaminophen/Hydrocodone Bitart ([place] 5mg/325mg) 2 tab PO Q4H PRN PRN Reason: Pain (Moderate) Stop: 03/30/18 23:16 Last Admin: 02/18/18 22:42 Dose: 2 tab Al Hydrox/Mg Hydrox/Simethicone (Maalox) 30 ml PO Q4H PRN PRN Reason: Heartburn Stop: 04/17/18 22:02 Last Admin: 02/16/18 22:29 Dose: 30 ml Albuterol Sulfate (Albuterol 2.5mg/3ml Neb Ud) 2.5 mg HHN Q1H PRN PRN Reason: Respiratory Distress Stop: 03/31/18 07:59 Last Admin: 02/01/18 15:33 Dose: 2.5 mg Albuterol/Ipratropium (Duoneb Neb) 3 ml HHN Q4HRT [facility] Stop: 03/31/18 14:59 Last Admin: 02/22/18 06:50 Dose: 3 ml Atorvastatin Calcium (Lipitor) 40 mg PO HS [facility] Stop: 03/31/18 20:59 Last Admin: 02/21/18 20:26 Dose: 40 mg Cinacalcet (Sensipar) 30 mg PO DAILY [facility] Stop: 03/31/18 08:59 Last Admin: 02/21/18 11:04 Dose: 30 mg Diclofenac Sodium (Voltaren) 50 mg PO BID [facility] Stop: 04/01/18 08:59 Last Admin: 02/21/18 16:42 Dose: 50 mg Docusate Sodium (Colace) 100 mg PO DAILY [facility] Stop: 03/31/18 08:59 Last Admin: 02/21/18 08:16 Dose: 100 mg Famotidine (Pepcid) 20 mg PO DAILY [facility] Stop: 04/18/18 08:59 Last Admin: 02/21/18 08:18 Dose: 20 mg Hydromorphone HCl (Dilaudid) 2 mg IVP Q4HR PRN PRN Reason: chest pain Stop: 04/21/18 13:55 Last Admin: 02/21/18 10:57 Dose: 2 mg Sodium Chloride (Nacl 0.9%) 1,000 mls @ 60 mls/hr IV .[id number] [facility] Stop: 02/26/18 19:47 Last Admin: 02/21/18 16:43 Dose: 60 mls/hr Magnesium Sulfate (Magnesium Sulfate Premix) 2 gm in 50 mls @ 25 mls/hr IV X1 ONE Stop: 02/22/18 11:28 Ipratropium [place] (Atrovent Neb 0.5mg/2.5ml) 0.5 mg HHN Q6HRT [facility] Stop: 03/31/18 12:59 Last Admin: 02/22/18 03:14 Dose: Not Given Lactobacillus Rhamnosus (Culturelle 15b) 1 each PO DAILY [facility] Stop: 04/15/18 08:59 Last Admin: 02/21/18 08:18 Dose: 1 each Levofloxacin (Levaquin) 250 mg PO DAILY [facility] Stop: 04/19/18 16:59 Last Admin: 02/21/18 08:18 Dose: 250 mg Megestrol Acetate (Megace) 400 mg PO DAILY [facility]; Protocol Stop: 03/31/18 08:59 Last Admin: 02/21/18 08:17 Dose: 400 mg Midodrine (Proamatine) 10 mg PO TID [facility] Stop: 04/16/18 00:29 Last Admin: 02/21/18 20:26 Dose: 10 mg Miscellaneous (Clinical Monitoring) 1 ea DAILY PRN PRN Reason: RENAL Stop: 04/08/18 08:30 Miscellaneous (Probiotic Screen) 1 [facility] PRN PRN PRN Reason: PROTOCOL Stop: 04/14/18 09:44 Sevelamer Carbonate (Renvela) 800 mg PO TID [facility] Stop: 03/30/18 23:14 Last Admin: 02/21/18 20:26 Dose: 800 mg Vitamin B Complex/Vit C/Folic Acid (Vitamin B Complex W/Vitamin C) 1 tab PO DAILY [facility] Stop: 03/31/18 08:59 Last Admin: 02/21/18 08:17 Dose: 1 tab General: no acute distress, cachectic HEENT: atraumatic, normocephalic, PERRLA, EOMI Neck: supple, no thyromegaly Cardiovascular: S1S2, regular Lungs: rhonchi, other (right chest tube) Abdomen: soft, no tender, no distended, no mass Extremities: no cyanosis, no clubbing, no edema Neurological: awake, alert, oriented Skin: intact - Procedures Procedures: Procedures Procedure Code Date DRAINAGE OF R PLEURAL CAV WITH DRAIN DEV, PERC APPROACH [id number] 01/29/18 DRAINAGE OF RIGHT LOWER LUNG LOBE, ENDO, DIAGN [id number] 01/29/18 Infectious Disease Assmt/Plan - Problem List Patient Problems: All Active Problems RIGHT FACIAL SWELLING AND PAIN (Acute) - Assessment Assessment: 1. Pleural effusion with lymphocyte predominance. Empyema culture growing Pseudomonas. It is not clear whether it is from the bronchoalveolar lavage are from the pleural fluid. The differential includes malignant pleural effusion, versus tuberculous empyema. 2. Pseudomonas pneumonia. 3. Chronic kidney disease stage 5, on hemodialysis. 4. Diabetes mellitus type 2. 5. Chronic obstructive pulmonary disease. 6. Hyperlipidemia. 7. Urinary tract infection, treated. 8. Hyperlipidemia. - Plan Plan: Continue the same treatment. Nutritional Asmnt/Malnutr-PDOC - Dietary Evaluation Malnutrition Findings (Please click <Entered> for more info): Nutritional Asmnt/Malnutrition Start: 02/03/18 12: 10 Text: Status: Complete Freq: Protocol: Document 02/03/18 12:10 RICO (Rec: 02/03/18 12:31 [id number] [email or web address]) Nutritional Asmnt/Malnutrition Patient General Information Nutritional Screening Moderate Risk Diagnosis Rt facuial cellulitis, rt pleural effusion Pertinent Medical Hx/Surgical Hx ESRD on dialysis x 7 years, COPD, hyperlipidemia, Type 2 diabetes Subjective Information Per H&P, patient was on peritoneal dialysis up to a few months ago when he was diagnosed with peritonitis ( now on HD TTS). Per nursing notes, pt refusing some medications. Diet education not appropriate at this time. Current Diet Order/ Nutrition Support 60 gm CCHO, 1200 ml fluid restriction Patient / S.O Not Indicated Pertinent Medications lipitor, Sensipar, colace, lasix, Epogen, Megacem abx, Renvela, Vitamin B complex with C Pertinent Labs ((02/02) Cr 4.5, Ca 8.5, albumin 24 Nutritional Hx/Data Height 1.68 m Height (Calculated Centimeters) 167.6 Current Weight (lbs) 79.379 kg Weight (Calculated Kilograms) 79.4 Weight (Calculated Grams) 52309.7 Ruffin Body Weight 142 % Ruffin Body Weight 123 Body Mass Index (BMI) 28.2 Recent Weight Change No Weight Status Overweight GI Symptoms GI Symptoms None Last BM 02/02 x 1 Difficult in: None Food Allergies No Cultural/Ethnic/Religion Belief none indicated Usual diet at home unknown Skin Integrity/Comment: Ba 15, cellulitis facial Current %PO Good (75-100%) Estimated Nutritional Goals BEE in Kcals: Adj wt of IBW Calories/Kcals/Kg 27-32 kcal/kg using 68.2 kg Adj wt Kcals Calculated 7048-0740 kcal/day Protein: Adj wt of IBW Protein g/k.2-1.5 gm/kg (HD) Protein Calculated 80-100 gm/day Fluid: ml Per MD due to HD Nutritional Problem 1. Problem Problem Increased nutrient needs related to Etiology impaired skin integrity/ dialysis aeb Signs/Symptoms: Facial cellulitis and on HD Intervention/Recommendation Comments Consider modifying diet to 2gm sodium. Glucose/HG1AC low, no need for Diabetic restriction . Continue to monitor K and Phosphorus levels and need for Renal diet (not needed at this time.) Consider Prosource with meals for added protein due to cellulitis and HD. Expected Outcomes/Goals Expected Outcomes/Goals oral intake to meet >75% of nutrient needs, nutritino related labs normalize, weight stable.
[2018-02-22] MEDS: Lactobacillus Rhamnosus GG 15 Billion CFU CAP.SPRINK PO SCH (14:14)
[2018-02-22] MEDS: Vitamin B Complex w/Vitamin C Tab PO SCH (14:16)
--- NOTE | 2018-02-22 16:23 | Pathology Report ---
[id number] Collection date: 02/20/2018 Surgeon: Dr. Rd Arriola Specimen Description: 1. Visceral pleura decortication 2. Parietal pleura decortication Gross Description: Part I: Received in formalin are multiple red-galvan fibromembranous soft tissue fragments ranging from 1.5 to 8.5 cm in greatest dimension with a thickness that ranges from 0.2 to 0.4 cm. Sectioning shows no mass lesions with focal areas of fibrous adhesions attached to the irregular surface. Production Worker sections are submitted in three cassettes labeled A1 to A3. After review of the initial histologic sections, additional tissue is submitted in cassettes A4 to A8. Gross Description: Part II: Received in formalin are multiple red-galvan fibromembranous soft tissue fragments showing areas of reddish brown discoloration and ranging from 2.0 to 10.5 cm in greatest dimension with a thickness that ranges from 0.2 to 0.4 cm. Sectioning shows no mass lesions with focal areas of fibrous adhesions appreciated. Production Worker sections are submitted in three cassettes labeled B1 to B3. After review of the initial sections, additional tissue is submitted in cassettes B4 to B8. Microscopic Description: Part I: The histologic sections show fibrofatty pleura with chronic inflammation consisting of increased numbers of lymphocytes and plasma cells. Several small lymphoid nodules are also identified in areas where the lymphoid infiltrate is particularly dense. Areas of hemorrhage and fibrosis are also appreciated consistent with adhesions. There are no granulomas appreciated. Diagnosis: Part I: Chronic fibrosing pleuritis, visceral pleura. Microscopic Description: Part II: The histologic sections show fibrous pleural tissue with chronic inflammation consisting of increased numbers of lymphocytes and plasma cells. There are also areas of hemorrhage and fibrous adhesions present. Small lymphoid aggregates are also appreciated in areas where the lymphoid infiltrate is particularly dense. There are no granulomas identified. Diagnosis: Part II: Chronic fibrosing pleuritis, parietal pleura. Comment: Because of the relatively dense lymphoid infiltrate, this case was sent out for consultation and further studies that included immunohistochemistry and AFB stains (see attached report# [id number]/ [id number] from Dr. Vinod Rosado of [employer]). The results of this specialized testing show no evidence for AFB and no evidence for malignancy. Recommend clinical follow-up and comparison with the results of microbiology culture. JOB# [id number] [facility]
--- NOTE | 2018-02-22 18:35 | General Progress Note ---
Subjective - Review of Systems Service Date: 02/22/18 Subjective: more alert, verbal, comfortable Objective - Results Result Diagrams: 02/22/18 04:40 02/22/18 04:40 Recent Labs: Laboratory Last Values WBC 11.9 Th/cmm (4.8-10.8) H 02/22/18 04:40 RBC 3.19 Mil/cmm (3.80-5.80) L 02/22/18 04:40 Hgb 9.5 gm/dL (12-16) L 02/22/18 04:40 Hct 29.3 % (41.0-60) L 02/22/18 04:40 MCV 91.9 fl (80-99) 02/22/18 04:40 MCH 29.7 pg (27.0-31.0) 02/22/18 04:40 MCHC Differential 32.3 pg (28.0-36.0) 02/22/18 04:40 RDW 15.8 % (11.5-20.0) 02/22/18 04:40 Plt Count 261 Th/cmm (150-400) 02/22/18 04:40 MPV 6.6 fl 02/22/18 04:40 Neutrophils % 66.4 % (40.0-80.0) 02/22/18 04:40 Lymphocytes % 15.5 % (20.0-50.0) L 02/22/18 04:40 Monocytes % 10.1 % (2.0-10.0) H 02/22/18 04:40 Eosinophils % 6.9 % (0.0-5.0) H 02/22/18 04:40 Basophils % 1.1 % (0.0-2.0) 02/22/18 04:40 ESR 87 mm/hr (0-20) H 01/31/18 04:15 PT 10.2 SECONDS (9.5-11.5) 02/20/18 09:40 INR 0.98 (0.5-1.4) 02/20/18 09:40 PTT (Actin FS) 30.6 SECONDS (26.0-38.0) 02/20/18 09:40 Sodium 136 mEq/L (136-145) 02/22/18 04:40 Potassium 4.8 mEq/L (3.5-5.1) 02/22/18 04:40 Chloride 108 mEq/L (98-107) H 02/22/18 04:40 Carbon Dioxide 23.1 mEq/L (21.0-31.0) 02/22/18 04:40 Anion Gap 9.7 (7.0-16.0) 02/22/18 04:40 BUN 25 mg/dL (7-25) 02/22/18 04:40 Creatinine 5.3 mg/dL (0.7-1.3) H* 02/22/18 04:40 Est GFR ( Amer) 14.1 ml/min (>90) 02/22/18 04:40 Est GFR (Non-Af Amer) 11.6 ml/min 02/22/18 04:40 BUN/Creatinine Ratio 4.7 02/22/18 04:40 Glucose 72 mg/dL (70-105) 02/22/18 04:40 POC Glucose 106 MG/DL (70 - 105) H 02/08/18 12:11 Hemoglobin A1c % 3.5 % (4.0-6.0) L 01/31/18 04:15 Whole Bld Lactic Acid 0.55 mmol/L (0.60-1.99) L 01/29/18 16:42 Calcium 8.5 mg/dL (8.6-10.3) L 02/22/18 04:40 Phosphorus 4.1 mg/dL (2.5-5.0) 01/31/18 04:15 Magnesium 1.7 mg/dL (1.9-2.7) L 02/22/18 04:40 Total Bilirubin 0.4 mg/dL (0.3-1.0) 02/21/18 04:05 AST 15 U/L (13-39) 02/21/18 04:05 ALT 6 U/L (7-52) L 02/21/18 04:05 Alkaline Phosphatase 41 U/L (34-104) 02/21/18 04:05 Creatine Kinase 12 U/L (30-223) L 01/29/18 16:42 Troponin I 0.02 ng/mL (0.01-0.05) 01/29/18 16:42 C-Reactive Protein 11.4 mg/dL (0.0-0.9) H 01/31/18 04:15 Total Protein 5.0 gm/dL (6.0-8.3) L 02/21/18 04:05 Albumin 2.2 gm/dL (4.2-5.5) L 02/21/18 04:05 Globulin 2.8 gm/dL 02/21/18 04:05 Albumin/Globulin Ratio 0.8 (1.0-1.8) L 02/21/18 04:05 Triglycerides 72 mg/dL (<150) 01/31/18 04:15 Cholesterol 97 mg/dL (<200) 01/31/18 04:15 LDL Cholesterol Direct 45 mg/dL (75-193) L 01/31/18 04:15 HDL Cholesterol 36 mg/dL (23-92) 01/31/18 04:15 TSH 2.15 uIU/ml (0.34-5.60) 01/31/18 04:15 PTH Intact 36 pg/mL (15-65) 02/01/18 05:22 Urine Source CLEAN C 02/17/18 16:59 Urine Color YELLOW 02/17/18 16:59 Urine Clarity HAZY (CLEAR) 02/17/18 16:59 Urine pH 8.5 (4.6 - 8.0) 02/17/18 16:59 Ur Specific [place] 1.020 (1.005-1.030) 02/17/18 16:59 Urine Protein >=300 mg/dL (NEGATIVE) 02/17/18 16:59 Urine Glucose (UA) 100 mg/dL (NEGATIVE) H 02/17/18 16:59 Urine Ketones NEGATIVE mg/dL (NEGATIVE) 02/17/18 16:59 Urine Blood LARGE (NEGATIVE) H 02/17/18 16:59 Urine Nitrate NEGATIVE (NEGATIVE) 02/17/18 16:59 Urine Bilirubin NEGATIVE (NEGATIVE) 02/17/18 16:59 Urine Urobilinogen 0.2 E.U./dL (0.2 - 1.0) 02/17/18 16:59 Ur Leukocyte Esterase SMALL (NEGATIVE) H 02/17/18 16:59 Urine RBC 25-50 /hpf (0-5) H 02/17/18 16:59 Urine WBC 6-10 /hpf (0-5) 02/17/18 16:59 Ur Epithelial Cells MODERATE /lpf (FEW) 02/17/18 16:59 Urine Bacteria FEW /hpf (NONE SEEN) 02/17/18 16:59 Fluid Source PLEURAL 02/01/18 11:00 Fluid Color PALE YELLOW 02/01/18 11:00 Fluid Appearance HAZY 02/01/18 11:00 Fluid WBC 149 /cumm 02/01/18 11:00 Fluid RBC 185 /cumm 02/01/18 11:00 Fluid Neutrophils 2 % 02/01/18 11:00 Fluid Lymphocytes 50 % 02/01/18 11:00 Fluid Monocytes 48 % 02/01/18 11:00 Fluid Glucose 75.0 mg/dL 02/01/18 11:00 Fluid Total Protein 2.3 g/dL 02/01/18 11:00 Fluid Amylase 61 U/L 02/01/18 11:00 Random Vancomycin 22.5 ug/mL (5.0-40.0) 02/04/18 05:52 TB (QFT) Gold In Tube Negative (Negative) 02/18/18 19:50 TB Test (QFT) Mitogen 7.52 IU/mL 02/18/18 19:50 TB Test (QFT) Antigen 0.06 IU/mL 02/18/18 19:50 TB Test Antigen - Nil 0.00 IU/mL 02/18/18 19:50 TB Test TB - Nil 0.06 IU/mL 02/18/18 19:50 TB Test (QFT) Interp 02/18/18 19:50 Blood Type O POSITIVE 02/20/18 07:00 Antibody Screen NEGATIVE 02/20/18 07:00 - Physical Exam Vitals and I&O: Vital Signs Temp 98.3 F 02/22/18 12:00 Pulse 82 02/22/18 14:18 Resp 18 02/22/18 14:18 BP 148/72 02/22/18 13:00 Pulse Ox 100 02/22/18 18:00 Intake & Output 02/21/18 02/22/18 02/22/18 18:59 06:59 18:59 Intake Total 1660 200 600 Output Total 175 54 3748 Balance 1560 180 -1210 Weight (lbs) 68.039 kg 68.039 kg 68.039 kg Intake: Intake, IV Amount 1000 Sodium Chloride 0.9% 1, 1000 000 ml @ 60 mls/hr IV . [id number] [facility] Rx#:[id number] Oral 660 200 600 Output: Chest Tube Drainage 100 20 10 Right Lower Anterior 100 20 10 Chest Urine 0 0 Hemodialysis 1800 Other: # Bowel Movements 0 0 Weight Source Bedscale Bedscale Bedscale Active Medications: Current Medications Acetaminophen (Tylenol) 650 mg PO Q6HR PRN PRN Reason: PAIN Stop: 03/30/18 23:07 Acetaminophen/Hydrocodone Bitart ([place] 5mg/325mg) 2 tab PO Q4H PRN PRN Reason: Pain (Moderate) Stop: 03/30/18 23:16 Last Admin: 02/18/18 22:42 Dose: 2 tab Al Hydrox/Mg Hydrox/Simethicone (Maalox) 30 ml PO Q4H PRN PRN Reason: Heartburn Stop: 04/17/18 22:02 Last Admin: 02/16/18 22:29 Dose: 30 ml Albuterol Sulfate (Albuterol 2.5mg/3ml Neb Ud) 2.5 mg HHN Q1H PRN PRN Reason: Respiratory Distress Stop: 03/31/18 07:59 Last Admin: 02/01/18 15:33 Dose: 2.5 mg Albuterol/Ipratropium (Duoneb Neb) 3 ml HHN Q4HRT [facility] Stop: 03/31/18 14:59 Last Admin: 02/22/18 14:16 Dose: Not Given Atorvastatin Calcium (Lipitor) 40 mg PO HS [facility] Stop: 03/31/18 20:59 Last Admin: 02/21/18 20:26 Dose: 40 mg Cinacalcet (Sensipar) 30 mg PO DAILY [facility] Stop: 03/31/18 08:59 Last Admin: 02/22/18 14:13 Dose: Not Given Diclofenac Sodium (Voltaren) 50 mg PO BID [facility] Stop: 04/01/18 08:59 Last Admin: 02/22/18 18:03 Dose: 50 mg Docusate Sodium (Colace) 100 mg PO DAILY [facility] Stop: 03/31/18 08:59 Last Admin: 02/22/18 14:14 Dose: Not Given Famotidine (Pepcid) 20 mg PO DAILY [facility] Stop: 04/18/18 08:59 Last Admin: 02/22/18 14:14 Dose: Not Given Hydromorphone HCl (Dilaudid) 2 mg IVP Q4HR PRN PRN Reason: chest pain Stop: 04/21/18 13:55 Last Admin: 02/21/18 10:57 Dose: 2 mg Sodium Chloride (Nacl 0.9%) 1,000 mls @ 60 mls/hr IV .[id number] [facility] Stop: 02/26/18 19:47 Last Admin: 02/21/18 16:43 Dose: 60 mls/hr Ipratropium [place] (Atrovent Neb 0.5mg/2.5ml) 0.5 mg HHN Q6HRT [facility] Stop: 03/31/18 12:59 Last Admin: 02/22/18 14:16 Dose: Not Given Lactobacillus Rhamnosus (Culturelle 15b) 1 each PO DAILY [facility] Stop: 04/15/18 08:59 Last Admin: 02/22/18 14:14 Dose: Not Given Levofloxacin (Levaquin) 250 mg PO DAILY [facility] Stop: 04/19/18 16:59 Last Admin: 02/22/18 09:00 Dose: Not Given Megestrol Acetate (Megace) 400 mg PO DAILY [facility]; Protocol Stop: 03/31/18 08:59 Last Admin: 02/22/18 14:14 Dose: Not Given Midodrine (Proamatine) 10 mg PO TID [facility] Stop: 04/16/18 00:29 Last Admin: 02/22/18 14:15 Dose: Not Given Miscellaneous (Clinical Monitoring) 1 ea [facility] DAILY PRN PRN Reason: RENAL Stop: 04/08/18 08:30 Miscellaneous (Probiotic Screen) 1 [facility] PRN PRN PRN Reason: PROTOCOL Stop: 04/14/18 09:44 Sevelamer Carbonate (Renvela) 800 mg PO TID [facility] Stop: 03/30/18 23:14 Last Admin: 02/22/18 14:16 Dose: Not Given Vitamin B Complex/Vit C/Folic Acid (Vitamin B Complex W/Vitamin C) 1 tab PO DAILY [facility] Stop: 03/31/18 08:59 Last Admin: 02/22/18 14:16 Dose: Not Given General: Alert, Oriented x3, Cooperative, No acute distress HEENT: Atraumatic, PERRLA, EOMI, Mucous membr. moist/pink Neck: Supple, +2 carotid pulse wo bruit Cardiovascular: Regular rate, Normal S1, Normal S2 Lungs: Other (increased BS right lung field, (+) chest tube) Abdomen: Bowel sounds, Soft Extremities: no Edema Neurological: Sensation intact Skin: no Rash Psych/Mental Status: Mood NL - Procedures Procedures: Procedures Procedure Code Date DRAINAGE OF R PLEURAL CAV WITH DRAIN DEV, PERC APPROACH [id number] 01/29/18 DRAINAGE OF RIGHT LOWER LUNG LOBE, ENDO, DIAGN [id number] 01/29/18 Assessment/Plan - Problem List Patient Problems: All Active Problems RIGHT FACIAL SWELLING AND PAIN (Acute) - Assessment Assessment: ESRD on HD Right facial cellulitis Right lung opacification 2/2 effusion Cx UTI T2DM Anemia of CKD right PTX s/p chest tube S/P right lung surgery - Plan Plan: Lab - Result Diagrams 01/31/18 04:15 01/31/18 04:15 Current Medications Acetaminophen (Tylenol) 650 mg PO Q6HR PRN PRN Reason: PAIN Stop: 03/30/18 23:07 Acetaminophen/Hydrocodone Bitart ([place] 5mg/325mg) 2 tab PO Q4H PRN PRN Reason: Pain (Moderate) Stop: 03/30/18 23:16 Last Admin: 01/29/18 23:29 Dose: 2 tab Acetylcysteine (Mucomyst 20%) 2 ml HHN Q4HRT [facility] Stop: 03/31/18 14:59 Last Admin: 01/31/18 11:27 Dose: 2 ml Albuterol Sulfate (Albuterol 2.5mg/3ml Neb Ud) 2.5 mg HHN Q1H PRN PRN Reason: Respiratory Distress Stop: 03/31/18 07:59 Albuterol/Ipratropium (Duoneb Neb) 3 ml HHN Q4HRT [facility] Stop: 03/31/18 14:59 Last Admin: 01/31/18 11:27 Dose: 3 ml Atorvastatin Calcium (Lipitor) 40 mg PO HS [facility] Stop: 03/31/18 20:59 Last Admin: 01/30/18 21:19 Dose: 40 mg Cinacalcet (Sensipar) 30 mg PO DAILY [facility] Stop: 03/31/18 08:59 Last Admin: 01/31/18 08:28 Dose: Not Given Diclofenac Sodium (Voltaren) 50 mg PO BID [facility] Stop: 04/01/18 08:59 Last Admin: 05/09/18 08:25 Dose: 50 mg Docusate Sodium (Colace) 100 mg PO DAILY [facility] Stop: 03/31/18 08:59 Last Admin: 01/31/18 08:26 Dose: 100 mg Epoetin Vishal (Epogen) 10,000 units SUBQ MWF@1600 [facility] Stop: 04/01/18 15:59 Furosemide (Lasix) 40 mg PO DAILY [facility] Stop: 03/31/18 08:59 Last Admin: 01/31/18 08:26 Dose: 40 mg Heparin Sodium (Porcine) (Heparin) 5,000 units IVP ONCE@2100 [facility] Stop: 01/31/18 21:01 Last Admin: 01/30/18 21:18 Dose: 5,000 units Ceftriaxone Sodium 1 gm/ (Sodium Chloride) 50 mls @ 100 mls/hr IV Q24HR [facility] Stop: 03/31/18 18:59 Last Infusion: 01/30/18 21:50 Dose: Infused Ipratropium [place] (Atrovent Neb 0.5mg/2.5ml) 0.5 mg HHN Q6HRT [facility] Stop: 03/31/18 12:59 Last Admin: 01/31/18 00:57 Dose: Not Given Lactobacillus Rhamnosus (Culturelle 15b) 1 each PO DAILY [facility] Stop: 03/30/18 23:14 Last Admin: 01/31/18 08:27 Dose: 1 each Megestrol Acetate (Megace) 400 mg PO DAILY [facility] PRN Reason: Protocol Stop: 03/31/18 08:59 Last Admin: 01/31/18 09:31 Dose: Not Given Metoprolol Tartrate (Lopressor) 50 mg PO BID [facility] Stop: 03/30/18 23:14 Last Admin: 01/31/18 08:27 Dose: 50 mg Midodrine (Proamatine) 5 mg PO TID PRN PRN Reason: HYPOTENSION Stop: 03/30/18 23:07 Miscellaneous (Vancomycin Iv Per Pharmacy) 1 ea MC PRN [facility] Stop: 03/30/18 21:44 Morphine Sulfate (Morphine) 1 mg IVP Q4HR PRN PRN Reason: Pain (Severe) Stop: 03/30/18 23:17 Last Admin: 01/31/18 08:17 Dose: 1 mg Sevelamer Carbonate (Renvela) 800 mg PO TID [facility] Stop: 03/30/18 23:14 Last Admin: 01/31/18 08:28 Dose: 800 mg Vitamin B Complex/Vit C/Folic Acid (Vitamin B Complex W/Vitamin C) 1 tab PO DAILY [facility] Stop: 03/31/18 08:59 Last Admin: 01/31/18 08:28 Dose: 1 t Lab - Result Diagrams 02/22/18 04:40 02/22/18 04:40 continue Rocephin WBC up to 11.9 bronchoscopy: no endobronchial lesion CXR: no PTX, decreased right lung volume/ PNA/effusion surgery revealed trapped lung for HD today Nutritional Asmnt/Malnutr-PDOC - Dietary Evaluation Malnutrition Findings (Please click <Entered> for more info): Nutritional Asmnt/Malnutrition Start: 02/03/18 12: 10 Text: Status: Complete Freq: Protocol: Document 02/03/18 12:10 [email or web address] (Rec: 02/03/18 12:31 [place]- [email or web address]) Nutritional Asmnt/Malnutrition Patient General Information Nutritional Screening Moderate Risk Diagnosis Rt facuial cellulitis, rt pleural effusion Pertinent Medical Hx/Surgical Hx ESRD on dialysis x 7 years, COPD, hyperlipidemia, Type 2 diabetes Subjective Information Per H&P, patient was on peritoneal dialysis up to a few months ago when he was diagnosed with peritonitis ( now on HD TTS). Per nursing notes, pt refusing some medications. Diet education not appropriate at this time. Current Diet Order/ Nutrition Support 60 gm CCHO, 1200 ml fluid restriction Patient / S.O Not Indicated Pertinent Medications lipitor, Sensipar, colace, lasix, Epogen, Megacem abx, Renvela, Vitamin B complex with C Pertinent Labs ((02/02) Cr 4.5, Ca 8.5, albumin 24 Nutritional Hx/Data Height 1.68 m Height (Calculated Centimeters) 167.6 Current Weight (lbs) 79.379 kg Weight (Calculated Kilograms) 79.4 Weight (Calculated Grams) 60589.7 [place] Body Weight 142 % [place] Body Weight 123 Body Mass Index (BMI) 28.2 Recent Weight Change No Weight Status Overweight GI Symptoms GI Symptoms None Last BM 02/02 x 1 Difficult in: None Food Allergies No Cultural/Ethnic/Taoist Belief none indicated Usual diet at home unknown Skin Integrity/Comment: Ba 15, cellulitis facial Current %PO Good (75-100%) Estimated Nutritional Goals BEE in Kcals: Adj wt of IBW Calories/Kcals/Kg 27-32 kcal/kg using 68.2 kg Adj wt Kcals Calculated 1968-4855 kcal/day Protein: Adj wt of IBW Protein g/k.2-1.5 gm/kg (HD) Protein Calculated 80-100 gm/day Fluid: ml Per MD due to HD Nutritional Problem 1. Problem Problem Increased nutrient needs related to Etiology impaired skin integrity/ dialysis aeb Signs/Symptoms: Facial cellulitis and on HD Intervention/Recommendation Comments Consider modifying diet to 2gm sodium. Glucose/HG1AC low, no need for Diabetic restriction . Continue to monitor K and Phosphorus levels and need for Renal diet (not needed at this time.) Consider Prosource with meals for added protein due to cellulitis and HD. Expected Outcomes/Goals Expected Outcomes/Goals oral intake to meet >75% of nutrient needs, nutritino related labs normalize, weight stable.
[2018-02-22] MEDS: HYDROmorphone 2 mg/mL 1mL Vial IVP PRN (21:58)
[2018-02-23] MEDS: Ipratropium Neb 0.5 mg/2.5 mL UD HHN SCH ×3 (00:15→14:22)
[2018-02-23] MEDS: Albuterol/Ipratropium Neb 3 ML AERS HHN SCH ×7 (02:00→23:53)
[2018-02-23] MEDS: HYDROmorphone 2 mg/mL 1mL Vial IVP PRN (04:55)
[2018-02-23 05:10] LABS: BASOPHILE ABSOLUTE 0.1 Th/cumm (0-0.2); HEMATOCRIT 27.6 % (41.0-60); MEAN CELL VOLUME 91.5 fl (80-99); MEAN CORPUSCULAR HEMOGLOBIN 29.6 pg (27.0-31.0); MONOCYTE ABSOLUTE 1.1 Th/cmm (0.3-1.0); RED BLOOD COUNT 3.02 Mil/cmm (3.80-5.80); WHITE BLOOD COUNT 9.6 Th/cmm (4.8-10.8)
[2018-02-23 05:23] LABS: % BASOPHILS 0.8 % (0.0-2.0); % EOSINOPHILS 7.4 % (0.0-5.0); % LYMPHOCYTES 18.3 % (20.0-50.0); % MONOCYTES 11.5 % (2.0-10.0); EOSINOPHILE ABSOLUTE 0.7 Th/cmm (0.1-0.4); LYMPHOCYTE ABSOLUTE 1.8 Th/cmm (1.5-3.0); MEAN CORPUSCULAR HGB CONC 32.4 pg (28.0-36.0); MEAN PLATELET VOLUME 6.6 fl; NEUTROPHILE ABSOLUTE 5.9 Th/cmm (1.8-8.0); PLATELET COUNT 238 Th/cmm (150-400); RED CELL DISTRIBUTION WIDTH 15.6 % (11.5-20.0)
[2018-02-23 05:36] LABS: ALB/GLOB RATIO 0.7 (1.0-1.8); ALBUMIN 2.1 gm/dL (4.2-5.5); ANION GAP 9.3 (7.0-16.0); BILIRUBIN,TOTAL 0.4 mg/dL (0.3-1.0); CALCIUM SERUM 8.4 mg/dL (8.6-10.3); CARBON DIOXIDE 24.4 mEq/L (21.0-31.0); CREATININE - SERUM 3.5 mg/dL (0.7-1.3); GFR AFRICAN-AMERICAN 22.7 ml/min (>90); GFR NON AFRICAN-AMERICAN 18.8 ml/min; POTASSIUM SERUM 3.7 mEq/L (3.5-5.1); TOTAL PROTEIN,SERUM 5.1 gm/dL (6.0-8.3)
[2018-02-23] MEDS: Vitamin B Complex w/Vitamin C Tab PO SCH (08:34)
[2018-02-23] MEDS: Lactobacillus Rhamnosus GG 15 Billion CFU CAP.SPRINK PO SCH (08:35)
--- NOTE | 2018-02-23 09:13 | Diagnostic Imaging Report ---
CHEST X-RAY: AP view INDICATION: Shortness of breath COMPARISON: 02/22/2018 FINDINGS: Support devices are stable. Right effusion is again noted with right lung infiltrates. There is likely a right apical pneumothorax. Mild cardiomegaly is noted. IMPRESSION: Persistent right effusion and right lung infiltrates. There is likely a right apical pneumothorax. Right chest tube is seen along the right upper hemithorax.
[2018-02-23] MEDS ORDERED: Cefepime 1 GM in Sodium Chloride 0.9% 50 ML IV SCH (10:30)
--- NOTE | 2018-02-23 11:32 | General Progress Note ---
Subjective - Review of Systems Service Date: 02/23/18 Events since last encounter: drained 150 serous fluid last night lung areation improving Objective - Results Result Diagrams: 02/23/18 04:50 02/23/18 04:45 Recent Labs: Laboratory Last Values WBC 9.6 Th/cmm (4.8-10.8) 02/23/18 04:50 RBC 3.02 Mil/cmm (3.80-5.80) L 02/23/18 04:50 Hgb 9.0 gm/dL (12-16) L 02/23/18 04:50 Hct 27.6 % (41.0-60) L 02/23/18 04:50 MCV 91.5 fl (80-99) 02/23/18 04:50 MCH 29.6 pg (27.0-31.0) 02/23/18 04:50 MCHC Differential 32.4 pg (28.0-36.0) 02/23/18 04:50 RDW 15.6 % (11.5-20.0) 02/23/18 04:50 Plt Count 238 Th/cmm (150-400) 02/23/18 04:50 MPV 6.6 fl 02/23/18 04:50 Neutrophils % 62.0 % (40.0-80.0) 02/23/18 04:50 Lymphocytes % 18.3 % (20.0-50.0) L 02/23/18 04:50 Monocytes % 11.5 % (2.0-10.0) H 02/23/18 04:50 Eosinophils % 7.4 % (0.0-5.0) H 02/23/18 04:50 Basophils % 0.8 % (0.0-2.0) 02/23/18 04:50 ESR 87 mm/hr (0-20) H 01/31/18 04:15 PT 10.2 SECONDS (9.5-11.5) 02/20/18 09:40 INR 0.98 (0.5-1.4) 02/20/18 09:40 PTT (Actin FS) 30.6 SECONDS (26.0-38.0) 02/20/18 09:40 Sodium 137 mEq/L (136-145) 02/23/18 04:45 Potassium 3.7 mEq/L (3.5-5.1) 02/23/18 04:45 Chloride 107 mEq/L (98-107) 02/23/18 04:45 Carbon Dioxide 24.4 mEq/L (21.0-31.0) 02/23/18 04:45 Anion Gap 9.3 (7.0-16.0) 02/23/18 04:45 BUN 14 mg/dL (7-25) 02/23/18 04:45 Creatinine 3.5 mg/dL (0.7-1.3) H 02/23/18 04:45 Est GFR ( Amer) 22.7 ml/min (>90) 02/23/18 04:45 Est GFR (Non-Af Amer) 18.8 ml/min 02/23/18 04:45 BUN/Creatinine Ratio 4.0 02/23/18 04:45 Glucose 78 mg/dL (70-105) 02/23/18 04:45 POC Glucose 106 MG/DL (70 - 105) H 02/08/18 12:11 Hemoglobin A1c % 3.5 % (4.0-6.0) L 01/31/18 04:15 Whole Bld Lactic Acid 0.55 mmol/L (0.60-1.99) L 01/29/18 16:42 Calcium 8.4 mg/dL (8.6-10.3) L 02/23/18 04:45 Phosphorus 4.1 mg/dL (2.5-5.0) 01/31/18 04:15 Magnesium 2.0 mg/dL (1.9-2.7) 02/23/18 04:45 Total Bilirubin 0.4 mg/dL (0.3-1.0) 02/23/18 04:45 AST 13 U/L (13-39) 02/23/18 04:45 ALT 6 U/L (7-52) L 02/23/18 04:45 Alkaline Phosphatase 59 U/L (34-104) 02/23/18 04:45 Creatine Kinase 12 U/L (30-223) L 01/29/18 16:42 Troponin I 0.02 ng/mL (0.01-0.05) 01/29/18 16:42 C-Reactive Protein 11.4 mg/dL (0.0-0.9) H 01/31/18 04:15 Total Protein 5.1 gm/dL (6.0-8.3) L 02/23/18 04:45 Albumin 2.1 gm/dL (4.2-5.5) L 02/23/18 04:45 Globulin 3.0 gm/dL 02/23/18 04:45 Albumin/Globulin Ratio 0.7 (1.0-1.8) L 02/23/18 04:45 Triglycerides 72 mg/dL (<150) 01/31/18 04:15 Cholesterol 97 mg/dL (<200) 01/31/18 04:15 LDL Cholesterol Direct 45 mg/dL (75-193) L 01/31/18 04:15 HDL Cholesterol 36 mg/dL (23-92) 01/31/18 04:15 TSH 2.15 uIU/ml (0.34-5.60) 01/31/18 04:15 PTH Intact 36 pg/mL (15-65) 02/01/18 05:22 Urine Source CLEAN C 02/17/18 16:59 Urine Color YELLOW 02/17/18 16:59 Urine Clarity HAZY (CLEAR) 02/17/18 16:59 Urine pH 8.5 (4.6 - 8.0) 02/17/18 16:59 Ur Specific [place] 1.020 (1.005-1.030) 02/17/18 16:59 Urine Protein >=300 mg/dL (NEGATIVE) 02/17/18 16:59 Urine Glucose (UA) 100 mg/dL (NEGATIVE) H 02/17/18 16:59 Urine Ketones NEGATIVE mg/dL (NEGATIVE) 02/17/18 16:59 Urine Blood LARGE (NEGATIVE) H 02/17/18 16:59 Urine Nitrate NEGATIVE (NEGATIVE) 02/17/18 16:59 Urine Bilirubin NEGATIVE (NEGATIVE) 02/17/18 16:59 Urine Urobilinogen 0.2 E.U./dL (0.2 - 1.0) 02/17/18 16:59 Ur Leukocyte Esterase SMALL (NEGATIVE) H 02/17/18 16:59 Urine RBC 25-50 /hpf (0-5) H 02/17/18 16:59 Urine WBC 6-10 /hpf (0-5) 02/17/18 16:59 Ur Epithelial Cells MODERATE /lpf (FEW) 02/17/18 16:59 Urine Bacteria FEW /hpf (NONE SEEN) 02/17/18 16:59 Fluid Source PLEURAL 02/01/18 11:00 Fluid Color PALE YELLOW 02/01/18 11:00 Fluid Appearance HAZY 02/01/18 11:00 Fluid WBC 149 /cumm 02/01/18 11:00 Fluid RBC 185 /cumm 02/01/18 11:00 Fluid Neutrophils 2 % 02/01/18 11:00 Fluid Lymphocytes 50 % 02/01/18 11:00 Fluid Monocytes 48 % 02/01/18 11:00 Fluid Glucose 75.0 mg/dL 02/01/18 11:00 Fluid Total Protein 2.3 g/dL 02/01/18 11:00 Fluid Amylase 61 U/L 02/01/18 11:00 Random Vancomycin 22.5 ug/mL (5.0-40.0) 02/04/18 05:52 Coccidioides Ab Negative (Neg:<1:2) 02/19/18 05:27 TB (QFT) Gold In Tube Negative (Negative) 02/18/18 19:50 TB Test (QFT) Mitogen 7.52 IU/mL 02/18/18 19:50 TB Test (QFT) Antigen 0.06 IU/mL 02/18/18 19:50 TB Test Antigen - Nil 0.00 IU/mL 02/18/18 19:50 TB Test TB - Nil 0.06 IU/mL 02/18/18 19:50 TB Test (QFT) Interp 02/18/18 19:50 Blood Type O POSITIVE 02/20/18 07:00 Antibody Screen NEGATIVE 02/20/18 07:00 - Physical Exam Vitals and I&O: Vital Signs Temp 98.7 F 02/23/18 08:00 Pulse 62 02/23/18 11:00 Resp 16 02/23/18 11:00 BP 133/61 02/23/18 11:00 Pulse Ox 100 02/23/18 11:00 Intake & Output 02/22/18 02/23/18 02/23/18 18:59 06:59 18:59 Intake Total 600 200 Output Total 1810 140 Balance -1210 60 Weight (lbs) 68.039 kg 68.039 kg Intake: Oral 600 200 Output: Chest Tube Drainage 10 140 Right Lower Anterior 10 140 Chest Urine 0 Hemodialysis 1800 Other: # Bowel Movements 0 Weight Source Bedscale Bedscale Active Medications: Current Medications Acetaminophen (Tylenol) 650 mg PO Q6HR PRN PRN Reason: PAIN Stop: 03/30/18 23:07 Acetaminophen/Hydrocodone Bitart ([place] 5mg/325mg) 2 tab PO Q4H PRN PRN Reason: Pain (Moderate) Stop: 03/30/18 23:16 Last Admin: 02/18/18 22:42 Dose: 2 tab Al Hydrox/Mg Hydrox/Simethicone (Maalox) 30 ml PO Q4H PRN PRN Reason: Heartburn Stop: 04/17/18 22:02 Last Admin: 02/16/18 22:29 Dose: 30 ml Albuterol Sulfate (Albuterol 2.5mg/3ml Neb Ud) 2.5 mg HHN Q1H PRN PRN Reason: Respiratory Distress Stop: 03/31/18 07:59 Last Admin: 02/01/18 15:33 Dose: 2.5 mg Albuterol/Ipratropium (Duoneb Neb) 3 ml HHN Q4HRT [facility]ANDA Stop: 03/31/18 14:59 Last Admin: 02/23/18 10:25 Dose: 3 ml Atorvastatin Calcium (Lipitor) 40 mg PO HS [facility] Stop: 03/31/18 20:59 Last Admin: 02/22/18 20:10 Dose: 40 mg Cinacalcet (Sensipar) 30 mg PO DAILY [facility] Stop: 03/31/18 08:59 Last Admin: 02/23/18 08:32 Dose: 30 mg Diclofenac Sodium (Voltaren) 50 mg PO BID [facility] Stop: 04/01/18 08:59 Last Admin: 02/23/18 08:32 Dose: 50 mg Docusate Sodium (Colace) 100 mg PO DAILY [facility] Stop: 03/31/18 08:59 Last Admin: 02/23/18 08:35 Dose: 100 mg Famotidine (Pepcid) 20 mg PO DAILY [facility] Stop: 04/18/18 08:59 Last Admin: 02/23/18 08:34 Dose: 20 mg Hydromorphone HCl (Dilaudid) 2 mg IVP Q4HR PRN PRN Reason: chest pain Stop: 04/21/18 13:55 Last Admin: 02/23/18 04:55 Dose: 2 mg Sodium Chloride (Nacl 0.9%) 1,000 mls @ 60 mls/hr IV .[id number] [facility] Stop: 02/26/18 19:47 Last Admin: 02/21/18 16:43 Dose: 60 mls/hr Cefepime HCl 1 gm/ Sodium (Chloride) 50 mls @ 100 mls/hr IV Q24H [facility] Stop: 04/24/18 10:29 Ipratropium Paicines (Atrovent Neb 0.5mg/2.5ml) 0.5 mg HHN Q6HRT [facility] Stop: 03/31/18 12:59 Last Admin: 02/23/18 07:09 Dose: Not Given Lactobacillus Rhamnosus (Culturelle 15b) 1 each PO DAILY [facility] Stop: 04/15/18 08:59 Last Admin: 02/23/18 08:35 Dose: 1 each Levofloxacin (Levaquin) 250 mg PO DAILY [facility] Stop: 04/19/18 16:59 Last Admin: 02/22/18 09:00 Dose: Not Given Megestrol Acetate (Megace) 400 mg PO DAILY [facility]; Protocol Stop: 03/31/18 08:59 Last Admin: 02/23/18 08:35 Dose: 400 mg Midodrine (Proamatine) 10 mg PO TID [facility] Stop: 04/16/18 00:29 Last Admin: 02/23/18 08:35 Dose: 10 mg Miscellaneous (Clinical Monitoring) 1 ea [facility] DAILY PRN PRN Reason: RENAL Stop: 04/08/18 08:30 Miscellaneous (Probiotic Screen) [facility] PRN PRN PRN Reason: PROTOCOL Stop: 04/14/18 09:44 Sevelamer Carbonate (Renvela) 800 mg PO TID [facility] Stop: 03/30/18 23:14 Last Admin: 02/23/18 08:34 Dose: 800 mg Vitamin B Complex/Vit C/Folic Acid (Vitamin B Complex W/Vitamin C) 1 tab PO DAILY [facility] Stop: 03/31/18 08:59 Last Admin: 02/23/18 08:34 Dose: 1 tab General: Alert, Oriented x3, Cooperative, No acute distress HEENT: Atraumatic, PERRLA, EOMI, Mucous membr. moist/pink Neck: Supple, +2 carotid pulse wo bruit Cardiovascular: Regular rate, Normal S1, Normal S2 Lungs: Other (increased BS right lung field, (+) chest tube) Abdomen: Bowel sounds, Soft Extremities: no Edema Neurological: Sensation intact Skin: no Rash Psych/Mental Status: Mood NL - Procedures Procedures: Procedures Procedure Code Date DRAINAGE OF R PLEURAL CAV WITH DRAIN DEV, PERC APPROACH [id number] 01/29/18 DRAINAGE OF RIGHT LOWER LUNG LOBE, ENDO, DIAGN 2O3G2CS 01/29/18 Assessment/Plan - Problem List Patient Problems: All Active Problems RIGHT FACIAL SWELLING AND PAIN (Acute) Nutritional Asmnt/Malnutr-PDOC - Dietary Evaluation Malnutrition Findings (Please click <Entered> for more info): Nutritional Asmnt/Malnutrition Start: 02/03/18 12: 10 Text: Status: Complete Freq: Protocol: Document 02/03/18 12:10 MMULHERN (Rec: 02/03/18 12:31 [email or web address] [email or web address]) Nutritional Asmnt/Malnutrition Patient General Information Nutritional Screening Moderate Risk Diagnosis Rt facuial cellulitis, rt pleural effusion Pertinent Medical Hx/Surgical Hx ESRD on dialysis x 7 years, COPD, hyperlipidemia, Type 2 diabetes Subjective Information Per H&P, patient was on peritoneal dialysis up to a few months ago when he was diagnosed with peritonitis ( now on HD TTS). Per nursing notes, pt refusing some medications. Diet education not appropriate at this time. Current Diet Order/ Nutrition Support 60 gm CCHO, 1200 ml fluid restriction Patient / S.O Not Indicated Pertinent Medications lipitor, Sensipar, colace, lasix, Epogen, Megacem abx, Renvela, Vitamin B complex with C Pertinent Labs ((02/02) Cr 4.5, Ca 8.5, albumin 24 Nutritional Hx/Data Height 1.68 m Height (Calculated Centimeters) 167.6 Current Weight (lbs) 79.379 kg Weight (Calculated Kilograms) 79.4 Weight (Calculated Grams) 39085.7 [place] Body Weight 142 % [place] Body Weight 123 Body Mass Index (BMI) 28.2 Recent Weight Change No Weight Status Overweight GI Symptoms GI Symptoms None Last BM 02/02 x 1 Difficult in: None Food Allergies No Cultural/Ethnic/[employer] Belief none indicated Usual diet at home unknown Skin Integrity/Comment: Ba 15, cellulitis facial Current %PO Good (75-100%) Estimated Nutritional Goals BEE in Kcals: Adj wt of IBW Calories/Kcals/Kg 27-32 kcal/kg using 68.2 kg Adj wt Kcals Calculated 0848-9820 kcal/day Protein: Adj wt of IBW Protein g/k.2-1.5 gm/kg (HD) Protein Calculated 80-100 gm/day Fluid: ml Per MD due to HD Nutritional Problem 1. Problem Problem Increased nutrient needs related to Etiology impaired skin integrity/ dialysis aeb Signs/Symptoms: Facial cellulitis and on HD Intervention/Recommendation Comments Consider modifying diet to 2gm sodium. Glucose/HG1AC low, no need for Diabetic restriction . Continue to monitor K and Phosphorus levels and need for Renal diet (not needed at this time.) Consider Prosource with meals for added protein due to cellulitis and HD. Expected Outcomes/Goals Expected Outcomes/Goals oral intake to meet >75% of nutrient needs, nutritino related labs normalize, weight stable.
--- NOTE | 2018-02-23 14:09 | General Progress Note ---
Subjective - Review of Systems Service Date: 02/23/18 Subjective: more alert, verbal, comfortable Objective - Results Result Diagrams: 02/23/18 04:50 02/23/18 04:45 Recent Labs: Laboratory Last Values WBC 9.6 Th/cmm (4.8-10.8) 02/23/18 04:50 RBC 3.02 Mil/cmm (3.80-5.80) L 02/23/18 04:50 Hgb 9.0 gm/dL (12-16) L 02/23/18 04:50 Hct 27.6 % (41.0-60) L 02/23/18 04:50 MCV 91.5 fl (80-99) 02/23/18 04:50 MCH 29.6 pg (27.0-31.0) 02/23/18 04:50 MCHC Differential 32.4 pg (28.0-36.0) 02/23/18 04:50 RDW 15.6 % (11.5-20.0) 02/23/18 04:50 Plt Count 238 Th/cmm (150-400) 02/23/18 04:50 MPV 6.6 fl 02/23/18 04:50 Neutrophils % 62.0 % (40.0-80.0) 02/23/18 04:50 Lymphocytes % 18.3 % (20.0-50.0) L 02/23/18 04:50 Monocytes % 11.5 % (2.0-10.0) H 02/23/18 04:50 Eosinophils % 7.4 % (0.0-5.0) H 02/23/18 04:50 Basophils % 0.8 % (0.0-2.0) 02/23/18 04:50 ESR 87 mm/hr (0-20) H 01/31/18 04:15 PT 10.2 SECONDS (9.5-11.5) 02/20/18 09:40 INR 0.98 (0.5-1.4) 02/20/18 09:40 PTT (Actin FS) 30.6 SECONDS (26.0-38.0) 02/20/18 09:40 Sodium 137 mEq/L (136-145) 02/23/18 04:45 Potassium 3.7 mEq/L (3.5-5.1) 02/23/18 04:45 Chloride 107 mEq/L (98-107) 02/23/18 04:45 Carbon Dioxide 24.4 mEq/L (21.0-31.0) 02/23/18 04:45 Anion Gap 9.3 (7.0-16.0) 02/23/18 04:45 BUN 14 mg/dL (7-25) 02/23/18 04:45 Creatinine 3.5 mg/dL (0.7-1.3) H 02/23/18 04:45 Est GFR ( Amer) 22.7 ml/min (>90) 02/23/18 04:45 Est GFR (Non-Af Amer) 18.8 ml/min 02/23/18 04:45 BUN/Creatinine Ratio 4.0 02/23/18 04:45 Glucose 78 mg/dL (70-105) 02/23/18 04:45 POC Glucose 106 MG/DL (70 - 105) H 02/08/18 12:11 Hemoglobin A1c % 3.5 % (4.0-6.0) L 01/31/18 04:15 Whole Bld Lactic Acid 0.55 mmol/L (0.60-1.99) L 01/29/18 16:42 Calcium 8.4 mg/dL (8.6-10.3) L 02/23/18 04:45 Phosphorus 4.1 mg/dL (2.5-5.0) 01/31/18 04:15 Magnesium 2.0 mg/dL (1.9-2.7) 02/23/18 04:45 Total Bilirubin 0.4 mg/dL (0.3-1.0) 02/23/18 04:45 AST 13 U/L (13-39) 02/23/18 04:45 ALT 6 U/L (7-52) L 02/23/18 04:45 Alkaline Phosphatase 59 U/L (34-104) 02/23/18 04:45 Creatine Kinase 12 U/L (30-223) L 01/29/18 16:42 Troponin I 0.02 ng/mL (0.01-0.05) 01/29/18 16:42 C-Reactive Protein 11.4 mg/dL (0.0-0.9) H 01/31/18 04:15 Total Protein 5.1 gm/dL (6.0-8.3) L 02/23/18 04:45 Albumin 2.1 gm/dL (4.2-5.5) L 02/23/18 04:45 Globulin 3.0 gm/dL 02/23/18 04:45 Albumin/Globulin Ratio 0.7 (1.0-1.8) L 02/23/18 04:45 Triglycerides 72 mg/dL (<150) 01/31/18 04:15 Cholesterol 97 mg/dL (<200) 01/31/18 04:15 LDL Cholesterol Direct 45 mg/dL (75-193) L 01/31/18 04:15 HDL Cholesterol 36 mg/dL (23-92) 01/31/18 04:15 TSH 2.15 uIU/ml (0.34-5.60) 01/31/18 04:15 PTH Intact 36 pg/mL (15-65) 02/01/18 05:22 Urine Source CLEAN C 02/17/18 16:59 Urine Color YELLOW 02/17/18 16:59 Urine Clarity HAZY (CLEAR) 02/17/18 16:59 Urine pH 8.5 (4.6 - 8.0) 02/17/18 16:59 Ur Specific [place] 1.020 (1.005-1.030) 02/17/18 16:59 Urine Protein >=300 mg/dL (NEGATIVE) 02/17/18 16:59 Urine Glucose (UA) 100 mg/dL (NEGATIVE) H 02/17/18 16:59 Urine Ketones NEGATIVE mg/dL (NEGATIVE) 02/17/18 16:59 Urine Blood LARGE (NEGATIVE) H 02/17/18 16:59 Urine Nitrate NEGATIVE (NEGATIVE) 02/17/18 16:59 Urine Bilirubin NEGATIVE (NEGATIVE) 02/17/18 16:59 Urine Urobilinogen 0.2 E.U./dL (0.2 - 1.0) 02/17/18 16:59 Ur Leukocyte Esterase SMALL (NEGATIVE) H 02/17/18 16:59 Urine RBC 25-50 /hpf (0-5) H 02/17/18 16:59 Urine WBC 6-10 /hpf (0-5) 02/17/18 16:59 Ur Epithelial Cells MODERATE /lpf (FEW) 02/17/18 16:59 Urine Bacteria FEW /hpf (NONE SEEN) 02/17/18 16:59 Fluid Source PLEURAL 02/01/18 11:00 Fluid Color PALE YELLOW 02/01/18 11:00 Fluid Appearance HAZY 02/01/18 11:00 Fluid WBC 149 /cumm 02/01/18 11:00 Fluid RBC 185 /cumm 02/01/18 11:00 Fluid Neutrophils 2 % 02/01/18 11:00 Fluid Lymphocytes 50 % 02/01/18 11:00 Fluid Monocytes 48 % 02/01/18 11:00 Fluid Glucose 75.0 mg/dL 02/01/18 11:00 Fluid Total Protein 2.3 g/dL 02/01/18 11:00 Fluid Amylase 61 U/L 02/01/18 11:00 Random Vancomycin 22.5 ug/mL (5.0-40.0) 02/04/18 05:52 Coccidioides Ab Negative (Neg:<1:2) 02/19/18 05:27 TB (QFT) Gold In Tube Negative (Negative) 02/18/18 19:50 TB Test (QFT) Mitogen 7.52 IU/mL 02/18/18 19:50 TB Test (QFT) Antigen 0.06 IU/mL 02/18/18 19:50 TB Test Antigen - Nil 0.00 IU/mL 02/18/18 19:50 TB Test TB - Nil 0.06 IU/mL 02/18/18 19:50 TB Test (QFT) Interp 02/18/18 19:50 Blood Type O POSITIVE 02/20/18 07:00 Antibody Screen NEGATIVE 02/20/18 07:00 - Physical Exam Vitals and I&O: Vital Signs Temp 98.7 F 02/23/18 08:00 Pulse 62 02/23/18 11:00 Resp 16 02/23/18 11:00 BP 133/61 02/23/18 11:00 Pulse Ox 100 02/23/18 11:00 Intake & Output 02/22/18 02/23/18 02/23/18 18:59 06:59 18:59 Intake Total 600 200 Output Total 1810 140 Balance -1210 60 Weight (lbs) 68.039 kg 68.039 kg Intake: Oral 600 200 Output: Chest Tube Drainage 10 140 Right Lower Anterior 10 140 Chest Urine 0 Hemodialysis 1800 Other: # Bowel Movements 0 Weight Source Bedscale Bedscale Active Medications: Current Medications Acetaminophen (Tylenol) 650 mg PO Q6HR PRN PRN Reason: PAIN Stop: 03/30/18 23:07 Acetaminophen/Hydrocodone Bitart ([place] 5mg/325mg) 2 tab PO Q4H PRN PRN Reason: Pain (Moderate) Stop: 03/30/18 23:16 Last Admin: 02/18/18 22:42 Dose: 2 tab Al Hydrox/Mg Hydrox/Simethicone (Maalox) 30 ml PO Q4H PRN PRN Reason: Heartburn Stop: 04/17/18 22:02 Last Admin: 02/16/18 22:29 Dose: 30 ml Albuterol Sulfate (Albuterol 2.5mg/3ml Neb Ud) 2.5 mg HHN Q1H PRN PRN Reason: Respiratory Distress Stop: 03/31/18 07:59 Last Admin: 02/01/18 15:33 Dose: 2.5 mg Albuterol/Ipratropium (Duoneb Neb) 3 ml HHN Q4HRT [facility] Stop: 03/31/18 14:59 Last Admin: 02/23/18 10:25 Dose: 3 ml Atorvastatin Calcium (Lipitor) 40 mg PO HS [facility] Stop: 03/31/18 20:59 Last Admin: 02/22/18 20:10 Dose: 40 mg Cinacalcet (Sensipar) 30 mg PO DAILY [facility] Stop: 03/31/18 08:59 Last Admin: 02/23/18 08:32 Dose: 30 mg Diclofenac Sodium (Voltaren) 50 mg PO BID [facility] Stop: 04/01/18 08:59 Last Admin: 02/23/18 08:32 Dose: 50 mg Docusate Sodium (Colace) 100 mg PO DAILY [facility] Stop: 03/31/18 08:59 Last Admin: 02/23/18 08:35 Dose: 100 mg Famotidine (Pepcid) 20 mg PO DAILY [facility] Stop: 04/18/18 08:59 Last Admin: 02/23/18 08:34 Dose: 20 mg Hydromorphone HCl (Dilaudid) 2 mg IVP Q4HR PRN PRN Reason: chest pain Stop: 04/21/18 13:55 Last Admin: 02/23/18 04:55 Dose: 2 mg Sodium Chloride (Nacl 0.9%) 1,000 mls @ 60 mls/hr IV .[id number] [facility] Stop: 02/26/18 19:47 Last Admin: 02/21/18 16:43 Dose: 60 mls/hr Cefepime HCl 1 gm/ Sodium (Chloride) 50 mls @ 100 mls/hr IV Q24H [facility] Stop: 04/24/18 10:29 Last Admin: 02/23/18 12:07 Dose: 100 mls/hr Ipratropium Equality (Atrovent Neb 0.5mg/2.5ml) 0.5 mg HHN Q6HRT [facility] Stop: 03/31/18 12:59 Last Admin: 02/23/18 07:09 Dose: Not Given Lactobacillus Rhamnosus (Culturelle 15b) 1 each PO DAILY [facility] Stop: 04/15/18 08:59 Last Admin: 02/23/18 08:35 Dose: 1 each Levofloxacin (Levaquin) 250 mg PO DAILY [facility] Stop: 04/19/18 16:59 Last Admin: 02/22/18 09:00 Dose: Not Given Megestrol Acetate (Megace) 400 mg PO DAILY [facility]; Protocol Stop: 03/31/18 08:59 Last Admin: 02/23/18 08:35 Dose: 400 mg Midodrine (Proamatine) 10 mg PO TID [facility] Stop: 04/16/18 00:29 Last Admin: 02/23/18 08:35 Dose: 10 mg Miscellaneous (Clinical Monitoring) 1 ea DAILY PRN PRN Reason: RENAL Stop: 04/08/18 08:30 Miscellaneous (Probiotic Screen) 1 [facility] PRN PRN PRN Reason: PROTOCOL Stop: 04/14/18 09:44 Sevelamer Carbonate (Renvela) 800 mg PO TID [facility] Stop: 03/30/18 23:14 Last Admin: 02/23/18 08:34 Dose: 800 mg Vitamin B Complex/Vit C/Folic Acid (Vitamin B Complex W/Vitamin C) 1 tab PO DAILY [facility] Stop: 03/31/18 08:59 Last Admin: 02/23/18 08:34 Dose: 1 tab General: Alert, Oriented x3, Cooperative, No acute distress HEENT: Atraumatic, PERRLA, EOMI, Mucous membr. moist/pink Neck: Supple, +2 carotid pulse wo bruit Cardiovascular: Regular rate, Normal S1, Normal S2 Lungs: Other (increased BS right lung field, (+) chest tube) Abdomen: Bowel sounds, Soft Extremities: no Edema Neurological: Sensation intact Skin: no Rash Psych/Mental Status: Mood NL - Procedures Procedures: Procedures Procedure Code Date DRAINAGE OF R PLEURAL CAV WITH DRAIN DEV, PERC APPROACH [id number] 01/29/18 DRAINAGE OF RIGHT LOWER LUNG LOBE, ENDO, DIAGN [id number] 01/29/18 Assessment/Plan - Problem List Patient Problems: All Active Problems RIGHT FACIAL SWELLING AND PAIN (Acute) - Assessment Assessment: ESRD on HD Right facial cellulitis Right lung opacification 2/2 effusion Cx UTI T2DM Anemia of CKD right PTX s/p chest tube S/P right lung surgery - Plan Plan: Lab - Result Diagrams 01/31/18 04:15 01/31/18 04:15 Current Medications Acetaminophen (Tylenol) 650 mg PO Q6HR PRN PRN Reason: PAIN Stop: 03/30/18 23:07 Acetaminophen/Hydrocodone Bitart ([place] 5mg/325mg) 2 tab PO Q4H PRN PRN Reason: Pain (Moderate) Stop: 03/30/18 23:16 Last Admin: 01/29/18 23:29 Dose: 2 tab Acetylcysteine (Mucomyst 20%) 2 ml HHN Q4HRT [facility] Stop: 03/31/18 14:59 Last Admin: 01/31/18 11:27 Dose: 2 ml Albuterol Sulfate (Albuterol 2.5mg/3ml Neb Ud) 2.5 mg HHN Q1H PRN PRN Reason: Respiratory Distress Stop: 03/31/18 07:59 Albuterol/Ipratropium (Duoneb Neb) 3 ml HHN Q4HRT [facility] Stop: 03/31/18 14:59 Last Admin: 01/31/18 11:27 Dose: 3 ml Atorvastatin Calcium (Lipitor) 40 mg PO HS [facility] Stop: 03/31/18 20:59 Last Admin: 01/30/18 21:19 Dose: 40 mg Cinacalcet (Sensipar) 30 mg PO DAILY [facility] Stop: 03/31/18 08:59 Last Admin: 01/31/18 08:28 Dose: Not Given Diclofenac Sodium (Voltaren) 50 mg PO BID [facility] Stop: 04/01/18 08:59 Last Admin: 01/31/18 08:25 Dose: 50 mg Docusate Sodium (Colace) 100 mg PO DAILY [facility] Stop: 03/31/18 08:59 Last Admin: 01/31/18 08:26 Dose: 100 mg Epoetin Vishal (Epogen) 10,000 units SUBQ MWF@1600 [facility] Stop: 04/01/18 15:59 Furosemide (Lasix) 40 mg PO DAILY [facility] Stop: 03/31/18 08:59 Last Admin: 01/31/18 08:26 Dose: 40 mg Heparin Sodium (Porcine) (Heparin) 5,000 units IVP ONCE@2100 [facility] Stop: 01/31/18 21:01 Last Admin: 01/30/18 21:18 Dose: 5,000 units Ceftriaxone Sodium 1 gm/ (Sodium Chloride) 50 mls @ 100 mls/hr IV Q24HR [facility] Stop: 03/31/18 18:59 Last Infusion: 01/30/18 21:50 Dose: Infused Ipratropium Equality (Atrovent Neb 0.5mg/2.5ml) 0.5 mg HHN Q6HRT [facility] Stop: 03/31/18 12:59 Last Admin: 01/31/18 00:57 Dose: Not Given Lactobacillus Rhamnosus (Culturelle 15b) 1 each PO DAILY [facility] Stop: 03/30/18 23:14 Last Admin: 01/31/18 08:27 Dose: 1 each Megestrol Acetate (Megace) 400 mg PO DAILY [facility] PRN Reason: Protocol Stop: 03/31/18 08:59 Last Admin: 01/31/18 09:31 Dose: Not Given Metoprolol Tartrate (Lopressor) 50 mg PO BID [facility] Stop: 03/30/18 23:14 Last Admin: 01/31/18 08:27 Dose: 50 mg Midodrine (Proamatine) 5 mg PO TID PRN PRN Reason: HYPOTENSION Stop: 03/30/18 23:07 Miscellaneous (Vancomycin Iv Per Pharmacy) 1 ea MC PRN [facility] Stop: 03/30/18 21:44 Morphine Sulfate (Morphine) 1 mg IVP Q4HR PRN PRN Reason: Pain (Severe) Stop: 03/30/18 23:17 Last Admin: 01/31/18 08:17 Dose: 1 mg Sevelamer Carbonate (Renvela) 800 mg PO TID [facility] Stop: 03/30/18 23:14 Last Admin: 01/31/18 08:28 Dose: 800 mg Vitamin B Complex/Vit C/Folic Acid (Vitamin B Complex W/Vitamin C) 1 tab PO DAILY [facility] Stop: 03/31/18 08:59 Last Admin: 01/31/18 08:28 Dose: 1 Lab - Result Diagrams 02/23/18 04:50 02/23/18 04:45 continue Rocephin WBC up to 9.6 bronchoscopy: no endobronchial lesion CXR: persistent right effusion, 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 tomorropw Nutritional Asmnt/Malnutr-PDOC - Dietary Evaluation Malnutrition Findings (Please click <Entered> for more info): Nutritional Asmnt/Malnutrition Start: 02/03/18 12: 10 Text: Status: Complete Freq: Protocol: Document 02/03/18 12:10 MMULHERN (Rec: 02/03/18 12:31 [email or web address] VALERIO- [email or web address]) Nutritional Asmnt/Malnutrition Patient General Information Nutritional Screening Moderate Risk Diagnosis Rt facuial cellulitis, rt pleural effusion Pertinent Medical Hx/Surgical Hx ESRD on dialysis x 7 years, COPD, hyperlipidemia, Type 2 diabetes Subjective Information Per H&P, patient was on peritoneal dialysis up to a few months ago when he was diagnosed with peritonitis ( now on HD TTS). Per nursing notes, pt refusing some medications. Diet education not appropriate at this time. Current Diet Order/ Nutrition Support 60 gm CCHO, 1200 ml fluid restriction Patient / S.O Not Indicated Pertinent Medications lipitor, Sensipar, colace, lasix, Epogen, Megacem abx, Renvela, Vitamin B complex with C Pertinent Labs ((02/02) Cr 4.5, Ca 8.5, albumin 24 Nutritional Hx/Data Height 1.68 m Height (Calculated Centimeters) 167.6 Current Weight (lbs) 79.379 kg Weight (Calculated Kilograms) 79.4 Weight (Calculated Grams) 21810.7 [place] Body Weight 142 % [place] Body Weight 123 Body Mass Index (BMI) 28.2 Recent Weight Change No Weight Status Overweight GI Symptoms GI Symptoms None Last BM 02/02 x 1 Difficult in: None Food Allergies No Cultural/Ethnic/[employer] Belief none indicated Usual diet at home unknown Skin Integrity/Comment: Ba 15, cellulitis facial Current %PO Good (75-100%) Estimated Nutritional Goals BEE in Kcals: Adj wt of IBW Calories/Kcals/Kg 27-32 kcal/kg using 68.2 kg Adj wt Kcals Calculated 8579-1437 kcal/day Protein: Adj wt of IBW Protein g/k.2-1.5 gm/kg (HD) Protein Calculated 80-100 gm/day Fluid: ml Per MD due to HD Nutritional Problem 1. Problem Problem Increased nutrient needs related to Etiology impaired skin integrity/ dialysis aeb Signs/Symptoms: Facial cellulitis and on HD Intervention/Recommendation Comments Consider modifying diet to 2gm sodium. Glucose/HG1AC low, no need for Diabetic restriction . Continue to monitor K and Phosphorus levels and need for Renal diet (not needed at this time.) Consider Prosource with meals for added protein due to cellulitis and HD. Expected Outcomes/Goals Expected Outcomes/Goals oral intake to meet >75% of nutrient needs, nutritino related labs normalize, weight stable.
--- NOTE | 2018-02-24 01:49 | Infectious Disease Prog Note ---
Infectious Disease Subjective - Review of Systems Service Date: 02/23/18 Subjective: Patient is in ICU. No fever. Infectious Disease Objective - Results Result Diagrams: 02/23/18 04:50 02/23/18 04:45 Recent Labs: Laboratory Last Values WBC 9.6 Th/cmm (4.8-10.8) 02/23/18 04:50 RBC 3.02 Mil/cmm (3.80-5.80) L 02/23/18 04:50 Hgb 9.0 gm/dL (12-16) L 02/23/18 04:50 Hct 27.6 % (41.0-60) L 02/23/18 04:50 MCV 91.5 fl (80-99) 02/23/18 04:50 MCH 29.6 pg (27.0-31.0) 02/23/18 04:50 MCHC Differential 32.4 pg (28.0-36.0) 02/23/18 04:50 RDW 15.6 % (11.5-20.0) 02/23/18 04:50 Plt Count 238 Th/cmm (150-400) 02/23/18 04:50 MPV 6.6 fl 02/23/18 04:50 Neutrophils % 62.0 % (40.0-80.0) 02/23/18 04:50 Lymphocytes % 18.3 % (20.0-50.0) L 02/23/18 04:50 Monocytes % 11.5 % (2.0-10.0) H 02/23/18 04:50 Eosinophils % 7.4 % (0.0-5.0) H 02/23/18 04:50 Basophils % 0.8 % (0.0-2.0) 02/23/18 04:50 ESR 87 mm/hr (0-20) H 01/31/18 04:15 PT 10.2 SECONDS (9.5-11.5) 02/20/18 09:40 INR 0.98 (0.5-1.4) 02/20/18 09:40 PTT (Actin FS) 30.6 SECONDS (26.0-38.0) 02/20/18 09:40 Sodium 137 mEq/L (136-145) 02/23/18 04:45 Potassium 3.7 mEq/L (3.5-5.1) 02/23/18 04:45 Chloride 107 mEq/L (98-107) 02/23/18 04:45 Carbon Dioxide 24.4 mEq/L (21.0-31.0) 02/23/18 04:45 Anion Gap 9.3 (7.0-16.0) 02/23/18 04:45 BUN 14 mg/dL (7-25) 02/23/18 04:45 Creatinine 3.5 mg/dL (0.7-1.3) H 02/23/18 04:45 Est GFR ( Amer) 22.7 ml/min (>90) 02/23/18 04:45 Est GFR (Non-Af Amer) 18.8 ml/min 02/23/18 04:45 BUN/Creatinine Ratio 4.0 02/23/18 04:45 Glucose 78 mg/dL (70-105) 02/23/18 04:45 POC Glucose 106 MG/DL (70 - 105) H 02/08/18 12:11 Hemoglobin A1c % 3.5 % (4.0-6.0) L 01/31/18 04:15 Whole Bld Lactic Acid 0.55 mmol/L (0.60-1.99) L 01/29/18 16:42 Calcium 8.4 mg/dL (8.6-10.3) L 02/23/18 04:45 Phosphorus 4.1 mg/dL (2.5-5.0) 01/31/18 04:15 Magnesium 2.0 mg/dL (1.9-2.7) 02/23/18 04:45 Total Bilirubin 0.4 mg/dL (0.3-1.0) 02/23/18 04:45 AST 13 U/L (13-39) 02/23/18 04:45 ALT 6 U/L (7-52) L 02/23/18 04:45 Alkaline Phosphatase 59 U/L (34-104) 02/23/18 04:45 Creatine Kinase 12 U/L (30-223) L 01/29/18 16:42 Troponin I 0.02 ng/mL (0.01-0.05) 01/29/18 16:42 C-Reactive Protein 11.4 mg/dL (0.0-0.9) H 01/31/18 04:15 Total Protein 5.1 gm/dL (6.0-8.3) L 02/23/18 04:45 Albumin 2.1 gm/dL (4.2-5.5) L 02/23/18 04:45 Globulin 3.0 gm/dL 02/23/18 04:45 Albumin/Globulin Ratio 0.7 (1.0-1.8) L 02/23/18 04:45 Triglycerides 72 mg/dL (<150) 01/31/18 04:15 Cholesterol 97 mg/dL (<200) 01/31/18 04:15 LDL Cholesterol Direct 45 mg/dL (75-193) L 01/31/18 04:15 HDL Cholesterol 36 mg/dL (23-92) 01/31/18 04:15 TSH 2.15 uIU/ml (0.34-5.60) 01/31/18 04:15 PTH Intact 36 pg/mL (15-65) 02/01/18 05:22 Urine Source CLEAN C 02/17/18 16:59 Urine Color YELLOW 02/17/18 16:59 Urine Clarity HAZY (CLEAR) 02/17/18 16:59 Urine pH 8.5 (4.6 - 8.0) 02/17/18 16:59 Ur Specific [place] 1.020 (1.005-1.030) 02/17/18 16:59 Urine Protein >=300 mg/dL (NEGATIVE) 02/17/18 16:59 Urine Glucose (UA) 100 mg/dL (NEGATIVE) H 02/17/18 16:59 Urine Ketones NEGATIVE mg/dL (NEGATIVE) 02/17/18 16:59 Urine Blood LARGE (NEGATIVE) H 02/17/18 16:59 Urine Nitrate NEGATIVE (NEGATIVE) 02/17/18 16:59 Urine Bilirubin NEGATIVE (NEGATIVE) 02/17/18 16:59 Urine Urobilinogen 0.2 E.U./dL (0.2 - 1.0) 02/17/18 16:59 Ur Leukocyte Esterase SMALL (NEGATIVE) H 02/17/18 16:59 Urine RBC 25-50 /hpf (0-5) H 02/17/18 16:59 Urine WBC 6-10 /hpf (0-5) 02/17/18 16:59 Ur Epithelial Cells MODERATE /lpf (FEW) 02/17/18 16:59 Urine Bacteria FEW /hpf (NONE SEEN) 02/17/18 16:59 Fluid Source PLEURAL 02/01/18 11:00 Fluid Color PALE YELLOW 02/01/18 11:00 Fluid Appearance HAZY 02/01/18 11:00 Fluid WBC 149 /cumm 02/01/18 11:00 Fluid RBC 185 /cumm 02/01/18 11:00 Fluid Neutrophils 2 % 02/01/18 11:00 Fluid Lymphocytes 50 % 02/01/18 11:00 Fluid Monocytes 48 % 02/01/18 11:00 Fluid Glucose 75.0 mg/dL 02/01/18 11:00 Fluid Total Protein 2.3 g/dL 02/01/18 11:00 Fluid Amylase 61 U/L 02/01/18 11:00 Random Vancomycin 22.5 ug/mL (5.0-40.0) 02/04/18 05:52 Coccidioides Ab Negative (Neg:<1:2) 02/19/18 05:27 TB (QFT) Gold In Tube Negative (Negative) 02/18/18 19:50 TB Test (QFT) Mitogen 7.52 IU/mL 02/18/18 19:50 TB Test (QFT) Antigen 0.06 IU/mL 02/18/18 19:50 TB Test Antigen - Nil 0.00 IU/mL 02/18/18 19:50 TB Test TB - Nil 0.06 IU/mL 02/18/18 19:50 TB Test (QFT) Interp 02/18/18 19:50 Blood Type O POSITIVE 02/20/18 07:00 Antibody Screen NEGATIVE 02/20/18 07:00 - Physical Exam Vitals and I&O: Vital Signs Temp 98.2 F 02/23/18 23:00 Pulse 78 02/24/18 01:00 Resp 20 02/24/18 01:00 BP 158/81 02/24/18 01:00 Pulse Ox 100 02/24/18 01:00 Intake & Output 02/23/18 02/23/18 02/24/18 06:59 18:59 06:59 Intake Total 200 650 Output Total 140 0 Balance 60 650 Weight (lbs) 68.039 kg 68.039 kg Intake: Intake, IV Amount 50 Cefepime 1 gm In Sodium 50 Chloride 0.9% 50 ml @ 100 mls/hr IV Q24H [facility] Rx#: [id number] Oral 200 600 Output: Chest Tube Drainage 140 Right Lower Anterior 140 Chest Urine 0 0 Other: # Bowel Movements 0 Weight Source Bedscale Bedscale Active Medications: Current Medications Acetaminophen (Tylenol) 650 mg PO Q6HR PRN PRN Reason: PAIN Stop: 03/30/18 23:07 Acetaminophen/Hydrocodone Bitart ([place] 5mg/325mg) 2 tab PO Q4H PRN PRN Reason: Pain (Moderate) Stop: 03/30/18 23:16 Last Admin: 02/18/18 22:42 Dose: 2 tab Al Hydrox/Mg Hydrox/Simethicone (Maalox) 30 ml PO Q4H PRN PRN Reason: Heartburn Stop: 04/17/18 22:02 Last Admin: 02/16/18 22:29 Dose: 30 ml Albuterol Sulfate (Albuterol 2.5mg/3ml Neb Ud) 2.5 mg HHN Q1H PRN PRN Reason: Respiratory Distress Stop: 03/31/18 07:59 Last Admin: 02/01/18 15:33 Dose: 2.5 mg Albuterol/Ipratropium (Duoneb Neb) 3 ml HHN Q4HRT [facility] Stop: 03/31/18 14:59 Last Admin: 02/23/18 23:53 Dose: 3 ml Atorvastatin Calcium (Lipitor) 40 mg PO HS [facility] Stop: 03/31/18 20:59 Last Admin: 02/23/18 21:15 Dose: 40 mg Cinacalcet (Sensipar) 30 mg PO DAILY [facility] Stop: 03/31/18 08:59 Last Admin: 02/23/18 08:32 Dose: 30 mg Diclofenac Sodium (Voltaren) 50 mg PO BID [facility] Stop: 04/01/18 08:59 Last Admin: 02/23/18 17:44 Dose: 50 mg Docusate Sodium (Colace) 100 mg PO DAILY [facility] Stop: 03/31/18 08:59 Last Admin: 02/23/18 08:35 Dose: 100 mg Famotidine (Pepcid) 20 mg PO DAILY [facility] Stop: 04/18/18 08:59 Last Admin: 02/23/18 08:34 Dose: 20 mg Hydromorphone HCl (Dilaudid) 2 mg IVP Q4HR PRN PRN Reason: chest pain Stop: 04/21/18 13:55 Last Admin: 02/23/18 04:55 Dose: 2 mg Sodium Chloride (Nacl 0.9%) 1,000 mls @ 60 mls/hr IV .[id number] [facility] Stop: 02/26/18 19:47 Last Admin: 02/21/18 16:43 Dose: 60 mls/hr Cefepime HCl 1 gm/ Sodium (Chloride) 50 mls @ 100 mls/hr IV Q24H [facility] Stop: 04/24/18 10:29 Last Infusion: 02/23/18 16:11 Dose: Infused Ipratropium [place] (Atrovent Neb 0.5mg/2.5ml) 0.5 mg HHN Q6HRT [facility] Stop: 03/31/18 12:59 Last Admin: 02/23/18 14:22 Dose: Not Given Lactobacillus Rhamnosus (Culturelle 15b) 1 each PO DAILY [facility] Stop: 04/15/18 08:59 Last Admin: 02/23/18 08:35 Dose: 1 each Levofloxacin (Levaquin) 250 mg PO DAILY [facility] Stop: 04/19/18 16:59 Last Admin: 02/23/18 14:21 Dose: 250 mg Megestrol Acetate (Megace) 400 mg PO DAILY [facility]; Protocol Stop: 03/31/18 08:59 Last Admin: 02/23/18 08:35 Dose: 400 mg Midodrine (Proamatine) 10 mg PO TID [facility] Stop: 04/16/18 00:29 Last Admin: 02/23/18 21:16 Dose: 10 mg Miscellaneous (Clinical Monitoring) 1 ea MC DAILY PRN PRN Reason: RENAL Stop: 04/08/18 08:30 Miscellaneous (Probiotic Screen) 1 ea PRN PRN PRN Reason: PROTOCOL Stop: 04/14/18 09:44 Sevelamer Carbonate (Renvela) 800 mg PO TID [facility] Stop: 03/30/18 23:14 Last Admin: 02/23/18 21:16 Dose: 800 mg Vitamin B Complex/Vit C/Folic Acid (Vitamin B Complex W/Vitamin C) 1 tab PO DAILY [facility] Stop: 03/31/18 08:59 Last Admin: 02/23/18 08:34 Dose: 1 tab General: no acute distress, cachectic HEENT: atraumatic, normocephalic, PERRLA, EOMI Neck: supple, no thyromegaly Cardiovascular: S1S2, regular Lungs: rhonchi, other (right sided chest tube.) Abdomen: soft, no tender, no distended Extremities: no cyanosis, no clubbing, no edema Neurological: awake, alert, oriented Skin: intact - Procedures Procedures: Procedures Procedure Code Date DRAINAGE OF R PLEURAL CAV WITH DRAIN DEV, PERC APPROACH [id number] 01/29/18 DRAINAGE OF RIGHT LOWER LUNG LOBE, ENDO, DIAGN [id number] 01/29/18 Infectious Disease Assmt/Plan - Problem List Patient Problems: All Active Problems RIGHT FACIAL SWELLING AND PAIN (Acute) - Assessment Assessment: 1. Pleural effusion with lymphocyte predominance. Empyema culture growing Pseudomonas. It is not clear whether it is from the bronchoalveolar lavage are from the pleural fluid. The differential includes malignant pleural effusion, versus tuberculous empyema. 2. Pseudomonas pneumonia. 3. Chronic kidney disease stage 5, on hemodialysis. 4. Diabetes mellitus type 2. 5. Chronic obstructive pulmonary disease. 6. Hyperlipidemia. 7. Urinary tract infection, treated. 8. Hyperlipidemia. - Plan Plan: Continue the same treatment. Check pleural fluid for AFB and cytology. Pleural fluid adenosine deaminase. Nutritional Asmnt/Malnutr-PDOC - Dietary Evaluation Malnutrition Findings (Please click <Entered> for more info): Nutritional Asmnt/Malnutrition Start: 02/03/18 12: 10 Text: Status: Complete Freq: Protocol: Document 02/03/18 12:10 MMULRAUL (Rec: 02/03/18 12:31 MMULRAUL VALERIO FN) Nutritional Asmnt/Malnutrition Patient General Information Nutritional Screening Moderate Risk Diagnosis Rt facuial cellulitis, rt pleural effusion Pertinent Medical Hx/Surgical Hx ESRD on dialysis x 7 years, COPD, hyperlipidemia, Type 2 diabetes Subjective Information Per H&P, patient was on peritoneal dialysis up to a few months ago when he was diagnosed with peritonitis ( now on HD TTS). Per nursing notes, pt refusing some medications. Diet education not appropriate at this time. Current Diet Order/ Nutrition Support 60 gm CCHO, 1200 ml fluid restriction Patient / S.O Not Indicated Pertinent Medications lipitor, Sensipar, colace, lasix, Epogen, Megacem abx, Renvela, Vitamin B complex with C Pertinent Labs ((02/02) Cr 4.5, Ca 8.5, albumin 24 Nutritional Hx/Data Height 1.68 m Height (Calculated Centimeters) 167.6 Current Weight (lbs) 79.379 kg Weight (Calculated Kilograms) 79.4 Weight (Calculated Grams) 78363.7 Nash Body Weight 142 % Nash Body Weight 123 Body Mass Index (BMI) 28.2 Recent Weight Change No Weight Status Overweight GI Symptoms GI Symptoms None Last BM 02/02 x 1 Difficult in: None Food Allergies No Cultural/Ethnic/Anabaptist Belief none indicated Usual diet at home unknown Skin Integrity/Comment: Ba 15, cellulitis facial Current %PO Good (75-100%) Estimated Nutritional Goals BEE in Kcals: Adj wt of IBW Calories/Kcals/Kg 27-32 kcal/kg using 68.2 kg Adj wt Kcals Calculated 8456-6069 kcal/day Protein: Adj wt of IBW Protein g/k.2-1.5 gm/kg (HD) Protein Calculated 80-100 gm/day Fluid: ml Per MD due to HD Nutritional Problem 1. Problem Problem Increased nutrient needs related to Etiology impaired skin integrity/ dialysis aeb Signs/Symptoms: Facial cellulitis and on HD Intervention/Recommendation Comments Consider modifying diet to 2gm sodium. Glucose/HG1AC low, no need for Diabetic restriction . Continue to monitor K and Phosphorus levels and need for Renal diet (not needed at this time.) Consider Prosource with meals for added protein due to cellulitis and HD. Expected Outcomes/Goals Expected Outcomes/Goals oral intake to meet >75% of nutrient needs, nutritino related labs normalize, weight stable.
[2018-02-24 05:47] LABS: % BASOPHILS 1.2 % (0.0-2.0); % EOSINOPHILS 8.7 % (0.0-5.0); % MONOCYTES 10.3 % (2.0-10.0); % NEUTROPHILS 62.8 % (40.0-80.0); BASOPHILE ABSOLUTE 0.1 Th/cumm (0-0.2); EOSINOPHILE ABSOLUTE 0.8 Th/cmm (0.1-0.4); HEMATOCRIT 28.1 % (41.0-60); HEMOGLOBIN 9.2 gm/dL (12-16); LYMPHOCYTE ABSOLUTE 1.6 Th/cmm (1.5-3.0); MEAN CELL VOLUME 90.5 fl (80-99); MEAN CORPUSCULAR HEMOGLOBIN 29.6 pg (27.0-31.0); MEAN CORPUSCULAR HGB CONC 32.7 pg (28.0-36.0); MEAN PLATELET VOLUME 6.6 fl; NEUTROPHILE ABSOLUTE 5.9 Th/cmm (1.8-8.0); PLATELET COUNT 262 Th/cmm (150-400); RED BLOOD COUNT 3.11 Mil/cmm (3.80-5.80); RED CELL DISTRIBUTION WIDTH 15.2 % (11.5-20.0); WHITE BLOOD COUNT 9.4 Th/cmm (4.8-10.8)
[2018-02-24 06:01] LABS: ANION GAP 8.1 (7.0-16.0); CALCIUM SERUM 8.4 mg/dL (8.6-10.3); CARBON DIOXIDE 23.6 mEq/L (21.0-31.0); GFR AFRICAN-AMERICAN 16.2 ml/min (>90); GFR NON AFRICAN-AMERICAN 13.4 ml/min; MAGNESIUM 2.1 mg/dL (1.9-2.7); POTASSIUM SERUM 3.7 mEq/L (3.5-5.1)
[2018-02-24 06:25] LABS: CREATININE - SERUM 4.7 mg/dL (0.7-1.3)
[2018-02-24] MEDS: Albuterol/Ipratropium Neb 3 ML AERS HHN SCH ×5 (07:47→22:56)
[2018-02-24] MEDS: Lactobacillus Rhamnosus GG 15 Billion CFU CAP.SPRINK PO SCH (09:46)
[2018-02-24] MEDS: Vitamin B Complex w/Vitamin C Tab PO SCH (09:47)
--- NOTE | 2018-02-24 11:12 | General Progress Note ---
Subjective - Review of Systems Service Date: 02/24/18 Events since last encounter: 02/24/18 labs noted on HD, via Permcath RSV needs permanent access for surgery, had PD previously and clotted right arm AV shunt repeat chest xray in AM Objective - Results Result Diagrams: 02/24/18 05:20 02/24/18 05:20 Recent Labs: Laboratory Last Values WBC 9.4 Th/cmm (4.8-10.8) 02/24/18 05:20 RBC 3.11 Mil/cmm (3.80-5.80) L 02/24/18 05:20 Hgb 9.2 gm/dL (12-16) L 02/24/18 05:20 Hct 28.1 % (41.0-60) L 02/24/18 05:20 MCV 90.5 fl (80-99) 02/24/18 05:20 MCH 29.6 pg (27.0-31.0) 02/24/18 05:20 MCHC Differential 32.7 pg (28.0-36.0) 02/24/18 05:20 RDW 15.2 % (11.5-20.0) 02/24/18 05:20 Plt Count 262 Th/cmm (150-400) 02/24/18 05:20 MPV 6.6 fl 02/24/18 05:20 Neutrophils % 62.8 % (40.0-80.0) 02/24/18 05:20 Lymphocytes % 17.0 % (20.0-50.0) L 02/24/18 05:20 Monocytes % 10.3 % (2.0-10.0) H 02/24/18 05:20 Eosinophils % 8.7 % (0.0-5.0) H 02/24/18 05:20 Basophils % 1.2 % (0.0-2.0) 02/24/18 05:20 ESR 87 mm/hr (0-20) H 01/31/18 04:15 PT 10.2 SECONDS (9.5-11.5) 02/20/18 09:40 INR 0.98 (0.5-1.4) 02/20/18 09:40 PTT (Actin FS) 30.6 SECONDS (26.0-38.0) 02/20/18 09:40 Sodium 132 mEq/L (136-145) L 02/24/18 05:20 Potassium 3.7 mEq/L (3.5-5.1) 02/24/18 05:20 Chloride 104 mEq/L (98-107) 02/24/18 05:20 Carbon Dioxide 23.6 mEq/L (21.0-31.0) 02/24/18 05:20 Anion Gap 8.1 (7.0-16.0) 02/24/18 05:20 BUN 20 mg/dL (7-25) 02/24/18 05:20 Creatinine 4.7 mg/dL (0.7-1.3) H* 02/24/18 05:20 Est GFR ( Amer) 16.2 ml/min (>90) 02/24/18 05:20 Est GFR (Non-Af Amer) 13.4 ml/min 02/24/18 05:20 BUN/Creatinine Ratio 4.3 02/24/18 05:20 Glucose 77 mg/dL (70-105) 02/24/18 05:20 POC Glucose 106 MG/DL (70 - 105) H 02/08/18 12:11 Hemoglobin A1c % 3.5 % (4.0-6.0) L 01/31/18 04:15 Whole Bld Lactic Acid 0.55 mmol/L (0.60-1.99) L 01/29/18 16:42 Calcium 8.4 mg/dL (8.6-10.3) L 02/24/18 05:20 Phosphorus 4.1 mg/dL (2.5-5.0) 01/31/18 04:15 Magnesium 2.1 mg/dL (1.9-2.7) 02/24/18 05:20 Total Bilirubin 0.4 mg/dL (0.3-1.0) 02/23/18 04:45 AST 13 U/L (13-39) 02/23/18 04:45 ALT 6 U/L (7-52) L 02/23/18 04:45 Alkaline Phosphatase 59 U/L (34-104) 02/23/18 04:45 Creatine Kinase 12 U/L (30-223) L 01/29/18 16:42 Troponin I 0.02 ng/mL (0.01-0.05) 01/29/18 16:42 C-Reactive Protein 11.4 mg/dL (0.0-0.9) H 01/31/18 04:15 Total Protein 5.1 gm/dL (6.0-8.3) L 02/23/18 04:45 Albumin 2.1 gm/dL (4.2-5.5) L 02/23/18 04:45 Globulin 3.0 gm/dL 02/23/18 04:45 Albumin/Globulin Ratio 0.7 (1.0-1.8) L 02/23/18 04:45 Triglycerides 72 mg/dL (<150) 01/31/18 04:15 Cholesterol 97 mg/dL (<200) 01/31/18 04:15 LDL Cholesterol Direct 45 mg/dL (75-193) L 01/31/18 04:15 HDL Cholesterol 36 mg/dL (23-92) 01/31/18 04:15 TSH 2.15 uIU/ml (0.34-5.60) 01/31/18 04:15 PTH Intact 36 pg/mL (15-65) 02/01/18 05:22 Urine Source CLEAN C 02/17/18 16:59 Urine Color YELLOW 02/17/18 16:59 Urine Clarity HAZY (CLEAR) 02/17/18 16:59 Urine pH 8.5 (4.6 - 8.0) 02/17/18 16:59 Ur Specific [place] 1.020 (1.005-1.030) 02/17/18 16:59 Urine Protein >=300 mg/dL (NEGATIVE) 02/17/18 16:59 Urine Glucose (UA) 100 mg/dL (NEGATIVE) H 02/17/18 16:59 Urine Ketones NEGATIVE mg/dL (NEGATIVE) 02/17/18 16:59 Urine Blood LARGE (NEGATIVE) H 02/17/18 16:59 Urine Nitrate NEGATIVE (NEGATIVE) 02/17/18 16:59 Urine Bilirubin NEGATIVE (NEGATIVE) 02/17/18 16:59 Urine Urobilinogen 0.2 E.U./dL (0.2 - 1.0) 02/17/18 16:59 Ur Leukocyte Esterase SMALL (NEGATIVE) H 02/17/18 16:59 Urine RBC 25-50 /hpf (0-5) H 02/17/18 16:59 Urine WBC 6-10 /hpf (0-5) 02/17/18 16:59 Ur Epithelial Cells MODERATE /lpf (FEW) 02/17/18 16:59 Urine Bacteria FEW /hpf (NONE SEEN) 02/17/18 16:59 Fluid Source PLEURAL 02/01/18 11:00 Fluid Color PALE YELLOW 02/01/18 11:00 Fluid Appearance HAZY 02/01/18 11:00 Fluid WBC 149 /cumm 02/01/18 11:00 Fluid RBC 185 /cumm 02/01/18 11:00 Fluid Neutrophils 2 % 02/01/18 11:00 Fluid Lymphocytes 50 % 02/01/18 11:00 Fluid Monocytes 48 % 02/01/18 11:00 Fluid Glucose 75.0 mg/dL 02/01/18 11:00 Fluid Total Protein 2.3 g/dL 02/01/18 11:00 Fluid Amylase 61 U/L 02/01/18 11:00 Random Vancomycin 22.5 ug/mL (5.0-40.0) 02/04/18 05:52 Coccidioides Ab Negative (Neg:<1:2) 02/19/18 05:27 TB (QFT) Gold In Tube Negative (Negative) 02/18/18 19:50 TB Test (QFT) Mitogen 7.52 IU/mL 02/18/18 19:50 TB Test (QFT) Antigen 0.06 IU/mL 02/18/18 19:50 TB Test Antigen - Nil 0.00 IU/mL 02/18/18 19:50 TB Test TB - Nil 0.06 IU/mL 02/18/18 19:50 TB Test (QFT) Interp 02/18/18 19:50 Blood Type O POSITIVE 02/20/18 07:00 Antibody Screen NEGATIVE 02/20/18 07:00 - Physical Exam Vitals and I&O: Vital Signs Temp 97.2 F 02/24/18 10:00 Pulse 63 02/24/18 10:00 Resp 20 02/24/18 10:00 BP 120/59 02/24/18 10:00 Pulse Ox 99 02/24/18 10:00 Intake & Output 02/23/18 02/24/18 02/24/18 18:59 06:59 18:59 Intake Total 650 100 Output Total 0 100 Balance 650 0 Weight (lbs) 68.039 kg 71.668 kg Intake: Intake, IV Amount 50 Cefepime 1 gm In Sodium 50 Chloride 0.9% 50 ml @ 100 mls/hr IV Q24H [facility] Rx#: [id number] Oral 600 100 Output: Chest Tube Drainage 100 Right Lower Anterior 100 Chest Urine 0 0 Other: Weight Source Bedscale Bedscale Active Medications: Current Medications Acetaminophen (Tylenol) 650 mg PO Q6HR PRN PRN Reason: PAIN Stop: 03/30/18 23:07 Acetaminophen/Hydrocodone Bitart ([place] 5mg/325mg) 2 tab PO Q4H PRN PRN Reason: Pain (Moderate) Stop: 03/30/18 23:16 Last Admin: 02/18/18 22:42 Dose: 2 tab Al Hydrox/Mg Hydrox/Simethicone (Maalox) 30 ml PO Q4H PRN PRN Reason: Heartburn Stop: 04/17/18 22:02 Last Admin: 02/16/18 22:29 Dose: 30 ml Albuterol Sulfate (Albuterol 2.5mg/3ml Neb Ud) 2.5 mg HHN Q1H PRN PRN Reason: Respiratory Distress Stop: 03/31/18 07:59 Last Admin: 02/01/18 15:33 Dose: 2.5 mg Albuterol/Ipratropium (Duoneb Neb) 3 ml HHN Q4HRT [facility] Stop: 03/31/18 14:59 Last Admin: 02/24/18 07:47 Dose: Not Given Atorvastatin Calcium (Lipitor) 40 mg PO HS [facility] Stop: 03/31/18 20:59 Last Admin: 02/23/18 21:15 Dose: 40 mg Cinacalcet (Sensipar) 30 mg PO DAILY [facility] Stop: 03/31/18 08:59 Last Admin: 02/24/18 09:47 Dose: 30 mg Diclofenac Sodium (Voltaren) 50 mg PO BID [facility] Stop: 04/01/18 08:59 Last Admin: 02/24/18 09:48 Dose: 50 mg Docusate Sodium (Colace) 100 mg PO DAILY [facility] Stop: 03/31/18 08:59 Last Admin: 02/24/18 09:47 Dose: 100 mg Famotidine (Pepcid) 20 mg PO DAILY [facility] Stop: 04/18/18 08:59 Last Admin: 02/24/18 09:46 Dose: 20 mg Hydromorphone HCl (Dilaudid) 2 mg IVP Q4HR PRN PRN Reason: chest pain Stop: 04/21/18 13:55 Last Admin: 02/23/18 04:55 Dose: 2 mg Sodium Chloride (Nacl 0.9%) 1,000 mls @ 60 mls/hr IV .[id number] [facility] Stop: 02/26/18 19:47 Last Admin: 02/21/18 16:43 Dose: 60 mls/hr Cefepime HCl 1 gm/ Dextrose 50 mls @ 100 mls/hr IV Q24H [facility] Stop: 04/26/18 10:59 Ipratropium [place] (Atrovent Neb 0.5mg/2.5ml) 0.5 mg HHN Q6HRT [facility] Stop: 03/31/18 12:59 Last Admin: 02/23/18 14:22 Dose: Not Given Lactobacillus Rhamnosus (Culturelle 15b) 1 each PO DAILY [facility] Stop: 04/15/18 08:59 Last Admin: 02/24/18 09:46 Dose: 1 each Megestrol Acetate (Megace) 400 mg PO DAILY [facility]; Protocol Stop: 03/31/18 08:59 Last Admin: 02/24/18 09:46 Dose: 400 mg Midodrine (Proamatine) 10 mg PO TID [facility] Stop: 04/16/18 00:29 Last Admin: 02/24/18 09:46 Dose: 10 mg Miscellaneous (Clinical Monitoring) 1 ea MC DAILY PRN PRN Reason: RENAL Stop: 04/08/18 08:30 Miscellaneous (Probiotic Screen) 1 ea PRN PRN PRN Reason: PROTOCOL Stop: 04/14/18 09:44 Sevelamer Carbonate (Renvela) 800 mg PO TID [facility] Stop: 03/30/18 23:14 Last Admin: 02/24/18 09:47 Dose: 800 mg Vitamin B Complex/Vit C/Folic Acid (Vitamin B Complex W/Vitamin C) 1 tab PO DAILY [facility] Stop: 03/31/18 08:59 Last Admin: 02/24/18 09:47 Dose: 1 tab General: Alert, Oriented x3, Cooperative, No acute distress HEENT: Atraumatic, PERRLA, EOMI, Mucous membr. moist/pink Neck: Supple, +2 carotid pulse wo bruit Cardiovascular: Regular rate, Normal S1, Normal S2 Lungs: Other (increased BS right lung field, (+) chest tube) Abdomen: Bowel sounds, Soft Extremities: no Edema Neurological: Sensation intact Skin: no Rash Psych/Mental Status: Mood NL - Procedures Procedures: Procedures Procedure Code Date DRAINAGE OF R PLEURAL CAV WITH DRAIN DEV, PERC APPROACH [id number] 01/29/18 DRAINAGE OF RIGHT LOWER LUNG LOBE, ENDO, DIAGN [id number] 01/29/18 Assessment/Plan - Problem List Patient Problems: All Active Problems RIGHT FACIAL SWELLING AND PAIN (Acute) Nutritional Asmnt/Malnutr-PDOC - Dietary Evaluation Malnutrition Findings (Please click <Entered> for more info): Nutritional Asmnt/Malnutrition Start: 02/03/18 12: 10 Text: Status: Complete Freq: Protocol: Document 02/03/18 12:10 [email or web address] (Rec: 02/03/18 12:31 [email or web address] [email or web address]) Nutritional Asmnt/Malnutrition Patient General Information Nutritional Screening Moderate Risk Diagnosis Rt facuial cellulitis, rt pleural effusion Pertinent Medical Hx/Surgical Hx ESRD on dialysis x 7 years, COPD, hyperlipidemia, Type 2 diabetes Subjective Information Per H&P, patient was on peritoneal dialysis up to a few months ago when he was diagnosed with peritonitis ( now on HD TTS). Per nursing notes, pt refusing some medications. Diet education not appropriate at this time. Current Diet Order/ Nutrition Support 60 gm CCHO, 1200 ml fluid restriction Patient / S.O Not Indicated Pertinent Medications lipitor, Sensipar, colace, lasix, Epogen, Megacem abx, Renvela, Vitamin B complex with C Pertinent Labs ((02/02) Cr 4.5, Ca 8.5, albumin 24 Nutritional Hx/Data Height 1.68 m Height (Calculated Centimeters) 167.6 Current Weight (lbs) 79.379 kg Weight (Calculated Kilograms) 79.4 Weight (Calculated Grams) 90636.7 Copen Body Weight 142 % Copen Body Weight 123 Body Mass Index (BMI) 28.2 Recent Weight Change No Weight Status Overweight GI Symptoms GI Symptoms None Last BM 02/02 x 1 Difficult in: None Food Allergies No Cultural/Ethnic/Jain Belief none indicated Usual diet at home unknown Skin Integrity/Comment: Ba 15, cellulitis facial Current %PO Good (75-100%) Estimated Nutritional Goals BEE in Kcals: Adj wt of IBW Calories/Kcals/Kg 27-32 kcal/kg using 68.2 kg Adj wt Kcals Calculated 0345-0991 kcal/day Protein: Adj wt of IBW Protein g/k.2-1.5 gm/kg (HD) Protein Calculated 80-100 gm/day Fluid: ml Per MD due to HD Nutritional Problem 1. Problem Problem Increased nutrient needs related to Etiology impaired skin integrity/ dialysis aeb Signs/Symptoms: Facial cellulitis and on HD Intervention/Recommendation Comments Consider modifying diet to 2gm sodium. Glucose/HG1AC low, no need for Diabetic restriction . Continue to monitor K and Phosphorus levels and need for Renal diet (not needed at this time.) Consider Prosource with meals for added protein due to cellulitis and HD. Expected Outcomes/Goals Expected Outcomes/Goals oral intake to meet >75% of nutrient needs, nutritino related labs normalize, weight stable.
--- NOTE | 2018-02-24 13:21 | General Progress Note ---
Subjective - Review of Systems Service Date: 02/24/18 Subjective: sleeping, comfortable Objective - Results Result Diagrams: 02/24/18 05:20 02/24/18 05:20 Recent Labs: Laboratory Last Values WBC 9.4 Th/cmm (4.8-10.8) 02/24/18 05:20 RBC 3.11 Mil/cmm (3.80-5.80) L 02/24/18 05:20 Hgb 9.2 gm/dL (12-16) L 02/24/18 05:20 Hct 28.1 % (41.0-60) L 02/24/18 05:20 MCV 90.5 fl (80-99) 02/24/18 05:20 MCH 29.6 pg (27.0-31.0) 02/24/18 05:20 MCHC Differential 32.7 pg (28.0-36.0) 02/24/18 05:20 RDW 15.2 % (11.5-20.0) 02/24/18 05:20 Plt Count 262 Th/cmm (150-400) 02/24/18 05:20 MPV 6.6 fl 02/24/18 05:20 Neutrophils % 62.8 % (40.0-80.0) 02/24/18 05:20 Lymphocytes % 17.0 % (20.0-50.0) L 02/24/18 05:20 Monocytes % 10.3 % (2.0-10.0) H 02/24/18 05:20 Eosinophils % 8.7 % (0.0-5.0) H 02/24/18 05:20 Basophils % 1.2 % (0.0-2.0) 02/24/18 05:20 ESR 87 mm/hr (0-20) H 01/31/18 04:15 PT 10.2 SECONDS (9.5-11.5) 02/20/18 09:40 INR 0.98 (0.5-1.4) 02/20/18 09:40 PTT (Actin FS) 30.6 SECONDS (26.0-38.0) 02/20/18 09:40 Sodium 132 mEq/L (136-145) L 02/24/18 05:20 Potassium 3.7 mEq/L (3.5-5.1) 02/24/18 05:20 Chloride 104 mEq/L (98-107) 02/24/18 05:20 Carbon Dioxide 23.6 mEq/L (21.0-31.0) 02/24/18 05:20 Anion Gap 8.1 (7.0-16.0) 02/24/18 05:20 BUN 20 mg/dL (7-25) 02/24/18 05:20 Creatinine 4.7 mg/dL (0.7-1.3) H* 02/24/18 05:20 Est GFR ( Amer) 16.2 ml/min (>90) 02/24/18 05:20 Est GFR (Non-Af Amer) 13.4 ml/min 02/24/18 05:20 BUN/Creatinine Ratio 4.3 02/24/18 05:20 Glucose 77 mg/dL (70-105) 02/24/18 05:20 POC Glucose 106 MG/DL (70 - 105) H 02/08/18 12:11 Hemoglobin A1c % 3.5 % (4.0-6.0) L 01/31/18 04:15 Whole Bld Lactic Acid 0.55 mmol/L (0.60-1.99) L 01/29/18 16:42 Calcium 8.4 mg/dL (8.6-10.3) L 02/24/18 05:20 Phosphorus 4.1 mg/dL (2.5-5.0) 01/31/18 04:15 Magnesium 2.1 mg/dL (1.9-2.7) 02/24/18 05:20 Total Bilirubin 0.4 mg/dL (0.3-1.0) 02/23/18 04:45 AST 13 U/L (13-39) 02/23/18 04:45 ALT 6 U/L (7-52) L 02/23/18 04:45 Alkaline Phosphatase 59 U/L (34-104) 02/23/18 04:45 Creatine Kinase 12 U/L (30-223) L 01/29/18 16:42 Troponin I 0.02 ng/mL (0.01-0.05) 01/29/18 16:42 C-Reactive Protein 11.4 mg/dL (0.0-0.9) H 01/31/18 04:15 Total Protein 5.1 gm/dL (6.0-8.3) L 02/23/18 04:45 Albumin 2.1 gm/dL (4.2-5.5) L 02/23/18 04:45 Globulin 3.0 gm/dL 02/23/18 04:45 Albumin/Globulin Ratio 0.7 (1.0-1.8) L 02/23/18 04:45 Triglycerides 72 mg/dL (<150) 01/31/18 04:15 Cholesterol 97 mg/dL (<200) 01/31/18 04:15 LDL Cholesterol Direct 45 mg/dL (75-193) L 01/31/18 04:15 HDL Cholesterol 36 mg/dL (23-92) 01/31/18 04:15 TSH 2.15 uIU/ml (0.34-5.60) 01/31/18 04:15 PTH Intact 36 pg/mL (15-65) 02/01/18 05:22 Urine Source CLEAN C 02/17/18 16:59 Urine Color YELLOW 02/17/18 16:59 Urine Clarity HAZY (CLEAR) 02/17/18 16:59 Urine pH 8.5 (4.6 - 8.0) 02/17/18 16:59 Ur Specific [place] 1.020 (1.005-1.030) 02/17/18 16:59 Urine Protein >=300 mg/dL (NEGATIVE) 02/17/18 16:59 Urine Glucose (UA) 100 mg/dL (NEGATIVE) H 02/17/18 16:59 Urine Ketones NEGATIVE mg/dL (NEGATIVE) 02/17/18 16:59 Urine Blood LARGE (NEGATIVE) H 02/17/18 16:59 Urine Nitrate NEGATIVE (NEGATIVE) 02/17/18 16:59 Urine Bilirubin NEGATIVE (NEGATIVE) 02/17/18 16:59 Urine Urobilinogen 0.2 E.U./dL (0.2 - 1.0) 02/17/18 16:59 Ur Leukocyte Esterase SMALL (NEGATIVE) H 02/17/18 16:59 Urine RBC 25-50 /hpf (0-5) H 02/17/18 16:59 Urine WBC 6-10 /hpf (0-5) 02/17/18 16:59 Ur Epithelial Cells MODERATE /lpf (FEW) 02/17/18 16:59 Urine Bacteria FEW /hpf (NONE SEEN) 02/17/18 16:59 Fluid Source PLEURAL 02/01/18 11:00 Fluid Color PALE YELLOW 02/01/18 11:00 Fluid Appearance HAZY 02/01/18 11:00 Fluid WBC 149 /cumm 02/01/18 11:00 Fluid RBC 185 /cumm 02/01/18 11:00 Fluid Neutrophils 2 % 02/01/18 11:00 Fluid Lymphocytes 50 % 02/01/18 11:00 Fluid Monocytes 48 % 02/01/18 11:00 Fluid Glucose 75.0 mg/dL 02/01/18 11:00 Fluid Total Protein 2.3 g/dL 02/01/18 11:00 Fluid Amylase 61 U/L 02/01/18 11:00 Random Vancomycin 22.5 ug/mL (5.0-40.0) 02/04/18 05:52 Coccidioides Ab Negative (Neg:<1:2) 02/19/18 05:27 TB (QFT) Gold In Tube Negative (Negative) 02/18/18 19:50 TB Test (QFT) Mitogen 7.52 IU/mL 02/18/18 19:50 TB Test (QFT) Antigen 0.06 IU/mL 02/18/18 19:50 TB Test Antigen - Nil 0.00 IU/mL 02/18/18 19:50 TB Test TB - Nil 0.06 IU/mL 02/18/18 19:50 TB Test (QFT) Interp 02/18/18 19:50 Blood Type O POSITIVE 02/20/18 07:00 Antibody Screen NEGATIVE 02/20/18 07:00 - Physical Exam Vitals and I&O: Vital Signs Temp 97.8 F 02/24/18 12:00 Pulse 65 02/24/18 12:00 Resp 19 02/24/18 12:00 BP 116/58 02/24/18 12:00 Pulse Ox 100 02/24/18 12:00 Intake & Output 02/23/18 02/24/18 02/24/18 18:59 06:59 18:59 Intake Total 650 100 Output Total 0 100 Balance 650 0 Weight (lbs) 68.039 kg 71.668 kg Intake: Intake, IV Amount 50 Cefepime 1 gm In Sodium 50 Chloride 0.9% 50 ml @ 100 mls/hr IV Q24H [facility] Rx#: [id number] Oral 600 100 Output: Chest Tube Drainage 100 Right Lower Anterior 100 Chest Urine 0 0 Other: Weight Source Bedscale Bedscale Active Medications: Current Medications Acetaminophen (Tylenol) 650 mg PO Q6HR PRN PRN Reason: PAIN Stop: 03/30/18 23:07 Acetaminophen/Hydrocodone Bitart (Hansen 5mg/325mg) 2 tab PO Q4H PRN PRN Reason: Pain (Moderate) Stop: 03/30/18 23:16 Last Admin: 02/18/18 22:42 Dose: 2 tab Al Hydrox/Mg Hydrox/Simethicone (Maalox) 30 ml PO Q4H PRN PRN Reason: Heartburn Stop: 04/17/18 22:02 Last Admin: 02/16/18 22:29 Dose: 30 ml Albuterol Sulfate (Albuterol 2.5mg/3ml Neb Ud) 2.5 mg HHN Q1H PRN PRN Reason: Respiratory Distress Stop: 03/31/18 07:59 Last Admin: 02/01/18 15:33 Dose: 2.5 mg Albuterol/Ipratropium (Duoneb Neb) 3 ml HHN Q4HRT [facility] Stop: 03/31/18 14:59 Last Admin: 02/24/18 11:41 Dose: Not Given Atorvastatin Calcium (Lipitor) 40 mg PO HS [facility] Stop: 03/31/18 20:59 Last Admin: 02/23/18 21:15 Dose: 40 mg Cinacalcet (Sensipar) 30 mg PO DAILY [facility] Stop: 03/31/18 08:59 Last Admin: 02/24/18 09:47 Dose: 30 mg Diclofenac Sodium (Voltaren) 50 mg PO BID [facility] Stop: 04/01/18 08:59 Last Admin: 02/24/18 09:48 Dose: 50 mg Docusate Sodium (Colace) 100 mg PO DAILY [facility] Stop: 03/31/18 08:59 Last Admin: 02/24/18 09:47 Dose: 100 mg Famotidine (Pepcid) 20 mg PO DAILY [facility] Stop: 04/18/18 08:59 Last Admin: 02/24/18 09:46 Dose: 20 mg Hydromorphone HCl (Dilaudid) 2 mg IVP Q4HR PRN PRN Reason: chest pain Stop: 04/21/18 13:55 Last Admin: 02/23/18 04:55 Dose: 2 mg Sodium Chloride (Nacl 0.9%) 1,000 mls @ 60 mls/hr IV .[id number] [facility] Stop: 02/26/18 19:47 Last Admin: 02/21/18 16:43 Dose: 60 mls/hr Cefepime HCl 1 gm/ Dextrose 50 mls @ 100 mls/hr IV Q24H [facility] Stop: 04/26/18 10:59 Ipratropium [place] (Atrovent Neb 0.5mg/2.5ml) 0.5 mg HHN Q6HRT [facility] Stop: 03/31/18 12:59 Last Admin: 02/23/18 14:22 Dose: Not Given Lactobacillus Rhamnosus (Culturelle 15b) 1 each PO DAILY [facility] Stop: 04/15/18 08:59 Last Admin: 02/24/18 09:46 Dose: 1 each Megestrol Acetate (Megace) 400 mg PO DAILY [facility]; Protocol Stop: 03/31/18 08:59 Last Admin: 02/24/18 09:46 Dose: 400 mg Midodrine (Proamatine) 10 mg PO TID [facility] Stop: 04/16/18 00:29 Last Admin: 02/24/18 09:46 Dose: 10 mg Miscellaneous (Clinical Monitoring) 1 ea DAILY PRN PRN Reason: RENAL Stop: 04/08/18 08:30 Miscellaneous (Probiotic Screen) 1 [facility] PRN PRN PRN Reason: PROTOCOL Stop: 04/14/18 09:44 Sevelamer Carbonate (Renvela) 800 mg PO TID [facility] Stop: 03/30/18 23:14 Last Admin: 02/24/18 09:47 Dose: 800 mg Vitamin B Complex/Vit C/Folic Acid (Vitamin B Complex W/Vitamin C) 1 tab PO DAILY [facility] Stop: 03/31/18 08:59 Last Admin: 02/24/18 09:47 Dose: 1 tab General: Alert, Oriented x3, Cooperative, No acute distress HEENT: Atraumatic, PERRLA, EOMI, Mucous membr. moist/pink Neck: Supple, +2 carotid pulse wo bruit Cardiovascular: Regular rate, Normal S1, Normal S2 Lungs: Other (increased BS right lung field, (+) chest tube) Abdomen: Bowel sounds, Soft Extremities: no Edema Neurological: Sensation intact Skin: no Rash Psych/Mental Status: Mood NL - Procedures Procedures: Procedures Procedure Code Date DRAINAGE OF R PLEURAL CAV WITH DRAIN DEV, PERC APPROACH [id number] 01/29/18 DRAINAGE OF RIGHT LOWER LUNG LOBE, ENDO, DIAGN [id number] 01/29/18 Assessment/Plan - Problem List Patient Problems: All Active Problems RIGHT FACIAL SWELLING AND PAIN (Acute) - Assessment Assessment: ESRD on HD Right facial cellulitis Right lung opacification 2/2 effusion Cx UTI T2DM Anemia of CKD right PTX s/p chest tube S/P right lung surgery - Plan Plan: Lab - Result Diagrams 01/31/18 04:15 01/31/18 04:15 Current Medications Acetaminophen (Tylenol) 650 mg PO Q6HR PRN PRN Reason: PAIN Stop: 03/30/18 23:07 Acetaminophen/Hydrocodone Bitart (Hansen 5mg/325mg) 2 tab PO Q4H PRN PRN Reason: Pain (Moderate) Stop: 03/30/18 23:16 Last Admin: 01/29/18 23:29 Dose: 2 tab Acetylcysteine (Mucomyst 20%) 2 ml HHN Q4HRT [facility] Stop: 03/31/18 14:59 Last Admin: 01/31/18 11:27 Dose: 2 ml Albuterol Sulfate (Albuterol 2.5mg/3ml Neb Ud) 2.5 mg HHN Q1H PRN PRN Reason: Respiratory Distress Stop: 03/31/18 07:59 Albuterol/Ipratropium (Duoneb Neb) 3 ml HHN Q4HRT [facility] Stop: 03/31/18 14:59 Last Admin: 01/31/18 11:27 Dose: 3 ml Atorvastatin Calcium (Lipitor) 40 mg PO HS [facility] Stop: 03/31/18 20:59 Last Admin: 01/30/18 21:19 Dose: 40 mg Cinacalcet (Sensipar) 30 mg PO DAILY [facility] Stop: 03/31/18 08:59 Last Admin: 01/31/18 08:28 Dose: Not Given Diclofenac Sodium (Voltaren) 50 mg PO BID [facility] Stop: 04/01/18 08:59 Last Admin: 01/31/18 08:25 Dose: 50 mg Docusate Sodium (Colace) 100 mg PO DAILY [facility] Stop: 03/31/18 08:59 Last Admin: 01/31/18 08:26 Dose: 100 mg Epoetin Vishal (Epogen) 10,000 units SUBQ MWF@1600 [facility] Stop: 04/01/18 15:59 Furosemide (Lasix) 40 mg PO DAILY [facility] Stop: 03/31/18 08:59 Last Admin: 01/31/18 08:26 Dose: 40 mg Heparin Sodium (Porcine) (Heparin) 5,000 units IVP ONCE@2100 [facility] Stop: 01/31/18 21:01 Last Admin: 01/30/18 21:18 Dose: 5,000 units Ceftriaxone Sodium 1 gm/ (Sodium Chloride) 50 mls @ 100 mls/hr IV Q24HR [facility] Stop: 03/31/18 18:59 Last Infusion: 01/30/18 21:50 Dose: Infused Ipratropium [place] (Atrovent Neb 0.5mg/2.5ml) 0.5 mg HHN Q6HRT [facility] Stop: 03/31/18 12:59 Last Admin: 01/31/18 00:57 Dose: Not Given Lactobacillus Rhamnosus (Culturelle 15b) 1 each PO DAILY [facility] Stop: 03/30/18 23:14 Last Admin: 01/31/18 08:27 Dose: 1 each Megestrol Acetate (Megace) 400 mg PO DAILY [facility] PRN Reason: Protocol Stop: 03/31/18 08:59 Last Admin: 01/31/18 09:31 Dose: Not Given Metoprolol Tartrate (Lopressor) 50 mg PO BID [facility] Stop: 03/30/18 23:14 Last Admin: 01/31/18 08:27 Dose: 50 mg Midodrine (Proamatine) 5 mg PO TID PRN PRN Reason: HYPOTENSION Stop: 03/30/18 23:07 Miscellaneous (Vancomycin Iv Per Pharmacy) 1 ea MC PRN [facility] Stop: 03/30/18 21:44 Morphine Sulfate (Morphine) 1 mg IVP Q4HR PRN PRN Reason: Pain (Severe) Stop: 03/30/18 23:17 Last Admin: 01/31/18 08:17 Dose: 1 mg Sevelamer Carbonate (Renvela) 800 mg PO TID [facility] Stop: 03/30/18 23:14 Last Admin: 01/31/18 08:28 Dose: 800 mg Vitamin B Complex/Vit C/Folic Acid (Vitamin B Complex W/Vitamin C) 1 tab PO DAILY [facility] Stop: 03/31/18 08:59 Last Admin: 01/31/18 08:28 Dose: 1 Lab - Result Diagrams 02/24/18 05:20 02/24/18 05:20 continue Rocephin WBC up to 9.4 bronchoscopy: no endobronchial lesion CXR: persistent right effusion, 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 today Nutritional Asmnt/Malnutr-PDOC - Dietary Evaluation Malnutrition Findings (Please click <Entered> for more info): Nutritional Asmnt/Malnutrition Start: 02/03/18 12: 10 Text: Status: Complete Freq: Protocol: Document 02/03/18 12:10 [email or web address] (Rec: 02/03/18 12:31 [email or web address] VALERIO- [id number]) Nutritional Asmnt/Malnutrition Patient General Information Nutritional Screening Moderate Risk Diagnosis Rt facuial cellulitis, rt pleural effusion Pertinent Medical Hx/Surgical Hx ESRD on dialysis x 7 years, COPD, hyperlipidemia, Type 2 diabetes Subjective Information Per H&P, patient was on peritoneal dialysis up to a few months ago when he was diagnosed with peritonitis ( now on HD TTS). Per nursing notes, pt refusing some medications. Diet education not appropriate at this time. Current Diet Order/ Nutrition Support 60 gm CCHO, 1200 ml fluid restriction Patient / S.O Not Indicated Pertinent Medications lipitor, Sensipar, colace, lasix, Epogen, Megacem abx, Renvela, Vitamin B complex with C Pertinent Labs ((02/02) Cr 4.5, Ca 8.5, albumin 24 Nutritional Hx/Data Height 1.68 m Height (Calculated Centimeters) 167.6 Current Weight (lbs) 79.379 kg Weight (Calculated Kilograms) 79.4 Weight (Calculated Grams) 62436.7 [place] Body Weight 142 % [place] Body Weight 123 Body Mass Index (BMI) 28.2 Recent Weight Change No Weight Status Overweight GI Symptoms GI Symptoms None Last BM 02/02 x 1 Difficult in: None Food Allergies No Cultural/Ethnic/Hoahaoism Belief none indicated Usual diet at home unknown Skin Integrity/Comment: Ba 15, cellulitis facial Current %PO Good (75-100%) Estimated Nutritional Goals BEE in Kcals: Adj wt of IBW Calories/Kcals/Kg 27-32 kcal/kg using 68.2 kg Adj wt Kcals Calculated 0400-5111 kcal/day Protein: Adj wt of IBW Protein g/k.2-1.5 gm/kg (HD) Protein Calculated 80-100 gm/day Fluid: ml Per MD due to HD Nutritional Problem 1. Problem Problem Increased nutrient needs related to Etiology impaired skin integrity/ dialysis aeb Signs/Symptoms: Facial cellulitis and on HD Intervention/Recommendation Comments Consider modifying diet to 2gm sodium. Glucose/HG1AC low, no need for Diabetic restriction . Continue to monitor K and Phosphorus levels and need for Renal diet (not needed at this time.) Consider Prosource with meals for added protein due to cellulitis and HD. Expected Outcomes/Goals Expected Outcomes/Goals oral intake to meet >75% of nutrient needs, nutritino related labs normalize, weight stable.
[2018-02-24] MEDS ORDERED: INSULIN ASPART SLIDING SCALE 100 UNITS/ML UNIT SUBQ SCH (18:00)
[2018-02-24] MEDS: Ipratropium Neb 0.5 mg/2.5 mL UD HHN SCH (18:54)
[2018-02-24] MEDS: HYDROmorphone 2 mg/mL 1mL Vial IVP PRN (22:36)
[2018-02-25] MEDS: Albuterol/Ipratropium Neb 3 ML AERS HHN SCH ×6 (03:00→22:56)
[2018-02-25 04:46] LABS: % EOSINOPHILS 9.6 % (0.0-5.0); % LYMPHOCYTES 23.3 % (20.0-50.0); % MONOCYTES 10.9 % (2.0-10.0); % NEUTROPHILS 55.2 % (40.0-80.0); BASOPHILE ABSOLUTE 0.1 Th/cumm (0-0.2); EOSINOPHILE ABSOLUTE 0.8 Th/cmm (0.1-0.4); HEMATOCRIT 27.6 % (41.0-60); HEMOGLOBIN 9.1 gm/dL (12-16); LYMPHOCYTE ABSOLUTE 1.9 Th/cmm (1.5-3.0); MEAN CELL VOLUME 90.4 fl (80-99); MEAN CORPUSCULAR HEMOGLOBIN 29.7 pg (27.0-31.0); MEAN CORPUSCULAR HGB CONC 32.9 pg (28.0-36.0); MEAN PLATELET VOLUME 6.2 fl; MONOCYTE ABSOLUTE 0.9 Th/cmm (0.3-1.0); NEUTROPHILE ABSOLUTE 4.5 Th/cmm (1.8-8.0); PLATELET COUNT 258 Th/cmm (150-400); RED BLOOD COUNT 3.06 Mil/cmm (3.80-5.80); RED CELL DISTRIBUTION WIDTH 15.1 % (11.5-20.0); WHITE BLOOD COUNT 8.2 Th/cmm (4.8-10.8)
[2018-02-25 05:30] LABS: ANION GAP 9.2 (7.0-16.0); CARBON DIOXIDE 23.5 mEq/L (21.0-31.0); CREATININE - SERUM 3.2 mg/dL (0.7-1.3); GFR AFRICAN-AMERICAN 25.2 ml/min (>90); GFR NON AFRICAN-AMERICAN 20.8 ml/min; POTASSIUM SERUM 3.7 mEq/L (3.5-5.1)
[2018-02-25] MEDS: Sodium Chloride 0.9% 1,000 ML IV SCH (08:30)
[2018-02-25] MEDS: Lactobacillus Rhamnosus GG 15 Billion CFU CAP.SPRINK PO SCH (09:07)
[2018-02-25] MEDS: Vitamin B Complex w/Vitamin C Tab PO SCH (09:07)
--- NOTE | 2018-02-25 09:19 | General Progress Note ---
Subjective - Review of Systems Service Date: 02/25/18 Events since last encounter: xray ordered for tomorrow Objective - Results Result Diagrams: 02/25/18 04:35 02/25/18 04:35 Recent Labs: Laboratory Last Values WBC 8.2 Th/cmm (4.8-10.8) 02/25/18 04:35 RBC 3.06 Mil/cmm (3.80-5.80) L 02/25/18 04:35 Hgb 9.1 gm/dL (12-16) L 02/25/18 04:35 Hct 27.6 % (41.0-60) L 02/25/18 04:35 MCV 90.4 fl (80-99) 02/25/18 04:35 MCH 29.7 pg (27.0-31.0) 02/25/18 04:35 MCHC Differential 32.9 pg (28.0-36.0) 02/25/18 04:35 RDW 15.1 % (11.5-20.0) 02/25/18 04:35 Plt Count 258 Th/cmm (150-400) 02/25/18 04:35 MPV 6.2 fl 02/25/18 04:35 Neutrophils % 55.2 % (40.0-80.0) 02/25/18 04:35 Lymphocytes % 23.3 % (20.0-50.0) 02/25/18 04:35 Monocytes % 10.9 % (2.0-10.0) H 02/25/18 04:35 Eosinophils % 9.6 % (0.0-5.0) H 02/25/18 04:35 Basophils % 1.0 % (0.0-2.0) 02/25/18 04:35 ESR 87 mm/hr (0-20) H 01/31/18 04:15 PT 10.2 SECONDS (9.5-11.5) 02/20/18 09:40 INR 0.98 (0.5-1.4) 02/20/18 09:40 PTT (Actin FS) 30.6 SECONDS (26.0-38.0) 02/20/18 09:40 Sodium 136 mEq/L (136-145) 02/25/18 04:35 Potassium 3.7 mEq/L (3.5-5.1) 02/25/18 04:35 Chloride 107 mEq/L (98-107) 02/25/18 04:35 Carbon Dioxide 23.5 mEq/L (21.0-31.0) 02/25/18 04:35 Anion Gap 9.2 (7.0-16.0) 02/25/18 04:35 BUN 11 mg/dL (7-25) 02/25/18 04:35 Creatinine 3.2 mg/dL (0.7-1.3) H 02/25/18 04:35 Est GFR ( Amer) 25.2 ml/min (>90) 02/25/18 04:35 Est GFR (Non-Af Amer) 20.8 ml/min 02/25/18 04:35 BUN/Creatinine Ratio 3.4 02/25/18 04:35 Glucose 61 mg/dL (70-105) L 02/25/18 04:35 POC Glucose 106 MG/DL (70 - 105) H 02/08/18 12:11 Hemoglobin A1c % 3.5 % (4.0-6.0) L 01/31/18 04:15 Whole Bld Lactic Acid 0.55 mmol/L (0.60-1.99) L 01/29/18 16:42 Calcium 8.0 mg/dL (8.6-10.3) L 02/25/18 04:35 Phosphorus 4.1 mg/dL (2.5-5.0) 01/31/18 04:15 Magnesium 2.1 mg/dL (1.9-2.7) 02/24/18 05:20 Total Bilirubin 0.4 mg/dL (0.3-1.0) 02/23/18 04:45 AST 13 U/L (13-39) 02/23/18 04:45 ALT 6 U/L (7-52) L 02/23/18 04:45 Alkaline Phosphatase 59 U/L (34-104) 02/23/18 04:45 Creatine Kinase 12 U/L (30-223) L 01/29/18 16:42 Troponin I 0.02 ng/mL (0.01-0.05) 01/29/18 16:42 C-Reactive Protein 11.4 mg/dL (0.0-0.9) H 01/31/18 04:15 Total Protein 5.1 gm/dL (6.0-8.3) L 02/23/18 04:45 Albumin 2.1 gm/dL (4.2-5.5) L 02/23/18 04:45 Globulin 3.0 gm/dL 02/23/18 04:45 Albumin/Globulin Ratio 0.7 (1.0-1.8) L 02/23/18 04:45 Triglycerides 72 mg/dL (<150) 01/31/18 04:15 Cholesterol 97 mg/dL (<200) 01/31/18 04:15 LDL Cholesterol Direct 45 mg/dL (75-193) L 01/31/18 04:15 HDL Cholesterol 36 mg/dL (23-92) 01/31/18 04:15 TSH 2.15 uIU/ml (0.34-5.60) 01/31/18 04:15 PTH Intact 36 pg/mL (15-65) 02/01/18 05:22 Urine Source CLEAN C 02/17/18 16:59 Urine Color YELLOW 02/17/18 16:59 Urine Clarity HAZY (CLEAR) 02/17/18 16:59 Urine pH 8.5 (4.6 - 8.0) 02/17/18 16:59 Ur Specific [place] 1.020 (1.005-1.030) 02/17/18 16:59 Urine Protein >=300 mg/dL (NEGATIVE) 02/17/18 16:59 Urine Glucose (UA) 100 mg/dL (NEGATIVE) H 02/17/18 16:59 Urine Ketones NEGATIVE mg/dL (NEGATIVE) 02/17/18 16:59 Urine Blood LARGE (NEGATIVE) H 02/17/18 16:59 Urine Nitrate NEGATIVE (NEGATIVE) 02/17/18 16:59 Urine Bilirubin NEGATIVE (NEGATIVE) 02/17/18 16:59 Urine Urobilinogen 0.2 E.U./dL (0.2 - 1.0) 02/17/18 16:59 Ur Leukocyte Esterase SMALL (NEGATIVE) H 02/17/18 16:59 Urine RBC 25-50 /hpf (0-5) H 02/17/18 16:59 Urine WBC 6-10 /hpf (0-5) 02/17/18 16:59 Ur Epithelial Cells MODERATE /lpf (FEW) 02/17/18 16:59 Urine Bacteria FEW /hpf (NONE SEEN) 02/17/18 16:59 Fluid Source PLEURAL 02/01/18 11:00 Fluid Color PALE YELLOW 02/01/18 11:00 Fluid Appearance HAZY 02/01/18 11:00 Fluid WBC 149 /cumm 02/01/18 11:00 Fluid RBC 185 /cumm 02/01/18 11:00 Fluid Neutrophils 2 % 02/01/18 11:00 Fluid Lymphocytes 50 % 02/01/18 11:00 Fluid Monocytes 48 % 02/01/18 11:00 Fluid Glucose 75.0 mg/dL 02/01/18 11:00 Fluid Total Protein 2.3 g/dL 02/01/18 11:00 Fluid Amylase 61 U/L 02/01/18 11:00 Random Vancomycin 22.5 ug/mL (5.0-40.0) 02/04/18 05:52 Coccidioides Ab Negative (Neg:<1:2) 02/19/18 05:27 TB (QFT) Gold In Tube Negative (Negative) 02/18/18 19:50 TB Test (QFT) Mitogen 7.52 IU/mL 02/18/18 19:50 TB Test (QFT) Antigen 0.06 IU/mL 02/18/18 19:50 TB Test Antigen - Nil 0.00 IU/mL 02/18/18 19:50 TB Test TB - Nil 0.06 IU/mL 02/18/18 19:50 TB Test (QFT) Interp 02/18/18 19:50 Blood Type O POSITIVE 02/20/18 07:00 Antibody Screen NEGATIVE 02/20/18 07:00 - Physical Exam Vitals and I&O: Vital Signs Temp 99.1 F 02/24/18 23:58 Pulse 63 02/25/18 07:59 Resp 18 02/25/18 07:59 BP 120/56 02/25/18 07:00 Pulse Ox 96 02/25/18 07:59 Intake & Output 02/24/18 02/25/18 02/25/18 18:59 06:59 18:59 Intake Total 400 1300 Output Total 1950 60 Balance -1550 1240 Weight (lbs) 71.469 kg 73.754 kg Intake: Intake, IV Amount 1000 Sodium Chloride 0.9% 1, 1000 000 ml @ 60 mls/hr IV . [id number] [facility] Rx#:[id number] Oral 400 300 Output: Chest Tube Drainage 50 60 Right Lower Anterior 50 60 Chest Urine 0 Hemodialysis 1900 Other: # Voids 1 # Bowel Movements 0 Weight Source Bedscale Bedscale Active Medications: Current Medications Acetaminophen (Tylenol) 650 mg PO Q6HR PRN PRN Reason: PAIN Stop: 03/30/18 23:07 Acetaminophen/Hydrocodone Bitart ([place] 5mg/325mg) 2 tab PO Q4H PRN PRN Reason: Pain (Moderate) Stop: 03/30/18 23:16 Last Admin: 02/18/18 22:42 Dose: 2 tab Al Hydrox/Mg Hydrox/Simethicone (Maalox) 30 ml PO Q4H PRN PRN Reason: Heartburn Stop: 04/17/18 22:02 Last Admin: 02/16/18 22:29 Dose: 30 ml Albuterol Sulfate (Albuterol 2.5mg/3ml Neb Ud) 2.5 mg HHN Q1H PRN PRN Reason: Respiratory Distress Stop: 03/31/18 07:59 Last Admin: 02/01/18 15:33 Dose: 2.5 mg Albuterol/Ipratropium (Duoneb Neb) 3 ml HHN Q4HRT [facility] Stop: 03/31/18 14:59 Last Admin: 02/25/18 07:57 Dose: 3 ml Atorvastatin Calcium (Lipitor) 40 mg PO HS [facility] Stop: 03/31/18 20:59 Last Admin: 02/24/18 21:09 Dose: 40 mg Cinacalcet (Sensipar) 30 mg PO DAILY [facility] Stop: 03/31/18 08:59 Last Admin: 02/25/18 09:06 Dose: 30 mg Diclofenac Sodium (Voltaren) 50 mg PO BID [facility] Stop: 04/01/18 08:59 Last Admin: 02/25/18 09:07 Dose: 50 mg Docusate Sodium (Colace) 100 mg PO DAILY [facility] Stop: 03/31/18 08:59 Last Admin: 02/25/18 09:07 Dose: 100 mg Famotidine (Pepcid) 20 mg PO DAILY [facility] Stop: 04/18/18 08:59 Last Admin: 02/25/18 09:07 Dose: 20 mg Hydromorphone HCl (Dilaudid) 2 mg IVP Q4HR PRN PRN Reason: chest pain Stop: 04/21/18 13:55 Last Admin: 02/24/18 22:36 Dose: 2 mg Sodium Chloride (Nacl 0.9%) 1,000 mls @ 60 mls/hr IV .[id number] [facility] Stop: 02/26/18 19:47 Last Admin: 02/25/18 08:30 Dose: 60 mls/hr Cefepime HCl 1 gm/ Dextrose 50 mls @ 100 mls/hr IV Q24H [facility] Stop: 04/26/18 10:59 Ipratropium [place] (Atrovent Neb 0.5mg/2.5ml) 0.5 mg HHN Q6HRT [facility] Stop: 03/31/18 12:59 Last Admin: 02/24/18 18:54 Dose: Not Given Lactobacillus Rhamnosus (Culturelle 15b) 1 each PO DAILY [facility] Stop: 04/15/18 08:59 Last Admin: 02/25/18 09:07 Dose: 1 each Megestrol Acetate (Megace) 400 mg PO DAILY [facility]; Protocol Stop: 03/31/18 08:59 Last Admin: 02/25/18 09:08 Dose: Not Given Midodrine (Proamatine) 10 mg PO TID [facility] Stop: 04/16/18 00:29 Last Admin: 02/25/18 09:08 Dose: Not Given Miscellaneous (Clinical Monitoring) 1 ea [facility] DAILY PRN PRN Reason: RENAL Stop: 04/08/18 08:30 Miscellaneous (Probiotic Screen) 1 [facility] PRN PRN PRN Reason: PROTOCOL Stop: 04/14/18 09:44 Sevelamer Carbonate (Renvela) 800 mg PO TID [facility] Stop: 03/30/18 23:14 Last Admin: 02/25/18 09:07 Dose: 800 mg Vitamin B Complex/Vit C/Folic Acid (Vitamin B Complex W/Vitamin C) 1 tab PO DAILY [facility] Stop: 03/31/18 08:59 Last Admin: 02/25/18 09:07 Dose: 1 tab General: Alert, Oriented x3, Cooperative, No acute distress HEENT: Atraumatic, PERRLA, EOMI, Mucous membr. moist/pink Neck: Supple, +2 carotid pulse wo bruit Cardiovascular: Regular rate, Normal S1, Normal S2 Lungs: Other (increased BS right lung field, (+) chest tube) Abdomen: Bowel sounds, Soft Extremities: no Edema Neurological: Sensation intact Skin: no Rash Psych/Mental Status: Mood NL - Procedures Procedures: Procedures Procedure Code Date DRAINAGE OF R PLEURAL CAV WITH DRAIN DEV, PERC APPROACH [id number] 01/29/18 DRAINAGE OF RIGHT LOWER LUNG LOBE, ENDO, DIAGN [id number] 01/29/18 Assessment/Plan - Problem List Patient Problems: All Active Problems RIGHT FACIAL SWELLING AND PAIN (Acute) Nutritional Asmnt/Malnutr-PDOC - Dietary Evaluation Malnutrition Findings (Please click <Entered> for more info): Nutritional Asmnt/Malnutrition Start: 02/03/18 12: 10 Text: Status: Complete Freq: Protocol: Document 02/03/18 12:10 MMULHERN (Rec: 02/03/18 12:31 [email or web address] [email or web address] [email or web address]) Nutritional Asmnt/Malnutrition Patient General Information Nutritional Screening Moderate Risk Diagnosis Rt facuial cellulitis, rt pleural effusion Pertinent Medical Hx/Surgical Hx ESRD on dialysis x 7 years, COPD, hyperlipidemia, Type 2 diabetes Subjective Information Per H&P, patient was on peritoneal dialysis up to a few months ago when he was diagnosed with peritonitis ( now on HD TTS). Per nursing notes, pt refusing some medications. Diet education not appropriate at this time. Current Diet Order/ Nutrition Support 60 gm CCHO, 1200 ml fluid restriction Patient / S.O Not Indicated Pertinent Medications lipitor, Sensipar, colace, lasix, Epogen, Megacem abx, Renvela, Vitamin B complex with C Pertinent Labs ((02/02) Cr 4.5, Ca 8.5, albumin 24 Nutritional Hx/Data Height 1.68 m Height (Calculated Centimeters) 167.6 Current Weight (lbs) 79.379 kg Weight (Calculated Kilograms) 79.4 Weight (Calculated Grams) 86191.7 [place] Body Weight 142 % [place] Body Weight 123 Body Mass Index (BMI) 28.2 Recent Weight Change No Weight Status Overweight GI Symptoms GI Symptoms None Last BM 02/02 x 1 Difficult in: None Food Allergies No Cultural/Ethnic/Adventist Belief none indicated Usual diet at home unknown Skin Integrity/Comment: Ba 15, cellulitis facial Current %PO Good (75-100%) Estimated Nutritional Goals BEE in Kcals: Adj wt of IBW Calories/Kcals/Kg 27-32 kcal/kg using 68.2 kg Adj wt Kcals Calculated 2592-5094 kcal/day Protein: Adj wt of IBW Protein g/k.2-1.5 gm/kg (HD) Protein Calculated 80-100 gm/day Fluid: ml Per MD due to HD Nutritional Problem 1. Problem Problem Increased nutrient needs related to Etiology impaired skin integrity/ dialysis aeb Signs/Symptoms: Facial cellulitis and on HD Intervention/Recommendation Comments Consider modifying diet to 2gm sodium. Glucose/HG1AC low, no need for Diabetic restriction . Continue to monitor K and Phosphorus levels and need for Renal diet (not needed at this time.) Consider Prosource with meals for added protein due to cellulitis and HD. Expected Outcomes/Goals Expected Outcomes/Goals oral intake to meet >75% of nutrient needs, nutritino related labs normalize, weight stable.
--- NOTE | 2018-02-25 09:21 | Diagnostic Imaging Report ---
CHEST X-RAY: AP view INDICATION: Shortness of breath COMPARISON: 02/23/2018 FINDINGS: Support devices are stable. Right effusion is noted with right lung infiltrates. Mild cardiomegaly is noted. No evidence of gross pneumothorax. IMPRESSION: Right effusion and right lung infiltrates. Stable right chest tube is seen along the right apex. No gross pneumothorax identified.
--- NOTE | 2018-02-25 13:28 | General Progress Note ---
Subjective - Review of Systems Service Date: 02/25/18 Subjective: sleeping, comfortable Objective - Results Result Diagrams: 02/25/18 04:35 02/25/18 04:35 Recent Labs: Laboratory Last Values WBC 8.2 Th/cmm (4.8-10.8) 02/25/18 04:35 RBC 3.06 Mil/cmm (3.80-5.80) L 02/25/18 04:35 Hgb 9.1 gm/dL (12-16) L 02/25/18 04:35 Hct 27.6 % (41.0-60) L 02/25/18 04:35 MCV 90.4 fl (80-99) 02/25/18 04:35 MCH 29.7 pg (27.0-31.0) 02/25/18 04:35 MCHC Differential 32.9 pg (28.0-36.0) 02/25/18 04:35 RDW 15.1 % (11.5-20.0) 02/25/18 04:35 Plt Count 258 Th/cmm (150-400) 02/25/18 04:35 MPV 6.2 fl 02/25/18 04:35 Neutrophils % 55.2 % (40.0-80.0) 02/25/18 04:35 Lymphocytes % 23.3 % (20.0-50.0) 02/25/18 04:35 Monocytes % 10.9 % (2.0-10.0) H 02/25/18 04:35 Eosinophils % 9.6 % (0.0-5.0) H 02/25/18 04:35 Basophils % 1.0 % (0.0-2.0) 02/25/18 04:35 ESR 87 mm/hr (0-20) H 01/31/18 04:15 PT 10.2 SECONDS (9.5-11.5) 02/20/18 09:40 INR 0.98 (0.5-1.4) 02/20/18 09:40 PTT (Actin FS) 30.6 SECONDS (26.0-38.0) 02/20/18 09:40 Sodium 136 mEq/L (136-145) 02/25/18 04:35 Potassium 3.7 mEq/L (3.5-5.1) 02/25/18 04:35 Chloride 107 mEq/L (98-107) 02/25/18 04:35 Carbon Dioxide 23.5 mEq/L (21.0-31.0) 02/25/18 04:35 Anion Gap 9.2 (7.0-16.0) 02/25/18 04:35 BUN 11 mg/dL (7-25) 02/25/18 04:35 Creatinine 3.2 mg/dL (0.7-1.3) H 02/25/18 04:35 Est GFR ( Amer) 25.2 ml/min (>90) 02/25/18 04:35 Est GFR (Non-Af Amer) 20.8 ml/min 02/25/18 04:35 BUN/Creatinine Ratio 3.4 02/25/18 04:35 Glucose 61 mg/dL (70-105) L 02/25/18 04:35 POC Glucose 106 MG/DL (70 - 105) H 02/08/18 12:11 Hemoglobin A1c % 3.5 % (4.0-6.0) L 01/31/18 04:15 Whole Bld Lactic Acid 0.55 mmol/L (0.60-1.99) L 01/29/18 16:42 Calcium 8.0 mg/dL (8.6-10.3) L 02/25/18 04:35 Phosphorus 4.1 mg/dL (2.5-5.0) 01/31/18 04:15 Magnesium 2.1 mg/dL (1.9-2.7) 02/24/18 05:20 Total Bilirubin 0.4 mg/dL (0.3-1.0) 02/23/18 04:45 AST 13 U/L (13-39) 02/23/18 04:45 ALT 6 U/L (7-52) L 02/23/18 04:45 Alkaline Phosphatase 59 U/L (34-104) 02/23/18 04:45 Creatine Kinase 12 U/L (30-223) L 01/29/18 16:42 Troponin I 0.02 ng/mL (0.01-0.05) 01/29/18 16:42 C-Reactive Protein 11.4 mg/dL (0.0-0.9) H 01/31/18 04:15 Total Protein 5.1 gm/dL (6.0-8.3) L 02/23/18 04:45 Albumin 2.1 gm/dL (4.2-5.5) L 02/23/18 04:45 Globulin 3.0 gm/dL 02/23/18 04:45 Albumin/Globulin Ratio 0.7 (1.0-1.8) L 02/23/18 04:45 Triglycerides 72 mg/dL (<150) 01/31/18 04:15 Cholesterol 97 mg/dL (<200) 01/31/18 04:15 LDL Cholesterol Direct 45 mg/dL (75-193) L 01/31/18 04:15 HDL Cholesterol 36 mg/dL (23-92) 01/31/18 04:15 TSH 2.15 uIU/ml (0.34-5.60) 01/31/18 04:15 PTH Intact 36 pg/mL (15-65) 02/01/18 05:22 Urine Source CLEAN C 02/17/18 16:59 Urine Color YELLOW 02/17/18 16:59 Urine Clarity HAZY (CLEAR) 02/17/18 16:59 Urine pH 8.5 (4.6 - 8.0) 02/17/18 16:59 Ur Specific [place] 1.020 (1.005-1.030) 02/17/18 16:59 Urine Protein >=300 mg/dL (NEGATIVE) 02/17/18 16:59 Urine Glucose (UA) 100 mg/dL (NEGATIVE) H 02/17/18 16:59 Urine Ketones NEGATIVE mg/dL (NEGATIVE) 02/17/18 16:59 Urine Blood LARGE (NEGATIVE) H 02/17/18 16:59 Urine Nitrate NEGATIVE (NEGATIVE) 02/17/18 16:59 Urine Bilirubin NEGATIVE (NEGATIVE) 02/17/18 16:59 Urine Urobilinogen 0.2 E.U./dL (0.2 - 1.0) 02/17/18 16:59 Ur Leukocyte Esterase SMALL (NEGATIVE) H 02/17/18 16:59 Urine RBC 25-50 /hpf (0-5) H 02/17/18 16:59 Urine WBC 6-10 /hpf (0-5) 02/17/18 16:59 Ur Epithelial Cells MODERATE /lpf (FEW) 02/17/18 16:59 Urine Bacteria FEW /hpf (NONE SEEN) 02/17/18 16:59 Fluid Source PLEURAL 02/01/18 11:00 Fluid Color PALE YELLOW 02/01/18 11:00 Fluid Appearance HAZY 02/01/18 11:00 Fluid WBC 149 /cumm 02/01/18 11:00 Fluid RBC 185 /cumm 02/01/18 11:00 Fluid Neutrophils 2 % 02/01/18 11:00 Fluid Lymphocytes 50 % 02/01/18 11:00 Fluid Monocytes 48 % 02/01/18 11:00 Fluid Glucose 75.0 mg/dL 02/01/18 11:00 Fluid Total Protein 2.3 g/dL 02/01/18 11:00 Fluid Amylase 61 U/L 02/01/18 11:00 Random Vancomycin 22.5 ug/mL (5.0-40.0) 02/04/18 05:52 Coccidioides Ab Negative (Neg:<1:2) 02/19/18 05:27 TB (QFT) Gold In Tube Negative (Negative) 02/18/18 19:50 TB Test (QFT) Mitogen 7.52 IU/mL 02/18/18 19:50 TB Test (QFT) Antigen 0.06 IU/mL 02/18/18 19:50 TB Test Antigen - Nil 0.00 IU/mL 02/18/18 19:50 TB Test TB - Nil 0.06 IU/mL 02/18/18 19:50 TB Test (QFT) Interp 02/18/18 19:50 Blood Type O POSITIVE 02/20/18 07:00 Antibody Screen NEGATIVE 02/20/18 07:00 - Physical Exam Vitals and I&O: Vital Signs Temp 97.3 F 02/25/18 13:00 Pulse 74 02/25/18 13:00 Resp 20 02/25/18 13:00 BP 133/62 02/25/18 13:00 Pulse Ox 96 02/25/18 13:00 Intake & Output 02/24/18 02/25/18 02/25/18 18:59 06:59 18:59 Intake Total 400 1300 Output Total 1950 60 Balance -1550 1240 Weight (lbs) 71.469 kg 73.754 kg Intake: Intake, IV Amount 1000 Sodium Chloride 0.9% 1, 1000 000 ml @ 60 mls/hr IV . [id number] [facility] Rx#:[id number] Oral 400 300 Output: Chest Tube Drainage 50 60 Right Lower Anterior 50 60 Chest Urine 0 Hemodialysis 1900 Other: # Voids 1 # Bowel Movements 0 Weight Source Bedscale Bedscale Active Medications: Current Medications Acetaminophen (Tylenol) 650 mg PO Q6HR PRN PRN Reason: PAIN Stop: 03/30/18 23:07 Acetaminophen/Hydrocodone Bitart ([place] 5mg/325mg) 2 tab PO Q4H PRN PRN Reason: Pain (Moderate) Stop: 03/30/18 23:16 Last Admin: 02/18/18 22:42 Dose: 2 tab Al Hydrox/Mg Hydrox/Simethicone (Maalox) 30 ml PO Q4H PRN PRN Reason: Heartburn Stop: 04/17/18 22:02 Last Admin: 02/16/18 22:29 Dose: 30 ml Albuterol Sulfate (Albuterol 2.5mg/3ml Neb Ud) 2.5 mg HHN Q1H PRN PRN Reason: Respiratory Distress Stop: 03/31/18 07:59 Last Admin: 02/01/18 15:33 Dose: 2.5 mg Albuterol/Ipratropium (Duoneb Neb) 3 ml HHN Q4HRT [facility] Stop: 03/31/18 14:59 Last Admin: 02/25/18 11:34 Dose: Not Given Atorvastatin Calcium (Lipitor) 40 mg PO HS [facility] Stop: 03/31/18 20:59 Last Admin: 02/24/18 21:09 Dose: 40 mg Cinacalcet (Sensipar) 30 mg PO DAILY [facility] Stop: 03/31/18 08:59 Last Admin: 02/25/18 09:06 Dose: 30 mg Diclofenac Sodium (Voltaren) 50 mg PO BID [facility] Stop: 04/01/18 08:59 Last Admin: 02/25/18 09:07 Dose: 50 mg Docusate Sodium (Colace) 100 mg PO DAILY [facility] Stop: 03/31/18 08:59 Last Admin: 02/25/18 09:07 Dose: 100 mg Famotidine (Pepcid) 20 mg PO DAILY [facility] Stop: 04/18/18 08:59 Last Admin: 02/25/18 09:07 Dose: 20 mg Hydromorphone HCl (Dilaudid) 2 mg IVP Q4HR PRN PRN Reason: chest pain Stop: 04/21/18 13:55 Last Admin: 02/24/18 22:36 Dose: 2 mg Sodium Chloride (Nacl 0.9%) 1,000 mls @ 60 mls/hr IV .[id number] [facility] Stop: 02/26/18 19:47 Last Admin: 02/25/18 08:30 Dose: 60 mls/hr Cefepime HCl 1 gm/ Dextrose 50 mls @ 100 mls/hr IV Q24H [facility] Stop: 04/26/18 10:59 Last Admin: 02/25/18 10:54 Dose: 100 mls/hr Ipratropium [place] (Atrovent Neb 0.5mg/2.5ml) 0.5 mg HHN Q6HRT [facility] Stop: 03/31/18 12:59 Last Admin: 02/24/18 18:54 Dose: Not Given Lactobacillus Rhamnosus (Culturelle 15b) 1 each PO DAILY [facility] Stop: 04/15/18 08:59 Last Admin: 02/25/18 09:07 Dose: 1 each Megestrol Acetate (Megace) 400 mg PO DAILY [facility]; Protocol Stop: 03/31/18 08:59 Last Admin: 02/25/18 09:08 Dose: Not Given Midodrine (Proamatine) 10 mg PO TID [facility] Stop: 04/16/18 00:29 Last Admin: 02/25/18 09:08 Dose: Not Given Mirtazapine (Remeron) 30 mg PO [facility]; Protocol Stop: 04/26/18 20:59 Miscellaneous (Clinical Monitoring) 1 ea DAILY PRN PRN Reason: RENAL Stop: 04/08/18 08:30 Miscellaneous (Probiotic Screen) 1 ea PRN PRN PRN Reason: PROTOCOL Stop: 04/14/18 09:44 Sevelamer Carbonate (Renvela) 800 mg PO TID [facility] Stop: 03/30/18 23:14 Last Admin: 02/25/18 09:07 Dose: 800 mg Vitamin B Complex/Vit C/Folic Acid (Vitamin B Complex W/Vitamin C) 1 tab PO DAILY [facility] Stop: 03/31/18 08:59 Last Admin: 02/25/18 09:07 Dose: 1 tab General: Alert, Oriented x3, Cooperative, No acute distress HEENT: Atraumatic, PERRLA, EOMI, Mucous membr. moist/pink Neck: Supple, +2 carotid pulse wo bruit Cardiovascular: Regular rate, Normal S1, Normal S2 Lungs: Other (increased BS right lung field, (+) chest tube) Abdomen: Bowel sounds, Soft Extremities: no Edema Neurological: Sensation intact Skin: no Rash Psych/Mental Status: Mood NL - Procedures Procedures: Procedures Procedure Code Date DRAINAGE OF R PLEURAL CAV WITH DRAIN DEV, PERC APPROACH [id number] 01/29/18 DRAINAGE OF RIGHT LOWER LUNG LOBE, ENDO, DIAGN [id number] 01/29/18 Assessment/Plan - Problem List Patient Problems: All Active Problems RIGHT FACIAL SWELLING AND PAIN (Acute) - Assessment Assessment: ESRD on HD Right facial cellulitis Right lung opacification 2/2 effusion Cx UTI T2DM Anemia of CKD right PTX s/p chest tube S/P right lung surgery - Plan Plan: Lab - Result Diagrams 01/31/18 04:15 01/31/18 04:15 Current Medications Acetaminophen (Tylenol) 650 mg PO Q6HR PRN PRN Reason: PAIN Stop: 03/30/18 23:07 Acetaminophen/Hydrocodone Bitart ([place] 5mg/325mg) 2 tab PO Q4H PRN PRN Reason: Pain (Moderate) Stop: 03/30/18 23:16 Last Admin: 01/29/18 23:29 Dose: 2 tab Acetylcysteine (Mucomyst 20%) 2 ml HHN Q4HRT [facility] Stop: 03/31/18 14:59 Last Admin: 01/31/18 11:27 Dose: 2 ml Albuterol Sulfate (Albuterol 2.5mg/3ml Neb Ud) 2.5 mg HHN Q1H PRN PRN Reason: Respiratory Distress Stop: 03/31/18 07:59 Albuterol/Ipratropium (Duoneb Neb) 3 ml HHN Q4HRT [facility] Stop: 03/31/18 14:59 Last Admin: 01/31/18 11:27 Dose: 3 ml Atorvastatin Calcium (Lipitor) 40 mg PO HS [facility] Stop: 03/31/18 20:59 Last Admin: 01/30/18 21:19 Dose: 40 mg Cinacalcet (Sensipar) 30 mg PO DAILY [facility] Stop: 03/31/18 08:59 Last Admin: 01/31/18 08:28 Dose: Not Given Diclofenac Sodium (Voltaren) 50 mg PO BID [facility] Stop: 04/01/18 08:59 Last Admin: 01/31/18 08:25 Dose: 50 mg Docusate Sodium (Colace) 100 mg PO DAILY [facility] Stop: 03/31/18 08:59 Last Admin: 01/31/18 08:26 Dose: 100 mg Epoetin Vishal (Epogen) 10,000 units SUBQ MWF@1600 [facility] Stop: 04/01/18 15:59 Furosemide (Lasix) 40 mg PO DAILY [facility] Stop: 03/31/18 08:59 Last Admin: 01/31/18 08:26 Dose: 40 mg Heparin Sodium (Porcine) (Heparin) 5,000 units IVP ONCE@2100 [facility] Stop: 01/31/18 21:01 Last Admin: 01/30/18 21:18 Dose: 5,000 units Ceftriaxone Sodium 1 gm/ (Sodium Chloride) 50 mls @ 100 mls/hr IV Q24HR [facility] Stop: 03/31/18 18:59 Last Infusion: 01/30/18 21:50 Dose: Infused Ipratropium [place] (Atrovent Neb 0.5mg/2.5ml) 0.5 mg HHN Q6HRT [facility] Stop: 03/31/18 12:59 Last Admin: 01/31/18 00:57 Dose: Not Given Lactobacillus Rhamnosus (Culturelle 15b) 1 each PO DAILY [facility] Stop: 03/30/18 23:14 Last Admin: 01/31/18 08:27 Dose: 1 each Megestrol Acetate (Megace) 400 mg PO DAILY [facility] PRN Reason: Protocol Stop: 03/31/18 08:59 Last Admin: 01/31/18 09:31 Dose: Not Given Metoprolol Tartrate (Lopressor) 50 mg PO BID [facility] Stop: 03/30/18 23:14 Last Admin: 01/31/18 08:27 Dose: 50 mg Midodrine (Proamatine) 5 mg PO TID PRN PRN Reason: HYPOTENSION Stop: 03/30/18 23:07 Miscellaneous (Vancomycin Iv Per Pharmacy) 1 ea MC PRN [facility] Stop: 03/30/18 21:44 Morphine Sulfate (Morphine) 1 mg IVP Q4HR PRN PRN Reason: Pain (Severe) Stop: 03/30/18 23:17 Last Admin: 01/31/18 08:17 Dose: 1 mg Sevelamer Carbonate (Renvela) 800 mg PO TID [facility] Stop: 03/30/18 23:14 Last Admin: 01/31/18 08:28 Dose: 800 mg Vitamin B Complex/Vit C/Folic Acid (Vitamin B Complex W/Vitamin C) 1 tab PO DAILY [facility] Stop: 03/31/18 08:59 Last Admin: 01/31/18 08:28 Dose: Lab - Result Diagrams 02/25/18 04:35 02/25/18 04:35 0 continue Rocephin WBC up to 8.2 bronchoscopy: no endobronchial lesion CXR: persistent right effusion, PNA surgery revealed trapped lung CT drain 130ml overnite Nutritional Asmnt/Malnutr-PDOC - Dietary Evaluation Malnutrition Findings (Please click <Entered> for more info): Nutritional Asmnt/Malnutrition Start: 02/03/18 12: 10 Text: Status: Complete Freq: Protocol: Document 02/03/18 12:10 RICO (Rec: 02/03/18 12:31 [email or web address]- [email or web address]) Nutritional Asmnt/Malnutrition Patient General Information Nutritional Screening Moderate Risk Diagnosis Rt facuial cellulitis, rt pleural effusion Pertinent Medical Hx/Surgical Hx ESRD on dialysis x 7 years, COPD, hyperlipidemia, Type 2 diabetes Subjective Information Per H&P, patient was on peritoneal dialysis up to a few months ago when he was diagnosed with peritonitis ( now on HD TTS). Per nursing notes, pt refusing some medications. Diet education not appropriate at this time. Current Diet Order/ Nutrition Support 60 gm CCHO, 1200 ml fluid restriction Patient / S.O Not Indicated Pertinent Medications lipitor, Sensipar, colace, lasix, Epogen, Megacem abx, Renvela, Vitamin B complex with C Pertinent Labs ((02/02) Cr 4.5, Ca 8.5, albumin 24 Nutritional Hx/Data Height 1.68 m Height (Calculated Centimeters) 167.6 Current Weight (lbs) 79.379 kg Weight (Calculated Kilograms) 79.4 Weight (Calculated Grams) 33231.7 [place] Body Weight 142 % [place] Body Weight 123 Body Mass Index (BMI) 28.2 Recent Weight Change No Weight Status Overweight GI Symptoms GI Symptoms None Last BM 5/11 x 1 Difficult in: None Food Allergies No Cultural/Ethnic/Orthodox Belief none indicated Usual diet at home unknown Skin Integrity/Comment: Ba 15, cellulitis facial Current %PO Good (75-100%) Estimated Nutritional Goals BEE in Kcals: Adj wt of IBW Calories/Kcals/Kg 27-32 kcal/kg using 68.2 kg Adj wt Kcals Calculated 4225-4001 kcal/day Protein: Adj wt of IBW Protein g/k.2-1.5 gm/kg (HD) Protein Calculated 80-100 gm/day Fluid: ml Per MD due to HD Nutritional Problem 1. Problem Problem Increased nutrient needs related to Etiology impaired skin integrity/ dialysis aeb Signs/Symptoms: Facial cellulitis and on HD Intervention/Recommendation Comments Consider modifying diet to 2gm sodium. Glucose/HG1AC low, no need for Diabetic restriction . Continue to monitor K and Phosphorus levels and need for Renal diet (not needed at this time.) Consider Prosource with meals for added protein due to cellulitis and HD. Expected Outcomes/Goals Expected Outcomes/Goals oral intake to meet >75% of nutrient needs, nutritino related labs normalize, weight stable.
--- NOTE | 2018-02-25 18:58 | Infectious Disease Prog Note ---
Infectious Disease Subjective - Review of Systems Service Date: 02/25/18 Subjective: Patient is in ICU. No fever. Infectious Disease Objective - Results Result Diagrams: 02/26/18 04:30 02/26/18 04:30 Recent Labs: Laboratory Last Values WBC 8.2 Th/cmm (4.8-10.8) 02/25/18 04:35 RBC 3.06 Mil/cmm (3.80-5.80) L 02/25/18 04:35 Hgb 9.1 gm/dL (12-16) L 02/25/18 04:35 Hct 27.6 % (41.0-60) L 02/25/18 04:35 MCV 90.4 fl (80-99) 02/25/18 04:35 MCH 29.7 pg (27.0-31.0) 02/25/18 04:35 MCHC Differential 32.9 pg (28.0-36.0) 02/25/18 04:35 RDW 15.1 % (11.5-20.0) 02/25/18 04:35 Plt Count 258 Th/cmm (150-400) 02/25/18 04:35 MPV 6.2 fl 02/25/18 04:35 Neutrophils % 55.2 % (40.0-80.0) 02/25/18 04:35 Lymphocytes % 23.3 % (20.0-50.0) 02/25/18 04:35 Monocytes % 10.9 % (2.0-10.0) H 02/25/18 04:35 Eosinophils % 9.6 % (0.0-5.0) H 02/25/18 04:35 Basophils % 1.0 % (0.0-2.0) 02/25/18 04:35 ESR 87 mm/hr (0-20) H 01/31/18 04:15 PT 10.2 SECONDS (9.5-11.5) 02/20/18 09:40 INR 0.98 (0.5-1.4) 02/20/18 09:40 PTT (Actin FS) 30.6 SECONDS (26.0-38.0) 02/20/18 09:40 Sodium 136 mEq/L (136-145) 02/25/18 04:35 Potassium 3.7 mEq/L (3.5-5.1) 02/25/18 04:35 Chloride 107 mEq/L (98-107) 02/25/18 04:35 Carbon Dioxide 23.5 mEq/L (21.0-31.0) 02/25/18 04:35 Anion Gap 9.2 (7.0-16.0) 02/25/18 04:35 BUN 11 mg/dL (7-25) 02/25/18 04:35 Creatinine 3.2 mg/dL (0.7-1.3) H 02/25/18 04:35 Est GFR ( Amer) 25.2 ml/min (>90) 02/25/18 04:35 Est GFR (Non-Af Amer) 20.8 ml/min 02/25/18 04:35 BUN/Creatinine Ratio 3.4 02/25/18 04:35 Glucose 61 mg/dL (70-105) L 02/25/18 04:35 POC Glucose 106 MG/DL (70 - 105) H 02/08/18 12:11 Hemoglobin A1c % 3.5 % (4.0-6.0) L 01/31/18 04:15 Whole Bld Lactic Acid 0.55 mmol/L (0.60-1.99) L 01/29/18 16:42 Calcium 8.0 mg/dL (8.6-10.3) L 02/25/18 04:35 Phosphorus 4.1 mg/dL (2.5-5.0) 01/31/18 04:15 Magnesium 2.1 mg/dL (1.9-2.7) 02/24/18 05:20 Total Bilirubin 0.4 mg/dL (0.3-1.0) 02/23/18 04:45 AST 13 U/L (13-39) 02/23/18 04:45 ALT 6 U/L (7-52) L 02/23/18 04:45 Alkaline Phosphatase 59 U/L (34-104) 02/23/18 04:45 Creatine Kinase 12 U/L (30-223) L 01/29/18 16:42 Troponin I 0.02 ng/mL (0.01-0.05) 01/29/18 16:42 C-Reactive Protein 11.4 mg/dL (0.0-0.9) H 01/31/18 04:15 Total Protein 5.1 gm/dL (6.0-8.3) L 02/23/18 04:45 Albumin 2.1 gm/dL (4.2-5.5) L 02/23/18 04:45 Globulin 3.0 gm/dL 02/23/18 04:45 Albumin/Globulin Ratio 0.7 (1.0-1.8) L 02/23/18 04:45 Triglycerides 72 mg/dL (<150) 01/31/18 04:15 Cholesterol 97 mg/dL (<200) 01/31/18 04:15 LDL Cholesterol Direct 45 mg/dL (75-193) L 01/31/18 04:15 HDL Cholesterol 36 mg/dL (23-92) 01/31/18 04:15 TSH 2.15 uIU/ml (0.34-5.60) 01/31/18 04:15 PTH Intact 36 pg/mL (15-65) 02/01/18 05:22 Urine Source CLEAN C 02/17/18 16:59 Urine Color YELLOW 02/17/18 16:59 Urine Clarity HAZY (CLEAR) 02/17/18 16:59 Urine pH 8.5 (4.6 - 8.0) 02/17/18 16:59 Ur Specific [place] 1.020 (1.005-1.030) 02/17/18 16:59 Urine Protein >=300 mg/dL (NEGATIVE) 02/17/18 16:59 Urine Glucose (UA) 100 mg/dL (NEGATIVE) H 02/17/18 16:59 Urine Ketones NEGATIVE mg/dL (NEGATIVE) 02/17/18 16:59 Urine Blood LARGE (NEGATIVE) H 02/17/18 16:59 Urine Nitrate NEGATIVE (NEGATIVE) 02/17/18 16:59 Urine Bilirubin NEGATIVE (NEGATIVE) 02/17/18 16:59 Urine Urobilinogen 0.2 E.U./dL (0.2 - 1.0) 02/17/18 16:59 Ur Leukocyte Esterase SMALL (NEGATIVE) H 02/17/18 16:59 Urine RBC 25-50 /hpf (0-5) H 02/17/18 16:59 Urine WBC 6-10 /hpf (0-5) 02/17/18 16:59 Ur Epithelial Cells MODERATE /lpf (FEW) 02/17/18 16:59 Urine Bacteria FEW /hpf (NONE SEEN) 02/17/18 16:59 Fluid Source PLEURAL 02/01/18 11:00 Fluid Color PALE YELLOW 02/01/18 11:00 Fluid Appearance HAZY 02/01/18 11:00 Fluid WBC 149 /cumm 02/01/18 11:00 Fluid RBC 185 /cumm 02/01/18 11:00 Fluid Neutrophils 2 % 02/01/18 11:00 Fluid Lymphocytes 50 % 02/01/18 11:00 Fluid Monocytes 48 % 02/01/18 11:00 Fluid Glucose 75.0 mg/dL 02/01/18 11:00 Fluid Total Protein 2.3 g/dL 02/01/18 11:00 Fluid Amylase 61 U/L 02/01/18 11:00 Random Vancomycin 22.5 ug/mL (5.0-40.0) 02/04/18 05:52 Coccidioides Ab Negative (Neg:<1:2) 02/19/18 05:27 TB (QFT) Gold In Tube Negative (Negative) 02/18/18 19:50 TB Test (QFT) Mitogen 7.52 IU/mL 02/18/18 19:50 TB Test (QFT) Antigen 0.06 IU/mL 02/18/18 19:50 TB Test Antigen - Nil 0.00 IU/mL 02/18/18 19:50 TB Test TB - Nil 0.06 IU/mL 02/18/18 19:50 TB Test (QFT) Interp 02/18/18 19:50 Blood Type O POSITIVE 02/20/18 07:00 Antibody Screen NEGATIVE 02/20/18 07:00 - Physical Exam Vitals and I&O: Vital Signs Temp 98 F 02/25/18 17:00 Pulse 84 02/25/18 18:00 Resp 21 02/25/18 18:00 BP 154/73 02/25/18 18:00 Pulse Ox 96 02/25/18 18:00 Intake & Output 02/24/18 02/25/18 02/25/18 18:59 06:59 18:59 Intake Total 400 1300 650 Output Total 1950 60 30 Balance -1550 1240 620 Weight (lbs) 71.469 kg 73.754 kg 73.794 kg Intake: Intake, IV Amount 1000 50 Cefepime 1 gm In Dextrose 50 5% 50 ml @ 100 mls/hr IV Q24H [facility] Rx#:[id number] Sodium Chloride 0.9% 1, 1000 000 ml @ 60 mls/hr IV . [id number] [facility] Rx#:[id number] Oral 400 300 600 Output: Chest Tube Drainage 50 60 30 Right Lower Anterior 50 60 30 Chest Urine 0 Hemodialysis 1900 Other: # Voids 1 # Bowel Movements 0 Weight Source Bedscale Bedscale Bedscale Active Medications: Current Medications Acetaminophen (Tylenol) 650 mg PO Q6HR PRN PRN Reason: PAIN Stop: 03/30/18 23:07 Acetaminophen/Hydrocodone Bitart ([place] 5mg/325mg) 2 tab PO Q4H PRN PRN Reason: Pain (Moderate) Stop: 03/30/18 23:16 Last Admin: 02/18/18 22:42 Dose: 2 tab Al Hydrox/Mg Hydrox/Simethicone (Maalox) 30 ml PO Q4H PRN PRN Reason: Heartburn Stop: 04/17/18 22:02 Last Admin: 02/16/18 22:29 Dose: 30 ml Albuterol Sulfate (Albuterol 2.5mg/3ml Neb Ud) 2.5 mg HHN Q1H PRN PRN Reason: Respiratory Distress Stop: 03/31/18 07:59 Last Admin: 02/01/18 15:33 Dose: 2.5 mg Albuterol/Ipratropium (Duoneb Neb) 3 ml HHN Q4HRT [facility] Stop: 03/31/18 14:59 Last Admin: 02/25/18 18:26 Dose: 3 ml Atorvastatin Calcium (Lipitor) 40 mg PO HS [facility] Stop: 03/31/18 20:59 Last Admin: 02/24/18 21:09 Dose: 40 mg Cinacalcet (Sensipar) 30 mg PO DAILY [facility] Stop: 03/31/18 08:59 Last Admin: 02/25/18 09:06 Dose: 30 mg Diclofenac Sodium (Voltaren) 50 mg PO BID [facility] Stop: 04/01/18 08:59 Last Admin: 02/25/18 17:04 Dose: 50 mg Docusate Sodium (Colace) 100 mg PO DAILY [facility] Stop: 03/31/18 08:59 Last Admin: 02/25/18 09:07 Dose: 100 mg Famotidine (Pepcid) 20 mg PO DAILY [facility] Stop: 04/18/18 08:59 Last Admin: 02/25/18 09:07 Dose: 20 mg Hydromorphone HCl (Dilaudid) 2 mg IVP Q4HR PRN PRN Reason: chest pain Stop: 04/21/18 13:55 Last Admin: 02/24/18 22:36 Dose: 2 mg Cefepime HCl 1 gm/ Dextrose 50 mls @ 100 mls/hr IV Q24H [facility] Stop: 04/26/18 10:59 Last Infusion: 02/25/18 11:25 Dose: Infused Ipratropium [place] (Atrovent Neb 0.5mg/2.5ml) 0.5 mg HHN Q6HRT [facility] Stop: 03/31/18 12:59 Last Admin: 02/24/18 18:54 Dose: Not Given Lactobacillus Rhamnosus (Culturelle 15b) 1 each PO DAILY [facility] Stop: 04/15/18 08:59 Last Admin: 02/25/18 09:07 Dose: 1 each Megestrol Acetate (Megace) 400 mg PO DAILY [facility]; Protocol Stop: 03/31/18 08:59 Last Admin: 02/25/18 09:08 Dose: Not Given Midodrine (Proamatine) 10 mg PO TID [facility] Stop: 04/16/18 00:29 Last Admin: 02/25/18 13:52 Dose: 10 mg Mirtazapine (Remeron) 30 mg PO HS [facility]; Protocol Stop: 04/26/18 20:59 Miscellaneous (Clinical Monitoring) 1 ea DAILY PRN PRN Reason: RENAL Stop: 04/08/18 08:30 Miscellaneous (Probiotic Screen) 1 ea PRN PRN PRN Reason: PROTOCOL Stop: 04/14/18 09:44 Sevelamer Carbonate (Renvela) 800 mg PO TID [facility] Stop: 03/30/18 23:14 Last Admin: 02/25/18 13:52 Dose: 800 mg Vitamin B Complex/Vit C/Folic Acid (Vitamin B Complex W/Vitamin C) 1 tab PO DAILY [facility] Stop: 03/31/18 08:59 Last Admin: 02/25/18 09:07 Dose: 1 tab General: no acute distress, cachectic HEENT: atraumatic, normocephalic, PERRLA Neck: supple, no thyromegaly Cardiovascular: S1S2, regular Lungs: clear to percussion, other (chest tube in the right.) Abdomen: soft, no tender, no distended Extremities: no cyanosis, no clubbing, no edema Neurological: awake, alert, oriented - Procedures Procedures: Procedures Procedure Code Date DRAINAGE OF R PLEURAL CAV WITH DRAIN DEV, PERC APPROACH [id number] 01/29/18 DRAINAGE OF RIGHT LOWER LUNG LOBE, ENDO, DIAGN [id number] 01/29/18 Infectious Disease Assmt/Plan - Problem List Patient Problems: All Active Problems RIGHT FACIAL SWELLING AND PAIN (Acute) - Assessment Assessment: 1. Pleural effusion with lymphocyte predominance. Empyema culture growing Pseudomonas. It is not clear whether it is from the bronchoalveolar lavage are from the pleural fluid. The differential includes malignant pleural effusion, versus tuberculous empyema. 2. Pseudomonas pneumonia. 3. Chronic kidney disease stage 5, on hemodialysis. 4. Diabetes mellitus type 2. 5. Chronic obstructive pulmonary disease. 6. Hyperlipidemia. 7. Urinary tract infection, treated. 8. Hyperlipidemia. - Plan Plan: Continue the same treatment. Check pleural fluid for AFB and cytology. Pleural fluid adenosine deaminase. Nutritional Asmnt/Malnutr-PDOC - Dietary Evaluation Malnutrition Findings (Please click <Entered> for more info): Nutritional Asmnt/Malnutrition Start: 02/03/18 12: 10 Text: Status: Complete Freq: Protocol: Document 02/03/18 12:10 MMULHERN (Rec: 02/03/18 12:31 [email or web address] VALERIO- [email or web address]) Nutritional Asmnt/Malnutrition Patient General Information Nutritional Screening Moderate Risk Diagnosis Rt facuial cellulitis, rt pleural effusion Pertinent Medical Hx/Surgical Hx ESRD on dialysis x 7 years, COPD, hyperlipidemia, Type 2 diabetes Subjective Information Per H&P, patient was on peritoneal dialysis up to a few months ago when he was diagnosed with peritonitis ( now on HD TTS). Per nursing notes, pt refusing some medications. Diet education not appropriate at this time. Current Diet Order/ Nutrition Support 60 gm CCHO, 1200 ml fluid restriction Patient / S.O Not Indicated Pertinent Medications lipitor, Sensipar, colace, lasix, Epogen, Megacem abx, Renvela, Vitamin B complex with C Pertinent Labs ((02/02) Cr 4.5, Ca 8.5, albumin 24 Nutritional Hx/Data Height 1.68 m Height (Calculated Centimeters) 167.6 Current Weight (lbs) 79.379 kg Weight (Calculated Kilograms) 79.4 Weight (Calculated Grams) 17406.7 [place] Body Weight 142 % [place] Body Weight 123 Body Mass Index (BMI) 28.2 Recent Weight Change No Weight Status Overweight GI Symptoms GI Symptoms None Last BM 02/02 x 1 Difficult in: None Food Allergies No Cultural/Ethnic/Sabianist Belief none indicated Usual diet at home unknown Skin Integrity/Comment: Ba 15, cellulitis facial Current %PO Good (75-100%) Estimated Nutritional Goals BEE in Kcals: Adj wt of IBW Calories/Kcals/Kg 27-32 kcal/kg using 68.2 kg Adj wt Kcals Calculated 9325-8861 kcal/day Protein: Adj wt of IBW Protein g/k.2-1.5 gm/kg (HD) Protein Calculated 80-100 gm/day Fluid: ml Per MD due to HD Nutritional Problem 1. Problem Problem Increased nutrient needs related to Etiology impaired skin integrity/ dialysis aeb Signs/Symptoms: Facial cellulitis and on HD Intervention/Recommendation Comments Consider modifying diet to 2gm sodium. Glucose/HG1AC low, no need for Diabetic restriction . Continue to monitor K and Phosphorus levels and need for Renal diet (not needed at this time.) Consider Prosource with meals for added protein due to cellulitis and HD. Expected Outcomes/Goals Expected Outcomes/Goals oral intake to meet >75% of nutrient needs, nutritino related labs normalize, weight stable.
[2018-02-25] MEDS: HYDROmorphone 2 mg/mL 1mL Vial IVP PRN (19:34)
[2018-02-26] MEDS: Albuterol/Ipratropium Neb 3 ML AERS HHN SCH ×6 (02:45→23:00)
[2018-02-26 05:07] LABS: % BASOPHILS 0.9 % (0.0-2.0); % EOSINOPHILS 7.3 % (0.0-5.0); % LYMPHOCYTES 19.3 % (20.0-50.0); % MONOCYTES 11.3 % (2.0-10.0); % NEUTROPHILS 61.2 % (40.0-80.0); BASOPHILE ABSOLUTE 0.1 Th/cumm (0-0.2); EOSINOPHILE ABSOLUTE 0.7 Th/cmm (0.1-0.4); HEMATOCRIT 27.3 % (41.0-60); HEMOGLOBIN 8.9 gm/dL (12-16); LYMPHOCYTE ABSOLUTE 1.8 Th/cmm (1.5-3.0); MEAN CELL VOLUME 90.5 fl (80-99); MEAN CORPUSCULAR HEMOGLOBIN 29.5 pg (27.0-31.0); MEAN CORPUSCULAR HGB CONC 32.6 pg (28.0-36.0); MEAN PLATELET VOLUME 6.6 fl; NEUTROPHILE ABSOLUTE 5.6 Th/cmm (1.8-8.0); PLATELET COUNT 284 Th/cmm (150-400); RED BLOOD COUNT 3.01 Mil/cmm (3.80-5.80); RED CELL DISTRIBUTION WIDTH 15.3 % (11.5-20.0); WHITE BLOOD COUNT 9.2 Th/cmm (4.8-10.8)
[2018-02-26 05:15] LABS: ANION GAP 9.2 (7.0-16.0); CALCIUM SERUM 8.7 mg/dL (8.6-10.3); CARBON DIOXIDE 25.4 mEq/L (21.0-31.0); GFR AFRICAN-AMERICAN 17.9 ml/min (>90); GFR NON AFRICAN-AMERICAN 14.8 ml/min; POTASSIUM SERUM 3.6 mEq/L (3.5-5.1)
[2018-02-26 05:40] LABS: CREATININE - SERUM 4.3 mg/dL (0.7-1.3)
--- NOTE | 2018-02-26 07:49 | General Progress Note ---
Subjective - Review of Systems Service Date: 02/26/18 Events since last encounter: further clearing of right chest on xray Objective - Results Result Diagrams: 02/26/18 04:30 02/26/18 04:30 Recent Labs: Laboratory Last Values WBC 9.2 Th/cmm (4.8-10.8) 02/26/18 04:30 RBC 3.01 Mil/cmm (3.80-5.80) L 02/26/18 04:30 Hgb 8.9 gm/dL (12-16) L 02/26/18 04:30 Hct 27.3 % (41.0-60) L 02/26/18 04:30 MCV 90.5 fl (80-99) 02/26/18 04:30 MCH 29.5 pg (27.0-31.0) 02/26/18 04:30 MCHC Differential 32.6 pg (28.0-36.0) 02/26/18 04:30 RDW 15.3 % (11.5-20.0) 02/26/18 04:30 Plt Count 284 Th/cmm (150-400) 02/26/18 04:30 MPV 6.6 fl 02/26/18 04:30 Neutrophils % 61.2 % (40.0-80.0) 02/26/18 04:30 Lymphocytes % 19.3 % (20.0-50.0) L 02/26/18 04:30 Monocytes % 11.3 % (2.0-10.0) H 02/26/18 04:30 Eosinophils % 7.3 % (0.0-5.0) H 02/26/18 04:30 Basophils % 0.9 % (0.0-2.0) 02/26/18 04:30 ESR 87 mm/hr (0-20) H 01/31/18 04:15 PT 10.2 SECONDS (9.5-11.5) 02/20/18 09:40 INR 0.98 (0.5-1.4) 02/20/18 09:40 PTT (Actin FS) 30.6 SECONDS (26.0-38.0) 02/20/18 09:40 Sodium 136 mEq/L (136-145) 02/26/18 04:30 Potassium 3.6 mEq/L (3.5-5.1) 02/26/18 04:30 Chloride 105 mEq/L (98-107) 02/26/18 04:30 Carbon Dioxide 25.4 mEq/L (21.0-31.0) 02/26/18 04:30 Anion Gap 9.2 (7.0-16.0) 02/26/18 04:30 BUN 20 mg/dL (7-25) 02/26/18 04:30 Creatinine 4.3 mg/dL (0.7-1.3) H* 02/26/18 04:30 Est GFR ( Amer) 17.9 ml/min (>90) 02/26/18 04:30 Est GFR (Non-Af Amer) 14.8 ml/min 02/26/18 04:30 BUN/Creatinine Ratio 4.7 02/26/18 04:30 Glucose 88 mg/dL (70-105) 02/26/18 04:30 POC Glucose 106 MG/DL (70 - 105) H 02/08/18 12:11 Hemoglobin A1c % 3.5 % (4.0-6.0) L 01/31/18 04:15 Whole Bld Lactic Acid 0.55 mmol/L (0.60-1.99) L 01/29/18 16:42 Calcium 8.7 mg/dL (8.6-10.3) 02/26/18 04:30 Phosphorus 4.1 mg/dL (2.5-5.0) 01/31/18 04:15 Magnesium 2.0 mg/dL (1.9-2.7) 02/26/18 04:30 Total Bilirubin 0.4 mg/dL (0.3-1.0) 02/23/18 04:45 AST 13 U/L (13-39) 02/23/18 04:45 ALT 6 U/L (7-52) L 02/23/18 04:45 Alkaline Phosphatase 59 U/L (34-104) 02/23/18 04:45 Creatine Kinase 12 U/L (30-223) L 01/29/18 16:42 Troponin I 0.02 ng/mL (0.01-0.05) 01/29/18 16:42 C-Reactive Protein 11.4 mg/dL (0.0-0.9) H 01/31/18 04:15 Total Protein 5.1 gm/dL (6.0-8.3) L 02/23/18 04:45 Albumin 2.1 gm/dL (4.2-5.5) L 02/23/18 04:45 Globulin 3.0 gm/dL 02/23/18 04:45 Albumin/Globulin Ratio 0.7 (1.0-1.8) L 02/23/18 04:45 Triglycerides 72 mg/dL (<150) 01/31/18 04:15 Cholesterol 97 mg/dL (<200) 01/31/18 04:15 LDL Cholesterol Direct 45 mg/dL (75-193) L 01/31/18 04:15 HDL Cholesterol 36 mg/dL (23-92) 01/31/18 04:15 TSH 2.15 uIU/ml (0.34-5.60) 01/31/18 04:15 PTH Intact 36 pg/mL (15-65) 02/01/18 05:22 Urine Source CLEAN C 02/17/18 16:59 Urine Color YELLOW 02/17/18 16:59 Urine Clarity HAZY (CLEAR) 02/17/18 16:59 Urine pH 8.5 (4.6 - 8.0) 02/17/18 16:59 Ur Specific [place] 1.020 (1.005-1.030) 02/17/18 16:59 Urine Protein >=300 mg/dL (NEGATIVE) 02/17/18 16:59 Urine Glucose (UA) 100 mg/dL (NEGATIVE) H 02/17/18 16:59 Urine Ketones NEGATIVE mg/dL (NEGATIVE) 02/17/18 16:59 Urine Blood LARGE (NEGATIVE) H 02/17/18 16:59 Urine Nitrate NEGATIVE (NEGATIVE) 02/17/18 16:59 Urine Bilirubin NEGATIVE (NEGATIVE) 02/17/18 16:59 Urine Urobilinogen 0.2 E.U./dL (0.2 - 1.0) 02/17/18 16:59 Ur Leukocyte Esterase SMALL (NEGATIVE) H 02/17/18 16:59 Urine RBC 25-50 /hpf (0-5) H 02/17/18 16:59 Urine WBC 6-10 /hpf (0-5) 02/17/18 16:59 Ur Epithelial Cells MODERATE /lpf (FEW) 02/17/18 16:59 Urine Bacteria FEW /hpf (NONE SEEN) 02/17/18 16:59 Fluid Source PLEURAL 02/01/18 11:00 Fluid Color PALE YELLOW 02/01/18 11:00 Fluid Appearance HAZY 02/01/18 11:00 Fluid WBC 149 /cumm 02/01/18 11:00 Fluid RBC 185 /cumm 02/01/18 11:00 Fluid Neutrophils 2 % 02/01/18 11:00 Fluid Lymphocytes 50 % 02/01/18 11:00 Fluid Monocytes 48 % 02/01/18 11:00 Fluid Glucose 75.0 mg/dL 02/01/18 11:00 Fluid Total Protein 2.3 g/dL 02/01/18 11:00 Fluid Amylase 61 U/L 02/01/18 11:00 Random Vancomycin 22.5 ug/mL (5.0-40.0) 02/04/18 05:52 Coccidioides Ab Negative (Neg:<1:2) 02/19/18 05:27 TB (QFT) Gold In Tube Negative (Negative) 02/18/18 19:50 TB Test (QFT) Mitogen 7.52 IU/mL 02/18/18 19:50 TB Test (QFT) Antigen 0.06 IU/mL 02/18/18 19:50 TB Test Antigen - Nil 0.00 IU/mL 02/18/18 19:50 TB Test TB - Nil 0.06 IU/mL 02/18/18 19:50 TB Test (QFT) Interp 02/18/18 19:50 Blood Type O POSITIVE 02/20/18 07:00 Antibody Screen NEGATIVE 02/20/18 07:00 - Physical Exam Vitals and I&O: Vital Signs Temp 98.6 F 02/25/18 20:00 Pulse 69 02/26/18 07:16 Resp 12 02/26/18 07:16 BP 144/70 02/26/18 06:00 Pulse Ox 100 02/26/18 07:16 Intake & Output 02/25/18 02/26/18 02/26/18 18:59 06:59 18:59 Intake Total 650 200 Output Total 30 60 Balance 620 140 Weight (lbs) 73.794 kg 74.072 kg Intake: Intake, IV Amount 50 Cefepime 1 gm In Dextrose 50 5% 50 ml @ 100 mls/hr IV Q24H [facility] Rx#:[id number] Oral 600 200 Output: Chest Tube Drainage 30 60 Right Lower Anterior 30 60 Chest Other: Weight Source Bedscale Bedscale Active Medications: Current Medications Acetaminophen (Tylenol) 650 mg PO Q6HR PRN PRN Reason: PAIN Stop: 03/30/18 23:07 Acetaminophen/Hydrocodone Bitart ([place] 5mg/325mg) 2 tab PO Q4H PRN PRN Reason: Pain (Moderate) Stop: 03/30/18 23:16 Last Admin: 02/18/18 22:42 Dose: 2 tab Al Hydrox/Mg Hydrox/Simethicone (Maalox) 30 ml PO Q4H PRN PRN Reason: Heartburn Stop: 04/17/18 22:02 Last Admin: 02/16/18 22:29 Dose: 30 ml Albuterol Sulfate (Albuterol 2.5mg/3ml Neb Ud) 2.5 mg HHN Q1H PRN PRN Reason: Respiratory Distress Stop: 03/31/18 07:59 Last Admin: 02/01/18 15:33 Dose: 2.5 mg Albuterol/Ipratropium (Duoneb Neb) 3 ml HHN Q4HRT [facility] Stop: 03/31/18 14:59 Last Admin: 02/26/18 07:16 Dose: Not Given Atorvastatin Calcium (Lipitor) 40 mg PO HS [facility] Stop: 03/31/18 20:59 Last Admin: 02/25/18 20:58 Dose: 40 mg Cinacalcet (Sensipar) 30 mg PO DAILY [facility] Stop: 03/31/18 08:59 Last Admin: 02/25/18 09:06 Dose: 30 mg Diclofenac Sodium (Voltaren) 50 mg PO BID [facility] Stop: 04/01/18 08:59 Last Admin: 02/25/18 17:04 Dose: 50 mg Docusate Sodium (Colace) 100 mg PO DAILY [facility] Stop: 03/31/18 08:59 Last Admin: 02/25/18 09:07 Dose: 100 mg Famotidine (Pepcid) 20 mg PO DAILY [facility] Stop: 04/18/18 08:59 Last Admin: 02/25/18 09:07 Dose: 20 mg Hydromorphone HCl (Dilaudid) 2 mg IVP Q4HR PRN PRN Reason: chest pain Stop: 04/21/18 13:55 Last Admin: 02/25/18 19:34 Dose: 2 mg Cefepime HCl 1 gm/ Dextrose 50 mls @ 100 mls/hr IV Q24H [facility] Stop: 04/26/18 10:59 Last Infusion: 02/25/18 11:25 Dose: Infused Ipratropium [place] (Atrovent Neb 0.5mg/2.5ml) 0.5 mg HHN Q6HRT [facility] Stop: 03/31/18 12:59 Last Admin: 02/24/18 18:54 Dose: Not Given Lactobacillus Rhamnosus (Culturelle 15b) 1 each PO DAILY [facility] Stop: 04/15/18 08:59 Last Admin: 02/25/18 09:07 Dose: 1 each Megestrol Acetate (Megace) 400 mg PO DAILY [facility]; Protocol Stop: 03/31/18 08:59 Last Admin: 02/25/18 09:08 Dose: Not Given Midodrine (Proamatine) 10 mg PO TID [facility] Stop: 04/16/18 00:29 Last Admin: 02/25/18 20:57 Dose: 10 mg Mirtazapine (Remeron) 30 mg PO HS [facility]; Protocol Stop: 04/26/18 20:59 Last Admin: 02/25/18 20:57 Dose: 30 mg Miscellaneous (Clinical Monitoring) 1 ea [facility] DAILY PRN PRN Reason: RENAL Stop: 04/08/18 08:30 Miscellaneous (Probiotic Screen) 1 [facility] PRN PRN PRN Reason: PROTOCOL Stop: 04/14/18 09:44 Sevelamer Carbonate (Renvela) 800 mg PO TID [facility] Stop: 03/30/18 23:14 Last Admin: 02/25/18 20:57 Dose: 800 mg Vitamin B Complex/Vit C/Folic Acid (Vitamin B Complex W/Vitamin C) 1 tab PO DAILY [facility] Stop: 03/31/18 08:59 Last Admin: 02/25/18 09:07 Dose: 1 tab General: Alert, Oriented x3, Cooperative, No acute distress HEENT: Atraumatic, PERRLA, EOMI, Mucous membr. moist/pink Neck: Supple, +2 carotid pulse wo bruit Cardiovascular: Regular rate, Normal S1, Normal S2 Lungs: Other (increased BS right lung field, (+) chest tube) Abdomen: Bowel sounds, Soft Extremities: no Edema Neurological: Sensation intact Skin: no Rash Psych/Mental Status: Mood NL - Procedures Procedures: Procedures Procedure Code Date DRAINAGE OF R PLEURAL CAV WITH DRAIN DEV, PERC APPROACH [id number] 01/29/18 DRAINAGE OF RIGHT LOWER LUNG LOBE, ENDO, DIAGN [id number] 01/29/18 Assessment/Plan - Problem List Patient Problems: All Active Problems RIGHT FACIAL SWELLING AND PAIN (Acute) Nutritional Asmnt/Malnutr-PDOC - Dietary Evaluation Malnutrition Findings (Please click <Entered> for more info): Nutritional Asmnt/Malnutrition Start: 02/03/18 12: 10 Text: Status: Complete Freq: Protocol: Document 02/03/18 12:10 MMULRAUL (Rec: 02/03/18 12:31 [email or web address] VALERIO- [email or web address]) Nutritional Asmnt/Malnutrition Patient General Information Nutritional Screening Moderate Risk Diagnosis Rt facuial cellulitis, rt pleural effusion Pertinent Medical Hx/Surgical Hx ESRD on dialysis x 7 years, COPD, hyperlipidemia, Type 2 diabetes Subjective Information Per H&P, patient was on peritoneal dialysis up to a few months ago when he was diagnosed with peritonitis ( now on HD TTS). Per nursing notes, pt refusing some medications. Diet education not appropriate at this time. Current Diet Order/ Nutrition Support 60 gm CCHO, 1200 ml fluid restriction Patient / S.O Not Indicated Pertinent Medications lipitor, Sensipar, colace, lasix, Epogen, Megacem abx, Renvela, Vitamin B complex with C Pertinent Labs ((02/02) Cr 4.5, Ca 8.5, albumin 24 Nutritional Hx/Data Height 1.68 m Height (Calculated Centimeters) 167.6 Current Weight (lbs) 79.379 kg Weight (Calculated Kilograms) 79.4 Weight (Calculated Grams) 17711.7 [place] Body Weight 142 % [place] Body Weight 123 Body Mass Index (BMI) 28.2 Recent Weight Change No Weight Status Overweight GI Symptoms GI Symptoms None Last BM 02/02 x 1 Difficult in: None Food Allergies No Cultural/Ethnic/Muslim Belief none indicated Usual diet at home unknown Skin Integrity/Comment: Ba 15, cellulitis facial Current %PO Good (75-100%) Estimated Nutritional Goals BEE in Kcals: Adj wt of IBW Calories/Kcals/Kg 27-32 kcal/kg using 68.2 kg Adj wt Kcals Calculated 5800-3420 kcal/day Protein: Adj wt of IBW Protein g/k.2-1.5 gm/kg (HD) Protein Calculated 80-100 gm/day Fluid: ml Per MD due to HD Nutritional Problem 1. Problem Problem Increased nutrient needs related to Etiology impaired skin integrity/ dialysis aeb Signs/Symptoms: Facial cellulitis and on HD Intervention/Recommendation Comments Consider modifying diet to 2gm sodium. Glucose/HG1AC low, no need for Diabetic restriction . Continue to monitor K and Phosphorus levels and need for Renal diet (not needed at this time.) Consider Prosource with meals for added protein due to cellulitis and HD. Expected Outcomes/Goals Expected Outcomes/Goals oral intake to meet >75% of nutrient needs, nutritino related labs normalize, weight stable.
--- NOTE | 2018-02-26 08:48 | Diagnostic Imaging Report ---
Portable chest x-ray HISTORY: Pain, prior surgery Compared to prior exam of February 25, 2018, no change in pleural reaction about the right hemithorax. No change in right chest tube position. The heart remains enlarged. IMPRESSION: 1. No change in the pulmonary status.
[2018-02-26] MEDS: Vitamin B Complex w/Vitamin C Tab PO SCH (09:13)
[2018-02-26] MEDS: Lactobacillus Rhamnosus GG 15 Billion CFU CAP.SPRINK PO SCH (09:13)
--- NOTE | 2018-02-26 13:20 | General Progress Note ---
Subjective - Review of Systems Service Date: 02/26/18 Subjective: sleeping, comfortable Objective - Results Result Diagrams: 02/26/18 04:30 02/26/18 04:30 Recent Labs: Laboratory Last Values WBC 9.2 Th/cmm (4.8-10.8) 02/26/18 04:30 RBC 3.01 Mil/cmm (3.80-5.80) L 02/26/18 04:30 Hgb 8.9 gm/dL (12-16) L 02/26/18 04:30 Hct 27.3 % (41.0-60) L 02/26/18 04:30 MCV 90.5 fl (80-99) 02/26/18 04:30 MCH 29.5 pg (27.0-31.0) 02/26/18 04:30 MCHC Differential 32.6 pg (28.0-36.0) 02/26/18 04:30 RDW 15.3 % (11.5-20.0) 02/26/18 04:30 Plt Count 284 Th/cmm (150-400) 02/26/18 04:30 MPV 6.6 fl 02/26/18 04:30 Neutrophils % 61.2 % (40.0-80.0) 02/26/18 04:30 Lymphocytes % 19.3 % (20.0-50.0) L 02/26/18 04:30 Monocytes % 11.3 % (2.0-10.0) H 02/26/18 04:30 Eosinophils % 7.3 % (0.0-5.0) H 02/26/18 04:30 Basophils % 0.9 % (0.0-2.0) 02/26/18 04:30 ESR 87 mm/hr (0-20) H 01/31/18 04:15 PT 10.2 SECONDS (9.5-11.5) 02/20/18 09:40 INR 0.98 (0.5-1.4) 02/20/18 09:40 PTT (Actin FS) 30.6 SECONDS (26.0-38.0) 02/20/18 09:40 Sodium 136 mEq/L (136-145) 02/26/18 04:30 Potassium 3.6 mEq/L (3.5-5.1) 02/26/18 04:30 Chloride 105 mEq/L (98-107) 02/26/18 04:30 Carbon Dioxide 25.4 mEq/L (21.0-31.0) 02/26/18 04:30 Anion Gap 9.2 (7.0-16.0) 02/26/18 04:30 BUN 20 mg/dL (7-25) 02/26/18 04:30 Creatinine 4.3 mg/dL (0.7-1.3) H* 02/26/18 04:30 Est GFR ( Amer) 17.9 ml/min (>90) 02/26/18 04:30 Est GFR (Non-Af Amer) 14.8 ml/min 02/26/18 04:30 BUN/Creatinine Ratio 4.7 02/26/18 04:30 Glucose 88 mg/dL (70-105) 02/26/18 04:30 POC Glucose 106 MG/DL (70 - 105) H 02/08/18 12:11 Hemoglobin A1c % 3.5 % (4.0-6.0) L 01/31/18 04:15 Whole Bld Lactic Acid 0.55 mmol/L (0.60-1.99) L 01/29/18 16:42 Calcium 8.7 mg/dL (8.6-10.3) 02/26/18 04:30 Phosphorus 4.1 mg/dL (2.5-5.0) 01/31/18 04:15 Magnesium 2.0 mg/dL (1.9-2.7) 02/26/18 04:30 Total Bilirubin 0.4 mg/dL (0.3-1.0) 02/23/18 04:45 AST 13 U/L (13-39) 02/23/18 04:45 ALT 6 U/L (7-52) L 02/23/18 04:45 Alkaline Phosphatase 59 U/L (34-104) 02/23/18 04:45 Creatine Kinase 12 U/L (30-223) L 01/29/18 16:42 Troponin I 0.02 ng/mL (0.01-0.05) 01/29/18 16:42 C-Reactive Protein 11.4 mg/dL (0.0-0.9) H 01/31/18 04:15 Total Protein 5.1 gm/dL (6.0-8.3) L 02/23/18 04:45 Albumin 2.1 gm/dL (4.2-5.5) L 02/23/18 04:45 Globulin 3.0 gm/dL 02/23/18 04:45 Albumin/Globulin Ratio 0.7 (1.0-1.8) L 02/23/18 04:45 Triglycerides 72 mg/dL (<150) 01/31/18 04:15 Cholesterol 97 mg/dL (<200) 01/31/18 04:15 LDL Cholesterol Direct 45 mg/dL (75-193) L 01/31/18 04:15 HDL Cholesterol 36 mg/dL (23-92) 01/31/18 04:15 TSH 2.15 uIU/ml (0.34-5.60) 01/31/18 04:15 PTH Intact 36 pg/mL (15-65) 02/01/18 05:22 Urine Source CLEAN C 02/17/18 16:59 Urine Color YELLOW 02/17/18 16:59 Urine Clarity HAZY (CLEAR) 02/17/18 16:59 Urine pH 8.5 (4.6 - 8.0) 02/17/18 16:59 Ur Specific [place] 1.020 (1.005-1.030) 02/17/18 16:59 Urine Protein >=300 mg/dL (NEGATIVE) 02/17/18 16:59 Urine Glucose (UA) 100 mg/dL (NEGATIVE) H 02/17/18 16:59 Urine Ketones NEGATIVE mg/dL (NEGATIVE) 02/17/18 16:59 Urine Blood LARGE (NEGATIVE) H 02/17/18 16:59 Urine Nitrate NEGATIVE (NEGATIVE) 02/17/18 16:59 Urine Bilirubin NEGATIVE (NEGATIVE) 02/17/18 16:59 Urine Urobilinogen 0.2 E.U./dL (0.2 - 1.0) 02/17/18 16:59 Ur Leukocyte Esterase SMALL (NEGATIVE) H 02/17/18 16:59 Urine RBC 25-50 /hpf (0-5) H 02/17/18 16:59 Urine WBC 6-10 /hpf (0-5) 02/17/18 16:59 Ur Epithelial Cells MODERATE /lpf (FEW) 02/17/18 16:59 Urine Bacteria FEW /hpf (NONE SEEN) 02/17/18 16:59 Fluid Source PLEURAL 02/01/18 11:00 Fluid Color PALE YELLOW 02/01/18 11:00 Fluid Appearance HAZY 02/01/18 11:00 Fluid WBC 149 /cumm 02/01/18 11:00 Fluid RBC 185 /cumm 02/01/18 11:00 Fluid Neutrophils 2 % 02/01/18 11:00 Fluid Lymphocytes 50 % 02/01/18 11:00 Fluid Monocytes 48 % 02/01/18 11:00 Fluid Glucose 75.0 mg/dL 02/01/18 11:00 Fluid Total Protein 2.3 g/dL 02/01/18 11:00 Fluid Amylase 61 U/L 02/01/18 11:00 Random Vancomycin 22.5 ug/mL (5.0-40.0) 02/04/18 05:52 Coccidioides Ab Negative (Neg:<1:2) 02/19/18 05:27 TB (QFT) Gold In Tube Negative (Negative) 02/18/18 19:50 TB Test (QFT) Mitogen 7.52 IU/mL 02/18/18 19:50 TB Test (QFT) Antigen 0.06 IU/mL 02/18/18 19:50 TB Test Antigen - Nil 0.00 IU/mL 02/18/18 19:50 TB Test TB - Nil 0.06 IU/mL 02/18/18 19:50 TB Test (QFT) Interp 02/18/18 19:50 Blood Type O POSITIVE 02/20/18 07:00 Antibody Screen NEGATIVE 02/20/18 07:00 - Physical Exam Vitals and I&O: Vital Signs Temp 99 F 02/26/18 13:00 Pulse 67 02/26/18 13:00 Resp 17 02/26/18 13:00 BP 137/66 02/26/18 13:00 Pulse Ox 96 02/26/18 13:00 Intake & Output 02/25/18 02/26/18 02/26/18 18:59 06:59 18:59 Intake Total 650 200 50 Output Total 30 60 Balance 620 140 50 Weight (lbs) 73.794 kg 74.072 kg Intake: Intake, IV Amount 50 50 Cefepime 1 gm In Dextrose 50 50 5% 50 ml @ 100 mls/hr IV Q24H [facility] Rx#:[id number] Oral 600 200 Output: Chest Tube Drainage 30 60 Right Lower Anterior 30 60 Chest Other: Weight Source Bedscale Bedscale Active Medications: Current Medications Acetaminophen (Tylenol) 650 mg PO Q6HR PRN PRN Reason: PAIN Stop: 03/30/18 23:07 Acetaminophen/Hydrocodone Bitart ([place] 5mg/325mg) 2 tab PO Q4H PRN PRN Reason: Pain (Moderate) Stop: 03/30/18 23:16 Last Admin: 02/18/18 22:42 Dose: 2 tab Al Hydrox/Mg Hydrox/Simethicone (Maalox) 30 ml PO Q4H PRN PRN Reason: Heartburn Stop: 04/17/18 22:02 Last Admin: 02/16/18 22:29 Dose: 30 ml Albuterol Sulfate (Albuterol 2.5mg/3ml Neb Ud) 2.5 mg HHN Q1H PRN PRN Reason: Respiratory Distress Stop: 03/31/18 07:59 Last Admin: 02/01/18 15:33 Dose: 2.5 mg Albuterol/Ipratropium (Duoneb Neb) 3 ml HHN Q4HRT [facility] Stop: 03/31/18 14:59 Last Admin: 02/26/18 10:48 Dose: Not Given Atorvastatin Calcium (Lipitor) 40 mg PO HS [facility] Stop: 03/31/18 20:59 Last Admin: 02/25/18 20:58 Dose: 40 mg Cinacalcet (Sensipar) 30 mg PO DAILY [facility] Stop: 03/31/18 08:59 Last Admin: 02/26/18 09:14 Dose: 30 mg Diclofenac Sodium (Voltaren) 50 mg PO BID [facility] Stop: 04/01/18 08:59 Last Admin: 02/26/18 09:14 Dose: 50 mg Docusate Sodium (Colace) 100 mg PO DAILY [facility] Stop: 03/31/18 08:59 Last Admin: 02/26/18 09:13 Dose: 100 mg Famotidine (Pepcid) 20 mg PO DAILY [facility] Stop: 04/18/18 08:59 Last Admin: 02/26/18 09:13 Dose: 20 mg Hydromorphone HCl (Dilaudid) 2 mg IVP Q4HR PRN PRN Reason: chest pain Stop: 04/21/18 13:55 Last Admin: 02/25/18 19:34 Dose: 2 mg Cefepime HCl 1 gm/ Dextrose 50 mls @ 100 mls/hr IV Q24H [facility] Stop: 04/26/18 10:59 Last Infusion: 02/26/18 10:50 Dose: Infused Ipratropium [place] (Atrovent Neb 0.5mg/2.5ml) 0.5 mg HHN Q6HRT [facility] Stop: 03/31/18 12:59 Last Admin: 02/24/18 18:54 Dose: Not Given Lactobacillus Rhamnosus (Culturelle 15b) 1 each PO DAILY [facility] Stop: 04/15/18 08:59 Last Admin: 02/26/18 09:13 Dose: 1 each Megestrol Acetate (Megace) 400 mg PO DAILY [facility]; Protocol Stop: 03/31/18 08:59 Last Admin: 02/26/18 09:14 Dose: Not Given Midodrine (Proamatine) 10 mg PO TID [facility] Stop: 04/16/18 00:29 Last Admin: 02/26/18 09:14 Dose: Not Given Mirtazapine (Remeron) 30 mg PO HS [facility]; Protocol Stop: 04/26/18 20:59 Last Admin: 02/25/18 20:57 Dose: 30 mg Miscellaneous (Clinical Monitoring) 1 ea MC DAILY PRN PRN Reason: RENAL Stop: 04/08/18 08:30 Miscellaneous (Probiotic Screen) 1 ea PRN PRN PRN Reason: PROTOCOL Stop: 04/14/18 09:44 Sevelamer Carbonate (Renvela) 800 mg PO TID [facility] Stop: 03/30/18 23:14 Last Admin: 02/26/18 09:13 Dose: 800 mg Vitamin B Complex/Vit C/Folic Acid (Vitamin B Complex W/Vitamin C) 1 tab PO DAILY [facility] Stop: 03/31/18 08:59 Last Admin: 02/26/18 09:13 Dose: 1 tab General: Alert, Oriented x3, Cooperative, No acute distress HEENT: Atraumatic, PERRLA, EOMI, Mucous membr. moist/pink Neck: Supple, +2 carotid pulse wo bruit Cardiovascular: Regular rate, Normal S1, Normal S2 Lungs: Other (increased BS right lung field, (+) chest tube) Abdomen: Bowel sounds, Soft Extremities: no Edema Neurological: Sensation intact Skin: no Rash Psych/Mental Status: Mood NL - Procedures Procedures: Procedures Procedure Code Date DRAINAGE OF R PLEURAL CAV WITH DRAIN DEV, PERC APPROACH [id number] 01/29/18 DRAINAGE OF RIGHT LOWER LUNG LOBE, ENDO, DIAGN [id number] 01/29/18 Assessment/Plan - Problem List Patient Problems: All Active Problems RIGHT FACIAL SWELLING AND PAIN (Acute) - Assessment Assessment: ESRD on HD Right facial cellulitis Right lung opacification 2/2 effusion Cx UTI T2DM Anemia of CKD right PTX s/p chest tube S/P right lung surgery - Plan Plan: Lab - Result Diagrams 01/31/18 04:15 01/31/18 04:15 Current Medications Acetaminophen (Tylenol) 650 mg PO Q6HR PRN PRN Reason: PAIN Stop: 03/30/18 23:07 Acetaminophen/Hydrocodone Bitart ([place] 5mg/325mg) 2 tab PO Q4H PRN PRN Reason: Pain (Moderate) Stop: 03/30/18 23:16 Last Admin: 01/29/18 23:29 Dose: 2 tab Acetylcysteine (Mucomyst 20%) 2 ml HHN Q4HRT [facility] Stop: 03/31/18 14:59 Last Admin: 01/31/18 11:27 Dose: 2 ml Albuterol Sulfate (Albuterol 2.5mg/3ml Neb Ud) 2.5 mg HHN Q1H PRN PRN Reason: Respiratory Distress Stop: 03/31/18 07:59 Albuterol/Ipratropium (Duoneb Neb) 3 ml HHN Q4HRT [facility] Stop: 03/31/18 14:59 Last Admin: 01/31/18 11:27 Dose: 3 ml Atorvastatin Calcium (Lipitor) 40 mg PO HS [facility] Stop: 03/31/18 20:59 Last Admin: 01/30/18 21:19 Dose: 40 mg Cinacalcet (Sensipar) 30 mg PO DAILY [facility] Stop: 03/31/18 08:59 Last Admin: 01/31/18 08:28 Dose: Not Given Diclofenac Sodium (Voltaren) 50 mg PO BID [facility] Stop: 04/01/18 08:59 Last Admin: 01/31/18 08:25 Dose: 50 mg Docusate Sodium (Colace) 100 mg PO DAILY [facility] Stop: 03/31/18 08:59 Last Admin: 01/31/18 08:26 Dose: 100 mg Epoetin Vishal (Epogen) 10,000 units SUBQ MWF@1600 [facility] Stop: 04/01/18 15:59 Furosemide (Lasix) 40 mg PO DAILY [facility] Stop: 03/31/18 08:59 Last Admin: 01/31/18 08:26 Dose: 40 mg Heparin Sodium (Porcine) (Heparin) 5,000 units IVP ONCE@2100 [facility] Stop: 01/31/18 21:01 Last Admin: 01/30/18 21:18 Dose: 5,000 units Ceftriaxone Sodium 1 gm/ (Sodium Chloride) 50 mls @ 100 mls/hr IV Q24HR [facility] Stop: 03/31/18 18:59 Last Infusion: 01/30/18 21:50 Dose: Infused Ipratropium [place] (Atrovent Neb 0.5mg/2.5ml) 0.5 mg HHN Q6HRT [facility] Stop: 03/31/18 12:59 Last Admin: 01/31/18 00:57 Dose: Not Given Lactobacillus Rhamnosus (Culturelle 15b) 1 each PO DAILY [facility] Stop: 03/30/18 23:14 Last Admin: 01/31/18 08:27 Dose: 1 each Megestrol Acetate (Megace) 400 mg PO DAILY [facility] PRN Reason: Protocol Stop: 03/31/18 08:59 Last Admin: 01/31/18 09:31 Dose: Not Given Metoprolol Tartrate (Lopressor) 50 mg PO BID [facility] Stop: 03/30/18 23:14 Last Admin: 01/31/18 08:27 Dose: 50 mg Midodrine (Proamatine) 5 mg PO TID PRN PRN Reason: HYPOTENSION Stop: 03/30/18 23:07 Miscellaneous (Vancomycin Iv Per Pharmacy) 1 ea MC PRN [facility] Stop: 03/30/18 21:44 Morphine Sulfate (Morphine) 1 mg IVP Q4HR PRN PRN Reason: Pain (Severe) Stop: 03/30/18 23:17 Last Admin: 01/31/18 08:17 Dose: 1 mg Sevelamer Carbonate (Renvela) 800 mg PO TID [facility] Stop: 03/30/18 23:14 Last Admin: 01/31/18 08:28 Dose: 800 mg Vitamin B Complex/Vit C/Folic Acid (Vitamin B Complex W/Vitamin C) 1 tab PO DAILY [facility] Stop: 03/31/18 08:59 Lab - Result Diagrams 02/26/18 04:30 02/26/18 04:30 0 continue Rocephin WBC up to 9.2 bronchoscopy: no endobronchial lesion CXR: persistent right effusion, PNA surgery revealed trapped lung CT drain 45 ml overnite for HD in am Nutritional Asmnt/Malnutr-PDOC - Dietary Evaluation Malnutrition Findings (Please click <Entered> for more info): Nutritional Asmnt/Malnutrition Start: 02/03/18 12: 10 Text: Status: Complete Freq: Protocol: Document 02/03/18 12:10 RICO (Rec: 02/03/18 12:31 [email or web address] [email or web address]) Nutritional Asmnt/Malnutrition Patient General Information Nutritional Screening Moderate Risk Diagnosis Rt facuial cellulitis, rt pleural effusion Pertinent Medical Hx/Surgical Hx ESRD on dialysis x 7 years, COPD, hyperlipidemia, Type 2 diabetes Subjective Information Per H&P, patient was on peritoneal dialysis up to a few months ago when he was diagnosed with peritonitis ( now on HD TTS). Per nursing notes, pt refusing some medications. Diet education not appropriate at this time. Current Diet Order/ Nutrition Support 60 gm CCHO, 1200 ml fluid restriction Patient / S.O Not Indicated Pertinent Medications lipitor, Sensipar, colace, lasix, Epogen, Megac[place] abx, Renvela, Vitamin B complex with C Pertinent Labs ((02/02) Cr 4.5, Ca 8.5, albumin 24 Nutritional Hx/Data Height 1.68 m Height (Calculated Centimeters) 167.6 Current Weight (lbs) 79.379 kg Weight (Calculated Kilograms) 79.4 Weight (Calculated Grams) 20063.7 [place] Body Weight 142 % [place] Body Weight 123 Body Mass Index (BMI) 28.2 Recent Weight Change No Weight Status Overweight GI Symptoms GI Symptoms None Last BM 02/02 x 1 Difficult in: None Food Allergies No Cultural/Ethnic/Mormonism Belief none indicated Usual diet at home unknown Skin Integrity/Comment: Ba 15, cellulitis facial Current %PO Good (75-100%) Estimated Nutritional Goals BEE in Kcals: Adj wt of IBW Calories/Kcals/Kg 27-32 kcal/kg using 68.2 kg Adj wt Kcals Calculated 6091-1059 kcal/day Protein: Adj wt of IBW Protein g/k.2-1.5 gm/kg (HD) Protein Calculated 80-100 gm/day Fluid: ml Per MD due to HD Nutritional Problem 1. Problem Problem Increased nutrient needs related to Etiology impaired skin integrity/ dialysis aeb Signs/Symptoms: Facial cellulitis and on HD Intervention/Recommendation Comments Consider modifying diet to 2gm sodium. Glucose/HG1AC low, no need for Diabetic restriction . Continue to monitor K and Phosphorus levels and need for Renal diet (not needed at this time.) Consider Prosource with meals for added protein due to cellulitis and HD. Expected Outcomes/Goals Expected Outcomes/Goals oral intake to meet >75% of nutrient needs, nutritino related labs normalize, weight stable.
--- NOTE | 2018-02-26 18:28 | Infectious Disease Prog Note ---
Infectious Disease Subjective - Review of Systems Service Date: 02/26/18 Subjective: Patient is in ICU. No fever. Infectious Disease Objective - Results Result Diagrams: 02/26/18 04:30 02/26/18 04:30 Recent Labs: Laboratory Last Values WBC 9.2 Th/cmm (4.8-10.8) 02/26/18 04:30 RBC 3.01 Mil/cmm (3.80-5.80) L 02/26/18 04:30 Hgb 8.9 gm/dL (12-16) L 02/26/18 04:30 Hct 27.3 % (41.0-60) L 02/26/18 04:30 MCV 90.5 fl (80-99) 02/26/18 04:30 MCH 29.5 pg (27.0-31.0) 02/26/18 04:30 MCHC Differential 32.6 pg (28.0-36.0) 02/26/18 04:30 RDW 15.3 % (11.5-20.0) 02/26/18 04:30 Plt Count 284 Th/cmm (150-400) 02/26/18 04:30 MPV 6.6 fl 02/26/18 04:30 Neutrophils % 61.2 % (40.0-80.0) 02/26/18 04:30 Lymphocytes % 19.3 % (20.0-50.0) L 02/26/18 04:30 Monocytes % 11.3 % (2.0-10.0) H 02/26/18 04:30 Eosinophils % 7.3 % (0.0-5.0) H 02/26/18 04:30 Basophils % 0.9 % (0.0-2.0) 02/26/18 04:30 ESR 87 mm/hr (0-20) H 01/31/18 04:15 PT 10.2 SECONDS (9.5-11.5) 02/20/18 09:40 INR 0.98 (0.5-1.4) 02/20/18 09:40 PTT (Actin FS) 30.6 SECONDS (26.0-38.0) 02/20/18 09:40 Sodium 136 mEq/L (136-145) 02/26/18 04:30 Potassium 3.6 mEq/L (3.5-5.1) 02/26/18 04:30 Chloride 105 mEq/L (98-107) 02/26/18 04:30 Carbon Dioxide 25.4 mEq/L (21.0-31.0) 02/26/18 04:30 Anion Gap 9.2 (7.0-16.0) 02/26/18 04:30 BUN 20 mg/dL (7-25) 02/26/18 04:30 Creatinine 4.3 mg/dL (0.7-1.3) H* 02/26/18 04:30 Est GFR ( Amer) 17.9 ml/min (>90) 02/26/18 04:30 Est GFR (Non-Af Amer) 14.8 ml/min 02/26/18 04:30 BUN/Creatinine Ratio 4.7 02/26/18 04:30 Glucose 88 mg/dL (70-105) 02/26/18 04:30 POC Glucose 106 MG/DL (70 - 105) H 02/08/18 12:11 Hemoglobin A1c % 3.5 % (4.0-6.0) L 01/31/18 04:15 Whole Bld Lactic Acid 0.55 mmol/L (0.60-1.99) L 01/29/18 16:42 Calcium 8.7 mg/dL (8.6-10.3) 02/26/18 04:30 Phosphorus 4.1 mg/dL (2.5-5.0) 01/31/18 04:15 Magnesium 2.0 mg/dL (1.9-2.7) 02/26/18 04:30 Total Bilirubin 0.4 mg/dL (0.3-1.0) 02/23/18 04:45 AST 13 U/L (13-39) 02/23/18 04:45 ALT 6 U/L (7-52) L 02/23/18 04:45 Alkaline Phosphatase 59 U/L (34-104) 02/23/18 04:45 Creatine Kinase 12 U/L (30-223) L 01/29/18 16:42 Troponin I 0.02 ng/mL (0.01-0.05) 01/29/18 16:42 C-Reactive Protein 11.4 mg/dL (0.0-0.9) H 01/31/18 04:15 Total Protein 5.1 gm/dL (6.0-8.3) L 02/23/18 04:45 Albumin 2.1 gm/dL (4.2-5.5) L 02/23/18 04:45 Globulin 3.0 gm/dL 02/23/18 04:45 Albumin/Globulin Ratio 0.7 (1.0-1.8) L 02/23/18 04:45 Triglycerides 72 mg/dL (<150) 01/31/18 04:15 Cholesterol 97 mg/dL (<200) 01/31/18 04:15 LDL Cholesterol Direct 45 mg/dL (75-193) L 01/31/18 04:15 HDL Cholesterol 36 mg/dL (23-92) 01/31/18 04:15 TSH 2.15 uIU/ml (0.34-5.60) 01/31/18 04:15 PTH Intact 36 pg/mL (15-65) 02/01/18 05:22 Urine Source CLEAN C 02/17/18 16:59 Urine Color YELLOW 02/17/18 16:59 Urine Clarity HAZY (CLEAR) 02/17/18 16:59 Urine pH 8.5 (4.6 - 8.0) 02/17/18 16:59 Ur Specific [place] 1.020 (1.005-1.030) 02/17/18 16:59 Urine Protein >=300 mg/dL (NEGATIVE) 02/17/18 16:59 Urine Glucose (UA) 100 mg/dL (NEGATIVE) H 02/17/18 16:59 Urine Ketones NEGATIVE mg/dL (NEGATIVE) 02/17/18 16:59 Urine Blood LARGE (NEGATIVE) H 02/17/18 16:59 Urine Nitrate NEGATIVE (NEGATIVE) 02/17/18 16:59 Urine Bilirubin NEGATIVE (NEGATIVE) 02/17/18 16:59 Urine Urobilinogen 0.2 E.U./dL (0.2 - 1.0) 02/17/18 16:59 Ur Leukocyte Esterase SMALL (NEGATIVE) H 02/17/18 16:59 Urine RBC 25-50 /hpf (0-5) H 02/17/18 16:59 Urine WBC 6-10 /hpf (0-5) 02/17/18 16:59 Ur Epithelial Cells MODERATE /lpf (FEW) 02/17/18 16:59 Urine Bacteria FEW /hpf (NONE SEEN) 02/17/18 16:59 Fluid Source PLEURAL 02/01/18 11:00 Fluid Color PALE YELLOW 02/01/18 11:00 Fluid Appearance HAZY 02/01/18 11:00 Fluid WBC 149 /cumm 02/01/18 11:00 Fluid RBC 185 /cumm 02/01/18 11:00 Fluid Neutrophils 2 % 02/01/18 11:00 Fluid Lymphocytes 50 % 02/01/18 11:00 Fluid Monocytes 48 % 02/01/18 11:00 Fluid Glucose 75.0 mg/dL 02/01/18 11:00 Fluid Total Protein 2.3 g/dL 02/01/18 11:00 Fluid Amylase 61 U/L 02/01/18 11:00 Random Vancomycin 22.5 ug/mL (5.0-40.0) 02/04/18 05:52 Coccidioides Ab Negative (Neg:<1:2) 02/19/18 05:27 TB (QFT) Gold In Tube Negative (Negative) 02/18/18 19:50 TB Test (QFT) Mitogen 7.52 IU/mL 02/18/18 19:50 TB Test (QFT) Antigen 0.06 IU/mL 02/18/18 19:50 TB Test Antigen - Nil 0.00 IU/mL 02/18/18 19:50 TB Test TB - Nil 0.06 IU/mL 02/18/18 19:50 TB Test (QFT) Interp 02/18/18 19:50 Blood Type O POSITIVE 02/20/18 07:00 Antibody Screen NEGATIVE 02/20/18 07:00 - Physical Exam Vitals and I&O: Vital Signs Temp 99.2 F 02/26/18 16:00 Pulse 76 02/26/18 16:00 Resp 18 02/26/18 16:00 BP 145/69 02/26/18 16:00 Pulse Ox 100 02/26/18 16:00 Intake & Output 02/25/18 02/26/18 02/26/18 18:59 06:59 18:59 Intake Total 650 200 450 Output Total 30 60 75 Balance 620 140 375 Weight (lbs) 73.794 kg 74.072 kg 73.765 kg Intake: Intake, IV Amount 50 50 Cefepime 1 gm In Dextrose 50 50 5% 50 ml @ 100 mls/hr IV Q24H [facility] Rx#:[id number] Oral 600 200 400 Output: Chest Tube Drainage 30 60 75 Right Lower Anterior 30 60 75 Chest Urine 0 Other: # Voids 0 # Bowel Movements 0 Weight Source Bedscale Bedscale Bedscale Active Medications: Current Medications Acetaminophen (Tylenol) 650 mg PO Q6HR PRN PRN Reason: PAIN Stop: 03/30/18 23:07 Acetaminophen/Hydrocodone Bitart ([place] 5mg/325mg) 2 tab PO Q4H PRN PRN Reason: Pain (Moderate) Stop: 03/30/18 23:16 Last Admin: 02/18/18 22:42 Dose: 2 tab Al Hydrox/Mg Hydrox/Simethicone (Maalox) 30 ml PO Q4H PRN PRN Reason: Heartburn Stop: 04/17/18 22:02 Last Admin: 02/16/18 22:29 Dose: 30 ml Albuterol Sulfate (Albuterol 2.5mg/3ml Neb Ud) 2.5 mg HHN Q1H PRN PRN Reason: Respiratory Distress Stop: 03/31/18 07:59 Last Admin: 02/01/18 15:33 Dose: 2.5 mg Albuterol/Ipratropium (Duoneb Neb) 3 ml HHN Q4HRT [facility] Stop: 03/31/18 14:59 Last Admin: 02/26/18 14:49 Dose: Not Given Atorvastatin Calcium (Lipitor) 40 mg PO HS [facility] Stop: 03/31/18 20:59 Last Admin: 02/25/18 20:58 Dose: 40 mg Cinacalcet (Sensipar) 30 mg PO DAILY [facility] Stop: 03/31/18 08:59 Last Admin: 02/26/18 09:14 Dose: 30 mg Diclofenac Sodium (Voltaren) 50 mg PO BID [facility] Stop: 04/01/18 08:59 Last Admin: 02/26/18 17:29 Dose: Not Given Docusate Sodium (Colace) 100 mg PO DAILY [facility] Stop: 03/31/18 08:59 Last Admin: 02/26/18 09:13 Dose: 100 mg Famotidine (Pepcid) 20 mg PO DAILY [facility] Stop: 04/18/18 08:59 Last Admin: 02/26/18 09:13 Dose: 20 mg Hydromorphone HCl (Dilaudid) 2 mg IVP Q4HR PRN PRN Reason: chest pain Stop: 04/21/18 13:55 Last Admin: 02/25/18 19:34 Dose: 2 mg Cefepime HCl 1 gm/ Dextrose 50 mls @ 100 mls/hr IV Q24H [facility] Stop: 04/26/18 10:59 Last Infusion: 02/26/18 10:50 Dose: Infused Ipratropium [place] (Atrovent Neb 0.5mg/2.5ml) 0.5 mg HHN Q6HRT [facility] Stop: 03/31/18 12:59 Last Admin: 02/24/18 18:54 Dose: Not Given Lactobacillus Rhamnosus (Culturelle 15b) 1 each PO DAILY [facility] Stop: 04/15/18 08:59 Last Admin: 02/26/18 09:13 Dose: 1 each Megestrol Acetate (Megace) 400 mg PO DAILY [facility]; Protocol Stop: 03/31/18 08:59 Last Admin: 02/26/18 09:14 Dose: Not Given Midodrine (Proamatine) 10 mg PO TID [facility] Stop: 04/16/18 00:29 Last Admin: 02/26/18 13:21 Dose: Not Given Mirtazapine (Remeron) 30 mg PO HS [facility]; Protocol Stop: 04/26/18 20:59 Last Admin: 02/25/18 20:57 Dose: 30 mg Miscellaneous (Clinical Monitoring) 1 ea MC DAILY PRN PRN Reason: RENAL Stop: 04/08/18 08:30 Miscellaneous (Probiotic Screen) 1 ea PRN PRN PRN Reason: PROTOCOL Stop: 04/14/18 09:44 Sevelamer Carbonate (Renvela) 800 mg PO TID [facility] Stop: 03/30/18 23:14 Last Admin: 02/26/18 13:21 Dose: Not Given Vitamin B Complex/Vit C/Folic Acid (Vitamin B Complex W/Vitamin C) 1 tab PO DAILY [facility] Stop: 03/31/18 08:59 Last Admin: 02/26/18 09:13 Dose: 1 tab General: no acute distress, well developed, well nourished HEENT: atraumatic, normocephalic, PERRLA, EOMI, moist mucous membrane Neck: supple, no thyromegaly, no lymphadenopathy, no rigid, no lines Cardiovascular: S1S2, regular Lungs: clear to percussion, other (right sided chest tube.) Abdomen: soft, no tender, no distended, no mass, no hepatomegaly, no splenomegaly Extremities: no cyanosis, no clubbing, no edema Neurological: awake, alert, oriented, CN 2-12 intact Skin: intact - Procedures Procedures: Procedures Procedure Code Date DRAINAGE OF R PLEURAL CAV WITH DRAIN DEV, PERC APPROACH [id number] 01/29/18 DRAINAGE OF RIGHT LOWER LUNG LOBE, ENDO, DIAGN [id number] 01/29/18 Infectious Disease Assmt/Plan - Problem List Patient Problems: All Active Problems RIGHT FACIAL SWELLING AND PAIN (Acute) - Assessment Assessment: 1. Pleural effusion with lymphocyte predominance. Empyema culture growing Pseudomonas. It is not clear whether it is from the bronchoalveolar lavage are from the pleural fluid. TB ruled out. 2. Pseudomonas pneumonia. 3. Chronic kidney disease stage 5, on hemodialysis. 4. Diabetes mellitus type 2. 5. Chronic obstructive pulmonary disease. 6. Hyperlipidemia. 7. Urinary tract infection, treated. 8. Hyperlipidemia. - Plan Plan: Continue the same treatment. Check pleural fluid for adenosine deaminase. Nutritional Asmnt/Malnutr-PDOC - Dietary Evaluation Malnutrition Findings (Please click <Entered> for more info): Nutritional Asmnt/Malnutrition Start: 02/03/18 12: 10 Text: Status: Complete Freq: Protocol: Document 02/03/18 12:10 MMULHERN (Rec: 02/03/18 12:31 [email or web address] [email or web address]) Nutritional Asmnt/Malnutrition Patient General Information Nutritional Screening Moderate Risk Diagnosis Rt facuial cellulitis, rt pleural effusion Pertinent Medical Hx/Surgical Hx ESRD on dialysis x 7 years, COPD, hyperlipidemia, Type 2 diabetes Subjective Information Per H&P, patient was on peritoneal dialysis up to a few months ago when he was diagnosed with peritonitis ( now on HD TTS). Per nursing notes, pt refusing some medications. Diet education not appropriate at this time. Current Diet Order/ Nutrition Support 60 gm CCHO, 1200 ml fluid restriction Patient / S.O Not Indicated Pertinent Medications lipitor, Sensipar, colace, lasix, Epogen, Megacem abx, Renvela, Vitamin B complex with C Pertinent Labs ((02/02) Cr 4.5, Ca 8.5, albumin 24 Nutritional Hx/Data Height 1.68 m Height (Calculated Centimeters) 167.6 Current Weight (lbs) 79.379 kg Weight (Calculated Kilograms) 79.4 Weight (Calculated Grams) 11093.7 [place] Body Weight 142 % [place] Body Weight 123 Body Mass Index (BMI) 28.2 Recent Weight Change No Weight Status Overweight GI Symptoms GI Symptoms None Last BM 02/02 x 1 Difficult in: None Food Allergies No Cultural/Ethnic/Jewish Belief none indicated Usual diet at home unknown Skin Integrity/Comment: Ba 15, cellulitis facial Current %PO Good (75-100%) Estimated Nutritional Goals BEE in Kcals: Adj wt of IBW Calories/Kcals/Kg 27-32 kcal/kg using 68.2 kg Adj wt Kcals Calculated 4568-9991 kcal/day Protein: Adj wt of IBW Protein g/k.2-1.5 gm/kg (HD) Protein Calculated 80-100 gm/day Fluid: ml Per MD due to HD Nutritional Problem 1. Problem Problem Increased nutrient needs related to Etiology impaired skin integrity/ dialysis aeb Signs/Symptoms: Facial cellulitis and on HD Intervention/Recommendation Comments Consider modifying diet to 2gm sodium. Glucose/HG1AC low, no need for Diabetic restriction . Continue to monitor K and Phosphorus levels and need for Renal diet (not needed at this time.) Consider Prosource with meals for added protein due to cellulitis and HD. Expected Outcomes/Goals Expected Outcomes/Goals oral intake to meet >75% of nutrient needs, nutritino related labs normalize, weight stable.
[2018-02-26] MEDS: Ipratropium Neb 0.5 mg/2.5 mL UD HHN SCH (19:26)
[2018-02-26] MEDS: HYDROmorphone 2 mg/mL 1mL Vial IVP PRN (23:50)
[2018-02-27] MEDS: Albuterol/Ipratropium Neb 3 ML AERS HHN SCH ×6 (02:40→22:13)
[2018-02-27 06:40] LABS: % BASOPHILS 1.2 % (0.0-2.0); % EOSINOPHILS 8.9 % (0.0-5.0); % LYMPHOCYTES 16.8 % (20.0-50.0); % MONOCYTES 7.5 % (2.0-10.0); % NEUTROPHILS 65.6 % (40.0-80.0); BASOPHILE ABSOLUTE 0.1 Th/cumm (0-0.2); HEMATOCRIT 30.7 % (41.0-60); HEMOGLOBIN 10.1 gm/dL (12-16); LYMPHOCYTE ABSOLUTE 1.8 Th/cmm (1.5-3.0); MEAN CELL VOLUME 89.9 fl (80-99); MEAN CORPUSCULAR HEMOGLOBIN 29.7 pg (27.0-31.0); MEAN PLATELET VOLUME 6.3 fl; MONOCYTE ABSOLUTE 0.8 Th/cmm (0.3-1.0); PLATELET COUNT 346 Th/cmm (150-400); RED BLOOD COUNT 3.41 Mil/cmm (3.80-5.80); RED CELL DISTRIBUTION WIDTH 15.1 % (11.5-20.0); WHITE BLOOD COUNT 10.7 Th/cmm (4.8-10.8)
[2018-02-27 07:08] LABS: ANION GAP 11.1 (7.0-16.0); CALCIUM SERUM 9.1 mg/dL (8.6-10.3); CARBON DIOXIDE 25.8 mEq/L (21.0-31.0); CREATININE - SERUM 5.7 mg/dL (0.7-1.3); GFR AFRICAN-AMERICAN 12.9 ml/min (>90); GFR NON AFRICAN-AMERICAN 10.7 ml/min; POTASSIUM SERUM 3.9 mEq/L (3.5-5.1)
[2018-02-27] MEDS: Ipratropium Neb 0.5 mg/2.5 mL UD HHN SCH ×4 (07:26→19:47)
--- NOTE | 2018-02-27 11:30 | General Progress Note ---
Subjective - Review of Systems Service Date: 02/27/18 Subjective: sleeping, comfortable Objective - Results Result Diagrams: 02/27/18 06:20 02/27/18 06:20 Recent Labs: Laboratory Last Values WBC 10.7 Th/cmm (4.8-10.8) 02/27/18 06:20 RBC 3.41 Mil/cmm (3.80-5.80) L 02/27/18 06:20 Hgb 10.1 gm/dL (12-16) L 02/27/18 06:20 Hct 30.7 % (41.0-60) L 02/27/18 06:20 MCV 89.9 fl (80-99) 02/27/18 06:20 MCH 29.7 pg (27.0-31.0) 02/27/18 06:20 MCHC Differential 33.0 pg (28.0-36.0) 02/27/18 06:20 RDW 15.1 % (11.5-20.0) 02/27/18 06:20 Plt Count 346 Th/cmm (150-400) 02/27/18 06:20 MPV 6.3 fl 02/27/18 06:20 Neutrophils % 65.6 % (40.0-80.0) 02/27/18 06:20 Lymphocytes % 16.8 % (20.0-50.0) L 02/27/18 06:20 Monocytes % 7.5 % (2.0-10.0) 02/27/18 06:20 Eosinophils % 8.9 % (0.0-5.0) H 02/27/18 06:20 Basophils % 1.2 % (0.0-2.0) 02/27/18 06:20 ESR 87 mm/hr (0-20) H 01/31/18 04:15 PT 10.2 SECONDS (9.5-11.5) 02/20/18 09:40 INR 0.98 (0.5-1.4) 02/20/18 09:40 PTT (Actin FS) 30.6 SECONDS (26.0-38.0) 02/20/18 09:40 Sodium 138 mEq/L (136-145) 02/27/18 06:20 Potassium 3.9 mEq/L (3.5-5.1) 02/27/18 06:20 Chloride 105 mEq/L (98-107) 02/27/18 06:20 Carbon Dioxide 25.8 mEq/L (21.0-31.0) 02/27/18 06:20 Anion Gap 11.1 (7.0-16.0) 02/27/18 06:20 BUN 30 mg/dL (7-25) H 02/27/18 06:20 Creatinine 5.7 mg/dL (0.7-1.3) H* 02/27/18 06:20 Est GFR ( Amer) 12.9 ml/min (>90) 02/27/18 06:20 Est GFR (Non-Af Amer) 10.7 ml/min 02/27/18 06:20 BUN/Creatinine Ratio 5.3 02/27/18 06:20 Glucose 81 mg/dL (70-105) 02/27/18 06:20 POC Glucose 106 MG/DL (70 - 105) H 02/08/18 12:11 Hemoglobin A1c % 3.5 % (4.0-6.0) L 01/31/18 04:15 Whole Bld Lactic Acid 0.55 mmol/L (0.60-1.99) L 01/29/18 16:42 Calcium 9.1 mg/dL (8.6-10.3) 02/27/18 06:20 Phosphorus 4.1 mg/dL (2.5-5.0) 01/31/18 04:15 Magnesium 2.0 mg/dL (1.9-2.7) 02/26/18 04:30 Total Bilirubin 0.4 mg/dL (0.3-1.0) 02/23/18 04:45 AST 13 U/L (13-39) 02/23/18 04:45 ALT 6 U/L (7-52) L 02/23/18 04:45 Alkaline Phosphatase 59 U/L (34-104) 02/23/18 04:45 Creatine Kinase 12 U/L (30-223) L 01/29/18 16:42 Troponin I 0.02 ng/mL (0.01-0.05) 01/29/18 16:42 C-Reactive Protein 11.4 mg/dL (0.0-0.9) H 01/31/18 04:15 Total Protein 5.1 gm/dL (6.0-8.3) L 02/23/18 04:45 Albumin 2.1 gm/dL (4.2-5.5) L 02/23/18 04:45 Globulin 3.0 gm/dL 02/23/18 04:45 Albumin/Globulin Ratio 0.7 (1.0-1.8) L 02/23/18 04:45 Triglycerides 72 mg/dL (<150) 01/31/18 04:15 Cholesterol 97 mg/dL (<200) 01/31/18 04:15 LDL Cholesterol Direct 45 mg/dL (75-193) L 01/31/18 04:15 HDL Cholesterol 36 mg/dL (23-92) 01/31/18 04:15 TSH 2.15 uIU/ml (0.34-5.60) 01/31/18 04:15 PTH Intact 36 pg/mL (15-65) 02/01/18 05:22 Urine Source CLEAN C 02/17/18 16:59 Urine Color YELLOW 02/17/18 16:59 Urine Clarity HAZY (CLEAR) 02/17/18 16:59 Urine pH 8.5 (4.6 - 8.0) 02/17/18 16:59 Ur Specific [place] 1.020 (1.005-1.030) 02/17/18 16:59 Urine Protein >=300 mg/dL (NEGATIVE) 02/17/18 16:59 Urine Glucose (UA) 100 mg/dL (NEGATIVE) H 02/17/18 16:59 Urine Ketones NEGATIVE mg/dL (NEGATIVE) 02/17/18 16:59 Urine Blood LARGE (NEGATIVE) H 02/17/18 16:59 Urine Nitrate NEGATIVE (NEGATIVE) 02/17/18 16:59 Urine Bilirubin NEGATIVE (NEGATIVE) 02/17/18 16:59 Urine Urobilinogen 0.2 E.U./dL (0.2 - 1.0) 02/17/18 16:59 Ur Leukocyte Esterase SMALL (NEGATIVE) H 02/17/18 16:59 Urine RBC 25-50 /hpf (0-5) H 02/17/18 16:59 Urine WBC 6-10 /hpf (0-5) 02/17/18 16:59 Ur Epithelial Cells MODERATE /lpf (FEW) 02/17/18 16:59 Urine Bacteria FEW /hpf (NONE SEEN) 02/17/18 16:59 Fluid Source PLEURAL 02/01/18 11:00 Fluid Color PALE YELLOW 02/01/18 11:00 Fluid Appearance HAZY 02/01/18 11:00 Fluid WBC 149 /cumm 02/01/18 11:00 Fluid RBC 185 /cumm 02/01/18 11:00 Fluid Neutrophils 2 % 02/01/18 11:00 Fluid Lymphocytes 50 % 02/01/18 11:00 Fluid Monocytes 48 % 02/01/18 11:00 Fluid Glucose 75.0 mg/dL 02/01/18 11:00 Fluid Total Protein 2.3 g/dL 02/01/18 11:00 Fluid Amylase 61 U/L 02/01/18 11:00 Random Vancomycin 22.5 ug/mL (5.0-40.0) 02/04/18 05:52 Coccidioides Ab Negative (Neg:<1:2) 02/19/18 05:27 TB (QFT) Gold In Tube Negative (Negative) 02/18/18 19:50 TB Test (QFT) Mitogen 7.52 IU/mL 02/18/18 19:50 TB Test (QFT) Antigen 0.06 IU/mL 02/18/18 19:50 TB Test Antigen - Nil 0.00 IU/mL 02/18/18 19:50 TB Test TB - Nil 0.06 IU/mL 02/18/18 19:50 TB Test (QFT) Interp 02/18/18 19:50 Blood Type O POSITIVE 02/20/18 07:00 Antibody Screen NEGATIVE 02/20/18 07:00 - Physical Exam Vitals and I&O: Vital Signs Temp 97.6 F 02/27/18 08:00 Pulse 85 02/27/18 10:51 Resp 20 02/27/18 10:51 BP 158/79 02/27/18 08:00 Pulse Ox 98 02/27/18 10:51 Intake & Output 02/26/18 02/27/18 02/27/18 18:59 06:59 18:59 Intake Total 450 250 Output Total 75 350 Balance 375 -100 Weight (lbs) 73.765 kg 73.482 kg 74.026 kg Intake: Intake, IV Amount 50 Cefepime 1 gm In Dextrose 50 5% 50 ml @ 100 mls/hr IV Q24H [facility] Rx#:[id number] Oral 400 250 Output: Chest Tube Drainage 75 Right Lower Anterior 75 Chest Urine 0 350 Other: # Voids 0 # Bowel Movements 0 Weight Source Bedscale Estimated Bedscale Active Medications: Current Medications Acetaminophen (Tylenol) 650 mg PO Q6HR PRN PRN Reason: PAIN Stop: 03/30/18 23:07 Acetaminophen/Hydrocodone Bitart (Herreid 5mg/325mg) 2 tab PO Q4H PRN PRN Reason: Pain (Moderate) Stop: 03/30/18 23:16 Last Admin: 02/18/18 22:42 Dose: 2 tab Al Hydrox/Mg Hydrox/Simethicone (Maalox) 30 ml PO Q4H PRN PRN Reason: Heartburn Stop: 04/17/18 22:02 Last Admin: 02/16/18 22:29 Dose: 30 ml Albuterol Sulfate (Albuterol 2.5mg/3ml Neb Ud) 2.5 mg HHN Q1H PRN PRN Reason: Respiratory Distress Stop: 03/31/18 07:59 Last Admin: 02/01/18 15:33 Dose: 2.5 mg Albuterol/Ipratropium (Duoneb Neb) 3 ml HHN Q4HRT [facility] Stop: 03/31/18 14:59 Last Admin: 02/27/18 10:50 Dose: Not Given Atorvastatin Calcium (Lipitor) 40 mg PO HS [facility] Stop: 03/31/18 20:59 Last Admin: 02/26/18 21:46 Dose: 40 mg Cinacalcet (Sensipar) 30 mg PO DAILY [facility] Stop: 03/31/18 08:59 Last Admin: 02/26/18 09:14 Dose: 30 mg Diclofenac Sodium (Voltaren) 50 mg PO BID [facility] Stop: 04/01/18 08:59 Last Admin: 02/26/18 17:29 Dose: Not Given Docusate Sodium (Colace) 100 mg PO DAILY [facility] Stop: 03/31/18 08:59 Last Admin: 02/26/18 09:13 Dose: 100 mg Famotidine (Pepcid) 20 mg PO DAILY [facility] Stop: 04/18/18 08:59 Last Admin: 02/26/18 09:13 Dose: 20 mg Hydromorphone HCl (Dilaudid) 2 mg IVP Q4HR PRN PRN Reason: chest pain Stop: 04/21/18 13:55 Last Admin: 02/26/18 23:50 Dose: 2 mg Cefepime HCl 1 gm/ Dextrose 50 mls @ 100 mls/hr IV Q24H [facility] Stop: 04/26/18 10:59 Last Infusion: 02/26/18 10:50 Dose: Infused Ipratropium [place] (Atrovent Neb 0.5mg/2.5ml) 0.5 mg HHN Q6HRT [facility] Stop: 03/31/18 12:59 Last Admin: 02/27/18 07:26 Dose: Not Given Lactobacillus Rhamnosus (Culturelle 15b) 1 each PO DAILY [facility] Stop: 04/15/18 08:59 Last Admin: 02/26/18 09:13 Dose: 1 each Megestrol Acetate (Megace) 400 mg PO DAILY [facility]; Protocol Stop: 03/31/18 08:59 Last Admin: 02/26/18 09:14 Dose: Not Given Midodrine (Proamatine) 10 mg PO TID [facility] Stop: 04/16/18 00:29 Last Admin: 02/26/18 21:49 Dose: 10 mg Mirtazapine (Remeron) 30 mg PO HS [facility]; Protocol Stop: 04/26/18 20:59 Last Admin: 02/26/18 21:50 Dose: 30 mg Miscellaneous (Clinical Monitoring) 1 ea DAILY PRN PRN Reason: RENAL Stop: 04/08/18 08:30 Miscellaneous (Probiotic Screen) 1 [facility] PRN PRN PRN Reason: PROTOCOL Stop: 04/14/18 09:44 Sevelamer Carbonate (Renvela) 800 mg PO TID [facility] Stop: 03/30/18 23:14 Last Admin: 02/26/18 21:49 Dose: 800 mg Vitamin B Complex/Vit C/Folic Acid (Vitamin B Complex W/Vitamin C) 1 tab PO DAILY [facility] Stop: 03/31/18 08:59 Last Admin: 02/26/18 09:13 Dose: 1 tab General: Alert, Oriented x3, Cooperative, No acute distress HEENT: Atraumatic, PERRLA, EOMI, Mucous membr. moist/pink Neck: Supple, +2 carotid pulse wo bruit Cardiovascular: Regular rate, Normal S1, Normal S2 Lungs: Other (increased BS right lung field, (+) chest tube) Abdomen: Bowel sounds, Soft Extremities: no Edema Neurological: Sensation intact Skin: no Rash Psych/Mental Status: Mood NL - Procedures Procedures: Procedures Procedure Code Date DRAINAGE OF R PLEURAL CAV WITH DRAIN DEV, PERC APPROACH [id number] 01/29/18 DRAINAGE OF RIGHT LOWER LUNG LOBE, ENDO, DIAGN [id number] 01/29/18 Assessment/Plan - Problem List Patient Problems: All Active Problems RIGHT FACIAL SWELLING AND PAIN (Acute) - Assessment Assessment: ESRD on HD Right facial cellulitis Right lung opacification 2/2 effusion Cx UTI T2DM Anemia of CKD right PTX s/p chest tube S/P right lung surgery - Plan Plan: Lab - Result Diagrams 01/31/18 04:15 01/31/18 04:15 Current Medications Acetaminophen (Tylenol) 650 mg PO Q6HR PRN PRN Reason: PAIN Stop: 03/30/18 23:07 Acetaminophen/Hydrocodone Bitart (Herreid 5mg/325mg) 2 tab PO Q4H PRN PRN Reason: Pain (Moderate) Stop: 03/30/18 23:16 Last Admin: 01/29/18 23:29 Dose: 2 tab Acetylcysteine (Mucomyst 20%) 2 ml HHN Q4HRT [facility] Stop: 03/31/18 14:59 Last Admin: 01/31/18 11:27 Dose: 2 ml Albuterol Sulfate (Albuterol 2.5mg/3ml Neb Ud) 2.5 mg HHN Q1H PRN PRN Reason: Respiratory Distress Stop: 03/31/18 07:59 Albuterol/Ipratropium (Duoneb Neb) 3 ml HHN Q4HRT [facility] Stop: 03/31/18 14:59 Last Admin: 01/31/18 11:27 Dose: 3 ml Atorvastatin Calcium (Lipitor) 40 mg PO HS [facility] Stop: 03/31/18 20:59 Last Admin: 01/30/18 21:19 Dose: 40 mg Cinacalcet (Sensipar) 30 mg PO DAILY [facility] Stop: 03/31/18 08:59 Last Admin: 01/31/18 08:28 Dose: Not Given Diclofenac Sodium (Voltaren) 50 mg PO BID [facility] Stop: 04/01/18 08:59 Last Admin: 01/31/18 08:25 Dose: 50 mg Docusate Sodium (Colace) 100 mg PO DAILY [facility] Stop: 03/31/18 08:59 Last Admin: 01/31/18 08:26 Dose: 100 mg Epoetin Vishal (Epogen) 10,000 units SUBQ MWF@1600 [facility] Stop: 04/01/18 15:59 Furosemide (Lasix) 40 mg PO DAILY [facility] Stop: 03/31/18 08:59 Last Admin: 01/31/18 08:26 Dose: 40 mg Heparin Sodium (Porcine) (Heparin) 5,000 units IVP ONCE@2100 [facility] Stop: 01/31/18 21:01 Last Admin: 01/30/18 21:18 Dose: 5,000 units Ceftriaxone Sodium 1 gm/ (Sodium Chloride) 50 mls @ 100 mls/hr IV Q24HR [facility] Stop: 03/31/18 18:59 Last Infusion: 01/30/18 21:50 Dose: Infused Ipratropium [place] (Atrovent Neb 0.5mg/2.5ml) 0.5 mg HHN Q6HRT [facility] Stop: 03/31/18 12:59 Last Admin: 01/31/18 00:57 Dose: Not Given Lactobacillus Rhamnosus (Culturelle 15b) 1 each PO DAILY [facility] Stop: 03/30/18 23:14 Last Admin: 01/31/18 08:27 Dose: 1 each Megestrol Acetate (Megace) 400 mg PO DAILY [facility] PRN Reason: Protocol Stop: 03/31/18 08:59 Last Admin: 01/31/18 09:31 Dose: Not Given Metoprolol Tartrate (Lopressor) 50 mg PO BID [facility] Stop: 03/30/18 23:14 Last Admin: 01/31/18 08:27 Dose: 50 mg Midodrine (Proamatine) 5 mg PO TID PRN PRN Reason: HYPOTENSION Stop: 03/30/18 23:07 Miscellaneous (Vancomycin Iv Per Pharmacy) 1 ea MC PRN [facility] Stop: 03/30/18 21:44 Morphine Sulfate (Morphine) 1 mg IVP Q4HR PRN PRN Reason: Pain (Severe) Stop: 03/30/18 23:17 Last Admin: 01/31/18 08:17 Dose: 1 mg Sevelamer Carbonate (Renvela) 800 mg PO TID [facility] Stop: 03/30/18 23:14 Last Admin: 01/31/18 08:28 Dose: 800 mg Vitamin B Complex/Vit C/Folic Acid (Vitamin B Complex W/Vitamin C) 1 tab PO DAILY [facility] Stop: 03/31/18 08:59 Lab - Result Diagrams 02/27/18 06:20 02/27/18 06:20 continue Rocephin WBC down to 10.7 bronchoscopy: no endobronchial lesion CXR: persistent right effusion, PNA surgery revealed trapped lung CT drain 75 ml overnite currently being dialyzed Nutritional Asmnt/Malnutr-PDOC - Dietary Evaluation Malnutrition Findings (Please click <Entered> for more info): Nutritional Asmnt/Malnutrition Start: 02/03/18 12: 10 Text: Status: Complete Freq: Protocol: Document 02/03/18 12:10 RICO (Rec: 02/03/18 12:31 [email or web address] [email or web address]) Nutritional Asmnt/Malnutrition Patient General Information Nutritional Screening Moderate Risk Diagnosis Rt facuial cellulitis, rt pleural effusion Pertinent Medical Hx/Surgical Hx ESRD on dialysis x 7 years, COPD, hyperlipidemia, Type 2 diabetes Subjective Information Per H&P, patient was on peritoneal dialysis up to a few months ago when he was diagnosed with peritonitis ( now on HD TTS). Per nursing notes, pt refusing some medications. Diet education not appropriate at this time. Current Diet Order/ Nutrition Support 60 gm CCHO, 1200 ml fluid restriction Patient / S.O Not Indicated Pertinent Medications lipitor, Sensipar, colace, lasix, Epogen, Megacem abx, Renvela, Vitamin B complex with C Pertinent Labs ((02/02) Cr 4.5, Ca 8.5, albumin 24 Nutritional Hx/Data Height 1.68 m Height (Calculated Centimeters) 167.6 Current Weight (lbs) 79.379 kg Weight (Calculated Kilograms) 79.4 Weight (Calculated Grams) 66640.7 [place] Body Weight 142 % [place] Body Weight 123 Body Mass Index (BMI) 28.2 Recent Weight Change No Weight Status Overweight GI Symptoms GI Symptoms None Last BM 02/02 x 1 Difficult in: None Food Allergies No Cultural/Ethnic/Mormonism Belief none indicated Usual diet at home unknown Skin Integrity/Comment: Ba 15, cellulitis facial Current %PO Good (75-100%) Estimated Nutritional Goals BEE in Kcals: Adj wt of IBW Calories/Kcals/Kg 27-32 kcal/kg using 68.2 kg Adj wt Kcals Calculated 5967-9408 kcal/day Protein: Adj wt of IBW Protein g/k.2-1.5 gm/kg (HD) Protein Calculated 80-100 gm/day Fluid: ml Per MD due to HD Nutritional Problem 1. Problem Problem Increased nutrient needs related to Etiology impaired skin integrity/ dialysis aeb Signs/Symptoms: Facial cellulitis and on HD Intervention/Recommendation Comments Consider modifying diet to 2gm sodium. Glucose/HG1AC low, no need for Diabetic restriction . Continue to monitor K and Phosphorus levels and need for Renal diet (not needed at this time.) Consider Prosource with meals for added protein due to cellulitis and HD. Expected Outcomes/Goals Expected Outcomes/Goals oral intake to meet >75% of nutrient needs, nutritino related labs normalize, weight stable.
[2018-02-27] MEDS: HYDROmorphone 2 mg/mL 1mL Vial IVP PRN (12:07)
[2018-02-27] MEDS: Lactobacillus Rhamnosus GG 15 Billion CFU CAP.SPRINK PO SCH (12:09)
[2018-02-27] MEDS: Vitamin B Complex w/Vitamin C Tab PO SCH (12:10)
--- NOTE | 2018-02-27 13:36 | Infectious Disease Prog Note ---
Infectious Disease Subjective - Review of Systems Service Date: 02/27/18 Subjective: Doing the same , no fever. Infectious Disease Objective - Results Result Diagrams: 02/27/18 06:20 02/28/18 05:35 Recent Labs: Laboratory Last Values WBC 10.7 Th/cmm (4.8-10.8) 02/27/18 06:20 RBC 3.41 Mil/cmm (3.80-5.80) L 02/27/18 06:20 Hgb 10.1 gm/dL (12-16) L 02/27/18 06:20 Hct 30.7 % (41.0-60) L 02/27/18 06:20 MCV 89.9 fl (80-99) 02/27/18 06:20 MCH 29.7 pg (27.0-31.0) 02/27/18 06:20 MCHC Differential 33.0 pg (28.0-36.0) 02/27/18 06:20 RDW 15.1 % (11.5-20.0) 02/27/18 06:20 Plt Count 346 Th/cmm (150-400) 02/27/18 06:20 MPV 6.3 fl 02/27/18 06:20 Neutrophils % 65.6 % (40.0-80.0) 02/27/18 06:20 Lymphocytes % 16.8 % (20.0-50.0) L 02/27/18 06:20 Monocytes % 7.5 % (2.0-10.0) 02/27/18 06:20 Eosinophils % 8.9 % (0.0-5.0) H 02/27/18 06:20 Basophils % 1.2 % (0.0-2.0) 02/27/18 06:20 ESR 87 mm/hr (0-20) H 01/31/18 04:15 PT 10.2 SECONDS (9.5-11.5) 02/20/18 09:40 INR 0.98 (0.5-1.4) 02/20/18 09:40 PTT (Actin FS) 30.6 SECONDS (26.0-38.0) 02/20/18 09:40 Sodium 138 mEq/L (136-145) 02/27/18 06:20 Potassium 3.9 mEq/L (3.5-5.1) 02/27/18 06:20 Chloride 105 mEq/L (98-107) 02/27/18 06:20 Carbon Dioxide 25.8 mEq/L (21.0-31.0) 02/27/18 06:20 Anion Gap 11.1 (7.0-16.0) 02/27/18 06:20 BUN 30 mg/dL (7-25) H 02/27/18 06:20 Creatinine 5.7 mg/dL (0.7-1.3) H* 02/27/18 06:20 Est GFR ( Amer) 12.9 ml/min (>90) 02/27/18 06:20 Est GFR (Non-Af Amer) 10.7 ml/min 02/27/18 06:20 BUN/Creatinine Ratio 5.3 02/27/18 06:20 Glucose 81 mg/dL (70-105) 02/27/18 06:20 POC Glucose 106 MG/DL (70 - 105) H 02/08/18 12:11 Hemoglobin A1c % 3.5 % (4.0-6.0) L 01/31/18 04:15 Whole Bld Lactic Acid 0.55 mmol/L (0.60-1.99) L 01/29/18 16:42 Calcium 9.1 mg/dL (8.6-10.3) 02/27/18 06:20 Phosphorus 4.1 mg/dL (2.5-5.0) 01/31/18 04:15 Magnesium 2.0 mg/dL (1.9-2.7) 02/26/18 04:30 Total Bilirubin 0.4 mg/dL (0.3-1.0) 02/23/18 04:45 AST 13 U/L (13-39) 02/23/18 04:45 ALT 6 U/L (7-52) L 02/23/18 04:45 Alkaline Phosphatase 59 U/L (34-104) 02/23/18 04:45 Creatine Kinase 12 U/L (30-223) L 01/29/18 16:42 Troponin I 0.02 ng/mL (0.01-0.05) 01/29/18 16:42 C-Reactive Protein 11.4 mg/dL (0.0-0.9) H 01/31/18 04:15 Total Protein 5.1 gm/dL (6.0-8.3) L 02/23/18 04:45 Albumin 2.1 gm/dL (4.2-5.5) L 02/23/18 04:45 Globulin 3.0 gm/dL 02/23/18 04:45 Albumin/Globulin Ratio 0.7 (1.0-1.8) L 02/23/18 04:45 Triglycerides 72 mg/dL (<150) 01/31/18 04:15 Cholesterol 97 mg/dL (<200) 01/31/18 04:15 LDL Cholesterol Direct 45 mg/dL (75-193) L 01/31/18 04:15 HDL Cholesterol 36 mg/dL (23-92) 01/31/18 04:15 TSH 2.15 uIU/ml (0.34-5.60) 01/31/18 04:15 PTH Intact 36 pg/mL (15-65) 02/01/18 05:22 Urine Source CLEAN C 02/17/18 16:59 Urine Color YELLOW 02/17/18 16:59 Urine Clarity HAZY (CLEAR) 02/17/18 16:59 Urine pH 8.5 (4.6 - 8.0) 02/17/18 16:59 Ur Specific [place] 1.020 (1.005-1.030) 02/17/18 16:59 Urine Protein >=300 mg/dL (NEGATIVE) 02/17/18 16:59 Urine Glucose (UA) 100 mg/dL (NEGATIVE) H 02/17/18 16:59 Urine Ketones NEGATIVE mg/dL (NEGATIVE) 02/17/18 16:59 Urine Blood LARGE (NEGATIVE) H 02/17/18 16:59 Urine Nitrate NEGATIVE (NEGATIVE) 02/17/18 16:59 Urine Bilirubin NEGATIVE (NEGATIVE) 02/17/18 16:59 Urine Urobilinogen 0.2 E.U./dL (0.2 - 1.0) 02/17/18 16:59 Ur Leukocyte Esterase SMALL (NEGATIVE) H 02/17/18 16:59 Urine RBC 25-50 /hpf (0-5) H 02/17/18 16:59 Urine WBC 6-10 /hpf (0-5) 02/17/18 16:59 Ur Epithelial Cells MODERATE /lpf (FEW) 02/17/18 16:59 Urine Bacteria FEW /hpf (NONE SEEN) 02/17/18 16:59 Fluid Source PLEURAL 02/01/18 11:00 Fluid Color PALE YELLOW 02/01/18 11:00 Fluid Appearance HAZY 02/01/18 11:00 Fluid WBC 149 /cumm 02/01/18 11:00 Fluid RBC 185 /cumm 02/01/18 11:00 Fluid Neutrophils 2 % 02/01/18 11:00 Fluid Lymphocytes 50 % 02/01/18 11:00 Fluid Monocytes 48 % 02/01/18 11:00 Fluid Glucose 75.0 mg/dL 02/01/18 11:00 Fluid Total Protein 2.3 g/dL 02/01/18 11:00 Fluid Amylase 61 U/L 02/01/18 11:00 Random Vancomycin 22.5 ug/mL (5.0-40.0) 02/04/18 05:52 Coccidioides Ab Negative (Neg:<1:2) 02/19/18 05:27 TB (QFT) Gold In Tube Negative (Negative) 02/18/18 19:50 TB Test (QFT) Mitogen 7.52 IU/mL 02/18/18 19:50 TB Test (QFT) Antigen 0.06 IU/mL 02/18/18 19:50 TB Test Antigen - Nil 0.00 IU/mL 02/18/18 19:50 TB Test TB - Nil 0.06 IU/mL 02/18/18 19:50 TB Test (QFT) Interp 02/18/18 19:50 Blood Type O POSITIVE 02/20/18 07:00 Antibody Screen NEGATIVE 02/20/18 07:00 - Physical Exam Vitals and I&O: Vital Signs Temp 97.4 F 02/27/18 11:34 Pulse 89 02/27/18 11:34 Resp 20 02/27/18 11:34 BP 101/66 02/27/18 11:34 Pulse Ox 97 02/27/18 11:34 Intake & Output 02/26/18 02/27/18 02/27/18 18:59 06:59 18:59 Intake Total 450 250 Output Total 75 350 Balance 375 -100 Weight (lbs) 73.765 kg 73.482 kg 74.026 kg Intake: Intake, IV Amount 50 Cefepime 1 gm In Dextrose 50 5% 50 ml @ 100 mls/hr IV Q24H [facility] Rx#:[id number] Oral 400 250 Output: Chest Tube Drainage 75 Right Lower Anterior 75 Chest Urine 0 350 Other: # Voids 0 # Bowel Movements 0 Weight Source Bedscale Estimated Bedscale Active Medications: Current Medications Acetaminophen (Tylenol) 650 mg PO Q6HR PRN PRN Reason: PAIN Stop: 03/30/18 23:07 Acetaminophen/Hydrocodone Bitart ([place] 5mg/325mg) 2 tab PO Q4H PRN PRN Reason: Pain (Moderate) Stop: 03/30/18 23:16 Last Admin: 02/18/18 22:42 Dose: 2 tab Al Hydrox/Mg Hydrox/Simethicone (Maalox) 30 ml PO Q4H PRN PRN Reason: Heartburn Stop: 04/17/18 22:02 Last Admin: 02/16/18 22:29 Dose: 30 ml Albuterol Sulfate (Albuterol 2.5mg/3ml Neb Ud) 2.5 mg HHN Q1H PRN PRN Reason: Respiratory Distress Stop: 03/31/18 07:59 Last Admin: 02/01/18 15:33 Dose: 2.5 mg Albuterol/Ipratropium (Duoneb Neb) 3 ml HHN Q4HRT [facility] Stop: 03/31/18 14:59 Last Admin: 02/27/18 10:50 Dose: Not Given Atorvastatin Calcium (Lipitor) 40 mg PO HS [facility] Stop: 03/31/18 20:59 Last Admin: 02/26/18 21:46 Dose: 40 mg Cinacalcet (Sensipar) 30 mg PO DAILY [facility] Stop: 03/31/18 08:59 Last Admin: 02/27/18 12:40 Dose: Not Given Diclofenac Sodium (Voltaren) 50 mg PO BID [facility] Stop: 04/01/18 08:59 Last Admin: 02/27/18 12:11 Dose: Not Given Docusate Sodium (Colace) 100 mg PO DAILY [facility] Stop: 03/31/18 08:59 Last Admin: 02/27/18 12:07 Dose: 100 mg Famotidine (Pepcid) 20 mg PO DAILY [facility] Stop: 04/18/18 08:59 Last Admin: 02/27/18 12:09 Dose: 20 mg Hydromorphone HCl (Dilaudid) 2 mg IVP Q4HR PRN PRN Reason: chest pain Stop: 04/21/18 13:55 Last Admin: 02/27/18 12:07 Dose: 2 mg Cefepime HCl 1 gm/ Dextrose 50 mls @ 100 mls/hr IV Q24H [facility] Stop: 04/26/18 10:59 Last Admin: 02/27/18 12:08 Dose: 100 mls/hr Ipratropium [place] (Atrovent Neb 0.5mg/2.5ml) 0.5 mg HHN Q6HRT [facility] Stop: 03/31/18 12:59 Last Admin: 02/27/18 07:26 Dose: Not Given Lactobacillus Rhamnosus (Culturelle 15b) 1 each PO DAILY [facility] Stop: 04/15/18 08:59 Last Admin: 02/27/18 12:09 Dose: 1 each Megestrol Acetate (Megace) 400 mg PO DAILY [facility]; Protocol Stop: 03/31/18 08:59 Last Admin: 02/27/18 12:10 Dose: Not Given Midodrine (Proamatine) 10 mg PO TID [facility] Stop: 04/16/18 00:29 Last Admin: 02/27/18 12:09 Dose: 10 mg Mirtazapine (Remeron) 30 mg PO HS [facility]; Protocol Stop: 04/26/18 20:59 Last Admin: 02/26/18 21:50 Dose: 30 mg Miscellaneous (Clinical Monitoring) 1 ea [facility] DAILY PRN PRN Reason: RENAL Stop: 04/08/18 08:30 Miscellaneous (Probiotic Screen) 1 ea [facility] PRN PRN PRN Reason: PROTOCOL Stop: 04/14/18 09:44 Sevelamer Carbonate (Renvela) 800 mg PO TID [facility] Stop: 03/30/18 23:14 Last Admin: 02/27/18 12:10 Dose: 800 mg Vitamin B Complex/Vit C/Folic Acid (Vitamin B Complex W/Vitamin C) 1 tab PO DAILY [facility] Stop: 03/31/18 08:59 Last Admin: 02/27/18 12:10 Dose: 1 tab General: no acute distress, well developed, well nourished HEENT: atraumatic, normocephalic, PERRLA Neck: supple, no thyromegaly Cardiovascular: S1S2, regular Lungs: other (decreased breath sounds on right and chest tubes x 2.), no clear to auscultation bilaterally, no clear to percussion Abdomen: soft, no tender, no distended, no mass, no hepatomegaly Extremities: no cyanosis, no clubbing, no edema Neurological: awake, alert, oriented, CN 2-12 intact Skin: intact - Procedures Procedures: Procedures Procedure Code Date DRAINAGE OF R PLEURAL CAV WITH DRAIN DEV, PERC APPROACH [id number] 01/29/18 DRAINAGE OF RIGHT LOWER LUNG LOBE, ENDO, DIAGN [id number] 01/29/18 Infectious Disease Assmt/Plan - Problem List Patient Problems: All Active Problems RIGHT FACIAL SWELLING AND PAIN (Acute) - Assessment Assessment: 1. Pleural effusion with lymphocyte predominance. Empyema culture growing Pseudomonas. 2. Pseudomonas pneumonia. 3. Chronic kidney disease stage 5, on hemodialysis. 4. Diabetes mellitus type 2. 5. Chronic obstructive pulmonary disease. 6. Hyperlipidemia. 7. Urinary tract infection, treated. 8. Hyperlipidemia. 9. S/p VATS and pleurodesis. Chest tubes in place. - Plan Plan: Continue the same treatment. Check pleural fluid for adenosine deaminase. Nutritional Asmnt/Malnutr-PDOC - Dietary Evaluation Malnutrition Findings (Please click <Entered> for more info): Nutritional Asmnt/Malnutrition Start: 02/03/18 12: 10 Text: Status: Complete Freq: Protocol: Document 02/03/18 12:10 MMULRAUL (Rec: 02/03/18 12:31 [email or web address] VALERIO- [email or web address]) Nutritional Asmnt/Malnutrition Patient General Information Nutritional Screening Moderate Risk Diagnosis Rt facuial cellulitis, rt pleural effusion Pertinent Medical Hx/Surgical Hx ESRD on dialysis x 7 years, COPD, hyperlipidemia, Type 2 diabetes Subjective Information Per H&P, patient was on peritoneal dialysis up to a few months ago when he was diagnosed with peritonitis ( now on HD TTS). Per nursing notes, pt refusing some medications. Diet education not appropriate at this time. Current Diet Order/ Nutrition Support 60 gm CCHO, 1200 ml fluid restriction Patient / S.O Not Indicated Pertinent Medications lipitor, Sensipar, colace, lasix, Epogen, Megacem abx, Renvela, Vitamin B complex with C Pertinent Labs ((02/02) Cr 4.5, Ca 8.5, albumin 24 Nutritional Hx/Data Height 1.68 m Height (Calculated Centimeters) 167.6 Current Weight (lbs) 79.379 kg Weight (Calculated Kilograms) 79.4 Weight (Calculated Grams) 48933.7 [place] Body Weight 142 % [place] Body Weight 123 Body Mass Index (BMI) 28.2 Recent Weight Change No Weight Status Overweight GI Symptoms GI Symptoms None Last BM 02/02 x 1 Difficult in: None Food Allergies No Cultural/Ethnic/Sikh Belief none indicated Usual diet at home unknown Skin Integrity/Comment: Ba 15, cellulitis facial Current %PO Good (75-100%) Estimated Nutritional Goals BEE in Kcals: Adj wt of IBW Calories/Kcals/Kg 27-32 kcal/kg using 68.2 kg Adj wt Kcals Calculated 0339-8099 kcal/day Protein: Adj wt of IBW Protein g/k.2-1.5 gm/kg (HD) Protein Calculated 80-100 gm/day Fluid: ml Per MD due to HD Nutritional Problem 1. Problem Problem Increased nutrient needs related to Etiology impaired skin integrity/ dialysis aeb Signs/Symptoms: Facial cellulitis and on HD Intervention/Recommendation Comments Consider modifying diet to 2gm sodium. Glucose/HG1AC low, no need for Diabetic restriction . Continue to monitor K and Phosphorus levels and need for Renal diet (not needed at this time.) Consider Prosource with meals for added protein due to cellulitis and HD. Expected Outcomes/Goals Expected Outcomes/Goals oral intake to meet >75% of nutrient needs, nutritino related labs normalize, weight stable.
[2018-02-28] MEDS: Ipratropium Neb 0.5 mg/2.5 mL UD HHN SCH ×4 (01:30→19:09)
[2018-02-28] MEDS: Albuterol/Ipratropium Neb 3 ML AERS HHN SCH ×6 (02:22→23:01)
[2018-02-28 06:46] LABS: ANION GAP 8.7 (7.0-16.0); CALCIUM SERUM 8.8 mg/dL (8.6-10.3); CARBON DIOXIDE 25.4 mEq/L (21.0-31.0); CREATININE - SERUM 3.5 mg/dL (0.7-1.3); GFR AFRICAN-AMERICAN 22.7 ml/min (>90); GFR NON AFRICAN-AMERICAN 18.8 ml/min; POTASSIUM SERUM 4.1 mEq/L (3.5-5.1)
[2018-02-28] MEDS: HYDROmorphone 2 mg/mL 1mL Vial IVP PRN ×2 (08:33→21:30)
--- NOTE | 2018-02-28 08:58 | Infectious Disease Prog Note ---
Infectious Disease Subjective - Review of Systems Service Date: 02/28/18 Subjective: Doing the same , no fever. Infectious Disease Objective - Results Result Diagrams: 02/27/18 06:20 02/28/18 05:35 Recent Labs: Laboratory Last Values WBC 10.7 Th/cmm (4.8-10.8) 02/27/18 06:20 RBC 3.41 Mil/cmm (3.80-5.80) L 02/27/18 06:20 Hgb 10.1 gm/dL (12-16) L 02/27/18 06:20 Hct 30.7 % (41.0-60) L 02/27/18 06:20 MCV 89.9 fl (80-99) 02/27/18 06:20 MCH 29.7 pg (27.0-31.0) 02/27/18 06:20 MCHC Differential 33.0 pg (28.0-36.0) 02/27/18 06:20 RDW 15.1 % (11.5-20.0) 02/27/18 06:20 Plt Count 346 Th/cmm (150-400) 02/27/18 06:20 MPV 6.3 fl 02/27/18 06:20 Neutrophils % 65.6 % (40.0-80.0) 02/27/18 06:20 Lymphocytes % 16.8 % (20.0-50.0) L 02/27/18 06:20 Monocytes % 7.5 % (2.0-10.0) 02/27/18 06:20 Eosinophils % 8.9 % (0.0-5.0) H 02/27/18 06:20 Basophils % 1.2 % (0.0-2.0) 02/27/18 06:20 ESR 87 mm/hr (0-20) H 01/31/18 04:15 PT 10.2 SECONDS (9.5-11.5) 02/20/18 09:40 INR 0.98 (0.5-1.4) 02/20/18 09:40 PTT (Actin FS) 30.6 SECONDS (26.0-38.0) 02/20/18 09:40 Sodium 136 mEq/L (136-145) 02/28/18 05:35 Potassium 4.1 mEq/L (3.5-5.1) 02/28/18 05:35 Chloride 106 mEq/L (98-107) 02/28/18 05:35 Carbon Dioxide 25.4 mEq/L (21.0-31.0) 02/28/18 05:35 Anion Gap 8.7 (7.0-16.0) 02/28/18 05:35 BUN 21 mg/dL (7-25) 02/28/18 05:35 Creatinine 3.5 mg/dL (0.7-1.3) H 02/28/18 05:35 Est GFR ( Amer) 22.7 ml/min (>90) 02/28/18 05:35 Est GFR (Non-Af Amer) 18.8 ml/min 02/28/18 05:35 BUN/Creatinine Ratio 6.0 02/28/18 05:35 Glucose 75 mg/dL (70-105) 02/28/18 05:35 POC Glucose 106 MG/DL (70 - 105) H 02/08/18 12:11 Hemoglobin A1c % 3.5 % (4.0-6.0) L 01/31/18 04:15 Whole Bld Lactic Acid 0.55 mmol/L (0.60-1.99) L 01/29/18 16:42 Calcium 8.8 mg/dL (8.6-10.3) 02/28/18 05:35 Phosphorus 4.1 mg/dL (2.5-5.0) 01/31/18 04:15 Magnesium 2.0 mg/dL (1.9-2.7) 02/26/18 04:30 Total Bilirubin 0.4 mg/dL (0.3-1.0) 02/23/18 04:45 AST 13 U/L (13-39) 02/23/18 04:45 ALT 6 U/L (7-52) L 02/23/18 04:45 Alkaline Phosphatase 59 U/L (34-104) 02/23/18 04:45 Creatine Kinase 12 U/L (30-223) L 01/29/18 16:42 Troponin I 0.02 ng/mL (0.01-0.05) 01/29/18 16:42 C-Reactive Protein 11.4 mg/dL (0.0-0.9) H 01/31/18 04:15 Total Protein 5.1 gm/dL (6.0-8.3) L 02/23/18 04:45 Albumin 2.1 gm/dL (4.2-5.5) L 02/23/18 04:45 Globulin 3.0 gm/dL 02/23/18 04:45 Albumin/Globulin Ratio 0.7 (1.0-1.8) L 02/23/18 04:45 Triglycerides 72 mg/dL (<150) 01/31/18 04:15 Cholesterol 97 mg/dL (<200) 01/31/18 04:15 LDL Cholesterol Direct 45 mg/dL (75-193) L 01/31/18 04:15 HDL Cholesterol 36 mg/dL (23-92) 01/31/18 04:15 TSH 2.15 uIU/ml (0.34-5.60) 01/31/18 04:15 PTH Intact 36 pg/mL (15-65) 02/01/18 05:22 Urine Source CLEAN C 02/17/18 16:59 Urine Color YELLOW 02/17/18 16:59 Urine Clarity HAZY (CLEAR) 02/17/18 16:59 Urine pH 8.5 (4.6 - 8.0) 02/17/18 16:59 Ur Specific [place] 1.020 (1.005-1.030) 02/17/18 16:59 Urine Protein >=300 mg/dL (NEGATIVE) 02/17/18 16:59 Urine Glucose (UA) 100 mg/dL (NEGATIVE) H 02/17/18 16:59 Urine Ketones NEGATIVE mg/dL (NEGATIVE) 02/17/18 16:59 Urine Blood LARGE (NEGATIVE) H 02/17/18 16:59 Urine Nitrate NEGATIVE (NEGATIVE) 02/17/18 16:59 Urine Bilirubin NEGATIVE (NEGATIVE) 02/17/18 16:59 Urine Urobilinogen 0.2 E.U./dL (0.2 - 1.0) 02/17/18 16:59 Ur Leukocyte Esterase SMALL (NEGATIVE) H 02/17/18 16:59 Urine RBC 25-50 /hpf (0-5) H 02/17/18 16:59 Urine WBC 6-10 /hpf (0-5) 02/17/18 16:59 Ur Epithelial Cells MODERATE /lpf (FEW) 05/26/18 16:59 Urine Bacteria FEW /hpf (NONE SEEN) 02/17/18 16:59 Fluid Source PLEURAL 02/01/18 11:00 Fluid Color PALE YELLOW 02/01/18 11:00 Fluid Appearance HAZY 02/01/18 11:00 Fluid WBC 149 /cumm 02/01/18 11:00 Fluid RBC 185 /cumm 02/01/18 11:00 Fluid Neutrophils 2 % 02/01/18 11:00 Fluid Lymphocytes 50 % 02/01/18 11:00 Fluid Monocytes 48 % 02/01/18 11:00 Fluid Glucose 75.0 mg/dL 02/01/18 11:00 Fluid Total Protein 2.3 g/dL 02/01/18 11:00 Fluid Amylase 61 U/L 02/01/18 11:00 Random Vancomycin 22.5 ug/mL (5.0-40.0) 02/04/18 05:52 Coccidioides Ab Negative (Neg:<1:2) 02/19/18 05:27 TB (QFT) Gold In Tube Negative (Negative) 02/18/18 19:50 TB Test (QFT) Mitogen 7.52 IU/mL 02/18/18 19:50 TB Test (QFT) Antigen 0.06 IU/mL 02/18/18 19:50 TB Test Antigen - Nil 0.00 IU/mL 02/18/18 19:50 TB Test TB - Nil 0.06 IU/mL 02/18/18 19:50 TB Test (QFT) Interp 02/18/18 19:50 Blood Type O POSITIVE 02/20/18 07:00 Antibody Screen NEGATIVE 02/20/18 07:00 - Physical Exam Vitals and I&O: Vital Signs Temp 97.0 F 02/28/18 07:49 Pulse 93 02/28/18 07:49 Resp 19 02/28/18 07:49 BP 128/72 02/28/18 07:49 Pulse Ox 98 02/28/18 07:49 Intake & Output 02/27/18 02/28/18 02/28/18 18:59 06:59 18:59 Output Total 10 Balance -10 Weight (lbs) 74.026 kg 72.15 kg Output: Chest Tube Drainage 10 Right Lower Anterior 10 Chest Other: # Bowel Movements 0 Weight Source Bedscale Bedscale Active Medications: Current Medications Acetaminophen (Tylenol) 650 mg PO Q6HR PRN PRN Reason: PAIN Stop: 03/30/18 23:07 Acetaminophen/Hydrocodone Bitart ([place] 5mg/325mg) 2 tab PO Q4H PRN PRN Reason: Pain (Moderate) Stop: 03/30/18 23:16 Last Admin: 02/18/18 22:42 Dose: 2 tab Al Hydrox/Mg Hydrox/Simethicone (Maalox) 30 ml PO Q4H PRN PRN Reason: Heartburn Stop: 04/17/18 22:02 Last Admin: 02/16/18 22:29 Dose: 30 ml Albuterol Sulfate (Albuterol 2.5mg/3ml Neb Ud) 2.5 mg HHN Q1H PRN PRN Reason: Respiratory Distress Stop: 03/31/18 07:59 Last Admin: 02/01/18 15:33 Dose: 2.5 mg Albuterol/Ipratropium (Duoneb Neb) 3 ml HHN Q4HRT [facility] Stop: 03/31/18 14:59 Last Admin: 02/28/18 07:34 Dose: 3 ml Atorvastatin Calcium (Lipitor) 40 mg PO HS [facility] Stop: 03/31/18 20:59 Last Admin: 02/27/18 22:04 Dose: Not Given Cinacalcet (Sensipar) 30 mg PO DAILY [facility] Stop: 03/31/18 08:59 Last Admin: 02/27/18 12:40 Dose: Not Given Diclofenac Sodium (Voltaren) 50 mg PO BID [facility] Stop: 04/01/18 08:59 Last Admin: 02/27/18 17:17 Dose: Not Given Docusate Sodium (Colace) 100 mg PO DAILY [facility] Stop: 03/31/18 08:59 Last Admin: 02/27/18 12:07 Dose: 100 mg Famotidine (Pepcid) 20 mg PO DAILY [facility] Stop: 04/18/18 08:59 Last Admin: 02/27/18 12:09 Dose: 20 mg Hydromorphone HCl (Dilaudid) 2 mg IVP Q4HR PRN PRN Reason: chest pain Stop: 04/21/18 13:55 Last Admin: 02/28/18 08:33 Dose: 2 mg Cefepime HCl 1 gm/ Dextrose 50 mls @ 100 mls/hr IV Q24H [facility] Stop: 04/26/18 10:59 Last Admin: 02/27/18 12:08 Dose: 100 mls/hr Ipratropium [place] (Atrovent Neb 0.5mg/2.5ml) 0.5 mg HHN Q6HRT [facility] Stop: 03/31/18 12:59 Last Admin: 02/28/18 01:30 Dose: Not Given Lactobacillus Rhamnosus (Culturelle 15b) 1 each PO DAILY [facility] Stop: 04/15/18 08:59 Last Admin: 02/27/18 12:09 Dose: 1 each Megestrol Acetate (Megace) 400 mg PO DAILY [facility]; Protocol Stop: 03/31/18 08:59 Last Admin: 02/27/18 12:10 Dose: Not Given Midodrine (Proamatine) 10 mg PO TID [facility] Stop: 04/16/18 00:29 Last Admin: 02/27/18 22:04 Dose: Not Given Mirtazapine (Remeron) 30 mg PO HS [facility]; Protocol Stop: 04/26/18 20:59 Last Admin: 02/27/18 22:04 Dose: Not Given Miscellaneous (Clinical Monitoring) 1 ea [facility] DAILY PRN PRN Reason: RENAL Stop: 04/08/18 08:30 Miscellaneous (Probiotic Screen) 1 [facility] PRN PRN PRN Reason: PROTOCOL Stop: 04/14/18 09:44 Sevelamer Carbonate (Renvela) 800 mg PO TID [facility] Stop: 03/30/18 23:14 Last Admin: 02/27/18 22:04 Dose: Not Given Vitamin B Complex/Vit C/Folic Acid (Vitamin B Complex W/Vitamin C) 1 tab PO DAILY [facility] Stop: 03/31/18 08:59 Last Admin: 02/27/18 12:10 Dose: 1 tab General: no acute distress, cachectic HEENT: atraumatic, normocephalic, PERRLA, EOMI Neck: supple, no thyromegaly Cardiovascular: S1S2, regular Lungs: clear to percussion, rhonchi, other (chest tubes on right, Decreased BS. ) Abdomen: soft, bowel sounds, no tender, no distended, no mass, no hepatomegaly Extremities: no cyanosis, no clubbing, no edema Neurological: awake, alert, oriented Skin: intact - Procedures Procedures: Procedures Procedure Code Date DRAINAGE OF R PLEURAL CAV WITH DRAIN DEV, PERC APPROACH [id number] 01/29/18 DRAINAGE OF RIGHT LOWER LUNG LOBE, ENDO, DIAGN [id number] 01/29/18 Infectious Disease Assmt/Plan - Problem List Patient Problems: All Active Problems RIGHT FACIAL SWELLING AND PAIN (Acute) - Assessment Assessment: 1. Pleural effusion with lymphocyte predominance. Empyema culture growing Pseudomonas. 2. Pseudomonas pneumonia. 3. Chronic kidney disease stage 5, on hemodialysis. 4. Diabetes mellitus type 2. 5. Chronic obstructive pulmonary disease. 6. Hyperlipidemia. 7. Urinary tract infection, treated. 8. Hyperlipidemia. 9. S/p VATS and pleurodesis. Chest tubes in place. - Plan Plan: Continue the same treatment. Check pleural fluid for adenosine deaminase. Nutritional Asmnt/Malnutr-PDOC - Dietary Evaluation Malnutrition Findings (Please click <Entered> for more info): Nutritional Asmnt/Malnutrition Start: 02/03/18 12: 10 Text: Status: Complete Freq: Protocol: Document 02/03/18 12:10 RICO (Rec: 02/03/18 12:31 [email or web address] VALERIO- [email or web address]) Nutritional Asmnt/Malnutrition Patient General Information Nutritional Screening Moderate Risk Diagnosis Rt facuial cellulitis, rt pleural effusion Pertinent Medical Hx/Surgical Hx ESRD on dialysis x 7 years, COPD, hyperlipidemia, Type 2 diabetes Subjective Information Per H&P, patient was on peritoneal dialysis up to a few months ago when he was diagnosed with peritonitis ( now on HD TTS). Per nursing notes, pt refusing some medications. Diet education not appropriate at this time. Current Diet Order/ Nutrition Support 60 gm CCHO, 1200 ml fluid restriction Patient / S.O Not Indicated Pertinent Medications lipitor, Sensipar, colace, lasix, Epogen, Megacem abx, Renvela, Vitamin B complex with C Pertinent Labs ((02/02) Cr 4.5, Ca 8.5, albumin 24 Nutritional Hx/Data Height 1.68 m Height (Calculated Centimeters) 167.6 Current Weight (lbs) 79.379 kg Weight (Calculated Kilograms) 79.4 Weight (Calculated Grams) 15274.7 [place] Body Weight 142 % [place] Body Weight 123 Body Mass Index (BMI) 28.2 Recent Weight Change No Weight Status Overweight GI Symptoms GI Symptoms None Last BM 02/02 x 1 Difficult in: None Food Allergies No Cultural/Ethnic/[place] Belief none indicated Usual diet at home unknown Skin Integrity/Comment: Ba 15, cellulitis facial Current %PO Good (75-100%) Estimated Nutritional Goals BEE in Kcals: Adj wt of IBW Calories/Kcals/Kg 27-32 kcal/kg using 68.2 kg Adj wt Kcals Calculated 4085-2748 kcal/day Protein: Adj wt of IBW Protein g/k.2-1.5 gm/kg (HD) Protein Calculated 80-100 gm/day Fluid: ml Per MD due to HD Nutritional Problem 1. Problem Problem Increased nutrient needs related to Etiology impaired skin integrity/ dialysis aeb Signs/Symptoms: Facial cellulitis and on HD Intervention/Recommendation Comments Consider modifying diet to 2gm sodium. Glucose/HG1AC low, no need for Diabetic restriction . Continue to monitor K and Phosphorus levels and need for Renal diet (not needed at this time.) Consider Prosource with meals for added protein due to cellulitis and HD. Expected Outcomes/Goals Expected Outcomes/Goals oral intake to meet >75% of nutrient needs, nutritino related labs normalize, weight stable.
--- NOTE | 2018-02-28 09:41 | Diagnostic Imaging Report ---
Portable chest x-ray HISTORY: Shortness of breath Compared to prior exam of February 26, 2018, the heart remains enlarged. Pleural reaction noted along the right hemithorax. No change in right chest tube position. IMPRESSION: 1. No change in the pulmonary status.
[2018-02-28] MEDS: Lactobacillus Rhamnosus GG 15 Billion CFU CAP.SPRINK PO SCH (11:10)
[2018-02-28] MEDS: Vitamin B Complex w/Vitamin C Tab PO SCH (11:10)
--- NOTE | 2018-02-28 11:45 | General Progress Note ---
Subjective - Review of Systems Service Date: 02/28/18 Subjective: alert, comfortable Objective - Results Result Diagrams: 02/27/18 06:20 02/28/18 05:35 Recent Labs: Laboratory Last Values WBC 10.7 Th/cmm (4.8-10.8) 02/27/18 06:20 RBC 3.41 Mil/cmm (3.80-5.80) L 02/27/18 06:20 Hgb 10.1 gm/dL (12-16) L 02/27/18 06:20 Hct 30.7 % (41.0-60) L 02/27/18 06:20 MCV 89.9 fl (80-99) 02/27/18 06:20 MCH 29.7 pg (27.0-31.0) 02/27/18 06:20 MCHC Differential 33.0 pg (28.0-36.0) 02/27/18 06:20 RDW 15.1 % (11.5-20.0) 02/27/18 06:20 Plt Count 346 Th/cmm (150-400) 02/27/18 06:20 MPV 6.3 fl 02/27/18 06:20 Neutrophils % 65.6 % (40.0-80.0) 02/27/18 06:20 Lymphocytes % 16.8 % (20.0-50.0) L 02/27/18 06:20 Monocytes % 7.5 % (2.0-10.0) 02/27/18 06:20 Eosinophils % 8.9 % (0.0-5.0) H 02/27/18 06:20 Basophils % 1.2 % (0.0-2.0) 02/27/18 06:20 ESR 87 mm/hr (0-20) H 01/31/18 04:15 PT 10.2 SECONDS (9.5-11.5) 02/20/18 09:40 INR 0.98 (0.5-1.4) 02/20/18 09:40 PTT (Actin FS) 30.6 SECONDS (26.0-38.0) 02/20/18 09:40 Sodium 136 mEq/L (136-145) 02/28/18 05:35 Potassium 4.1 mEq/L (3.5-5.1) 02/28/18 05:35 Chloride 106 mEq/L (98-107) 02/28/18 05:35 Carbon Dioxide 25.4 mEq/L (21.0-31.0) 02/28/18 05:35 Anion Gap 8.7 (7.0-16.0) 02/28/18 05:35 BUN 21 mg/dL (7-25) 02/28/18 05:35 Creatinine 3.5 mg/dL (0.7-1.3) H 02/28/18 05:35 Est GFR ( Amer) 22.7 ml/min (>90) 02/28/18 05:35 Est GFR (Non-Af Amer) 18.8 ml/min 02/28/18 05:35 BUN/Creatinine Ratio 6.0 02/28/18 05:35 Glucose 75 mg/dL (70-105) 02/28/18 05:35 POC Glucose 106 MG/DL (70 - 105) H 02/08/18 12:11 Hemoglobin A1c % 3.5 % (4.0-6.0) L 01/31/18 04:15 Whole Bld Lactic Acid 0.55 mmol/L (0.60-1.99) L 01/29/18 16:42 Calcium 8.8 mg/dL (8.6-10.3) 02/28/18 05:35 Phosphorus 4.1 mg/dL (2.5-5.0) 01/31/18 04:15 Magnesium 2.0 mg/dL (1.9-2.7) 02/26/18 04:30 Total Bilirubin 0.4 mg/dL (0.3-1.0) 02/23/18 04:45 AST 13 U/L (13-39) 02/23/18 04:45 ALT 6 U/L (7-52) L 02/23/18 04:45 Alkaline Phosphatase 59 U/L (34-104) 02/23/18 04:45 Creatine Kinase 12 U/L (30-223) L 01/29/18 16:42 Troponin I 0.02 ng/mL (0.01-0.05) 01/29/18 16:42 C-Reactive Protein 11.4 mg/dL (0.0-0.9) H 01/31/18 04:15 Total Protein 5.1 gm/dL (6.0-8.3) L 02/23/18 04:45 Albumin 2.1 gm/dL (4.2-5.5) L 02/23/18 04:45 Globulin 3.0 gm/dL 02/23/18 04:45 Albumin/Globulin Ratio 0.7 (1.0-1.8) L 02/23/18 04:45 Triglycerides 72 mg/dL (<150) 01/31/18 04:15 Cholesterol 97 mg/dL (<200) 01/31/18 04:15 LDL Cholesterol Direct 45 mg/dL (75-193) L 01/31/18 04:15 HDL Cholesterol 36 mg/dL (23-92) 01/31/18 04:15 TSH 2.15 uIU/ml (0.34-5.60) 01/31/18 04:15 PTH Intact 36 pg/mL (15-65) 02/01/18 05:22 Urine Source CLEAN C 02/17/18 16:59 Urine Color YELLOW 02/17/18 16:59 Urine Clarity HAZY (CLEAR) 02/17/18 16:59 Urine pH 8.5 (4.6 - 8.0) 02/17/18 16:59 Ur Specific [place] 1.020 (1.005-1.030) 02/17/18 16:59 Urine Protein >=300 mg/dL (NEGATIVE) 02/17/18 16:59 Urine Glucose (UA) 100 mg/dL (NEGATIVE) H 02/17/18 16:59 Urine Ketones NEGATIVE mg/dL (NEGATIVE) 02/17/18 16:59 Urine Blood LARGE (NEGATIVE) H 02/17/18 16:59 Urine Nitrate NEGATIVE (NEGATIVE) 02/17/18 16:59 Urine Bilirubin NEGATIVE (NEGATIVE) 02/17/18 16:59 Urine Urobilinogen 0.2 E.U./dL (0.2 - 1.0) 02/17/18 16:59 Ur Leukocyte Esterase SMALL (NEGATIVE) H 02/17/18 16:59 Urine RBC 25-50 /hpf (0-5) H 02/17/18 16:59 Urine WBC 6-10 /hpf (0-5) 02/17/18 16:59 Ur Epithelial Cells MODERATE /lpf (FEW) 02/17/18 16:59 Urine Bacteria FEW /hpf (NONE SEEN) 02/17/18 16:59 Fluid Source PLEURAL 02/01/18 11:00 Fluid Color PALE YELLOW 02/01/18 11:00 Fluid Appearance HAZY 02/01/18 11:00 Fluid WBC 149 /cumm 02/01/18 11:00 Fluid RBC 185 /cumm 02/01/18 11:00 Fluid Neutrophils 2 % 02/01/18 11:00 Fluid Lymphocytes 50 % 02/01/18 11:00 Fluid Monocytes 48 % 02/01/18 11:00 Fluid Glucose 75.0 mg/dL 02/01/18 11:00 Fluid Total Protein 2.3 g/dL 02/01/18 11:00 Fluid Amylase 61 U/L 02/01/18 11:00 Random Vancomycin 22.5 ug/mL (5.0-40.0) 02/04/18 05:52 Coccidioides Ab Negative (Neg:<1:2) 02/19/18 05:27 TB (QFT) Gold In Tube Negative (Negative) 02/18/18 19:50 TB Test (QFT) Mitogen 7.52 IU/mL 02/18/18 19:50 TB Test (QFT) Antigen 0.06 IU/mL 02/18/18 19:50 TB Test Antigen - Nil 0.00 IU/mL 02/18/18 19:50 TB Test TB - Nil 0.06 IU/mL 02/18/18 19:50 TB Test (QFT) Interp 02/18/18 19:50 Blood Type O POSITIVE 02/20/18 07:00 Antibody Screen NEGATIVE 02/20/18 07:00 - Physical Exam Vitals and I&O: Vital Signs Temp 97.0 F 02/28/18 07:49 Pulse 93 02/28/18 07:49 Resp 18 02/28/18 10:11 BP 128/72 02/28/18 07:49 Pulse Ox 98 02/28/18 07:49 Intake & Output 02/27/18 02/28/18 02/28/18 18:59 06:59 18:59 Intake Total 50 6.667 Output Total 10 Balance 50 -10 6.667 Weight (lbs) 74.026 kg 72.15 kg Intake: Intake, IV Amount 50 6.667 Cefepime 1 gm In Dextrose 50 6.667 5% 50 ml @ 100 mls/hr IV Q24H [facility] Rx#:[id number] Output: Chest Tube Drainage 10 Right Lower Anterior 10 Chest Other: # Bowel Movements 0 Weight Source Bedscale Bedscale Active Medications: Current Medications Acetaminophen (Tylenol) 650 mg PO Q6HR PRN PRN Reason: PAIN Stop: 03/30/18 23:07 Acetaminophen/Hydrocodone Bitart ([place] 5mg/325mg) 2 tab PO Q4H PRN PRN Reason: Pain (Moderate) Stop: 03/30/18 23:16 Last Admin: 02/18/18 22:42 Dose: 2 tab Al Hydrox/Mg Hydrox/Simethicone (Maalox) 30 ml PO Q4H PRN PRN Reason: Heartburn Stop: 04/17/18 22:02 Last Admin: 02/16/18 22:29 Dose: 30 ml Albuterol Sulfate (Albuterol 2.5mg/3ml Neb Ud) 2.5 mg HHN Q1H PRN PRN Reason: Respiratory Distress Stop: 03/31/18 07:59 Last Admin: 02/01/18 15:33 Dose: 2.5 mg Albuterol/Ipratropium (Duoneb Neb) 3 ml HHN Q4HRT [facility] Stop: 03/31/18 14:59 Last Admin: 02/28/18 10:35 Dose: Not Given Atorvastatin Calcium (Lipitor) 40 mg PO HS [facility] Stop: 03/31/18 20:59 Last Admin: 02/27/18 22:04 Dose: Not Given Cinacalcet (Sensipar) 30 mg PO DAILY [facility] Stop: 03/31/18 08:59 Last Admin: 02/28/18 10:08 Dose: Not Given Diclofenac Sodium (Voltaren) 50 mg PO BID [facility] Stop: 04/01/18 08:59 Last Admin: 02/28/18 11:10 Dose: Not Given Docusate Sodium (Colace) 100 mg PO DAILY [facility] Stop: 03/31/18 08:59 Last Admin: 02/28/18 11:10 Dose: Not Given Famotidine (Pepcid) 20 mg PO DAILY [facility] Stop: 04/18/18 08:59 Last Admin: 02/28/18 11:10 Dose: Not Given Hydromorphone HCl (Dilaudid) 2 mg IVP Q4HR PRN PRN Reason: chest pain Stop: 04/21/18 13:55 Last Admin: 02/28/18 08:33 Dose: 2 mg Cefepime HCl 1 gm/ Dextrose 50 mls @ 100 mls/hr IV Q24H [facility] Stop: 04/26/18 10:59 Last Infusion: 02/28/18 11:11 Dose: 0 mls/hr Ipratropium [place] (Atrovent Neb 0.5mg/2.5ml) 0.5 mg HHN Q6HRT [facility] Stop: 03/31/18 12:59 Last Admin: 02/28/18 07:00 Dose: Not Given Lactobacillus Rhamnosus (Culturelle 15b) 1 each PO DAILY [facility] Stop: 04/15/18 08:59 Last Admin: 02/28/18 11:10 Dose: Not Given Megestrol Acetate (Megace) 400 mg PO DAILY [facility]; Protocol Stop: 03/31/18 08:59 Last Admin: 02/28/18 10:08 Dose: Not Given Midodrine (Proamatine) 10 mg PO TID [facility] Stop: 04/16/18 00:29 Last Admin: 02/28/18 10:09 Dose: Not Given Mirtazapine (Remeron) 30 mg PO HS [facility]; Protocol Stop: 04/26/18 20:59 Last Admin: 02/27/18 22:04 Dose: Not Given Miscellaneous (Clinical Monitoring) 1 ea DAILY PRN PRN Reason: RENAL Stop: 04/08/18 08:30 Miscellaneous (Probiotic Screen) 1 [facility] PRN PRN PRN Reason: PROTOCOL Stop: 04/14/18 09:44 Sevelamer Carbonate (Renvela) 800 mg PO TID [facility] Stop: 03/30/18 23:14 Last Admin: 02/28/18 10:08 Dose: Not Given Vitamin B Complex/Vit C/Folic Acid (Vitamin B Complex W/Vitamin C) 1 tab PO DAILY [facility] Stop: 03/31/18 08:59 Last Admin: 02/28/18 11:10 Dose: Not Given General: Alert, Oriented x3, Cooperative, No acute distress HEENT: Atraumatic, PERRLA, EOMI, Mucous membr. moist/pink Neck: Supple, +2 carotid pulse wo bruit Cardiovascular: Regular rate, Normal S1, Normal S2 Lungs: Other (increased BS right lung field, (+) chest tube) Abdomen: Bowel sounds, Soft Extremities: no Edema Neurological: Sensation intact Skin: no Rash Psych/Mental Status: Mood NL - Procedures Procedures: Procedures Procedure Code Date DRAINAGE OF R PLEURAL CAV WITH DRAIN DEV, PERC APPROACH [id number] 01/29/18 DRAINAGE OF RIGHT LOWER LUNG LOBE, ENDO, DIAGN [id number] 01/29/18 Assessment/Plan - Problem List Patient Problems: All Active Problems RIGHT FACIAL SWELLING AND PAIN (Acute) - Assessment Assessment: ESRD on HD Right facial cellulitis Right lung opacification 2/2 effusion Cx UTI T2DM Anemia of CKD right PTX s/p chest tube S/P right lung surgery - Plan Plan: Lab - Result Diagrams 01/31/18 04:15 01/31/18 04:15 Current Medications Acetaminophen (Tylenol) 650 mg PO Q6HR PRN PRN Reason: PAIN Stop: 03/30/18 23:07 Acetaminophen/Hydrocodone Bitart ([place] 5mg/325mg) 2 tab PO Q4H PRN PRN Reason: Pain (Moderate) Stop: 03/30/18 23:16 Last Admin: 01/29/18 23:29 Dose: 2 tab Acetylcysteine (Mucomyst 20%) 2 ml HHN Q4HRT [facility] Stop: 03/31/18 14:59 Last Admin: 01/31/18 11:27 Dose: 2 ml Albuterol Sulfate (Albuterol 2.5mg/3ml Neb Ud) 2.5 mg HHN Q1H PRN PRN Reason: Respiratory Distress Stop: 03/31/18 07:59 Albuterol/Ipratropium (Duoneb Neb) 3 ml HHN Q4HRT [facility] Stop: 03/31/18 14:59 Last Admin: 01/31/18 11:27 Dose: 3 ml Atorvastatin Calcium (Lipitor) 40 mg PO HS [facility] Stop: 03/31/18 20:59 Last Admin: 01/30/18 21:19 Dose: 40 mg Cinacalcet (Sensipar) 30 mg PO DAILY [facility] Stop: 03/31/18 08:59 Last Admin: 01/31/18 08:28 Dose: Not Given Diclofenac Sodium (Voltaren) 50 mg PO BID [facility] Stop: 04/01/18 08:59 Last Admin: 01/31/18 08:25 Dose: 50 mg Docusate Sodium (Colace) 100 mg PO DAILY [facility] Stop: 03/31/18 08:59 Last Admin: 01/31/18 08:26 Dose: 100 mg Epoetin Vishal (Epogen) 10,000 units SUBQ MWF@1600 [facility] Stop: 04/01/18 15:59 Furosemide (Lasix) 40 mg PO DAILY [facility] Stop: 03/31/18 08:59 Last Admin: 01/31/18 08:26 Dose: 40 mg Heparin Sodium (Porcine) (Heparin) 5,000 units IVP ONCE@2100 [facility] Stop: 01/31/18 21:01 Last Admin: 01/30/18 21:18 Dose: 5,000 units Ceftriaxone Sodium 1 gm/ (Sodium Chloride) 50 mls @ 100 mls/hr IV Q24HR [facility] Stop: 03/31/18 18:59 Last Infusion: 01/30/18 21:50 Dose: Infused Ipratropium [place] (Atrovent Neb 0.5mg/2.5ml) 0.5 mg HHN Q6HRT [facility] Stop: 03/31/18 12:59 Last Admin: 01/31/18 00:57 Dose: Not Given Lactobacillus Rhamnosus (Culturelle 15b) 1 each PO DAILY [facility] Stop: 03/30/18 23:14 Last Admin: 01/31/18 08:27 Dose: 1 each Megestrol Acetate (Megace) 400 mg PO DAILY [facility] PRN Reason: Protocol Stop: 03/31/18 08:59 Last Admin: 01/31/18 09:31 Dose: Not Given Metoprolol Tartrate (Lopressor) 50 mg PO BID [facility] Stop: 03/30/18 23:14 Last Admin: 01/31/18 08:27 Dose: 50 mg Midodrine (Proamatine) 5 mg PO TID PRN PRN Reason: HYPOTENSION Stop: 03/30/18 23:07 Miscellaneous (Vancomycin Iv Per Pharmacy) 1 ea MC PRN [facility] Stop: 03/30/18 21:44 Morphine Sulfate (Morphine) 1 mg IVP Q4HR PRN PRN Reason: Pain (Severe) Stop: 03/30/18 23:17 Last Admin: 01/31/18 08:17 Dose: 1 mg Sevelamer Carbonate (Renvela) 800 mg PO TID [facility] Stop: 03/30/18 23:14 Last Admin: 01/31/18 08:28 Dose: 800 mg Vitamin B Complex/Vit C/Folic Acid (Vitamin B Complex W/Vitamin C) 1 tab PO DAILY [facility] Stop: 03/31/18 08:59 Lab - Result Diagrams 02/27/18 06:20 02/28/18 05:35 continue Rocephin WBC down to 10.7 bronchoscopy: no endobronchial lesion CXR: persistent right effusion, PNA surgery revealed trapped lung CT drain 30 ml overnite Dialysis in am Nutritional Asmnt/Malnutr-PDOC - Dietary Evaluation Malnutrition Findings (Please click <Entered> for more info): Nutritional Asmnt/Malnutrition Start: 02/03/18 12: 10 Text: Status: Complete Freq: Protocol: Document 02/03/18 12:10 RICO (Rec: 02/03/18 12:31 [email or web address] [email or web address]) Nutritional Asmnt/Malnutrition Patient General Information Nutritional Screening Moderate Risk Diagnosis Rt facuial cellulitis, rt pleural effusion Pertinent Medical Hx/Surgical Hx ESRD on dialysis x 7 years, COPD, hyperlipidemia, Type 2 diabetes Subjective Information Per H&P, patient was on peritoneal dialysis up to a few months ago when he was diagnosed with peritonitis ( now on HD TTS). Per nursing notes, pt refusing some medications. Diet education not appropriate at this time. Current Diet Order/ Nutrition Support 60 gm CCHO, 1200 ml fluid restriction Patient / S.O Not Indicated Pertinent Medications lipitor, Sensipar, colace, lasix, Epogen, [place] abx, Renvela, Vitamin B complex with C Pertinent Labs ((02/02) Cr 4.5, Ca 8.5, albumin 24 Nutritional Hx/Data Height 1.68 m Height (Calculated Centimeters) 167.6 Current Weight (lbs) 79.379 kg Weight (Calculated Kilograms) 79.4 Weight (Calculated Grams) 20140.7 [place] Body Weight 142 % [place] Body Weight 123 Body Mass Index (BMI) 28.2 Recent Weight Change No Weight Status Overweight GI Symptoms GI Symptoms None Last BM 02/02 x 1 Difficult in: None Food Allergies No Cultural/Ethnic/Faith Belief none indicated Usual diet at home unknown Skin Integrity/Comment: Ba 15, cellulitis facial Current %PO Good (75-100%) Estimated Nutritional Goals BEE in Kcals: Adj wt of IBW Calories/Kcals/Kg 27-32 kcal/kg using 68.2 kg Adj wt Kcals Calculated 8703-8493 kcal/day Protein: Adj wt of IBW Protein g/k.2-1.5 gm/kg (HD) Protein Calculated 80-100 gm/day Fluid: ml Per MD due to HD Nutritional Problem 1. Problem Problem Increased nutrient needs related to Etiology impaired skin integrity/ dialysis aeb Signs/Symptoms: Facial cellulitis and on HD Intervention/Recommendation Comments Consider modifying diet to 2gm sodium. Glucose/HG1AC low, no need for Diabetic restriction . Continue to monitor K and Phosphorus levels and need for Renal diet (not needed at this time.) Consider Prosource with meals for added protein due to cellulitis and HD. Expected Outcomes/Goals Expected Outcomes/Goals oral intake to meet >75% of nutrient needs, nutritino related labs normalize, weight stable.
--- NOTE | 2018-02-28 14:29 | General Progress Note ---
Subjective - Review of Systems Service Date: 02/28/18 Events since last encounter: chest tube out xray in AM Objective - Results Result Diagrams: 02/27/18 06:20 02/28/18 05:35 Recent Labs: Laboratory Last Values WBC 10.7 Th/cmm (4.8-10.8) 02/27/18 06:20 RBC 3.41 Mil/cmm (3.80-5.80) L 02/27/18 06:20 Hgb 10.1 gm/dL (12-16) L 02/27/18 06:20 Hct 30.7 % (41.0-60) L 02/27/18 06:20 MCV 89.9 fl (80-99) 02/27/18 06:20 MCH 29.7 pg (27.0-31.0) 02/27/18 06:20 MCHC Differential 33.0 pg (28.0-36.0) 02/27/18 06:20 RDW 15.1 % (11.5-20.0) 02/27/18 06:20 Plt Count 346 Th/cmm (150-400) 02/27/18 06:20 MPV 6.3 fl 02/27/18 06:20 Neutrophils % 65.6 % (40.0-80.0) 02/27/18 06:20 Lymphocytes % 16.8 % (20.0-50.0) L 02/27/18 06:20 Monocytes % 7.5 % (2.0-10.0) 02/27/18 06:20 Eosinophils % 8.9 % (0.0-5.0) H 02/27/18 06:20 Basophils % 1.2 % (0.0-2.0) 02/27/18 06:20 ESR 87 mm/hr (0-20) H 01/31/18 04:15 PT 10.2 SECONDS (9.5-11.5) 02/20/18 09:40 INR 0.98 (0.5-1.4) 02/20/18 09:40 PTT (Actin FS) 30.6 SECONDS (26.0-38.0) 02/20/18 09:40 Sodium 136 mEq/L (136-145) 02/28/18 05:35 Potassium 4.1 mEq/L (3.5-5.1) 02/28/18 05:35 Chloride 106 mEq/L (98-107) 02/28/18 05:35 Carbon Dioxide 25.4 mEq/L (21.0-31.0) 02/28/18 05:35 Anion Gap 8.7 (7.0-16.0) 02/28/18 05:35 BUN 21 mg/dL (7-25) 02/28/18 05:35 Creatinine 3.5 mg/dL (0.7-1.3) H 02/28/18 05:35 Est GFR ( Amer) 22.7 ml/min (>90) 02/28/18 05:35 Est GFR (Non-Af Amer) 18.8 ml/min 02/28/18 05:35 BUN/Creatinine Ratio 6.0 02/28/18 05:35 Glucose 75 mg/dL (70-105) 02/28/18 05:35 POC Glucose 106 MG/DL (70 - 105) H 02/08/18 12:11 Hemoglobin A1c % 3.5 % (4.0-6.0) L 01/31/18 04:15 Whole Bld Lactic Acid 0.55 mmol/L (0.60-1.99) L 01/29/18 16:42 Calcium 8.8 mg/dL (8.6-10.3) 02/28/18 05:35 Phosphorus 4.1 mg/dL (2.5-5.0) 01/31/18 04:15 Magnesium 2.0 mg/dL (1.9-2.7) 02/26/18 04:30 Total Bilirubin 0.4 mg/dL (0.3-1.0) 02/23/18 04:45 AST 13 U/L (13-39) 02/23/18 04:45 ALT 6 U/L (7-52) L 02/23/18 04:45 Alkaline Phosphatase 59 U/L (34-104) 02/23/18 04:45 Creatine Kinase 12 U/L (30-223) L 01/29/18 16:42 Troponin I 0.02 ng/mL (0.01-0.05) 01/29/18 16:42 C-Reactive Protein 11.4 mg/dL (0.0-0.9) H 01/31/18 04:15 Total Protein 5.1 gm/dL (6.0-8.3) L 02/23/18 04:45 Albumin 2.1 gm/dL (4.2-5.5) L 02/23/18 04:45 Globulin 3.0 gm/dL 02/23/18 04:45 Albumin/Globulin Ratio 0.7 (1.0-1.8) L 02/23/18 04:45 Triglycerides 72 mg/dL (<150) 01/31/18 04:15 Cholesterol 97 mg/dL (<200) 01/31/18 04:15 LDL Cholesterol Direct 45 mg/dL (75-193) L 01/31/18 04:15 HDL Cholesterol 36 mg/dL (23-92) 01/31/18 04:15 TSH 2.15 uIU/ml (0.34-5.60) 01/31/18 04:15 PTH Intact 36 pg/mL (15-65) 02/01/18 05:22 Urine Source CLEAN C 02/17/18 16:59 Urine Color YELLOW 02/17/18 16:59 Urine Clarity HAZY (CLEAR) 02/17/18 16:59 Urine pH 8.5 (4.6 - 8.0) 02/17/18 16:59 Ur Specific [place] 1.020 (1.005-1.030) 02/17/18 16:59 Urine Protein >=300 mg/dL (NEGATIVE) 02/17/18 16:59 Urine Glucose (UA) 100 mg/dL (NEGATIVE) H 02/17/18 16:59 Urine Ketones NEGATIVE mg/dL (NEGATIVE) 02/17/18 16:59 Urine Blood LARGE (NEGATIVE) H 02/17/18 16:59 Urine Nitrate NEGATIVE (NEGATIVE) 02/17/18 16:59 Urine Bilirubin NEGATIVE (NEGATIVE) 02/17/18 16:59 Urine Urobilinogen 0.2 E.U./dL (0.2 - 1.0) 02/17/18 16:59 Ur Leukocyte Esterase SMALL (NEGATIVE) H 02/17/18 16:59 Urine RBC 25-50 /hpf (0-5) H 02/17/18 16:59 Urine WBC 6-10 /hpf (0-5) 02/17/18 16:59 Ur Epithelial Cells MODERATE /lpf (FEW) 02/17/18 16:59 Urine Bacteria FEW /hpf (NONE SEEN) 02/17/18 16:59 Fluid Source PLEURAL 02/01/18 11:00 Fluid Color PALE YELLOW 02/01/18 11:00 Fluid Appearance HAZY 02/01/18 11:00 Fluid WBC 149 /cumm 02/01/18 11:00 Fluid RBC 185 /cumm 02/01/18 11:00 Fluid Neutrophils 2 % 02/01/18 11:00 Fluid Lymphocytes 50 % 02/01/18 11:00 Fluid Monocytes 48 % 02/01/18 11:00 Fluid Glucose 75.0 mg/dL 02/01/18 11:00 Fluid Total Protein 2.3 g/dL 02/01/18 11:00 Fluid Amylase 61 U/L 02/01/18 11:00 Random Vancomycin 22.5 ug/mL (5.0-40.0) 02/04/18 05:52 Coccidioides Ab Negative (Neg:<1:2) 02/19/18 05:27 TB (QFT) Gold In Tube Negative (Negative) 02/18/18 19:50 TB Test (QFT) Mitogen 7.52 IU/mL 02/18/18 19:50 TB Test (QFT) Antigen 0.06 IU/mL 02/18/18 19:50 TB Test Antigen - Nil 0.00 IU/mL 02/18/18 19:50 TB Test TB - Nil 0.06 IU/mL 02/18/18 19:50 TB Test (QFT) Interp 02/18/18 19:50 Blood Type O POSITIVE 02/20/18 07:00 Antibody Screen NEGATIVE 02/20/18 07:00 - Physical Exam Vitals and I&O: Vital Signs Temp 97.1 F 02/28/18 12:00 Pulse 90 02/28/18 14:10 Resp 18 02/28/18 14:10 BP 130/68 02/28/18 12:00 Pulse Ox 99 02/28/18 14:10 Intake & Output 02/27/18 02/28/18 02/28/18 18:59 06:59 18:59 Intake Total 50 6.667 Output Total 10 Balance 50 -10 6.667 Weight (lbs) 74.026 kg 72.15 kg Intake: Intake, IV Amount 50 6.667 Cefepime 1 gm In Dextrose 50 6.667 5% 50 ml @ 100 mls/hr IV Q24H [facility] Rx#:[id number] Output: Chest Tube Drainage 10 Right Lower Anterior 10 Chest Other: # Bowel Movements 0 Weight Source Bedscale Bedscale Active Medications: Current Medications Acetaminophen (Tylenol) 650 mg PO Q6HR PRN PRN Reason: PAIN Stop: 03/30/18 23:07 Acetaminophen/Hydrocodone Bitart ([place] 5mg/325mg) 2 tab PO Q4H PRN PRN Reason: Pain (Moderate) Stop: 03/30/18 23:16 Last Admin: 02/18/18 22:42 Dose: 2 tab Al Hydrox/Mg Hydrox/Simethicone (Maalox) 30 ml PO Q4H PRN PRN Reason: Heartburn Stop: 04/17/18 22:02 Last Admin: 02/16/18 22:29 Dose: 30 ml Albuterol Sulfate (Albuterol 2.5mg/3ml Neb Ud) 2.5 mg HHN Q1H PRN PRN Reason: Respiratory Distress Stop: 03/31/18 07:59 Last Admin: 02/01/18 15:33 Dose: 2.5 mg Albuterol/Ipratropium (Duoneb Neb) [address] [facility] Stop: 03/31/18 14:59 Last Admin: 02/28/18 14:10 Dose: 3 ml Atorvastatin Calcium (Lipitor) [address] [facility] Stop: 03/31/18 20:59 Last Admin: 02/27/18 22:04 Dose: Not Given Cinacalcet (Sensipar) [address] [facility] Stop: 03/31/18 08:59 Last Admin: 02/28/18 10:08 Dose: Not Given Diclofenac Sodium (Voltaren) [address] [facility] Stop: 04/01/18 08:59 Last Admin: 02/28/18 11:10 Dose: Not Given Docusate Sodium (Colace) [address] [facility] Stop: 03/31/18 08:59 Last Admin: 02/28/18 11:10 Dose: Not Given Famotidine (Pepcid) [address] [facility] Stop: 04/18/18 08:59 Last Admin: 02/28/18 11:10 Dose: Not Given Hydromorphone HCl (Dilaudid) 2 mg IVP Q4HR PRN PRN Reason: chest pain Stop: 04/21/18 13:55 Last Admin: 02/28/18 08:33 Dose: 2 mg Cefepime HCl 1 gm/ Dextrose 50 mls @ 100 mls/hr IV Q24H [facility] Stop: 04/26/18 10:59 Last Infusion: 02/28/18 14:01 Dose: 100 mls/hr Ipratropium [place] (Atrovent Neb 0.5mg/2.5ml) 0.5 mg HHN Q6HRT [facility] Stop: 03/31/18 12:59 Last Admin: 02/28/18 13:00 Dose: Not Given Lactobacillus Rhamnosus (Culturelle 15b) [address] [facility] Stop: 04/15/18 08:59 Last Admin: 02/28/18 11:10 Dose: Not Given Megestrol Acetate (Megace) [address] [facility]; Protocol Stop: 03/31/18 08:59 Last Admin: 02/28/18 10:08 Dose: Not Given Midodrine (Proamatine) [address] [facility] Stop: 04/16/18 00:29 Last Admin: 02/28/18 14:02 Dose: Not Given Mirtazapine (Remeron) [address] [facility]; Protocol Stop: 04/26/18 20:59 Last Admin: 02/27/18 22:04 Dose: Not Given Miscellaneous (Clinical Monitoring) 1 ea [facility] DAILY PRN PRN Reason: RENAL Stop: 04/08/18 08:30 Miscellaneous (Probiotic Screen) 1 [facility] PRN PRN PRN Reason: PROTOCOL Stop: 04/14/18 09:44 Sevelamer Carbonate (Renvela) [address] [facility] Stop: 03/30/18 23:14 Last Admin: 02/28/18 14:02 Dose: Not Given Vitamin B Complex/Vit C/Folic Acid (Vitamin B Complex W/Vitamin C) [address] [facility] Stop: 03/31/18 08:59 Last Admin: 02/28/18 11:10 Dose: Not Given General: Alert, Oriented x3, Cooperative, No acute distress HEENT: Atraumatic, PERRLA, EOMI, Mucous membr. moist/pink Neck: Supple, +2 carotid pulse wo bruit Cardiovascular: Regular rate, Normal S1, Normal S2 Lungs: Other (increased BS right lung field, (+) chest tube) Abdomen: Bowel sounds, Soft Extremities: no Edema Neurological: Sensation intact Skin: no Rash Psych/Mental Status: Mood NL - Procedures Procedures: Procedures Procedure Code Date DRAINAGE OF R PLEURAL CAV WITH DRAIN DEV, PERC APPROACH [id number] 01/29/18 DRAINAGE OF RIGHT LOWER LUNG LOBE, ENDO, DIAGN [id number] 01/29/18 Assessment/Plan - Problem List Patient Problems: All Active Problems RIGHT FACIAL SWELLING AND PAIN (Acute) Nutritional Asmnt/Malnutr-PDOC - Dietary Evaluation Malnutrition Findings (Please click <Entered> for more info): Nutritional Asmnt/Malnutrition Start: 02/03/18 12: 10 Text: Status: Complete Freq: Protocol: Document 02/03/18 12:10 MMULHERN (Rec: 02/03/18 12:31 MMULRAUL VALERIO- [email or web address]) Nutritional Asmnt/Malnutrition Patient General Information Nutritional Screening Moderate Risk Diagnosis Rt facuial cellulitis, rt pleural effusion Pertinent Medical Hx/Surgical Hx ESRD on dialysis x 7 years, COPD, hyperlipidemia, Type 2 diabetes Subjective Information Per H&P, patient was on peritoneal dialysis up to a few months ago when he was diagnosed with peritonitis ( now on HD TTS). Per nursing notes, pt refusing some medications. Diet education not appropriate at this time. Current Diet Order/ Nutrition Support 60 gm CCHO, 1200 ml fluid restriction Patient / S.O Not Indicated Pertinent Medications lipitor, Sensipar, colace, lasix, Epogen, Megacem abx, Renvela, Vitamin B complex with C Pertinent Labs ((02/02) Cr 4.5, Ca 8.5, albumin 24 Nutritional Hx/Data Height 1.68 m Height (Calculated Centimeters) 167.6 Current Weight (lbs) 79.379 kg Weight (Calculated Kilograms) 79.4 Weight (Calculated Grams) 19253.7 [place] Body Weight 142 % [place] Body Weight 123 Body Mass Index (BMI) 28.2 Recent Weight Change No Weight Status Overweight GI Symptoms GI Symptoms None Last BM 02/02 x 1 Difficult in: None Food Allergies No Cultural/Ethnic/Moravian Belief none indicated Usual diet at home unknown Skin Integrity/Comment: Ba 15, cellulitis facial Current %PO Good (75-100%) Estimated Nutritional Goals BEE in Kcals: Adj wt of IBW Calories/Kcals/Kg 27-32 kcal/kg using 68.2 kg Adj wt Kcals Calculated 9742-7881 kcal/day Protein: Adj wt of IBW Protein g/k.2-1.5 gm/kg (HD) Protein Calculated 80-100 gm/day Fluid: ml Per MD due to HD Nutritional Problem 1. Problem Problem Increased nutrient needs related to Etiology impaired skin integrity/ dialysis aeb Signs/Symptoms: Facial cellulitis and on HD Intervention/Recommendation Comments Consider modifying diet to 2gm sodium. Glucose/HG1AC low, no need for Diabetic restriction . Continue to monitor K and Phosphorus levels and need for Renal diet (not needed at this time.) Consider Prosource with meals for added protein due to cellulitis and HD. Expected Outcomes/Goals Expected Outcomes/Goals oral intake to meet >75% of nutrient needs, nutritino related labs normalize, weight stable.
[2018-03-01] MEDS: Ipratropium Neb 0.5 mg/2.5 mL UD HHN SCH ×2 (00:10→07:31)
[2018-03-01] MEDS: Albuterol/Ipratropium Neb 3 ML AERS HHN SCH ×6 (03:05→23:45)
--- NOTE | 2018-03-01 08:22 | Diagnostic Imaging Report ---
CHEST X-RAY: AP view INDICATION: Pneumothorax, right chest tube removal COMPARISON: Chest x-ray 02/28/2018 FINDINGS: Prior right apical chest tube has been removed. Right dialysis catheter is stable. Right lung infiltrates are seen with consolidative changes in right lower lung zone opacity. Right effusion is noted. There may be a right basal pneumothorax. Mild congestive changes are noted. IMPRESSION: Interval right sided chest tube removal. There may be a small right basal pneumothorax. Right effusion with right lung infiltrates and right lower lung zone consolidative changes. Mild congestive changes.
--- NOTE | 2018-03-01 09:02 | General Progress Note ---
Subjective - Review of Systems Service Date: 03/01/18 Events since last encounter: no pneumo more clearing on xray Objective - Results Result Diagrams: 02/27/18 06:20 02/28/18 05:35 Recent Labs: Laboratory Last Values WBC 10.7 Th/cmm (4.8-10.8) 02/27/18 06:20 RBC 3.41 Mil/cmm (3.80-5.80) L 02/27/18 06:20 Hgb 10.1 gm/dL (12-16) L 02/27/18 06:20 Hct 30.7 % (41.0-60) L 02/27/18 06:20 MCV 89.9 fl (80-99) 02/27/18 06:20 MCH 29.7 pg (27.0-31.0) 02/27/18 06:20 MCHC Differential 33.0 pg (28.0-36.0) 02/27/18 06:20 RDW 15.1 % (11.5-20.0) 02/27/18 06:20 Plt Count 346 Th/cmm (150-400) 02/27/18 06:20 MPV 6.3 fl 02/27/18 06:20 Neutrophils % 65.6 % (40.0-80.0) 02/27/18 06:20 Lymphocytes % 16.8 % (20.0-50.0) L 02/27/18 06:20 Monocytes % 7.5 % (2.0-10.0) 02/27/18 06:20 Eosinophils % 8.9 % (0.0-5.0) H 02/27/18 06:20 Basophils % 1.2 % (0.0-2.0) 02/27/18 06:20 ESR 87 mm/hr (0-20) H 01/31/18 04:15 PT 10.2 SECONDS (9.5-11.5) 02/20/18 09:40 INR 0.98 (0.5-1.4) 02/20/18 09:40 PTT (Actin FS) 30.6 SECONDS (26.0-38.0) 02/20/18 09:40 Sodium 136 mEq/L (136-145) 02/28/18 05:35 Potassium 4.1 mEq/L (3.5-5.1) 02/28/18 05:35 Chloride 106 mEq/L (98-107) 02/28/18 05:35 Carbon Dioxide 25.4 mEq/L (21.0-31.0) 02/28/18 05:35 Anion Gap 8.7 (7.0-16.0) 02/28/18 05:35 BUN 21 mg/dL (7-25) 02/28/18 05:35 Creatinine 3.5 mg/dL (0.7-1.3) H 02/28/18 05:35 Est GFR ( Amer) 22.7 ml/min (>90) 02/28/18 05:35 Est GFR (Non-Af Amer) 18.8 ml/min 02/28/18 05:35 BUN/Creatinine Ratio 6.0 02/28/18 05:35 Glucose 75 mg/dL (70-105) 02/28/18 05:35 POC Glucose 106 MG/DL (70 - 105) H 02/08/18 12:11 Hemoglobin A1c % 3.5 % (4.0-6.0) L 01/31/18 04:15 Whole Bld Lactic Acid 0.55 mmol/L (0.60-1.99) L 01/29/18 16:42 Calcium 8.8 mg/dL (8.6-10.3) 02/28/18 05:35 Phosphorus 4.1 mg/dL (2.5-5.0) 01/31/18 04:15 Magnesium 2.0 mg/dL (1.9-2.7) 02/26/18 04:30 Total Bilirubin 0.4 mg/dL (0.3-1.0) 02/23/18 04:45 AST 13 U/L (13-39) 02/23/18 04:45 ALT 6 U/L (7-52) L 02/23/18 04:45 Alkaline Phosphatase 59 U/L (34-104) 02/23/18 04:45 Creatine Kinase 12 U/L (30-223) L 01/29/18 16:42 Troponin I 0.02 ng/mL (0.01-0.05) 01/29/18 16:42 C-Reactive Protein 11.4 mg/dL (0.0-0.9) H 01/31/18 04:15 Total Protein 5.1 gm/dL (6.0-8.3) L 02/23/18 04:45 Albumin 2.1 gm/dL (4.2-5.5) L 02/23/18 04:45 Globulin 3.0 gm/dL 02/23/18 04:45 Albumin/Globulin Ratio 0.7 (1.0-1.8) L 02/23/18 04:45 Triglycerides 72 mg/dL (<150) 01/31/18 04:15 Cholesterol 97 mg/dL (<200) 01/31/18 04:15 LDL Cholesterol Direct 45 mg/dL (75-193) L 01/31/18 04:15 HDL Cholesterol 36 mg/dL (23-92) 01/31/18 04:15 TSH 2.15 uIU/ml (0.34-5.60) 01/31/18 04:15 PTH Intact 36 pg/mL (15-65) 02/01/18 05:22 Urine Source CLEAN C 02/17/18 16:59 Urine Color YELLOW 02/17/18 16:59 Urine Clarity HAZY (CLEAR) 02/17/18 16:59 Urine pH 8.5 (4.6 - 8.0) 02/17/18 16:59 Ur Specific [place] 1.020 (1.005-1.030) 02/17/18 16:59 Urine Protein >=300 mg/dL (NEGATIVE) 02/17/18 16:59 Urine Glucose (UA) 100 mg/dL (NEGATIVE) H 02/17/18 16:59 Urine Ketones NEGATIVE mg/dL (NEGATIVE) 02/17/18 16:59 Urine Blood LARGE (NEGATIVE) H 02/17/18 16:59 Urine Nitrate NEGATIVE (NEGATIVE) 02/17/18 16:59 Urine Bilirubin NEGATIVE (NEGATIVE) 02/17/18 16:59 Urine Urobilinogen 0.2 E.U./dL (0.2 - 1.0) 02/17/18 16:59 Ur Leukocyte Esterase SMALL (NEGATIVE) H 02/17/18 16:59 Urine RBC 25-50 /hpf (0-5) H 02/17/18 16:59 Urine WBC 6-10 /hpf (0-5) 02/17/18 16:59 Ur Epithelial Cells MODERATE /lpf (FEW) 05/26/18 16:59 Urine Bacteria FEW /hpf (NONE SEEN) 02/17/18 16:59 Fluid Source PLEURAL 02/01/18 11:00 Fluid Color PALE YELLOW 02/01/18 11:00 Fluid Appearance HAZY 02/01/18 11:00 Fluid WBC 149 /cumm 02/01/18 11:00 Fluid RBC 185 /cumm 02/01/18 11:00 Fluid Neutrophils 2 % 02/01/18 11:00 Fluid Lymphocytes 50 % 02/01/18 11:00 Fluid Monocytes 48 % 02/01/18 11:00 Fluid Glucose 75.0 mg/dL 02/01/18 11:00 Fluid Total Protein 2.3 g/dL 02/01/18 11:00 Fluid Amylase 61 U/L 02/01/18 11:00 Random Vancomycin 22.5 ug/mL (5.0-40.0) 02/04/18 05:52 Coccidioides Ab Negative (Neg:<1:2) 02/19/18 05:27 TB (QFT) Gold In Tube Negative (Negative) 02/18/18 19:50 TB Test (QFT) Mitogen 7.52 IU/mL 02/18/18 19:50 TB Test (QFT) Antigen 0.06 IU/mL 02/18/18 19:50 TB Test Antigen - Nil 0.00 IU/mL 02/18/18 19:50 TB Test TB - Nil 0.06 IU/mL 02/18/18 19:50 TB Test (QFT) Interp 02/18/18 19:50 Blood Type O POSITIVE 02/20/18 07:00 Antibody Screen NEGATIVE 02/20/18 07:00 - Physical Exam Vitals and I&O: Vital Signs Temp 96.6 F 03/01/18 07:49 Pulse 80 03/01/18 07:49 Resp 18 03/01/18 07:49 BP 147/71 03/01/18 07:49 Pulse Ox 99 03/01/18 07:49 Intake & Output 02/28/18 03/01/18 03/01/18 18:59 06:59 18:59 Intake Total 6.667 200 Output Total 200 Balance 6.667 0 Weight (lbs) 72.575 kg Intake: Intake, IV Amount 6.667 Cefepime 1 gm In Dextrose 6.667 5% 50 ml @ 100 mls/hr IV Q24H [facility] Rx#:[id number] Oral 200 Output: Urine 200 Other: # Bowel Movements 1 Weight Source Bedscale Active Medications: Current Medications Acetaminophen (Tylenol) 650 mg PO Q6HR PRN PRN Reason: PAIN Stop: 03/30/18 23:07 Acetaminophen/Hydrocodone Bitart ([place] 5mg/325mg) 2 tab PO Q4H PRN PRN Reason: Pain (Moderate) Stop: 03/30/18 23:16 Last Admin: 02/18/18 22:42 Dose: 2 tab Al Hydrox/Mg Hydrox/Simethicone (Maalox) 30 ml PO Q4H PRN PRN Reason: Heartburn Stop: 04/17/18 22:02 Last Admin: 02/16/18 22:29 Dose: 30 ml Albuterol Sulfate (Albuterol 2.5mg/3ml Neb Ud) 2.5 mg HHN Q1H PRN PRN Reason: Respiratory Distress Stop: 03/31/18 07:59 Last Admin: 02/01/18 15:33 Dose: 2.5 mg Albuterol/Ipratropium (Duoneb Neb) 3 ml HHN Q4HRT [facility] Stop: 03/31/18 14:59 Last Admin: 03/01/18 07:31 Dose: Not Given Atorvastatin Calcium (Lipitor) 40 mg PO HS [facility] Stop: 03/31/18 20:59 Last Admin: 02/28/18 21:29 Dose: 40 mg Cinacalcet (Sensipar) 30 mg PO DAILY [facility] Stop: 03/31/18 08:59 Last Admin: 02/28/18 10:08 Dose: Not Given Diclofenac Sodium (Voltaren) 50 mg PO BID [facility] Stop: 04/01/18 08:59 Last Admin: 02/28/18 18:03 Dose: Not Given Docusate Sodium (Colace) 100 mg PO DAILY [facility] Stop: 03/31/18 08:59 Last Admin: 02/28/18 11:10 Dose: Not Given Famotidine (Pepcid) 20 mg PO DAILY [facility] Stop: 04/18/18 08:59 Last Admin: 02/28/18 11:10 Dose: Not Given Hydromorphone HCl (Dilaudid) 2 mg IVP Q4HR PRN PRN Reason: chest pain Stop: 04/21/18 13:55 Last Admin: 02/28/18 21:30 Dose: 2 mg Cefepime HCl 1 gm/ Dextrose 50 mls @ 100 mls/hr IV Q24H [facility] Stop: 04/26/18 10:59 Last Infusion: 02/28/18 14:01 Dose: 100 mls/hr Ipratropium [place] (Atrovent Neb 0.5mg/2.5ml) 0.5 mg HHN Q6HRT [facility] Stop: 03/31/18 12:59 Last Admin: 03/01/18 07:31 Dose: Not Given Lactobacillus Rhamnosus (Culturelle 15b) 1 each PO DAILY [facility] Stop: 04/15/18 08:59 Last Admin: 02/28/18 11:10 Dose: Not Given Megestrol Acetate (Megace) 400 mg PO DAILY [facility]; Protocol Stop: 03/31/18 08:59 Last Admin: 02/28/18 10:08 Dose: Not Given Midodrine (Proamatine) 10 mg PO TID [facility] Stop: 04/16/18 00:29 Last Admin: 02/28/18 21:29 Dose: 10 mg Mirtazapine (Remeron) 30 mg PO HS [facility]; Protocol Stop: 04/26/18 20:59 Last Admin: 02/28/18 21:29 Dose: 30 mg Miscellaneous (Clinical Monitoring) 1 ea [facility] DAILY PRN PRN Reason: RENAL Stop: 04/08/18 08:30 Miscellaneous (Probiotic Screen) 1 ea PRN PRN PRN Reason: PROTOCOL Stop: 04/14/18 09:44 Sevelamer Carbonate (Renvela) 800 mg PO TID [facility] Stop: 03/30/18 23:14 Last Admin: 02/28/18 21:29 Dose: 800 mg Vitamin B Complex/Vit C/Folic Acid (Vitamin B Complex W/Vitamin C) 1 tab PO DAILY [facility] Stop: 03/31/18 08:59 Last Admin: 02/28/18 11:10 Dose: Not Given General: Alert, Oriented x3, Cooperative, No acute distress HEENT: Atraumatic, PERRLA, EOMI, Mucous membr. moist/pink Neck: Supple, +2 carotid pulse wo bruit Cardiovascular: Regular rate, Normal S1, Normal S2 Lungs: Other (increased BS right lung field, (+) chest tube) Abdomen: Bowel sounds, Soft Extremities: no Edema Neurological: Sensation intact Skin: no Rash Psych/Mental Status: Mood NL - Procedures Procedures: Procedures Procedure Code Date DRAINAGE OF R PLEURAL CAV WITH DRAIN DEV, PERC APPROACH [id number] 01/29/18 DRAINAGE OF RIGHT LOWER LUNG LOBE, ENDO, DIAGN [id number] 01/29/18 Assessment/Plan - Problem List Patient Problems: All Active Problems RIGHT FACIAL SWELLING AND PAIN (Acute) Nutritional Asmnt/Malnutr-PDOC - Dietary Evaluation Malnutrition Findings (Please click <Entered> for more info): Nutritional Asmnt/Malnutrition Start: 02/03/18 12: 10 Text: Status: Complete Freq: Protocol: Document 02/03/18 12:10 MMULRAUL (Rec: 02/03/18 12:31 MMULRAUL VALERIO- [email or web address]) Nutritional Asmnt/Malnutrition Patient General Information Nutritional Screening Moderate Risk Diagnosis Rt facuial cellulitis, rt pleural effusion Pertinent Medical Hx/Surgical Hx ESRD on dialysis x 7 years, COPD, hyperlipidemia, Type 2 diabetes Subjective Information Per H&P, patient was on peritoneal dialysis up to a few months ago when he was diagnosed with peritonitis ( now on HD TTS). Per nursing notes, pt refusing some medications. Diet education not appropriate at this time. Current Diet Order/ Nutrition Support 60 gm CCHO, 1200 ml fluid restriction Patient / S.O Not Indicated Pertinent Medications lipitor, Sensipar, colace, lasix, Epogen, Megacem abx, Renvela, Vitamin B complex with C Pertinent Labs ((02/02) Cr 4.5, Ca 8.5, albumin 24 Nutritional Hx/Data Height 1.68 m Height (Calculated Centimeters) 167.6 Current Weight (lbs) 79.379 kg Weight (Calculated Kilograms) 79.4 Weight (Calculated Grams) 66159.7 [place] Body Weight 142 % [place] Body Weight 123 Body Mass Index (BMI) 28.2 Recent Weight Change No Weight Status Overweight GI Symptoms GI Symptoms None Last BM 02/02 x 1 Difficult in: None Food Allergies No Cultural/Ethnic/Christianity Belief none indicated Usual diet at home unknown Skin Integrity/Comment: Ba 15, cellulitis facial Current %PO Good (75-100%) Estimated Nutritional Goals BEE in Kcals: Adj wt of IBW Calories/Kcals/Kg 27-32 kcal/kg using 68.2 kg Adj wt Kcals Calculated 9418-5423 kcal/day Protein: Adj wt of IBW Protein g/k.2-1.5 gm/kg (HD) Protein Calculated 80-100 gm/day Fluid: ml Per MD due to HD Nutritional Problem 1. Problem Problem Increased nutrient needs related to Etiology impaired skin integrity/ dialysis aeb Signs/Symptoms: Facial cellulitis and on HD Intervention/Recommendation Comments Consider modifying diet to 2gm sodium. Glucose/HG1AC low, no need for Diabetic restriction . Continue to monitor K and Phosphorus levels and need for Renal diet (not needed at this time.) Consider Prosource with meals for added protein due to cellulitis and HD. Expected Outcomes/Goals Expected Outcomes/Goals oral intake to meet >75% of nutrient needs, nutritino related labs normalize, weight stable.
[2018-03-01] MEDS: Lactobacillus Rhamnosus GG 15 Billion CFU CAP.SPRINK PO SCH (10:03)
[2018-03-01] MEDS: Vitamin B Complex w/Vitamin C Tab PO SCH (10:05)
--- NOTE | 2018-03-01 14:43 | General Progress Note ---
Subjective - Review of Systems Service Date: 03/01/18 Subjective: alert, comfortable Objective - Results Result Diagrams: 02/27/18 06:20 02/28/18 05:35 Recent Labs: Laboratory Last Values WBC 10.7 Th/cmm (4.8-10.8) 02/27/18 06:20 RBC 3.41 Mil/cmm (3.80-5.80) L 02/27/18 06:20 Hgb 10.1 gm/dL (12-16) L 02/27/18 06:20 Hct 30.7 % (41.0-60) L 02/27/18 06:20 MCV 89.9 fl (80-99) 02/27/18 06:20 MCH 29.7 pg (27.0-31.0) 02/27/18 06:20 MCHC Differential 33.0 pg (28.0-36.0) 02/27/18 06:20 RDW 15.1 % (11.5-20.0) 02/27/18 06:20 Plt Count 346 Th/cmm (150-400) 02/27/18 06:20 MPV 6.3 fl 02/27/18 06:20 Neutrophils % 65.6 % (40.0-80.0) 02/27/18 06:20 Lymphocytes % 16.8 % (20.0-50.0) L 02/27/18 06:20 Monocytes % 7.5 % (2.0-10.0) 02/27/18 06:20 Eosinophils % 8.9 % (0.0-5.0) H 02/27/18 06:20 Basophils % 1.2 % (0.0-2.0) 02/27/18 06:20 ESR 87 mm/hr (0-20) H 01/31/18 04:15 PT 10.2 SECONDS (9.5-11.5) 02/20/18 09:40 INR 0.98 (0.5-1.4) 02/20/18 09:40 PTT (Actin FS) 30.6 SECONDS (26.0-38.0) 02/20/18 09:40 Sodium 136 mEq/L (136-145) 02/28/18 05:35 Potassium 4.1 mEq/L (3.5-5.1) 02/28/18 05:35 Chloride 106 mEq/L (98-107) 02/28/18 05:35 Carbon Dioxide 25.4 mEq/L (21.0-31.0) 02/28/18 05:35 Anion Gap 8.7 (7.0-16.0) 02/28/18 05:35 BUN 21 mg/dL (7-25) 02/28/18 05:35 Creatinine 3.5 mg/dL (0.7-1.3) H 02/28/18 05:35 Est GFR ( Amer) 22.7 ml/min (>90) 02/28/18 05:35 Est GFR (Non-Af Amer) 18.8 ml/min 02/28/18 05:35 BUN/Creatinine Ratio 6.0 02/28/18 05:35 Glucose 75 mg/dL (70-105) 02/28/18 05:35 POC Glucose 106 MG/DL (70 - 105) H 02/08/18 12:11 Hemoglobin A1c % 3.5 % (4.0-6.0) L 01/31/18 04:15 Whole Bld Lactic Acid 0.55 mmol/L (0.60-1.99) L 01/29/18 16:42 Calcium 8.8 mg/dL (8.6-10.3) 02/28/18 05:35 Phosphorus 4.1 mg/dL (2.5-5.0) 01/31/18 04:15 Magnesium 2.0 mg/dL (1.9-2.7) 02/26/18 04:30 Total Bilirubin 0.4 mg/dL (0.3-1.0) 02/23/18 04:45 AST 13 U/L (13-39) 02/23/18 04:45 ALT 6 U/L (7-52) L 02/23/18 04:45 Alkaline Phosphatase 59 U/L (34-104) 02/23/18 04:45 Creatine Kinase 12 U/L (30-223) L 01/29/18 16:42 Troponin I 0.02 ng/mL (0.01-0.05) 01/29/18 16:42 C-Reactive Protein 11.4 mg/dL (0.0-0.9) H 01/31/18 04:15 Total Protein 5.1 gm/dL (6.0-8.3) L 02/23/18 04:45 Albumin 2.1 gm/dL (4.2-5.5) L 02/23/18 04:45 Globulin 3.0 gm/dL 02/23/18 04:45 Albumin/Globulin Ratio 0.7 (1.0-1.8) L 02/23/18 04:45 Triglycerides 72 mg/dL (<150) 01/31/18 04:15 Cholesterol 97 mg/dL (<200) 01/31/18 04:15 LDL Cholesterol Direct 45 mg/dL (75-193) L 01/31/18 04:15 HDL Cholesterol 36 mg/dL (23-92) 01/31/18 04:15 TSH 2.15 uIU/ml (0.34-5.60) 01/31/18 04:15 PTH Intact 36 pg/mL (15-65) 02/01/18 05:22 Urine Source CLEAN C 02/17/18 16:59 Urine Color YELLOW 02/17/18 16:59 Urine Clarity HAZY (CLEAR) 02/17/18 16:59 Urine pH 8.5 (4.6 - 8.0) 02/17/18 16:59 Ur Specific [place] 1.020 (1.005-1.030) 02/17/18 16:59 Urine Protein >=300 mg/dL (NEGATIVE) 02/17/18 16:59 Urine Glucose (UA) 100 mg/dL (NEGATIVE) H 02/17/18 16:59 Urine Ketones NEGATIVE mg/dL (NEGATIVE) 02/17/18 16:59 Urine Blood LARGE (NEGATIVE) H 02/17/18 16:59 Urine Nitrate NEGATIVE (NEGATIVE) 02/17/18 16:59 Urine Bilirubin NEGATIVE (NEGATIVE) 02/17/18 16:59 Urine Urobilinogen 0.2 E.U./dL (0.2 - 1.0) 02/17/18 16:59 Ur Leukocyte Esterase SMALL (NEGATIVE) H 02/17/18 16:59 Urine RBC 25-50 /hpf (0-5) H 02/17/18 16:59 Urine WBC 6-10 /hpf (0-5) 02/17/18 16:59 Ur Epithelial Cells MODERATE /lpf (FEW) 02/17/18 16:59 Urine Bacteria FEW /hpf (NONE SEEN) 02/17/18 16:59 Fluid Source PLEURAL 02/01/18 11:00 Fluid Color PALE YELLOW 02/01/18 11:00 Fluid Appearance HAZY 02/01/18 11:00 Fluid WBC 149 /cumm 02/01/18 11:00 Fluid RBC 185 /cumm 02/01/18 11:00 Fluid Neutrophils 2 % 02/01/18 11:00 Fluid Lymphocytes 50 % 02/01/18 11:00 Fluid Monocytes 48 % 02/01/18 11:00 Fluid Glucose 75.0 mg/dL 02/01/18 11:00 Fluid Total Protein 2.3 g/dL 02/01/18 11:00 Fluid Amylase 61 U/L 02/01/18 11:00 Random Vancomycin 22.5 ug/mL (5.0-40.0) 02/04/18 05:52 Coccidioides Ab Negative (Neg:<1:2) 02/19/18 05:27 TB (QFT) Gold In Tube Negative (Negative) 02/18/18 19:50 TB Test (QFT) Mitogen 7.52 IU/mL 02/18/18 19:50 TB Test (QFT) Antigen 0.06 IU/mL 02/18/18 19:50 TB Test Antigen - Nil 0.00 IU/mL 02/18/18 19:50 TB Test TB - Nil 0.06 IU/mL 02/18/18 19:50 TB Test (QFT) Interp 02/18/18 19:50 Blood Type O POSITIVE 02/20/18 07:00 Antibody Screen NEGATIVE 02/20/18 07:00 - Physical Exam Vitals and I&O: Vital Signs Temp 96.5 F 03/01/18 11:22 Pulse 85 03/01/18 14:37 Resp 18 03/01/18 14:37 BP 100/57 03/01/18 11:22 Pulse Ox 97 03/01/18 14:37 Intake & Output 02/28/18 03/01/18 03/01/18 18:59 06:59 18:59 Intake Total 50.000 200 Output Total 200 Balance 50.000 0 Weight (lbs) 72.575 kg Intake: Intake, IV Amount 50.000 Cefepime 1 gm In Dextrose 50.000 5% 50 ml @ 100 mls/hr IV Q24H REPLACED BY [facility] Rx#:[id number] Oral 200 Output: Urine 200 Other: # Bowel Movements 1 Stool Characteristics Soft Weight Source Bedscale Active Medications: Current Medications Acetaminophen (Tylenol) 650 mg PO Q6HR PRN PRN Reason: PAIN Stop: 03/30/18 23:07 Acetaminophen/Hydrocodone Bitart ([place] 5mg/325mg) 2 tab PO Q4H PRN PRN Reason: Pain (Moderate) Stop: 03/30/18 23:16 Last Admin: 02/18/18 22:42 Dose: 2 tab Al Hydrox/Mg Hydrox/Simethicone (Maalox) 30 ml PO Q4H PRN PRN Reason: Heartburn Stop: 04/17/18 22:02 Last Admin: 02/16/18 22:29 Dose: 30 ml Albuterol Sulfate (Albuterol 2.5mg/3ml Neb Ud) 2.5 mg HHN Q1H PRN PRN Reason: Respiratory Distress Stop: 03/31/18 07:59 Last Admin: 02/01/18 15:33 Dose: 2.5 mg Albuterol/Ipratropium (Duoneb Neb) 3 ml HHN Q4HRT REPLACED BY [facility] Stop: 03/31/18 14:59 Last Admin: 03/01/18 14:36 Dose: Not Given Atorvastatin Calcium (Lipitor) 40 mg PO HS REPLACED BY [facility] Stop: 03/31/18 20:59 Last Admin: 02/28/18 21:29 Dose: 40 mg Cinacalcet (Sensipar) 30 mg PO DAILY REPLACED BY [facility] Stop: 03/31/18 08:59 Last Admin: 03/01/18 10:03 Dose: Not Given Diclofenac Sodium (Voltaren) 50 mg PO BID REPLACED BY [facility] Stop: 04/01/18 08:59 Last Admin: 03/01/18 10:03 Dose: Not Given Docusate Sodium (Colace) 100 mg PO DAILY REPLACED BY [facility] Stop: 03/31/18 08:59 Last Admin: 03/01/18 10:03 Dose: Not Given Famotidine (Pepcid) 20 mg PO DAILY REPLACED BY [facility] Stop: 04/18/18 08:59 Last Admin: 03/01/18 10:03 Dose: Not Given Hydromorphone HCl (Dilaudid) 2 mg IVP Q4HR PRN PRN Reason: chest pain Stop: 04/21/18 13:55 Last Admin: 02/28/18 21:30 Dose: 2 mg Cefepime HCl 1 gm/ Dextrose 50 mls @ 100 mls/hr IV Q24H REPLACED BY [facility] Stop: 04/26/18 10:59 Last Admin: 03/01/18 11:54 Dose: 100 mls/hr Lactobacillus Rhamnosus (Culturelle 15b) 1 each PO DAILY REPLACED BY [facility] Stop: 04/15/18 08:59 Last Admin: 03/01/18 10:03 Dose: Not Given Megestrol Acetate (Megace) 400 mg PO DAILY REPLACED BY [facility]; Protocol Stop: 03/31/18 08:59 Last Admin: 03/01/18 10:03 Dose: Not Given Midodrine (Proamatine) 10 mg PO TID REPLACED BY [facility] Stop: 04/16/18 00:29 Last Admin: 03/01/18 13:26 Dose: 10 mg Mirtazapine (Remeron) 30 mg PO HS REPLACED BY [facility]; Protocol Stop: 04/26/18 20:59 Last Admin: 02/28/18 21:29 Dose: 30 mg Miscellaneous (Clinical Monitoring) 1 ea MC DAILY PRN PRN Reason: RENAL Stop: 04/08/18 08:30 Miscellaneous (Probiotic Screen) 1 ea MC PRN PRN PRN Reason: PROTOCOL Stop: 04/14/18 09:44 Sevelamer Carbonate (Renvela) 800 mg PO TID REPLACED BY [facility] Stop: 03/30/18 23:14 Last Admin: 03/01/18 13:26 Dose: 800 mg Vitamin B Complex/Vit C/Folic Acid (Vitamin B Complex W/Vitamin C) 1 tab PO DAILY REPLACED BY [facility] Stop: 03/31/18 08:59 Last Admin: 03/01/18 10:05 Dose: Not Given General: Alert, Oriented x3, Cooperative, No acute distress HEENT: Atraumatic, PERRLA, EOMI, Mucous membr. moist/pink Neck: Supple, +2 carotid pulse wo bruit Cardiovascular: Regular rate, Normal S1, Normal S2 Lungs: Other (increased BS right lung field) Abdomen: Bowel sounds, Soft Extremities: no Edema Neurological: Sensation intact Skin: no Rash Psych/Mental Status: Mood NL - Procedures Procedures: Procedures Procedure Code Date DRAINAGE OF R PLEURAL CAV WITH DRAIN DEV, PERC APPROACH [id number] 01/29/18 DRAINAGE OF RIGHT LOWER LUNG LOBE, ENDO, DIAGN [id number] 01/29/18 Assessment/Plan - Problem List Patient Problems: All Active Problems RIGHT FACIAL SWELLING AND PAIN (Acute) - Assessment Assessment: ESRD on HD Right facial cellulitis Right lung opacification 2/2 effusion Cx UTI T2DM Anemia of CKD right PTX s/p chest tube S/P right lung surgery - Plan Plan: Lab - Result Diagrams 01/31/18 04:15 01/31/18 04:15 Current Medications Acetaminophen (Tylenol) 650 mg PO Q6HR PRN PRN Reason: PAIN Stop: 03/30/18 23:07 Acetaminophen/Hydrocodone Bitart ([place] 5mg/325mg) 2 tab PO Q4H PRN PRN Reason: Pain (Moderate) Stop: 03/30/18 23:16 Last Admin: 01/29/18 23:29 Dose: 2 tab Acetylcysteine (Mucomyst 20%) 2 ml HHN Q4HRT AMANDA Stop: 03/31/18 14:59 Last Admin: 01/31/18 11:27 Dose: 2 ml Albuterol Sulfate (Albuterol 2.5mg/3ml Neb Ud) 2.5 mg HHN Q1H PRN PRN Reason: Respiratory Distress Stop: 03/31/18 07:59 Albuterol/Ipratropium (Duoneb Neb) 3 ml HHN Q4HRT AMANDA Stop: 03/31/18 14:59 Last Admin: 01/31/18 11:27 Dose: 3 ml Atorvastatin Calcium (Lipitor) 40 mg PO HS AMANDA Stop: 03/31/18 20:59 Last Admin: 01/30/18 21:19 Dose: 40 mg Cinacalcet (Sensipar) 30 mg PO DAILY AMANDA Stop: 03/31/18 08:59 Last Admin: 01/31/18 08:28 Dose: Not Given Diclofenac Sodium (Voltaren) 50 mg PO BID AMANDA Stop: 04/01/18 08:59 Last Admin: 01/31/18 08:25 Dose: 50 mg Docusate Sodium (Colace) 100 mg PO DAILY AMANDA Stop: 03/31/18 08:59 Last Admin: 01/31/18 08:26 Dose: 100 mg Epoetin Vishal (Epogen) 10,000 units SUBQ MWF@1600 AMANDA Stop: 04/01/18 15:59 Furosemide (Lasix) 40 mg PO DAILY AMANDA Stop: 03/31/18 08:59 Last Admin: 01/31/18 08:26 Dose: 40 mg Heparin Sodium (Porcine) (Heparin) 5,000 units IVP ONCE@2100 REPLACED BY [facility] Stop: 01/31/18 21:01 Last Admin: 01/30/18 21:18 Dose: 5,000 units Ceftriaxone Sodium 1 gm/ (Sodium Chloride) 50 mls @ 100 mls/hr IV Q24HR AMANDA Stop: 03/31/18 18:59 Last Infusion: 01/30/18 21:50 Dose: Infused Ipratropium [place] (Atrovent Neb 0.5mg/2.5ml) 0.5 mg HHN Q6HRT REPLACED BY [facility] Stop: 03/31/18 12:59 Last Admin: 01/31/18 00:57 Dose: Not Given Lactobacillus Rhamnosus (Culturelle 15b) 1 each PO DAILY REPLACED BY [facility] Stop: 03/30/18 23:14 Last Admin: 01/31/18 08:27 Dose: 1 each Megestrol Acetate (Megace) 400 mg PO DAILY REPLACED BY [facility] PRN Reason: Protocol Stop: 03/31/18 08:59 Last Admin: 01/31/18 09:31 Dose: Not Given Metoprolol Tartrate (Lopressor) 50 mg PO BID REPLACED BY [facility] Stop: 03/30/18 23:14 Last Admin: 01/31/18 08:27 Dose: 50 mg Midodrine (Proamatine) 5 mg PO TID PRN PRN Reason: HYPOTENSION Stop: 03/30/18 23:07 Miscellaneous (Vancomycin Iv Per Pharmacy) 1 ea MC PRN REPLACED BY [facility] Stop: 03/30/18 21:44 Morphine Sulfate (Morphine) 1 mg IVP Q4HR PRN PRN Reason: Pain (Severe) Stop: 03/30/18 23:17 Last Admin: 01/31/18 08:17 Dose: 1 mg Sevelamer Carbonate (Renvela) 800 mg PO TID REPLACED BY [facility] Stop: 03/30/18 23:14 Last Admin: 01/31/18 08:28 Dose: 800 mg Vitamin B Complex/Vit C/Folic Acid (Vitamin B Complex W/Vitamin C) 1 tab PO DAILY REPLACED BY [facility] Stop: 03/31/18 08:59 Lab - Result Diagrams 02/27/18 06:20 02/28/18 05:35 continue Rocephin WBC down to 10.7 bronchoscopy: no endobronchial lesion CXR: persistent right effusion, PNA surgery revealed trapped lung CT removed yesterday Dialysis today Nutritional Asmnt/Malnutr-PDOC - Dietary Evaluation Malnutrition Findings (Please click <Entered> for more info): Nutritional Asmnt/Malnutrition Start: 02/03/18 12: 10 Text: Status: Complete Freq: Protocol: Document 02/03/18 12:10 RICO (Rec: 02/03/18 12:31 RICO VALERIO- [email or web address]) Nutritional Asmnt/Malnutrition Patient General Information Nutritional Screening Moderate Risk Diagnosis Rt facuial cellulitis, rt pleural effusion Pertinent Medical Hx/Surgical Hx ESRD on dialysis x 7 years, COPD, hyperlipidemia, Type 2 diabetes Subjective Information Per H&P, patient was on peritoneal dialysis up to a few months ago when he was diagnosed with peritonitis ( now on HD TTS). Per nursing notes, pt refusing some medications. Diet education not appropriate at this time. Current Diet Order/ Nutrition Support 60 gm CCHO, 1200 ml fluid restriction Patient / S.O Not Indicated Pertinent Medications lipitor, Sensipar, colace, lasix, Epogen, Megacem abx, Renvela, Vitamin B complex with C Pertinent Labs ((02/02) Cr 4.5, Ca 8.5, albumin 24 Nutritional Hx/Data Height 1.68 m Height (Calculated Centimeters) 167.6 Current Weight (lbs) 79.379 kg Weight (Calculated Kilograms) 79.4 Weight (Calculated Grams) 41710.7 [place] Body Weight 142 % [place] Body Weight 123 Body Mass Index (BMI) 28.2 Recent Weight Change No Weight Status Overweight GI Symptoms GI Symptoms None Last BM 02/02 x 1 Difficult in: None Food Allergies No Cultural/Ethnic/Sabianist Belief none indicated Usual diet at home unknown Skin Integrity/Comment: Ba 15, cellulitis facial Current %PO Good (75-100%) Estimated Nutritional Goals BEE in Kcals: Adj wt of IBW Calories/Kcals/Kg 27-32 kcal/kg using 68.2 kg Adj wt Kcals Calculated 9575-8903 kcal/day Protein: Adj wt of IBW Protein g/k.2-1.5 gm/kg (HD) Protein Calculated 80-100 gm/day Fluid: ml Per MD due to HD Nutritional Problem 1. Problem Problem Increased nutrient needs related to Etiology impaired skin integrity/ dialysis aeb Signs/Symptoms: Facial cellulitis and on HD Intervention/Recommendation Comments Consider modifying diet to 2gm sodium. Glucose/HG1AC low, no need for Diabetic restriction . Continue to monitor K and Phosphorus levels and need for Renal diet (not needed at this time.) Consider Prosource with meals for added protein due to cellulitis and HD. Expected Outcomes/Goals Expected Outcomes/Goals oral intake to meet >75% of nutrient needs, nutritino related labs normalize, weight stable.
--- NOTE | 2018-03-02 21:14 | Discharge Summary ---
DATE OF DISCHARGE: 03/02/2018 ADMITTING DIAGNOSES: 1. Right facial swelling and redness consistent with cellulitis, rule out abscess versus parotitis. 2. Complete opacification of the right hemithorax with differential including total lung collapse versus pleural effusion versus obstruction such as a mucus plug or a mass. 3. Leukocytosis. 4. Urinary tract infection. SECONDARY DIAGNOSES: 1. End-stage renal disease, on hemodialysis, previously on peritoneal dialysis. 2. History of chronic obstructive pulmonary disease, clinically stable. 3. History of diabetes. 4. History of hyperlipidemia. DISCHARGE DIAGNOSES: 1. Status post chest tube placement via VATS secondary to persistent left pleural effusion and left-sided pneumothorax. 2. Status post chest tube removal 3. Complicated pneumonia with pseudomonas. 4. Leukocytosis, resolved. 5. Urinary tract infection, status post treatment. 6. Right facial cellulitis, status post treatment. CONSULTANTS: 1. Pulmonary, Dr. Tapia. 2. Nephro, Dr. Arriaga. 3. General surgery, Dr. Arriola. MAJOR PROCEDURES: On 01/30/2018, he underwent a soft tissue ultrasound of the right mandibular region showing edema along the right mandibular area in the region of concern, which may be due to cellulitis. There was no drainable fluid collection identified at this time. Initial X-rays: Chest x-ray done on 01/29/2018 showed complete opacification of the right hemithorax. Chest CT done on 01/31/2018 showed a large right effusion with compressive atelectasis and collapse of the right lung. There might be underlying pneumonia. Small left effusion with left basal passive atelectatic consolidative changes. Heavy atherosclerotic vascular disease with coronary artery calcification. There is a right IJ dialysis catheter with tip in the cavoatrial junction. Severe bilateral renal atrophy. There is evidence of prior cholecystectomy. There is a common bile duct measuring up to 1.2 cm, which may be related to patient's previous cholecystectomy. On 02/01/2018, patient underwent a thoracentesis for 1000 mL of yellow-tinged pleural fluid. On 02/05/2018, patient underwent placement of a right PleurX tube under fluoroscopy without any complications. There was a repeat chest CT done on 02/05/2018 showing the right anterior approach chest tube coursing superiorly initially and then coursing inferiorly with tip terminating along the medial aspect of the right lower hemithorax adjacent to the mediastinum. There is persistence large right anterior pneumothorax estimated at 40-50%. There is diffuse right lung infiltrates with consolidative changes and small right effusion. There is also a small left effusion noted with left basal opacity of atelectatic and consolidative changes. On 02/08/2018, patient underwent insertion of a right chest tube placement without any complications. Repeat chest CT on 02/12/2018 showed: 1. Little change since 02/05/2018 with persistent right pneumothorax roughly about 40-50%. 2. Persistently decreased parenchymal density in the right lower lobe consistent with atelectasis and/or consolidation. Volume loss noted on the right side. 3. Small bilateral pleural effusions. 4. Persistent cardiomegaly with evidence of severe coronary artery and atherosclerotic vascular changes. On 02/20/2018, he underwent: 1. Video-assisted thoracoscopy with conversion to open right thoracotomy. 2. Decortication of visceral pleura, whole right lung. 3. Decortication of parietal pleura, posterior chest. 4. Injection of Exparel. BRIEF HOSPITAL COURSE: The patient is a 67-year-old gentleman who resides at [facility] and was initially transferred given 2-3 day history of right facial swelling, redness and pain. The patient was seen at the ER, was diagnosed with a right-sided facial cellulitis, but on his admission x-rays, there was noticeable opacification of the right hemithorax. The patient was admitted to tele and Pulmonary consult was asked for further management and care. He was placed on IV antibiotics with improvement of the right facial cellulitis and on admission, his white count was noted to be slightly elevated at 12.2, but improving by 02/01/2018 to 10.1 He also was seen by Nephrology given his chronic renal failure and hemodialysis management. As far as the pleural effusion was concerned, the patient underwent a detailed workup including the chest tube mentioned on the above-mentioned procedures that was done on 01/31/2018. This was followed by ultrasound-guided thoracentesis and eventual placement of a chest tube by General Surgery around 02/05/2018 as delineated above. After this procedure was done, the patient was transferred to the ICU where he remained for a few days for close observation. His chest tube showed drainage, but followup x-rays did not show much improvement. There was also noted to be a pneumothorax roughly 40-50% on the right side as noted above. The patient, however, remained asymptomatic with good O2 sats with O2 cannula while in the ICU. He eventually underwent chest tube placement as noted above, which was discontinued on or around 02/27/2018. On 03/01/2018, a chest x-ray showed interval right-sided chest tube removal showing small right basal pneumothorax. During this period, the patient was treated with broad spectrum antibiotics and pulmonary supportive care. DISCHARGE MEDICATIONS: Tylenol 650 q. 6 h. p.r.n. for mild pain, DuoNeb q.4 h. while awake and p.r.n., atorvastatin 40 at bedtime, cefepime 1 gram q. 24 hours, Sensipar 30 every day, docusate sodium 100 every day, Voltaren 50 b.i.d., famotidine 20 every day, [place] 5/325 q. 4 p.r.n. for moderate pain, Dilaudid 2 mg IV push q.4 hours p.r.n. for severe pain, Megace 400 mg daily, midodrine 10 mg t.i.d., Remeron 30 at bedtime, probiotic every day, Renvela 800 mg t.i.d. DISPOSITION: The patient was transferred to [facility] in [place] for long-term acute care. JOB# [id number] MTDDestiny
== END 2018-03-02 00:43 | DRG 853 ==
LOC: ER 16:06 → TELE 19:00 → ICU 02-20 16:31 → MSI 02-26 18:30 → TELE 02-26 18:42
PROVIDERS: ADMIT Internal Medicine; ATTEND Internal Medicine
PROC: 0W9930Z Drainage of Right Pleural Cavity with Drainage Device, Percutaneous Approach (ICD-10-PCS; principal; 2018-01-29)
PROC: 5A1D70Z Performance of Urinary Filtration, Intermittent, Less than 6 Hours Per Day (ICD-10-PCS; 2018-01-30)
PROC: 5A1D70Z Performance of Urinary Filtration, Intermittent, Less than 6 Hours Per Day (ICD-10-PCS; 2018-02-01)
PROC: 5A1D70Z Performance of Urinary Filtration, Intermittent, Less than 6 Hours Per Day (ICD-10-PCS; 2018-02-03)
PROC: 0W9930Z Drainage of Right Pleural Cavity with Drainage Device, Percutaneous Approach (ICD-10-PCS; 2018-02-05)
PROC: 5A1D70Z Performance of Urinary Filtration, Intermittent, Less than 6 Hours Per Day (ICD-10-PCS; 2018-02-06)
PROC: 5A1D70Z Performance of Urinary Filtration, Intermittent, Less than 6 Hours Per Day (ICD-10-PCS; 2018-02-08)
PROC: 5A1D70Z Performance of Urinary Filtration, Intermittent, Less than 6 Hours Per Day (ICD-10-PCS; 2018-02-13)
PROC: 0B9F8ZX Drainage of Right Lower Lung Lobe, Via Natural or Artificial Opening Endoscopic, Diagnostic (ICD-10-PCS; 2018-02-14)
PROC: 5A1D70Z Performance of Urinary Filtration, Intermittent, Less than 6 Hours Per Day (ICD-10-PCS; 2018-02-15)
PROC: 5A1D70Z Performance of Urinary Filtration, Intermittent, Less than 6 Hours Per Day (ICD-10-PCS; 2018-02-17)
PROC: 5A1D70Z Performance of Urinary Filtration, Intermittent, Less than 6 Hours Per Day (ICD-10-PCS; 2018-02-19)
PROC: 0BCK0ZZ Extirpation of Matter from Right Lung, Open Approach (ICD-10-PCS; 2018-02-20)
PROC: 0BJK4ZZ Inspection of Right Lung, Percutaneous Endoscopic Approach (ICD-10-PCS; 2018-02-20)
PROC: 0BCN0ZZ Extirpation of Matter from Right Pleura, Open Approach (ICD-10-PCS; 2018-02-20)
PROC: 3E0L4GC Introduction of Other Therapeutic Substance into Pleural Cavity, Percutaneous Endoscopic Approach (ICD-10-PCS; 2018-02-20)
PROC: 5A1D70Z Performance of Urinary Filtration, Intermittent, Less than 6 Hours Per Day (ICD-10-PCS; 2018-02-20)
PROC: 5A1D70Z Performance of Urinary Filtration, Intermittent, Less than 6 Hours Per Day (ICD-10-PCS; 2018-02-22)
PROC: 0WP8X0Z Removal of Drainage Device from Chest Wall, External Approach (ICD-10-PCS; 2018-02-23)
PROC: 5A1D70Z Performance of Urinary Filtration, Intermittent, Less than 6 Hours Per Day (ICD-10-PCS; 2018-02-24)
PROC: 5A1D70Z Performance of Urinary Filtration, Intermittent, Less than 6 Hours Per Day (ICD-10-PCS; 2018-02-27)
PROC: 5A1D70Z Performance of Urinary Filtration, Intermittent, Less than 6 Hours Per Day (ICD-10-PCS; 2018-03-01)
DX: A41.9 Sepsis, unspecified organism (principal); J15.1 Pneumonia due to Pseudomonas; N18.6 End stage renal disease; K65.9 Peritonitis, unspecified; J93.9 Pneumothorax, unspecified; J90 Pleural effusion, not elsewhere classified; L03.211 Cellulitis of face; J98.19 Other pulmonary collapse; N39.0 Urinary tract infection, site not specified; I12.0 Hypertensive chronic kidney disease with stage 5 chronic kidney disease or end stage renal disease; L02.01 Cutaneous abscess of face; N25.81 Secondary hyperparathyroidism of renal origin; E11.22 Type 2 diabetes mellitus with diabetic chronic kidney disease; Z99.2 Dependence on renal dialysis; J44.9 Chronic obstructive pulmonary disease, unspecified; E78.5 Hyperlipidemia, unspecified; D63.1 Anemia in chronic kidney disease; Z86.73 Personal history of transient ischemic attack (TIA), and cerebral infarction without residual deficits; Z83.3 Family history of diabetes mellitus; Z82.49 Family history of ischemic heart disease and other diseases of the circulatory system; Z90.49 Acquired absence of other specified parts of digestive tract; Z87.891 Personal history of nicotine dependence; N25.0 Renal osteodystrophy; D50.9 Iron deficiency anemia, unspecified
CPT/HCPCS: 36415-UA; 71045-TC; 71250-TC; 76000-TC; 76536-TC; 76942-TC; 80048-TC; 80053-TC; 80061-TC; 80202-TC; 81001-TC; 82042-TC; 82150-TC; 82550-TC; 82945-TC; 82948-90; 83036-90; 83605; 83615-TC; 83735-TC; 83970-90; 84100-TC; 84132-TC; 84157-TC; 84443-TC; 84484-TC; 85025-TC; 85610-TC; 85652-TC; 85730-TC; 86141-TC; 86480-90; 86635-90; 86850-TC; 86900-TC; 86901-TC; 87070-90; 87075-90; 87086-90; 87102-90; 87116-90; 87205-90; 87206-90; 87556-90; 88162-90; 88304-TC; 88305-90; 89051-TC; 90779; 90799; 90937; 93005; 94640; 94667; 94668; 94760; 96372; A4217; C9290; J0360; J0692; J0696; J0885; J1170; J1644; J1956; J2001; J2060; J2250; J2405; J2704; J2710; J2765; J3010; J3370; J3475; J7030; J7040; J7799; P9046; V2790; X6258; X6492; X7704; Z7506; Z7610

== ENCOUNTER 2018-05-04 12:34 | Inpatient (IN) | payer MEDICARE, OTHER ==
[2018-05-04 13:28] LABS: % BASOPHILS 1.2 % (0.0-2.0); % EOSINOPHILS 6.5 % (0.0-5.0); % LYMPHOCYTES 17.4 % (20.0-50.0); % MONOCYTES 7.8 % (2.0-10.0); % NEUTROPHILS 67.1 % (40.0-80.0); BASOPHILE ABSOLUTE 0.1 Th/cumm (0-0.2); EOSINOPHILE ABSOLUTE 0.8 Th/cmm (0.1-0.4); HEMATOCRIT 28.7 % (41.0-60); HEMOGLOBIN 9.6 gm/dL (12-16); LYMPHOCYTE ABSOLUTE 2.2 Th/cmm (1.5-3.0); MEAN CELL VOLUME 88.3 fl (80-99); MEAN CORPUSCULAR HEMOGLOBIN 29.6 pg (27.0-31.0); MEAN CORPUSCULAR HGB CONC 33.5 pg (28.0-36.0); MEAN PLATELET VOLUME 6.4 fl; NEUTROPHILE ABSOLUTE 8.3 Th/cmm (1.8-8.0); PLATELET COUNT 327 Th/cmm (150-400); RED BLOOD COUNT 3.25 Mil/cmm (3.80-5.80); WHITE BLOOD COUNT 12.4 Th/cmm (4.8-10.8)
--- NOTE | 2018-05-04 13:29 | ED Physician Chart ---
ED Chief Complaint/HPI - Patient Information Date Seen:: 05/04/18 Time Seen:: 13:01 Allergies:: Allergies Allergy/AdvReac Type Severity Reaction Status Date / Time No Known Allergies Allergy Verified 01/29/18 16:23 Vitals:: Vital Signs - 8 hr 05/04/18 13:01 Temp 98.5 F HR 70 RR 16 BP 188/97 O2 Sat % 93 ED Past Medical History - Past Medical History Past Medical History: ESRD, Other (dialysis dependent) Family Medical History - Family Member Mother History Unknown: Yes ED Physical Exam - Physical Examination General/Constitutional: Awake, Well-developed, well-nourished, Alert, No distress, GCS 15, Ambulatory Other Gen/Cons comments:: chronically ill appearing. pale. Head: Atraumatic Other Skin comments:: pale. Other Respiratory comments:: decrease breath sounds both lung bases. rales. R portacath in place. GI: No tenderness/rebounding/guarding, No organomegaly, No hernia, Normal BS's, Nondistended, No mass/bruits, No McBurney tenderness Other GI comments:: peritoneal dialysis catheter in place that has been there for 5 years. Extremities: No tenderness or effusion, Full ROM, normal strength in all extremities, No edema, Normal digits & nails Neuro/Psych: Alert/oriented, Normal motor strength, Judgement/insight normal, Mood normal, No focal deficits Misc: Normal back, No paraspinal tenderness ED Assessment - Assessment General Assessment: EKG from 13:37:30 p.m.: normal sinus rhythm, flipped t wave in AVL. Nonspecific t wave abnormalities. Assessment/Comments:: spoke with Dr. Verdugo about admitting this patient to telemetry. ED Septic Shock - . Is Septic Shock (SBP<90, OR Lactate>4 mmol\L) present?: No - <6hrs of presentation: Vital Signs: Vital Signs - 8 hr 05/04/18 13:01 Temp 98.5 F HR 70 RR 16 BP 188/97 O2 Sat % 93 ED Reassessment (Disposition) - Reassessment Reassessment Condition:: Unchanged - Diagnosis Diagnosis:: End stage renal disease Dialysis dependent Cardiomegaly Atherosclerotic vascular disease Anemia Depression H/o hypotension with dialysis Hyperlipidemia - Patient Disposition Discharge/Transfer:: Acute Care w/in this hosp Admitted to:: Telemetry Condition at Disposition:: Stable
--- NOTE | 2018-05-04 13:35 | Diagnostic Imaging Report ---
CHEST X-RAY: AP view INDICATION: Shortness of breath, decreased breath sounds COMPARISON: 03/01/2018 FINDINGS: Right dialysis catheter is stable. Findings of CHF are seen with right effusion and right lung infiltrates. Additional left basal infiltrates are noted. Cardiomegaly and atherosclerosis. Degenerative changes of the spine are noted. IMPRESSION: CHF with right effusion and right lung infiltrates and additional left basal infiltrates. Cardiomegaly and atherosclerotic vascular disease.
[2018-05-04 13:41] LABS: ALB/GLOB RATIO 0.7 (1.0-1.8); ANION GAP 16.5 (7.0-16.0); BILIRUBIN,TOTAL 0.5 mg/dL (0.3-1.0); CALCIUM SERUM 9.3 mg/dL (8.6-10.3); CARBON DIOXIDE 24.3 mEq/L (21.0-31.0); GFR AFRICAN-AMERICAN 8.5 ml/min (>90); MAGNESIUM 2.3 mg/dL (1.9-2.7); PHOSPHOROUS 10.1 mg/dL (2.5-5.0); POTASSIUM SERUM 5.8 mEq/L (3.5-5.1); TOTAL PROTEIN,SERUM 7.2 gm/dL (6.0-8.3)
[2018-05-04 14:10] LABS: CREATININE - SERUM 8.2 mg/dL (0.7-1.3)
[2018-05-04 19:50] VITALS: BP 169/93
[2018-05-04] MEDS ORDERED: Albuterol Nebulizer 2.5mg/3mL HHN PRN (21:18)
[2018-05-04] MEDS ORDERED: Hydrocodone/APAP 5mg/325mg Tab PO PRN (21:18)
[2018-05-04] MEDS ORDERED: Maalox 30 mL Cup PO PRN (21:18)
[2018-05-04] MEDS ORDERED: Non-Formulary Item 1 EA (Apixaban [Eliquis] 2.5 MG) PO SCH (21:30)
[2018-05-04] MEDS: Cefepime 1 GM in Sodium Chloride 0.9% 50 ML IV SCH (23:08)
[2018-05-04] MEDS ORDERED: Atorvastatin Calcium 10 MG TAB ONE (23:25)
[2018-05-05 07:25] LABS: % EOSINOPHILS 6.6 % (0.0-5.0); % LYMPHOCYTES 17.6 % (20.0-50.0); % MONOCYTES 10.9 % (2.0-10.0); % NEUTROPHILS 63.9 % (40.0-80.0); BASOPHILE ABSOLUTE 0.1 Th/cumm (0-0.2); EOSINOPHILE ABSOLUTE 0.6 Th/cmm (0.1-0.4); LYMPHOCYTE ABSOLUTE 1.6 Th/cmm (1.5-3.0); MEAN CELL VOLUME 87.7 fl (80-99); MEAN CORPUSCULAR HEMOGLOBIN 29.3 pg (27.0-31.0); MEAN CORPUSCULAR HGB CONC 33.4 pg (28.0-36.0); MEAN PLATELET VOLUME 6.9 fl; NEUTROPHILE ABSOLUTE 5.7 Th/cmm (1.8-8.0); PLATELET COUNT 282 Th/cmm (150-400); RED BLOOD COUNT 3.08 Mil/cmm (3.80-5.80); RED CELL DISTRIBUTION WIDTH 17.2 % (11.5-20.0)
[2018-05-05] MEDS: Vitamin B Complex w/Vitamin C Tab PO SCH (08:45)
[2018-05-05] MEDS: Aspirin 81mg Chewable Tab PO SCH (08:46)
[2018-05-05] MEDS: Lactobacillus Rhamnosus GG 15 Billion CFU CAP.SPRINK PO SCH (08:46)
[2018-05-05] MEDS ORDERED: Non-Formulary Item 1 EA (Lactobacillus Acidophilus [Acidophilus Lactobacillus] 1 EACH) PO SCH (09:00)
[2018-05-05] MEDS ORDERED: Non-Formulary Item 1 EA (Tiotropium Bromide [Spiriva] 18 MCG) INH SCH (09:00)
[2018-05-05] MEDS ORDERED: Non-Formulary Item 1 EA (Protein Hydrolysate,Milk [Liquid Protein Fortifier] 30 ML) PO SCH (09:00)
[2018-05-05 09:33] LABS: ALB/GLOB RATIO 0.7 (1.0-1.8); ALBUMIN 2.7 gm/dL (4.2-5.5); ANION GAP 13.9 (7.0-16.0); BILIRUBIN,TOTAL 0.4 mg/dL (0.3-1.0); CALCIUM SERUM 9.1 mg/dL (8.6-10.3); CARBON DIOXIDE 28.1 mEq/L (21.0-31.0); GFR AFRICAN-AMERICAN 14.4 ml/min (>90); GFR NON AFRICAN-AMERICAN 11.9 ml/min; MAGNESIUM 1.9 mg/dL (1.9-2.7); TOTAL PROTEIN,SERUM 6.5 gm/dL (6.0-8.3)
[2018-05-05 09:36] LABS: CREATININE - SERUM 5.2 mg/dL (0.7-1.3)
[2018-05-05 11:08] LABS: HEP A AB IGM Negative (Negative); HEP B CORE IGM Negative (Negative); HEP B SURFACE AG QL Negative (Negative); HEP C ANTIBODY 0.1 s/co ratio (0.0-0.9)
[2018-05-05 13:07] LABS: INR 1.04 (0.5-1.4); PROTHROMBIN TIME (TEST) 10.8 SECONDS (9.5-11.5)
--- NOTE | 2018-05-05 13:40 | History & Physical ---
ADMIT DATE: 05/04/2018 CHIEF COMPLAINT: Missed hemodialysis. HISTORY OF PRESENT ILLNESS: This is a 67-year-old gentleman who resides at [facility] with history of end-stage renal disease, on hemodialysis Mondays, Wednesdays, and Fridays, CAD, chronic anemia, hypertension, diabetes, who was admitted to this facility back on 01/29/2018 for facial cellulitis and pleural effusion. At that time, he underwent chest tube placement and a VATS procedure secondary to persistent right-sided pleural effusion. He had a complicated hospital course given the development of complex pneumonia with pseudomonas. The patient states that he has been doing well at the long term facility except for feeling chronically weak and not able to fully participate with physical therapy. The patient was transferred to the ER given that there were some technical issues with his transportation in order to get hemodialysis. He currently has no major complaints. He reports no fever, chills, no chest pain or palpitation. He reports mild shortness of breath upon exertion, but overall no dyspnea and orthopnea. No cough or phlegm production. The patient was admitted last night to [facility] and received hemodialysis without any complications. PAST MEDICAL HISTORY: As noted above. He was previously on peritoneal dialysis, but developed peritonitis and that is when he was changed to hemodialysis. History of malnourishment. PAST SURGICAL HISTORY: Cholecystectomy and peritoneal dialysis catheter placement. FAMILY HISTORY: Noncontributory. SOCIAL HISTORY: A longstanding history of nicotine dependence. He smoked about a pack a day for about 50 years, he quit a few months ago. No alcohol. No illicit drug usage. He lives at [facility]. ALLERGIES: NKDA. OUTPATIENT MEDICATIONS: Fungal cream once a day; Dilaudid 2 mg IV push q.4 hours p.r.n. for severe pain; Tylenol 650 q.6 hours p.r.n. for mild pain; Maalox q.4 hours for GI upset; albuterol q.4 p.r.n. for shortness of breath; Eliquis 2.5 b.i.d.; aspirin 81 every day; atorvastatin 40 at bedtime; cefepime 1 gram q.24; Sensipar 30 every day; diclofenac 50 b.i.d.; Colace 100 mg every day; Epogen 10,000 units Mondays, Wednesdays and Fridays; famotidine 20 every day; Lasix 40 every day; [place] 5/325 two tabs q.4 hours p.r.n. for moderate pain; lactobacillus 1 tab b.i.d.; Megace 400 mg daily; metoprolol 50 b.i.d.; midodrine 15 mg t.i.d.; Remeron 30 at bedtime; protein supplements t.i.d.; Renvela 800 mg t.i.d.; Spiriva 18 mcg inhalation every day; vitamin B and C 1 tab every day. REVIEW OF SYSTEMS: CONSTITUTIONAL: The patient reports weight loss over the last few months since he had peritonitis, but as of late over the last few weeks he states that he has gained weight. He reports no fever or chills. CARDIAC: No chest pain, palpitations. PULMONARY: Occasional shortness of breath, especially upon exertion, but no cough, no phlegm production. GASTROINTESTINAL: No bowel habit changes. GENITOURINARY: No bladder habit changes. NEUROLOGIC: No changes in vision, no headaches. Denies any syncopal episodes. PHYSICAL EXAMINATION: VITAL SIGNS: Temperature 98.2, pulse 63, BP 153/74, respirations 20, satting 95% on 2 liters nasal cannula. GENERAL: He is a well-developed, well-nourished male, not in acute distress. He is awake, alert and oriented x 3. HEAD AND NECK: Normocephalic, atraumatic. Pupils are reactive to light. Extraocular movements are intact. Oropharynx is moist and clear. CARDIOVASCULAR: Regular rate and rhythm with normal S1, S2. No audible murmurs noted. LUNGS: Clear to auscultation bilaterally. There is on the right side diminished breath sounds at the base with mild crackles upon deep inspiration. ABDOMEN: Soft, supple, nontender, nondistended, normoactive bowel sounds. EXTREMITIES: Lower extremities, there is no edema. NEUROLOGIC: Grossly intact, nonfocal. Cranial nerves 2-12 are within normal limits. LABORATORY DATA: White count 12.4, H and H 06/22 with a platelet count of 327. Sodium 136, potassium 5.8, chloride 101, CO2 24, BUN 69, creatinine 8.2, calcium 9.3, phosphorus 10.1, AST 17, ALT 14. DIAGNOSTIC DATA: Chest x-ray shows consistency with CHF and right effusion. Right lung infiltrates and additional left basal infiltrates were also noted. Cardiomegaly with atherosclerotic vascular disease. EKG: Sinus rhythm at a rate of 65. ASSESSMENT: 1. History of end-stage renal disease with missed hemodialysis. 2. History of congestive heart failure with persistent right pleural effusion, status post video-assisted thoracoscopic surgery with chest tube placement. 3. Bilateral basal infiltrates, likely chronic. Differential would include atelectasis vs. pna. There are no signs or symptoms of infection. 4. History of chronic anemia. 5. History of essential hypertension. 6. History of coronary artery disease. 7. History of type 2 diabetes. 8. History of recent complex pseudomonas pneumonia. PLAN: The patient has been admitted to the [facility] for further management and care. As noted above, he was dialyzed yesterday upon admission and will be continued to dialyze as scheduled by Nephrology. The patient will be kept on his current medications including cefepime and pulmonary supportive care. I will ask for child support case officer marciano to assist in hemodialysis placement as out patient. JOB# [id number] MTDDestiny
[2018-05-05] MEDS: Cefepime 1 GM in Sodium Chloride 0.9% 50 ML IV SCH (21:14)
--- NOTE | 2018-05-05 23:39 | Consultation ---
DATE OF CONSULTATION: 05/05/2018 ATTENDING: Rachel Verdugo M.D. HEALTH COUNSELOR: Jaime Barba M.D. REASON FOR CONSULTATION: Electrolyte imbalance and fluid management. HISTORY OF PRESENT ILLNESS: This is a 67-year-old male with past medical history of end-stage renal disease on hemodialysis, who was brought in because he missed his dialysis treatment. A few hours prior to admission, he missed his transportation to the outpatient dialysis unit. Thus, he was brought to the Emergency Room. Potassium was 5.8 with a chest x-ray that showed CHF with right effusion and bilateral infiltrates. He was dialyzed as scheduled with subsequent improvement of potassium to 4. He denied any nausea and vomiting, fever/chills, cough, congestion or shortness of breath. PAST MEDICAL HISTORY: 1. End-stage renal disease on hemodialysis. 2. Chronic right effusion status post lung biopsy, which turned out to be negative, he was just treated for complicated pneumonia. 3. Essential hypertension. PAST SURGICAL HISTORY: 1. Status post cholecystectomy. 2. Status post placement of PD catheter. 3. Status post VATS with decortication. CURRENT MEDICATIONS: He is currently on acetaminophen, aspirin, atorvastatin, cefepime, cinacalcet, diclofenac, docusate sodium, Epogen, famotidine, furosemide, hydrocodone/APAP, lactobacillus, megestrol acetate, metoprolol, midodrine, mirtazapine, sevelamer, warfarin. ALLERGIES: No known drug allergies. SOCIAL HISTORY: He did have a history of smoking for almost 50 years, but already quit. No history of alcohol abuse. FAMILY HISTORY: Noncontributory to present illness. REVIEW OF SYSTEMS: CONSTITUTIONAL: Denied any weakness, appetite had been fair, no fever or chills. HEENT: Denied headaches nor dizziness. CARDIORESPIRATORY: Denied any chest pain, palpitations, diaphoresis, cough, no shortness of breath, has a history of chronic right effusion and complicated pneumonia. GASTROINTESTINAL: No nausea and vomiting, abdominal pain or cramping, hematemesis, melena, hematochezia, nor diarrhea. ENDOCRINE: No history of diabetes, thyroid abnormalities, or dyslipidemia. HEMATOLOGIC: History of anemia of chronic kidney disease. NEUROPSYCH: No syncopal episode nor seizure activity. IMPRESSION: 1. End-stage renal disease on hemodialysis. 2. Hyperkalemia secondary to #1. 3. Chronic right effusion, treated for complicated pneumonia. 4. Essential hypertension. PLAN: 1. Hemodialysis as scheduled. 2. Follow up chest x-ray and electrolytes. 3. Fluid restriction. Thank you, Dr. Verdugo for this consult. I will follow the patient closely with you. JOB# [id number]
[2018-05-06 06:40] LABS: % BASOPHILS 0.8 % (0.0-2.0); % EOSINOPHILS 8.4 % (0.0-5.0); % LYMPHOCYTES 20.9 % (20.0-50.0); % NEUTROPHILS 61.9 % (40.0-80.0); BASOPHILE ABSOLUTE 0.1 Th/cumm (0-0.2); EOSINOPHILE ABSOLUTE 0.9 Th/cmm (0.1-0.4); HEMATOCRIT 28.2 % (41.0-60); HEMOGLOBIN 9.5 gm/dL (12-16); LYMPHOCYTE ABSOLUTE 2.2 Th/cmm (1.5-3.0); MEAN CELL VOLUME 88.7 fl (80-99); MEAN CORPUSCULAR HEMOGLOBIN 29.8 pg (27.0-31.0); MEAN CORPUSCULAR HGB CONC 33.6 pg (28.0-36.0); MONOCYTE ABSOLUTE 0.8 Th/cmm (0.3-1.0); NEUTROPHILE ABSOLUTE 6.6 Th/cmm (1.8-8.0); PLATELET COUNT 299 Th/cmm (150-400); RED BLOOD COUNT 3.17 Mil/cmm (3.80-5.80); WHITE BLOOD COUNT 10.6 Th/cmm (4.8-10.8)
[2018-05-06 06:49] LABS: INR 0.98 (0.5-1.4); PROTHROMBIN TIME (TEST) 10.2 SECONDS (9.5-11.5)
[2018-05-06 06:57] LABS: ANION GAP 13.1 (7.0-16.0); CALCIUM SERUM 8.8 mg/dL (8.6-10.3); CARBON DIOXIDE 27.2 mEq/L (21.0-31.0); GFR AFRICAN-AMERICAN 11.3 ml/min (>90); GFR NON AFRICAN-AMERICAN 9.4 ml/min; MAGNESIUM 2.2 mg/dL (1.9-2.7); POTASSIUM SERUM 4.3 mEq/L (3.5-5.1)
[2018-05-06 07:25] LABS: CREATININE - SERUM 6.4 mg/dL (0.7-1.3)
[2018-05-06] MEDS ORDERED: Lactobacillus Rhamnosus GG 15 Billion CFU CAP.SPRINK PO SCH (09:00)
--- NOTE | 2018-05-06 09:41 | Diagnostic Imaging Report ---
Exam: Portable chest x-ray HISTORY: Congestive heart failure. Findings: Portable upright examination of the chest at 0738 hours reviewed and compared to prior study 05/04/2017 demonstrates unchanged appearance of right lower lobe pneumonia and effusion. There is decrease in congestion. Right subclavian catheter terminates. Indicated. Mediastinal structures midline the heart is not enlarged. The left lung parenchyma is well aerated. IMPRESSION: Right lower lung infiltrate and effusion unchanged upper prior examination follow-up dictation recommended.
[2018-05-06] MEDS: Vitamin B Complex w/Vitamin C Tab PO SCH (10:14)
[2018-05-06] MEDS: Aspirin 81mg Chewable Tab PO SCH (10:14)
[2018-05-06] MEDS: Lactobacillus Rhamnosus GG 15 Billion CFU CAP.SPRINK PO SCH (10:15)
--- NOTE | 2018-05-06 13:42 | General Progress Note ---
Subjective - Review of Systems Service Date: 05/06/18 Subjective: sleeping, comfortble Objective - Results Result Diagrams: 05/06/18 05:42 05/06/18 05:42 Recent Labs: Laboratory Last Values WBC 10.6 Th/cmm (4.8-10.8) 05/06/18 05:42 RBC 3.17 Mil/cmm (3.80-5.80) L 05/06/18 05:42 Hgb 9.5 gm/dL (12-16) L 05/06/18 05:42 Hct 28.2 % (41.0-60) L 05/06/18 05:42 MCV 88.7 fl (80-99) 05/06/18 05:42 MCH 29.8 pg (27.0-31.0) 05/06/18 05:42 MCHC Differential 33.6 pg (28.0-36.0) 05/06/18 05:42 RDW 17.0 % (11.5-20.0) 05/06/18 05:42 Plt Count 299 Th/cmm (150-400) 05/06/18 05:42 MPV 7.0 fl 05/06/18 05:42 Neutrophils % 61.9 % (40.0-80.0) 05/06/18 05:42 Lymphocytes % 20.9 % (20.0-50.0) 05/06/18 05:42 Monocytes % 8.0 % (2.0-10.0) 05/06/18 05:42 Eosinophils % 8.4 % (0.0-5.0) H 05/06/18 05:42 Basophils % 0.8 % (0.0-2.0) 05/06/18 05:42 PT 10.2 SECONDS (9.5-11.5) 05/06/18 05:42 INR 0.98 (0.5-1.4) 05/06/18 05:42 Sodium 141 mEq/L (136-145) 05/06/18 05:42 Potassium 4.3 mEq/L (3.5-5.1) 05/06/18 05:42 Chloride 105 mEq/L (98-107) 05/06/18 05:42 Carbon Dioxide 27.2 mEq/L (21.0-31.0) 05/06/18 05:42 Anion Gap 13.1 (7.0-16.0) 05/06/18 05:42 BUN 46 mg/dL (7-25) H 05/06/18 05:42 Creatinine 6.4 mg/dL (0.7-1.3) H* 05/06/18 05:42 Est GFR ( Amer) 11.3 ml/min (>90) 05/06/18 05:42 Est GFR (Non-Af Amer) 9.4 ml/min 05/06/18 05:42 BUN/Creatinine Ratio 7.2 05/06/18 05:42 Glucose 97 mg/dL (70-105) 05/06/18 05:42 Calcium 8.8 mg/dL (8.6-10.3) 05/06/18 05:42 Phosphorus 10.1 mg/dL (2.5-5.0) H* 05/04/18 13:20 Magnesium 2.2 mg/dL (1.9-2.7) 05/06/18 05:42 Total Bilirubin 0.4 mg/dL (0.3-1.0) 05/05/18 05:55 AST 16 U/L (13-39) 05/05/18 05:55 ALT 12 U/L (7-52) 05/05/18 05:55 Alkaline Phosphatase 75 U/L (34-104) 05/05/18 05:55 B-Natriuretic Peptide > 5000.0 pg/mL (5.0-100.0) H 05/04/18 13:20 Total Protein 6.5 gm/dL (6.0-8.3) 05/05/18 05:55 Albumin 2.7 gm/dL (4.2-5.5) L 05/05/18 05:55 Globulin 3.8 gm/dL 05/05/18 05:55 Albumin/Globulin Ratio 0.7 (1.0-1.8) L 05/05/18 05:55 Hepatitis A IgM Ab Negative (Negative) 05/04/18 19:20 Hep Bs Antigen Negative (Negative) 05/04/18 19:20 Hep B Core IgM Ab Negative (Negative) 05/04/18 19:20 Hepatitis C Antibody 0.1 s/co ratio (0.0-0.9) 05/04/18 19:20 - Physical Exam Vitals and I&O: Vital Signs Temp 97.5 F 05/06/18 12:44 Pulse 54 05/06/18 12:44 Resp 20 05/06/18 12:44 BP 171/88 05/06/18 12:44 Pulse Ox 97 05/06/18 12:44 Intake & Output 05/05/18 05/06/18 05/06/18 18:59 06:59 18:59 Intake Total 350 380 Balance 350 380 Weight (lbs) 74.389 kg 70.624 kg Intake: Intake, IV Amount 50 Cefepime 1 gm In Sodium 50 Chloride 0.9% 50 ml @ 100 mls/hr IV Q24HR@2200 [facility] Rx#:[id number] Oral 350 300 Other 30 Other: # Voids 2 # Bowel Movements 1 3 Stool Characteristics Soft Formed Weight Source Bedscale Bedscale Active Medications: Current Medications Acetaminophen (Tylenol) 650 mg PO Q6HR PRN PRN Reason: PAIN Stop: 07/03/18 21:17 Acetaminophen/Hydrocodone Bitart ([place] 5mg/325mg) 2 tab PO Q4H PRN PRN Reason: Pain (Moderate) Stop: 07/03/18 21:17 Al Hydrox/Mg Hydrox/Simethicone (Maalox) 30 ml PO Q4H PRN PRN Reason: Heartburn Stop: 07/03/18 21:17 Albuterol Sulfate (Albuterol 2.5mg/3ml Neb Ud) 2.5 mg HHN Q1H PRN PRN Reason: Respiratory Distress Stop: 07/03/18 21:17 Albuterol/Ipratropium (Duoneb Neb) 3 ml HHN Q4HRT [facility] Stop: 07/03/18 22:59 Aspirin (Aspirin Chewable) 81 mg PO DAILY [facility] Stop: 07/04/18 08:59 Last Admin: 05/06/18 10:14 Dose: 81 mg Atorvastatin Calcium (Lipitor) 40 mg PO HS [facility]; Protocol Stop: 07/04/18 20:59 Last Admin: 05/05/18 20:48 Dose: 40 mg Cinacalcet (Sensipar) 30 mg PO DAILY [facility] Stop: 07/04/18 08:59 Last Admin: 05/06/18 10:13 Dose: 30 mg Diclofenac Sodium (Voltaren) 50 mg PO BID [facility] Stop: 07/04/18 08:59 Last Admin: 05/05/18 16:38 Dose: 50 mg Docusate Sodium (Colace) 100 mg PO DAILY [facility] Stop: 07/04/18 08:59 Last Admin: 05/06/18 10:12 Dose: 100 mg Epoetin Vishal (Epogen) 10,000 units SUBQ MWF [facility] Stop: 07/06/18 08:59 Famotidine (Pepcid) 20 mg PO DAILY [facility] Stop: 07/04/18 08:59 Last Admin: 05/06/18 10:13 Dose: 20 mg Furosemide (Lasix) 40 mg PO DAILY [facility] Stop: 07/04/18 08:59 Last Admin: 05/06/18 10:13 Dose: 40 mg Cefepime HCl 1 gm/ Sodium (Chloride) 50 mls @ 100 mls/hr IV Q24HR@2200 [facility] Stop: 07/03/18 21:59 Last Infusion: 05/05/18 21:45 Dose: Infused Lactobacillus Rhamnosus (Culturelle 15b) 1 each PO DAILY [facility] Stop: 07/04/18 08:59 Last Admin: 05/06/18 10:15 Dose: 1 each Megestrol Acetate (Megace) 400 mg PO DAILY [facility]; Protocol Stop: 07/04/18 08:59 Last Admin: 05/06/18 10:12 Dose: 400 mg Metoprolol Tartrate (Lopressor) 50 mg PO BID [facility] Stop: 07/03/18 21:59 Last Admin: 05/06/18 10:14 Dose: 50 mg Midodrine (Proamatine) 5 mg PO TID PRN PRN Reason: HYPOTENSION, SBP LESS THAN 60 Stop: 07/03/18 21:17 Mirtazapine (Remeron) 30 mg PO HS [facility]; Protocol Stop: 07/03/18 22:59 Last Admin: 05/05/18 20:48 Dose: 30 mg Sevelamer Carbonate (Renvela) 800 mg PO TIDWM [facility] Stop: 07/04/18 07:59 Last Admin: 05/06/18 10:19 Dose: 800 mg Vitamin B Complex/Vit C/Folic Acid (Vitamin B Complex W/Vitamin C) 1 tab PO DAILY [facility] Stop: 07/04/18 08:59 Last Admin: 05/06/18 10:14 Dose: 1 tab Warfarin Sodium (Coumadin Per Pharmacy) 1 ea [facility] PRN PRN PRN Reason: PROTOCOL Stop: 07/04/18 12:24 Warfarin Sodium (Coumadin) 7.5 mg PO C [facility] Stop: 05/06/18 17:00 General: No acute distress HEENT: EOMI, Mucous membr. moist/pink Neck: Supple, Thyromegaly Cardiovascular: Regular rate, Normal S1, Normal S2 Lungs: Other (decreased BS right lung) Abdomen: Bowel sounds, Soft Extremities: no Edema Neurological: Sensation intact Skin: no Rash Psych/Mental Status: Mood NL - Procedures Procedures: Procedures Procedure Code Date DRAINAGE OF R PLEURAL CAV WITH DRAIN DEV, PERC APPROACH [id number] 01/29/18 DRAINAGE OF RIGHT LOWER LUNG LOBE, ENDO, DIAGN [id number] 01/29/18 EXTIRPATION OF MATTER FROM RIGHT LUNG, OPEN APPROACH [id number] 01/29/18 EXTIRPATION OF MATTER FROM RIGHT PLEURA, OPEN APPROACH [id number] 01/29/18 INSPECTION OF RIGHT LUNG, PERCUTANEOUS ENDOSCOPIC APPROACH [id number] 01/29/18 INTRODUCE OTH THERAP SUBST IN PLEURAL CAV, PERC ENDO [id number] 01/29/18 PERFORMANCE OF URINARY FILTRATION, <6 HRS/DAY [id number] 01/29/18 REMOVAL OF DRAINAGE DEVICE FROM CHEST WALL, IRONWORKER APPROACH [id number] 01/29/18 Assessment/Plan - Assessment Assessment: ESRD on HD Hyperkalemia Chronic right effusion Ess Htn - Plan Plan: Lab - Result Diagrams 05/06/18 05:42 05/06/18 05:42 Current Medications Acetaminophen (Tylenol) 650 mg PO Q6HR PRN PRN Reason: PAIN Stop: 07/03/18 21:17 Acetaminophen/Hydrocodone Bitart ([place] 5mg/325mg) 2 tab PO Q4H PRN PRN Reason: Pain (Moderate) Stop: 07/03/18 21:17 Al Hydrox/Mg Hydrox/Simethicone (Maalox) 30 ml PO Q4H PRN PRN Reason: Heartburn Stop: 07/03/18 21:17 Albuterol Sulfate (Albuterol 2.5mg/3ml Neb Ud) 2.5 mg HHN Q1H PRN PRN Reason: Respiratory Distress Stop: 07/03/18 21:17 Albuterol/Ipratropium (Duoneb Neb) 3 ml HHN Q4HRT [facility] Stop: 07/03/18 22:59 Aspirin (Aspirin Chewable) 81 mg PO DAILY [facility] Stop: 07/04/18 08:59 Last Admin: 05/06/18 10:14 Dose: 81 mg Atorvastatin Calcium (Lipitor) 40 mg PO HS [facility]; Protocol Stop: 07/04/18 20:59 Last Admin: 05/05/18 20:48 Dose: 40 mg Cinacalcet (Sensipar) 30 mg PO DAILY [facility] Stop: 07/04/18 08:59 Last Admin: 05/06/18 10:13 Dose: 30 mg Diclofenac Sodium (Voltaren) 50 mg PO BID [facility] Stop: 07/04/18 08:59 Last Admin: 05/05/18 16:38 Dose: 50 mg Docusate Sodium (Colace) 100 mg PO DAILY [facility] Stop: 07/04/18 08:59 Last Admin: 05/06/18 10:12 Dose: 100 mg Epoetin Vishal (Epogen) 10,000 units SUBQ MWF [facility] Stop: 07/06/18 08:59 Famotidine (Pepcid) 20 mg PO DAILY [facility] Stop: 07/04/18 08:59 Last Admin: 05/06/18 10:13 Dose: 20 mg Furosemide (Lasix) 40 mg PO DAILY [facility] Stop: 07/04/18 08:59 Last Admin: 05/06/18 10:13 Dose: 40 mg Cefepime HCl 1 gm/ Sodium (Chloride) 50 mls @ 100 mls/hr IV Q24HR@2200 [facility] Stop: 07/03/18 21:59 Last Infusion: 05/05/18 21:45 Dose: Infused Lactobacillus Rhamnosus (Culturelle 15b) 1 each PO DAILY [facility] Stop: 07/04/18 08:59 Last Admin: 05/06/18 10:15 Dose: 1 each Megestrol Acetate (Megace) 400 mg PO DAILY [facility]; Protocol Stop: 07/04/18 08:59 Last Admin: 05/06/18 10:12 Dose: 400 mg Metoprolol Tartrate (Lopressor) 50 mg PO BID [facility] Stop: 07/03/18 21:59 Last Admin: 05/06/18 10:14 Dose: 50 mg Midodrine (Proamatine) 5 mg PO TID PRN PRN Reason: HYPOTENSION, SBP LESS THAN 60 Stop: 07/03/18 21:17 Mirtazapine (Remeron) 30 mg PO HS [facility]; Protocol Stop: 07/03/18 22:59 Last Admin: 05/05/18 20:48 Dose: 30 mg Sevelamer Carbonate (Renvela) 800 mg PO TIDWM [facility] Stop: 07/04/18 07:59 Last Admin: 05/06/18 10:19 Dose: 800 mg Vitamin B Complex/Vit C/Folic Acid (Vitamin B Complex W/Vitamin C) 1 tab PO DAILY [facility] Stop: 07/04/18 08:59 Last Admin: 05/06/18 10:14 Dose: 1 tab Warfarin Sodium (Coumadin Per Pharmacy) 1 ea MC PRN PRN PRN Reason: PROTOCOL Stop: 07/04/18 12:24 Warfarin Sodium (Coumadin) 7.5 mg PO C [facility] Stop: 05/06/18 17:00 Lab - Result Diagrams 05/06/18 05:42 05/06/18 05:42 schedule for HD in am transportation arrangement for outpt. dialysis being done
[2018-05-06] MEDS: Albuterol/Ipratropium Neb 3 ML AERS HHN SCH ×2 (19:22→22:10)
[2018-05-06] MEDS: Cefepime 1 GM in Sodium Chloride 0.9% 50 ML IV SCH (21:47)
[2018-05-07] MEDS: Albuterol/Ipratropium Neb 3 ML AERS HHN SCH ×6 (03:00→19:28)
[2018-05-07 05:30] LABS: INR 1.08 (0.5-1.4); PROTHROMBIN TIME (TEST) 11.2 SECONDS (9.5-11.5)
[2018-05-07 05:39] LABS: CALCIUM SERUM 8.3 mg/dL (8.6-10.3); CARBON DIOXIDE 26.5 mEq/L (21.0-31.0); GFR AFRICAN-AMERICAN 9.9 ml/min (>90); GFR NON AFRICAN-AMERICAN 8.2 ml/min; POTASSIUM SERUM 4.5 mEq/L (3.5-5.1)
[2018-05-07 06:27] LABS: CREATININE - SERUM 7.2 mg/dL (0.7-1.3)
[2018-05-07 06:49] LABS: % BASOPHILS 0.5 % (0.0-2.0); % EOSINOPHILS 9.9 % (0.0-5.0); % LYMPHOCYTES 25.5 % (20.0-50.0); % MONOCYTES 9.1 % (2.0-10.0); HEMATOCRIT 24.4 % (41.0-60); HEMOGLOBIN 8.3 gm/dL (12-16); LYMPHOCYTE ABSOLUTE 2.5 Th/cmm (1.5-3.0); MEAN CELL VOLUME 87.9 fl (80-99); MEAN CORPUSCULAR HEMOGLOBIN 29.7 pg (27.0-31.0); MEAN CORPUSCULAR HGB CONC 33.8 pg (28.0-36.0); MEAN PLATELET VOLUME 7.3 fl; MONOCYTE ABSOLUTE 0.9 Th/cmm (0.3-1.0); NEUTROPHILE ABSOLUTE 5.3 Th/cmm (1.8-8.0); PLATELET COUNT 269 Th/cmm (150-400); RED BLOOD COUNT 2.78 Mil/cmm (3.80-5.80); RED CELL DISTRIBUTION WIDTH 16.4 % (11.5-20.0); WHITE BLOOD COUNT 9.7 Th/cmm (4.8-10.8)
[2018-05-07] MEDS ORDERED: Epoetin Alfa 20000 Units/mL Vial SUBQ SCH (09:00)
[2018-05-07] MEDS ORDERED: Non-Formulary Item 1 EA (Epoetin Alfa [Procrit] 10,000 UNIT) IJ SCH (09:00)
[2018-05-07] MEDS: Lactobacillus Rhamnosus GG 15 Billion CFU CAP.SPRINK PO SCH (09:59)
[2018-05-07] MEDS: Vitamin B Complex w/Vitamin C Tab PO SCH (09:59)
[2018-05-07] MEDS: Aspirin 81mg Chewable Tab PO SCH (09:59)
--- NOTE | 2018-05-07 14:21 | General Progress Note ---
Subjective - Review of Systems Service Date: 05/07/18 Subjective: sleeping, comfortble Objective - Results Result Diagrams: 05/07/18 04:05 05/07/18 04:05 Recent Labs: Laboratory Last Values WBC 9.7 Th/cmm (4.8-10.8) 05/07/18 04:05 RBC 2.78 Mil/cmm (3.80-5.80) L 05/07/18 04:05 Hgb 8.3 gm/dL (12-16) L 05/07/18 04:05 Hct 24.4 % (41.0-60) L 05/07/18 04:05 MCV 87.9 fl (80-99) 05/07/18 04:05 MCH 29.7 pg (27.0-31.0) 05/07/18 04:05 MCHC Differential 33.8 pg (28.0-36.0) 05/07/18 04:05 RDW 16.4 % (11.5-20.0) 05/07/18 04:05 Plt Count 269 Th/cmm (150-400) 05/07/18 04:05 MPV 7.3 fl 05/07/18 04:05 Neutrophils % 55.0 % (40.0-80.0) 05/07/18 04:05 Lymphocytes % 25.5 % (20.0-50.0) 05/07/18 04:05 Monocytes % 9.1 % (2.0-10.0) 05/07/18 04:05 Eosinophils % 9.9 % (0.0-5.0) H 05/07/18 04:05 Basophils % 0.5 % (0.0-2.0) 05/07/18 04:05 PT 11.2 SECONDS (9.5-11.5) 05/07/18 04:05 INR 1.08 (0.5-1.4) 05/07/18 04:05 Sodium 139 mEq/L (136-145) 05/07/18 04:05 Potassium 4.5 mEq/L (3.5-5.1) 05/07/18 04:05 Chloride 104 mEq/L (98-107) 05/07/18 04:05 Carbon Dioxide 26.5 mEq/L (21.0-31.0) 05/07/18 04:05 Anion Gap 13.0 (7.0-16.0) 05/07/18 04:05 BUN 50 mg/dL (7-25) H 05/07/18 04:05 Creatinine 7.2 mg/dL (0.7-1.3) H* 05/07/18 04:05 Est GFR ( Amer) 9.9 ml/min (>90) 05/07/18 04:05 Est GFR (Non-Af Amer) 8.2 ml/min 05/07/18 04:05 BUN/Creatinine Ratio 6.9 05/07/18 04:05 Glucose 76 mg/dL (70-105) 05/07/18 04:05 Calcium 8.3 mg/dL (8.6-10.3) L 05/07/18 04:05 Phosphorus 10.1 mg/dL (2.5-5.0) H* 05/04/18 13:20 Magnesium 2.2 mg/dL (1.9-2.7) 05/06/18 05:42 Total Bilirubin 0.4 mg/dL (0.3-1.0) 05/05/18 05:55 AST 16 U/L (13-39) 05/05/18 05:55 ALT 12 U/L (7-52) 05/05/18 05:55 Alkaline Phosphatase 75 U/L (34-104) 05/05/18 05:55 B-Natriuretic Peptide > 5000.0 pg/mL (5.0-100.0) H 05/04/18 13:20 Total Protein 6.5 gm/dL (6.0-8.3) 05/05/18 05:55 Albumin 2.7 gm/dL (4.2-5.5) L 05/05/18 05:55 Globulin 3.8 gm/dL 05/05/18 05:55 Albumin/Globulin Ratio 0.7 (1.0-1.8) L 05/05/18 05:55 Hepatitis A IgM Ab Negative (Negative) 05/04/18 19:20 Hep Bs Antigen Negative (Negative) 05/04/18 19:20 Hep B Core IgM Ab Negative (Negative) 05/04/18 19:20 Hepatitis C Antibody 0.1 s/co ratio (0.0-0.9) 05/04/18 19:20 - Physical Exam Vitals and I&O: Vital Signs Temp 97.2 F 05/07/18 08:07 Pulse 58 05/07/18 10:48 Resp 18 05/07/18 10:48 BP 150/69 05/07/18 09:30 Pulse Ox 98 05/07/18 10:48 Intake & Output 05/06/18 05/07/18 05/07/18 18:59 06:59 18:59 Intake Total 340 Output Total 0 Balance 340 Weight (lbs) 73.618 kg 73.482 kg Intake: Oral 340 Output: Urine 0 Other: # Bowel Movements 0 Stool Characteristics Soft Soft Formed Formed Weight Source Bedscale Bedscale Active Medications: Current Medications Acetaminophen (Tylenol) 650 mg PO Q6HR PRN PRN Reason: PAIN Stop: 07/03/18 21:17 Acetaminophen/Hydrocodone Bitart (Kennard 5mg/325mg) 2 tab PO Q4H PRN PRN Reason: Pain (Moderate) Stop: 07/03/18 21:17 Al Hydrox/Mg Hydrox/Simethicone (Maalox) 30 ml PO Q4H PRN PRN Reason: Heartburn Stop: 07/03/18 21:17 Albuterol Sulfate (Albuterol 2.5mg/3ml Neb Ud) 2.5 mg HHN Q1H PRN PRN Reason: Respiratory Distress Stop: 07/03/18 21:17 Albuterol/Ipratropium (Duoneb Neb) 3 ml HHN Q4HRT [facility] Stop: 07/03/18 22:59 Last Admin: 05/07/18 10:52 Dose: 3 ml Aspirin (Aspirin Chewable) 81 mg PO DAILY [facility] Stop: 07/04/18 08:59 Last Admin: 05/07/18 09:59 Dose: 81 mg Atorvastatin Calcium (Lipitor) 40 mg PO HS [facility]; Protocol Stop: 07/04/18 20:59 Last Admin: 05/06/18 21:07 Dose: 40 mg Cinacalcet (Sensipar) 30 mg PO DAILY [facility] Stop: 07/04/18 08:59 Last Admin: 05/07/18 09:59 Dose: 30 mg Diclofenac Sodium (Voltaren) 50 mg PO BID [facility] Stop: 07/04/18 08:59 Last Admin: 05/07/18 09:59 Dose: 50 mg Docusate Sodium (Colace) 100 mg PO DAILY [facility] Stop: 07/04/18 08:59 Last Admin: 05/07/18 09:58 Dose: 100 mg Epoetin Vishal (Epogen) 10,000 units SUBQ MWF [facility] Stop: 07/06/18 08:59 Famotidine (Pepcid) 20 mg PO DAILY [facility] Stop: 07/04/18 08:59 Last Admin: 05/07/18 09:58 Dose: 20 mg Furosemide (Lasix) 40 mg PO DAILY [facility] Stop: 07/04/18 08:59 Last Admin: 05/07/18 09:30 Dose: 40 mg Cefepime HCl 1 gm/ Sodium (Chloride) 50 mls @ 100 mls/hr IV Q24HR@2200 [facility] Stop: 07/03/18 21:59 Last Admin: 05/06/18 21:47 Dose: 100 mls/hr Lactobacillus Rhamnosus (Culturelle 15b) 1 each PO DAILY [facility] Stop: 07/04/18 08:59 Last Admin: 05/07/18 09:59 Dose: 1 each Megestrol Acetate (Megace) 400 mg PO DAILY [facility]; Protocol Stop: 07/04/18 08:59 Last Admin: 05/07/18 09:58 Dose: 400 mg Metoprolol Tartrate (Lopressor) 50 mg PO BID [facility] Stop: 07/03/18 21:59 Last Admin: 05/07/18 10:07 Dose: Not Given Midodrine (Proamatine) 5 mg PO TID PRN PRN Reason: HYPOTENSION, SBP LESS THAN 60 Stop: 07/03/18 21:17 Mirtazapine (Remeron) 30 mg PO HS [facility]; Protocol Stop: 07/03/18 22:59 Last Admin: 05/06/18 21:07 Dose: 30 mg Sevelamer Carbonate (Renvela) 800 mg PO TIDWM [facility] Stop: 07/04/18 07:59 Last Admin: 05/06/18 18:27 Dose: Not Given Vitamin B Complex/Vit C/Folic Acid (Vitamin B Complex W/Vitamin C) 1 tab PO DAILY [facility] Stop: 07/04/18 08:59 Last Admin: 05/07/18 09:59 Dose: 1 tab Warfarin Sodium (Coumadin Per Pharmacy) 1 ea MC PRN PRN PRN Reason: PROTOCOL Stop: 07/04/18 12:24 General: Alert, No acute distress HEENT: EOMI, Mucous membr. moist/pink Neck: Supple, Thyromegaly Cardiovascular: Regular rate, Normal S1, Normal S2 Lungs: Other (decreased BS right lung) Abdomen: Bowel sounds, Soft Extremities: no Edema Neurological: Sensation intact Skin: no Rash Psych/Mental Status: Mood NL - Procedures Procedures: Procedures Procedure Code Date DRAINAGE OF R PLEURAL CAV WITH DRAIN DEV, PERC APPROACH [id number] 01/29/18 DRAINAGE OF RIGHT LOWER LUNG LOBE, ENDO, DIAGN [id number] 01/29/18 EXTIRPATION OF MATTER FROM RIGHT LUNG, OPEN APPROACH [id number] 01/29/18 EXTIRPATION OF MATTER FROM RIGHT PLEURA, OPEN APPROACH [id number] 01/29/18 INSPECTION OF RIGHT LUNG, PERCUTANEOUS ENDOSCOPIC APPROACH [id number] 01/29/18 INTRODUCE OTH THERAP SUBST IN PLEURAL CAV, PERC ENDO [id number] 01/29/18 PERFORMANCE OF URINARY FILTRATION, <6 HRS/DAY [id number] 01/29/18 REMOVAL OF DRAINAGE DEVICE FROM CHEST WALL, IT PROGRAMMER APPROACH [id number] 01/29/18 Assessment/Plan - Assessment Assessment: ESRD on HD Hyperkalemia Chronic right effusion Ess Htn - Plan Plan: Lab - Result Diagrams 05/06/18 05:42 05/06/18 05:42 Current Medications Acetaminophen (Tylenol) 650 mg PO Q6HR PRN PRN Reason: PAIN Stop: 07/03/18 21:17 Acetaminophen/Hydrocodone Bitart (Kennard 5mg/325mg) 2 tab PO Q4H PRN PRN Reason: Pain (Moderate) Stop: 07/03/18 21:17 Al Hydrox/Mg Hydrox/Simethicone (Maalox) 30 ml PO Q4H PRN PRN Reason: Heartburn Stop: 07/03/18 21:17 Albuterol Sulfate (Albuterol 2.5mg/3ml Neb Ud) 2.5 mg HHN Q1H PRN PRN Reason: Respiratory Distress Stop: 07/03/18 21:17 Albuterol/Ipratropium (Duoneb Neb) 3 ml HHN Q4HRT [facility] Stop: 07/03/18 22:59 Aspirin (Aspirin Chewable) 81 mg PO DAILY [facility] Stop: 07/04/18 08:59 Last Admin: 05/06/18 10:14 Dose: 81 mg Atorvastatin Calcium (Lipitor) 40 mg PO HS [facility]; Protocol Stop: 07/04/18 20:59 Last Admin: 05/05/18 20:48 Dose: 40 mg Cinacalcet (Sensipar) 30 mg PO DAILY [facility] Stop: 07/04/18 08:59 Last Admin: 05/06/18 10:13 Dose: 30 mg Diclofenac Sodium (Voltaren) 50 mg PO BID [facility] Stop: 07/04/18 08:59 Last Admin: 05/05/18 16:38 Dose: 50 mg Docusate Sodium (Colace) 100 mg PO DAILY [facility] Stop: 07/04/18 08:59 Last Admin: 05/06/18 10:12 Dose: 100 mg Epoetin Vishal (Epogen) 10,000 units SUBQ MWF [facility] Stop: 07/06/18 08:59 Famotidine (Pepcid) 20 mg PO DAILY [facility] Stop: 07/04/18 08:59 Last Admin: 05/06/18 10:13 Dose: 20 mg Furosemide (Lasix) 40 mg PO DAILY [facility] Stop: 07/04/18 08:59 Last Admin: 05/06/18 10:13 Dose: 40 mg Cefepime HCl 1 gm/ Sodium (Chloride) 50 mls @ 100 mls/hr IV Q24HR@2200 [facility] Stop: 07/03/18 21:59 Last Infusion: 05/05/18 21:45 Dose: Infused Lactobacillus Rhamnosus (Culturelle 15b) 1 each PO DAILY [facility] Stop: 07/04/18 08:59 Last Admin: 05/06/18 10:15 Dose: 1 each Megestrol Acetate (Megace) 400 mg PO DAILY [facility]; Protocol Stop: 07/04/18 08:59 Last Admin: 05/06/18 10:12 Dose: 400 mg Metoprolol Tartrate (Lopressor) 50 mg PO BID [facility] Stop: 07/03/18 21:59 Last Admin: 05/06/18 10:14 Dose: 50 mg Midodrine (Proamatine) 5 mg PO TID PRN PRN Reason: HYPOTENSION, SBP LESS THAN 60 Stop: 07/03/18 21:17 Mirtazapine (Remeron) 30 mg PO HS [facility]; Protocol Stop: 07/03/18 22:59 Last Admin: 05/05/18 20:48 Dose: 30 mg Sevelamer Carbonate (Renvela) 800 mg PO TIDWM [facility] Stop: 07/04/18 07:59 Last Admin: 05/06/18 10:19 Dose: 800 mg Vitamin B Complex/Vit C/Folic Acid (Vitamin B Complex W/Vitamin C) 1 tab PO DAILY [facility] Stop: 07/04/18 08:59 Last Admin: 05/06/18 10:14 Dose: 1 tab Warfarin Sodium (Coumadin Per Pharmacy) 1 ea PRN PRN PRN Reason: PROTOCOL Stop: 07/04/18 12:24 Warfarin Sodium (Coumadin) 7.5 mg PO C [facility] Stop: 05/06/18 17:00 Lab - Result Diagrams 05/07/18 04:05 05/07/18 04:05 refused dialysis today, agreed for tomorrow transportation arrangement for outpt. dialysis being done
[2018-05-07] MEDS: Cefepime 1 GM in Sodium Chloride 0.9% 50 ML IV SCH (22:05)
--- NOTE | 2018-05-08 18:52 | Discharge Summary ---
DATE OF DISCHARGE: 05/07/2018 ADMITTING DIAGNOSES: 1. End-stage renal disease with missed hemodialysis. 2. History of congestive heart failure/volume overload with persistent right pleural effusion. 3. History of recent video-assisted thorascopic surgery with chest tube placement. 4. Bilateral basal infiltrates -- chronic. Differential includes a persistent atelectasis versus pneumonia. SECONDARY DIAGNOSES: 1. History of end-stage renal disease with previous history of peritoneal dialysis stopped 2ry to peritonitis, now on hemodialysis. 2. History of chronic anemia secondary to above. 3. History of essential hypertension. 4. History of coronary artery disease. 5. History of congestive heart failure. 6. History of type 2 diabetes. 7. History of recent complex pseudomonas pneumonia. DISCHARGE DIAGNOSES: 1. End-stage renal disease with missed hemodialysis now on schedule. 2. History of CHF/volume overload with persistent, but improved right pleural effusion -- stable. 3. Chronic right pleural effusion/atelectasis -- clinically stable. 4. Bilateral basal infiltrates, likely representing chronic atelectasis and less likely pneumonia given clinical stability (there are no signs or symptoms of infection). CONSULTANTS: Dr. Arriaga, Nephrology. MAJOR PROCEDURES: None. BRIEF HOSPITAL COURSE: The patient is a 67-year-old gentleman who was admitted to this facility back on 01/29/2018 where he was noted to have a large non-improving pleural effusion. He eventually underwent VATS, chest tube placement with decortication and was treated for a complicated pneumonia. He was residing at [facility] and doing well overall, but had missed dialysis given transportation issues. Given that this happened before the weekend, the patient was transferred to this facility for further management and care and to resume hemodialysis. Hemodialysis was on the day of admission and his labs as well as his vital signs have overall remained stable since admission. His blood pressure was noted to be somewhat high on admission, but it slowly improved after he received hemodialysis and his medications were also adjusted. Again, he has remained asymptomatic during the admission. The patient was seen by child support case officer who arranged transportation for hemodialysis. CONDITION ON DISCHARGE: Stable. MEDICATIONS ON DISCHARGE: Dilaudid, Tylenol 650 every 6 p.r.n. for mild pain, Maalox every 4 hours p.r.n. for GI upset, albuterol unit dose every 4 hours p.r.n. for SOB, Eliquis 2.5 b.i.d., aspirin 81 daily, atorvastatin 40 at bedtime, cefepime 1 gram every 24 hours, Sensipar 30 mg every day, diclofenac 50 b.i.d., docusate sodium 100 every day, Procrit 10,000 units Monday, Monday and Fridays, Pepcid 20 mg every day, Lasix 40 every day, Papillion 5/325 every 4 hours p.r.n. for moderate pain, lactobacillus 1 tab b.i.d., Megace 400 mg every day, metoprolol 500 mg b.i.d. and ProAmatine 10 t.i.d. or 15 t.i.d., Remeron 30 at bedtime, liquid protein 30 mL t.i.d., Renvela 800 t.i.d., Spiriva 18 mcg inhalation every day, vitamin B and vitamin C every day. DISPOSITION: This patient was discharged to [facility]. [facility]# [id number] [email or web address]
== END 2018-05-07 22:30 | DRG 640 ==
LOC: ER 12:34 → TELE 15:22 → MSI 05-05 06:36
PROVIDERS: ADMIT Internal Medicine; ATTEND Internal Medicine
DX: E87.5 Hyperkalemia (principal); N18.6 End stage renal disease; I13.11 Hypertensive heart and chronic kidney disease without heart failure, with stage 5 chronic kidney disease, or end stage renal disease; I50.32 Chronic diastolic (congestive) heart failure; Z99.2 Dependence on renal dialysis; Z91.15 Patient's noncompliance with renal dialysis; D64.9 Anemia, unspecified; F32.9 Major depressive disorder, single episode, unspecified; E78.5 Hyperlipidemia, unspecified; I25.10 Atherosclerotic heart disease of native coronary artery without angina pectoris; Z90.49 Acquired absence of other specified parts of digestive tract; E87.70 Fluid overload, unspecified
CPT/HCPCS: 36415-UA; 71045-TC; 80048-TC; 80053-TC; 80074-90; 83735-TC; 83880-TC; 84100-TC; 85025-TC; 85610-TC; 90937; 93005; 94640; 94760; J0692; J0885; Z7610